=== PATIENT | male | born 1965 | race Caucasian/White ===

== ENCOUNTER 2016-08-04 23:25 | Inpatient (IN) | payer OTHER ==
[~2016-08-04] VITALS: Ht 182.9 cm; Wt 99.8 kg
[~2016-08-04 23:25] MED LIST: ACTONEL35 M1 PO; ADVAIR DISKU 11 UNIT INH; ALBUTEROL2.5 MG/3 M INH/SOL; AMITRIPTYLINE150 M2 PO; ASPIRIN CHILDRE81 MG PO; ATORVASTATIN CA20 MG PO; AUGMENTIN 875-1 EACH PO; BACLOFEN10 M1 PO; CANNABIS; COZAAR50 M1 PO; FUROSEMIDE40 M1 PO; FUROSEMIDE80 M1 PO; HYDRODIURIL 2525 MG PO; LASIX40 M1 PO; LASIX40 MG PO; LIORESAL 10MG T10 MG PO; LOSARTAN POTASS25 MG PO; METOLAZONE10 M1 PO; METOLAZONE2.5 M1 PO; METOLAZONE5 M1 PO; NAPROXEN500 MG PO; NEURONTIN800 M2 PO; OFEV150 MG; OXYCODONE HCL30 M1 PO; OXYCODONE HCL30 MG PO; OXYCONTIN60 M1 PO; OXYCONTIN80 MG PO; PREDNISONE10 M2 PO; PREDNISONE5 MG PO; PROAIR HFA8.5 GM INH
--- NOTE | 2016-08-04 23:38 | ED AMS/SEIZURE/WEAK/DIZZY ---
History of Present Illness General Chief Complaint: Dyspnea (COPD, CHF, Other) Stated Complaint: DIFF BREATHING CHEST DISCOMFORT Source: patient, family, old records, EMS Exam Limitations: clinical condition Vital Signs & Intake/Output Vital Signs & Intake/Output Vital Signs Date Time Temp Pulse Resp B/P Pulse O2 O2 Flow FiO2 Ox Delivery Rate 08/05 0358 98 Nasal 2.5L Cannula 08/05 0213 100 Nasal 2.5L Cannula 08/05 0030 100 Nasal 2.5L Cannula 08/04 2336 98.0 100 18 130/76 100 Room Air ED Intake and Output 08/05 0000 08/04 1200 Intake Total Output Total Balance Patient 220 lb Weight Allergies Coded Allergies: Iodinated Contrast Media - Oral and (IODINATED CONTRAST MEDIA - IV DYE) (RED RASH TOLERATES WITH BENADRYL 01/12/16) Reconcile Medications Albuterol Sulfate 2.5 MG/3 ML VIAL.NEB 1 Vial INH/[place] PRN COPD (Reported) Albuterol Sulfate (Albuterol Sulfate Hfa) 90 MCG HFA.AER.AD 2 PUFF INH Q4-6 PRN PRN SHORTNESS OF BREATH (Reported) 90 MCG PER PUFF Amitriptyline Hydrochloride (Amitriptyline HCl) 150 MG TAB 1 TAB PO DAILY NEUROPATHY (Reported) Aspirin (Children's Aspirin) 81 MG TAB.CHEW 1 TAB PO DAILY HEART HEALTH Baclofen 10 MG TABLET 1 TAB PO TID MUSCLE SPASMS (Reported) [CANNABIS] UNKNOWN (Reported) Fluticasone-Salmeterol (Advair 100-50 Diskus) 100 MCG-50 MCG/DOSE BLST.W.DEV 1 PUF INH BID BREATHING PROBLEMS (Reported) Furosemide 40 MG TABLET 2 TAB PO DAILY WATER PILL (Reported) Gabapentin 800 MG TABLET 1 TAB PO 4 TIMES/DAY NEUROPATHY (Reported) Losartan Potassium (Cozaar) 50 MG TABLET 1 TAB PO DAILY BP (Reported) Metolazone 2.5 MG TABLET 1 TAB PO DAILY PRN UNKNOWN (Reported) Oxycodone HCl (Oxycontin) 60 MG TAB.ER.12H 1 TAB PO BID PAIN (Reported) Oxycodone HCl 30 MG TABLET 1 TAB PO BID PAIN (Reported) Prednisone 10 MG TABLET 1 TAB PO DAILY COPD /INTERSTITIAL LUNG DISEAS Risedronate Sodium (Actonel) 35 MG TABLET 1 TAB PO QMON BONE (Reported) Triage Nurses Notes Reviewed? yes Onset: Abrupt Duration: hour(s): Timing: single episode today Injury Environment: home Severity: moderate Modifying Factors: Improves With: rest. Associated Symptoms: cough HPI: 51 yo gentleman h/o copd, presents with dyspnea and increased lethargy. Past History Travel History Traveled to [place] past 21 day No Medical History Any Pertinent Medical History? see below for history Neurological: peripheral neuropathy EENT: NONE Cardiovascular: CHF, hypertension, PULMONARY HTN RIGHT BUNDLE BRANCH BLOCK Respiratory: COPD, ? 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 No Review of Systems Review of Systems Constitutional: Reports: no symptoms. EENTM: Reports: no symptoms. Respiratory: Reports: no symptoms. Cardiovascular: Reports: no symptoms. GI: Reports: no symptoms. Genitourinary: Reports: no symptoms. Musculoskeletal: Reports: no symptoms. Skin: Reports: no symptoms. Neurological/Psychological: Reports: no symptoms. Hematologic/Endocrine: Reports: no symptoms. Immunologic/Allergic: Reports: no symptoms. All Other Systems: Reviewed and Negative Physical Exam Physical Exam General Appearance: well developed/nourished, lethargic, but easily arousable Head: atraumatic, normal appearance Eyes: Bilateral: normal appearance. Ears, Nose, Throat: normal pharynx, normal ENT inspection Neck: normal inspection, supple, full range of motion Respiratory: bilateral wheeze with prolonged expiratory phase Cardiovascular: regular rate/rhythm Gastrointestinal: normal bowel sounds, soft, non-tender, no organomegaly Back: normal inspection Extremities: normal range of motion Neurologic/Psych: no motor/sensory deficits, awake, alert, oriented x 3 Skin: intact, normal color, warm/dry Core Measures ACS in differential dx? No CVA/TIA Diagnosis: No Severe Sepsis Present: No Septic Shock Present: No All Positive = PERC Ruled Out: Positive: age < 50 years, heart rate < 100 bpm, O2 sat > 94%, no hemoptysis, no hormone use, no prior DVT or PE, no unilateral leg swellin, no surgery/trauma w/ in 4w. Progress Differential Diagnosis: copd vs med related issues vs pneumonia vs other. Plan of Care: Orders Procedure Date/time Status Nothing by Mouth 08/05 B Active Smith, Insertion/Removal/Asses 08/05 402 Active CULTURE,URINE 08/05 402 Active Skin Integrity Protocol 08/05 401 Active Skin/Pressure Ulcer Assess (Sk 08/05 401 Active Teach/Educate 08/05 330 Active Nutritional Intake, Monitor 08/05 330 Active Isolation 08/05 330 Active Patient Care Conference 08/05 330 Active Activity/Ambulation 08/05 330 Active Patient Data 08/05 023 Active EKG 08/05 022 Active Saline Lock 08/05 158 Active Misc Message 08/05 158 Active ED Holding Orders 08/05 158 Active Admit to inpatient 08/05 015 Active Vital Signs 08/05 015 Active Code Status 08/05 015 Active BLOOD CULTURE 08/05 0140 Active BLOOD CULTURE 08/05 0138 Active Add-on Test (ER Only) 08/05 0014 Active URINE DRUG SCREEN FOR ER ONLY 08/05 0014 Active URINALYSIS 08/05 0014 Active ETHANOL 08/04 2356 Complete ARTERIAL BLOOD GAS (GEN) 08/04 2337 Complete TROPONIN LEVEL 08/04 2337 Complete COMPREHENSIVE METABOLIC PANEL 08/04 2337 Complete CBC WITHOUT DIFFERENTIAL 08/04 2337 Complete Intake & Output 08/04 2333 Active Laboratory Tests 08/05/16 0010: pH 7.40, pCO2 40, pO2 52 L, HCO3 24, ABG O2 Sat (Measured) 86.0 L, P-50 (Temp Corrected) Y, Carboxyhemoglobin 1.6, O2 Concentration % RA, Temperature 98.0, Phlebotomy Draw Site LEFT RADIAL 08/04/166: Anion Gap 4 L, Estimated GFR 40 L, BUN/Creatinine Ratio 20.0, Glucose 80, Calcium 8.4, Total Bilirubin 0.2, AST 31, ALT 24, Alkaline Phosphatase 214 H, Troponin I 0.02, Total Protein 5.8 L, Albumin 2.1 L, Globulin 3.7, Albumin/ Globulin Ratio 0.6 L, CBC w Diff MAN DIFF ORDERED, RBC 3.67 L, MCV 77.5 L, MCH 25.4 L, RDW 20.5 H, MPV 5.8 L, Gran % 59.9, Lymphocytes % 25.5, Monocytes % 6.9, Eosinophils % 6.7 H, Basophils % 1.0, Absolute Granulocytes 10.2 H, Absolute Lymphocytes 4.3 H, Absolute Monocytes 1.2 H, Absolute Eosinophils 1.1 , Absolute Basophils 0.2, Platelet Estimate ADEQUATE, Hypochromic-Microcytic 1+, Poikilocytosis 1+, Stomatocytes 1+, PUBS MCHC 32.8 L, Serum Alcohol < 10.0 Microbiology 08/05 402 URINE ROUT: Urine Culture - ORD 08/05 0208 BLOOD: Blood Culture - RECD 08/05 015 BLOOD: Blood Culture - RECD Diagnostic Imaging: Viewed by Me: Radiology Read. Discussed w/RAD: Radiology Read. CXR Impression: no acute abnormality, no infiltrates, normal size heart, normal mediastinum, no definitive consolidation... full report below. Initial ED EKG: normal axis, normal intervals, normal p-waves, normal QRS complex, normal sinus rhythm Comments: PATIENT: TORSTEN CHAUDHARI PRESENT AGE: 51 PATIENT ACCOUNT NO: [id number] : 67 LOCATION: [facility] ORDERING PHYSICIAN: MEÑO LEI MD SERVICE DATE: 08/04/16 EXAM TYPE: RAD - XRY-PORTABLE CHEST XRAY EXAMINATION: XR PORTABLE CHEST CLINICAL INFORMATION: Wheezing COMPARISON: 06/30/2016 TECHNIQUE: Portable view of the chest was obtained. FINDINGS: Lung volumes are symmetric. There is redemonstrated diffuse interstitial prominence bilaterally, favoring underlying chronic lung disease. No definite acute consolidation. No evidence of pneumothorax or significant pleural effusion. The cardiomediastinal silhouette is grossly stable. There is contour irregularity of the left humeral head. IMPRESSION: Redemonstrated diffuse initial prominence favoring underlying chronic lung disease. No definite consolidation. DICTATED BY: KYMBERLY WHEAT MD DATE/TIME DICTATED:08/05/1612 COSTUME DRAPER:LAURA DATE/TIME TRANSCRIBED:08/05/1612 CONFIDENTIAL, DO NOT COPY WITHOUT APPROPRIATE AUTHORIZATION. <Electronically signed in Other Vendor System> SIGNED BY: KYMBERLY WHEAT MD 08/05/1617 Departure Departure Disposition: STILL A PATIENT Condition: Stable Clinical Impression Primary Impression: COPD exacerbation Secondary Impressions: Acute renal failure, Mental status change Referrals: YULI FRAZIER MD (PCP/Family) Departure Forms: Customer Survey General Discharge Information Admission Note Spoke With: YANIRA BARKER MD Documentation of Exam: Documentation of any treatments & extenuating circumstances including Concerns Regarding Discharge (functional status, medication knowledge or non-compliance, living conditions, etc.) that warrant an admission rather than observation: pt with dyspnea, hypoxia on abg, wheezing, also with acute renal failure, and mental status change (lethargy... most likely due to medications)... pt merits medical management, remove narcotics and monitor, give steroids/abx/iv fluids. Critical Care Note Critical Care Note Critical Care Time: 30-74 min
--- NOTE | 2016-08-04 23:41 | NUR ---
TRIAGE: PATIENT TO ER FROM HOME VERY DROWSY BUT AROUSABLE TO SHOUTING. 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 REPORTS NON-COMPLIANT TO HOME MEDS X 1 DAY. VSS. PATIENT ANSWERING QUESTIONS INTERMITTENTLY, THOUGH FALLS ASLEEP DURING TRIAGE. REPORTS COMPLIANT W/ MEDS. PATIENT NOTED ON MANY NARCOTICS FOR HX CHRONIC PAIN AND NEURIOPATHY, FOUND SITTING ON PORCH IN HIS HOME WHEELCHAIR. REPORTED TO EMS +AGITATION REGARDING BEING TRANSPORTED TO HOSPITAL.
--- NOTE | 2016-08-05 | NUR ---
LABS DRAWN AND SENT (1SST,1LAV,1 BLUE, 1SST)
--- NOTE | 2016-08-05 00:18 | RADIOLOGY REPORT ---
EXAMINATION: XR PORTABLE CHEST CLINICAL INFORMATION: Wheezing COMPARISON: 06/30/2016 TECHNIQUE: Portable view of the chest was obtained. FINDINGS: Lung volumes are symmetric. There is redemonstrated diffuse interstitial prominence bilaterally, favoring underlying chronic lung disease. No definite acute consolidation. No evidence of pneumothorax or significant pleural effusion. The cardiomediastinal silhouette is grossly stable. There is contour irregularity of the left humeral head. IMPRESSION: Redemonstrated diffuse initial prominence favoring underlying chronic lung disease. No definite consolidation.
[2016-08-05 00:23] LABS: ABSOLUTE BASOPHIL COUNT 0.2 /CUMM (0.0-0.2); ABSOLUTE EOSINOPHIL COUNT 1.1 /CUMM (0.0-0.7); ABSOLUTE GRANULOCYTE CT 10.2 /CUMM (1.4-6.5); ABSOLUTE LYMPH COUNT 4.3 /CUMM (1.2-3.4); ABSOLUTE MONOCYTE COUNT 1.2 /CUMM (0.10-0.60); EOSINOPHIL % 6.7 % (0-5); GRANULOCYTE % 59.9 % (42.2-75.2); HEMATOCRIT 28.4 % (42-52); MEAN CORPUSCULAR HGB 25.4 PG (27.0-31.0); MEAN CORPUSCULAR HGB CONC 32.8 G/DL (33.0-37.0); MEAN CORPUSCULAR VOLUME 77.5 FL (80.0-94.0); MEAN PLATELET VOLUME 5.8 FL (7.4-10.4); PLATELET COUNT 547 /CUMM (130-400); RBC DISTRIBUTION WIDTH 20.5 % (11.5-14.5); RED BLOOD CELL CT 3.67 /CUMM (4.70-6.10)
--- NOTE | 2016-08-05 00:25 | NUR ---
RESP AT BEDSIDE FOR TX. PT PUT ON 2.5 L O2 NC WHICH HE IS ON AT HOME/BASELINE. SATTING 96%.
--- NOTE | 2016-08-05 02:12 | NUR ---
ROCEPHIN INFUSING S/P BLOOD CULTURE COLLECTION. PATIENT REMAINS DROWSY THOUGH AROUSABLE FOR APPROX 5-8 SECONDS TO VERBAL STIMULI. FAMILY AT BEDSIDE. UPDATED ON POC FOR ADMISSION.
--- NOTE | 2016-08-05 02:26 | NUR ---
PATIENT TO CT BY STRETCHER.
--- NOTE | 2016-08-05 02:29 | History & Physical ---
THALIA HULL,[facility] [place]/05/16 0228: General Information and HPI MD Statement: I have seen and personally examined COSMO MONGE and documented this H&P. The patient is a 51 year old M who presented with a chief complaint of altered mental status. Source of Information: family, old records Exam Limitations: unable to give history, not alert/orientated, clinical condition History of Present Illness: Mr. 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 Patient is lethargic and unable to provide any history, thus history is obtained from patient's and EMR. Per patient's , patient was in his usual state of health until the morning of current presentation, when he became lethargic. He also complained of leg and back pain. Patient's held his morning dose of pain medications, Oxycontin and Oxycodone, in the setting of lethargy. Patient usually sleeps from 10 AM to 3 PM every day unless he has doctor appointments, but this morning he could not wake up for his scheduled appointment with senior painter Dr. Dailey for anemia. His continuously monitored his vitals and oxygen saturation by pulse oximetry throughout the day which were normal, however patient remained lethargic. Around 10:30 PM, patient became agitated and combative and tried to leave the house. EMS was called and patient was brought to the ED. Of note, patient has barely had anything to eat or drink the whole day and has not voided in the past 12 hours. His believes that it is unlikely that patient may have taken too many pain meds, as she is the one who usually administers his medications. Per patient's , his respiratory status has been worsening for the past 2 months and currently he gets dyspneic with minimal exertion, such as when using the bathroom, and requires 5 L of oxygen. Of note, patient is a current smoker of 1 PPD. Patient follows with CHF clinic as outpatient and is on an aggressive diuretic regimen. He takes metolazone 2.5 mg PO QD and furosemide 80 mg PO BID as well as IV furosemide once or twice per week at the CHF clinic. Patient has also been having weight gain as well as increasing leg swelling for the past few months. Allergies/Medications Allergies: Coded Allergies: Iodinated Contrast Media - Oral and (IODINATED CONTRAST MEDIA - IV DYE) (RED RASH TOLERATES WITH BENADRYL 01/12/16) Home Med list Albuterol Sulfate (Albuterol Sulfate Hfa) 90 MCG HFA.AER.AD 2 PUFF INH Q4-6 PRN PRN SHORTNESS OF BREATH (Reported) 90 MCG PER PUFF Amitriptyline Hydrochloride (Amitriptyline HCl) 150 MG TAB 1 TAB PO DAILY NEUROPATHY (Reported) Aspirin (Children's Aspirin) 81 MG TAB.CHEW 1 TAB PO DAILY HEART HEALTH Baclofen 10 MG TABLET 1 TAB PO TID MUSCLE SPASMS (Reported) [CANNABIS] UNKNOWN (Reported) Fluticasone-Salmeterol (Advair 100-50 Diskus) 100 MCG-50 MCG/DOSE BLST.W.DEV 1 PUF INH BID COPD (Reported) Furosemide 40 MG TABLET 2 TAB PO DAILY WATER PILL (Reported) Gabapentin 800 MG TABLET 1 TAB PO 4 TIMES/DAY NEUROPATHY (Reported) Losartan Potassium (Cozaar) 50 MG TABLET 1 TAB PO DAILY BP (Reported) Metolazone 2.5 MG TABLET 1 TAB PO DAILY PRN UNKNOWN (Reported) Oxycodone HCl (Oxycontin) 60 MG TAB.ER.12H 1 TAB PO BID PAIN (Reported) Oxycodone HCl 30 MG TABLET 1 TAB PO BID PAIN (Reported) Prednisone 10 MG TABLET 1 TAB PO DAILY COPD /INTERSTITIAL LUNG DISEAS Risedronate Sodium (Actonel) 35 MG TABLET 1 TAB PO QMON BONE (Reported) Compliance With Home Meds: GOOD Past History Travel History Traveled to [place] past 21 day No Medical History Blood Transfusion Hx: Yes Neurological: peripheral neuropathy (critical illness neuropathy) EENT: NONE Cardiovascular: CHF, hypertension, hyperlipidemia, right-sided heart failure Respiratory: COPD, 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), ARDS and prolonged mechanical ventilation Gastrointestinal: NONE Hepatic: NONE Renal: NONE Musculoskeletal: OSTEOPENIA, 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 Home Who Do You Live With? spouse, child Services at Home: Oxygen Smoking Status: Current Everyday Smoker (1 PPD) ETOH Use: occasional use Illicit Drug Use: denies illicit drug use Living Will? yes Functional Ability ADLs Independent: dressing, eating, toileting, bathing. Ambulation: independent IADLs Needs Assist: food prep, medication admin. Review of Systems Review of Systems Constitutional: Denies: chills, fever. EENTM: Reports: no symptoms. Cardiovascular: Reports: peripheral edema. Respiratory: Reports: no symptoms. GI: Reports: no symptoms. Genitourinary: Reports: no symptoms. Musculoskeletal: Reports: no symptoms. Skin: Reports: no symptoms. Neurological/Psychological: Reports: see HPI. Hematologic/Endocrine: Reports: no symptoms. Immunologic/Allergic: Reports: no symptoms. Exam & Diagnostic Data Last 24 Hrs of Vital Signs/I&O Vital Signs Date Time Temp Pulse Resp B/P Pulse O2 O2 Flow FiO2 Ox Delivery Rate 08/05 0213 100 Nasal 2.5L Cannula 08/05 0030 100 Nasal 2.5L Cannula 08/04 2336 98.0 100 18 130/76 100 Room Air Intake & Output 08/05 0800 08/05 0000 08/04 1600 Intake Total Output Total Balance Patient 99.79 kg Weight Physical Exam General Appearance Lethargic but Arousable to Verbal Stimuli HEENT PERRLA, Dry Mucous Membranes, Oropharynx Clear Without Erythema or Exudates Neck No JVD Cardiovascular Regular Rate, Normal S1, Normal S2, No Murmurs, Gallops, Rubs Lungs Coarse Breath Sounds on Bilateral Anterior Lung Hamilton Abdomen Soft, No Tenderness, Positive Bowel Sounds Extremities No Cyanosis, Clubbing on Bilateral Fingers, 2+ Pitting Edema and Chronic Venous Stasis Changes on Bilateral Lower Extremities Last 24 Hrs of Labs/Alonso: Laboratory Tests 08/05/16 0010: pH 7.40, pCO2 40, pO2 52 L, HCO3 24, ABG O2 Sat (Measured) 86.0 L, P-50 (Temp Corrected) Y, Carboxyhemoglobin 1.6, O2 Concentration % RA, Temperature 98.0, Phlebotomy Draw Site LEFT RADIAL 08/04/16 3676: Anion Gap 4 L, Estimated GFR 40 L, BUN/Creatinine Ratio 20.0, Glucose 80, Calcium 8.4, Total Bilirubin 0.2, AST 31, ALT 24, Alkaline Phosphatase 214 H, Troponin I 0.02, Total Protein 5.8 L, Albumin 2.1 L, Globulin 3.7, Albumin/ Globulin Ratio 0.6 L, CBC w Diff MAN DIFF ORDERED, RBC 3.67 L, MCV 77.5 L, MCH 25.4 L, RDW 20.5 H, MPV 5.8 L, Gran % 59.9, Lymphocytes % 25.5, Monocytes % 6.9, Eosinophils % 6.7 H, Basophils % 1.0, Absolute Granulocytes 10.2 H, Absolute Lymphocytes 4.3 H, Absolute Monocytes 1.2 H, Absolute Eosinophils 1.1 , Absolute Basophils 0.2, Platelet Estimate ADEQUATE, Hypochromic-Microcytic 1+, Poikilocytosis 1+, Stomatocytes 1+, PUBS MCHC 32.8 L, Serum Alcohol < 10.0 Microbiology 08/05 0208 BLOOD: Blood Culture - RECD 08/05 154 BLOOD: Blood Culture - RECD Diagnostic Data EKG Results Sinus tachycardia HR 102 RBBB or LPFB QTc 485 CXR Results Redemonstrated diffuse initial prominence favoring underlying chronic lung disease. No definite consolidation. Other Results CT HEAD: Limited evaluation due to patient motion artifact. No acute findings identified. Assessment/Plan Assessment: Mr. 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 #AMS: Most likely metabolic encephalopathy secondary to volume contraction and DEE. Differential includes polypharmacy, acute hypoxemic respiratory failure and infection including aspiration pneumonia or UTI. CT Head unremarkable. * UTox ordered. * Check ammonia. * Patient is on amitriptyline 150 mg PO QD, Baclofen 10 mg PO TID and gabapentin 800 mg PO QID. Continue these medications, but at lower doses to avoid seizures. * BCx, UCx and UA ordered to rule out infection. #Acute hypoxemic respiratory failure: Most likely secondary to COPD exacerbation given coarse breath sounds on lung exam. However CHF is a possibility in the setting of BLE edema, although CXR is clear. ABG 7.40/40/52/24 on 2.5 L NC, remarkable for low pO2. S/p Solumedrol 125 mg IV in the ED. * Pulmonology consulted. Appreciate their recs. * TRC nebs and pulmonary toilet. * Solumedrol IV Q8H. * Provide supplemental oxygen as needed to keep SpO2 > 92%. * Repeat CXR in the AM to rule out consolidation. #DEE: Cr 1.8 on admission, increased from baseline of 1.0. Most likely pre-renal secondary to volume contraction in the setting of reduced PO intake and aggressive diuretic regimen including Lasix and metolazone. Patient has had very low UOP, which could represent urinary retention secondary to amitriptyline, but he is resistant to straight cath or Lorenzana placement. * Consider nephrology consult. * Strict I/Os. * Gentle hydration with NS @ 50 cc/hr. Monitor for respiratory distress due to concern for volume overload in the setting of CHF. * Continue to monitor lytes and kidney function. * Avoid nephrotoxic medications. * Hold all diuretics, furosemide and metolazone. * Hold prior to admission losartan. * Straight cath or bladder scan patient to rule out urinary retention. HFpEF: Most recent ECHO in December 2015 with LVEF estimated at 60-65%. History of pulmonary HTN and right-sided heart failure. Follows with CHF clinic and is on an aggressive diuretic regimen. Takes metolazone 2.5 mg PO QD and furosemide 80 mg PO BID as well as IV furosemide once or twice per week at the CHF clinic. Currently patient appears dry on exam, although has been having leg swelling and weight gain concerning for CHF. * Obtain cardiology consult. Appreciate their recs. * Hold all diuretics, furosemide and metolazone. #Anemia: Hgb 9.3 on admission. MCV 77.5 consistent with microcytic anemia. Chronic anemia requiring blood transfusions for which he follows with Dr. Dailey. Has had positive FOBT recently, GI work-up with endoscopy and colonoscopy pending. * NTD. #Leukocytosis: WBC 17 on admission. Likely secondary to chronic steroid use as patient is on maintenance steroids, prednisone 10 mg PO QD, for COPD although infection needs to be ruled out in the setting of encephalopathy. Patient is afebrile. CXR with no evidence of pneumonia. * BCx, UCx and UA ordered to rule out infection. Diet: NPO DVT PPx: HSQ and ALPs Pain: Tylenol 650 mg PO Q6H PRN for mild pain (scale 1-3) CODE: FULL As Ranked By This Provider Problem List: 1. COPD exacerbation 2. Altered mental status 3. Acute renal failure 4. ILD (interstitial lung disease) 5. (HFpEF) heart failure with preserved ejection fraction Core Measures/Miscellaneous Acute Coronary Syndrome ACS Diagnosis: No Cerebrovascular Accident CVA/TIA Diagnosis: No Congestive Heart Failure CHF Diagnosis: No Venous Thromboembolism VTE Risk Factors: Acute medical illness, Age > 40, CHF or Resp failure, Smoking VTE Prophylaxis Ordered Inpt: Mech & Pharm No Mech VTE prophylaxis d/t: No contraindications No VTE Pharm Prophylaxis d/t: No contraindications VTE Diagnosis: No VTE Type: NONE VTE Confirmed by (Test): NONE Severe Sepsis Severe Sepsis Present: No Septic Shock Septic Shock Present: No Miscellaneous Documentation Attending Case Discussed With: YANIRA BARKER MD Primary Care Physician: YULI FRAZIER MD Patient sees these Specialists [place] Cosmo Willingham MD Manufacturing Planner Shawanda Mckoy MD Neurologist Zaki Liu MD Interactive Developer Cosmo Aguilar MD Fire Alarm Installer Garrett Dailey MD Ice Cream Mixer Garrett Mcgraw MD Level of Patient Care: Telemetry BRYANT HULLCLAU 08/05/16 0534: Resident Review Statement Resident Statement: examined this patient, discussed with public health internship, agreed with public health internship Other Findings: 51 YO male with pmh copd on home O2, ild, chf, htn, hld and anemia who presents with ams since waking up this morning. During the interview patient is lethargic and unable to provide history. Most of the history was obtained from patients . he also is complained of leg and back pain. is unsure as to why he is lethargic, denies fevers, chills, urinary tract symptoms, cough or sputum production. He does have chronic pain though she has been holding his pain medications since last night. She reports that he has been aggitated today and more lethargic and that prompted his arrival. She feels that his respiratory status has been declining as of late, and complains that he has been gaining weight despite going to chf clinic for iv diuretics. T 98, P 100, RR 18, BP 130/76, O2 100 2.5NC Alert Oriented X1 NCAT, BREEZY, EOMI, cracked lips, with dry mucous membranes CVS S1,S2 difficult to assess due to coarse adventious sounds Resp coarse breath sounds scattered bilaterally Abdomen soft, non tender, BS+ Ext healing wounds on feet, no source of infection, trace edema b/l ABG 7.40, pCO2 40, pO2 52, ABG O2 Sat 86 WBC 17K HH 9.3/28.4 Creatinine 1.8 Anion gap 4, Total Protein 5.8, Albumin 2.1 Sinus Tachycardia HR 102 RBB QTc [address] limited evaluation due to patient motion artifact, no acute findings identified CXR diffuse inital prominence favoring underlying chronic lung disease, no definite consolidation 50 YO male with pmh of copd, chf, htn, ild presents to the hospital with acute onset ams that started today, abg demonstrates hypoxia. urine samples have been asked from patient unable to void, denies placement of lorenzana or straight catheterization. will need to check urine, urine culture, toxicology as sources that may be causing his ams. His creatinine has increased on this admission, likely prerenal however post renal cant be ruled out at this time as will not allow placement of catheter. if he doesnt void he may require renal usg. this has been discussed with him at length. for now we will hydrate him with gentle fluids. we will check ammonia levels and cardiac enzymes/ekg. patient was re- examined at 5am and was more alert and understood our plan. YANIRA BARKER 08/05/16 0640: Attending MD Review Statement Attending Statement Attending MD Statement: examined this patient, discuss w/resident/PA/POSITION CLASSIFIER, agreed w/resident/PA/POSITION CLASSIFIER, discussed with family, reviewed EMR data (avail), reviewed images, amended to note Attending Assessment/Plan: Cc: Lethargy, SOB. PMH: HFpEF, ILD, COPD on 2.5 L O2, HTN, HTN Patient presented with lethargy, SOB, increased oxygen demand, confusion, decreased by mouth intake, decreased urine output. History is mostly obtained from patient's . Patient's helps him in medications. They refuse any extra doses of pain medications taken today. Vitals: Afebrile, HR 100, RR 20, BP 130/76, saturating 100% on 2.5 L. On exam: Patient is alert, O 2, irritable, no acute distress, mucosa dry, no JVD, neck supple, no lymphadenopathy, CVS: S1-S2, RRR. RS: Diffuse coarse crackles. Abdomen: Soft, NT, ND, bowel sounds present. Bilateral lower extremity edema, chronic stasis changes. There are some open wounds and scabs on the medial and lateral aspect of ankle, does not appear infected. No evidence of cellulitis. No focal neuro deficit, overall decreased strength in lower extremities. Labs: WBC 17.0, as be 9.3, platelets 547, BUN 36, creatinine 1.8, glucose 80, alkaline phosphatase 214, troponin 0.02, albumin 2.1. ABG 7.40/40/52/24 on [address] head: Limited evaluation due to patient's motion artifact CXR: Redemonstration of diffuse interstitial prominence favoring underlying chronic lung disease. No consolidation. A and P #1 encephalopathy: Probably metabolic secondary to volume contraction and DEE. Rule out infection with blood culture, urine analysis and urine cultures. CT head is motion artifact, but no focal neuro deficit. Check ammonia. Polypharmacy can be one of the reasons. Patient on amitriptyline, gabapentin and baclofen, continue these medications at lower doses to avoid any seizure precipitation. #2 acute kidney injury: Patient's previous creatinine was 1.0, 5 days back. Patient on aggressive diuretic's, Lasix and metolazone. Follows up with heart failure clinic. Probably prerenal secondary to volume contraction. Continue gentle hydration normal saline at 50 mL per hour for 500 mL to 1 L. Keep a close eye on respiratory status for volume overload. Rule out retention as patient is on amitriptyline, either straight cath or bladder scan. Strict I's and O's monitoring, nephrology consult. Hold losartan for now. #3 acute worsening of hypoxia: Patient has underlying COPD, ILD: Continue nebulization with albuterol and ipratropium, continue O2 by nasal cannula, Mucinex. Repeat chest x-ray in a.m. to rule out any developing consolidation or vascular congestion. #4 history of heart failure: Currently patient appears volume contracted, continue gentle hydration, hold Lasix, and inform cardiology. #5 anemia: Appears chronic, iron deficiency, has been following up with hematology outpatient. #6 leukocytosis: Patient on chronic prednisone, which may cause leukocytosis. It has been chronic. But given patient's encephalopathy rule out infection with urine culture urine analysis blood cultures. #7 DVT prophylaxis with heparin, adequate pain control.
--- NOTE | 2016-08-05 03:13 | NUR ---
HOUSE STAFF AT BEDSIDE FOR EVAL
--- NOTE | 2016-08-05 03:22 | CT SCAN REPORT ---
EXAMINATION: CT HEAD WITHOUT CONTRAST CLINICAL INFORMATION: Mental status change COMPARISON: 12/22/2015 TECHNIQUE: Contiguous axial imaging was performed from the skull base to vertex without intravenous administration of contrast. DLP: 1220.30 mGy-cm. FINDINGS: Assessment is limited due to patient motion artifact. No acute intracranial hemorrhage or territorial infarction is identified. No abnormal mass effect or midline shift is seen. Ham to white matter differentiation is well preserved. No extra-axial fluid collections are identified. The ventricles are normal in size. There is appreciable no abnormal attenuation within the brain parenchyma. The osseous structures and soft tissues are normal. The mastoid air cells and visualized portions of the paranasal sinuses are well aerated. IMPRESSION: Limited evaluation due to patient motion artifact. No acute findings identified.
[2016-08-05] MEDS ORDERED: ADVAIR 100-501 EACH INH (04:08)
--- NOTE | 2016-08-05 04:17 | NUR ---
PATIENT MORE ALERT AT THIS TIME, SPEECH REMNAINS SLOW AND CLEAR. PATIENT EDUCATED ON YEE INDICTION AND INSERTION. PATIENT REFUSING, REPORTING "NO WAY, NO WAY." PATIENT WILL ATTEMPT TO USE URINAL AT THIS TIME. HOUSE STAFF PAGED.
--- NOTE | 2016-08-05 04:23 | NUR ---
PATIENT CONTINUES TO REFUSE YEE. URINAL PROPPED IN PLACE AT THIS TIME, PATIENT THEN STATES "WELL I DON'T HAVE TO GO RIGHT NOW." AWAITING CALL FROM HOUSE STAFF. PATIENT NOTED W/ SLIMY, WHITE LIQUID ON PENIS, +ODOR.
--- NOTE | 2016-08-05 04:29 | NUR ---
SPOKE W/ MD OLGUIN (BEEPER 300) REGARDING REFUSAL OF YEE CATH AND WHITE SUBSTANCE ON PENIS. PER MD, BLADDER SCAN PATIENT IF PATIENT ALLOWS. CORETTA ALICIA OBTAINING BLADDER SCANNER FROM ICU AT THIS TIME. PATIENT NOTED W/ DRY MUCOUS MEMBRANES. NS INITIATED AT 50ML/HR PER EMAR. TOLERATED WELL.
--- NOTE | 2016-08-05 04:58 | NUR ---
PATIENT PLACED ON HOSPITAL BED IN ROOM, INFORMED THAT HE WILL BE A HOLD IN DEPT. BLADDER SCANNER UNOBTAINABLE AT THIS TIME, MD AWARE. WILL CONTINUE TO ATTEMPT TO OBTAIN FROM ICU. PATIENT DECLINES ANY SUPPORTIVE PILLOWS, REFUSING BILATERAL LOWER EXT TO BE ELEVATED OR SUPPORTIVE PILLOWS. REFUSING TO LET NURSING STAFF TURN AND REPOSITION AT THIS TIME. EDUCATED ON RISKS, CONTINUES TO REFUSE. HOUSE STAFF AT BEDSIDE.
--- NOTE | 2016-08-05 05:10 | NUR ---
PATIENT REQUESTING WATER, AWARE ORDER FOR NPO IS PLACED, MD PAGED TO CONFIRM.
--- NOTE | 2016-08-05 06:21 | NUR ---
IPOC CONTINUED AND UTD.
--- NOTE | 2016-08-05 06:42 | Admission Certification ---
Admission Certification Certification Statement - As attending physician, I certify that at the time of - admission, based on clinical presentation, severity of - symptoms, need for further diagnostic testing and - therapeutic interventions, and risk of adverse outcomes - without in-hospital treatment, in my clinical assessment, - this patient requires an acute hospital stay for a minimum - of two nights or longer. I have also considered psychsocial - factors such as support system, advanced age, financial - issues, cognitive issues, and failed out-patient treatments, - past re-admission history, safety of patient, and lack of - compliance as applicable. Specific rationale supporting this admission is: Encephalopathy, acute kidney injury
--- NOTE | 2016-08-05 06:48 | NUR ---
PATIENT NOTED TO BE INCONTINENT OF URINE INTO BED PRIOR TO TELLING RN KNOW OF PATIENT URGE TO VOID. URINE SPECIMEN NOT OBTAINED. CONTINUES TO REFUSE YEE CATH. MD OLGUIN (BEEPER 300) AWARE. PATIENT ALSO REFUSING HEPARIN SC SHOT PER ORDER, AWARE. PATIENT LINENS CHANGED, JOCY CARE PROVIDED, TURNED AND REPOSITIONED S/P CHANGING PATIENT.
[2016-08-05 06:50] VITALS: BP 161/85
--- NOTE | 2016-08-05 06:52 | NUR ---
IPOC CONTINUED AND UTD.
--- NOTE | 2016-08-05 07:17 | NUR ---
CARE ASSUMED BY THIS RN, PT SLEEPING, NORMAL RR NOTED. WILL CONTINUE TO MONITOR.
--- NOTE | 2016-08-05 07:41 | PN- Housestaff ---
MANISH HULL,LISETTE 08/05/16 0740: Subjective Follow-up For: AMS Tele-Events Since Last Visit: No overnight events noted SInus tachy Subjective: Patient is more alert, awake today, lying comfortable on bed. able to answer questions appropriately Denies shortness of breath, breathing at baseline Review of Systems Constitutional: Reports: see HPI. Objective Last 24 Hrs of Vital Signs/I&O Vital Signs Date Time Temp Pulse Resp B/P Pulse O2 O2 Flow FiO2 Ox Delivery Rate 08/05 0834 95 Nasal 2.0L Cannula 08/05 0834 98.3 118 20 152/66 95 Nasal 2.0L Cannula 08/05 0829 98.3 118 20 152/66 95 Nasal 2.0L Cannula 08/05 0650 97.7 108 20 161/85 98 Nasal 2.5L Cannula 08/05 0631 97.7 108 20 161/85 98 Nasal 2.5L Cannula 08/05 0418 96.6 100 20 137/66 96 Nasal 2.5L Cannula 08/05 0358 98 Nasal 2.5L Cannula 08/05 0213 100 Nasal 2.5L Cannula 08/05 0030 100 Nasal 2.5L Cannula 08/04 2336 98.0 100 18 130/76 100 Room Air Intake & Output 08/05 1600 08/05 0800 08/05 0000 Intake Total Output Total Balance Patient 220 lb 220 lb Weight Physical Exam General Appearance: Alert, Oriented X3, Cooperative, No Acute Distress Skin: multiple bruising present in the UE HEENT: dry mucous membrane Cardiovascular: Regular Rate, Normal S1, Normal S2, No Murmurs Lungs: b/l crackles present. b/l ronchi present Abdomen: Normal Bowel Sounds, Soft, No Tenderness Neurological: No focal neurological defecit Extremities: b/l swelling present Current Medications: Current Medications Sig/Silvana Start time Last Medication Dose Route Stop Time Status Admin Acetaminophen 650 MG Q6P PRN 08/05 0645 AC PO Albuterol Sulfate 3 ML Q6P PRN 08/05 0645 AC INH Albuterol Sulfate 3 ML ONCE ONE 08/04 2345 DC 08/05 INH 08/04 2346 0030 Amitriptyline HCl 150 MG DAILY 08/05 1000 AC PO Aspirin 81 MG DAILY 08/05 1000 AC PO Azithromycin 500 MG ONCE ONE 08/05 0145 DC 08/05 Dextrose/Water 250 ML IV 08/05 0244 0240 Baclofen 10 MG TID 08/05 1000 AC PO Budesonide/ 2 PUF BID 08/05 1000 AC Formoterol Fumarate INH Ceftriaxone Sodium 0 .STK-MED ONE 08/05 0203 DC .ROUTE Ceftriaxone Sodium 1,000 MG ONCE ONE 08/05 0145 DC 08/05 IV 08/05 0146 0210 Gabapentin 600 MG Q8 08/05 1400 UNVr PO Heparin Sodium 5,000 UNIT Q8 08/05 0636 AC (Porcine) SC Ipratropium Nolan 2.5 ML ONCE ONE 08/05 0645 DC INH 08/05 0646 Ipratropium Nolan 2.5 ML ONCE ONE 08/04 2345 DC 08/05 INH 08/04 2346 0029 Methylprednisolone 40 MG Q8 08/05 1400 AC IV Methylprednisolone 0 .STK-MED ONE 08/05 0203 DC .ROUTE Methylprednisolone 125 MG ONCE ONE 08/05 0145 DC 08/05 IV 08/05 0146 0240 Oxycodone HCl 30 MG Q12 08/05 1000 UNVr PO Sodium Chloride 1,000 ML ONCE ONE 08/05 0415 AC 08/05 IV 08/06 0014 0429 Last 24 Hrs of Lab/Alonso Results Last 24 Hrs of Labs/Mics: Laboratory Tests 08/05/16 0837: Sodium Pending, Potassium Pending, Chloride Pending, Carbon Dioxide Pending, Anion Gap Pending, BUN Pending, Creatinine Pending, BUN/Creatinine Ratio Pending , Troponin I Pending 08/05/16 0010: pH 7.40, pCO2 40, pO2 52 L, HCO3 24, ABG O2 Sat (Measured) 86.0 L, P-50 (Temp Corrected) Y, Carboxyhemoglobin 1.6, O2 Concentration % RA, Temperature 98.0, Phlebotomy Draw Site LEFT RADIAL 08/04/16 6317: Anion Gap 4 L, Estimated GFR 40 L, BUN/Creatinine Ratio 20.0, Glucose 80, Calcium 8.4, Total Bilirubin 0.2, AST 31, ALT 24, Alkaline Phosphatase 214 H, Troponin I 0.02, Total Protein 5.8 L, Albumin 2.1 L, Globulin 3.7, Albumin/ Globulin Ratio 0.6 L, CBC w Diff MAN DIFF ORDERED, RBC 3.67 L, MCV 77.5 L, MCH 25.4 L, RDW 20.5 H, MPV 5.8 L, Gran % 59.9, Lymphocytes % 25.5, Monocytes % 6.9, Eosinophils % 6.7 H, Basophils % 1.0, Absolute Granulocytes 10.2 H, Absolute Lymphocytes 4.3 H, Absolute Monocytes 1.2 H, Absolute Eosinophils 1.1 , Absolute Basophils 0.2, Platelet Estimate ADEQUATE, Hypochromic-Microcytic 1+, Poikilocytosis 1+, Stomatocytes 1+, PUBS MCHC 32.8 L, Serum Alcohol < 10.0 Microbiology 08/05 0800 URINE ROUT: Urine Culture - ORD 08/05 0403 URINE ROUT: Urine Culture - COLB 08/05 0208 BLOOD: Blood Culture - RECD 08/05 0155 BLOOD: Blood Culture - RECD Assessment/Plan Assessment: Mr. Monge is a 50 y/o M with PMHx of COPD on 2.5 L of oxygen, HFpEF, HTN, critical illness neuropathy, HLD and anemia who presents with altered mental status x 1 day Today patient is awake alert and oriented 3. Able to answer questions appropriately. Is currently on IV fluids at a very low rate. 1. Altered mental status secondary to polypharmacy along with a component of dehydration in the setting off diuretics versus infection (cultures pending) vs metabolic . Patient mentation improved today. No focal neurological deficit seen. CT scan done the ED showed limited evaluation secondary to motion artifact. Currently patient doesn't have focal neurological deficit on exam. We'll continue to watch him off of antibiotics for now pending cultures. Received 1 dose of ceftriaxone and azithromycin in the ED. We will restart his medication including Amytriptyline and baclofen at his home dose. We will reduce his gabapentin/oxycontin and resume his home dose in 24 hrs depending on his clinical status. 2. Acute hypoxemic respiratory failure secondary to COPD exacerbation along with history of progressive worsening pulmonary fibrosis ( patient has reactive adenopathy without malignancy confirmed on bronchoscopy and mediastinoscopy done in July 2015 ) . Once by mouth steroids and regular basis. We'll continue him on IV steroids. Will obtain pulmonary consult 3. Leucocytosis: Chronic on prednisone. Will hold off antibiotics pending cultures. 4. Heart failure presented ejection fraction: Previous echo done in 2016 showed a normal ejection fraction with right ventricular systolic present and 40s. Follows Dr. Willingham. Follows up at CHF clinic once a week and is a 60 mg of IV Lasix. Lasix on hold due to worsening renal functions. Will collect continue to monitor I's and O's and daily weights. Will obtain Cardiology consult 5. DEE mostly prerenal in the setting off over diuresis: We'll continue on gentle hydration. Labs in a.m. pending. Renal biopsy done on 01/27/17 showed mild to moderate arterial and arteriolononephrosclerosis. Changes suggestive of early diabetic nephropathy. Patient doesn't have history of diabetes but has significant proteinuria. Follows Dr. Aguilar 6 chronic pain: Currently on oxycodone Contin which is on hold ssecondary to AMS. We will restart at 1/2 of his home dose today. 7.Distal symmetric sensory neuropathy: On amitriptyline and a high dose of Combivent in which we will continue. 8. progressive worsening of pulmonary fibrosis : steroid dependent. Was followed by the [facility] lung transplant program FUll code status DVT ppx on SC heparin Problem List: 1. (HFpEF) heart failure with preserved ejection fraction 2. Altered mental status 3. Acute renal failure 4. Mental status change 5. Lethargy Pain Ratin Pain Location: generalised body pain Pain Goal: Pain 4 or less Pain Plan: on long acting pain medication Tomorrow's Labs & Rationales: will need it KHLOE GILL MD 08/05/16 1131: Attending MD Review Statement Attending Statement Attending MD Statement: examined this patient, discuss w/resident/PA/INCIDENT RESPONSE COORDINATOR, agreed w/resident/PA/INCIDENT RESPONSE COORDINATOR, reviewed EMR data (avail), discussed with nursing, reviewed images Attending Assessment/Plan: 51 year-old male with history of inhalational injury, restrictive lung disease and interstitial lung disease who was admitted with a change in medication, hypoxia( questionable different from baseline). Initially all of his sedatives and anxiolytics were held and now will slowly restart them at half dose watching his mentation and respiratory status closely. Appreciate Dr. Braga's consult, will get a VQ scan and a repeat chest x-ray PA and lateral. He is on IV steroids and will continue that for now. All of his diuretics are held given the DEE and will follow that closely.
--- NOTE | 2016-08-05 07:50 | NUR ---
LISETTE AT BEDSIDE FOR EVAL.
[2016-08-05 08:34] VITALS: BP 152/66
--- NOTE | 2016-08-05 09:12 | NUR ---
PT PROVIDED BREAKFAST TRAY.
--- NOTE | 2016-08-05 10:26 | NUR ---
PHARM CALLED FOR MEDS.
--- NOTE | 2016-08-05 10:47 | Cons- Pulmonary ---
General Information and HPI Consulting Request Date of Consult: 08/05/16 Requested By: vishal Reason for Consult: Interstitial lung disease History of Present Illness: Patient is 51-year-old gentleman is had progressive interstitial lung disease complicated by nephrotic syndrome pulmonary hypertension admitted because of abnormal mental status. He is now awake alert denies chest pain or alteration in his degree of shortness of breath is chronically oxygen dependent. Oxygen saturations have been preserved. Arterial blood gases show no evidence of hypercarbia. Chest x-ray is somewhat underpenetrated and rotated may show some increased interstitial prominence and possible increased density at left base. Allergies/Medications Allergies: Coded Allergies: Iodinated Contrast Media - Oral and (IODINATED CONTRAST MEDIA - IV DYE) (RED RASH TOLERATES WITH BENADRYL 01/12/16) Home Med List: Albuterol Sulfate (Albuterol Sulfate Hfa) 90 MCG HFA.AER.AD 2 PUFF INH Q4-6 PRN PRN SHORTNESS OF BREATH (Reported) 90 MCG PER PUFF Amitriptyline Hydrochloride (Amitriptyline HCl) 150 MG TAB 1 TAB PO DAILY NEUROPATHY (Reported) Aspirin (Children's Aspirin) 81 MG TAB.CHEW 1 TAB PO DAILY HEART HEALTH Baclofen 10 MG TABLET 1 TAB PO TID MUSCLE SPASMS (Reported) [CANNABIS] UNKNOWN (Reported) Fluticasone-Salmeterol (Advair 100-50 Diskus) 100 MCG-50 MCG/DOSE BLST.W.DEV 1 PUF INH BID COPD (Reported) Furosemide 40 MG TABLET 2 TAB PO DAILY WATER PILL (Reported) Gabapentin 800 MG TABLET 1 TAB PO 4 TIMES/DAY NEUROPATHY (Reported) Losartan Potassium (Cozaar) 50 MG TABLET 1 TAB PO DAILY BP (Reported) Metolazone 2.5 MG TABLET 1 TAB PO DAILY PRN UNKNOWN (Reported) Oxycodone HCl (Oxycontin) 60 MG TAB.ER.12H 1 TAB PO BID PAIN (Reported) Oxycodone HCl 30 MG TABLET 1 TAB PO BID PAIN (Reported) Prednisone 10 MG TABLET 1 TAB PO DAILY COPD /INTERSTITIAL LUNG DISEAS Risedronate Sodium (Actonel) 35 MG TABLET 1 TAB PO QMON BONE (Reported) Review of Systems Review of Systems Constitutional: Denies: chills, fever. Cardiovascular: Reports: edema, peripheral edema. Denies: chest pain. Respiratory: Reports: short of breath. Denies: hemoptysis, sputum production, stridor, wheezing. GI: Denies: abdominal pain, diarrhea, melena. Past History Travel History Traveled to [place] past 21 day No Medical History Blood Transfusion Hx: Yes Neurological: peripheral neuropathy (critical illness neuropathy) EENT: NONE Cardiovascular: CHF, hypertension, hyperlipidemia, PULMONARY HTN RIGHT BUNDLE BRANCH BLOCK Respiratory: COPD, interstitial lung disease, ? LUNG INJURY INTERSTITIAL LUNG DISEASE Gastrointestinal: NONE Hepatic: NONE Renal: NONE Musculoskeletal: OSTEOPENIA Psychiatric: NONE Endocrine: NONE Blood Disorders: anemia Cancer(s): NONE PERINATAL TECH/Reproductive: NONE Surgical History Surgical History: VENOUS CLOSURE X 5 TO BLE BRONCHOSCOPY Family History Relations & Conditions If Any: SISTER FH: hypertension FATHER Cerebral hemorrhage Psychosocial History Where Do You Live? Home Who Do You Live With? spouse, child Services at Home: Oxygen Smoking Status: Current Everyday Smoker (1 PPD) ETOH Use: occasional use Illicit Drug Use: denies illicit drug use Living Will? yes Functional Ability ADLs Independent: dressing, eating, toileting, bathing. Ambulation: independent IADLs Needs Assist: food prep, medication admin. Exam & Diagnostic Data Last 24 Hrs of Vital Signs/I&O Vital Signs Date Time Temp Pulse Resp B/P Pulse O2 O2 Flow FiO2 Ox Delivery Rate 08/05 0834 95 Nasal 2.0L Cannula 08/05 0834 98.3 118 20 152/66 95 Nasal 2.0L Cannula 08/05 0829 98.3 118 20 152/66 95 Nasal 2.0L Cannula 08/05 0650 97.7 108 20 161/85 98 Nasal 2.5L Cannula 08/05 0631 97.7 108 20 161/85 98 Nasal 2.5L Cannula 08/05 0418 96.6 100 20 137/66 96 Nasal 2.5L Cannula 08/05 0358 98 Nasal 2.5L Cannula 08/05 0213 100 Nasal 2.5L Cannula 08/05 0030 100 Nasal 2.5L Cannula 08/04 2336 98.0 100 18 130/76 100 Room Air Intake & Output 08/05 1600 08/05 0800 08/05 0000 Intake Total Output Total Balance Patient 220 lb 220 lb Weight Oxygen saturation on 2 L 95% HNT exam shows no adenopathy exam of his chest shows scattered crackles there are no wheezes heard cardiac exam shows a rapid regular rhythm S1 and S2 is normal without murmurs abdominal exam is soft nontender extremities have 2+ symmetrical edema Last 48 Hrs of Labs/Alonso: Laboratory Tests 08/05/16 0837: Anion Gap 5, Estimated GFR 59 L, BUN/Creatinine Ratio 26.9 H, Troponin I 0.02 08/05/16 0010: pH 7.40, pCO2 40, pO2 52 L, HCO3 24, ABG O2 Sat (Measured) 86.0 L, P-50 (Temp Corrected) Y, Carboxyhemoglobin 1.6, O2 Concentration % RA, Temperature 98.0, Phlebotomy Draw Site LEFT RADIAL 08/04/16 2356: Anion Gap 4 L, Estimated GFR 40 L, BUN/Creatinine Ratio 20.0, Glucose 80, Calcium 8.4, Total Bilirubin 0.2, AST 31, ALT 24, Alkaline Phosphatase 214 H, Troponin I 0.02, Total Protein 5.8 L, Albumin 2.1 L, Globulin 3.7, Albumin/ Globulin Ratio 0.6 L, CBC w Diff MAN DIFF ORDERED, RBC 3.67 L, MCV 77.5 L, MCH 25.4 L, RDW 20.5 H, MPV 5.8 L, Gran % 59.9, Lymphocytes % 25.5, Monocytes % 6.9, Eosinophils % 6.7 H, Basophils % 1.0, Absolute Granulocytes 10.2 H, Absolute Lymphocytes 4.3 H, Absolute Monocytes 1.2 H, Absolute Eosinophils 1.1 , Absolute Basophils 0.2, Platelet Estimate ADEQUATE, Hypochromic-Microcytic 1+, Poikilocytosis 1+, Stomatocytes 1+, PUBS MCHC 32.8 L, Serum Alcohol < 10.0 Assessment/Plan Impression/Plan: 51-year-old gentleman with progressive restrictive ventilatory defect due to interstitial lung disease after inhalational injury admitted with abnormal mental status in the setting of poly-opiate administration. Arterial blood gases showed evidence of significant hypoxia which appears to have improved. He remains tachycardic. Transient acute kidney injury is improving. Concern over persistent tachycardia and initial hypoxia is raised in the setting of interstitial lung disease and nephrotic syndrome which are predisposing factors for thrombo-embolism. Recommendations: Obtain tox screen from admission blood. Repeat PA chest x-ray and obtain d- dimer and VQ scan. Would hold IV contrast in view of recent acute kidney injury Consult Acknowledgment - Thank you for your consult request.
--- NOTE | 2016-08-05 13:19 | NUR ---
PT TO AND FROM XRAY VIA WHEELCHAIR.
--- NOTE | 2016-08-05 13:38 | RADIOLOGY REPORT ---
EXAMINATION: XR CHEST CLINICAL INFORMATION: Altered mental status. Possible hypoxic encephalopathy. COMPARISON: 08/04/2016 TECHNIQUE: PA and lateral views of the chest were obtained. FINDINGS: The lungs are well expanded. Persistent diffuse interstitial prominence. Interstitial prominence is seen over multiple prior studies, although it may be mildly increased on the current study. Small left pleural effusion. Aeration at the left base is somewhat improved from prior. No pneumothorax. The cardiomediastinal silhouette is unchanged. IMPRESSION: Diffuse interstitial prominence. While there is documented chronic interstitial disease, this appears somewhat increased and could represent superimposed edema versus small airways process. Small left pleural effusion.
--- NOTE | 2016-08-05 14:01 | NUR ---
HOUSE STAFF PAGED AT #[phone] FOR CLARIFICATION OF DIET ORDER.
--- NOTE | 2016-08-05 14:02 | NUR ---
PT ADMITTED TO ROOM 173
--- NOTE | 2016-08-05 14:33 | NUR ---
PT TO NUC MED VIA WHEELCHAIR NOW.
--- NOTE | 2016-08-05 15:52 | NUR ---
PT NOTED TO BE INCREASINGLY DROWSY. CLAU PAGED AT #[phone]. AWAITING CALL BACK. DR. JOHANSEN AT BEDSIDE. O2 SAT 99% ON NC 2L. WILL CONTINUE TO MONITOR.
--- NOTE | 2016-08-05 16:06 | NUR ---
PT NOTED TO BE DROWSY TO STERNAL RUB. HOUSE STAFF PAGED WITHOUT CALL BACK. DR. DEL CASTILLO AT BEDSIDE TO ASSESS PT. PT MEDICATED WITH NARCAN PER ORDER. PT NOW MUCH MORE ALERT AND AWAKE. MOD PAGED TO INFORM.
--- NOTE | 2016-08-05 16:11 | NUR ---
SPOKE WITH MOD IN REGARDS TO PT. AWARE OF PT'S STATUS.
--- NOTE | 2016-08-05 16:27 | NUCLEAR MEDICINE REPORT ---
EXAMINATION: NM LUNG SCAN V/Q CLINICAL INFORMATION: Hypoxemia. Shortness of breath. COMPARISON: Chest x-ray dated 08/05/2016. TECHNIQUE: Perfusion scan performed following intravenous demonstration of 4.2 mCi technetium 99m MAA. Images obtained in multiple projections. Ventilation scan following administration of 16.6 mCi xenon-133. First breath, equilibrium and washout images obtained in posterior projection. FINDINGS: Perfusion scan demonstrates multiple nonsegmental and a small subsegmental perfusion defect in the left lung. No evidence of a segmental or moderate to large subsegmental defect. Nonsegmental decreased perfusion mid right lung. Ventilation images demonstrate fairly homogeneous ventilation bilateral lungs. Mild retention of the radiotracer noted in the right lower lung on the washout images compatible with mild air trapping. Chest x-ray demonstrates vascular congestion and suggestion of mild interstitial edema likely corresponding to the nonsegmental defects. IMPRESSION: Low probability for pulmonary embolism.
[2016-08-05 17:07] VITALS: BP 140/86
--- NOTE | 2016-08-05 18:46 | Cons- Cardiology ---
General Information and HPI Consulting Request Date of Consult: 08/05/16 Requested By: JAIRO HULL,KHLOE [place] Reason for Consult: Mental status changes with increasing LE edema Source of Information: patient, family, old records History of Present Illness: 51 year old male well known to me. Known ILD, PHTN, right heart failure with LE edema aggravated by recent nephrotic syndrome. He has missed his last few office visits and intermittently has been going to the CHF clinic. Apparently he has been taking his lasix and has also been using metalozone at home. Here now with several weeks of worsening dyspnea and increasing mental status changes / lethargy. When seen by me in the ER the patient was minimally responsive with a respiratory rate of 6/min about 3 hours after receiving his oxycontin. Improved post Narcan. Allergies/Medications Allergies: Coded Allergies: Iodinated Contrast Media - Oral and (IODINATED CONTRAST MEDIA - IV DYE) (RED RASH TOLERATES WITH BENADRYL 01/12/16) Home Med List: Albuterol Sulfate (Albuterol Sulfate Hfa) 90 MCG HFA.AER.AD 2 PUFF INH Q4-6 PRN PRN SHORTNESS OF BREATH (Reported) 90 MCG PER PUFF Amitriptyline Hydrochloride (Amitriptyline HCl) 150 MG TAB 1 TAB PO DAILY NEUROPATHY (Reported) Aspirin (Children's Aspirin) 81 MG TAB.CHEW 1 TAB PO DAILY HEART HEALTH Baclofen 10 MG TABLET 1 TAB PO TID MUSCLE SPASMS (Reported) [CANNABIS] UNKNOWN (Reported) Fluticasone-Salmeterol (Advair 100-50 Diskus) 100 MCG-50 MCG/DOSE BLST.W.DEV 1 PUF INH BID COPD (Reported) Furosemide 40 MG TABLET 2 TAB PO DAILY WATER PILL (Reported) Gabapentin 800 MG TABLET 1 TAB PO 4 TIMES/DAY NEUROPATHY (Reported) Losartan Potassium (Cozaar) 50 MG TABLET 1 TAB PO DAILY BP (Reported) Metolazone 2.5 MG TABLET 1 TAB PO DAILY PRN UNKNOWN (Reported) Oxycodone HCl (Oxycontin) 60 MG TAB.ER.12H 1 TAB PO BID PAIN (Reported) Oxycodone HCl 30 MG TABLET 1 TAB PO BID PAIN (Reported) Oxycodone HCl (Oxycontin) 30 MG TAB.ER.12H 1 TAB PO BID LEG PAIN Prednisone 10 MG TABLET 0 PO DAILY COPD On Take 08/06-08/07 40MG 08/08-08/09 30 MG 08/10-08/11 20MG 08/12 10 MG AND CONTINUE DAILY AT THE SAME DOSE Prednisone 10 MG TABLET 1 TAB PO DAILY COPD /INTERSTITIAL LUNG DISEAS Risedronate Sodium (Actonel) 35 MG TABLET 1 TAB PO QMON BONE (Reported) Current Medications: Current Medications Sig/Silvana Start time Last Medication Dose Route Stop Time Status Admin Acetaminophen 650 MG Q6P PRN 08/05 0645 AC PO Albuterol Sulfate 3 ML Q6P PRN 08/05 0645 AC INH Albuterol Sulfate 3 ML ONCE ONE 08/04 2345 DC 08/05 INH 08/04 2346 0030 Amitriptyline HCl 150 MG DAILY 08/05 1000 AC 08/05 PO 1134 Aspirin 81 MG DAILY 08/05 1000 AC 08/05 PO 1134 Azithromycin 500 MG ONCE ONE 08/05 0145 DC 08/05 Dextrose/Water 250 ML IV 08/05 0244 0240 Baclofen 10 MG TID 08/05 1000 AC 08/05 PO 1134 Budesonide/ 2 PUF BID 08/05 1000 AC 08/05 Formoterol Fumarate INH 1134 Ceftriaxone Sodium 0 .STK-MED ONE 08/05 0203 DC .ROUTE Ceftriaxone Sodium 1,000 MG ONCE ONE 08/05 0145 DC 08/05 IV 08/05 0146 0210 Gabapentin 600 MG Q8 08/05 1400 AC 08/05 PO 1533 Heparin Sodium 5,000 UNIT Q8 08/05 0636 AC (Porcine) SC Ipratropium [place] 2.5 ML ONCE ONE 08/05 0645 DC INH 08/05 0646 Ipratropium [place] 2.5 ML ONCE ONE 08/04 2345 DC 08/05 INH 08/04 2346 0029 Methylprednisolone 40 MG Q8 08/05 1400 AC 08/05 IV 1533 Methylprednisolone 0 .STK-MED ONE 08/05 0203 DC .ROUTE Methylprednisolone 125 MG ONCE ONE 08/05 0145 DC 08/05 IV 08/05 0146 0240 Naloxone HCl 0.4 MG ONCE ONE 08/05 1615 DC 08/05 IV 08/05 1616 1615 Naloxone HCl 0 .STK-MED ONE 08/05 1600 DC .ROUTE Oxycodone HCl 5 MG Q6 PRN 08/05 1630 AC PO Oxycodone HCl 0 .STK-MED ONE 08/05 1130 DC PO Oxycodone HCl 30 MG Q12 08/05 1000 DC 08/05 PO 1134 Sodium Chloride 1,000 ML ONCE ONE 08/05 0415 AC 08/05 IV 08/06 0014 0429 Past History Travel History Traveled to [place] past 21 day No Medical History Blood Transfusion Hx: Yes Neurological: peripheral neuropathy (critical illness neuropathy) EENT: NONE Cardiovascular: CHF, hypertension, hyperlipidemia, right-sided heart failure Respiratory: COPD, 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), ARDS and prolonged mechanical ventilation Gastrointestinal: NONE Hepatic: NONE Renal: NONE Musculoskeletal: OSTEOPENIA 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 Home Who Do You Live With? spouse, child Services at Home: Oxygen Smoking Status: Current Everyday Smoker (1 PPD) ETOH Use: occasional use Illicit Drug Use: denies illicit drug use Living Will? yes Functional Ability ADLs Independent: dressing, eating, toileting, bathing. Ambulation: independent IADLs Needs Assist: food prep, medication admin. ECHO Results (as available) Report: CONCLUSIONS 1. This was a technically difficult and somewhat limited examination due to the patient's body habitus. 2. Minimal to mild aortic sclerosis is present with no evidence of valvular stenosis or insufficiency. 3. Mitral leaflet thickening is present with mild mitral insufficiency and mild left atrial dilatation. 4. There is no significant pericardial fluid present. 5. The left ventricular chamber size and systolic function are normal. Borderline concentric hypertrophy is present. There are no obvious resting wall motion abnormalities. 6. The RV chamber is upper normal in size with mild to moderate tricuspid insufficiency, mild right atrial dilatation and an estimated RV systolic pressure of 42 mmHg. Exam & Diagnostic Data Vital Signs and I&O Vital Signs Date Time Temp Pulse Resp B/P Pulse O2 O2 Flow FiO2 Ox Delivery Rate 08/05 1723 97 Nasal 2.5L Cannula 08/05 1707 97.5 92 18 140/86 94 Nasal 2.0L Cannula 08/05 1636 97.0 98 15 134/79 99 Nasal 2.0L Cannula 08/05 1433 97 20 117/67 99 Nasal 2.0L Cannula 08/05 1301 96.3 102 18 126/75 98 Nasal 2.0L Cannula 08/05 1102 96.8 111 18 122/66 96 Nasal 2.0L Cannula 08/05 0834 95 Nasal 2.0L Cannula 08/05 0834 98.3 118 20 152/66 95 Nasal 2.0L Cannula 08/05 0829 98.3 118 20 152/66 95 Nasal 2.0L Cannula 08/05 0650 97.7 108 20 161/85 98 Nasal 2.5L Cannula 08/05 0631 97.7 108 20 161/85 98 Nasal 2.5L Cannula 08/05 0418 96.6 100 20 137/66 96 Nasal 2.5L Cannula 08/05 0358 98 Nasal 2.5L Cannula 08/05 0213 100 Nasal 2.5L Cannula 08/05 0030 100 Nasal 2.5L Cannula 08/04 2336 98.0 100 18 130/76 100 Room Air Intake & Output 08/05 1600 08/05 0800 08/05 0000 08/04 1600 08/04 0800 08/04 0000 Intake Total 0 Output Total 450 Balance -450 Intake, Oral 0 Number 1 Bowel Movements Output, Urine 450 Patient 220 lb 220 lb Weight Physical Exam: General Appearance Awake and alert post narcan HEENT PERRLA, Dry Mucous Membranes, Oropharynx Clear Without Erythema or Exudates Neck No JVD, carotid normal bilaterally Cardiovascular Regular Rate, Normal S1, Normal S2, No Murmurs, Gallops, Rubs Lungs Coarse Breath Sounds on Bilateral Anterior Lung [place] Abdomen Soft, No Tenderness, Positive Bowel Sounds Extremities No Cyanosis, Clubbing on Bilateral Fingers,1-2+ Pitting Edema and Chronic Venous Stasis Changes on Bilateral Lower Extremities Labs/Alonso Results: Laboratory Tests 08/05 08/05 08/05 1750 1135 0837 Chemistry Sodium (137 - 145 mmol/L) 135 L Potassium (3.5 - 5.1 mmol/L) 4.4 Chloride (98 - 107 mmol/L) 105 Carbon Dioxide (22 - 30 mmol/L) 25 Anion Gap (5 - 16) 5 BUN (9 - 20 mg/dL) 35 H Creatinine (0.7 - 1.2 mg/dL) 1.3 H Estimated GFR (>60 ml/min) 59 L BUN/Creatinine Ratio (7 - 25 %) 26.9 H Troponin I (<0.11 ng/ml) Pending 0.02 Toxicology Urine Opiates Screen (>2000 NG/ML) 287.00 Methadone Screen (>300 NG/ML) 69 Barbiturate Screen (>200 NG/ML) < 60 Ur Phencyclidine Scrn (>25 NG/ML) < 6.00 Amphetamines Screen (>1000 NG/ML) < 100 U Benzodiazepines Scrn (>200 NG/ML) < 85 Urine Cocaine Screen (>300 NG/ML) < 50 Urine Cannabis Screen (>50 NG/ML) 71.70 H Urines Urinalysis LIGHT H Urine Color (YEL,AMB,STR) YEL Urine Clarity (CLEAR) CLEAR Urine pH (5.0 - 8.0) 6.5 Ur Specific [place] (1.001 - 1.035) 1.020 Urine Protein (NEG,<30 MG/DL) 100 H Urine Ketones (NEG) NEG Urine Nitrite (NEG) NEG Urine Bilirubin (NEG) NEG Urine Urobilinogen (0.1 - 1.0 EU/dl) 0.2 Ur Leukocyte Esterase (NEG) NEG Ur Microscopic SEDIMENT EXAMINED Urine RBC (0 - 5 /HPF) 25-50 H Urine WBC (0 - 2 /HPF) 10-15 H Ur Epithelial Cells (NONE,FEW) RARE Hyaline Casts (0/LPF) 15-25 H Granular Casts (NONE /LPF) RARE H Urine Mucus (FEW,NONE) FEW Urine Hemoglobin (NEG) MOD H Urine Glucose (N MG/DL) NEG 08/05 08/04 0010 2356 Blood Gas pH (7.35 - 7.45 PH) 7.40 pCO2 (35 - 45 TORR) 40 pO2 (80 - 100 TORR) 52 L HCO3 (21 - 28 MEQ/L) 24 ABG O2 Sat (Measured) (>96.0 %) 86.0 L P-50 (Temp Corrected) Y Carboxyhemoglobin (1.5 - 5.0 %) 1.6 O2 Concentration % RA Temperature (97.0 - 100.0 FARH) 98.0 Chemistry Sodium (137 - 145 mmol/L) 135 L Potassium (3.5 - 5.1 mmol/L) 4.1 Chloride (98 - 107 mmol/L) 103 Carbon Dioxide (22 - 30 mmol/L) 27 Anion Gap (5 - 16) 4 L BUN (9 - 20 mg/dL) 36 H Creatinine (0.7 - 1.2 mg/dL) 1.8 H Estimated GFR (>60 ml/min) 40 L BUN/Creatinine Ratio (7 - 25 %) 20.0 Glucose (65 - 99 mg/dL) 80 Calcium (8.4 - 10.2 mg/dL) 8.4 Total Bilirubin (0.2 - 1.3 mg/dL) 0.2 AST (17 - 59 U/L) 31 ALT (21 - 72 U/L) 24 Alkaline Phosphatase (< 127 U/L) 214 H Troponin I (<0.11 ng/ml) 0.02 Total Protein (6.3 - 8.2 g/dL) 5.8 L Albumin (3.5 - 5.0 g/dL) 2.1 L Globulin (1.9 - 4.2 gm/dL) 3.7 Albumin/Globulin Ratio (1.1 - 2.2 %) 0.6 L Hematology CBC w Diff MAN DIFF ORDERED WBC (4.8 - 10.8 /CUMM) 17.0 H RBC (4.70 - 6.10 /CUMM) 3.67 L Hgb (14.0 - 18.0 G/DL) 9.3 L Hct (42 - 52 %) 28.4 L MCV (80.0 - 94.0 FL) 77.5 L MCH (27.0 - 31.0 PG) 25.4 L RDW (11.5 - 14.5 %) 20.5 H Plt Count (130 - 400 /CUMM) 547 H MPV (7.4 - 10.4 FL) 5.8 L Gran % (42.2 - 75.2 %) 59.9 Lymphocytes % (20.5 - 51.1 %) 25.5 Monocytes % (1.7 - 9.3 %) 6.9 Eosinophils % (0 - 5 %) 6.7 H Basophils % (0.0 - 2.0 %) 1.0 Absolute Granulocytes (1.4 - 6.5 /CUMM) 10.2 H Absolute Lymphocytes (1.2 - 3.4 /CUMM) 4.3 H Absolute Monocytes (0.10 - 0.60 /CUMM) 1.2 H Absolute Eosinophils (0.0 - 0.7 /CUMM) 1.1 Absolute Basophils (0.0 - 0.2 /CUMM) 0.2 Platelet Estimate (ADEQUATE) ADEQUATE Hypochromic-Microcytic 1+ Poikilocytosis 1+ Stomatocytes 1+ PUBS MCHC (33.0 - 37.0 G/DL) 32.8 L Miscellaneous Phlebotomy Draw Site LEFT RADIAL Toxicology Serum Alcohol (<10 MG/DL) < 10.0 Diagnostic Data CXR Results FINDINGS: The lungs are well expanded. Persistent diffuse interstitial prominence. Interstitial prominence is seen over multiple prior studies, although it may be mildly increased on the current study. Small left pleural effusion. Aeration at the left base is somewhat improved from prior. No pneumothorax. The cardiomediastinal silhouette is unchanged. IMPRESSION: Diffuse interstitial prominence. While there is documented chronic interstitial disease, this appears somewhat increased and could represent superimposed edema versus small airways process. Small left pleural effusion. Other Results V/Q: IMPRESSION: Low probability for pulmonary embolism. Assessment/Plan Assessment/Plan Assessment: 1. Worsening dyspnea likley related to exacerbation of underlying ILD / COPD 2. Mental status changes with increased lethargy, likely multifactorial 3. Acute renal insufficiency - likely related to diuretics, poor po intake, etc 4. Pulmonary HTN with chronic cor pulmonale. 5. Venous insufficiency with edema and stasis changes. 6. Microcytic anemia 7. Hypoalbuminemia likely related to Nephrotic syndrome, poor nutritional status etc Recommendations: - Continue as per Pulmonary - Nephrology input pending - Hold diuretics for now - Followup echocardiogram to reassess LVEF and RV systolic pressure - Avoid pain medication if possible - Agree wtih gentle hydration - Followup labs in AM Consult Acknowledgment - Thank you for your consult request.
--- NOTE | 2016-08-05 19:37 | NUR ---
LATE ENTRY: PT ARRIVED TO THE FLOOR AT 1655, EKG AND TROP ORDERED, DENIES CP. PT SETTLED IN ROOM
[2016-08-05 22:00] VITALS: BP 130/60
--- NOTE | 2016-08-06 07:30 | PN- Housestaff ---
MANISH HULL,LISETTE 08/06/16 0730: Subjective Follow-up For: AMS improved Tele-Events Since Last Visit: Normal sinus rhythm with heart rates consistently in 100 Subjective: Patient examined today at bedside. Appears comfortable. He is upset because he is not able to take showers are more around. Patient did have one episode lethargy in the emergency department and was placed on Narcan drip which she responded well. His long-acting OxyContin was stopped and patient was placed on low-dose short-acting oxycodone. Complaint of leg pain overnight and received 1 dose of oxycodone 30 mg. Denies chest pain, palpitations, breathing back to baseline. Review of Systems Constitutional: Reports: see HPI. Objective Last 24 Hrs of Vital Signs/I&O Vital Signs Date Time Temp Pulse Resp B/P Pulse O2 O2 Flow FiO2 Ox Delivery Rate 08/06 0800 97.8 90 22 130/60 97 Nasal 2.0L Cannula 08/06 0744 96 Nasal 2.0L Cannula 08/06 0022 101 92 08/06 0000 CPAP 08/05 2200 97.7 100 20 130/60 95 CPAP 08/05 2058 Nasal 2.5L Cannula 08/05 1723 97 Nasal 2.5L Cannula 08/05 1707 97.5 92 18 140/86 94 Nasal 2.0L Cannula 08/05 1636 97.0 98 15 134/79 99 Nasal 2.0L Cannula 08/05 1433 97 20 117/67 99 Nasal 2.0L Cannula 08/05 1301 96.3 102 18 126/75 98 Nasal 2.0L Cannula 08/05 1102 96.8 111 18 122/66 96 Nasal 2.0L Cannula Intake & Output 08/06 1600 08/06 0800 08/06 0000 Intake Total 200 200 Output Total Balance 200 200 Intake, Oral 200 200 Physical Exam General Appearance: Alert, Oriented X3, Cooperative, No Acute Distress Skin: No Rashes Cardiovascular: Regular Rate, Normal S1, Normal S2, No Murmurs Lungs: bilateral rhonchi present Abdomen: Normal Bowel Sounds, Soft Neurological: decreased sensation in the lower extremity Extremities: bilateral pitting pedal edema. Fungal infection of both the nails Current Medications: Current Medications Sig/Silvana Start time Last Medication Dose Route Stop Time Status Admin Acetaminophen 650 MG Q6P PRN 08/05 0645 AC PO Albuterol Sulfate 3 ML TID 08/05 2200 AC 08/06 INH 0741 Albuterol Sulfate 3 ML Q6P PRN 08/05 0645 AC INH Amitriptyline HCl 150 MG DAILY 08/05 1000 AC 08/05 PO 1134 Aspirin 81 MG DAILY 08/05 1000 AC 08/05 PO 1134 Baclofen 10 MG TID 08/05 1000 AC 08/05 PO 2235 Budesonide/ 2 PUF BID 08/05 1000 AC 08/05 Formoterol Fumarate INH 2237 Gabapentin 600 MG Q8 08/05 1400 AC 08/06 PO 0600 Heparin Sodium 5,000 UNIT Q8 08/05 0636 AC 08/06 (Porcine) SC 0600 Ipratropium [place] 2.5 ML TID 08/05 2200 AC 08/06 INH 0741 Methylprednisolone 40 MG Q8 08/05 1400 AC 08/06 IV 0629 Naloxone HCl 0.4 MG ONCE ONE 08/05 1615 DC 08/05 IV 08/05 1616 1615 Naloxone HCl 0 .STK-MED ONE 08/05 1600 DC .ROUTE Oxycodone HCl 30 MG ONCE ONE 08/05 2315 DC 08/05 PO 08/05 2316 2320 Oxycodone HCl 5 MG Q6 PRN 08/05 1630 AC 08/05 PO 2236 Oxycodone HCl 0 .STK-MED ONE 08/05 1130 DC PO Oxycodone HCl 30 MG Q12 08/05 1000 DC 08/05 PO 1134 Sodium Chloride 1,000 ML ONCE ONE 08/05 0415 DC 08/05 IV 08/06 0014 0429 Last 24 Hrs of Lab/Alonso Results Last 24 Hrs of Labs/Mics: Laboratory Tests 08/06/16 0610: Anion Gap 4 L, Estimated GFR 59 L, BUN/Creatinine Ratio 37.7 H, CBC w Diff Pending, WBC Pending, RBC Pending, Hgb Pending, Hct Pending, MCV Pending, MCH Pending, RDW Pending, Plt Count Pending, MPV Pending, Gran % Pending, Lymphocytes % Pending, Monocytes % Pending, Eosinophils % Pending, Basophils % Pending, Absolute Granulocytes Pending, Absolute Lymphocytes Pending, Absolute Monocytes Pending, Absolute Eosinophils Pending, Absolute Basophils Pending, PUBS MCHC Pending 08/05/16 1750: Troponin I 0.02 01/19/17 1135: Urine Opiates Screen 287.00, Methadone Screen 69, Barbiturate Screen < 60, Ur Phencyclidine Scrn < 6.00, Amphetamines Screen < 100, U Benzodiazepines Scrn < 85, Urine Cocaine Screen < 50, Urine Cannabis Screen 71.70 H, Urinalysis LIGHT H, Urine Color YEL, Urine Clarity CLEAR, Urine pH 6.5, Ur Specific [place] 1.020 , Urine Protein 100 H, Urine Ketones NEG, Urine Nitrite NEG, Urine Bilirubin NEG, Urine Urobilinogen 0.2, Ur Leukocyte Esterase NEG, Ur Microscopic SEDIMENT EXAMINED, Urine RBC 25-50 H, Urine WBC 10-15 H, Ur Epithelial Cells RARE, Hyaline Casts 15-25 H, Granular Casts RARE H, Urine Mucus FEW, Urine Hemoglobin MOD H, Urine Glucose NEG Assessment/Plan Assessment: Mr. Monge is a 50 y/o M with PMHx of COPD on 2.5 L of oxygen, HFpEF, HTN, critical illness neuropathy, HLD and anemia who presents with altered mental status x 1 day Today patient is awake alert and oriented 3. Able to answer questions appropriately. 1. Altered mental status secondary to polypharmacy along with a component of dehydration in the setting off diuretics versus infection - We will watch off of antibiotics -Urine cultures not sent yet. - We will adjust his long-acting pain medications and reduce it to 30 twice a day and changes short acting from twice a day to every 6. Discussed with patient he is in agreement. 2. Acute hypoxemic respiratory failure secondary to COPD exacerbation along with history of progressive worsening pulmonary fibrosis ( patient has reactive adenopathy without malignancy confirmed on bronchoscopy and mediastinoscopy done in July 2015 ) . - VQ scan low probability for PE - Will change to IV solumederol to Q12 pending pulm rec 3. Persistent tachycardia with heart rate in 100s overnight. Etiology unclear - No evidence of dehydration - PE ruled out - Not on rate controlling medications - Question to start him on CCB's control both his heart rate and blood pressure - Per patient he is plan for a cardiac cath next month by his corn cutter. Will need a Holter monitor as an outpatient 3. Leucocytosis: Chronic on prednisone. - Labs/cultures pending -Continue to watch off antibiotics 4. Heart failure presented ejection fraction: - echo done in 2015 showed a normal ejection fraction with RVSP in 40s. - Lasix on hold. - Will reduce Lasix after monitor creatinine today 5. DEE mostly prerenal in the setting off over diuresis: - A.m. labs pending - Renal biopsy done on 01/27/17 showed mild to moderate arterial and arteriolononephrosclerosis. Changes suggestive of early diabetic nephropathy. - Patient doesn't have history of diabetes but has significant proteinuria. Follows Dr. Aguilar 6 chronic pain: - We will adjust pain medications as mentioned above 7.Distal symmetric sensory neuropathy: - Continue amitriptyline at his home dose and gabapentin 8. progressive worsening of pulmonary fibrosis : - steroid dependent. [facility] FUll code status DVT ppx on SC heparin Problem List: 1. (HFpEF) heart failure with preserved ejection fraction 2. Altered mental status 3. Acute renal failure Pain Ratin Pain Location: legs Pain Goal: Pain 4 or less Pain Plan: meds as in EMR Tomorrow's Labs & Rationales: Yes JAIRO HULL,KHLOE 08/06/16 1044: Attending MD Review Statement Attending Statement Attending MD Statement: examined this patient, discuss w/resident/PA/FUEL OPERATOR, agreed w/resident/PA/FUEL OPERATOR, reviewed EMR data (avail), discussed with nursing, reviewed images Attending Assessment/Plan: Patient was initially very keen on leaving today. We convinced him to stay here , specially given cardiology's recommendations, watching the BUN and creatinine and given that his heart rate still fairly rapid. He is a 51-year-old male with advanced lung disease awaiting a lung transplant, he has interstitial lung disease and inhalational exposure with COPD. He also has chronic diastolic heart failure and he came in with altered mentation that we think is secondary to opiates with DEE. We have his Lasix, metolazone and losartan on hold. His creatinine is 1.3, his BUN is 49. I think the elevated BUN reflects the steroids. He is using the CPAP at night. We'll hold the diuretics and watch his mentation closely. He has agreed to restart the opiates at half dose because of the worry of opiate-induced sedation. If he does okay and his BUN and creatinine are stable and his mentation is stable he could probably be discharged tomorrow. We clarified the diuretics were Dr. Willingham on discharge and will send him out on Lasix 80 mg a day with losartan 50 mg a day without any metolazone with close follow-up in the CHF clinic.
--- NOTE | 2016-08-06 07:31 | PN- Pulmonary ---
Subjective HPI/Critical Care Issues: Patient is awake alert and respiratory status has returned to baseline Objective Current Medications: Current Medications Sig/Silvana Start time Last Medication Dose Route Stop Time Status Admin Acetaminophen 650 MG Q6P PRN 08/05 0645 AC PO Albuterol Sulfate 3 ML TID 08/05 2200 AC 08/05 INH 2147 Albuterol Sulfate 3 ML Q6P PRN 08/05 0645 AC INH Amitriptyline HCl 150 MG DAILY 08/05 1000 AC 08/05 PO 1134 Aspirin 81 MG DAILY 08/05 1000 AC 08/05 PO 1134 Baclofen 10 MG TID 08/05 1000 AC 08/05 PO 2235 Budesonide/ 2 PUF BID 08/05 1000 AC 08/05 Formoterol Fumarate INH 2237 Gabapentin 600 MG Q8 08/05 1400 AC 08/06 PO 0600 Heparin Sodium 5,000 UNIT Q8 08/05 0636 AC 08/06 (Porcine) SC 0600 Ipratropium [place] 2.5 ML TID 08/05 2200 AC 08/05 INH 2148 Methylprednisolone 40 MG Q8 08/05 1400 AC 08/06 IV 0629 Naloxone HCl 0.4 MG ONCE ONE 08/05 1615 DC 08/05 IV 08/05 1616 1615 Naloxone HCl 0 .STK-MED ONE 08/05 1600 DC .ROUTE Oxycodone HCl 30 MG ONCE ONE 08/05 2315 DC 08/05 PO 08/05 2316 2320 Oxycodone HCl 5 MG Q6 PRN 08/05 1630 AC 08/05 PO 2236 Oxycodone HCl 0 .STK-MED ONE 08/05 1130 DC PO Oxycodone HCl 30 MG Q12 08/05 1000 DC 08/05 PO 1134 Sodium Chloride 1,000 ML ONCE ONE 08/05 0415 DC 08/05 IV 08/06 0014 0429 Vital Signs & I&O Last 24 Hrs of Vitals and I&O: Vital Signs Date Time Temp Pulse Resp B/P Pulse O2 O2 Flow FiO2 Ox Delivery Rate 08/06 0022 101 92 08/06 0000 CPAP 08/05 2199 97.7 100 20 130/60 95 CPAP 08/05 2058 Nasal 2.5L Cannula 08/05 1723 97 Nasal 2.5L Cannula 08/05 1707 97.5 92 18 140/86 94 Nasal 2.0L Cannula 08/05 1636 97.0 98 15 134/79 99 Nasal 2.0L Cannula 08/05 1433 97 20 117/67 99 Nasal 2.0L Cannula 08/05 1301 96.3 102 18 126/75 98 Nasal 2.0L Cannula 08/05 1102 96.8 111 18 122/66 96 Nasal 2.0L Cannula 08/05 0834 95 Nasal 2.0L Cannula 08/05 0834 98.3 118 20 152/66 95 Nasal 2.0L Cannula 08/05 0829 98.3 118 20 152/66 95 Nasal 2.0L Cannula Intake & Output 08/06 0800 08/06 0000 08/05 1600 Intake Total 200 0 Output Total 450 Balance 200 -450 Intake, Oral 200 0 Number 1 Bowel Movements Output, Urine 450 Oxygen saturation on 2.5 L 92% exam of his chest shows scattered crackles cardiac exam shows regular S1 and S2 without murmurs is chronic edema Impression/Plan Impression/Plan Impression/Plan: 51-year-old gentleman with progressive restrictive ventilatory defect due to interstitial lung disease after inhalational injury admitted with abnormal mental status in the setting of poly-opiate administration. VQ scan was low probability. Respiratory status and mental status are improved. Recommendations: DC Solu-Medrol begin oral prednisone taper FiO2 his saturations allow
[2016-08-06 08:00] VITALS: BP 130/60
[2016-08-06 08:28] LABS: ABSOLUTE EOSINOPHIL COUNT 0 /CUMM (0.0-0.7); ABSOLUTE GRANULOCYTE CT 13.3 /CUMM (1.4-6.5); ABSOLUTE MONOCYTE COUNT 0.6 /CUMM (0.10-0.60)
[2016-08-06 08:35] LABS: ABSOLUTE BASOPHIL COUNT 0 /CUMM (0.0-0.2); BASOPHIL % 0.1 % (0.0-2.0); EOSINOPHIL % 0.1 % (0-5); HEMATOCRIT 25.3 % (42-52); MEAN CORPUSCULAR HGB 25.3 PG (27.0-31.0); MEAN CORPUSCULAR HGB CONC 32.5 G/DL (33.0-37.0); MEAN CORPUSCULAR VOLUME 77.8 FL (80.0-94.0); MEAN PLATELET VOLUME 6.3 FL (7.4-10.4); PLATELET COUNT 480 /CUMM (130-400); RBC DISTRIBUTION WIDTH 20.7 % (11.5-14.5); RED BLOOD CELL CT 3.25 /CUMM (4.70-6.10); WHITE BLOOD CELL COUNT 15.9 /CUMM (4.8-10.8)
--- NOTE | 2016-08-06 09:11 | Discharge Summary ---
Visit Information Visit Dates Admission Date: 08/05/16 Discharge Date: 08/07/16 Hospital Course Course Attending Physician: KHLOE GILL MD Primary Care Physician: YULI FRAZIER MD Hospital Course: Mr. 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 Labs and admission WBC 17.0, hemoglobin 9.3, abdomen 20.4, platelets 547, sodium 135, potassium 4.1, BUN 36, creatinine 1.8. Chest x-ray on admission showed diffuse interstitial prominence favoring underlying chronic lung disease. No definite consolidation Head CT showed limited evaluation due to patient motion artifact. No acute findings. Hospital course 1. Altered mental status: Polypharmacy along with a component of dehydration in the setting of diuretics. Patient was admitted to telemetry floor. His mentation improved on the next day to admission. Since no focal neurological deficit and patient was awake on day 2 of admission, there was no plan for neurology consult. His PO medications were initially held and restarted once patient was awake and alert. He did have one episode of unresponsiveness and responded to Narcan. His pain medications were adjusted after discussion with the patient. Patient was discharged on 30 mg of OxyContin twice a day and 10 mg every 6 oxycodone as needed for breakthrough pain. ( Patient was taking 60 mg OxyContin and 20 mg of oxycodone twice a day prior to admission). Recommended to follow up with PCP. 2. Persistent tachycardia: Concern for PE with interstitial lung disease/ nephrotic range proteinuria. VQ scan was obtained which was low probability for PE. 3. Leukocytosis: Which is attributed to chronic prednisone use. He received 1 dose of antibiotics in the emergency department. Blood cutures and urine cultures showed no growth. 4. Acute hypoxemic respiratory failure secondary to COPD exacerbation along with history of progressive worsening pulmonary fibrosis ( patient has reactive adenopathy without malignancy confirmed on bronchoscopy and mediastinoscopy done in July 2015 ) he was continued on by mouth steroids as home dose. Pulm consult was obtainied who suggested V/Q scan which was low probability for PE 5. Heart failure preserved ejection fraction: Lasix was initially held due to a DEE. Daily weights and strict I's and O's were monitored. Troponins 3 were negative with no EKG changes. Was seen by food service assistant who recommended to follow up with heart failure clinic. Follows Dr. Willingham. TTE was done which was unchanged form previous Echo 6. Acute kidney injury mostly prerenal in the setting of over diuresis: Patient was started on gentle hydration with close monitoring for fluid overload. Creatinine remained unchanged. He should follow-up with heart failure clinic for closer monitoring of creatinine and diuretic therapy 7. Chronic pain: Plan as mentioned above 8. Distal symmetric sensory neuropathy: Was continued on amitriptyline and gabapentin 9. Progressive worsening pulmonary fibrosis: Steroid dependent Full CODE STATUS DVT prophylaxis with subcutaneous heparin Allergies: Coded Allergies: Iodinated Contrast Media - Oral and (IODINATED CONTRAST MEDIA - IV DYE) (RED RASH TOLERATES WITH BENADRYL 01/12/16) Significant Procedures: Laboratory Tests 08/07 0610 Chemistry Sodium (137 - 145 mmol/L) 134 L Potassium (3.5 - 5.1 mmol/L) 4.1 Chloride (98 - 107 mmol/L) 101 Carbon Dioxide (22 - 30 mmol/L) 28 Anion Gap (5 - 16) 5 BUN (9 - 20 mg/dL) 58 H Creatinine (0.7 - 1.2 mg/dL) 1.4 H Estimated GFR (>60 ml/min) 54 L BUN/Creatinine Ratio (7 - 25 %) 41.4 H Disposition Summary Disposition Principal Diagnosis: 1. Altered mental status 2. Leukocytosis with no evidence of infection 3. Acute hypoxemic respiratory failure secondary to COPD exacerbation along with history of progressive worsening pulmonary fibrosis 4. Heart failure preserved ejection fraction 5. DEE Additional Diagnosis: 1. Chronic pain: 2. Distal symmetric sensory neuropathy 3. Progressive worsening pulmonary fibrosis Discharge Disposition: home health services Discharge Instructions General Discharge Information Code Status: Full Code Patient's Diet: Heart healthy diet Patient's Activity: As tolerated Follow-Up Instructions/Appts: 1. Follow up with PCP in a week upondischarge 2. Pain medication dosage and frequency was changed. Please try to see if this helps pain. 3. Follow up with CHF clinic once a week 4. Follow up with Dr. Willingham in a week upon discharge for outpatient holter. 5. Stop Metalozone and continue on lasix Medications at Discharge Discharge Medications: Stop taking the following medications: Oxycodone HCl (Oxycodone HCl) 30 MG TABLET ORAL TWICE DAILY Oxycodone HCl (Oxycontin) 60 MG TAB.ER.12H ORAL TWICE DAILY [CANNABIS] as needed for UNKNOWN Metolazone (Metolazone) 2.5 MG TABLET ORAL DAILY as needed for UNKNOWN Qty = 8 Continue taking these medications: Risedronate Sodium (Actonel) 35 MG TABLET 1 Tablet ORAL EVERY TUESDAY Qty = 4 Albuterol Sulfate (Albuterol Sulfate Hfa) 90 MCG HFA.AER.AD 2 PUFF Inhale through mouth EVERY 4-6 HOURS NEEDED as needed for SHORTNESS OF BREATH Qty = 1 Instructions: 90 MCG PER PUFF Gabapentin (Gabapentin) 800 MG TABLET 1 Tablet ORAL 4 TIMES A DAY Qty = 120 Comments: Last Taken:07/09/14 Time: 8:47 AM Amitriptyline Hydrochloride (Amitriptyline HCl) 150 MG TAB 1 Tablet ORAL DAILY Qty = 30 Comments: Last Taken:07/08/14 Time:9:45 PM Aspirin (Children's Aspirin) 81 MG TAB.CHEW 1 Tablet ORAL DAILY Days = 60 Comments: Last Taken: 07/09/14 Time:8:47 AM Baclofen (Baclofen) 10 MG TABLET 1 Tablet ORAL THREE TIMES DAILY Comments: Last Taken: 08/07/16 Time:08:41A.M Losartan Potassium (Cozaar) 50 MG TABLET 1 Tablet ORAL DAILY Comments: Last Taken:NOT GIVEN THIS ADMISSION Time: Furosemide (Furosemide) 40 MG TABLET 2 Tablet ORAL DAILY Qty = 90 Comments: Last Taken:NOT GIVEN IN HOSPITAL Time: Fluticasone-Salmeterol (Advair 100-50 Diskus) 100 MCG-50 MCG/DOSE BLST.W.DEV 1 Puff Inhale through mouth TWICE DAILY Qty = 180 Comments: Last Taken:NOT GIVEN THIS ADMISSION Time: Prednisone (Prednisone) 10 MG TABLET 1 Tablet ORAL DAILY Days = 30 Instructions: AFTER FINISHING PREDNISONE TAPER. Comments: Last Taken: 08/07/16 Time:8:41A.M This prescription has been renewed Start taking the following new medications: Prednisone (Prednisone) 10 MG TABLET 0 ORAL DAILY Days = 30 No Refills Instructions: On Take 08/06-08/07 40MG 08/08-08/09 30 MG 08/10-08/11 20MG 08/12 10 MG AND CONTINUE DAILY AT THE SAME DOSE Comments: Last Taken:08/07/16 Time:8:41A.M Oxycodone HCl (Oxycontin) 30 MG TAB.ER.12H 1 Tablet ORAL TWICE DAILY Qty = 15 No Refills Oxycodone HCl (Oxycodone HCl) 10 MG TABLET 1 Tablet ORAL EVERY SIX HOURS Days = 30 No Refills Comments: Last Taken:08/07/16 Time:3:52A.M Copies To: FREDDIE HULL,YULI Canela
[2016-08-06 09:32] LABS: GRANULOCYTE % 83.8 % (42.2-75.2)
[2016-08-06] MEDS ORDERED: PREDNISONE10 M2 PO ×2 (09:38→09:43)
[2016-08-06] MEDS ORDERED: OXYCODONE HCL10 M2 PO (09:39)
--- NOTE | 2016-08-06 09:44 | Patient Discharge Instructions ---
Discharge Instructions General Discharge Information You were seen/treated for: Altered mental staus. Special Instructions: 1. Follow up with PCP in a week upondischarge 2. Pain medication dosage and frequency was changed. Please try to see if this helps pain. 3. Follow up with CHF clinic once a week 4. Follow up with Dr. Willingham in a week upon discharge for outpatient holter. 5. Stop Metalozone and continue on lasix Diet Recommended Diet: Heart Healthy Activity Full Activity/No Limits: Yes Acute Coronary Syndrome Inclusion Criteria At DC or during hospital stay patient has or had the following: ACS DIAGNOSIS No Discharge Core Measures Meds if any: Prescribed or Continued at Discharge Meds if any: NOT Prescribed or Continued at Discharge Congestive Heart Failure Inclusion Criteria At DC or during hospital stay patient has or had the following: CHF DIAGNOSIS No Discharge Core Measures Meds if any: Prescribed or Continued at Discharge Meds if any: NOT Prescribed or Continued at Discharge Cerebrovascular accident Inclusion Criteria At DC or during hospital stay patient has or had the following: CVA/TIA Diagnosis No Discharge Core Measures Meds if any: Prescribed or Continued at Discharge Meds if any: NOT Prescribed or Continued at Discharge Venous thromboembolism Inclusion Criteria VTE Diagnosis No VTE Type NONE VTE Confirmed by (Test) NONE Discharge Core Measures - Per Current guidelines, there needs to be overlap - treatment for the first 5 days of Warfarin therapy. - If discharged on Warfarin prior to 5 days of - overlap therapy, the patient will need to be - assessed for post discharge needs including - *Post discharge parental anticoagulation - *Warfarin and/or parental anticoagulation education - *Follow up date to check INR post discharge At least 5 days overlap therapy as Inpatient No Meds if any: Prescribed or Continued at Discharge Note: Overlap Therapy is Warfarin and Anticoagulant Meds if any: NOT Prescribed or Continued at Discharge
[2016-08-06] MEDS ORDERED: OXYCONTIN30 M1 PO (10:20)
--- NOTE | 2016-08-06 12:39 | PN- Cardiology ---
Subjective Subjective: Clinically, much more alert and doing well today. He denies any symptoms. Anxious to go home. Objective Vital Signs and I&Os Vital Signs Date Time Temp Pulse Resp B/P Pulse O2 O2 Flow FiO2 Ox Delivery Rate 08/06 0800 94 Nasal 2.0L Cannula 08/06 0800 97.8 90 22 130/60 97 Nasal 2.0L Cannula 08/06 0744 96 Nasal 2.0L Cannula 08/06 0022 101 92 08/06 0000 CPAP 08/05 2200 97.7 100 20 130/60 95 CPAP 08/05 2058 Nasal 2.5L Cannula 08/05 1723 97 Nasal 2.5L Cannula 08/05 1707 97.5 92 18 140/86 94 Nasal 2.0L Cannula 08/05 1636 97.0 98 15 134/79 99 Nasal 2.0L Cannula 08/05 1433 97 20 117/67 99 Nasal 2.0L Cannula 08/05 1301 96.3 102 18 126/75 98 Nasal 2.0L Cannula Intake & Output 08/06 1600 08/06 0800 08/06 0000 08/05 1600 08/05 0800 08/05 0000 Intake Total 200 200 0 Output Total 450 Balance 200 200 -450 Intake, Oral 200 200 0 Number 1 Bowel Movements Output, Urine 450 Patient 220 lb 220 lb Weight Current Medications: Current Medications Sig/Silvana Start time Last Medication Dose Route Stop Time Status Admin Acetaminophen 650 MG Q6P PRN 08/05 0645 AC PO Albuterol Sulfate 3 ML TID 08/05 2200 AC 08/06 INH 0741 Albuterol Sulfate 3 ML Q6P PRN 08/05 0645 AC INH Amitriptyline HCl 150 MG DAILY 08/05 1000 AC 08/06 PO 0929 Aspirin 81 MG DAILY 08/05 1000 AC 08/06 PO 0929 Baclofen 10 MG TID 08/05 1000 AC 08/06 PO 0929 Budesonide/ 2 PUF BID 08/05 1000 AC 08/05 Formoterol Fumarate INH 2237 Gabapentin 600 MG Q8 08/05 1400 AC 08/06 PO 0600 Heparin Sodium 5,000 UNIT Q8 08/05 0636 AC 08/06 (Porcine) SC 0600 Ipratropium [place] 2.5 ML TID 08/05 2200 AC 08/06 INH 0741 Methylprednisolone 40 MG Q12 08/06 1000 DC 08/06 IV 0931 Methylprednisolone 40 MG Q8 08/05 1400 DC 08/06 IV 0629 Naloxone HCl 0.4 MG ONCE ONE 08/05 1615 DC 08/05 IV 08/05 1616 1615 Naloxone HCl 0 .STK-MED ONE 08/05 1600 DC .ROUTE Oxycodone HCl 30 MG ONCE ONE 08/05 2315 DC 08/05 PO 08/05 2316 2320 Oxycodone HCl 5 MG Q6 PRN 08/05 1630 AC 08/06 PO 0929 Oxycodone HCl 30 MG Q12 08/05 1000 DC 08/05 PO 1134 Sodium Chloride 1,000 ML ONCE ONE 08/05 0415 DC 08/05 IV 08/06 0014 0429 Results Last 48 Hrs of Labs/Mics: Laboratory Tests 08/06/16 0610: Anion Gap 4 L, Estimated GFR 59 L, BUN/Creatinine Ratio 37.7 H, CBC w Diff NO MAN DIFF REQ, RBC 3.25 L, MCV 77.8 L, MCH 25.3 L, RDW 20.7 H, MPV 6.3 L, Gran % 83.8 H, Lymphocytes % 12.3 L, Monocytes % 3.7, Eosinophils % 0.1, Basophils % 0.1, Absolute Granulocytes 13.3 H, Absolute Lymphocytes 2.0, Absolute Monocytes 0.6, Absolute Eosinophils 0, Absolute Basophils 0, PUBS MCHC 32.5 L 08/05/16 1750: Troponin I 0.02 08/05/16 1135: Urine Opiates Screen 287.00, Methadone Screen 69, Barbiturate Screen < 60, Ur Phencyclidine Scrn < 6.00, Amphetamines Screen < 100, U Benzodiazepines Scrn < 85, Urine Cocaine Screen < 50, Urine Cannabis Screen 71.70 H, Urinalysis LIGHT H, Urine Color YEL, Urine Clarity CLEAR, Urine pH 6.5, Ur Specific [place] 1.020 , Urine Protein 100 H, Urine Ketones NEG, Urine Nitrite NEG, Urine Bilirubin NEG, Urine Urobilinogen 0.2, Ur Leukocyte Esterase NEG, Ur Microscopic SEDIMENT EXAMINED, Urine RBC 25-50 H, Urine WBC 10-15 H, Ur Epithelial Cells RARE, Hyaline Casts 15-25 H, Granular Casts RARE H, Urine Mucus FEW, Urine Hemoglobin MOD H, Urine Glucose NEG 08/05/16 0837: Anion Gap 5, Estimated GFR 59 L, BUN/Creatinine Ratio 26.9 H, Troponin I 0.02 08/05/16 0010: pH 7.40, pCO2 40, pO2 52 L, HCO3 24, ABG O2 Sat (Measured) 86.0 L, P-50 (Temp Corrected) Y, Carboxyhemoglobin 1.6, O2 Concentration % RA, Temperature 98.0, Phlebotomy Draw Site LEFT RADIAL 08/04/16 2356: Anion Gap 4 L, Estimated GFR 40 L, BUN/Creatinine Ratio 20.0, Glucose 80, Calcium 8.4, Total Bilirubin 0.2, AST 31, ALT 24, Alkaline Phosphatase 214 H, Troponin I 0.02, Total Protein 5.8 L, Albumin 2.1 L, Globulin 3.7, Albumin/ Globulin Ratio 0.6 L, CBC w Diff MAN DIFF ORDERED, RBC 3.67 L, MCV 77.5 L, MCH 25.4 L, RDW 20.5 H, MPV 5.8 L, Gran % 59.9, Lymphocytes % 25.5, Monocytes % 6.9, Eosinophils % 6.7 H, Basophils % 1.0, Absolute Granulocytes 10.2 H, Absolute Lymphocytes 4.3 H, Absolute Monocytes 1.2 H, Absolute Eosinophils 1.1 , Absolute Basophils 0.2, Platelet Estimate ADEQUATE, Hypochromic-Microcytic 1+, Poikilocytosis 1+, Stomatocytes 1+, PUBS MCHC 32.8 L, Serum Alcohol < 10.0 Assessment/Plan Assessment/Plan Assessment: 1. Worsening dyspnea likley related to exacerbation of underlying ILD / COPD 2. Mental status changes with increased lethargy, likely multifactorial 3. Acute renal insufficiency - likely related to diuretics, poor po intake, etc 4. Pulmonary HTN with chronic cor pulmonale. 5. Venous insufficiency with edema and stasis changes. 6. Microcytic anemia 7. Hypoalbuminemia likely related to Nephrotic syndrome, poor nutritional status etc Recommendations: -The patient is doing much better today. -Situation discussed with attending and house staff. The patient is to be discharged today, I would make sure that the patient continues his Lasix and her other regular medicines. However, he should not take metolazone. -Follow-up with CHF clinic Tuesday or Tuesday for repeat blood work and further evaluation -Nephrology follow-up as outpatient -The patient to see me in the office within one to 2 weeks. Continue telemetry? No
[2016-08-06 18:20] VITALS: BP 150/86
--- NOTE | 2016-08-06 19:38 | ECHOCARDIOGRAM REPORT ---
TORSTEN CHAUDHARI Age: 51 : 1965 Gender: M Exam Date: 08/06/2016 13:51 Exam Location: [facility] Ht (in): 70 Wt (lb): 180 BSA: 2.02 BP: 130 / 60 Ordering Physician: RITA MINER MD Referring Physician: RITA MINER MD Technologist: Edin Gonzales [facility] Room Number: 173-01 Indications: EVALUATION OF LV FUNCTION Rhythm: Technical Quality: FINDINGS Left Ventricle Normal global left ventricular size, wall thickness, systolic function with no obvious regional wall motion abnormalities. Normal left ventricular ejection fraction estimated at 60-65%. Right Ventricle Mild right ventricular dilatation. Right Atrium Mild right atrial dilatation. Left Atrium Mild to moderate left atrial dilatation. Mitral Valve Mitral valve thickened. Trace mitral regurgitation. Aortic Valve Trileaflet aortic valve. Focal thickening of the aortic valve cusps. No aortic stenosis. No aortic regurgitation. Tricuspid Valve Tricuspid valve not well visualized, grossly normal. Mild tricuspid regurgitation. Pulmonic Valve Pulmonic valve not well visualized, grossly normal. Pericardium No pericardial effusion. Great Vessels Aortic root and proximal ascending aorta not well visualized, grossly normal. CONCLUSIONS 1. Minimal aortic sclerosis is present with no valvular stenosis or insufficiency. 2. Mitral leaflet thickening is present with mild anular calcification and mild to moderate left atrial enlargement. 3. There is no significznt pericardial fluid present. 4. The left ventricular chamber size and systolic function are normal. 5. Mild enlargement of the right heart chambers is present with enlargement of the IVC, mild tricuspid insufficiency and an estimated RV systolic pressure of 32 mmHg Carson Willingham M.D. (Electronically Signed) Final Date: 06 August 2016 19:37 MEASUREMENTS (Male / Female) Normal Values 2D ECHO LV Diastolic Diameter PLAX 4.7 cm 4.2 - 5.9 / 3.9 - 5.3 cm LV Systolic Diameter PLAX 2.9 cm 2.1 - 4.0 cm LV Fractional Shortening PLAX 38.3 % 25 - 46 % LV Ejection Fraction 2D Teich 68.5 % IVS Diastolic Thickness 0.9 cm LVPW Diastolic Thickness 1.0 cm LV Relative Wall Thickness 0.4 LVOT Diameter 2.0 cm Aortic Root Diameter 3.0 cm LA Systolic Diameter LX 3.8 cm 3.0 - 4.0 / 2.7 - 3.8 cm LV Ejection Fraction MOD BP 71.4 % >= 55 % LV Diastolic Length 4C 8.9 cm 6.9 - 10.3 cm LV Diastolic Area 4C 37.6 cm LV Diastolic Volume MOD 4C 131.0 cm LV Ejection Fraction MOD 4C 72.5 % LV Stroke Volume MOD 4C 95.0 cm LV Systolic Length 4C 6.9 cm LV Systolic Area 4C 17.1 cm LV Systolic Volume MOD 4C 36.0 cm LV Ejection Fraction MOD 2C 71.1 % LV Diastolic Volume 4C AL 135.0 cm 85 - 139 / 69 - 109 cm LV Systolic Volume 4C AL 36.2 cm LV Ejection Fraction 4C AL 73.2 % LV Stroke Volume 4C AL 98.8 cm LV Ejection Fraction 2C AL 72.3 % LA Volume 72.0 cm 18 - 58 / 22 - 52 cm Ascending Aorta Diameter 2.8 cm DOPPLER AV Peak Velocity 169.0 cm/s AV Peak Gradient 11.4 mmHg AV Mean Velocity 120.0 cm/s AV Mean Gradient 6.0 mmHg AV Velocity Time Integral 32.9 cm LVOT Peak Velocity 135.0 cm/s LVOT Peak Gradient 7.3 mmHg LVOT Mean Velocity 74.6 cm/s LVOT Mean Gradient 3.0 mmHg LVOT Velocity Time Integral 24.4 cm LVOT Stroke Volume 76.7 cm AV Area Cont Eq vti 2.3 cm AV Area Cont Eq pk 2.5 cm TR Peak Velocity 259.0 cm/s TR Peak Gradient 26.8 mmHg
[2016-08-06 23:01] VITALS: BP 160/84
[2016-08-07 07:30] VITALS: BP 150/80
--- NOTE | 2016-08-07 08:49 | PN- Pulmonary ---
Subjective HPI/Critical Care Issues: Patient's feels well shortness of breath improved Objective Current Medications: Current Medications Sig/Silvana Start time Last Medication Dose Route Stop Time Status Admin Acetaminophen 650 MG .STK-MED ONE 08/06 1238 DC PO 08/06 1239 Acetaminophen 650 MG Q6P PRN 08/05 0645 AC 08/06 PO 1242 Albuterol Sulfate 3 ML TID 08/05 2200 AC 08/07 INH 0756 Albuterol Sulfate 3 ML Q6P PRN 08/05 0645 AC INH Amitriptyline HCl 150 MG DAILY 08/05 1000 AC 08/07 PO 0840 Aspirin 81 MG DAILY 08/05 1000 AC 08/07 PO 0841 Baclofen 10 MG TID 08/05 1000 AC 08/07 PO 0841 Budesonide/ 2 PUF BID 08/05 1000 AC 08/07 Formoterol Fumarate INH 0842 Gabapentin 600 MG Q8 08/05 1400 AC 08/07 PO 0546 Heparin Sodium 5,000 UNIT Q8 08/05 0636 AC 08/07 (Porcine) SC 0546 Ipratropium [place] 2.5 ML TID 08/05 2200 AC 08/07 INH 0756 Methylprednisolone 40 MG Q12 08/06 1000 DC 08/06 IV 0931 Methylprednisolone 40 MG Q8 08/05 1400 DC 08/06 IV 0629 Oxycodone HCl 30 MG Q12 08/06 2200 AC 08/07 PO 0842 Oxycodone HCl 10 MG Q6P PRN 08/06 1423 AC 08/07 PO 0352 Oxycodone HCl 5 MG Q6 PRN 08/05 1630 DC 08/06 PO 0929 Prednisone 40 MG DAILY 08/07 1000 AC 08/07 PO 0841 Vital Signs & I&O Last 24 Hrs of Vitals and I&O: Vital Signs Date Time Temp Pulse Resp B/P Pulse O2 O2 Flow FiO2 Ox Delivery Rate 08/07 0759 96 Nasal 2.0L Cannula 08/07 0730 97.8 83 20 150/80 98 Nasal 2.0L Cannula 08/07 0010 98 94 08/07 0000 CPAP 08/06 2301 97.9 84 18 160/84 100 Nasal Cannula 08/06 2239 94 08/06 1835 97 Nasal 2.0L Cannula 08/06 1820 97.7 88 18 150/86 99 08/06 1600 96 Nasal 2.5L Cannula Intake & Output 08/07 1600 08/07 0800 08/07 0000 Intake Total 240 310 Output Total 850 Balance -610 310 Intake, IV 10 Intake, Oral 240 300 Output, Urine 850 Impression/Plan Impression/Plan Impression/Plan: 51-year-old gentleman with progressive restrictive ventilatory defect due to interstitial lung disease after inhalational injury admitted with abnormal mental status in the setting of poly-opiate administration. VQ scan was low probability. Respiratory status and mental status are improved. Recommendations: DC Solu-Medrol begin oral prednisone taper FiO2 his saturations allow. Follow- up with Dr. Mckoy as outpatient
--- NOTE | 2016-08-07 09:24 | PN- Housestaff ---
See Addendum Subjective Follow-up For: -AMS improved -COPD exacerbation -DEE Complaints: no complaints Tele-Events Since Last Visit: Sinus rhythm, first-degree heart block, heart rate 82-89, IA interval 0.24 Subjective: Patient seen and examined, lying in the bed comfortable with no acute distress He reports improvement in his breathing with some dry cough. He denies fever, chills, chest pain, palpitation, and there is no change in urinary or bowel habits. Patient reports that he has good urine output, and he had 2 bowel movements brown in color with no blood. He reports that he was referred by his oncologist Dr. Lopes to GI specialist to have endoscopy and colonoscopy next month. He feels that he is back to his baseline, and he would like to be discharged today before 11:30 am Review of Systems Constitutional: Reports: no symptoms. EENTM: Reports: no symptoms. Cardiovascular: Reports: no symptoms. Respiratory: Reports: no symptoms. Gastrointestinal: Reports: no symptoms. Genitourinary: Reports: no symptoms. Skin: Reports: no symptoms. Neurological/Psychological: Reports: no symptoms. Objective Last 24 Hrs of Vital Signs/I&O Vital Signs Date Time Temp Pulse Resp B/P Pulse O2 O2 Flow FiO2 Ox Delivery Rate 08/07 0800 95 Nasal 3.0L Cannula 08/07 0759 96 Nasal 2.0L Cannula 08/07 0730 97.8 83 20 150/80 98 Nasal 2.0L Cannula 08/07 0010 98 94 08/07 0000 CPAP 08/06 2301 97.9 84 18 160/84 100 Nasal Cannula 08/06 2239 94 08/06 1835 97 Nasal 2.0L Cannula 08/06 1820 97.7 88 18 150/86 99 08/06 1600 96 Nasal 2.5L Cannula Intake & Output 08/07 1600 08/07 0800 08/07 0000 Intake Total 240 310 Output Total 850 Balance -610 310 Intake, IV 10 Intake, Oral 240 300 Output, Urine 850 Physical Exam General Appearance: Alert, Oriented X3, Cooperative, No Acute Distress Skin: No Rashes, No Breakdown, No Significant Lesion HEENT: Atraumatic, PERRLA, EOMI, Mucous Membr. moist/pink Neck: Supple, No JVD Cardiovascular: Regular Rate, Normal S1, Normal S2, No Murmurs Lungs: Clear to Auscultation, Normal Air Movement Abdomen: Normal Bowel Sounds, Soft, No Tenderness Extremities: No Edema, Normal Pulses Vascular: Normal Pulses, Pulses Symmetrical Current Medications: Current Medications Sig/Silvana Start time Last Medication Dose Route Stop Time Status Admin Acetaminophen 650 MG .STK-MED ONE 08/06 1238 DC PO 08/06 1239 Acetaminophen 650 MG Q6P PRN 08/05 0645 AC 08/06 PO 1242 Albuterol Sulfate 3 ML TID 08/05 2200 AC 08/07 INH 0756 Albuterol Sulfate 3 ML Q6P PRN 08/05 0645 AC INH Amitriptyline HCl 150 MG DAILY 08/05 1000 AC 08/07 PO 0840 Aspirin 81 MG DAILY 08/05 1000 AC 08/07 PO 0841 Baclofen 10 MG TID 08/05 1000 AC 08/07 PO 0841 Budesonide/ 2 PUF BID 08/05 1000 AC 08/07 Formoterol Fumarate INH 0842 Gabapentin 600 MG Q8 08/05 1400 AC 08/07 PO 0546 Heparin Sodium 5,000 UNIT Q8 08/05 0636 AC 08/07 (Porcine) SC 0546 Ipratropium [place] 2.5 ML TID 08/05 2200 AC 08/07 INH 0756 Methylprednisolone 40 MG Q12 08/06 1000 DC 08/06 IV 0931 Methylprednisolone 40 MG Q8 08/05 1400 DC 08/06 IV 0629 Oxycodone HCl 30 MG Q12 08/06 2200 AC 08/07 PO 0842 Oxycodone HCl 10 MG Q6P PRN 08/06 1423 AC 08/07 PO 0352 Oxycodone HCl 5 MG Q6 PRN 08/05 1630 DC 08/06 PO 0929 Prednisone 40 MG DAILY 08/07 1000 AC 08/07 PO 0841 Last 24 Hrs of Lab/Alonso Results Last 24 Hrs of Labs/Mics: Laboratory Tests 08/07/16 0610: Anion Gap 5, Estimated GFR 54 L, BUN/Creatinine Ratio 41.4 H Assessment/Plan Assessment: Mr. Monge is a 50 y/o M with PMHx of COPD on 2.5 L of oxygen, HFpEF, HTN, critical illness neuropathy, HLD and anemia who presents with altered mental status x 1 day He is awake alert and oriented 3. Able to answer questions appropriately. No acute distress 1. Altered mental status secondary to polypharmacy/ dehaydration: Resolved - Long acting pain medications was adjusted yesterday, it was reduced to 30 twice a day and short acting changed from twice a day to every 6. patient in agreement. 2. Acute hypoxemic respiratory failure secondary to COPD exacerbation along with history of progressive worsening pulmonary fibrosis ( patient has reactive adenopathy without malignancy confirmed on bronchoscopy and mediastinoscopy done in July 2015 ) . - VQ scan low probability for PE - currently on prednisone taper -He is on chronic O2 at home. 3. Persistent tachycardia with heart rate in 100s overnight. Resolved -Over night his heart rate is 82-89 with no events - No evidence of dehydration - PE ruled out - Not on rate controlling medications - Per patient he is plan for a cardiac cath next month by his dressed poultry grader. Will need a Holter monitor as an outpatient 3. Leucocytosis: Chronic on prednisone. - Labs/urine culture is pending -Blood culture shows no growth waiting for the final results -Continue to watch off antibiotics 4. Heart failure presented ejection fraction: - echo done in 2015 showed a normal ejection fraction with RVSP in 40s. -We'll discharge the patient on 80 mg Lasix by mouth daily per Dr. Willingham recommendation -We'll continue to hold metolazone on discharge 5. DEE mostly prerenal in the setting off over diuresis: -Today creatinine is 1.4 - Renal biopsy done on 01/27/17 showed mild to moderate arterial and arteriolononephrosclerosis. Changes suggestive of early diabetic nephropathy. - Patient doesn't have history of diabetes but has significant proteinuria. Follows Dr. Aguilar 6. Microcytic anemia: * Patient denies hematuria, black stool, hematemesis, no bleeding issue * There is dropping in his H & H today it's 82/25.3 yesterday it was 9.3/28.4. He had an appointment with rock wool applicator next month for endoscopy and colonoscopy, also followed by Dr. Lopes heme/onc 6 chronic pain: -Pain medication adjusted as mentioned above 7.Distal symmetric sensory neuropathy: - Continue amitriptyline at his home dose and gabapentin 8. progressive worsening of pulmonary fibrosis : - steroid dependent. Was followed by the [facility] lung transplant program FUll code status DVT ppx on SC heparin Problem List: 1. CHF (congestive heart failure) 2. Neuropathy 3. COPD (chronic obstructive pulmonary disease) Pain Ratin Pain Location: - Pain Goal: Pain 4 or less Pain Plan: please see cmr Tomorrow's Labs & Rationales: - DVT/Prophylaxis: pharmacological
--- NOTE | 2016-08-07 11:54 | PN- Cardiology ---
Subjective Subjective: The patient appears to be doing about the same today. He is anxious to be discharged. No new cardiac issues or symptoms. Echocardiogram yesterday showedan acute change from previously with a normal ejection fraction. Objective Vital Signs and I&Os Vital Signs Date Time Temp Pulse Resp B/P Pulse O2 O2 Flow FiO2 Ox Delivery Rate 08/07 0800 95 Nasal 3.0L Cannula 08/07 0759 96 Nasal 2.0L Cannula 08/07 0730 97.8 83 20 150/80 98 Nasal 2.0L Cannula 08/07 0010 98 94 08/07 0000 CPAP 08/06 2301 97.9 84 18 160/84 100 Nasal Cannula 08/06 2239 94 08/06 1835 97 Nasal 2.0L Cannula 08/06 1820 97.7 88 18 150/86 99 08/06 1600 96 Nasal 2.5L Cannula Intake & Output 08/07 1600 08/07 0800 08/07 0000 08/06 1600 08/06 0800 08/06 0000 Intake Total 360 240 310 700 200 200 Output Total 525 850 Balance -165 -610 310 700 200 200 Intake, IV 10 200 Intake, Oral 360 240 300 500 200 200 Output, Urine 525 850 Physical Exam: General Appearance Awake and alert post narcan HEENT PERRLA, Dry Mucous Membranes, Oropharynx Clear Without Erythema or Exudates Neck No JVD, carotid normal bilaterally Cardiovascular Regular Rate, Normal S1, Normal S2, No Murmurs, Gallops, Rubs Lungs Coarse Breath Sounds on Bilateral Anterior Lung [place] Abdomen Soft, No Tenderness, Positive Bowel Sounds Extremities No Cyanosis, Clubbing on Bilateral Fingers,1-2+ Pitting Edema and Chronic Venous Stasis Changes on Bilateral Lower Extremities Current Medications: Current Medications Sig/Silvana Start time Last Medication Dose Route Stop Time Status Admin Acetaminophen 650 MG .STK-MED ONE 08/06 1238 DC PO 08/06 1239 Acetaminophen 650 MG Q6P PRN 08/05 0645 AC 08/06 PO 1242 Albuterol Sulfate 3 ML TID 08/05 2200 AC 08/07 INH 0756 Albuterol Sulfate 3 ML Q6P PRN 08/05 0645 AC INH Amitriptyline HCl 150 MG DAILY 08/05 1000 AC 08/07 PO 0840 Aspirin 81 MG DAILY 08/05 1000 AC 08/07 PO 0841 Baclofen 10 MG TID 08/05 1000 AC 08/07 PO 0841 Budesonide/ 2 PUF BID 08/05 1000 AC 08/07 Formoterol Fumarate INH 0842 Gabapentin 600 MG Q8 08/05 1400 AC 08/07 PO 0546 Heparin Sodium 5,000 UNIT Q8 08/05 0636 AC 08/07 (Porcine) SC 0546 Ipratropium [place] 2.5 ML TID 08/05 2200 AC 08/07 INH 0756 Oxycodone HCl 30 MG Q12 08/06 2200 AC 08/07 PO 0842 Oxycodone HCl 10 MG Q6P PRN 08/06 1423 AC 08/07 PO 0352 Oxycodone HCl 5 MG Q6 PRN 08/05 1630 DC 08/06 PO 0929 Prednisone 40 MG DAILY 08/07 1000 AC 08/07 PO 0841 Results Last 48 Hrs of Labs/Mics: Laboratory Tests 08/07/16 0610: Anion Gap 5, Estimated GFR 54 L, BUN/Creatinine Ratio 41.4 H 08/06/16 0610: Anion Gap 4 L, Estimated GFR 59 L, BUN/Creatinine Ratio 37.7 H, CBC w Diff NO MAN DIFF REQ, RBC 3.25 L, MCV 77.8 L, MCH 25.3 L, RDW 20.7 H, MPV 6.3 L, Gran % 83.8 H, Lymphocytes % 12.3 L, Monocytes % 3.7, Eosinophils % 0.1, Basophils % 0.1, Absolute Granulocytes 13.3 H, Absolute Lymphocytes 2.0, Absolute Monocytes 0.6, Absolute Eosinophils 0, Absolute Basophils 0, PUBS MCHC 32.5 L 08/05/16 1750: Troponin I 0.02 Assessment/Plan Assessment/Plan Assessment: 1. Worsening dyspnea likley related to exacerbation of underlying ILD / COPD 2. Mental status changes with increased lethargy, likely multifactorial 3. Acute renal insufficiency - likely related to diuretics, poor po intake, etc 4. Pulmonary HTN with chronic cor pulmonale. 5. Venous insufficiency with edema and stasis changes. 6. Microcytic anemia 7. Hypoalbuminemia likely related to Nephrotic syndrome, poor nutritional status etc Recommendations: -The patient is doing much better today. -Situation discussed with attending and house staff. The patient is to be discharged today, I would make sure that the patient continues his Lasix and her other regular medicines. However, he should not take metolazone. -Follow-up with CHF clinic Tuesday or Tuesday for repeat blood work and further evaluation -Nephrology follow-up as outpatient -The patient to see me in the office within one to 2 weeks. Continue telemetry? No
[2016-12-07] MEDS ORDERED: FOSAMAX70 M1 PO (15:53)
[2016-12-07] MEDS ORDERED: PREDNISONE10 M2 PO (15:53)
[2016-12-07] MEDS ORDERED: AMITRIPTYLINE150 M2 PO (15:54)
[2016-12-07] MEDS ORDERED: METOLAZONE (15:55)
[2016-12-07] MEDS ORDERED: OXYCONTIN40 M1 PO (15:56)
[2016-12-07] MEDS ORDERED: NEURONTIN800 M2 PO (15:56)
[2016-12-07] MEDS ORDERED: OXYCODONE HCL30 M1 PO (15:56)
[2016-12-07] MEDS ORDERED: FUROSEMIDE40 M1 PO (15:56)
== END 2016-08-07 11:34 | disposition home health service (06) | DRG 70 ==
LOC: CANRESERV → ENRESERVTM → ENRESERVDT → ERH 23:25 → 1NO 08-05 01:59 → ERHI 08-05 01:59 → 1NO 08-05 16:41
PROVIDERS: Internal Medicine; Pediatrics; ADMIT Internal Medicine
DX: G93.41 Metabolic encephalopathy (principal); J96.01 Acute respiratory failure with hypoxia; J44.1 Chronic obstructive pulmonary disease with (acute) exacerbation; I50.32 Chronic diastolic (congestive) heart failure; R41.82 Altered mental status, unspecified; T50.905A Adverse effect of unspecified drugs, medicaments and biological substances, initial encounter; Y92.009 Unspecified place in unspecified non-institutional (private) residence as the place of occurrence of the external cause; J68.9 Unspecified respiratory condition due to chemicals, gases, fumes and vapors; Z99.81 Dependence on supplemental oxygen; Z72.0 Tobacco use; I10 Essential (primary) hypertension; E78.5 Hyperlipidemia, unspecified; D64.9 Anemia, unspecified; G62.9 Polyneuropathy, unspecified
CPT/HCPCS: 1NP; 36415; 78582; 80307; 81001; 82436; 87040; 87086; 93005; 93010; 93306; 96374; 97110-GO; 97161-GP; A9540; A9558; G0480; J0456; J0696; J1644; J2310; J2920; J2930; J3490; J7060

== ENCOUNTER 2016-08-19 14:12 | Inpatient (IN) | payer OTHER ==
[~2016-08-19] VITALS: Ht 182.9 cm; Wt 84.4 kg
[~2016-08-19 14:12] MED LIST changes: +ADVAIR 100-501 EACH INH; +OXYCODONE HCL10 M2 PO; +OXYCONTIN30 M1 PO
--- NOTE | 2016-08-19 14:28 | NUR ---
RECEIVED 51 YO MALE BIBA FROM HOME. PT WAS FOUND UNRESPONSIVE BY FRIEND WHO CALLED [phone]. PT WAS GIVEN 2 MG NARCAN INTRANASALLY WITH NO EFFECT, THEN WAS GIVEN 2 MG NARCAN IV AND PT RESPONDED AND STARTED COMING ALERT. PT COMES IN TO ED GRUNTING, SHAKING PURPOSEFULLY, AND RESPONDING ONLY TO VERY SIMPLE COMMANDS. PT WAS FOUND WITH A PRESCRIPTION BOTTLE OF 30 MG OXYCODONES, 60 PRESCRIBED, 60 PILLS PRESENT IN BOTTLE
--- NOTE | 2016-08-19 14:32 | NUR ---
250ML OF NS INFUSED IN ROUTE.
--- NOTE | 2016-08-19 14:35 | ED AMS/SEIZURE/WEAK/DIZZY ---
History of Present Illness General Chief Complaint: ETOH/Drug Related Complaint Stated Complaint: FOUND UNRESPONSIVE, RESPONDED WITH NARCAN Source: EMS Exam Limitations: clinical condition Allergies Coded Allergies: Iodinated Contrast Media - Oral and (IODINATED CONTRAST MEDIA - IV DYE) (RED RASH TOLERATES WITH BENADRYL 01/12/16) Reconcile Medications Albuterol Sulfate (Albuterol Sulfate Hfa) 90 MCG HFA.AER.AD 2 PUFF INH Q4-6 PRN PRN SHORTNESS OF BREATH (Reported) 90 MCG PER PUFF Albuterol Sulfate 2.5 MG/3 ML (0.083 %) VIAL.NEB 1 Vial INH/[place] Q4-6H PRN COPD (Reported) Amitriptyline Hydrochloride (Amitriptyline HCl) 150 MG TAB 1 TAB PO DAILY NEUROPATHY (Reported) Aspirin (Ecotrin*) 81 MG TABLET.DR 1 TAB PO DAILY HEART/BLOOD (Reported) Baclofen 10 MG TABLET 1 TAB PO TID MUSCLE SPASMS (Reported) Fluticasone-Salmeterol (Advair 100-50 Diskus) 100 MCG-50 MCG/DOSE BLST.W.DEV 1 PUF INH BID COPD (Reported) Furosemide (Lasix) 40 MG TABLET 1 TAB PO BID DIURETIC (Reported) Gabapentin 800 MG TABLET 1 TAB PO 4 TIMES/DAY NEUROPATHY (Reported) Losartan Potassium (Cozaar) 50 MG TABLET 1 TAB PO DAILY BP (Reported) Metolazone 5 MG TABLET 1 TAB PO DAILY DIURETIC (Reported) Oxycodone HCl 30 MG TABLET 1 TAB PO BID PRN Sever pain (Reported) Oxycodone HCl (Oxycontin) 60 MG TAB.ER.12H 1 TAB PO BID PAIN (Reported) Prednisone 10 MG TABLET 1 TAB PO DAILY COPD /INTERSTITIAL LUNG DISEAS AFTER FINISHING PREDNISONE TAPER. Risedronate Sodium (Actonel) 35 MG TABLET 1 TAB PO QMON BONE (Reported) Triage Note: RECEIVED 51 YO MALE BIBA FROM HOME. PT WAS FOUND UNRESPONSIVE BY FRIEND WHO CALLED [phone]. PT WAS GIVEN 2 MG NARCAN INTRANASALLY WITH NO EFFECT, THEN WAS GIVEN 2 MG NARCAN IV AND PT RESPONDED AND STARTED COMING ALERT. PT COMES IN TO ED GRUNTING, SHAKING PURPOSEFULLY, AND RESPONDING ONLY TO VERY SIMPLE COMMANDS. PT WAS FOUND WITH A PRESCRIPTION BOTTLE OF 30 MG OXYCODONES, 60 PRESCRIBED, 60 PILLS PRESENT IN BOTTLE Triage Nurses Notes Reviewed? yes HPI: This patient is a 51-year-old male who presented to the emergency department today brought in by ambulance for evaluation of unresponsiveness. The patient was found by a friend unresponsive at his home. When EMS arrived the patient was still unresponsive. They reported they gave him intravenous and intranasal Narcan with affect after the intravenous Narcan. The patient is only able to follow simple commands and is unable to answer any questions. He is grunting currently the patient is noted to have a dressing over his abdomen. (JASON ATKINSON PA-C) Vital Signs & Intake/Output Vital Signs & Intake/Output Vital Signs Date Time Temp Pulse Resp B/P Pulse O2 O2 Flow FiO2 Ox Delivery Rate 08/20 1629 97.4 84 18 163/90 98 Nasal 2.0L Cannula 08/20 0814 98.4 83 18 146/70 98 Nasal 2.5L Cannula 08/20 0800 Nasal 2.0L Cannula 08/20 0552 112 94 08/20 0319 107 96 08/20 0039 100 97 08/20 0030 98 Nasal 2.5L Cannula 08/20 0000 BIPAP 08/19 2200 Nasal 2.0L Cannula 08/19 2200 97.5 96 20 130/72 97 Nasal 2.0L Cannula ED Intake and Output 08/20 0000 08/19 1200 Intake Total 250 Output Total Balance 250 Intake, IV 250 Patient 186 lb Weight Past History Travel History Traveled to [place] past 21 day No Medical History Any Pertinent Medical History? 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 Psychiatric: NONE Endocrine: NONE Blood Disorders: anemia Cancer(s): NONE MEDICAL SALES REPRESENTATIVE/Reproductive: NONE Other Medical Hx: reactive adenopathy History of MRSA: Yes History of VRE: No History of CDIFF: No Surgical History Surgical History: VENOUS CLOSURE X 5 TO BLE BRONCHOSCOPY Psychosocial History Who do you live with Significant Other Services at Home Oxygen What is your primary language Malay Tobacco Use: Current Daily Use Daily Tobacco Use Amount/Type: => 5 Cigarettes daily Family History Family History, If Any: SISTER FH: hypertension FATHER Cerebral hemorrhage Hx Contributory? Yes (JASON ATKINSON PA-C) Review of Systems Review of Systems Constitutional: Reports: no symptoms. Comments Unable to obtain full review of systems due to this patient's age. (DEMETRIO MAO,JASON) Physical Exam Physical Exam General Appearance: well developed/nourished, awake, moderate distress, intoxicated Comments: Well-developed well-nourished person in moderate distress HEENT: Normal EENT exam, head normocephalic/atraumatic Pupils dilated bilaterally and minimally reactive. Nose is atraumatic. Neck: Supple, no lymphadenopathy Back: Normal inspection Cardiovascular: Regular rate and rhythm with no murmurs, rubs, or gallops Respiratory: Breath sounds clear to auscultation bilaterally Abdomen: Soft, nondistended. Large abdominal dressing noted over the chest and abdomen. Large wound with purulent drainage and surrounding erythema Extremity: 1+ pitting edema to the left lower extremity. Dressing intact over the right lower extremity. no calf tenderness to palpation, normal and equal pulses. Neuro: Alert. Grunting Skin: No appreciable rash on exposed skin, skin is warm and dry. Core Measures ACS in differential dx? Yes CVA/TIA Diagnosis: No Severe Sepsis Present: No Septic Shock Present: No (DEMETRIO MAO,JASON) Progress Differential Diagnosis: arrythmia, alcohol intoxication, CVA/stroke, drug intoxication, encephalitis, electrolyte imbalance, GI bleed, hypoglycemia, hypoxia, intracranial Hem., pneumonia, sepsis, seizure disorder, subarachnoid Hem., UTI/pyelo, vertebrobasilar insuff Diagnostic Imaging: Viewed by Me: Radiology Read, CT Scan. Discussed w/RAD: Radiology Read, CT Scan. Radiology Impression: PATIENT: TORSTEN CHAUDHARI PRESENT AGE: 51 PATIENT ACCOUNT NO: [id number] : 67 LOCATION: [facility] ORDERING PHYSICIAN: JASON ATKINSON PA-C SERVICE DATE: 08/19/16 EXAM TYPE: CAT - CT HEAD WO IV CONTRAST EXAMINATION: CT HEAD WITHOUT CONTRAST CLINICAL INFORMATION: 51-year-old male presented with altered mental status. COMPARISON: CT of the head done on 08/05/2016. TECHNIQUE: Contiguous axial imaging was performed from the skull base to vertex without intravenous administration of contrast. DLP: 1878.84 mGy-cm. FINDINGS: Suboptimal evaluation due to extreme motion related artifacts. Specifically, both middle as well as the posterior cranial fossa are not evaluated due to artifacts. The supratentorial part of the brain parenchyma grossly appears unremarkable. Repeat evaluation when the patient is able is recommended. IMPRESSION: Suboptimal study due to motion related artifacts. Repeat study when the patient is able or, alternatively, with premedication may be considered as appropriate for a full detailed evaluation. DICTATED BY: DEAN YEH MD DATE/TIME DICTATED:08/19/161708 VISUAL ARTS TEACHER:LAURA DATE/TIME TRANSCRIBED:08/19/161708 CONFIDENTIAL, DO NOT COPY WITHOUT APPROPRIATE AUTHORIZATION. <Electronically signed in Other Vendor System> SIGNED BY: DEAN YEH MD 08/19/161723 CXR Impression: PATIENT: TORSTEN CHAUDHARI PRESENT AGE: 51 PATIENT ACCOUNT NO: [id number] : 67 LOCATION: [facility] ORDERING PHYSICIAN: JASON ATKINSON PA-C SERVICE DATE: 08/19/16 EXAM TYPE: RAD - XRY- PORTABLE CHEST XRAY EXAMINATION: XR PORTABLE CHEST CLINICAL INFORMATION: Altered mental status. Pneumonia. COMPARISON: Chest x-ray 08/05/2016 TECHNIQUE: Portable AP view of the chest was obtained. 4:36 PM FINDINGS: There is pulmonary vascular prominence with interstitial edema. This is worse than prior chest x-ray of . No dense consolidation. IMPRESSION: Pulmonary vascular congestion with interstitial edema which has worsened since prior chest x-ray of 08/05/2016. DICTATED BY: MARK SANDERS MD DATE/TIME DICTATED:08/19/161652 VISUAL ARTS TEACHER :LAURA DATE/TIME TRANSCRIBED:08/19/161652 CONFIDENTIAL, DO NOT COPY WITHOUT APPROPRIATE AUTHORIZATION. <Electronically signed in Other Vendor System> SIGNED BY: MARK SANDERS MD 08/19/161658 Initial ED EKG: normal axis, normal intervals, RBBB, no ST T wave changes, sinus tachycardia, 98 bpm Comments: 08/19/2016 2:45:12 PM: Dr. Ware evaluated this patient [id number]. 08/19/2016 5:13:48 PM: The patient's is currently at the bedside. She reported that this patient has a lot of medical problems. She reported, "I can' t take him home when he is continually getting into the state." She reported that she typically started with ministers his medications, but reported that she does not know if he ever takes anything extra. She reported that he had the oxycodone on him today because it is used for his breakthrough medication; she reported that she just filled this prescription for him. He uses OxyContin at home which she gave him his usual dose this morning. She reported that he has been admitted here in the past and they do not know whether it is his kidneys that have been causing him to become altered or medication. She reported that he sees Dr. Aguilar for his kidneys. She reported that he sees Dr. Ruelas for his GI symptoms. She reported that he recently had a transfusion and his, "blood count went back up to 40, but now today it looks like it is back down within a matter of days." She reported that he would like him to go for an endoscopy, but Fabio Mckoy MD does not want him to go for an endoscopy due to the anesthesia. He also sees Dr. Lopes for persistently high white blood cell count. (DEMETRIO MAO,JASON) Plan of Care: Orders Procedure Date/time Status Anticipated Discharge 08/21 UNK Active Heart Healthy Diet 08/20 B Active Change service to 08/20 0754 Active CIWA 08/20 0750 Active CBC WITHOUT DIFFERENTIAL 08/20 0631 Active BASIC ELECTROLYTES PLUS BUN&CR 08/20 0631 Active HEPATIC FUNCTION PANEL 08/20 0600 Complete CBC WITHOUT DIFFERENTIAL 08/20 0600 Complete BASIC ELECTROLYTES PLUS BUN&CR 08/20 0600 Complete BIPAP 08/20 0022 Complete PT Evaluate & Treat 08/20 UNK Active Therapeutic Activities 08/20 UNK Complete PT EVAL MOD COMPLEX 30 MIN 08/20 UNK Complete Gait Training 08/20 UNK Complete Wound Care/Dressing 08/20 UNK Active SOCIAL WORK CONSULT 08/20 UNK Active PSYCHIATRIC CONSULT 08/20 UNK Active Turn and Reposition 08/19 2238 Complete Skin Integrity Protocol 08/19 2238 Active NUTRITIONAL CONSULT 08/19 2238 Active Teach/Educate 08/19 2201 Active Nutritional Intake, Monitor 08/19 2201 Active Isolation 08/19 2201 Active Patient Care Conference 08/19 2201 Active Activity/Ambulation 08/19 2201 Active Pathway - chart 08/19 2140 Active House Staff 08/19 2140 Active Patient Data 08/19 2140 Active Code Status 08/19 2140 Active CULTURE,URINE 08/19 2138 Active Lab Add-on Test 08/19 UNK Active VTE Mechanical Prophylaxis 08/19 UNK Complete Vital Signs 08/19 UNK Active Telemetry/Assembly Inspector Helper 08/19 UNK Active Precautions 08/19 UNK Active Emeli Coma Scale 08/19 UNK Active Current Medications Sig/Silvana Start time Last Medication Dose Stop Time Status Admin Oxycodone HCl 30 MG Q12 PRN 08/20 2200 AC (Roxicodone) Oxycodone HCl 60 MG BID 08/20 1901 AC (OxyCONTIN) Laboratory Tests 08/20/16 0600: Anion Gap 8, Estimated GFR > 60, BUN/Creatinine Ratio 21.7, Total Bilirubin 0.2, Direct Bilirubin 0.2, AST 23, ALT 27, Alkaline Phosphatase 212 H, Total Protein 5.0 L, Albumin 1.9 L, CBC w Diff NO MAN DIFF REQ, RBC 3.40 L, MCV 78.1 L, MCH 25.9 L, RDW 21.7 H, MPV 6.2 L, Gran % 65.2, Lymphocytes % 22.8, Monocytes % 7.5, Eosinophils % 3.1, Basophils % 1.4, Absolute Granulocytes 10.6 H, Absolute Lymphocytes 3.7 H, Absolute Monocytes 1.2 H, Absolute Eosinophils 0.5 , Absolute Basophils 0.2, PUBS MCHC 33.1 Departure Departure Disposition: STILL A PATIENT Condition: Stable Clinical Impression Primary Impression: Altered mental status Qualifiers: Altered mental status type: unspecified Qualified Code: R41.82 - Altered mental status, unspecified Secondary Impressions: Acute kidney injury Anemia Qualifiers: Anemia type: unspecified type Qualified Code: D64.9 - Anemia, unspecified Interstitial edema Leukocytosis Qualifiers: Leukocytosis type: unspecified Qualified Code: D72.829 - Elevated white blood cell count, unspecified UTI (urinary tract infection) Qualifiers: Urinary tract infection type: site unspecified Hematuria presence: with hematuria Qualified Codes: N39.0 - Urinary tract infection, site not specified; R31.9 - Hematuria, unspecified Referrals: YULI FRAZIER MD (PCP/Family) Departure Forms: Customer Survey General Discharge Information Admission Note Spoke With: YANIRA BARKER MD Documentation of Exam: Documentation of any treatments & extenuating circumstances including Concerns Regarding Discharge (functional status, medication knowledge or non-compliance, living conditions, etc.) that warrant an admission rather than observation: [ This patient is a 51-year-old male with a past medical history including CHF, ARDS, diabetes who presented to the emergency department today brought in by ambulance for evaluation of unresponsiveness. This patient has pulmonary vascular congestion and interstitial edema noted on chest x-ray. Leukocytosis. This patient is anemic with a developing mild UTI. He has acute kidney injury. This patient should be admitted to the emergency department for IV fluids, close monitoring, IV antibiotics, repeat head CT scan, follow-up blood cultures, follow-up urine culture, possible blood transfusion/trend labs, pulmonology consultation, nephrology consultation, hematology and oncology consultation, PT consultation, and case management consultation. This patient is a poor candidate for outpatient treatment given his current clinical state and past medical history. Premature discharge could prove medically harmful.] (DEMETRIO MAO,JASON) PA/BUTTONHOLE MAKER HAND Co-Sign Statement Statement: ED Attending supervision documentation- [X] I saw and evaluated the patient. I have also reviewed all the pertinent lab results and diagnostic results. I agree with the findings and the plan of care as documented in the PA's/BUTTONHOLE MAKER HAND's documentation. [] I have reviewed the ED Record and agree with the PA's/BUTTONHOLE MAKER HAND's documentation. [] Additions or exceptions (if any) to the PAs/BUTTONHOLE MAKER HAND's note and plan are summarized below: [] (BRIAN HULL,LI Lazcano)
--- NOTE | 2016-08-19 14:38 | NUR ---
MD BRIAN AT BEDSIDE FOR PT EVAL. EKG IN PROGRESS.
--- NOTE | 2016-08-19 15:26 | NUR ---
FAMILY AND BIRD GOMEZ TO BEDSIDE TO DISCUSS POC.
[2016-08-19 15:43] LABS: ABSOLUTE BASOPHIL COUNT 0 /CUMM (0.0-0.2); ABSOLUTE EOSINOPHIL COUNT 0 /CUMM (0.0-0.7); ABSOLUTE GRANULOCYTE CT 14.7 /CUMM (1.4-6.5); ABSOLUTE LYMPH COUNT 1.4 /CUMM (1.2-3.4); ABSOLUTE MONOCYTE COUNT 0.3 /CUMM (0.10-0.60); BASOPHIL % 0.1 % (0.0-2.0); EOSINOPHIL % 0.2 % (0-5); GRANULOCYTE % 89.7 % (42.2-75.2); HEMATOCRIT 26.4 % (42-52); MEAN CORPUSCULAR HGB 25.8 PG (27.0-31.0); MEAN CORPUSCULAR VOLUME 77.9 FL (80.0-94.0); MEAN PLATELET VOLUME 6.1 FL (7.4-10.4); PLATELET COUNT 392 /CUMM (130-400); RBC DISTRIBUTION WIDTH 21.6 % (11.5-14.5); RED BLOOD CELL CT 3.39 /CUMM (4.70-6.10); WHITE BLOOD CELL COUNT 16.4 /CUMM (4.8-10.8)
--- NOTE | 2016-08-19 15:47 | NUR ---
BLOOD DRAWN AND SENT TO LAB-[facility], 1ST BC. PT STRAIGHT CATH, STERILE TECHNIQUE MAINTAINED, 900ML OF DARK JACEY URINE OBTAINED AND SENT TO LAB. IV EST RF G22.
[2016-08-19] MEDS ORDERED: ALBUTEROL2.5 MG/3 M INH/SOL (16:04)
[2016-08-19] MEDS ORDERED: BACLOFEN10 M1 PO (16:06)
[2016-08-19] MEDS ORDERED: OXYCONTIN60 M1 PO (16:06)
[2016-08-19] MEDS ORDERED: MARI (16:07)
[2016-08-19] MEDS ORDERED: ASPIRIN EC81 M1 PO (16:08)
[2016-08-19] MEDS ORDERED: LASIX40 M1 PO (16:09)
[2016-08-19] MEDS ORDERED: METOLAZONE5 M1 PO (16:09)
--- NOTE | 2016-08-19 16:37 | NUR ---
RAD AT BEDSIDE FOR CHEST XRAY.
--- NOTE | 2016-08-19 16:58 | NUR ---
PT TO CAT SCAN BY STRETCHER.
--- NOTE | 2016-08-19 16:59 | RADIOLOGY REPORT ---
EXAMINATION: XR PORTABLE CHEST CLINICAL INFORMATION: Altered mental status. Pneumonia. COMPARISON: Chest x-ray 08/05/2016 TECHNIQUE: Portable AP view of the chest was obtained. 4:36 PM FINDINGS: There is pulmonary vascular prominence with interstitial edema. This is worse than prior chest x-ray of 08/05/2016. No dense consolidation. IMPRESSION: Pulmonary vascular congestion with interstitial edema which has worsened since prior chest x-ray of 08/05/2016.
--- NOTE | 2016-08-19 17:06 | NUR ---
PT RETURNED FROM CAT SCAN. RESP AT BEDSIDE FOR ABG.
--- NOTE | 2016-08-19 17:24 | CT SCAN REPORT ---
EXAMINATION: CT HEAD WITHOUT CONTRAST CLINICAL INFORMATION: 51-year-old male presented with altered mental status. COMPARISON: CT of the head done on 08/05/2016. TECHNIQUE: Contiguous axial imaging was performed from the skull base to vertex without intravenous administration of contrast. DLP: 1878.84 mGy-cm. FINDINGS: Suboptimal evaluation due to extreme motion related artifacts. Specifically, both middle as well as the posterior cranial fossa are not evaluated due to artifacts. The supratentorial part of the brain parenchyma grossly appears unremarkable. Repeat evaluation when the patient is able is recommended. IMPRESSION: Suboptimal study due to motion related artifacts. Repeat study when the patient is able or, alternatively, with premedication may be considered as appropriate for a full detailed evaluation.
--- NOTE | 2016-08-19 17:48 | NUR ---
PT RESTING, RR 12, 98%, PT HAS RHONCHI WITH COUGH INTERMITENT, DENIES PAIN. PT SEEMS SOMNOLENT AND FALLS ASLEEP OFTEN EVEN DURING CONVERSATIONS. PT IS NOT SNORING AND HIS AIRWAY IS NOT OCCLUDING. PUPILS ARE 3MM AND DO DILATE.
--- NOTE | 2016-08-19 19:18 | NUR ---
HOUSE STAFF AT BEDSIDE.
--- NOTE | 2016-08-19 19:36 | NUR ---
PT TO ROOM BED 2, ROOM IS NOT CLEAN AT THIS TIME
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
--- NOTE | 2016-08-19 20:31 | NUR ---
HOUSE STAFF AT BEDSIDE.
--- NOTE | 2016-08-19 20:47 | NUR ---
REPORT GIVEN TO TELE TO CHIDI JACKSON
--- NOTE | 2016-08-19 21:13 | NUR ---
[facility] CALLED FOR TRANSPORT TO ROOM 181.
[2016-08-19 22:00] VITALS: BP 130/72
--- NOTE | 2016-08-20 01:14 | Admission Certification ---
Admission Certification Certification Statement - As attending physician, I certify that at the time of - admission, based on clinical presentation, severity of - symptoms, need for further diagnostic testing and - therapeutic interventions, and risk of adverse outcomes - without in-hospital treatment, in my clinical assessment, - this patient requires an acute hospital stay for a minimum - of two nights or longer. I have also considered psychsocial - factors such as support system, advanced age, financial - issues, cognitive issues, and failed out-patient treatments, - past re-admission history, safety of patient, and lack of - compliance as applicable. Specific rationale supporting this admission is: Encephalopathy
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
[2016-08-20 08:06] LABS: ABSOLUTE BASOPHIL COUNT 0.2 /CUMM (0.0-0.2); ABSOLUTE EOSINOPHIL COUNT 0.5 /CUMM (0.0-0.7); ABSOLUTE GRANULOCYTE CT 10.6 /CUMM (1.4-6.5); ABSOLUTE LYMPH COUNT 3.7 /CUMM (1.2-3.4); ABSOLUTE MONOCYTE COUNT 1.2 /CUMM (0.10-0.60); BASOPHIL % 1.4 % (0.0-2.0); EOSINOPHIL % 3.1 % (0-5); HEMATOCRIT 26.5 % (42-52); MEAN CORPUSCULAR HGB 25.9 PG (27.0-31.0); MEAN CORPUSCULAR HGB CONC 33.1 G/DL (33.0-37.0); MEAN CORPUSCULAR VOLUME 78.1 FL (80.0-94.0); MEAN PLATELET VOLUME 6.2 FL (7.4-10.4); PLATELET COUNT 430 /CUMM (130-400); RBC DISTRIBUTION WIDTH 21.7 % (11.5-14.5); WHITE BLOOD CELL COUNT 16.3 /CUMM (4.8-10.8)
[2016-08-20 08:14] VITALS: BP 146/70
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
[2016-08-20 08:59] LABS: GRANULOCYTE % 65.2 % (42.2-75.2)
--- NOTE | 2016-08-20 09:12 | CT SCAN REPORT ---
EXAMINATION: CT HEAD WITHOUT CONTRAST CLINICAL INFORMATION: 51-year-old man with seizure and confusion. COMPARISON: 08/19/[address] TECHNIQUE: Contiguous axial imaging was performed from the skull base to vertex without intravenous administration of contrast. DLP: 1201 mGy-cm. FINDINGS: There is no evidence of acute intracranial hemorrhage or territorial infarction. No abnormal mass effect or midline shift is seen. Ham to white matter differentiation is well preserved. No extra-axial fluid collections are identified. The ventricles are normal in size. There is no abnormal attenuation within the brain parenchyma. The osseous structures and soft tissues are normal. The mastoid air cells and visualized portions of the paranasal sinuses are well aerated. IMPRESSION: No acute intracranial pathology.
[2016-08-20] MEDS ORDERED: OXYCODONE HCL E10 MG PO (12:12)
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
[2016-08-20] MEDS ORDERED: OXYCODONE HCL30 M1 PO (15:22)
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
[2016-08-20 16:29] VITALS: BP 163/90
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
--- NOTE | 2016-08-20 23:27 | ELECTROENCEPHALOGRAM REPORT ---
Electroencephalogram Report Electroencephalogram Results Date of service: 08/20/16 Attending MD: TORSTEN GIBBS MD Student Admissions Clerk: Cassidy EEG Number: [id number] Test Utilizes: Test Utilizes a 10-20 system, 21 lead, 18 channel digital recording Pertinent Hx/Physical/Neuro Findings/Clin Diagnosis: AMS Inpatient Medications: Current Medications Sig/Silvana Start time Last Medication Dose Route Stop Time Status Admin Heparin Sodium 5,000 UNIT Q8 08/19 2200 AC 08/20 (Porcine) SC 1553 Heparin Sodium 5,000 UNIT Q8 08/19 2200 DC (Porcine) SC Lorazepam 1 MG Q2P PRN 08/20 0700 AC 08/20 PO 0753 Oxycodone HCl 30 MG Q12 PRN 08/20 2200 AC PO Oxycodone HCl 60 MG BID 08/20 1901 AC PO Oxycodone HCl 30 MG BID 08/20 1900 DC PO Oxycodone HCl 15 MG ONCE ONE 08/20 0800 DC PO 08/20 0801 Patient Medication 1 UNIT ONE NR 08/20 1915 DC Teaching ED 08/20 1930 Silver Sulfadiazine 1 JENNIFER SEE ADMIN CRITERIA 08/20 1430 AC 08/20 TOP 1905 Interpretation: The recording demonstrates the normal frequency gradient, faster frequencies frontally and slower posteriorly. The posterior dominant rhythm is slower than expected for age at 7 hertz bilaterally. There are no paroxysmal sharps or spike. There is no focal slowing. Impression: Mildly abnormal EEG due to slowing of the background rhythms suggestive of a mild encephalopathy.
[2016-08-20 23:55] VITALS: BP 130/60
[2016-08-21 07:51] VITALS: BP 140/72
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
[2016-08-21 16:28] VITALS: BP 140/76
[2016-08-22 00:23] VITALS: BP 138/70
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
[2016-08-22 08:17] VITALS: BP 136/74
[2016-08-22 11:36] LABS: ABSOLUTE BASOPHIL COUNT 0.2 /CUMM (0.0-0.2); ABSOLUTE EOSINOPHIL COUNT 0.6 /CUMM (0.0-0.7); ABSOLUTE GRANULOCYTE CT 7.8 /CUMM (1.4-6.5); ABSOLUTE MONOCYTE COUNT 0.9 /CUMM (0.10-0.60); BASOPHIL % 1.3 % (0.0-2.0); EOSINOPHIL % 5.1 % (0-5); GRANULOCYTE % 62.4 % (42.2-75.2); HEMATOCRIT 25.7 % (42-52); MEAN CORPUSCULAR HGB 25.6 PG (27.0-31.0); MEAN CORPUSCULAR HGB CONC 32.6 G/DL (33.0-37.0); MEAN CORPUSCULAR VOLUME 78.6 FL (80.0-94.0); PLATELET COUNT 393 /CUMM (130-400); RBC DISTRIBUTION WIDTH 21.2 % (11.5-14.5); RED BLOOD CELL CT 3.27 /CUMM (4.70-6.10); WHITE BLOOD CELL COUNT 12.5 /CUMM (4.8-10.8)
--- NOTE | 2016-08-22 13:15 | NUR ---
A CONCERN WAS BROUGHT UP BY THIS RN REGARDING PT'S HOME DOSE OF OXYCONTIN. HOME DOSE IS 60 MG BID, THIS DOSE WAS NOT FULLY CONTINUED WHILE IN HOSPITAL DUE TO DROWSINESS. I DISCUSSED THIS CONCERN WITH DR. CIARA WOODY WHO STATED THAT THIS TOPIC WAS DISCUSSED WITH DR. GIBBS, AND THE PATIENT WOULD BE REFERRED TO THE PAIN MGT TEAM ALREADY IN PLACE TO ADJUST ALL MEDICATIONS. NO ADJUSTMENTS WOULD BE MADE FOR DISCHARGE. PER DR. CIARA WOODY- 30 MG OXYCONTIN GIVEN TO PATIENT BEFORE DISCHARGE, AM DOSE.
[2016-12-07] MEDS ORDERED: FOSAMAX70 M1 PO (15:53)
[2016-12-07] MEDS ORDERED: PREDNISONE10 M2 PO (15:53)
[2016-12-07] MEDS ORDERED: AMITRIPTYLINE150 M2 PO (15:54)
[2016-12-07] MEDS ORDERED: METOLAZONE (15:55)
[2016-12-07] MEDS ORDERED: OXYCONTIN40 M1 PO (15:56)
[2016-12-07] MEDS ORDERED: FUROSEMIDE40 M1 PO (15:56)
[2016-12-07] MEDS ORDERED: OXYCODONE HCL30 M1 PO (15:56)
[2016-12-07] MEDS ORDERED: NEURONTIN800 M2 PO (15:56)
== END 2016-08-22 13:20 | disposition home health service (06) | DRG 917 ==
LOC: CANRESERV → ENRESERVDT → ENRESERVTM → ERH 14:12 → ERHI 19:35 → 1NO 19:35
PROVIDERS: Physician Assistant; Student in an Organized Health Care Education/Training Program; ADMIT Internal Medicine
DX: T40.2X1A Poisoning by other opioids, accidental (unintentional), initial encounter (principal); G92 Toxic encephalopathy; N17.9 Acute kidney failure, unspecified; J96.11 Chronic respiratory failure with hypoxia; E46 Unspecified protein-calorie malnutrition; I50.32 Chronic diastolic (congestive) heart failure; N39.0 Urinary tract infection, site not specified; L97.811 Non-pressure chronic ulcer of other part of right lower leg limited to breakdown of skin; I13.0 Hypertensive heart and chronic kidney disease with heart failure and stage 1 through stage 4 chronic kidney disease, or unspecified chronic kidney disease; D64.9 Anemia, unspecified; J44.9 Chronic obstructive pulmonary disease, unspecified; X15.0XXA Contact with hot stove (kitchen), initial encounter; Z68.25 Body mass index [BMI] 25.0-25.9, adult; T21.21XA Burn of second degree of chest wall, initial encounter; Z99.81 Dependence on supplemental oxygen; E11.22 Type 2 diabetes mellitus with diabetic chronic kidney disease; N18.9 Chronic kidney disease, unspecified
CPT/HCPCS: 1NP; 36415; 80307; 81001; 82436; 87040; 87086; 93005; 93010; 95816; 97116-GO; 97162-GP; 97530-GO; 99233; G0480; J1644; J7060

== ENCOUNTER 2016-08-26 10:17 | Inpatient (IN) | payer OTHER ==
[~2016-08-26] VITALS: Ht 167.6 cm; Wt 78.9 kg
[~2016-08-26 10:17] MED LIST changes: +ASPIRIN EC81 M1 PO; +MARI; +OXYCODONE HCL E10 MG PO
--- NOTE | 2016-08-26 10:24 | ED GENERAL ADULT ---
History of Present Illness General Chief Complaint: Altered Mental Status Stated Complaint: AMD/?SUBSTANCE ABUSE Source: EMS Exam Limitations: not alert/orientated, clinical condition, confusion, intoxication, physical impairment Vital Signs & Intake/Output Vital Signs & Intake/Output Vital Signs Date Time Temp Pulse Resp B/P Pulse O2 O2 Flow FiO2 Ox Delivery Rate 08/26 1401 97.4 97 20 115/55 96 Nasal 4.0L Cannula 08/26 1325 96 Nasal 4.0L Cannula 08/26 1302 98.1 102 12 106/55 96 Nasal 4.0L Cannula 08/26 1237 98.9 106 18 125/85 96 Nasal 4.0L Cannula 08/26 1221 84 Room Air 08/26 1221 98.7 104 18 135/74 100 Room Air 08/26 1130 99.9 124 21 149/79 84 Nasal Cannula Allergies Coded Allergies: Iodinated Contrast Media - Oral and (IODINATED CONTRAST MEDIA - IV DYE) (RED RASH TOLERATES WITH BENADRYL 01/12/16) Reconcile Medications Albuterol Sulfate 2.5 MG/3 ML (0.083 %) VIAL.NEB 1 Vial INH/[place] Q4-6H PRN COPD (Reported) Albuterol Sulfate (Albuterol Sulfate Hfa) 90 MCG HFA.AER.AD 2 PUFF INH Q4-6 PRN PRN SHORTNESS OF BREATH (Reported) 90 MCG PER PUFF Amitriptyline Hydrochloride (Amitriptyline HCl) 150 MG TAB 1 TAB PO DAILY NEUROPATHY (Reported) Aspirin (Ecotrin*) 81 MG TABLET.DR 1 TAB PO DAILY HEART/BLOOD (Reported) Baclofen 10 MG TABLET 1 TAB PO TID MUSCLE SPASMS (Reported) Fluticasone-Salmeterol (Advair 100-50 Diskus) 100 MCG-50 MCG/DOSE BLST.W.DEV 1 PUF INH BID COPD (Reported) Furosemide (Lasix) 40 MG TABLET 1 TAB PO BID DIURETIC (Reported) Gabapentin 800 MG TABLET 1 TAB PO 4 TIMES/DAY NEUROPATHY (Reported) Losartan Potassium (Cozaar) 50 MG TABLET 1 TAB PO DAILY BP (Reported) Oxycodone HCl 30 MG TABLET 1 TAB PO BID PRN Sever pain (Reported) Oxycodone HCl (Oxycontin) 60 MG TAB.ER.12H 1 TAB PO BID PAIN (Reported) Prednisone 10 MG TABLET 1 TAB PO DAILY COPD /INTERSTITIAL LUNG DISEAS AFTER FINISHING PREDNISONE TAPER. Risedronate Sodium (Actonel) 35 MG TABLET 1 TAB PO QMON BONE (Reported) Triage Nurses Notes Reviewed? yes Onset: Abrupt Duration: hour(s): Timing: recent history HPI: 08/26/16 10:15 AM 51-year-old male presents to the emergency department by EMS for altered mental status. According to EMS he's been confused over the past 12 hours. A friend called 911. The patient has a history of alcohol and substance abuse he did get Narcan in the field. On arrival into the emergency department he is confused. O2 sat is 95% on oxygen. His pupils are mydriatic. The onset of the symptoms were abrupt, the duration is unknown, the severity is significant as his symptoms required to come to the emergency department for care he presents with confusion and agitation. I spoke with his Ashlee who can be reached at [phone]. She said that over the last 12 hours he's become progressively confused and more agitated. This morning he was unresponsive and so 911 was called. Past History Medical History Any Pertinent Medical History? 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 No Review of Systems Review of Systems Constitutional: Reports: no symptoms. EENTM: Reports: no symptoms. Respiratory: Reports: cough, short of breath. Cardiovascular: Reports: no symptoms. GI: Reports: no symptoms. Genitourinary: Reports: no symptoms. Musculoskeletal: Reports: no symptoms. Skin: Reports: no symptoms. Neurological/Psychological: Reports: confusion. Hematologic/Endocrine: Reports: no symptoms. Physical Exam Physical Exam General Appearance: anxious, severe distress Head: atraumatic Eyes: Bilateral: EOMI (mydriatic). Ears, Nose, Throat: pharyngeal erythema Neck: supple Respiratory: decreased breath sounds, respiratory distress Cardiovascular: tachycardic Peripheral Pulses: 4+ radial (R), 4+ radial (L) Gastrointestinal: non-tender Back: decreased range of motion Extremities: pedal edema, tenderness Neurologic/Psych: agitated, nonfocal Skin: rash (dubon to chest LLE) Core Measures ACS in differential dx? No CVA/TIA Diagnosis: No Severe Sepsis Present: No Septic Shock Present: No Progress Differential Diagnoses I considered the following diagnoses in my evaluation of the patient: [Anoxic encephalopathy, intracranial bleed, CVA, sepsis, opiate overdose, Tylenol overdose, aspirin overdose, alcohol withdrawal, alcohol intoxication, polysubstance abuse hypotency cannabis intoxication] Plan of Care: Orders Procedure Date/time Status CBC WITHOUT DIFFERENTIAL 08/27 0500 Active BASIC ELECTROLYTES PLUS BUN&CR 08/27 0500 Active Nothing by Mouth 08/26 D Active EKG 08/26 1800 Active TRC EVALUATION (GEN) 08/26 1433 Active Pathway - chart 08/26 1433 Active House Staff 08/26 1433 Active Patient Data 08/26 1433 Active TROPONIN LEVEL 08/26 1433 Active Code Status 08/26 1433 Active LACTIC ACID 08/26 1336 Complete Admit to inpatient 08/26 1329 Active AMMONIA 08/26 1324 Complete Patient Data 08/26 1316 Active Add-on Test (ER Only) 08/26 1234 Active ACETOMINOPHEN 08/26 1129 Complete SALICYLATE 08/26 1129 Complete ARTERIAL BLOOD GAS (GEN) 08/26 1111 Complete BLOOD CULTURE 08/26 1036 Active LACTIC ACID 08/26 1036 Complete Smith, Insertion/Removal/Asses 08/26 1032 Active CULTURE,URINE 08/26 1032 Active URINE DRUG SCREEN FOR ER ONLY 08/26 1032 Complete TROPONIN LEVEL 08/26 1032 Complete ETHANOL 08/26 1032 Complete COMPREHENSIVE METABOLIC PANEL 08/26 1032 Complete CBC WITHOUT DIFFERENTIAL 08/26 1032 Complete EKG 08/26 1032 Active Current Medications Sig/Silvana Start time Last Medication Dose Stop Time Status Admin Heparin Sodium 5,000 UNIT Q8 08/26 1432 UNVr (Porcine) Laboratory Tests 08/26/16 1342: Lactic Acid 0.6 L 08/26/16 1312: Ammonia 11 08/26/16 1300: pH 7.38, pCO2 39, pO2 97, HCO3 22, ABG O2 Sat (Measured) 97.0, Carboxyhemoglobin 0.5 L, O2 Concentration % 4L, O2 Delivery Method NASAL CANNULA, Phlebotomy Draw Site RIGHT RADIAL 08/26/16 1202: Urine Opiates Screen 821.00, Methadone Screen 82, Barbiturate Screen < 60, Ur Phencyclidine Scrn < 6.00, Amphetamines Screen < 100, U Benzodiazepines Scrn 98, Urine Cocaine Screen < 50, Urine Cannabis Screen > 80.00 H 08/26/16 1129: Anion Gap 4 L, Estimated GFR 46 L, BUN/Creatinine Ratio 16.9, Glucose 91, Calcium 6.8 L, Total Bilirubin 0.5, AST 65 H, ALT 30, Alkaline Phosphatase 183 H, Troponin I 0.05, Total Protein 4.7 L, Albumin 1.7 L, Globulin 3.0, Albumin /Globulin Ratio 0.6 L, CBC w Diff MAN DIFF ORDERED, RBC 3.10 L, MCV 75.8 L, MCH 25.2 L, RDW 21.2 H, MPV 6.1 L, Gran % 77.1 H, Lymphocytes % 16.2 L, Monocytes % 3.8, Eosinophils % 0.2, Basophils % 2.7 H, Absolute Granulocytes 13.1 H, Absolute Lymphocytes 2.8, Absolute Monocytes 0.6, Absolute Eosinophils 0, Absolute Basophils 0.5, Platelet Estimate ADEQUATE, Hypochromic-Microcytic 2+ , Poikilocytosis 1+, Anisocytosis 1+, Microcytic Cells 1+, PUBS MCHC 33.2, Salicylates < 1.0, Acetaminophen < 10.0 L, Serum Alcohol < 10.0 08/26/16 1036: Lactic Acid 1.0 Microbiology 08/26 1202 URINE ROUT: Urine Culture - RECD 08/26 1147 BLOOD: Blood Culture - RECD 08/26 1129 BLOOD: Blood Culture - RECD Initial ED EKG: NSR, RBBB, LAFB Prior EKG: unchanged Departure Departure Disposition: STILL A PATIENT Condition: Guarded Clinical Impression Primary Impression: Altered mental status Secondary Impressions: Respiratory failure, Substance abuse Referrals: YULI FRAZIER MD (PCP/Family) Departure Forms: Customer Survey General Discharge Information Admission Note Spoke With: Fabio MEZA MD Documentation of Exam: Documentation of any treatments & extenuating circumstances including Concerns Regarding Discharge (functional status, medication knowledge or non-compliance, living conditions, etc.) that warrant an admission rather than observation: [The patient needs admission for oxygen, neuro checks every 4 hours, follow the blood cultures, follow the ammonia level, calcium replacement, control of agitation] Critical Care Note Critical Care Note Critical Care Time: 30-74 min
[2016-08-26 11:52] LABS: ABSOLUTE BASOPHIL COUNT 0.5 /CUMM (0.0-0.2); ABSOLUTE EOSINOPHIL COUNT 0 /CUMM (0.0-0.7); ABSOLUTE GRANULOCYTE CT 13.1 /CUMM (1.4-6.5); ABSOLUTE LYMPH COUNT 2.8 /CUMM (1.2-3.4); ABSOLUTE MONOCYTE COUNT 0.6 /CUMM (0.10-0.60); BASOPHIL % 2.7 % (0.0-2.0); EOSINOPHIL % 0.2 % (0-5); GRANULOCYTE % 77.1 % (42.2-75.2); HEMATOCRIT 23.5 % (42-52); MEAN CORPUSCULAR HGB 25.2 PG (27.0-31.0); MEAN CORPUSCULAR HGB CONC 33.2 G/DL (33.0-37.0); MEAN CORPUSCULAR VOLUME 75.8 FL (80.0-94.0); MEAN PLATELET VOLUME 6.1 FL (7.4-10.4); PLATELET COUNT 415 /CUMM (130-400); RBC DISTRIBUTION WIDTH 21.2 % (11.5-14.5)
--- NOTE | 2016-08-26 11:54 | NUR ---
BLOOD DRAWN AND SENT TO LAB (BLUE, SST, NATHAN, PINK ,LAV) BOTH CULTURE SETS DRAWN
--- NOTE | 2016-08-26 12:18 | NUR ---
PT PARTHA FROM HOME AFTER "FRIEND STATED HE HAD BEEN UNRESPONSIVE FOR THE PAST 12 HOURS SO HE CALLED" PT RECENTLY DISCHARGED FROM [facility] FOR SAME. ON ARRIVAL TO ED, PT UNRESPONSIVE, FLAILING, UNABLE TO FOLLOW COMMANDS. HOT TO TOUCH, BURN ON CHEST WHICH APPEARS TO BE IN VARIOUS STAGES OF HEALING, LARGE BLISTERS APPROX SIZE OF BASEBALL NOTED TO LATERAL ASPECT OF LEFT LOWER LEG, UPON PT HITTING LEG AGAINST SIDE RAIL LARGE BLISTER POPPED AND DRESSED WITH TEFLA DRESSING PER DR FOX. LUNGS ARE RHONCOROUS THROUGHOUT, 02 SAT 86% ON RA, PLACED ON 4LNC AND 02 SAT 98%. PT BROUGHT OVER TO CT SCAN ON MONITOR WITH THIS RN, CXR COMPLETED IMMEDIATELY AFTER CT SCAN. EMS 20 G IN LAC, 20 G PLACED IN R AC. MEDICATED WITH A TOTAL OF 6MG ATIVAN FOR AGITATION AND HITTING ARMS AND LEGS AGAINST BED RAILINGS. TWO SKIN TEARS NOTED TO R LOWER ARM AND R HAND, DRESSED WITH BACITRACIN AND COBAN. SEIZURE PADS PLACED ON BED RAILS FOR PREVENTION OF FURTHER ACCIDENTAL SELF HARM.
--- NOTE | 2016-08-26 12:19 | CT SCAN REPORT ---
EXAMINATION: CT HEAD WITHOUT CONTRAST CLINICAL INFORMATION: Altered mental status. Rule out intracranial bleed. COMPARISON: CT head 08/20/16, 08/19/16, 08/05/16. TECHNIQUE: Contiguous axial imaging was performed from the skull base to vertex without intravenous administration of contrast. DLP: 1617.49 mGy-cm FINDINGS: Several of the images are degraded by motion artifacts, despite repeat attempts. Considering this limitation there is no evidence of acute intracranial hemorrhage, midline shift or mass effect. No abnormal extra-axial fluid collection is noted. Ham to white matter differentiation is preserved. The ventricles and sulci are normal. No definite evidence of acute territorial infarction. The osseous calvarium is intact. The calvarial soft tissues are unremarkable. Mild mucosal thickening is noted in the bilateral maxillary sinuses. Mastoid air cells are well aerated. IMPRESSION: Somewhat limited evaluation due to presence of motion artifacts. No evidence of acute intracranial hemorrhage.
--- NOTE | 2016-08-26 12:33 | NUR ---
SPOKE TO PT'S , IRISH, UPDATED ON POC AND PT STATUS, IRISH ALSO SPOKE WITH DR FOX FOR UPDATE
--- NOTE | 2016-08-26 12:33 | NUR ---
RT CALLED FOR ABG
--- NOTE | 2016-08-26 12:55 | RADIOLOGY REPORT ---
EXAMINATION: XR PORTABLE CHEST CLINICAL INFORMATION: Altered mental status. Rule out aspiration. COMPARISON: Chest x-ray of from 08/19/2016 and multiple previous chest x-rays dated back to 11/24/2012. CT chest of 12/22/2015. TECHNIQUE: Portable AP view of the chest was obtained. FINDINGS: The lungs are hypoexpanded. Diffuse reticular lung markings and hazy appearance of the lung parenchyma are chronic findings when compared to multiple prior studies and are related to underlying changes of bronchiectasis as well as mosaic attenuation seen on the previous CT. The appearance of the lung parenchyma is likely not significantly changed compared to previous study of 08/05/2016. Convincing evidence of superimposed new air space opacities. The cardiomediastinal silhouette is unchanged. No evidence of overt changes of pulmonary edema, significant pleural effusions or pneumothorax. Deformed appearance of the bilateral humeral heads is again noted. IMPRESSION: Chronic changes of bronchiectasis and mosaic attenuation, better seen on the CT scan. No convincing radiographic evidence of superimposed acute pulmonary process. If patient's clinical status permits, consider repeat chest x-ray in [place] and lateral views for better evaluation.
--- NOTE | 2016-08-26 13:30 | NUR ---
HOUSE STAFF AT BEDSIDE TO EVAL, PT ONLY RESPONSIVE TO VERBAL STIMULI
--- NOTE | 2016-08-26 14:53 | Admission Certification ---
Admission Certification Certification Statement - As attending physician, I certify that at the time of - admission, based on clinical presentation, severity of - symptoms, need for further diagnostic testing and - therapeutic interventions, and risk of adverse outcomes - without in-hospital treatment, in my clinical assessment, - this patient requires an acute hospital stay for a minimum - of two nights or longer. I have also considered psychsocial - factors such as support system, advanced age, financial - issues, cognitive issues, and failed out-patient treatments, - past re-admission history, safety of patient, and lack of - compliance as applicable. Specific rationale supporting this admission is: The patient is being admitted for possible substance abuse and overdose, followed by severe agitation requiring sedation. He has elevated WBCs and a possible underlying infection/aspiration. He requires CRCU monitoring.
--- NOTE | 2016-08-26 15:11 | NUR ---
CONDITION UNCHANGED, HEPARIN GIVEN PER ORDER, PT DID NOT RESPOND TO INJECTION. AWAITING BED ASSIGNMENT. VSS.
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
--- NOTE | 2016-08-26 16:02 | NUR ---
URINE TRIO SENT FROM [facility]. PT REMAINS STABLE, UNRESPONSIVE, OCC NONPURPOSEFUL MVMT ALL EXTREMETIES. AWAITING BED ASSIGNMENT, VSS.
--- NOTE | 2016-08-26 16:09 | NUR ---
PT HAS BED ASSINGMENT 108
--- NOTE | 2016-08-26 16:10 | NUR ---
CONDITION UNCHANGED. UNABLE TO GIVE PO MEDS AT THIS TIME DUE TO MENTAL STATUS.
--- NOTE | 2016-08-26 16:15 | NUR ---
HOUSE STAFF NOTIFIED OF PT'S INABILTIY TO TAKE PO MEDS.
--- NOTE | 2016-08-26 16:15 | NUR ---
CRITICAL TEST RESULTS [id number] TORSTEN CHAUDHARI 51 M TESTS AND RESULTS: RED CELL CASTS IN UA MICRO Results received and read back by: LAVONNE HAN Results received date and time: 08/26/16 1615 The following provider was notified of the results, and read the results back: ICU OPERATIONS AGENT Notified date and time: 08/26/16 at 1615
[2016-08-26 16:22] VITALS: BP 118/68
--- NOTE | 2016-08-26 17:11 | NUR ---
REPORT CALLED TO ED IN ICU, ROOM IS READY.
[2016-08-26 18:00] VITALS: BP 112/66
[2016-08-26 20:00] VITALS: BP 122/88
--- NOTE | 2016-08-26 20:00 | NUR ---
PATIENT UNRESPONSIVE TO VERBAL STIMULI. MONITOR SINUS RHYTHM AT RATE OF 85.MANUAL YS=259/88. BIPAP ON AT 30%,10/29 RATE OF 20. SAT=99%. [facility] CATH DRAINING CLEAR YELLOW URINE.
[2016-08-26 22:00] VITALS: BP 140/85
[2016-08-27] VITALS (10 sets, daily range): BP systolic 127–162; BP diastolic 60–90
--- NOTE | 2016-08-27 05:04 | NUR ---
PATIENT MORE ALERT THAN EARLIER. WILL FOLLOW COMMANDS.MOVING ALL EXTREMITIES. ATTEMPTING TO ANSWER QUESTIONS BUT DIFFICULT TO UNDERSTAND. BIPAP REMAINS AT 30%.TOLERATING WELL. O2 SAT=96%
[2016-08-27 05:18] LABS: ABSOLUTE BASOPHIL COUNT 0.1 /CUMM (0.0-0.2); ABSOLUTE EOSINOPHIL COUNT 0.4 /CUMM (0.0-0.7); ABSOLUTE GRANULOCYTE CT 9.4 /CUMM (1.4-6.5); ABSOLUTE LYMPH COUNT 2.6 /CUMM (1.2-3.4); ABSOLUTE MONOCYTE COUNT 1.1 /CUMM (0.10-0.60); BASOPHIL % 1.1 % (0.0-2.0); EOSINOPHIL % 2.8 % (0-5); GRANULOCYTE % 68.8 % (42.2-75.2); HEMATOCRIT 23.2 % (42-52); MEAN CORPUSCULAR HGB 25.1 PG (27.0-31.0); MEAN CORPUSCULAR HGB CONC 32.7 G/DL (33.0-37.0); MEAN CORPUSCULAR VOLUME 76.7 FL (80.0-94.0); PLATELET COUNT 389 /CUMM (130-400); RBC DISTRIBUTION WIDTH 21.5 % (11.5-14.5); RED BLOOD CELL CT 3.02 /CUMM (4.70-6.10); WHITE BLOOD CELL COUNT 13.6 /CUMM (4.8-10.8)
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
--- NOTE | 2016-08-27 13:14 | Cons- Nephrology ---
General Information and HPI Consulting Request Date of Consult: 08/27/16 Requested By: Fabio MEZA MD Reason for Consult: Nephrotic syndrome Source of Information: family, old records History of Present Illness: The patient is a 51-year-old man with known nephrotic syndrome (>9 g proteinuria per 24 hours). Prior renal biopsy showed only some hypertensive and diabetic changes (patient is not a known diabetic) although there was global foot process effacement. He is known to have chronic edema thought to be in large part due to his nephrosis but also possibly related to pulmonary hypertension. His history also includes interstitial lung disease/COPD following inhalation injury (he is also a 1 pack per day smoker), nonischemic cardiomyopathy (CHF clinic) hypertension, pulmonary hypertension and hospital admission for respiratory failure/ARDS. He now comes in with altered mental status which responded to Narcan. However, he then required further sedation with benzodiazepines because of severe agitation. His baseline serum creatinine ranges from 0.8-1.0 and he is currently at baseline. I am being asked to see him because of his history of proteinuria. Past medical history is as noted above. 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 Outpatient medications included Lasix 40 mg twice a day, losartan 50 mg daily, Actonel, medical marijuana, oxycodone, OxyContin, amitriptyline, baclofen, gabapentin, prednisone 10 mg twice a day, albuterol inhaler, Advair Diskus. 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 Allergies/Medications Allergies: Coded Allergies: Iodinated Contrast Media - Oral and (IODINATED CONTRAST MEDIA - IV DYE) (RED RASH TOLERATES WITH BENADRYL 01/12/16) Home Med List: Albuterol Sulfate 2.5 MG/3 ML (0.083 %) VIAL.NEB 1 Vial INH/[place] Q4-6H PRN COPD (Reported) Albuterol Sulfate (Albuterol Sulfate Hfa) 90 MCG HFA.AER.AD 2 PUFF INH Q4-6 PRN PRN SHORTNESS OF BREATH (Reported) 90 MCG PER PUFF Amitriptyline Hydrochloride (Amitriptyline HCl) 150 MG TAB 1 TAB PO DAILY NEUROPATHY (Reported) Aspirin (Ecotrin*) 81 MG TABLET.DR 1 TAB PO DAILY HEART/BLOOD (Reported) Baclofen 10 MG TABLET 1 TAB PO TID MUSCLE SPASMS (Reported) Fluticasone-Salmeterol (Advair 100-50 Diskus) 100 MCG-50 MCG/DOSE BLST.W.DEV 1 PUF INH BID COPD (Reported) Furosemide (Lasix) 40 MG TABLET 1 TAB PO BID DIURETIC (Reported) Gabapentin 800 MG TABLET 1 TAB PO 4 TIMES/DAY NEUROPATHY (Reported) Losartan Potassium (Cozaar) 50 MG TABLET 1 TAB PO DAILY BP (Reported) Oxycodone HCl 30 MG TABLET 1 TAB PO BID PRN Sever pain (Reported) Oxycodone HCl (Oxycontin) 60 MG TAB.ER.12H 1 TAB PO BID PAIN (Reported) Prednisone 10 MG TABLET 1 TAB PO DAILY COPD /INTERSTITIAL LUNG DISEAS AFTER FINISHING PREDNISONE TAPER. Risedronate Sodium (Actonel) 35 MG TABLET 1 TAB PO QMON BONE (Reported) Review of Systems Review of Systems Constitutional: Reports: no symptoms. EENTM: Reports: no symptoms. Cardiovascular: Reports: edema, peripheral edema. Respiratory: Reports: cough, orthopnea, short of breath. GI: Reports: no symptoms. Genitourinary: Reports: no symptoms. Musculoskeletal: Reports: joint pain, muscle pain. Skin: Reports: no symptoms. Neurological/Psychological: Reports: anxiety, confusion, emotional problems. Past History Travel History Traveled to [place] past 21 day No Medical History Neurological: peripheral neuropathy (critical illness neuropathy) EENT: NONE Cardiovascular: CHF, hypertension, hyperlipidemia, right-sided heart failure Respiratory: COPD, 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), ARDS and prolonged mechanical ventilation Gastrointestinal: NONE Hepatic: NONE Renal: chronic kidney disease Musculoskeletal: OSTEOPENIA 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 Psychiatric: NONE Endocrine: diabetes Blood Disorders: anemia Cancer(s): NONE CT TECHNICIAN/Reproductive: NONE Other Medical Hx: reactive adenopathy Surgical History Surgical History: VENOUS CLOSURE X 5 TO BLE BRONCHOSCOPY Family History Relations & Conditions If Any: SISTER FH: hypertension FATHER Cerebral hemorrhage Psychosocial History Where Do You Live? Home Who Do You Live With? spouse, child Services at Home: Oxygen Primary Language: Lebanese Smoking Status: Former Smoker ETOH Use: alcoholic Illicit Drug Use: UTD Living Will? yes Functional Ability ADLs Independent: dressing, eating, toileting, bathing. Ambulation: cane IADLs Needs Assist: food prep, medication admin. Exam & Diagnostic Data Vital Signs and I&O Vital Signs Date Time Temp Pulse Resp B/P Pulse O2 O2 Flow FiO2 Ox Delivery Rate 08/27 1026 96 Nasal 2.5L Cannula 08/27 0845 117 92 08/27 0618 110 98 08/27 0400 98.7 108 24 158/80 08/27 0400 97 BIPAP 30% 08/27 0315 104 97 08/27 0028 103 98 08/27 0000 98.7 98 20 162/90 08/27 0000 98.7 98 20 16290 97 BIPAP 30% 08/27 0000 97 BIPAP 30% 08/26 2208 91 96 08/26 2200 94 16 140/85 08/26 1999 98.0 85 19 122/88 08/26 1999 100 BIPAP 30% 08/26 1999 99 BIPAP 30% 08/26 1936 BIPAP 30% 08/26 1830 87 97 08/26 1800 96.6 86 16 112/66 08/26 1800 96.6 86 16 112/66 95 Nasal 2.5L Cannula 08/26 1622 96.4 89 20 118/68 08/26 1610 96.4 90 20 118/68 97 Nasal 2.5L Cannula 08/26 1510 96.9 93 20 124/62 97 Nasal 2.5L Cannula 08/26 1401 97.4 97 20 115/55 96 Nasal 4.0L Cannula 08/26 1325 96 Nasal 4.0L Cannula 08/26 1302 98.1 102 12 106/55 96 Nasal 4.0L Cannula Intake & Output 08/27 1600 08/27 0400 08/26 1600 08/26 0400 08/25 1600 08/25 0400 Intake Total 131 290 4649 Output Total 760 1395 Balance -520 -1275 1000 Intake, IV 970 954 3328 Output, Urine 760 1395 Patient 189 lb 190 lb 160 lb Weight Physical Exam: General: Well-developed, heavily sedated white male in NAD Skin: No rash or jaundice HEENT: Conjunctivae pink, sclerae anicteric, mucous membranes dry Neck: Without masses or thyromegaly, no supraclavicular or cervical adenopathy Chest: Scattered rhonchi and wheezes bilaterally Heart: Regular rate and rhythm without S3 or rub Abdomen: Soft and nontender without palpable masses or organomegaly Extremities: Without cyanosis; there is 1-2+ peripheral edema; dressing left lower extremity intact Neuro: Sedated, no focal findings, no asterixis or myoclonus Assessment/Plan Assessment/Recommendations Assessment: 51-year-old man with a background of known nephrotic syndrome which is likely on the basis of either minimal change disease or some other podocytopathy. Previous renal biopsy apparently showed only hypertensive and "diabetic" changes (he is not a diabetic). What would be unusual for minimal change disease, although not unheard of, is that he has not significantly responded to steroids nor has his nephrosis waxed and waned spontaneously. As outlined above, he has a number of significant comorbidities including a nonischemic cardiomyopathy and primary lung disease with pulmonary hypertension. He also has chronic pain and is now admitted with altered mental status that is likely on the basis of opioid overdose. Fortunately, renal function remains at baseline and relatively normal levels. Serum albumin is markedly depressed at 1.7. Recommendations: 1. 24-hour urine for protein and creatinine 2. Lipid profile 3. Continue outpatient diuretic and steroid regimen Thank you. Will follow along with you.
--- NOTE | 2016-08-27 16:08 | NUR ---
Robbie received this afternoon via electronic job order clerk. This patient is known to me from previous admission (with discharge last 08/22/16). Presentation this time is similar to last week, although some concern that the patient has expressed duicidal ideation. Case discussed with Dr. Alvarado who reports that psychiatry expects the patient to require an inpatient psychiatric hospitalization. Folow and collaborate with psychiatry and medicine.
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
[2016-08-28] VITALS (12 sets, daily range): BP systolic 123–149; BP diastolic 73–94
--- NOTE | 2016-08-28 | NUR ---
PATIENT WILL MOVE ALL EXTREMITIES TO COMMAND. CATHERINE. BIPAP AT 30%. SAT=95-97%. DRESSINGS BOTH LEGS DRY AND INTACT.PT POSITIONED SIDE TO SIDE,DTI PRESENT ON BUTTOCKS.
[2016-08-28 05:23] LABS: ABSOLUTE BASOPHIL COUNT 0.1 /CUMM (0.0-0.2); ABSOLUTE EOSINOPHIL COUNT 0.3 /CUMM (0.0-0.7); ABSOLUTE GRANULOCYTE CT 7.8 /CUMM (1.4-6.5); ABSOLUTE LYMPH COUNT 3.4 /CUMM (1.2-3.4); ABSOLUTE MONOCYTE COUNT 1.1 /CUMM (0.10-0.60); BASOPHIL % 0.7 % (0.0-2.0); GRANULOCYTE % 61.5 % (42.2-75.2); HEMATOCRIT 23.6 % (42-52); MEAN CORPUSCULAR HGB 24.8 PG (27.0-31.0); MEAN CORPUSCULAR HGB CONC 32.1 G/DL (33.0-37.0); MEAN CORPUSCULAR VOLUME 77.3 FL (80.0-94.0); MEAN PLATELET VOLUME 5.9 FL (7.4-10.4); PLATELET COUNT 425 /CUMM (130-400); RBC DISTRIBUTION WIDTH 21.2 % (11.5-14.5); RED BLOOD CELL CT 3.05 /CUMM (4.70-6.10); WHITE BLOOD CELL COUNT 12.6 /CUMM (4.8-10.8)
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
--- NOTE | 2016-08-28 19:41 | NUR ---
PATIENT DROWSY/AROUSABLE THROUGHOUT THE DAY. ORIENTED X2-3 WHEN AROUSED WORSE AFTER GETTING 10 AM MEDS INCLUDING ELAVIL [address] MG. [address] MATTSON. DOSE CHANGED TO 100 MG AND TO BE GIVEN AT 10 PM STARTING TOMORROW. NO PAIN MEDS GIVEN. PATIENT DENIED PAIN WHEN ASKED.
--- NOTE | 2016-08-28 20:37 | NUR ---
PT DROWSY, EASILY AROUSABLE TO VERBAL STIMULI. ORIENTED TO SELF, PLACE, KNOWS MONTH AND YEAR-UNSURE OF DAY OF WEEK AND DATE. PUPILS 5MM REACT BRISKLY TO LIGHT. FOLLOWS COMMANDS. C/O LEG AND FEET PAIN-SEE EMAR FOR PAIN MED ADMINISTRATION. EXP WHEEZES THOUGHOUT BILATERALLY. NO COUGH, SOB OR RESP DISTRESS NOTED AT PRESENT. SEE FLOW SHEET FOR VS, 02 SATS, I/O'S. MONITOR SHOWS NSR, NO ECTOPY NOTED AT PRESENT. BP STABLE AT PRESENT. ABD SOFT, NONTENDER, NONDISTENDED, POSITIVE BOWEL SOUNDS. YEE IN PLACE-DRAINING ADEQUATE AMT OF CLEAR YELLOW URINE. 1:1 SITTER AT BEDSIDE. UPPER CHEST WITH IRREGULAR PURPLE AREA, BELOW RT BREAST AREA WITH YELLOW SLOUGHING NOTED. DRESSINGS TO RT FOREARM, LT LEG AND RT MAYBERRY C/D/I AT PRESENT. DEEP TISSUE INJURY TO COCCYX NOTED. ON SIZEWISE BED
[2016-08-29] VITALS (10 sets, daily range): BP systolic 116–140; BP diastolic 64–86
[2016-08-29 05:13] LABS: ABSOLUTE BASOPHIL COUNT 0.1 /CUMM (0.0-0.2); ABSOLUTE EOSINOPHIL COUNT 0.4 /CUMM (0.0-0.7); ABSOLUTE GRANULOCYTE CT 5.9 /CUMM (1.4-6.5); ABSOLUTE LYMPH COUNT 3.5 /CUMM (1.2-3.4); ABSOLUTE MONOCYTE COUNT 0.7 /CUMM (0.10-0.60); BASOPHIL % 0.9 % (0.0-2.0); GRANULOCYTE % 55.4 % (42.2-75.2); HEMATOCRIT 20.4 % (42-52); MEAN CORPUSCULAR HGB 24.9 PG (27.0-31.0); MEAN CORPUSCULAR VOLUME 77.7 FL (80.0-94.0); MEAN PLATELET VOLUME 6.3 FL (7.4-10.4); PLATELET COUNT 371 /CUMM (130-400); RBC DISTRIBUTION WIDTH 21.3 % (11.5-14.5); RED BLOOD CELL CT 2.63 /CUMM (4.70-6.10); WHITE BLOOD CELL COUNT 10.6 /CUMM (4.8-10.8)
--- NOTE | 2016-08-29 07:34 | NUR ---
PT SLEPT MOST OF NIGHT. NO EVIDENCE OF WITHDRAWL THOUGHOUT SHIFT. CIWA-2 FOR SHIFT. FLAT AFFECT-BUT ORIENTED TO SELF, PLACE, MONTH AND YEAR. PT APPRORATE AND COOPERATIVE WITH CARE. 1:1 SITTER REMAINS AT BEDSIDE. 1 UNIT OF PRBC ORDERED FOR H+H-6.5 AND 20.4-WILL GIVE WHEN RECEIVE FROM BLOOD BANK. NO SOB OR RESP DISTRESS NOTED THOUGHOUT SHIFT. NO OTHER CHANGE IN PT ASSESSMENTS THOUGHOUT SHIFT
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
[2016-08-29 15:06] LABS: ABSOLUTE BASOPHIL COUNT 0.2 /CUMM (0.0-0.2); ABSOLUTE EOSINOPHIL COUNT 0.1 /CUMM (0.0-0.7); ABSOLUTE GRANULOCYTE CT 8.6 /CUMM (1.4-6.5); ABSOLUTE LYMPH COUNT 1.1 /CUMM (1.2-3.4); ABSOLUTE MONOCYTE COUNT 0.2 /CUMM (0.10-0.60); BASOPHIL % 1.7 % (0.0-2.0); EOSINOPHIL % 1.1 % (0-5); HEMATOCRIT 24.8 % (42-52); MEAN CORPUSCULAR HGB 24.7 PG (27.0-31.0); MEAN CORPUSCULAR HGB CONC 31.8 G/DL (33.0-37.0); MEAN CORPUSCULAR VOLUME 77.6 FL (80.0-94.0); MEAN PLATELET VOLUME 6.2 FL (7.4-10.4); PLATELET COUNT 394 /CUMM (130-400); RBC DISTRIBUTION WIDTH 20.3 % (11.5-14.5); WHITE BLOOD CELL COUNT 10.1 /CUMM (4.8-10.8)
[2016-08-29 15:22] LABS: GRANULOCYTE % 85.2 % (42.2-75.2)
--- NOTE | 2016-08-29 17:55 | NUR ---
RECEIVED PATIENT AT 0800, A&0X3, CIWA-0-2 MORE ALERT AND APPROPRIATE TODAY THAN YESTERDAY. VITALS STABLE. ON 2.5L NASAL CANNULA WHICH HE IS O2 DEPENDENT ON. 1 UNIT OF PRBC'S GIVEN FOR H/H OF 01/04 WITH REPEAT 7.9/24.9. PT CONSULT PLACED AND PATIENT TO GET OOB TO CHAIR TOMORROW. TOLERATED REGULAR DIET WELL TODAY. PATIENT'S PAIN MEDS RESTARTED AT THE HALF DOSE HE TAKES AT HOME AND TO BE INCREASED. 1:1 SITTER STILL PER PSYCH WHO CAME TO VISIT AGAIN TODAY. SILVADENE ORDERED AND APPLIED TO TOBIN TO CHEST. OTHER DRESSINGS ALSO DONE DAILY PER WOUND RN'S ORDER. PATIENT DOWNGRADED TO TELE AROUND 11 AM TO BE BE TRANSFERRED TO 172
[2016-08-30 00:04] VITALS: BP 122/84
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
[2016-08-30 08:00] VITALS: BP 124/80
[2016-08-30 08:13] VITALS: BP 124/80
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
[2016-08-30] MEDS ORDERED: FERROUS SULFAT325 M2 PO (09:20)
[2016-08-30 10:00] LABS: ABSOLUTE BASOPHIL COUNT 0.1 /CUMM (0.0-0.2); ABSOLUTE EOSINOPHIL COUNT 0.4 /CUMM (0.0-0.7); ABSOLUTE GRANULOCYTE CT 7.9 /CUMM (1.4-6.5); ABSOLUTE LYMPH COUNT 3.3 /CUMM (1.2-3.4); BASOPHIL % 0.9 % (0.0-2.0); EOSINOPHIL % 3.3 % (0-5); GRANULOCYTE % 62.5 % (42.2-75.2); HEMATOCRIT 25.7 % (42-52); MEAN CORPUSCULAR HGB 25.1 PG (27.0-31.0); MEAN CORPUSCULAR HGB CONC 32.3 G/DL (33.0-37.0); MEAN CORPUSCULAR VOLUME 77.8 FL (80.0-94.0); MEAN PLATELET VOLUME 6.1 FL (7.4-10.4); PLATELET COUNT 391 /CUMM (130-400); RBC DISTRIBUTION WIDTH 20.7 % (11.5-14.5); WHITE BLOOD CELL COUNT 12.7 /CUMM (4.8-10.8)
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
[2016-08-30] MEDS ORDERED: ROXICODONE30 M1 PO (12:08)
[2016-08-30] MEDS ORDERED: OXYCONTIN15 M1 PO (12:08)
[2016-08-30 15:33] VITALS: BP 148/78
--- NOTE | 2016-08-30 15:37 | Event Note ---
Event Note Event Note: In-patient [facility] transfer was declined by [facility] for following reasons: 1) The fact that he recently recieved a blood transfusion. 2) His current respiratory status and dependence on oxygen and BIPAP. Keeping in mind patient past admissions for unresponsiveness multiple times, discharging patient home at this time is for sure unsafe, we will thus continue to monitor him in the hospital, will continue one to one sitter.
[2016-08-30 23:29] VITALS: BP 134/82
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
[2016-08-31 08:11] VITALS: BP 140/80
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
[2016-08-31 16:10] VITALS: BP 148/72
--- NOTE | 2016-08-31 17:04 | NUR ---
Following patients progress. Aware of psychiatry's efforts to find an inpatient psychiatric bed. Spoke briefly with psychiatric BREAKDOWN PERSON today; he is aware that while an active inpatient psychiatric bed search is underway, it will be difficult to effect another plan. Unless the patient can be declared to not have capacity, I do not believe that he will allow either case management or myself to assist with aftercare planning. Will collaborate with case management and psychiatry and assist as able.
[2016-08-31 22:26] VITALS: BP 140/70
[2016-09-01] VITALS (7 sets, daily range): BP systolic 130–142; BP diastolic 54–80
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
[2016-09-01 07:45] LABS: ABSOLUTE BASOPHIL COUNT 0.1 /CUMM (0.0-0.2); ABSOLUTE EOSINOPHIL COUNT 0.6 /CUMM (0.0-0.7); BASOPHIL % 0.9 % (0.0-2.0); HEMATOCRIT 21.9 % (42-52)
[2016-09-01 08:14] LABS: ABSOLUTE GRANULOCYTE CT 7.9 /CUMM (1.4-6.5); ABSOLUTE LYMPH COUNT 4.9 /CUMM (1.2-3.4); ABSOLUTE MONOCYTE COUNT 1.2 /CUMM (0.10-0.60); EOSINOPHIL % 3.8 % (0-5); GRANULOCYTE % 53.9 % (42.2-75.2); MEAN CORPUSCULAR HGB 24.9 PG (27.0-31.0); MEAN CORPUSCULAR VOLUME 77.8 FL (80.0-94.0); MEAN PLATELET VOLUME 6.3 FL (7.4-10.4); PLATELET COUNT 439 /CUMM (130-400); RBC DISTRIBUTION WIDTH 19.4 % (11.5-14.5); RED BLOOD CELL CT 2.81 /CUMM (4.70-6.10); WHITE BLOOD CELL COUNT 14.7 /CUMM (4.8-10.8)
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
--- NOTE | 2016-09-01 10:01 | PN- Psychiatry ---
Assessment/Plan Impression: We visited the patient on 08/30/2016, and our note for that visit was placed in the "pre-in" account for the proposed transfer to [facility] inpatient psychiatry. This transfer did not happen, and that account was deleted, including our note for that day. At that time, the patient was denying suicidal or homocidal ideation, and had no psychotic symptoms or signs. Suggestion: Francisco Arambula APRN, pager [phone]. Subjective Subjective: .
--- NOTE | 2016-09-01 10:31 | PN- Psychiatry ---
See Addendum Assessment/Plan Impression: We visited the patient today, 09/01/2016, at 0945 in room 172. The patient reports that last summer he had an event at home when he became unresponsive at home, came to the hospital, and when the event did not recur, he was sent home. Our suspicion is that this was related to opioid medication, either overuse or a change in metabolism, possibly recurring for these last two admissions. At the last discharge, our plan included pouring of his medications by VNA, but the patient would not allow them into the home. We had also suggested that the opiates/opioids be kept in a locked box. The spouse reports that insurance would not pay for the lockbox. I made her aware that these can be purchased at a hardware store, such as [employer], for approximately $20, which should be affordable. As noted before, the spouse found a vial of "medication" that she did not know about, so the patient may have medications hidden away that he uses when she is not at home. In fact, she notes that these "events," where he is found unresponsive, seem to occur when she is our of the house at work. We suggest that a family meeting be convened to arrive at a safe discharge plan. The patient is not suicidal, not delirious, not psychotic, and has capacity to make decisions about his health care. The patient does not currently need a 1:1 safety monitor. I have asked to have this discontinued. I have removed the PEC from the chart, as it no longer applies. The patient is here in the hospital voluntarily. Medical team is concerned about the patient's hematocrit/hemoglobin, which have both dropped again, the hemoglobin to a critical level. They intend to ask GI to look in on the patient. The patient has been followed by Dr. Dailey for hematology since last summer. We will be happy to assist with a planning meeting, hopefully in concert with the family. Suggestion: 1. The patient has made an oral safety contract and promises to remain safe in the hospital and at home, and promises to not leave the hospital until his treatment is finished. 2. The patient does not need a 1:1 safety monitor for psychiatric reasons. Nursing may have other reasons for keeping this in place. 3. Please ask case management and social work to assist with organizing a family meeting with the spouse so that we can all arrive at a safe plan for discharge. This may include: a. A home care music therapist when the spouse is not at home. b. Application for Medicaid so that home nursing med administration may be possible. c. VNA, at least weekly, and hopefully, daily, for medication monitoring and administration. d. Securing of any medications inthe home that patient may have. e. Inclusion of the patient's pain dairy frozen manager in this plan. We will continue to follow along with you. Francisco Arambula APRN, pager 100. Subjective Subjective: Patient seen today at 0945. Alert and oriented. Denies SI/HI. Denies AVH, and presents no jodie delusions. Thought processes are logical and linear. Folstein/MMSE result today is 27/30, suggestive of no cognitive impairment: one error in orientation (Off by one day) and 2 errors in Serial 7s (Also 2 errors in spelling WORLD backward). This is in the chart.
[2016-09-01 16:47] LABS: ABSOLUTE BASOPHIL COUNT 0.1 /CUMM (0.0-0.2); ABSOLUTE EOSINOPHIL COUNT 0.3 /CUMM (0.0-0.7); ABSOLUTE GRANULOCYTE CT 9.7 /CUMM (1.4-6.5); ABSOLUTE LYMPH COUNT 1.4 /CUMM (1.2-3.4); ABSOLUTE MONOCYTE COUNT 0.3 /CUMM (0.10-0.60); EOSINOPHIL % 2.9 % (0-5); MEAN CORPUSCULAR HGB 25.4 PG (27.0-31.0); MEAN CORPUSCULAR HGB CONC 32.5 G/DL (33.0-37.0); MEAN CORPUSCULAR VOLUME 78.2 FL (80.0-94.0); MEAN PLATELET VOLUME 6.4 FL (7.4-10.4); PLATELET COUNT 383 /CUMM (130-400); RBC DISTRIBUTION WIDTH 19.9 % (11.5-14.5); WHITE BLOOD CELL COUNT 11.9 /CUMM (4.8-10.8)
[2016-09-01 17:06] LABS: GRANULOCYTE % 81.7 % (42.2-75.2); HEMATOCRIT 27.5 % (42-52); RED BLOOD CELL CT 3.52 /CUMM (4.70-6.10)
--- NOTE | 2016-09-01 22:22 | NUR ---
RECEIVED PT FROM AT 2100. A/O X3. VSS. ON 2.5L O2 NC. PLACED ON CONTACT PRECAUTIONS FOR H/O MRSA. DRSG TO CHEST, BLE CDI. RFA HEALING SKIN TEAR TEJAL. SKIN CARE PROVIDED. A&D APPLIED TO BOTTOM. HEALING ULCERS TO BOTTOM COOLER SERVICER. BED ALARM INITIATED. SIZEWISE IN PLACE. PT S/P BLOOD TRANSFUSION TODAY. LATEST H/H 8.9/27.5. BEDTIME MEDICATIONS ADMINISTERED. WILL CONTINUE TO MONITOR.
[2016-09-02 00:24] VITALS: BP 150/80
[2016-09-02 06:52] VITALS: BP 160/98
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
[2016-09-02 08:07] LABS: ABSOLUTE BASOPHIL COUNT 0.1 /CUMM (0.0-0.2); ABSOLUTE EOSINOPHIL COUNT 0.5 /CUMM (0.0-0.7); ABSOLUTE GRANULOCYTE CT 7.2 /CUMM (1.4-6.5); ABSOLUTE LYMPH COUNT 3.8 /CUMM (1.2-3.4); BASOPHIL % 1.2 % (0.0-2.0); EOSINOPHIL % 4.3 % (0-5); HEMATOCRIT 28.8 % (42-52); MEAN CORPUSCULAR HGB 25.6 PG (27.0-31.0); MEAN CORPUSCULAR HGB CONC 32.2 G/DL (33.0-37.0); MEAN CORPUSCULAR VOLUME 79.4 FL (80.0-94.0); MEAN PLATELET VOLUME 6.4 FL (7.4-10.4); PLATELET COUNT 444 /CUMM (130-400); RBC DISTRIBUTION WIDTH 19.6 % (11.5-14.5); RED BLOOD CELL CT 3.63 /CUMM (4.70-6.10); WHITE BLOOD CELL COUNT 12.7 /CUMM (4.8-10.8)
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
--- NOTE | 2016-09-02 11:35 | PN- Psychiatry ---
See Addendum Assessment/Plan Impression: The patient is agreeable to having his medications managed by [facility] and his spouse , and promises to allow [facility] access to him at home. The patient denies taking extra medication before this admission, after being found lethargic and unresponsive. Today, he initially confused this admission with the prior admission where he reported taking a Valium he found. He denies having any other medications at home, not currently prescribed, that his does not know about. However, we suggest that a thorough search be conducted of the home, and other family members be enlisted in helping to prevent overdose on medications. With the patient's permission (HIPAA release form in the chart), I have contacted Dr. Aydin Henriquez, the patient's pain manager content, . I spoke with the secretary of state, Krissy, and informed her that the patient had had a lethargic and then unresponsive event at home, and that we were hoping for Dr. Henriquez's input for a safe discharge plan. I suggested that the MD consider dispensing the pain medications in small quantities. The patient denies a suicide attempt, and denies taking the prescibed medication other than how it is ordered. The spouse had been in control of his medications. We are expecting a return call from Dr. Henriquez. With the patient's permission (HIPAA release form in the chart), I have contacted Dr. Wisam Andino, the patient's PCP, . I spoke with the secretary of state, and informed her that the patient had had a lethargic and then unresponsive event at home, and that we had contacted Dr. Henriquez, the pain manager content, and wanted to make Dr. Andino aware of a suggested safe discharge plan. We expect a return call from Dr. Andino to discuss this more. Family meeting today with the spouse, Crystal. Suggestion: 1. The patient has made an oral safety contract and promises to remain safe in the hospital and at home, and promises to not leave the hospital until his treatment is finished. 2. Family meeting today at 2PM, so that we can all arrive at a safe plan for discharge. This may include: a. A trailers and motor homes salesperson when the spouse is not at home. b. Application for Medicaid so that home nursing med administration may be possible. c. [facility], at least weekly (Now), and hopefully, daily (After approved for Medicaid), for medication monitoring and administration. d. Securing of any medications in the home that patient may have forgotten or secreted. e. Inclusion of the patient's pain manager content and PCP in this plan. We will continue to follow along with you. Francisco Arambula APRN, pager [phone]. Subjective Subjective: We visited the patient today, 09/02/2016, at 1040 in room 215. He is calm, pleasant and conversational, in no apparent distress. A+OX4. Denies SI/HI. Denies depression or anxiety. Denies AVH; presents no jodie delusions. Thought processes are logical and linear. Insight into management of his chronic pain is now moderate. Objective Last 24 Hrs of Vital Signs/I&O Vital Signs Date Time Temp Pulse Resp B/P Pulse O2 O2 Flow FiO2 Ox Delivery Rate 09/02 0930 95 Nasal 2.5L Cannula 09/02 0652 97.5 91 20 160/98 98 CPAP 09/02 0212 93 98 09/02 0024 97.6 98 20 150/80 98 CPAP 09/02 0000 Nasal 2.5L Cannula 09/01 2247 99 09/01 2000 99.2 94 20 138/70 96 Nasal 2.5L Cannula 09/01 1935 97 Nasal 2.5L Cannula 09/01 1614 98.3 95 18 130/80 96 09/01 1600 Nasal 2.5L Cannula 09/01 1200 98.4 103 20 132/68 Intake & Output 09/02 1600 09/02 0800 09/02 0000 Intake Total 100 100 Output Total 1400 1700 Balance -1300 -1600 Intake, Oral 100 100 Output, Urine 1400 1700 Results Last 24 Hrs of Labs/Mics: Laboratory Tests 09/02 09/01 0705 1624 Hematology CBC w Diff NO MAN DIFF REQ NO MAN DIFF REQ WBC (4.8 - 10.8 /CUMM) 12.7 H 11.9 H RBC (4.70 - 6.10 /CUMM) 3.63 L 3.52 L Hgb (14.0 - 18.0 G/DL) 9.3 L 8.9 L Hct (42 - 52 %) 28.8 L 27.5 L MCV (80.0 - 94.0 FL) 79.4 L 78.2 L MCH (27.0 - 31.0 PG) 25.6 L 25.4 L RDW (11.5 - 14.5 %) 19.6 H 19.9 H Plt Count (130 - 400 /CUMM) 444 H 383 MPV (7.4 - 10.4 FL) 6.4 L 6.4 L Gran % (42.2 - 75.2 %) 57.0 81.7 H Lymphocytes % (20.5 - 51.1 %) 30.0 11.6 L Monocytes % (1.7 - 9.3 %) 7.5 2.8 Eosinophils % (0 - 5 %) 4.3 2.9 Basophils % (0.0 - 2.0 %) 1.2 1.0 Absolute Granulocytes (1.4 - 6.5 /CUMM) 7.2 H 9.7 H Absolute Lymphocytes (1.2 - 3.4 /CUMM) 3.8 H 1.4 Absolute Monocytes (0.10 - 0.60 /CUMM) 1.0 H 0.3 Absolute Eosinophils (0.0 - 0.7 /CUMM) 0.5 0.3 Absolute Basophils (0.0 - 0.2 /CUMM) 0.1 0.1 PUBS MCHC (33.0 - 37.0 G/DL) 32.2 L 32.5 L
[2016-09-02 14:29] VITALS: BP 120/70
--- NOTE | 2016-09-02 20:54 | NUR ---
DISCHARGE ORDER WAS PLACED EARLIER THAT STATED DISCHARGE AFTER ECHO. PT WAS DENIED SERVICES FOR HOME. DR DELANEY SAID PT SHOULD BE DISCHARGED. FAMILY WAS HESITANT STATING THEY NEEEDED SOMEONE CHECKING ON PT. PT HAS CHANGED DSG ON LEG BEFORE AND CHEST. GOLDIE MURILLO CHECKING WITH MD TO FIND OUT IF PT IS SAFE TO GO HOME.CONTINUE TO MONITOR.
--- NOTE | 2016-09-02 21:39 | Event Note ---
Event Note Event Note: I talked to the Miss Saleem Rojas, according to her, she is ready to take her to home without any health services and will talk to Jenni, community case manager and Dr. Andino in morning for guidance and help in regards to home health care nurse.
--- NOTE | 2016-09-02 23:00 | NUR ---
PT'S HAS CONCERNS R/T HOME HEALTH SERVICES. PER PT'S IRISH, PT'S INSURANCE [employer] NEVER DENIED COVERAGE FOR HOME SERVICES. SHE FURTHER ADDED THAT [facility] HAD NO VISITING NURSE TO SEND TOWARDS THEIR [place] AND HAD SUGGESTED ANOTHER HOME HEALTH CARE AGENCY TO BE CONTACTED. PT'S SAID THAT SHE WILL CONTACT SQU[facility] TOMORROW AND GET THIS WHOLE SITUATION SORTED OUT. SHE WANTED PT TO BE D/C'D TODAY AND TAKE HIM HOME. DR PENALOZA IN THE ROOM TO ADDRESS PT AND HIS 'S CONCERNS. PT'S DRESSINGS CHANGED. IV D/C'D. BEDTIME MEDS ADMINISTERED. VSS. PT AFEBRILE. PAIN MED GIVEN. PT SWITCHED TO HOME O2 TANK AT 2.5L O2 NC. PT'S HOME MEDICATION RISEDRONATE GIVEN TO PT'S REQUESTED AFTER CONSULTING WITH PHARMACIST YOKASTA. DIRECTOR SKILLS REQUESTED TO GET A WHEELCHAIR. ALL PAPERWORK GIVEN TO THE PT.
--- NOTE | 2016-09-03 07:53 | NUR ---
Late Entry: Aware of patients discharge home yesterday. Participated in team meeting yesterday with MD, psychiatry staff, mattress spring encaser and patients and sister. Discussed measures needing to be put into place to effect a safe plan for this patient to succeed at home. Psychiatry representatives had been able to make contact with both the patients pain livestock farm manager and PCP. Pain livestock farm manager is willing to decrease amount of medications dispensed with each prescription to reduce the chance of misuse. risk compliance manager was initially able to secure a home care agency to start services, but later in day yesterday, agency called to report that they would be unable to accept case. CM still looking for agency to accept case. Psychiatry also would like patient to come to outpatient services, but patient had not agreed to this recommendation. Should he choose to initiate therapy, psychiatry will be able to accomodate him. Of potential concern is the safety of the patients 3 children, 2 under the age of 16. I have strongly recommended to the patients Crystal that she make accomodations so the kids are not left alone with the patient. She verbalizes understanding.
[2016-12-07] MEDS ORDERED: PREDNISONE10 M2 PO (15:53)
[2016-12-07] MEDS ORDERED: FOSAMAX70 M1 PO (15:53)
[2016-12-07] MEDS ORDERED: AMITRIPTYLINE150 M2 PO (15:54)
[2016-12-07] MEDS ORDERED: METOLAZONE (15:55)
[2016-12-07] MEDS ORDERED: FUROSEMIDE40 M1 PO (15:56)
[2016-12-07] MEDS ORDERED: OXYCONTIN40 M1 PO (15:56)
[2016-12-07] MEDS ORDERED: NEURONTIN800 M2 PO (15:56)
[2016-12-07] MEDS ORDERED: OXYCODONE HCL30 M1 PO (15:56)
== END 2016-09-02 22:40 | DRG 917 ==
LOC: ENRESERVDT → ENRESERVTM → ERH 10:17 → CRI 13:29 → 1NO 13:29 → ENPENDDIS 13:29 → 2NA 13:29 → ERHI 13:29 → CRI 17:18 → 1NO 08-29 18:52 → 2NA 09-01 20:45
PROVIDERS: Emergency Medicine; Internal Medicine Cardiovascular Disease; Radiology Diagnostic Radiology; Student in an Organized Health Care Education/Training Program; ADMIT Internal Medicine Pulmonary Disease
PROC: 5A09357 Assistance with Respiratory Ventilation, Less than 24 Consecutive Hours, Continuous Positive Airway Pressure (ICD-10-PCS; principal; 2016-08-26)
DX: T40.2X4A Poisoning by other opioids, undetermined, initial encounter (principal); G92 Toxic encephalopathy; J96.21 Acute and chronic respiratory failure with hypoxia; J69.0 Pneumonitis due to inhalation of food and vomit; T21.01XA Burn of unspecified degree of chest wall, initial encounter; J70.8 Respiratory conditions due to other specified external agents; I50.32 Chronic diastolic (congestive) heart failure; N03.9 Chronic nephritic syndrome with unspecified morphologic changes; F11.20 Opioid dependence, uncomplicated; I13.0 Hypertensive heart and chronic kidney disease with heart failure and stage 1 through stage 4 chronic kidney disease, or unspecified chronic kidney disease; I50.30 Unspecified diastolic (congestive) heart failure; N17.9 Acute kidney failure, unspecified; T40.7X4A Poisoning by cannabis (derivatives), undetermined, initial encounter; R41.82 Altered mental status, unspecified; J44.9 Chronic obstructive pulmonary disease, unspecified; Z99.81 Dependence on supplemental oxygen; M85.80 Other specified disorders of bone density and structure, unspecified site; E78.5 Hyperlipidemia, unspecified; E11.22 Type 2 diabetes mellitus with diabetic chronic kidney disease; N18.9 Chronic kidney disease, unspecified; G62.9 Polyneuropathy, unspecified; Z87.891 Personal history of nicotine dependence; X30.XXXA Exposure to excessive natural heat, initial encounter; Y93.9 Activity, unspecified; Y92.9 Unspecified place or not applicable
CPT/HCPCS: 1NP; 2NAP; 82570; 84156; CCU; 36415; 80307; 81001; 82436; 83010; 86920; 87040; 87070; 87071; 87086; 93005; 93010; 96374; 96375; 96376; 99232; 99291; G0480; J0131; J1644; J1940; J7042; J7060; J7512; P9016

== ENCOUNTER 2016-09-04 13:02 | Inpatient (IN) | payer OTHER ==
[~2016-09-04] VITALS: Ht 177.8 cm; Wt 80.0 kg
[~2016-09-04 13:02] MED LIST changes: +FERROUS SULFAT325 M2 PO; +OXYCONTIN15 M1 PO; +ROXICODONE30 M1 PO
--- NOTE | 2016-09-04 13:26 | ED AMS/SEIZURE/WEAK/DIZZY ---
History of Present Illness General Chief Complaint: Altered Mental Status Stated Complaint: BIBA ALTERED MENTAL STATUS Source: patient, family, old records, EMS Exam Limitations: no limitations Vital Signs & Intake/Output Vital Signs & Intake/Output Vital Signs Date Time Temp Pulse Resp B/P Pulse O2 O2 Flow FiO2 Ox Delivery Rate 09/04 1444 96.8 102 16 131/61 98 Nasal 2.5L Cannula 09/04 1353 Nasal 2.5L Cannula 09/04 1310 97 Nasal 2.5L Cannula 09/04 1308 96.9 98 12 116/68 97 Nasal 2.5L Cannula Allergies Coded Allergies: Iodinated Contrast Media - Oral and (IODINATED CONTRAST MEDIA - IV DYE) (RED RASH TOLERATES WITH BENADRYL 01/12/16) Reconcile Medications Albuterol Sulfate 2.5 MG/3 ML (0.083 %) VIAL.NEB 1 Vial INH/[place]ISON Q4-6H PRN COPD (Reported) Albuterol Sulfate (Proair Hfa) 90 MCG HFA.AER.AD 2 PUF INH Q4-6 PRN PRN BREATHING PROBLEMS (Reported) Amitriptyline HCl 150 MG TABLET 1 TAB PO QPM NEUROPATHY (Reported) Aspirin (Ecotrin*) 81 MG TABLET.DR 1 TAB PO DAILY HEART/BLOOD (Reported) Baclofen 10 MG TABLET 1 TAB PO TID MUSCLE SPASMS (Reported) Ferrous Sulfate 325 MG (65 MG IRON) TABLET 1 TAB PO DAILY ANEMIA (Reported) Fluticasone-Salmeterol (Advair 100-50 Diskus) 100 MCG-50 MCG/DOSE BLST.W.DEV 1 PUF INH BID COPD (Reported) Furosemide (Lasix) 40 MG TABLET 1 TAB PO BID DIURETIC (Reported) Gabapentin (Neurontin) 800 MG TABLET 1 TAB PO 4 TIMES/DAY NEUROPATHY ( Reported) Losartan Potassium (Cozaar) 50 MG TABLET 1 TAB PO DAILY BP (Reported) Oxycodone HCl (Oxycontin) 15 MG TAB.ER.12H 1 TAB PO Q12 PRN neuropathies Oxycodone HCl (Roxicodone) 30 MG TABLET 1 TAB PO Q12 PRN neuropathies Prednisone 10 MG TABLET 1 TAB PO DAILY COPD /INTERSTITIAL LUNG DISEAS AFTER FINISHING PREDNISONE TAPER. Risedronate Sodium (Actonel) 35 MG TABLET 1 TAB PO QMON BONE (Reported) Triage Note: BIBA FROM HOME FOR AMS. PER EMS, PT'S AND VISITING NURSE SAW HE WAS "NODDING OFF" DURING MEDICATION ADMINISTRATION. EMS REPORTS HX OF THE SAME WITH POSITIVE RESPONSE TO NARCAN ADMINISTRATION. UPON ARRIVAL PT LETHARGIC AND ORIENTED X3, EYES CLOSE EASILY BUT EASILY AROUSABLE. PT UNABLE TO RECALL WHY HE RECEIVES VISITING NURSING SERVICES AT HOME Triage Nurses Notes Reviewed? yes Onset: Abrupt Duration: hour(s):, constant Timing: recent history Severity: moderate, severe No Modifying Factors: none HPI: 51-year-old male brought into the emergency room for altered mental status. Patient has lots of chronic medical problems and is on narcotics at home. Patient was just seen here recently the other day and had been admitted and was discharged. It was determined that the patient was overmedicated and his narcotics are decreased. reports that this morning patient appeared to be confused and sedated and was altered. She had given him his normal Roxicodone last night. She called the nurse who came in to evaluate him and he seemed to perk up and was more alert and was requesting his other pain medication. Patient got his pain medication and then became confused and altered again. has high concern that the patient may be taking pain medication that is not prescribed to him. (TASHA HOPKINS) Past History Travel History Traveled to [place] past 21 day No Medical History Any Pertinent Medical History? 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 Psychiatric: NONE Endocrine: diabetes Blood Disorders: anemia Cancer(s): NONE LAND TITLE EXAMINER/Reproductive: NONE Other Medical Hx: reactive adenopathy History of MRSA: Yes History of VRE: No History of CDIFF: No Surgical History Surgical History: VENOUS CLOSURE X 5 TO BLE BRONCHOSCOPY Psychosocial History Who do you live with Significant Other Services at Home Oxygen What is your primary language [place] Tobacco Use: Quit >30 days ago ETOH Use: occasional use Illicit Drug Use: denies illicit drug use Family History Family History, If Any: SISTER FH: hypertension FATHER Cerebral hemorrhage Hx Contributory? No (TASHA HOPKINS) Review of Systems Review of Systems Constitutional: Reports: no symptoms. EENTM: Reports: no symptoms. Respiratory: Reports: see HPI. Cardiovascular: Reports: no symptoms. GI: Reports: no symptoms. Genitourinary: Reports: no symptoms. Musculoskeletal: Reports: no symptoms. Skin: Reports: no symptoms. Neurological/Psychological: Reports: see HPI. Hematologic/Endocrine: Reports: no symptoms. Immunologic/Allergic: Reports: no symptoms. All Other Systems: Reviewed and Negative (TASHA HOPKINS) Physical Exam Physical Exam General Appearance: sedated, lethargic, intoxicated Head: atraumatic, normal appearance Eyes: Bilateral: normal appearance, EOMI. Ears, Nose, Throat: normal pharynx, normal ENT inspection, hearing grossly normal Neck: normal inspection Respiratory: normal breath sounds, no respiratory distress Cardiovascular: regular rate/rhythm Back: normal inspection Extremities: normal range of motion Neurologic/Psych: awake, alert, normal gait, oriented x2 Skin: intact, normal color Core Measures ACS in differential dx? No CVA/TIA Diagnosis: No Severe Sepsis Present: No Septic Shock Present: No (TASHA HOPKINS) Progress Differential Diagnosis: arrythmia, alcohol intoxication, CVA/stroke, dehydration , drug intoxication, encephalitis, GI bleed, hypoglycemia, hypoxia, intracranial Hem., intracranial mass/tumor, meningitis, migraine PETERSON, multiple sclerosis, pneumonia, postural hypotension, presyncope, post-traumatic vertigo, sepsis, seizure disorder, subarachnoid Hem., vertebrobasilar insuff Plan of Care: Orders Procedure Date/time Status Nothing by Mouth 09/05 B Active Admit to inpatient 09/04 1634 Active Pathway - chart 09/04 1629 Active House Staff 09/04 1629 Active Patient Data 09/04 1629 Active Code Status 09/04 1629 Active Patient Data 09/04 1605 Active URINE DRUGS OF ABUSE 09/04 1325 Complete URINALYSIS 09/04 1325 Complete TROPONIN LEVEL 09/04 1325 Complete COMPREHENSIVE METABOLIC PANEL 09/04 1325 Complete CBC WITHOUT DIFFERENTIAL 09/04 1325 Complete EKG 09/04 1325 Active Current Medications Sig/Silvana Start time Last Medication Dose Stop Time Status Admin Heparin Sodium 5,000 UNIT Q8 09/04 2200 AC (Porcine) Laboratory Tests 09/04/16 1402: Anion Gap 6, Estimated GFR 59 L, BUN/Creatinine Ratio 17.7, Glucose 96, Calcium 7.7 L, Total Bilirubin 0.2, AST 25, ALT 29, Alkaline Phosphatase 193 H, Troponin I < 0.01, Total Protein 5.5 L, Albumin 2.0 L, Globulin 3.5, Albumin/ Globulin Ratio 0.6 L, CBC w Diff MAN DIFF ORDERED, RBC 3.68 L, MCV 79.4 L, MCH 26.0 L, RDW 20.4 H, MPV 6.2 L, Gran % 78.3 H, Lymphocytes % 11.5 L, Monocytes % 4.4, Eosinophils % 5.1 H, Basophils % 0.7, Absolute Granulocytes 14.4 H, Segmented Neutrophils 76 H, Band Neutrophils 2, Absolute Lymphocytes 2.1, Lymphocytes 11 L, Monocytes 5, Absolute Monocytes 0.8 H, Eosinophils 5, Absolute Eosinophils 0.9, Absolute Basophils 0.1, Metamyelocytes 1, Platelet Estimate INCREASED, Anisocytosis 1+, PUBS MCHC 32.7 L 09/04/16 1346: Urine Opiates Screen 919.00, Methadone Screen 97, Barbiturate Screen < 60, Ur Phencyclidine Scrn < 6.00, Amphetamines Screen < 100, U Benzodiazepines Scrn 93, Urine Cocaine Screen < 50, Urine Cannabis Screen 40.40, Urinalysis MANY H, Urine Color YEL, Urine Clarity HAZY H, Urine pH 6.0, Ur Specific [place] 1.025, Urine Protein >=300 H, Urine Ketones NEG, Urine Nitrite NEG, Urine Bilirubin NEG@ICTO, Urine Urobilinogen 0.2, Ur Leukocyte Esterase NEG, Ur Microscopic SEDIMENT EXAMINED, Urine RBC 1-3, Urine WBC 3-5 H, Ur Epithelial Cells FEW, Hyaline Casts 25-50 H, Urine Hemoglobin TRACE-INTACT H, Urine Glucose 100 H Diagnostic Imaging: Viewed by Me: Radiology Read. Discussed w/RAD: Radiology Read. Radiology Impression: SERVICE DATE: 09/04/16 EXAM TYPE: RAD - XRY- PORTABLE CHEST XRAY EXAMINATION: XR PORTABLE CHEST CLINICAL INFORMATION: Shortness of breath. Altered mental status. COMPARISON: Chest radiography 2016. TECHNIQUE: Portable AP view of the chest was obtained. FINDINGS: The lungs are well expanded. There is diffuse interstitial prominence and bronchovascular prominence. Left lower lung opacification and thickening of the left lateral pleural stripe is increased in conspicuity compared to prior exam, which may at least in part reflect pleural fluid. No pneumothorax. Mediastinal contours are unchanged. No acute osseous abnormalities. IMPRESSION: Left basilar opacification with thickening of the lateral pleural stripe may represent pleural fluid and adjacent consolidation. Please correlate for any clinical symptoms of left lower lobe pneumonia. Persistent, unchanged interstitial prominence and bronchovascular prominence. DICTATED BY: ABBIE GÓMEZ MD DATE/ TIME DICTATED:09/04/161408 HOT MAN:LAURA DATE/TIME TRANSCRIBED: 09/04/161408 Initial ED EKG: normal intervals, normal sinus rhythm, rate (94), RBBB Prior EKG: unchanged (TASHA HOPKINS) Departure Departure Disposition: STILL A PATIENT Condition: Stable Clinical Impression Primary Impression: Acute kidney injury Secondary Impressions: Aspiration pneumonia, Leukocytosis, Overdose Referrals: YULI FRAZIER MD (PCP/Family) Departure Forms: Customer Survey General Discharge Information Admission Note Spoke With: NIC MIRELES MD Documentation of Exam: Documentation of any treatments & extenuating circumstances including Concerns Regarding Discharge (functional status, medication knowledge or non-compliance, living conditions, etc.) that warrant an admission rather than observation: Patient will require gentle IV hydration for acute kidney injury and history of congestive heart failure. Possibly more Narcan. Repeat labs. IV antibiotics for possible aspiration pneumonia. Pain management consult. Pulmonary consult. Case management consult. High risk. Patient would do poorly as an outpatient. Increasing white count. (TASHA HOPKINS) PA/ENVIRONMENTAL ENGINEER SCIENTIST Co-Sign Statement Statement: ED Attending supervision documentation- [x] I saw and evaluated the patient. I have also reviewed all the pertinent lab results and diagnostic results. I agree with the findings and the plan of care as documented in the PA's/ENVIRONMENTAL ENGINEER SCIENTIST's documentation. [] I have reviewed the ED Record and agree with the PA's/ENVIRONMENTAL ENGINEER SCIENTIST's documentation. [] Additions or exceptions (if any) to the PAs/ENVIRONMENTAL ENGINEER SCIENTIST's note and plan are summarized below: [] (BRIAN HULL,LI Lazcano) Critical Care Note Critical Care Note Critical Care Time: 30-74 min (TASHA HOPKINS)
[2016-09-04 14:09] LABS: ABSOLUTE BASOPHIL COUNT 0.1 /CUMM (0.0-0.2); ABSOLUTE EOSINOPHIL COUNT 0.9 /CUMM (0.0-0.7); ABSOLUTE GRANULOCYTE CT 14.4 /CUMM (1.4-6.5); ABSOLUTE LYMPH COUNT 2.1 /CUMM (1.2-3.4); ABSOLUTE MONOCYTE COUNT 0.8 /CUMM (0.10-0.60); BASOPHIL % 0.7 % (0.0-2.0); EOSINOPHIL % 5.1 % (0-5); GRANULOCYTE % 78.3 % (42.2-75.2); HEMATOCRIT 29.2 % (42-52); MEAN CORPUSCULAR HGB CONC 32.7 G/DL (33.0-37.0); MEAN CORPUSCULAR VOLUME 79.4 FL (80.0-94.0); MEAN PLATELET VOLUME 6.2 FL (7.4-10.4); PLATELET COUNT 553 /CUMM (130-400); RBC DISTRIBUTION WIDTH 20.4 % (11.5-14.5); RED BLOOD CELL CT 3.68 /CUMM (4.70-6.10); WHITE BLOOD CELL COUNT 18.4 /CUMM (4.8-10.8)
--- NOTE | 2016-09-04 14:21 | RADIOLOGY REPORT ---
EXAMINATION: XR PORTABLE CHEST CLINICAL INFORMATION: Shortness of breath. Altered mental status. COMPARISON: Chest radiography 08/26/2016. TECHNIQUE: Portable AP view of the chest was obtained. FINDINGS: The lungs are well expanded. There is diffuse interstitial prominence and bronchovascular prominence. Left lower lung opacification and thickening of the left lateral pleural stripe is increased in conspicuity compared to prior exam, which may at least in part reflect pleural fluid. No pneumothorax. Mediastinal contours are unchanged. No acute osseous abnormalities. IMPRESSION: Left basilar opacification with thickening of the lateral pleural stripe may represent pleural fluid and adjacent consolidation. Please correlate for any clinical symptoms of left lower lobe pneumonia. Persistent, unchanged interstitial prominence and bronchovascular prominence.
[2016-09-04] MEDS ORDERED: FERROUS SULFAT325 M3 PO (14:48)
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
--- NOTE | 2016-09-04 17:20 | Admission Certification ---
Admission Certification Certification Statement - As attending physician, I certify that at the time of - admission, based on clinical presentation, severity of - symptoms, need for further diagnostic testing and - therapeutic interventions, and risk of adverse outcomes - without in-hospital treatment, in my clinical assessment, - this patient requires an acute hospital stay for a minimum - of two nights or longer. I have also considered psychsocial - factors such as support system, advanced age, financial - issues, cognitive issues, and failed out-patient treatments, - past re-admission history, safety of patient, and lack of - compliance as applicable. Specific rationale supporting this admission is: opioid overdose, Acute kidney injury, will need iv fluids, multiple wounds, will need placement post discharge .
[2016-09-04 18:15] VITALS: BP 112/60
[2016-09-04 22:28] VITALS: BP 120/60
[2016-09-05 06:30] VITALS: BP 132/60
--- NOTE | 2016-09-05 07:32 | PN- Housestaff ---
BILL GARCIA 09/05/16 0731: Subjective Follow-up For: Leukocytosis altered mental status Subjective: The patient was comfortable this morning. He was more alert compared to yesterday. Tolerating diet well. Vitamin afebrile overnight oxygen saturation in the range of 94-96% on 2 L oxygen (which is his baseline). Blood pressure was stable. Currently on minimal dose of opiates Review of Systems Constitutional: Reports: see HPI. Objective Last 24 Hrs of Vital Signs/I&O Vital Signs Date Time Temp Pulse Resp B/P Pulse O2 O2 Flow FiO2 Ox Delivery Rate 09/05 0630 97.8 95 20 132/60 97 Nasal 2.0L Cannula 09/05 0000 96 Nasal 2.0L Cannula 09/04 2343 Nasal 3.0L Cannula 09/04 2228 97.0 95 20 120/60 96 09/04 2000 98 Nasal 2.0L Cannula 09/04 1815 97.6 87 20 112/60 100 Nasal 2.0L Cannula 09/04 1721 96.4 101 14 126/60 96 Nasal 2.0L Cannula 09/04 1444 96.8 102 16 131/61 98 Nasal 2.5L Cannula 09/04 1353 Nasal 2.5L Cannula 09/04 1310 97 Nasal 2.5L Cannula 09/04 1308 96.9 98 12 116/68 97 Nasal 2.5L Cannula Intake & Output 09/05 0800 09/05 0000 09/04 1600 Intake Total 1040 880 0 Output Total 850 Balance 1040 30 0 Intake, IV 800 400 Intake, Oral 240 480 0 Output, Urine 850 Patient 170 lb 190 lb Weight Physical Exam General Appearance: No Acute Distress Other Physical Findings: General Exam: AAOx3, No acute distress, Skin: No rashes, no breakdown HEENT: PERRLA, EOMI Neck: Supple, No JVD No cervical lymphadenopathy CVS: Reg Rate, Normal S1,S2, No MGR Resp: Normal air entry, no ronchi/rales Abdomen: Soft, No tenderness, Normal Bowel Sounds Neuro: Normal Speech, Strength 5/5 b/l x 4 extremities, Sensation intact, CN III -XII NL, Reflexes 2+ Extremities: No cyanosis, multiple ulcers on left lower extremity extending from ankle up to below knee, dark eschar-like tissue (likely from improper wound care ), multiple wounds/ulcers on bilateral feet-toes. Pulses present. Pedal edema 2+. Current Medications: Current Medications Sig/Silvana Start time Last Medication Dose Route Stop Time Status Admin Acetaminophen 650 MG Q6P PRN 09/04 1845 AC PO Albuterol Sulfate 3 ML TID 09/05 1000 AC INH Albuterol Sulfate 2 PUF Q4-6 PRN PRN 09/04 1730 AC INH Albuterol Sulfate 3 ML Q4-6 PRN PRN 09/04 1730 AC INH Amitriptyline HCl 150 MG AT BEDTIME 09/04 2200 AC 09/04 PO 2136 Ampicillin Sodium/ 0 .STK-MED ONE 09/04 1732 DC Sulbactam Sodium .ROUTE Ampicillin Sodium/ 3,000 MG ONCE ONE 09/04 1600 DC 09/04 Sulbactam Sodium IV 09/04 1629 1733 Sodium Chloride 100 ML Aspirin Buffered 81 MG DAILY 09/05 1000 AC PO Baclofen 10 MG TID 09/04 2200 AC 09/04 PO 2136 Budesonide/ 2 PUF BID 09/04 2200 AC 09/04 Formoterol Fumarate INH 2138 Ferrous Sulfate 325 MG DAILY 09/05 1000 AC PO Gabapentin 800 MG 4 TIMES/DAY 09/04 1800 AC 09/04 PO 2136 Heparin Sodium 5,000 UNIT Q8 09/04 2200 AC 09/05 (Porcine) SC 0458 Naloxone HCl 0.4 MG ONCE ONE 09/04 1545 DC 09/04 IV 09/04 1546 1537 Naloxone HCl 0 .STK-MED ONE 09/04 1534 DC .ROUTE Naloxone HCl 0.8 MG ONCE ONE 09/04 1330 DC 09/04 IM 09/04 1331 1333 Naloxone HCl 0 .STK-MED ONE 09/04 1327 DC .ROUTE Oxycodone HCl 15 MG Q12 09/04 2200 AC PO Prednisone 10 MG DAILY 09/05 1000 AC PO Sodium Chloride 1,000 ML Q10H 09/04 1730 AC 09/05 IV 0458 Vitamin A/Vitamin D 1 JENNIFER DAILY NEEDED 09/04 1800 AC TOP Last 24 Hrs of Lab/Alonso Results Last 24 Hrs of Labs/Mics: Laboratory Tests 09/04/16 1402: Anion Gap 6, Estimated GFR 59 L, BUN/Creatinine Ratio 17.7, Glucose 96, Calcium 7.7 L, Total Bilirubin 0.2, AST 25, ALT 29, Alkaline Phosphatase 193 H, Troponin I < 0.01, Total Protein 5.5 L, Albumin 2.0 L, Globulin 3.5, Albumin/ Globulin Ratio 0.6 L, CBC w Diff MAN DIFF ORDERED, RBC 3.68 L, MCV 79.4 L, MCH 26.0 L, RDW 20.4 H, MPV 6.2 L, Gran % 78.3 H, Lymphocytes % 11.5 L, Monocytes % 4.4, Eosinophils % 5.1 H, Basophils % 0.7, Absolute Granulocytes 14.4 H, Segmented Neutrophils 76 H, Band Neutrophils 2, Absolute Lymphocytes 2.1, Lymphocytes 11 L, Monocytes 5, Absolute Monocytes 0.8 H, Eosinophils 5, Absolute Eosinophils 0.9, Absolute Basophils 0.1, Metamyelocytes 1, Platelet Estimate INCREASED, Anisocytosis 1+, PUBS MCHC 32.7 L 09/04/16 1346: Urine Opiates Screen 919.00, Methadone Screen 97, Barbiturate Screen < 60, Ur Phencyclidine Scrn < 6.00, Amphetamines Screen < 100, U Benzodiazepines Scrn 93, Urine Cocaine Screen < 50, Urine Cannabis Screen 40.40, Urinalysis MANY H, Urine Color YEL, Urine Clarity HAZY H, Urine pH 6.0, Ur Specific [place] 1.025, Urine Protein >=300 H, Urine Ketones NEG, Urine Nitrite NEG, Urine Bilirubin NEG@ICTO, Urine Urobilinogen 0.2, Ur Leukocyte Esterase NEG, Ur Microscopic SEDIMENT EXAMINED, Urine RBC 1-3, Urine WBC 3-5 H, Ur Epithelial Cells FEW, Hyaline Casts 25-50 H, Urine Hemoglobin TRACE-INTACT H, Urine Glucose 100 H Microbiology 09/04 1725 LOWER RESP: Respiratory Culture - COLB 09/04 172 LOWER RESP: Gram Stain - COLB Assessment/Plan Assessment: His a middle-age man with a past history of COPD/interstitial lung disease, congestive heart failure, chronic kidney disease, peripheral neuropathy (on chronic opiate use), is being evaluated for confusion and increased sedation. Admission diagnosis: #1 opiate overdose (prescribed medication) #2 MRSA pneumonia #3 pleural effusion secondary to CHF. Below is the problem list and plan: #1 increased confusion, sleepiness-likely due to opiate overdose, which improved on the use of Narcan. Decrease the dose of OxyContin. Taper as needed. Narcan at bedside. Continue to monitor closely. Started the dose of oxycodone-15 mg twice a day as needed (hold for sedation and lower respiratory rate). Nurse informed. #2 leukocytosis, abnormal x-ray finding-since the patient had recent inhalational lung injury, staph aureus pneumonia needs to be higher in the differential. Since the patient did not have any clinical signs and symptoms suggestive of pneumonia, plan is to monitor the patient. MRSA pneumonia, aspiration pneumonia were on the differential. No antibiotics unless clinically indicated. #3 anemia-low H&H. Likely dilutional. Check iron studies. Continue to monitor closely. #4 acute kidney discontinue fluids today. Creatinine 1.1. Avoid nephrotoxic drugs at this time, including ARB/before meals inhibitors. #5 multiple leg wounds-on examination, wounds appear purulent. No signs of cellulitis such as extensive erythema, tenderness not seen. Currently antibiotics are not required. Continue to monitor closely. Wound care as per previous recommendations by Dr. Vaughan. #6 DVT prophylaxis-heparin. #7 interstitial lung disease-continue prednisone at 10 mg per day. Problem List: 1. Aspiration pneumonia 2. Overdose 3. Superficial burn Pain Ratin Pain Location: Bilateral lower extremities Pain Goal: Pain 4 or less Pain Plan: OxyContin Oxycodone Tomorrow's Labs & Rationales: Vesiculate leg panel-the patient had hypokalemia which has been repleted. Continue to monitor. CBC-patient has anemia-to monitor closely. DVT/Prophylaxis: pharmacological ALINE HULL,[facility] 09/05/16 1107: Attending MD Review Statement Attending Statement Attending MD Statement: examined this patient, discuss w/resident/PA/MICROPHONE OPERATOR, agreed w/resident/PA/MICROPHONE OPERATOR, discussed with family, reviewed EMR data (avail), discussed with nursing, discussed with case mgmt, reviewed images, amended to note Attending Assessment/Plan: Patient sitting comfortably in bed awake, alert, oriented 3. Denies any fever, cough, urinary complaints, shortness of breath, chest pain. His white count has trended down. Afebrile overnight. Plan: 1. Continue his current pain regimen. Please make sure psychiatrist sees the patient. 2. Monitor white count. Watch off antibiotics. 3. His H&H has dropped, but most likely it is dilutional. Guaiac stool to rule out GI bleed. 4. Replete potassium. 5. Kidney function has improved, discontinue fluid if his by mouth intake is adequate. 6. Social work consult, as patient will need placement/inpatient psych on discharge.
[2016-09-05 08:46] LABS: ABSOLUTE BASOPHIL COUNT 0.1 /CUMM (0.0-0.2); ABSOLUTE EOSINOPHIL COUNT 0.6 /CUMM (0.0-0.7); ABSOLUTE GRANULOCYTE CT 8.5 /CUMM (1.4-6.5); ABSOLUTE MONOCYTE COUNT 1.2 /CUMM (0.10-0.60); EOSINOPHIL % 4.4 % (0-5); GRANULOCYTE % 63.2 % (42.2-75.2); HEMATOCRIT 24.6 % (42-52); MEAN CORPUSCULAR HGB CONC 32.7 G/DL (33.0-37.0); MEAN CORPUSCULAR VOLUME 79.4 FL (80.0-94.0); MEAN PLATELET VOLUME 6.4 FL (7.4-10.4); PLATELET COUNT 500 /CUMM (130-400); RBC DISTRIBUTION WIDTH 20.2 % (11.5-14.5); WHITE BLOOD CELL COUNT 13.5 /CUMM (4.8-10.8)
[2016-09-05 13:49] VITALS: BP 130/64
[2016-09-05 22:19] VITALS: BP 140/70
--- NOTE | 2016-09-06 05:50 | PN- Housestaff ---
BILL GARCIA 09/06/16 0549: Subjective Follow-up For: -altered mentatl status Subjective: He was comfortable this morning. He did not have any complaints. He was more awake compared to yesterday. Vitals remained stable. Currently on 2 L ( baseline), oxygen saturations above 90%. Mr. Monge requested me to talk to his and updated her about U tox status. Informed the patient's about the recent U tox results. As per the laboratory, and methadone levels that are less than lower cutoff are usually not significant and do not indicate any methadone use recently. Informed both Mr. Monge and his . Review of Systems Constitutional: Reports: see HPI. Objective Last 24 Hrs of Vital Signs/I&O Vital Signs Date Time Temp Pulse Resp B/P Pulse O2 O2 Flow FiO2 Ox Delivery Rate 09/06 0108 82 98 09/06 0000 Nasal 3.0L Cannula 09/05 2219 98.6 86 20 140/70 92 09/05 2136 Nasal 3.0L Cannula 09/05 1600 94 Nasal 2.0L Cannula 09/05 1349 98.6 99 20 130/64 96 Nasal 2.0L Cannula 09/05 0800 94 Nasal 2.0L Cannula 09/05 0742 98 Nasal 2.5L Cannula 09/05 0630 97.8 95 20 132/60 97 Nasal 2.0L Cannula Intake & Output 09/06 0800 09/06 0000 09/05 1600 Intake Total 240 900 Output Total 800 Balance 240 100 Intake, IV 100 Intake, Oral 240 800 Number 0 Bowel Movements Output, Urine 800 Physical Exam General Appearance: No Acute Distress Other Physical Findings: General Exam: AAOx3, No acute distress, Skin: No rashes, no breakdown HEENT: PERRLA, EOMI Neck: Supple, No JVD No cervical lymphadenopathy CVS: Reg Rate, Normal S1,S2, No MGR Resp: Normal air entry, no ronchi/rales Abdomen: Soft, No tenderness, Normal Bowel Sounds Neuro: Normal Speech, Strength 5/5 b/l x 4 extremities, Sensation intact, CN III -XII NL, Reflexes 2+ Extremities: No cyanosis, multiple ulcers on left lower extremity extending from ankle up to below knee, dark eschar-like tissue (likely from improper wound care ), multiple wounds/ulcers on bilateral feet-toes. Pulses present. Pedal edema 2+ Current Medications: Current Medications Sig/Silvana Start time Last Medication Dose Route Stop Time Status Admin Acetaminophen 650 MG Q6P PRN 09/04 1845 AC PO Albuterol Sulfate 3 ML TID 09/05 1000 AC 09/05 INH 2039 Albuterol Sulfate 2 PUF Q4-6 PRN PRN 09/04 1730 AC INH Albuterol Sulfate 3 ML Q4-6 PRN PRN 09/04 1730 AC INH Amitriptyline HCl 150 MG AT BEDTIME 09/04 2200 AC 09/05 PO 2136 Aspirin Buffered 81 MG DAILY 09/05 1000 AC 09/05 PO 0957 Baclofen 10 MG TID 09/04 2200 AC 09/05 PO 2136 Budesonide/ 2 PUF BID 09/04 2200 AC 09/05 Formoterol Fumarate INH 2137 Ferrous Sulfate 325 MG DAILY 09/05 1000 AC 09/05 PO 0957 Gabapentin 800 MG 4 TIMES/DAY 09/04 1800 AC 09/05 PO 2136 Heparin Sodium 5,000 UNIT .STK-MED ONE 09/05 1406 DC (Porcine) IV 09/05 1407 Heparin Sodium 5,000 UNIT Q8 09/04 2200 AC 09/06 (Porcine) SC 0507 Oxycodone HCl 15 MG Q12P PRN 09/05 1300 AC 09/05 PO 1307 Oxycodone HCl 15 MG Q12 09/04 2200 AC 09/05 PO 2137 Potassium Chloride 20 MEQ ONCE ONE 09/05 1500 DC 09/05 PO 09/05 1501 1415 Potassium Chloride 40 MEQ ONCE ONE 09/05 1315 DC 09/05 PO 09/05 1316 1415 Prednisone 10 MG DAILY 09/05 1000 AC 09/05 PO 0957 Sodium Chloride 1,000 ML Q10H 09/04 1730 DC 09/05 IV 0458 Vitamin A/Vitamin D 1 JENNIFER DAILY NEEDED 09/04 1800 TOP Last 24 Hrs of Lab/Alonso Results Last 24 Hrs of Labs/Mics: Laboratory Tests 09/05/16 0750: Anion Gap 6, Estimated GFR > 60, BUN/Creatinine Ratio 20.9, CBC w Diff NO MAN DIFF REQ, RBC 3.10 L, MCV 79.4 L, MCH 26.0 L, RDW 20.2 H, MPV 6.4 L, Gran % 63.2, Lymphocytes % 22.4, Monocytes % 9.0, Eosinophils % 4.4, Basophils % 1.0, Absolute Granulocytes 8.5 H, Absolute Lymphocytes 3.0, Absolute Monocytes 1.2 H, Absolute Eosinophils 0.6, Absolute Basophils 0.1, PUBS MCHC 32.7 L Assessment/Plan Assessment: His a middle-age man with a past history of COPD/interstitial lung disease, congestive heart failure, chronic kidney disease, peripheral neuropathy (on chronic opiate use), is being evaluated for confusion and increased sedation. Admission diagnosis: #1 opiate overdose (prescribed medication) #2 pleural effusion secondary to CHF. Below is the problem list and plan: #1 increased confusion, sleepiness-likely due to opiate overdose, which improved on the use of Narcan. Decreased the dose of OxyContin. Taper as needed. Narcan at bedside. Continue to monitor closely. Started the dose of oxycodone- 15 mg twice a day as needed (hold for sedation and lower respiratory rate). Nurse informed. [facility]-checked this a.m. and confirmed that he received oxycodone and OxyContin from his usual prescriber. #2 leukocytosis, abnormal x-ray finding-since the patient had recent inhalational lung injury, staph aureus pneumonia needs to be higher in the differential. No antibiotics unless clinically indicated. #3 anemia-low H&H. Anemia of chronic disease. He has a history of glomerulosclerosis (nondiabetic) nephrotic range proteinuria. Continue to monitor closely. Check iron studies. #4 acute kidney injury-serum creatinine improving. Restart losartan and furosemide. #5 multiple leg wounds-on examination, wounds appear purulent. No signs of cellulitis such as extensive erythema, tenderness not seen. Currently antibiotics are not required. Continue to monitor closely. Wound care as per previous recommendations by Dr. Vaughan. #6 DVT prophylaxis-heparin. #7 interstitial lung disease-continue prednisone at 10 mg per day. Problem List: 1. Overdose 2. Superficial burn 3. COPD (chronic obstructive pulmonary disease) Pain Ratin Pain Location: Bilateral lower extremities Pain Goal: Pain 4 or less Pain Plan: OxyContin Oxycodone (when necessary). Tomorrow's Labs & Rationales: CBC-monitor elevated WBC count. And low H&H. KHLOE GILL MD 09/06/16 1338: Attending MD Review Statement Attending Statement Attending MD Statement: examined this patient, discuss w/resident/PA/ALARM INSTALLER, agreed w/resident/PA/ALARM INSTALLER, reviewed EMR data (avail), discussed with nursing, discussed with case mgmt, reviewed images Attending Assessment/Plan: 51-year-old male known to me from previous admissions. He has a history of chronic respiratory failure with COPD on 2.5 L of oxygen at home, prednisone dependent lung disease, heart failure with a preserved EF, CK D and opiate dependence. He is here after having recently been discharged with acute on chronic hypoxemic respiratory failure that's opiate induced. The patient denies taking extra medications and is not even sure how all this happened. His biggest concern are his wounds on his leg and his ability to ambulate and his safe discharge plan. At this point will call wound care consult, follow his respiratory status closely. We have him on a lower dose of opiates and he is a very fine balance between pain versus sedation given his fragile lung status.
[2016-09-06 06:38] VITALS: BP 138/76
[2016-09-06 08:06] LABS: ABSOLUTE BASOPHIL COUNT 0.1 /CUMM (0.0-0.2); ABSOLUTE EOSINOPHIL COUNT 0.4 /CUMM (0.0-0.7); ABSOLUTE GRANULOCYTE CT 8.9 /CUMM (1.4-6.5); ABSOLUTE LYMPH COUNT 4.1 /CUMM (1.2-3.4); ABSOLUTE MONOCYTE COUNT 1.2 /CUMM (0.10-0.60); EOSINOPHIL % 2.6 % (0-5); GRANULOCYTE % 60.5 % (42.2-75.2); HEMATOCRIT 25.8 % (42-52); MEAN CORPUSCULAR HGB CONC 32.6 G/DL (33.0-37.0); MEAN CORPUSCULAR VOLUME 79.8 FL (80.0-94.0); MEAN PLATELET VOLUME 6.2 FL (7.4-10.4); PLATELET COUNT 531 /CUMM (130-400); RBC DISTRIBUTION WIDTH 19.9 % (11.5-14.5); RED BLOOD CELL CT 3.23 /CUMM (4.70-6.10); WHITE BLOOD CELL COUNT 14.7 /CUMM (4.8-10.8)
--- NOTE | 2016-09-06 08:42 | Discharge Summary ---
Visit Information Visit Dates Admission Date: 09/04/16 Discharge Date: 09.08.16 Hospital Course Course Attending Physician: JAIRO HULL,KHLOE Marin Primary Care Physician: YULI Smith MD Hospital Course: Mr Monge is a 51 yr old man w/ a PMH of chronic pain syndrome for neuropathy ( recent decrease in opiate use after being discharged from [facility] 2 d prior to this admission ), COPD, ILD, CKD, CHF. He was evaluated w/ a chief concern of increasing sleepiness, confusion 1 day. At the time of admission, vitals-temperature 96.9, pulse rate 98, blood pressure 116/68, 97% on 2.5 L (baseline), Findings indicate leukocytosis-WBC 18.9 ( granulocytosis), hemoglobin 9.6 (anemia-baseline 9.3), MCV 79.4 (microcytic), platelets 553 (thrombocytosis-likely reactive), normal electrolytes-sodium 133, potassium 3.5, bicarbonate 28, normal renal function-BUN 23, serum creatinine 1.3 (baseline 0.8), AST 25, ALT 29 (within normal limits), slightly elevated alkaline phosphatase (193), decreased albumin 2.0 and calcium 7.7 (corrected calcium within normal limits), U tox was positive for opiates only. Urinalysis revealed protein above 300 (previous history of nephrotic range proteinuria likely from glomerulosclerosis of hypertension), multiple hyaline casts 25-50 (likely due to dehydration), WBC 3-5, no leukocyte esterase or nitrites. Radiological findings-chest x-ray indicated left basilar consolidation (likely pleural effusion versus consolidation). EKG revealed T- wave changes from V3-V6 (no change compared to previous findings), right bundle branch block, normal sinus rhythm. Differential diagnosis: 1. Unintentional opiate use. He was admitted to the general medicine service for further management. Below is the problem list and plan: 1) Increased confusion, sleepiness-likely due to unintentional opiate overdose: He was given Narcan enroute, which helped with his mentation. In the hospital, he was continued on oxycontin and oxycodone 15mg TID. Since, he did not have any oxycontin 15mg tabs, he was issued a prescription of 8 tabs, until he sees the pain management doctor. He was also advised to return the unsused medication to the physician. Pain was adquately controlled. 2) Leukocytosis: Since the patient did not have any clinical signs and symptoms suggestive of pneumonia, plan was to monitor the patient. He was initially given Unasyn, which was later discontinued as he did not have any other signs of symptoms of infection. 3) DEE on CKD: Patient was given IV fluids, until serum creatinine is improved. Avoided were, nephrotoxic drugs, including ARB/before meals inhibitors. 4) Multiple leg wounds: Wounds appeared purulent. No signs of cellulitis such as extensive erythema, tenderness not seen. Wound care consult was placed for further management. 5) Interstitial lung disease: Continued prednisone at 10 mg per day. 6) DVT prophylaxis: SubQ Heparin 7) Code Status: Full Code Complications: None Allergies: Coded Allergies: Iodinated Contrast Media - Oral and (IODINATED CONTRAST MEDIA - IV DYE) (RED RASH TOLERATES WITH BENADRYL 01/12/16) Significant Procedures: None Pertinent Lab Results: RAD - XRY-PORTABLE CHEST XRAY Left basilar opacification with thickening of the lateral pleural stripe may represent pleural fluid and adjacent consolidation. Please correlate for any clinical symptoms of left lower lobe pneumonia. Persistent, unchanged interstitial prominence and bronchovascular prominence. Disposition Summary Disposition Principal Diagnosis: Increased confusion 2/2 unintentional opiate overdose Additional Diagnosis: DEE on CKD Multiple wounds on bilateral lower extremities Interstitial Lung Disease HFpEF Discharge Disposition: home or self care Discharge Instructions General Discharge Information Code Status: Full Code Patient's Diet: Diabetic Diet Patient's Activity: As tolerated Follow-Up Instructions/Appts: Please make an appointment to see your 1) PCP within one week from discharge. 2) Your [facility] within one week from discharge. Medications at Discharge Discharge Medications: Stop taking the following medications: Oxycodone HCl (Oxycontin) 15 MG TAB.ER.12H ORAL EVERY 12 HOURS as needed for neuropathies Qty = 30 Oxycodone HCl (Roxicodone) 30 MG TABLET ORAL EVERY 12 HOURS as needed for neuropathies Qty = 30 Continue taking these medications: Risedronate Sodium (Actonel) 35 MG TABLET 1 Tablet ORAL EVERY TUESDAY Comments: Last Taken: 09/07/16 Time: 6AM Albuterol Sulfate (Proair Hfa) 90 MCG HFA.AER.AD 2 Puff Inhale through mouth EVERY 4-6 HOURS NEEDED as needed for BREATHING PROBLEMS Comments: NOT GIVEN WHILE IN HOSPITAL Gabapentin (Neurontin) 800 MG TABLET 1 Tablet ORAL 4 TIMES A DAY Comments: Last Taken: 09/08/16 Time: 2PM Amitriptyline HCl (Amitriptyline HCl) 150 MG TABLET 1 Tablet ORAL Every night Comments: Last Taken: 09/07/16 Time: 10PM Baclofen (Baclofen) 10 MG TABLET 1 Tablet ORAL THREE TIMES DAILY Comments: Last Taken: 09/08/16 Time: 10AM Losartan Potassium (Cozaar) 50 MG TABLET 1 Tablet ORAL DAILY Comments: Last Taken: 09/08/16 Time: 10AM Fluticasone-Salmeterol (Advair 100-50 Diskus) 100 MCG-50 MCG/DOSE BLST.W.DEV 1 Puff Inhale through mouth TWICE DAILY Qty = 180 Comments: Last Taken: 09/08/16 Time: 10AM SYMBICORT GIVEN SUBSTITUTION Prednisone (Prednisone) 10 MG TABLET 1 Tablet ORAL DAILY Days = 30 Instructions: AFTER FINISHING PREDNISONE TAPER. Comments: Last Taken: 09/08/16 Time: 10AM Albuterol Sulfate (Albuterol Sulfate) 2.5 MG/3 ML (0.083 %) VIAL.NEB 1 Vial Inhale Solution Q4-6H as needed for COPD Comments: Last Taken: 09/07/16 Time: 7:30PM Aspirin (Ecotrin*) 81 MG TABLET.DR 1 Tablet ORAL DAILY Comments: Last Taken: 09/08/16 Time: 10AM Furosemide (Lasix) 40 MG TABLET 1 Tablet ORAL TWICE DAILY Comments: Last Taken: 09/08/16 Time: 5:30AM Ferrous Sulfate (Ferrous Sulfate) 325 MG (65 MG IRON) TABLET 1 Tablet ORAL DAILY Comments: Last Taken: 09/08/16 Time: 10AM Start taking the following new medications: Oxycodone HCl (Oxycontin) 15 MG TAB.ER.12H 15 Milligram ORAL Q12H Qty = 30 No Refills Comments: Last Taken: 09/08/16 Time: 5:30AM Oxycodone HCl (Oxycodone HCl) 5 MG TABLET 15 Milligram ORAL EVERY 8 HOURS NEEDED as needed for pain 7-10 Qty = 30 No Refills Comments: Last Taken: 09/08/16 Time: 12:30PM Copies To: FREDDIE HULL,YULI Canela Attending MD Review Statement Documenting Attending: CHANDRIKA GOINS MD
[2016-09-06 13:50] VITALS: BP 132/68
[2016-09-06 22:25] VITALS: BP 140/70
--- NOTE | 2016-09-07 05:58 | PN- Housestaff ---
BILL GARCIA 09/07/16 0557: Subjective Follow-up For: - altered mental status Subjective: Pt comfortable. No complaints. Vitals remained stable overnight. State slightly hypertensive systolic blood pressure 140-150s. Currently on losartan. Discussed with him in detail about the pain management with the current pain regimen. Seemed to have understood. Review of Systems Constitutional: Reports: see HPI. Objective Last 24 Hrs of Vital Signs/I&O Vital Signs Date Time Temp Pulse Resp B/P Pulse O2 O2 Flow FiO2 Ox Delivery Rate 09/07 0000 98 CPAP 2.5L 09/06 2241 98 09/06 2225 98.1 102 19 140/70 96 Nasal Cannula 09/06 1905 96 Nasal 2.5L Cannula 09/06 1600 Nasal 2.5L Cannula 09/06 1350 97.5 100 18 132/68 97 Nasal 2.5L Cannula 09/06 1342 Nasal 2.5L Cannula 09/06 1336 Nasal 2.5L Cannula 09/06 1334 Nasal 2.5L Cannula 09/06 1325 Nasal 2.5L Cannula 09/06 1126 140/70 09/06 0812 96 Nasal 2.5L Cannula 09/06 0800 Nasal 2.0L Cannula 09/06 0638 98.7 85 20 138/76 95 Nasal 2.0L Cannula Intake & Output 09/07 0800 09/07 0000 09/06 1600 Intake Total 980 800 Output Total 1900 1300 Balance -920 -500 Intake, IV 500 0 Intake, Oral 480 800 Number 2 0 Bowel Movements Output, Urine 1900 1300 Patient 169 lb Weight Physical Exam General Appearance: No Acute Distress Other Physical Findings: General Exam: AAOx3, No acute distress, Skin: No rashes, no breakdown HEENT: PERRLA, EOMI Neck: Supple, No JVD No cervical lymphadenopathy CVS: Reg Rate, Normal S1,S2, No MGR Resp: Normal air entry, rales R>L Abdomen: Soft, No tenderness, Normal Bowel Sounds Neuro: Normal Speech, Strength 5/5 b/l x 4 extremities, Sensation intact, CN III -XII NL, Reflexes 2+ Extremities: No cyanosis, multiple ulcers on left lower extremity extending from ankle up to below knee, dark eschar-like tissue (likely from improper wound care ), multiple wounds/ulcers on bilateral feet-toes. Pulses present. Pedal edema 2+ Current Medications: Current Medications Sig/Silvana Start time Last Medication Dose Route Stop Time Status Admin Acetaminophen 650 MG Q6P PRN 09/04 1845 AC PO Albuterol Sulfate 3 ML TID 09/05 1000 AC 09/06 INH 1905 Albuterol Sulfate 2 PUF Q4-6 PRN PRN 09/04 1730 AC INH Albuterol Sulfate 3 ML Q4-6 PRN PRN 09/04 1730 AC INH Amitriptyline HCl 150 MG AT BEDTIME 09/04 2200 AC 09/06 PO 2157 Aspirin Buffered 81 MG DAILY 09/05 1000 AC 09/06 PO 0939 Baclofen 10 MG TID 09/04 2200 AC 09/06 PO 2157 Budesonide/ 2 PUF BID 09/04 2200 AC 09/06 Formoterol Fumarate INH 2156 Ferrous Sulfate 325 MG DAILY 09/05 1000 AC 09/06 PO 0939 Furosemide 40 MG BID 09/06 1001 AC 09/06 PO 2157 Gabapentin 800 MG 4 TIMES/DAY 09/04 1800 AC 09/06 PO 2157 Heparin Sodium 5,000 UNIT Q8 09/06 2200 AC 09/06 (Porcine) SC 2157 Heparin Sodium 5,000 UNIT Q8 09/04 2200 DC 09/06 (Porcine) SC 1310 Losartan Potassium 50 MG DAILY 09/06 1001 AC 09/06 PO 1126 Oxycodone HCl 15 MG Q12H 09/06 1900 AC 09/06 PO 1805 Oxycodone HCl 15 MG Q12P PRN 09/05 1300 AC 09/06 PO 2245 Oxycodone HCl 15 MG Q12 09/04 2200 DC 09/06 PO 0939 Prednisone 10 MG DAILY 09/05 1000 AC 09/06 PO 0939 Risedronate 35 MG ONCE A WEEK@0600 09/07 0600 AC PO Vitamin A/Vitamin D 1 JENNIFER DAILY NEEDED 09/04 1800 TOP Last 24 Hrs of Lab/Alonso Results Last 24 Hrs of Labs/Mics: Laboratory Tests 09/06/16627: Anion Gap 4 L, Estimated GFR > 60, BUN/Creatinine Ratio 20.0, CBC w Diff NO MAN DIFF REQ, RBC 3.23 L, MCV 79.8 L, MCH 26.0 L, RDW 19.9 H, MPV 6.2 L, Gran % 60.5, Lymphocytes % 27.7, Monocytes % 8.2, Eosinophils % 2.6, Basophils % 1.0, Absolute Granulocytes 8.9 H, Absolute Lymphocytes 4.1 H, Absolute Monocytes 1.2 H, Absolute Eosinophils 0.4, Absolute Basophils 0.1, PUBS MCHC 32.6 L Assessment/Plan Assessment: His a middle-age man with a past history of COPD/interstitial lung disease, congestive heart failure, chronic kidney disease, peripheral neuropathy (on chronic opiate use), is being evaluated for confusion and increased sedation. Admission diagnosis: #1 opiate overdose (prescribed medication) #2 pleural effusion secondary to CHF. Below is the problem list and plan: #1 increased confusion, sleepiness-likely due to opiate overdose, which improved on the use of Narcan. Decreased the dose of OxyContin. Taper as needed. Continue to monitor closely. Started the dose of oxycodone-15 mg twice a day as needed (hold for sedation and lower respiratory rate). Nurse informed. #2 leukocytosis, abnormal x-ray finding-since the patient had recent inhalational lung injury, staph aureus pneumonia needs to be higher in the differential. No antibiotics unless clinically indicated. #3 anemia-low H&H. Anemia of chronic disease. He has a history of glomerulosclerosis (nondiabetic) nephrotic range proteinuria. Continue to monitor closely. #4 acute kidney injury-serum creatinine improving. Restarted losartan and furosemide. May increase the dose of losartan 100 mg by mouth daily. Monitor closely. #5 multiple leg wounds-on examination, wounds appear purulent. No signs of cellulitis such as extensive erythema, tenderness not seen. Currently antibiotics are not required. Continue to monitor closely. Wound care as per previous recommendations by Dr. Vaughan. Discussed with Cristina- Wound care nurse involved in the care. #6 DVT prophylaxis-heparin. #7 interstitial lung disease-continue prednisone at 10 mg per day. Elevated white count could likely be due to prednisone use. Problem List: 1. Aspiration pneumonia 2. Overdose 3. Substance abuse 4. Respiratory failure Pain Ratin Pain Location: b/l lower extremities Pain Goal: Pain 4 or less Pain Plan: OxyContin Oxycodone Tomorrow's Labs & Rationales: CBC- BEP- KHLOE GILL MD 09/07/16 1630: Attending MD Review Statement Attending Statement Attending MD Statement: examined this patient, discuss w/resident/PA/RIB KNITTER, agreed w/resident/PA/RIB KNITTER, reviewed EMR data (avail), discussed with case mgmt, reviewed images Attending Assessment/Plan: Patient is doing better and much more awake and lucid. He is a 51-year-old with underlying CKD, COPD with chronic respiratory failure, interstitial lung disease with prednisone dependence and opiate use. Appreciate wound care consult and we are actively working on STR as recommended by PT.
[2016-09-07 07:03] VITALS: BP 152/70
--- NOTE | 2016-09-07 08:33 | PN- Wound Care ---
Subjective Subjective: This 51-year-old whose been followed in the wound care center for lower extremity venous stasis ulcers. He reports trauma to his left leg during transport to the hospital with extensive abrasion. Objective Vital Signs and I&Os Vital Signs Result Date Time Pulse Ox 96 09/07 702 B/P 152/70 09/07 702 O2 Delivery Nasal Cannula 09/07 702 Temp 97.7 09/07 07 Pulse 96 09/07 07 Resp 20 09/07 702 O2 Flow Rate 2.5L 09/07 0000 Intake & Output 09/07 0000 09/06 1600 09/06 0800 Intake Total 980 800 120 Output Total 1900 1300 850 Balance -920 -500 -730 Intake, IV 500 0 Intake, Oral 480 800 120 Number 2 0 0 Bowel Movements Output, Urine 1900 1300 850 Patient 169 lb Weight Exam of the right leg shows the prior ulcer to be healed. There is extensive abrasion ulceration of the left leg measuring approximately 15 x 4 cm and 7 x 2 cm there is dry adherent slough is no periwound erythema undermining sinus tracking there is no edema Impression/Plan Impression/Plan Impression/Plan: 51-year-old gentleman with venous insufficiency who sustained trauma to the left leg reportedly during transport. Wounds require aggressive cleansing for removal of slough and then moist wound care using Xeroform gauze over dressing as he's going to rehabilitation continue leg elevation for management of edema if he becomes more ambulatory [place] wrap can be applied to the left leg to assist with edema control he can be followed up in the wound care center following discharge from the hospital
[2016-09-07] MEDS ORDERED: OXYCONTIN15 M1 PO (13:41)
[2016-09-07] MEDS ORDERED: OXYCODONE HCL5 M1 PO (13:41)
--- NOTE | 2016-09-07 13:46 | Patient Discharge Instructions ---
Discharge Instructions General Discharge Information You were seen/treated for: Altered Mental Status Special Instructions: Please make an appointment to see your: 1) PCP within one week from discharge 2) Dr. Braga within one week from discharge with regards to further wound care in the outpatient setting. Diet Recommended Diet: Diabetic Activity Activity Self Limited: Yes Acute Coronary Syndrome Inclusion Criteria At DC or during hospital stay patient has or had the following: ACS DIAGNOSIS No Discharge Core Measures Meds if any: Prescribed or Continued at Discharge Meds if any: NOT Prescribed or Continued at Discharge Congestive Heart Failure Inclusion Criteria At DC or during hospital stay patient has or had the following: CHF DIAGNOSIS No Discharge Core Measures Meds if any: Prescribed or Continued at Discharge Meds if any: NOT Prescribed or Continued at Discharge Cerebrovascular accident Inclusion Criteria At DC or during hospital stay patient has or had the following: CVA/TIA Diagnosis No Discharge Core Measures Meds if any: Prescribed or Continued at Discharge Meds if any: NOT Prescribed or Continued at Discharge Venous thromboembolism Inclusion Criteria VTE Diagnosis No VTE Type NONE VTE Confirmed by (Test) NONE Discharge Core Measures - Per Current guidelines, there needs to be overlap - treatment for the first 5 days of Warfarin therapy. - If discharged on Warfarin prior to 5 days of - overlap therapy, the patient will need to be - assessed for post discharge needs including - *Post discharge parental anticoagulation - *Warfarin and/or parental anticoagulation education - *Follow up date to check INR post discharge At least 5 days overlap therapy as Inpatient No Meds if any: Prescribed or Continued at Discharge Note: Overlap Therapy is Warfarin and Anticoagulant Meds if any: NOT Prescribed or Continued at Discharge
[2016-09-07 13:52] VITALS: BP 150/60
[2016-09-07 23:59] VITALS: BP 150/76
[2016-09-08 06:32] VITALS: BP 126/74
--- NOTE | 2016-09-08 07:18 | PN- Housestaff ---
BILL GARCIA 09/08/16 0717: Subjective Follow-up For: - AMS - Unintentional opiate use Subjective: He was comfortable this morning. Vital signs stable. As per the patient and the social service director-the patient to be discharged home and would stay in a hotel until he finds suitable living arrangement. After the patient was more active, physical therapy recommended the patient be discharged home. The patient had OxyContin 60 mg, at home (checked on [facility] DISEASE CASE MANAGER). After discussing with pharmacy, that long-acting medication could not be cut, a new prescription was made for OxyContin 15 mg by mouth twice a day for a total of 8 tablets. Countersigned by Clara Noyola MD. Discussed in detail with the patient that he would return the remaining OxyContin 60 mg tablets 2 his pain management clinic. And to take the medications as prescribed only. Review of Systems Constitutional: Reports: see HPI. Objective Last 24 Hrs of Vital Signs/I&O Vital Signs Date Time Temp Pulse Resp B/P Pulse O2 O2 Flow FiO2 Ox Delivery Rate 09/08 0632 98.0 88 20 126/74 97 Nasal 2.5L Cannula 09/08 0000 Nasal 2.5L Cannula 09/07 2359 99.0 102 20 150/76 96 Nasal 2.5L Cannula 09/07 2237 98 99 09/07 1935 95 Nasal 2.5L Cannula 09/07 1600 Nasal 2.5L Cannula 09/07 1352 97.6 106 20 150/60 96 Room Air 09/07 1015 Nasal 2.5L Cannula 09/07 0901 96 152/70 09/07 0837 95 Nasal 2.5L Cannula 09/07 0800 94 Nasal 2.5L Cannula Intake & Output 09/08 0800 09/08 0000 09/07 1600 Intake Total 1999 425 Output Total 1150 2425 1700 Balance -1150 -425 -1275 Intake, Oral 1999 425 Output, Urine 1150 2425 1700 Physical Exam General Appearance: No Acute Distress Other Physical Findings: General Exam: AAOx3, No acute distress, Skin: No rashes, no breakdown HEENT: PERRLA, EOMI Neck: Supple, No JVD No cervical lymphadenopathy CVS: Reg Rate, Normal S1,S2, No MGR Resp: Normal air entry, no ronchi/rales Abdomen: Soft, No tenderness, Normal Bowel Sounds Neuro: Normal Speech, Strength 5/5 b/l x 4 extremities, Sensation intact, CN III -XII NL, Reflexes 2+ Extremities: No cyanosis, multiple ulcers on left lower extremity extending from ankle up to below knee, dark eschar-like tissue (likely from improper wound care ), multiple wounds/ulcers on bilateral feet-toes. Pulses present. Pedal edema 2+ Current Medications: Current Medications Sig/Silvana Start time Last Medication Dose Route Stop Time Status Admin Acetaminophen 650 MG .STK-MED ONE 09/07 0855 DC PO 09/07 0856 Acetaminophen 650 MG Q6P PRN 09/04 1845 AC 09/07 PO 0902 Albuterol Sulfate 3 ML Q4P PRN 09/07 2245 AC INH Albuterol Sulfate 3 ML TID 09/05 1000 DC 09/07 INH 1935 Albuterol Sulfate 2 PUF Q4-6 PRN PRN 09/04 1730 AC INH Albuterol Sulfate 3 ML Q4-6 PRN PRN 09/04 1730 AC INH Amitriptyline HCl 150 MG AT BEDTIME 09/04 2200 AC 09/07 PO 2204 Aspirin Buffered 81 MG DAILY 09/05 1000 AC 09/07 PO 0901 Baclofen 10 MG TID 09/04 2200 AC 09/07 PO 2205 Budesonide/ 2 PUF BID 09/04 2200 AC 09/07 Formoterol Fumarate INH 2206 Ferrous Sulfate 325 MG DAILY 09/05 1000 AC 09/07 PO 0901 Furosemide 40 MG 0600,1800 09/07 0600 AC 09/08 PO 0530 Furosemide 40 MG BID 09/06 1001 DC 09/07 PO 0616 Gabapentin 800 MG 4 TIMES/DAY 09/04 1800 AC 09/07 PO 2204 Heparin Sodium 5,000 UNIT Q8 09/06 2200 AC 09/08 (Porcine) SC 0530 Losartan Potassium 50 MG DAILY 09/06 1001 AC 09/07 PO 0901 Oxycodone HCl 15 MG Q12H 09/06 1900 AC 09/08 PO 0531 Oxycodone HCl 15 MG Q12P PRN 09/05 1300 AC 09/07 PO 1301 Patient Medication 1 ED .STK-MED ONE 09/07 1426 DC Teaching ED 09/07 1427 Prednisone 10 MG DAILY 09/05 1000 AC 09/07 PO 0902 Risedronate 35 MG ONCE A WEEK@0600 09/07 0600 AC 09/07 PO 0616 Vitamin A/Vitamin D 1 JENNIFER DAILY NEEDED 09/04 1800 AC TOP Assessment/Plan Assessment: His a middle-age man with a past history of COPD/interstitial lung disease, congestive heart failure, chronic kidney disease, peripheral neuropathy (on chronic opiate use), is being evaluated for confusion and increased sedation. Admission diagnosis: #1 opiate overdose (prescribed medication) #2 pleural effusion secondary to CHF. Below is the problem list and plan: #1 increased confusion, sleepiness-likely due to opiate overdose, which improved on the use of Narcan. Decreased the dose of OxyContin. Taper as needed. Continue to monitor closely. Change the dose of OxyContin to 15 mg by mouth twice a day and oxycodone to 15 mg 3 times a day. #2 leukocytosis, abnormal x-ray finding-since the patient had recent inhalational lung injury, staph aureus pneumonia needs to be higher in the differential. No antibiotics unless clinically indicated. #3 anemia-low H&H. Anemia of chronic disease. He has a history of glomerulosclerosis (nondiabetic) nephrotic range proteinuria. Continue to monitor closely. #4 acute kidney injury-serum creatinine improving. Restarted losartan and furosemide. May increase the dose of losartan 100 mg by mouth daily. Monitor closely. #5 multiple leg wounds-on examination, wounds appear purulent. No signs of cellulitis such as extensive erythema, tenderness not seen. Currently antibiotics are not required. Continue to monitor closely. Wound care as per previous recommendations by Dr. Vaughan. Discussed with Cristina- Wound care nurse involved in the care. #6 DVT prophylaxis-heparin. #7 interstitial lung disease-continue prednisone at 10 mg per day. Elevated white count could likely be due to prednisone use. Problem List: 1. Overdose 2. Substance abuse 3. Respiratory failure Pain Ratin Pain Location: Bilateral lower extremities Pain Goal: Pain 4 or less Pain Plan: Tylenol when necessary OxyContin Oxycodone Tomorrow's Labs & Rationales: No labs necessary. The patient to be discharged. CHANDRIKA GOINS MD 09/08/16 1209: Attending Review Statement Attending Statement Attending Statement: examined this patient, discuss w/resident/PA/CROWN BLOCKER, agreed w/resident/PA/CROWN BLOCKER, reviewed EMR data (avail), discussed with nursing, discussed with case mgmt, reviewed images, amended to note Attending Assessment/Plan: Patient seen and examined, overall doing better but said that he is still in pain. Patient was admitted with altered mental status likely secondary to high- dose off pain medications. His narcotics dose has been adjusted. O2 requirement back to baseline. Vital Signs Date Time Temp Pulse Resp B/P Pulse O2 O2 Flow FiO2 Ox Delivery Rate 09/08 1034 97.7 113 22 110/80 96 09/08 1013 110 128/76 09/08 0632 98.0 88 20 126/74 97 Nasal 2.5L Cannula 09/08 0000 Nasal 2.5L Cannula 09/07 2359 99.0 102 20 150/76 96 Nasal 2.5L Cannula 09/07 2237 98 99 09/07 1935 95 Nasal 2.5L Cannula 09/07 1600 Nasal 2.5L Cannula 09/07 1352 97.6 106 20 150/60 96 Room Air on exam; aox3, nad. cv; s1, s2, rrr resp; clear abd; soft, nt, bs+ ext; no edema. no labs. A/P; 51 y/o M withb pmh sig for chronic respiratory failure with COPD on 2.5 L of oxygen at home as well as prednisone dependent, heart failure with a preserved EF, CKD and opiate dependence, recently discharged from [facility] now admitted with the confusion and altered mental status likely secondary to opioid overdose. Currently his pain medications have been adjusted. Patient is awake and alert. He still complaining of pain but we explained to the patient that due to his chronic respiratory failure and COPD we have to find a balance between his pain control as well as his mental state and respirations. Patient is now back to his home oxygen at 2.5 L. Medically stable for discharge but he has some social issues at home. Initially physical therapy recommended rehabilitation but now he is doing much better that they are recommending home with home services. Patient is otherwise medically stable for discharge home today with home services. We have consulted social service director for his home situation.
[2016-09-08 10:34] VITALS: BP 110/80
[2016-09-08] MEDS ORDERED: OXYCODONE HCL5 M1 PO (11:54)
[2016-09-08] MEDS ORDERED: OXYCONTIN15 M1 PO (11:54)
[2016-09-08 14:23] VITALS: BP 110/70
[2016-09-08 16:58] VITALS: BP 140/90
[2016-12-07] MEDS ORDERED: PREDNISONE10 M2 PO (15:53)
[2016-12-07] MEDS ORDERED: FOSAMAX70 M1 PO (15:53)
[2016-12-07] MEDS ORDERED: AMITRIPTYLINE150 M2 PO (15:54)
[2016-12-07] MEDS ORDERED: METOLAZONE (15:55)
[2016-12-07] MEDS ORDERED: OXYCODONE HCL30 M1 PO (15:56)
[2016-12-07] MEDS ORDERED: FUROSEMIDE40 M1 PO (15:56)
[2016-12-07] MEDS ORDERED: OXYCONTIN40 M1 PO (15:56)
[2016-12-07] MEDS ORDERED: NEURONTIN800 M2 PO (15:56)
== END 2016-09-08 18:30 | disposition home health service (06) | DRG 918 ==
LOC: ERH 13:02 → ERHI 16:34 → 2NA 16:34
PROVIDERS: Internal Medicine Endocrinology, Diabetes & Metabolism; Physician Assistant Medical; Student in an Organized Health Care Education/Training Program; ADMIT Internal Medicine
DX: T40.2X1A Poisoning by other opioids, accidental (unintentional), initial encounter (principal); G62.81 Critical illness polyneuropathy; N17.9 Acute kidney failure, unspecified; I13.0 Hypertensive heart and chronic kidney disease with heart failure and stage 1 through stage 4 chronic kidney disease, or unspecified chronic kidney disease; I50.32 Chronic diastolic (congestive) heart failure; J44.9 Chronic obstructive pulmonary disease, unspecified; N18.9 Chronic kidney disease, unspecified; N26.9 Renal sclerosis, unspecified; E78.5 Hyperlipidemia, unspecified; D64.9 Anemia, unspecified; Z99.81 Dependence on supplemental oxygen; Y92.009 Unspecified place in unspecified non-institutional (private) residence as the place of occurrence of the external cause
CPT/HCPCS: 2NAP; 36415; 80307; 81001; 82436; 87070; 93005; 93010; 96372; 96374; 97110-GO; 97116-GO; 97161-GP; 97530-GO; 99291; J1644; J2310; J3490; J7512

== ENCOUNTER 2016-10-06 03:29 | Inpatient (IN) | payer OTHER ==
[~2016-10-06] VITALS: Ht 177.8 cm; Wt 84.8 kg
[~2016-10-06 03:29] MED LIST changes: +FERROUS SULFAT325 M3 PO; +OXYCODONE HCL5 M1 PO
--- NOTE | 2016-10-06 03:38 | NUR ---
DR LEI AT BEDSIDE FOR EVAL.
--- NOTE | 2016-10-06 03:38 | ED AMS/SEIZURE/WEAK/DIZZY ---
History of Present Illness General Chief Complaint: General Adult Stated Complaint: BIBA AMS, ?SEIZURE Source: old records, EMS Exam Limitations: unable to give history Vital Signs & Intake/Output Vital Signs & Intake/Output Vital Signs Date Time Temp Pulse Resp B/P Pulse O2 O2 Flow FiO2 Ox Delivery Rate 10/06 0516 98.0 114 22 144/73 93 Nasal 2.0L Cannula 10/06 0444 100 20 103/56 99 Nasal 2.0L Cannula 10/06 0338 98.0 109 19 90/53 98 Room Air Allergies Coded Allergies: Iodinated Contrast Media - Oral and (IODINATED CONTRAST MEDIA - IV DYE) (RED RASH TOLERATES WITH BENADRYL 01/12/16) Reconcile Medications Albuterol Sulfate (Proair Hfa) 90 MCG HFA.AER.AD 2 PUF INH Q4-6 PRN PRN BREATHING PROBLEMS (Reported) Albuterol Sulfate 2.5 MG/3 ML (0.083 %) VIAL.NEB 1 Vial INH/[place] Q4-6H PRN COPD (Reported) Amitriptyline HCl 150 MG TABLET 1 TAB PO QPM NEUROPATHY (Reported) Aspirin (Ecotrin*) 81 MG TABLET.DR 1 TAB PO DAILY HEART/BLOOD (Reported) Baclofen 10 MG TABLET 1 TAB PO TID MUSCLE SPASMS (Reported) Ferrous Sulfate 325 MG (65 MG IRON) TABLET 1 TAB PO DAILY ANEMIA (Reported) Fluticasone-Salmeterol (Advair 100-50 Diskus) 100 MCG-50 MCG/DOSE BLST.W.DEV 1 PUF INH BID COPD (Reported) Furosemide (Lasix) 40 MG TABLET 1 TAB PO BID DIURETIC (Reported) Gabapentin (Neurontin) 800 MG TABLET 1 TAB PO 4 TIMES/DAY NEUROPATHY ( Reported) Losartan Potassium (Cozaar) 50 MG TABLET 1 TAB PO DAILY BP (Reported) Oxycodone HCl (Oxycontin) 15 MG TAB.ER.12H 15 MG PO Q12H pain Oxycodone HCl 5 MG TABLET 15 MG PO Q8P PRN pain 7-10 Prednisone 10 MG TABLET 1 TAB PO DAILY COPD /INTERSTITIAL LUNG DISEAS AFTER FINISHING PREDNISONE TAPER. Risedronate Sodium (Actonel) 35 MG TABLET 1 TAB PO QMON BONE (Reported) Triage Note: PT BIBA FROM HOME. PER EMS PT WAS FOUND UNRESPONSICE BY FRIENDS. PT IS NEWLY DIAGNOSED WITH SEIZURES PER EMS. FRIENDS LAST SAW PT NORMAL AROUND 2:10AM. PT ARRIVES TO ED RESPONSIVE ONLY TO PAIN. Triage Nurses Notes Reviewed? yes Onset: Gradual Duration: minute(s): Timing: single episode today Injury Environment: home Severity: moderate Modifying Factors: Improves With: rest. Associated Symptoms: decreased responsiveness HPI: 51-year-old gentleman recently diagnosed with partial seizures presents with decreased responsiveness. She was last seen at 2 10 in the morning. Approximately at 3 AM he was found to be obtunded and minimally responsive staring off to the right, consistent with his prior episodes of seizure. O2 sat was 89% on room air in the field per the medics. Past History Travel History Traveled to [place] past 21 day No Medical History Any Pertinent Medical History? 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 No Review of Systems Review of Systems Constitutional: Reports: no symptoms. EENTM: Reports: no symptoms. Respiratory: Reports: no symptoms. Cardiovascular: Reports: no symptoms. GI: Reports: no symptoms. Genitourinary: Reports: no symptoms. Musculoskeletal: Reports: no symptoms. Skin: Reports: no symptoms. Neurological/Psychological: Reports: no symptoms. Hematologic/Endocrine: Reports: no symptoms. Immunologic/Allergic: Reports: no symptoms. All Other Systems: Reviewed and Negative Physical Exam Physical Exam General Appearance: well developed/nourished, lethargic Head: atraumatic Eyes: Bilateral: normal appearance, PERRL, EOMI, other (pupils 2 mm equal responsive). Ears, Nose, Throat: normal pharynx, normal ENT inspection Neck: normal inspection, supple, full range of motion Respiratory: normal breath sounds, chest non-tender, no respiratory distress, quiet respiration, lungs clear Cardiovascular: regular rate/rhythm Gastrointestinal: normal bowel sounds, soft, non-tender, no organomegaly Rectal: normal exam, heme negative stool Back: normal inspection, normal range of motion Extremities: normal range of motion, lower left leg with ulcerations, chronic in appearance. Neurologic/Psych: very lethargic, minimally responsive to vigorous stimuli Reflexes: 0: bicep (R), bicep (L), knee (R), knee (L). Skin: intact, ulcerations and chronic erythematous skin changes on left lower extremity Core Measures ACS in differential dx? No CVA/TIA Diagnosis: No Severe Sepsis Present: No Septic Shock Present: No Progress Differential Diagnosis: alcohol intoxication, CVA/stroke, dehydration, drug intoxication, electrolyte imbalance Plan of Care: Orders Procedure Date/time Status Nothing by Mouth 10/06 B Active TRC EVALUATION (GEN) 10/06 541 Active Pathway - chart 10/06 541 Active House Staff 10/06 541 Active Patient Data 10/06 541 Active Code Status 10/06 541 Active Patient Data 10/06 0515 Active Skin/Pressure Ulcer Assess (Sk 10/06 0454 Active TYPE & SCREEN (NOT X-MATCH) 10/06 0449 Active Add-on Test (ER Only) 10/06 0435 Active Admit to inpatient 10/06 043 Active LEUKOCYTE POOR (PACKED CELLS) 10/06 0433 Active Add-on Test (ER Only) 10/06 0426 Active BLOOD CULTURE 10/06 0420 Active CULTURE,URINE 10/06 0418 Active BLOOD CULTURE 10/06 0418 Active LACTIC ACID 10/06 0355 Complete ARTERIAL BLOOD GAS (GEN) 10/06 0351 Active Straight Cath 10/06 0338 Active Intake & Output 10/06 0338 Active URINE DRUG SCREEN FOR ER ONLY 10/06 0338 Active URINALYSIS 10/06 0338 Active PROLACTIN 10/06 033 Complete LIPASE 10/06 033 Complete ETHANOL 10/06 0338 Complete COMPREHENSIVE METABOLIC PANEL 10/06 337 Complete CBC WITHOUT DIFFERENTIAL 10/06 337 Complete AMYLASE 10/06 337 Complete EKG 10/06 337 Active VTE Mechanical Prophylaxis 10/06 UNK Active Current Medications Sig/Silvana Start time Last Medication Dose Stop Time Status Admin Heparin Sodium 5,000 UNIT Q8 10/06 0600 UNVr (Porcine) Acetaminophen 1,000 MG Q6P PRN 10/06 0545 UNVr (Ofirmev) Sodium Chloride 1,000 ML .Q10H 10/06 0545 UNVr (Normal Saline 0.9%) Naloxone HCl 0.8 MG ONCE ONE 10/06 0500 UNVr (Narcan) 10/06 0501 Laboratory Tests 10/06/16 0523: Methadone Screen Pending, Barbiturate Screen Pending, Ur Phencyclidine Scrn Pending, Amphetamines Screen Pending, U Benzodiazepines Scrn Pending, Urine Cocaine Screen Pending, Urine Cannabis Screen Pending, Urine Color YEL, Urine Clarity CLEAR, Urine pH 6.0, Ur Specific Fortine 1.020, Urine Protein >=300 H, Urine Ketones NEG, Urine Nitrite NEG, Urine Bilirubin NEG, Urine Urobilinogen 0.2, Ur Leukocyte Esterase NEG, Ur Microscopic SEDIMENT EXAMINED, Urine RBC Pending, Urine Hemoglobin SMALL H, Urine Glucose NEG 10/06/16 0410: pH 7.35, pCO2 41, pO2 71 L, HCO3 22, ABG O2 Sat (Measured) 90.0 L, P-50 (Temp Corrected) Y, Carboxyhemoglobin 3.6, O2 Concentration % 2 LPM, Temperature 98.0, O2 Delivery Method N/C, Phlebotomy Draw Site LEFT RADIAL 10/06/16 0355: Anion Gap 4 L, Estimated GFR 59 L, BUN/Creatinine Ratio 12.3, Glucose 72, Lactic Acid 1.0, Calcium 7.5 L, Total Bilirubin 0.2, AST 13 L, ALT 24, Alkaline Phosphatase 140 H, Total Protein 4.8 L, Albumin 1.7 L, Globulin 3.1, Albumin/Globulin Ratio 0.5 L, Amylase 84, Lipase 60, Prolactin 27.5 H, CBC w Diff MAN DIFF ORDERED, RBC 2.66 L, MCV 78.7 L, MCH 25.4 L, RDW 19.9 H, MPV 5.8 L, Gran % 89.3 H, Lymphocytes % 5.9 L, Monocytes % 3.8, Eosinophils % 0.7 , Basophils % 0.3, Absolute Granulocytes 31.3 H, Segmented Neutrophils 91 H, Band Neutrophils 2, Absolute Lymphocytes 2.1, Lymphocytes 6 L, Monocytes 1 L, Absolute Monocytes 1.3 H, Absolute Eosinophils 0.3, Absolute Basophils 0.1, Platelet Estimate INCREASED, Polychromasia 1+, Hypochromic-Microcytic 1+, Poikilocytosis 1+, Basophilic Stippling SLIGHT, Anisocytosis 1+, Microcytic Cells 1+, Ovalocytes 1+, PUBS MCHC 32.3 L, Fld Total RBCs Counted 100, Serum Alcohol < 10.0 Microbiology 10/06 522 URINE ROUT: Urine Culture - RECD 10/06 449 BLOOD: Blood Culture - RECD 10/06 444 BLOOD: Blood Culture - RECD Diagnostic Imaging: Viewed by Me: Radiology Read, CT Scan. Discussed w/RAD: Radiology Read, CT Scan. Radiology Impression: head ct... motion artifact... no acute pathology CXR Impression: chronic lung disease w/ interstitial edema Initial ED EKG: RBBB, no acute changes Comments: PATIENT: TORSTEN CHAUDHARI PRESENT AGE: 51 PATIENT ACCOUNT NO: [id number] : [birth year] LOCATION: [facility] ORDERING PHYSICIAN: MEÑO LEI MD SERVICE DATE: 10/06/16 EXAM TYPE: CAT - CT HEAD WO IV CONTRAST EXAMINATION: CT HEAD WITHOUT CONTRAST CLINICAL INFORMATION: Mental status change COMPARISON: CT of head 08/26/2016 TECHNIQUE: Contiguous axial imaging was performed from the skull base to vertex without intravenous administration of contrast. DLP: 1058.32 mGy-cm FINDINGS: There is motion degrading the study. There is no evidence of acute intracranial hemorrhage or territorial infarction. No abnormal mass effect or midline shift is seen. Ham to white matter differentiation is well preserved. No extra-axial fluid collections are identified. The ventricles are normal in size. There is no abnormal attenuation within the brain parenchyma. The osseous structures and soft tissues are normal. The mastoid air cells and visualized portions of the paranasal sinuses are well aerated. IMPRESSION: No acute intracranial pathology. DICTATED BY: MARK SANDERS MD DATE/TIME DICTATED:10/06/16526 BOTTLING LINE OPERATOR:LAURA DATE/TIME TRANSCRIBED:10/06/16526 CONFIDENTIAL, DO NOT COPY WITHOUT APPROPRIATE AUTHORIZATION. <Electronically signed in Other Vendor System> SIGNED BY: MARK SANDERS MD 10/06/16 0532 PATIENT: TORSTEN CHAUDHARI PRESENT AGE: 51 PATIENT ACCOUNT NO: [id number] : 69 LOCATION: [facility] ORDERING PHYSICIAN: MEÑO LEI MD SERVICE DATE: 10/06/168 EXAM TYPE: RAD - XRY-PORTABLE CHEST XRAY EXAMINATION: XR PORTABLE CHEST CLINICAL INFORMATION: Hypoxia. COMPARISON: Multiple prior studies. Most recent exam Chest x-ray 09/04/2016 TECHNIQUE: Portable AP portable view of the chest was obtained. 3:35 AM FINDINGS: Patient has known interstitial lung disease as seen on CT chest 12/22/2015. There is chronic increased interstitial lung markings. The severity of the interstitial lung disease is worse than the exam of 08/26/2016 suggesting an underlying element of interstitial edema. No dense consolidation. No large pleural effusion. Changes of avascular necrosis of both the right and left humeral head IMPRESSION: Patient has known interstitial lung disease. There is increased lung markings that are worse than the exam of 08/26/2016 suggesting superimposed interstitial edema.. DICTATED BY: MARK SANDERS MD DATE/TIME DICTATED:10/06/16433 BOTTLING LINE OPERATOR:LAURA DATE/TIME TRANSCRIBED:10/06/16433 CONFIDENTIAL, DO NOT COPY WITHOUT APPROPRIATE AUTHORIZATION. <Electronically signed in Other Vendor System> SIGNED BY: MARK SANDERS MD 10/06/16442 Departure Departure Disposition: STILL A PATIENT Condition: Stable Clinical Impression Primary Impression: Altered mental status Secondary Impressions: Anemia, Pneumonia, Sepsis, Shock Referrals: YULI FRAZIER MD (PCP/Family) Departure Forms: Customer Survey General Discharge Information Comments pt given narcan 0.8mg sc with good response. Admission Note Spoke With: CALIN SEPULVEDA MD Documentation of Exam: Documentation of any treatments & extenuating circumstances including Concerns Regarding Discharge (functional status, medication knowledge or non-compliance, living conditions, etc.) that warrant an admission rather than observation: pt with several issues: shock, anemia, pneumonia vs pulmonary edema, mental status change (seizure vs overdose).... pt merits blood transfusion, supplemental oxygen, monitoring of mental status. Critical Care Note Critical Care Note Critical Care Time: 30-74 min
--- NOTE | 2016-10-06 03:59 | NUR ---
(PATIENT ARRIVES TO ER FROM FRIENDS HOUSE WEARING A SWEATER, BOXER SHORTS AND A WRIST WATCH, NO POCKETS; ALL MEDS IN ER GIVEN TO RN BY EMS IN LARGE ZIPLOCK BAG, NO NARCOTICS NOTED.)
--- NOTE | 2016-10-06 04:00 | NUR ---
1 BELONGINGS BAG REMAINS IN ROOM W/ PATIENT. 1 BAG OF PATIENT'S MED BOTTLES BROUGHT TO ER PLACED IN VALUABLES BAG AND SENT TO PHARMACY.
--- NOTE | 2016-10-06 04:01 | NUR ---
RESP PAGED FOR ABG. PORTABLE XRAY AT BEDSIDE.
[2016-10-06 04:10] LABS: ABSOLUTE BASOPHIL COUNT 0.1 /CUMM (0.0-0.2); ABSOLUTE EOSINOPHIL COUNT 0.3 /CUMM (0.0-0.7); ABSOLUTE GRANULOCYTE CT 31.3 /CUMM (1.4-6.5); ABSOLUTE LYMPH COUNT 2.1 /CUMM (1.2-3.4); ABSOLUTE MONOCYTE COUNT 1.3 /CUMM (0.10-0.60); BASOPHIL % 0.3 % (0.0-2.0); EOSINOPHIL % 0.7 % (0-5); GRANULOCYTE % 89.3 % (42.2-75.2); MEAN CORPUSCULAR HGB 25.4 PG (27.0-31.0); MEAN CORPUSCULAR HGB CONC 32.3 G/DL (33.0-37.0); MEAN CORPUSCULAR VOLUME 78.7 FL (80.0-94.0); MEAN PLATELET VOLUME 5.8 FL (7.4-10.4); PLATELET COUNT 410 /CUMM (130-400); RBC DISTRIBUTION WIDTH 19.9 % (11.5-14.5); RED BLOOD CELL CT 2.66 /CUMM (4.70-6.10)
--- NOTE | 2016-10-06 04:10 | NUR ---
PATIENT NOTED W/ RA SAT 87-88%, PLACED ON 2LNC, PATIENT CURRENTLY 99% ON 2LNC.
[2016-10-06 04:14] LABS: WHITE BLOOD CELL COUNT 35.1 /CUMM (4.8-10.8)
--- NOTE | 2016-10-06 04:16 | NUR ---
CRITICAL TEST RESULTS [id number] TORSTEN CHAUDHARI 51 Uriel TESTS AND RESULTS: WBC 35.1, HG 6.8, HCT 21.0 Results received and read back by: YNES CHILDS Results received date and time: 10/06/16 0417 The following provider was notified of the results, and read the results back: DR LEI Notified date and time: 10/06/16 at 0417
--- NOTE | 2016-10-06 04:43 | RADIOLOGY REPORT ---
EXAMINATION: XR PORTABLE CHEST CLINICAL INFORMATION: Hypoxia. COMPARISON: Multiple prior studies. Most recent exam Chest x-ray 09/04/2016 TECHNIQUE: Portable AP portable view of the chest was obtained. 3:35 AM FINDINGS: Patient has known interstitial lung disease as seen on CT chest 12/22/2015. There is chronic increased interstitial lung markings. The severity of the interstitial lung disease is worse than the exam of 08/26/2016 suggesting an underlying element of interstitial edema. No dense consolidation. No large pleural effusion. Changes of avascular necrosis of both the right and left humeral head IMPRESSION: Patient has known interstitial lung disease. There is increased lung markings that are worse than the exam of 08/26/2016 suggesting superimposed interstitial edema..
--- NOTE | 2016-10-06 04:50 | NUR ---
PATIENT MEDICATED W/ NARCAN SQ PER EMAR. TOLERATED WELL. REMAINS UNRESPONSIVE TO VERBAL/ PAINFUL STIMULI.
--- NOTE | 2016-10-06 04:54 | NUR ---
HOSP IV EST #20 RIGHT FOREARM. HOSP DRESSING APPLIED TO PREHOSP IV TO LAC. OLD XEROFORM DRESSING REMOVED FROM ULCERS TO L CALF, NEW XEROFORM GAUZE DRESSING APPLIED TO L CALF. SKIN MAN COMPLETED. WOUND CONSULT ORDERED. PATIENT LLEXT NOTED TO BE WEEPING CLEAR FLUID. PATIENT TURNED/ REPOSITIONED, REDNESS NOTED TO ENTIRE BUTTOCKS, BLANCHABLE, APPROX HALF DOLLAR SIZED WOUND NOTED TO INNER R BUTT NEAR ANUS. SUPPORTIVE PILLOWS PLACED. GUIAC NEGATIVE BY PA STUDENT. PATIENT STRAIGHT CATHED FOR URINE SPECIMEN, APPROX 400ML DARK YELLOW URINE OBTAINED, SPECIMEN SENT TO LAB. PATIENT'S URETHRA NOT VISUALIZED D/T SEVERE RETRACTION OF PENIS. BOTH SETS OF BLOOD CULTURES OBTAINED AND SENT TO LAB.
--- NOTE | 2016-10-06 05:06 | NUR ---
PATIENT NOW AWAKE, ALERT TO PLACE AND RESPONSIVE TO HIS NAME. PATIENT UNABLE TO STATE CORRECT YEAR/ PRESIDENT. PATIENT TWITCHING FREQUENTLY. MD LEI AWARE AND TO BEDSIDE TO REEVALUATE. PATIENT TO GO TO CT SCAN AT THIS TIME W/ CHIDI QUICK W/ MONITOR.
--- NOTE | 2016-10-06 05:15 | NUR ---
PATIENT RETURNED FROM CT BY STRETCHER. REMAINS AWAKE, MOANING AND TWITCHING. NOT ANSWERING RN QUESTIONS FOR ASSESSMENT, GRIPPING RN HANDS W/ GOOD STRENGTH. REPLACED ON CHILDREN'S SERVICE WORKER IN ROOM, HR:114.
--- NOTE | 2016-10-06 05:24 | NUR ---
[facility] INFUSING PER EMAR, EST BY YNES MURILLO. TOLERATING WELL.
--- NOTE | 2016-10-06 05:32 | CT SCAN REPORT ---
EXAMINATION: CT HEAD WITHOUT CONTRAST CLINICAL INFORMATION: Mental status change COMPARISON: CT of head 08/26/2016 TECHNIQUE: Contiguous axial imaging was performed from the skull base to vertex without intravenous administration of contrast. DLP: 1058.32 mGy-cm FINDINGS: There is motion degrading the study. There is no evidence of acute intracranial hemorrhage or territorial infarction. No abnormal mass effect or midline shift is seen. Ham to white matter differentiation is well preserved. No extra-axial fluid collections are identified. The ventricles are normal in size. There is no abnormal attenuation within the brain parenchyma. The osseous structures and soft tissues are normal. The mastoid air cells and visualized portions of the paranasal sinuses are well aerated. IMPRESSION: No acute intracranial pathology.
--- NOTE | 2016-10-06 05:53 | History & Physical ---
MICHAEL HULL,[facility] 10/06/16 0548: General Information and HPI MD Statement: I have seen and personally examined TORSTEN CHAUDHARI and documented this H&P. The patient is a 51 year old M who presented with a patient stated chief complaint of [unresponsiveness]. 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 He was last see normal at 2 AM, after which he was found to be unresponsive at 3 AM. In the field, his O2 saturation was 88-89% . On arrival in the ED, he was responsive only to pain. He was placed on a NC at 2.0 L and saturations were found to increase to 99%. He was then medicated with Narcan, but remained unresponsive. He then became responsive to his name and was awake, alert to place. At the time, he was also able to follow commands. Of note, he was recently discharged from on 09/08 after an admission for increased somnolence and confusion. He has been on opioids and was continued on Oxycontin and Oxycodone 15 mg TID. He was discharged on a prescription of 8 tabs and was asked to see a pain management doctor. Allergies/Medications Allergies: Coded Allergies: Iodinated Contrast Media - Oral and (IODINATED CONTRAST MEDIA - IV DYE) (RED RASH TOLERATES WITH BENADRYL 01/12/16) Home Med list Albuterol Sulfate (Proair Hfa) 90 MCG HFA.AER.AD 2 PUF INH Q4-6 PRN PRN BREATHING PROBLEMS (Reported) Albuterol Sulfate 2.5 MG/3 ML (0.083 %) VIAL.NEB 1 Vial INH/[place] Q4-6H PRN COPD (Reported) Amitriptyline HCl 150 MG TABLET 1 TAB PO QPM NEUROPATHY (Reported) Aspirin (Ecotrin*) 81 MG TABLET.DR 1 TAB PO DAILY HEART/BLOOD (Reported) Baclofen 10 MG TABLET 1 TAB PO TID MUSCLE SPASMS (Reported) Ferrous Sulfate 325 MG (65 MG IRON) TABLET 1 TAB PO DAILY ANEMIA (Reported) Fluticasone-Salmeterol (Advair 100-50 Diskus) 100 MCG-50 MCG/DOSE BLST.W.DEV 1 PUF INH BID COPD (Reported) Furosemide (Lasix) 40 MG TABLET 1 TAB PO BID DIURETIC (Reported) Gabapentin (Neurontin) 800 MG TABLET 1 TAB PO 4 TIMES/DAY NEUROPATHY ( Reported) Losartan Potassium (Cozaar) 50 MG TABLET 1 TAB PO DAILY BP (Reported) Oxycodone HCl (Oxycontin) 15 MG TAB.ER.12H 15 MG PO Q12H pain Oxycodone HCl 5 MG TABLET 15 MG PO Q8P PRN pain 7-10 Prednisone 10 MG TABLET 1 TAB PO DAILY COPD /INTERSTITIAL LUNG DISEAS AFTER FINISHING PREDNISONE TAPER. Risedronate Sodium (Actonel) 35 MG TABLET 1 TAB PO QMON BONE (Reported) Compliance With Home Meds: UNKNOWN Past History Travel History Traveled to [place] past 21 day No Medical History Neurological: peripheral neuropathy (critical illness neuropathy) EENT: NONE Cardiovascular: CHF, hypertension, hyperlipidemia, right-sided heart failure Respiratory: COPD, 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), ARDS and prolonged mechanical ventilation Gastrointestinal: NONE Hepatic: NONE Renal: chronic kidney disease Musculoskeletal: OSTEOPENIA 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 Psychiatric: NONE Endocrine: diabetes Blood Disorders: anemia Cancer(s): NONE 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 spouse, child Services at Home: Oxygen Primary Language: Czech Living Will? yes Functional Ability ADLs Independent: dressing, eating, toileting, bathing. Ambulation: cane IADLs Needs Assist: food prep, medication admin. Exam & Diagnostic Data Last 24 Hrs of Vital Signs/I&O Vital Signs Date Time Temp Pulse Resp B/P Pulse O2 O2 Flow FiO2 Ox Delivery Rate 10/06 0516 98.0 114 22 144/73 93 Nasal 2.0L Cannula 10/06 0444 100 20 103/56 99 Nasal 2.0L Cannula 10/06 0338 98.0 109 19 90/53 98 Room Air Intake & Output 10/06 0800 10/06 0000 10/05 1600 Intake Total 1000 Output Total 400 Balance 600 Intake, IV 1000 Intake, Oral 0 Output, Urine 400 Patient 189 lb Weight Physical Exam General Appearance somnolent, not oriented to time, place or person Skin lesions present on the left lower extremity 2/2 venous stasis and the coccyx HEENT Atraumatic, rt pupil is dilated, fixed and unresponsive to light lt pupil is dilated but responsive to light Neck Supple Cardiovascular Regular Rate, Normal S1, Normal S2, No Murmurs Lungs velcro rales heard bilaterally, no wheezing or crackles noted Abdomen Normal Bowel Sounds, Soft, No Tenderness Neurological Strength at 5/5 X4 Ext, Normal Tone, Sensation Intact Extremities 1+ edema present in both lower extremities Last 24 Hrs of Labs/Alonso: Laboratory Tests 10/06/16 0523: Urine Opiates Screen Pending, Methadone Screen Pending, Barbiturate Screen Pending, Ur Phencyclidine Scrn Pending, Amphetamines Screen Pending, U Benzodiazepines Scrn Pending, Urine Cocaine Screen Pending, Urine Cannabis Screen Pending, Urine Color YEL, Urine Clarity CLEAR, Urine pH 6.0, Ur Specific [place] 1.020, Urine Protein >=300 H, Urine Ketones NEG, Urine Nitrite NEG, Urine Bilirubin NEG, Urine Urobilinogen 0.2, Ur Leukocyte Esterase NEG, Ur Microscopic SEDIMENT EXAMINED, Urine RBC Pending, Urine Hemoglobin SMALL H, Urine Glucose NEG 10/06/16 0410: pH 7.35, pCO2 41, pO2 71 L, HCO3 22, ABG O2 Sat (Measured) 90.0 L, P-50 (Temp Corrected) Y, Carboxyhemoglobin 3.6, O2 Concentration % 2 LPM, Temperature 98.0, O2 Delivery Method N/C, Phlebotomy Draw Site LEFT RADIAL 10/06/16 6417: Anion Gap 4 L, Estimated GFR 59 L, BUN/Creatinine Ratio 12.3, Glucose 72, Lactic Acid 1.0, Calcium 7.5 L, Total Bilirubin 0.2, AST 13 L, ALT 24, Alkaline Phosphatase 140 H, Total Protein 4.8 L, Albumin 1.7 L, Globulin 3.1, Albumin/Globulin Ratio 0.5 L, Amylase 84, Lipase 60, Prolactin 27.5 H, CBC w Diff MAN DIFF ORDERED, RBC 2.66 L, MCV 78.7 L, MCH 25.4 L, RDW 19.9 H, MPV 5.8 L, Gran % 89.3 H, Lymphocytes % 5.9 L, Monocytes % 3.8, Eosinophils % 0.7 , Basophils % 0.3, Absolute Granulocytes 31.3 H, Segmented Neutrophils 91 H, Band Neutrophils 2, Absolute Lymphocytes 2.1, Lymphocytes 6 L, Monocytes 1 L, Absolute Monocytes 1.3 H, Absolute Eosinophils 0.3, Absolute Basophils 0.1, Platelet Estimate INCREASED, Polychromasia 1+, Hypochromic-Microcytic 1+, Poikilocytosis 1+, Basophilic Stippling SLIGHT, Anisocytosis 1+, Microcytic Cells 1+, Ovalocytes 1+, PUBS MCHC 32.3 L, Fld Total RBCs Counted 100, Serum Alcohol < 10.0 Microbiology 10/06 546 LOWER RESP: Respiratory Culture - ORD 10/06 546 LOWER RESP: Gram Stain - ORD 10/06 522 URINE ROUT: Urine Culture - RECD 10/06 449 BLOOD: Blood Culture - RECD 10/06 0445 BLOOD: Blood Culture - RECD Diagnostic Data EKG Results ST with RBBB and LAFB CXR Results IMPRESSION: Patient has known interstitial lung disease. There is increased lung markings that are worse than the exam of 08/26/2016 suggesting superimposed interstitial edema.. Other Results CT HEAD WO IV CONTRAST: IMPRESSION: No acute intracranial pathology. Assessment/Plan Assessment: 51 y/o M with h/o CHF, HTN, COPD, ILD on chronic steroids who presents to the ED with complaints of unresponsiveness. He was given Narcan in the ED and responded to it. His respiratory status and blood pressure improved. His Utox was found to have elevated opiate levels. Patient is being admitted to the ICU for unresponsiveness possibly secondary to opiate overdose. Labs: Leukocytosis, Creatinine 1.3, Prolactin 27.5, ABG shows: 7.35/41/71// Problem List: 1) Altered Mental Status 2/2 opiate overdose, CT head negative for hemorrhage. 2) Reactive Leukocytosis 3) Acute Kidney Injury 4) Acute Anemia, no evidence of bleeding noted. Plan: * Patient is being admitted to the ICU * Start NS at 100 ml/hr * Has already received broad spectrum antibiotics in the ED. As there are no other signs of infection, will hold off for now. Wait for cultures. * 2 Units PRBC for now. * Please address opiate issue, as he was only discharged with 8 pills, the last time around. * DVT PPx: ALPS 2/2 Anemia * Pain Pathway: Tylenol PRN * Code Status: Full Code for now. As Ranked By This Provider Problem List: 1. Altered mental status Core Measures/Miscellaneous Acute Coronary Syndrome ACS Diagnosis: No Cerebrovascular Accident CVA/TIA Diagnosis: No Congestive Heart Failure CHF Diagnosis: No Venous Thromboembolism VTE Risk Factors: Age > 40 No [facility] VTE prophylaxis d/t: No contraindications No VTE Pharm Prophylaxis d/t: Medical contraindication VTE Diagnosis: No VTE Type: NONE VTE Confirmed by (Test): NONE Severe Sepsis Severe Sepsis Present: No Septic Shock Septic Shock Present: No Miscellaneous Documentation Attending Case Discussed With: Dr. Esteban Kwan Primary Care Physician: YULI FRAZIER MD A Patient sees these Specialists None Level of Patient Care: Critical Care (CRI) Resident Review Statement Resident Statement: admitted by resident Fabio MEZA MD 10/06/16 0918: Review of Systems Review of Systems Constitutional: Reports: malaise, weakness, unexplained weight loss. Denies: chills, diaphoresis, fever. Cardiovascular: Reports: edema, peripheral edema. Denies: chest pain, orthopena, palpitations, syncope. Respiratory: Reports: cough, short of breath, sputum production. Denies: hemoptysis, orthopnea, stridor, wheezing. GI: Denies: abdominal pain, bloating, constipation, diarrhea, distention, bowel incontinence. Genitourinary: Denies: no symptoms. Musculoskeletal: Reports: joint pain. Skin: Reports: erythema. Attending MD Review Statement Attending Statement Attending MD Statement: examined this patient, discuss w/resident/PA/ADMINISTRATIVE ASSISTANT DATA ENTRY, agreed w/resident/PA/ADMINISTRATIVE ASSISTANT DATA ENTRY, reviewed EMR data (avail), reviewed images, amended to note Attending Assessment/Plan: I have personally seen and examined the patient and agree with the resident's assessment and plan as above. The patient is well known to me over the past several years. 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 The patient has had several admissions to the hospital for altered mental status thought to be related to narcotic ingestion. The patient was found unresponsive at 3 AM. His oxygen saturation was 80-89% in the ED. He was responsive to pain only. The patient was even Narcan and eventually responded. In the ED, the patient was further evaluated noting his white blood cell count was 35,000. He was evaluated for a source of sepsis with no clear etiology. He was treated with empiric vancomycin and ceftazidime. Urine tox screen showed a positive opiate level of 827. The patient's hemoglobin was significantly reduced at 6.8. There is no report of bleeding. ABG showed a pH 7.35, PCO2 41, PO2 71, and bicarbonate of 22. Chest x-ray demonstrated possible superimposed interstitial edema. The patient's creatinine is slightly above baseline at 1.3. He is more awake and alert. He cannot recall the events leading up to his admission. Impression: 1. Unresponsiveness thought to be related to opiate intoxication however the patient's opiate level is not significantly elevated. His medications are controlled by his at home. It is unclear if the patient had access to any other opiates or substances. 2. Elevated prolactin level and suggested possible seizure. 3. Severe anemia, without evidence of bleeding. No evidence of hemorrhagic shock. 4. Elevated leukocytosis, on chronic steroids and possibly reactive. We will need to continue to evaluate for source of infection. 5. Acute on chronic CKD, nephrotic syndrome. 6. History of diastolic CHF with increased vascular congestion on CXR. Plan: * Agree with transfusing 2 units of packed red blood cells. * Guaiac all stools. Monitor for bleeding. Call GI if any evidence of bleeding. * Monitor labs every 8 hours today. * Discontinue IV fluids. * Smith catheter for strict I's and O's. * Follow up cultures. * Continue Vanco/Ceftaz empirically. * Check a non-contrast CT chest/abdomen/pelvis. * Consult cardiology - the patient is known to Dr. Willingham. * Monitor for signs of withdrawal from opiates. * Will need to review CMR and restart non-sedating pain medications/home maintenance meds. * Consult respiratory for nebulizer treatments QID. * Psychiatry consult - RE: possible overdose, depression (patient is now homeless and getting . * Neurology consult Re: Possible seizure activity. * DVT prophylaxis at all times. * Will monitor in [facility] and make further recommendations when testing results are available.
--- NOTE | 2016-10-06 05:57 | NUR ---
VANCOMYCIN INFUSING PER EMAR. PT CONTINUES TO REST ON STRETCHER WITH TWITCHING NOTED. PT REMAINS ON HEART MONITOR.
--- NOTE | 2016-10-06 07:15 | NUR ---
PT HAS BED ASSIGNMENT 104. RN NOTIFIED.
--- NOTE | 2016-10-06 07:27 | NUR ---
REPORT FROM KERVIN MURILLO, ASSUMED CARE. PT SLEEPING WITH SNORING RESPIRATIONS. AROUSABLE TO TOUCH.
--- NOTE | 2016-10-06 07:38 | NUR ---
PT TRANSPORTED TO CT SCAN WITH CHIDI TERRY.
--- NOTE | 2016-10-06 07:45 | NUR ---
TO CT SCAN ON MONITOR WITH RAISE DRILLER.
--- NOTE | 2016-10-06 08:00 | NUR ---
UNABLE TO VERIFY HOME MEDS DUE TO CURRENT CIRCUMSTANCES
--- NOTE | 2016-10-06 08:00 | NUR ---
RETURNED FROM CT SCAN.
--- NOTE | 2016-10-06 08:05 | NUR ---
RETUNED FROM LAB WITH PT'S BLOOD, GIVEN TO CHIDI TERRY.
--- NOTE | 2016-10-06 08:15 | NUR ---
OPENS EYES TO VOICE, PUPILS DILATED, LUNGS: BILATERAL COARSE RHONCHI. ABDOMEN FIRME DEISTENDED, FAINT BOWEL SOUNDS. SINUS RHYTHM ON MONITOR.
--- NOTE | 2016-10-06 08:15 | NUR ---
FIRST UNIT PACKED RED BLOOD CELLS STARTED. (0 POS) PRODUCT NO. [id number].
--- NOTE | 2016-10-06 08:30 | NUR ---
SENT BY CHIDI TERRY TO WOOL BUYER BLOOD.
--- NOTE | 2016-10-06 09:00 | NUR ---
REPORT TO ICU, YEE CATHETER INSERTED (DRAINING YELLOW URINE 200 ML).
--- NOTE | 2016-10-06 09:16 | NUR ---
RESPIRATORY TX GIVEN.
--- NOTE | 2016-10-06 09:17 | Admission Certification ---
Admission Certification Certification Statement - As attending physician, I certify that at the time of - admission, based on clinical presentation, severity of - symptoms, need for further diagnostic testing and - therapeutic interventions, and risk of adverse outcomes - without in-hospital treatment, in my clinical assessment, - this patient requires an acute hospital stay for a minimum - of two nights or longer. I have also considered psychsocial - factors such as support system, advanced age, financial - issues, cognitive issues, and failed out-patient treatments, - past re-admission history, safety of patient, and lack of - compliance as applicable. Specific rationale supporting this admission is: Acute anemia, unresponsiveness secondary to opiate intoxication and sepsis. The patient needs to be evaluated and treated in the critical care unit.
--- NOTE | 2016-10-06 09:30 | NUR ---
TO ICU ON MONITOR WITH DIRECT CARE STAFFER.
[2016-10-06 09:45] VITALS: BP 128/70
--- NOTE | 2016-10-06 11:33 | Cons- Cardiology ---
General Information and HPI Consulting Request Date of Consult: 10/06/16 Requested By: DERICK HULL,CALIN Reason for Consult: Hypotension; edema; possible CHF Source of Information: old records Exam Limitations: clinical condition History of Present Illness: 51 year old male well known to me with history of ILD, edema, PAF, etc. Seen by me in the office yesterday. At that time, he had worsening LE edema but was otherwise doing OK other than for home related issues (pending divorce, etc). Subsequently developed mental status changes and unresponsiveness and presented to the ER for further evaluation. Given Narcan with minimal change. NO other obvious CV symptoms. WBC elevated as well. Admitted to the ICU for further evaluation and treatment. Allergies/Medications Allergies: Coded Allergies: Iodinated Contrast Media - Oral and (IODINATED CONTRAST MEDIA - IV DYE) (RED RASH TOLERATES WITH BENADRYL 01/12/16) Home Med List: Albuterol Sulfate (Proair Hfa) 90 MCG HFA.AER.AD 2 PUF INH Q4-6 PRN PRN BREATHING PROBLEMS (Reported) Albuterol Sulfate 2.5 MG/3 ML (0.083 %) VIAL.NEB 1 Vial INH/[place] Q4-6H PRN COPD (Reported) Amitriptyline HCl 150 MG TABLET 1 TAB PO QPM NEUROPATHY (Reported) Aspirin (Ecotrin*) 81 MG TABLET.DR 1 TAB PO DAILY HEART/BLOOD (Reported) Baclofen 10 MG TABLET 1 TAB PO TID MUSCLE SPASMS (Reported) Ferrous Sulfate 325 MG (65 MG IRON) TABLET 1 TAB PO DAILY ANEMIA (Reported) Fluticasone-Salmeterol (Advair 100-50 Diskus) 100 MCG-50 MCG/DOSE BLST.W.DEV 1 PUF INH BID COPD (Reported) Furosemide (Lasix) 40 MG TABLET 1 TAB PO BID DIURETIC (Reported) Gabapentin (Neurontin) 800 MG TABLET 1 TAB PO 4 TIMES/DAY NEUROPATHY ( Reported) Losartan Potassium (Cozaar) 50 MG TABLET 1 TAB PO DAILY BP (Reported) Oxycodone HCl (Oxycontin) 40 MG TAB.ER.12H 1 TAB PO BID pain meds (Reported) Oxycodone HCl (Oxycontin) 15 MG TAB.ER.12H 15 MG PO Q12H pain Oxycodone HCl 5 MG TABLET 15 MG PO Q8P PRN pain 7-10 Prednisone 10 MG TABLET 1 TAB PO DAILY COPD /INTERSTITIAL LUNG DISEAS AFTER FINISHING PREDNISONE TAPER. Risedronate Sodium (Actonel) 35 MG TABLET 1 TAB PO QMON BONE (Reported) Current Medications: Current Medications Sig/Silvana Start time Last Medication Dose Route Stop Time Status Admin Acetaminophen 1,000 MG Q6P PRN 10/06 0545 AC IV Albuterol Sulfate 3 ML ONCE ONE 10/06 0915 DC 10/06 INH 10/06 0916 0909 Ceftazidime 0 .STK-MED ONE 10/06 0455 DC .ROUTE Ceftazidime 1,000 MG ONCE ONE 10/06 0430 DC 10/06 IV 10/06 0431 0524 Heparin Sodium 5,000 UNIT Q8 10/06 0600 CAN (Porcine) SC Naloxone HCl 0.8 MG ONCE ONE 10/06 0500 DC IV 10/06 0501 Naloxone HCl 0 .STK-MED ONE 10/06 0453 DC .ROUTE Naloxone HCl 0 .STK-MED ONE 10/06 0442 DC .ROUTE Naloxone HCl 0 .STK-MED ONE 10/06 0440 DC .ROUTE Naloxone HCl 0.8 MG ONCE ONE 10/06 0400 DC 10/06 SC 10/06 0401 0450 Sodium Chloride 1,000 ML .Q10H 10/06 0545 DC 10/06 IV 0827 Sodium Chloride 1,000 ML BOLUS ONE 10/06 0345 DC 10/06 IV 10/06 0444 0345 Sodium Chloride 1,000 ML BOLUS ONE 10/06 0345 DC 10/06 IV 10/06 0444 0450 Vancomycin HCl 0 .STK-MED ONE 10/06 0454 DC .ROUTE Vancomycin HCl 1,000 MG ONCE ONE 10/06 0430 DC 10/06 Dextrose/Water 250 ML IV 10/06 0529 0554 Past History Travel History Traveled to [place] past 21 day No Medical History Blood Transfusion Hx: Yes Neurological: peripheral neuropathy (critical illness neuropathy) EENT: NONE Cardiovascular: CHF, hypertension, hyperlipidemia, right-sided heart failure Respiratory: COPD, 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), ARDS and prolonged mechanical ventilation Gastrointestinal: NONE Hepatic: NONE Renal: chronic kidney disease Musculoskeletal: OSTEOPENIA 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 spouse, child Services at Home: Oxygen Primary Language: Maltese Smoking Status: Current Everyday Smoker Living Will? yes Functional Ability ADLs Independent: dressing, eating, toileting, bathing. Ambulation: cane IADLs Needs Assist: food prep, medication admin. ECHO Results (as available) Report: CONCLUSIONS 1. This was a technically difficult and somewhat limited examination due to the patient's body habitus. 2. Minimal to mild aortic sclerosis is present with no evidence of valvular stenosis or insufficiency. 3. Mitral leaflet thickening is present with mild mitral insufficiency and mild left atrial dilatation. 4. There is no significant pericardial fluid present. 5. The left ventricular chamber size and systolic function are normal. Borderline concentric hypertrophy is present. There are no obvious resting wall motion abnormalities. 6. The RV chamber is upper normal in size with mild to moderate tricuspid insufficiency, mild right atrial dilatation and an estimated RV systolic pressure of 42 mmHg. Exam & Diagnostic Data Vital Signs and I&O Vital Signs Date Time Temp Pulse Resp B/P Pulse O2 O2 Flow FiO2 Ox Delivery Rate 10/06 1049 98 Nasal 2.0L Cannula 10/06 0945 97.5 94 14 128/70 96 Nasal 2.0L Cannula 10/06 0910 99 Nasal 2.5L Cannula 10/06 0834 95.8 100 16 102/69 100 Nasal 2.0L Cannula 10/06 0720 96.3 103 18 128/70 95 Nasal 2.0L Cannula 10/06 0558 95 Nasal 2.0L Cannula 10/06 0516 98.0 114 22 144/73 93 Nasal 2.0L Cannula 10/06 0444 100 20 103/56 99 Nasal 2.0L Cannula 10/06 0338 98.0 109 19 90/53 98 Room Air Intake & Output 10/06 1600 10/06 0800 10/06 0000 10/05 1600 10/05 0800 10/05 0000 Intake Total 1000 Output Total 200 400 Balance -200 600 Intake, IV 1000 Intake, Oral 0 Output, Urine 200 400 Patient 189 lb 189 lb Weight Physical Exam: General Appearance Lethargic but arousable and appropriate. Skin lesions present on the left lower extremity 2/2 venous stasis with areas of weeping HEENT Atraumatic, rt pupil is dilated, fixed and unresponsive to light lt pupil is dilated but responsive to light Neck Supple; JVP elevated 3 cm at 45 degrees; carotids normal bilaterally Cardiovascular Regular Rate, Normal S1, Normal S2, No audible Murmurs Lungs bilateral rhonchi Abdomen Normal Bowel Sounds, Soft, No Tenderness Neurological Strength at 5/5 X4 Ext, Normal Tone, Sensation Intact Extremities 1-2+ edema present in both lower extremities; stasis changes and erythema greater on the left side. Labs/Alonso Results: Laboratory Tests 10/06 10/06 0523 0410 Blood Gas pH (7.35 - 7.45 PH) 7.35 pCO2 (35 - 45 TORR) 41 pO2 (80 - 100 TORR) 71 L HCO3 (21 - 28 MEQ/L) 22 ABG O2 Sat (Measured) (>96.0 %) 90.0 L P-50 (Temp Corrected) Y Carboxyhemoglobin (1.5 - 5.0 %) 3.6 O2 Concentration % 2 LPM Temperature (97.0 - 100.0 FARH) 98.0 O2 Delivery Method N/C Miscellaneous Phlebotomy Draw Site LEFT RADIAL Toxicology Urine Opiates Screen (>2000 NG/ML) 827.00 Methadone Screen (>300 NG/ML) 84 Barbiturate Screen (>200 NG/ML) < 60 Ur Phencyclidine Scrn (>25 NG/ML) < 6.00 Amphetamines Screen (>1000 NG/ML) < 100 U Benzodiazepines Scrn (>200 NG/ML) < 85 Urine Cocaine Screen (>300 NG/ML) < 50 Urine Cannabis Screen (>50 NG/ML) < 5.00 Urines Urinalysis MOD H Urine Color (YEL,AMB,STR) YEL Urine Clarity (CLEAR) CLEAR Urine pH (5.0 - 8.0) 6.0 Ur Specific [place] (1.001 - 1.035) 1.020 Urine Protein (NEG,<30 MG/DL) >=300 H Urine Ketones (NEG) NEG Urine Nitrite (NEG) NEG Urine Bilirubin (NEG) NEG Urine Urobilinogen (0.1 - 1.0 EU/dl) 0.2 Ur Leukocyte Esterase (NEG) NEG Ur Microscopic SEDIMENT EXAMINED Urine RBC (0 - 5 /HPF) 3-5 Urine WBC (0 - 2 /HPF) 1-3 H Ur Epithelial Cells (NONE,FEW) RARE Urine Bacteria (NEG/NONE) MOD H Urine Hemoglobin (NEG) SMALL H Urine Glucose (N MG/DL) NEG 10/06 0355 Chemistry Sodium (137 - 145 mmol/L) 134 L Potassium (3.5 - 5.1 mmol/L) 4.1 Chloride (98 - 107 mmol/L) 105 Carbon Dioxide (22 - 30 mmol/L) 25 Anion Gap (5 - 16) 4 L BUN (9 - 20 mg/dL) 16 Creatinine (0.7 - 1.2 mg/dL) 1.3 H Estimated GFR (>60 ml/min) 59 L BUN/Creatinine Ratio (7 - 25 %) 12.3 Glucose (65 - 99 mg/dL) 72 Lactic Acid (0.7 - 2.1 mmol/L) 1.0 Calcium (8.4 - 10.2 mg/dL) 7.5 L Total Bilirubin (0.2 - 1.3 mg/dL) 0.2 AST (17 - 59 U/L) 13 L ALT (21 - 72 U/L) 24 Alkaline Phosphatase (< 127 U/L) 140 H Total Protein (6.3 - 8.2 g/dL) 4.8 L Albumin (3.5 - 5.0 g/dL) 1.7 L Globulin (1.9 - 4.2 gm/dL) 3.1 Albumin/Globulin Ratio (1.1 - 2.2 %) 0.5 L Amylase (30 - 110 U/L) 84 Lipase (23 - 300 U/L) 60 Prolactin (3.7 - 17.9 ng/mL) 27.5 H Hematology CBC w Diff MAN DIFF ORDERED WBC (4.8 - 10.8 /CUMM) 35.1 *H RBC (4.70 - 6.10 /CUMM) 2.66 L Hgb (14.0 - 18.0 G/DL) 6.8 *L Hct (42 - 52 %) 21.0 L MCV (80.0 - 94.0 FL) 78.7 L MCH (27.0 - 31.0 PG) 25.4 L RDW (11.5 - 14.5 %) 19.9 H Plt Count (130 - 400 /CUMM) 410 H MPV (7.4 - 10.4 FL) 5.8 L Gran % (42.2 - 75.2 %) 89.3 H Lymphocytes % (20.5 - 51.1 %) 5.9 L Monocytes % (1.7 - 9.3 %) 3.8 Eosinophils % (0 - 5 %) 0.7 Basophils % (0.0 - 2.0 %) 0.3 Absolute Granulocytes (1.4 - 6.5 /CUMM) 31.3 H Segmented Neutrophils (42.2 - 75.2 %) 91 H Band Neutrophils (0.0 - 5.0 %) 2 Absolute Lymphocytes (1.2 - 3.4 /CUMM) 2.1 Lymphocytes (20.5 - 51.1 %) 6 L Monocytes (1.7 - 9.3 %) 1 L Absolute Monocytes (0.10 - 0.60 /CUMM) 1.3 H Absolute Eosinophils (0.0 - 0.7 /CUMM) 0.3 Absolute Basophils (0.0 - 0.2 /CUMM) 0.1 Platelet Estimate (ADEQUATE) INCREASED Polychromasia 1+ Hypochromic-Microcytic 1+ Poikilocytosis 1+ Basophilic Stippling SLIGHT Anisocytosis 1+ Microcytic Cells 1+ Ovalocytes 1+ PUBS MCHC (33.0 - 37.0 G/DL) 32.3 L Other Body Source Fld Total RBCs Counted (%) 100 Toxicology Serum Alcohol (<10 MG/DL) < 10.0 Diagnostic Data CXR Results FINDINGS: Patient has known interstitial lung disease as seen on CT chest 12/22/2015. There is chronic increased interstitial lung markings. The severity of the interstitial lung disease is worse than the exam of 08/26/2016 suggesting an underlying element of interstitial edema. No dense consolidation. No large pleural effusion. Changes of avascular necrosis of both the right and left humeral head IMPRESSION: Patient has known interstitial lung disease. There is increased lung markings that are worse than the exam of 08/26/2016 suggesting superimposed interstitial edema.. Assessment/Plan Assessment/Plan Assessment: 1. Mental status changes; possibly opiate related 2. Leukocytosis 3. DEE 4. ILD 5. PAF 6. Worsening anemia Recommendations: - COntinue as per the ICU team - Elevate legs; wound care; consider SHELLIE wraps if tolerated. WHen BP and labs stable, restart gentle diuresis with negative fluid balance. - Cultures pending - Followup labs in AM - NO need to repeat echocardiogram at the present time - GI input pending Consult Acknowledgment - Thank you for your consult request.
--- NOTE | 2016-10-06 11:55 | CT SCAN REPORT ---
EXAMINATION: CT ABDOMEN AND PELVIS WITHOUT CONTRAST CLINICAL INFORMATION: Fall in hematocrit. Assess for source of bleeding. COMPARISON: CT scan of the abdomen and pelvis 05/09/2009. TECHNIQUE: Multidetector volumetric imaging was performed from the superior aspect of the liver through the pubic symphysis. Sagittal and coronal reformatted images were obtained on the technologist's workstation. DLP: 589.28 mGy-cm FINDINGS: LUNG BASES: There is prominence of the interstitial markings in the lower zones bilaterally. There are areas of mosaic attenuation in both lungs. There appear to be bronchiectatic changes at the left base. There is mild bilateral pleural thickening. The heart is normal in size. There is trace pericardial effusion. LIVER, GALLBLADDER, AND BILIARY TREE: The liver is normal in size, shape, and attenuation. No focal hepatic lesion or biliary ductal dilatation is present. The gallbladder is unremarkable with no evidence of radiopaque gallstones, gallbladder wall thickening, or obvious pericholecystic inflammatory changes. PANCREAS: Unremarkable. SPLEEN: The spleen is normal in size and density. ADRENAL GLANDS: The adrenal glands are not enlarged. KIDNEYS AND URETERS: The kidneys are normal in size, shape, and attenuation. No hydronephrosis, hydroureter, or calculi seen. No perinephric stranding. No retroperitoneal hemorrhage is noted. BLADDER: The bladder is partially distended and appears unremarkable. GASTROINTESTINAL TRACT: There is a small hiatal hernia. There is soft tissue fullness in the left lateral and posterior aspect of the esophagus distally, and there are paraesophageal prominent lymph nodes measuring up to 1.5 cm (image 9/91). The small bowel is unremarkable. The appendix appears normal in caliber; it has relatively dense contents, but there is no evidence of periappendiceal inflammatory change. There is moderate stool within the large bowel. No evidence of hemorrhage within the bowel is seen. ABDOMINAL WALL: There are no large abdominal wall hernias. There is diffuse increased density within the subcutaneous soft tissues, consistent with mild anasarca. LYMPH NODES: There is no retroperitoneal or pelvic lymphadenopathy. VASCULAR: There are relatively extensive atheromatous calcifications of the aorta and its branches. PELVIC VISCERA: The prostate gland is not enlarged. There is no free fluid in the pelvis. OSSEOUS STRUCTURES: There are severe degenerative changes of the bilateral hips, worse on the left. There are no acute osseous findings. IMPRESSION: 1. There is soft tissue fullness in the left lateral and posterior aspect of the esophagus distally, and there are prominent parapharyngeal lymph nodes. This may be consistent with neoplastic or severe inflammatory change in the esophagus. This could be further evaluated with fluoroscopic barium swallow or direct visualization. 2. There are interstitial lung changes at the bases. 3. There is evidence of anasarca in the subcutaneous soft tissues. 4. There are severe degenerative changes in the left greater than right hips.
--- NOTE | 2016-10-06 13:08 | Event Note ---
Event Note Event Note: A CT abdomen/pelvis was done today, revealed evidence of soft tissue fullness in the left lateral and posterior aspect of the esophagus distally, and paraesophageal prominent lymph nodes measuring up to 1.5 cm (image ). 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 GI has been consulted for further evaluation, in mean while he is receiving 2 units of blood transfusion, will monitor post transfusion H&H and guaic all stools.
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
--- NOTE | 2016-10-06 13:41 | NUR ---
@1200-EEG BEING DONE AT BEDSIDE AT THIS TIME. 2ND UNIT PRBC INFUSING. PT NSAOPHARNGEAL SUCTIONED BY RN AND RT-OBTAINED LARGE AMT OF MOODY CREAMY SECRETIONS, LRC SENT. CONT TO MONITOR CLOSELY.
--- NOTE | 2016-10-06 13:43 | Cons- Neurology ---
General Information and HPI Consulting Request Date of Consult: 10/06/16 Requested By: DERICK HULL,CALIN History of Present Illness: 51-year-old male with multiple medical problems including CHF, hypertension, COPD and interstitial lung disease secondary to prior inhalation injury -on chronic steroid therapy, who was admitted after being found unresponsive. He has a history of substance abuse in the past and has been maintained on oxycodone. He has had multiple admissions with altered mental status. He reportedly is, at times, poorly compliant with his therapeutic regimen. Per the housestaff, there are multiple social issues which have exacerbated his overall status. White blood cell count on admission was elevated at 35,000. He has severe stasis changes in his lower extremities with multiple areas of broken skin and question of superimposed cellulitis. Allergies/Medications Allergies: Coded Allergies: Iodinated Contrast Media - Oral and (IODINATED CONTRAST MEDIA - IV DYE) (RED RASH TOLERATES WITH BENADRYL 01/12/16) Home Med List: Albuterol Sulfate (Proair Hfa) 90 MCG HFA.AER.AD 2 PUF INH Q4-6 PRN PRN BREATHING PROBLEMS (Reported) Albuterol Sulfate 2.5 MG/3 ML (0.083 %) VIAL.NEB 1 Vial INH/[place] Q4-6H PRN COPD (Reported) Amitriptyline HCl 150 MG TABLET 1 TAB PO QPM NEUROPATHY (Reported) Aspirin (Ecotrin*) 81 MG TABLET.DR 1 TAB PO DAILY HEART/BLOOD (Reported) Baclofen 10 MG TABLET 1 TAB PO TID MUSCLE SPASMS (Reported) Ferrous Sulfate 325 MG (65 MG IRON) TABLET 1 TAB PO DAILY ANEMIA (Reported) Fluticasone-Salmeterol (Advair 100-50 Diskus) 100 MCG-50 MCG/DOSE BLST.W.DEV 1 PUF INH BID COPD (Reported) Furosemide (Lasix) 40 MG TABLET 1 TAB PO BID DIURETIC (Reported) Gabapentin (Neurontin) 800 MG TABLET 1 TAB PO 4 TIMES/DAY NEUROPATHY ( Reported) Losartan Potassium (Cozaar) 50 MG TABLET 1 TAB PO DAILY BP (Reported) Oxycodone HCl (Oxycontin) 15 MG TAB.ER.12H 15 MG PO Q12H pain Oxycodone HCl 5 MG TABLET 15 MG PO Q8P PRN pain 7-10 Prednisone 10 MG TABLET 1 TAB PO DAILY COPD /INTERSTITIAL LUNG DISEAS AFTER FINISHING PREDNISONE TAPER. Risedronate Sodium (Actonel) 35 MG TABLET 1 TAB PO QMON BONE (Reported) Review of Systems Review of Systems: Unobtainable due to his mental status Past History Travel History Traveled to [place] past 21 day No Medical History Blood Transfusion Hx: Yes Neurological: peripheral neuropathy (critical illness neuropathy) EENT: NONE Cardiovascular: CHF, hypertension, hyperlipidemia, right-sided heart failure Respiratory: COPD, 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), ARDS and prolonged mechanical ventilation Gastrointestinal: NONE Hepatic: NONE Renal: chronic kidney disease Musculoskeletal: OSTEOPENIA 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 spouse, child Services at Home: Oxygen Primary Language: Macedonian Smoking Status: Current Everyday Smoker Living Will? yes Functional Ability ADLs Independent: dressing, eating, toileting, bathing. Ambulation: cane IADLs Needs Assist: food prep, medication admin. Exam & Diagnostic Data Vital Signs and I&O Vital Signs Date Time Temp Pulse Resp B/P Pulse O2 O2 Flow FiO2 Ox Delivery Rate 10/06 1200 96 Nasal 2.0L Cannula 10/06 1145 97 Nasal 4.0L Cannula 10/06 1049 98 Nasal 2.0L Cannula 10/06 0945 97.5 94 14 128/70 96 Nasal 2.0L Cannula 10/06 0910 99 Nasal 2.5L Cannula 10/06 0834 95.8 100 16 102/69 100 Nasal 2.0L Cannula 10/06 0720 96.3 103 18 128/70 95 Nasal 2.0L Cannula 10/06 0558 95 Nasal 2.0L Cannula 10/06 0516 98.0 114 22 144/73 93 Nasal 2.0L Cannula 10/06 0444 100 20 103/56 99 Nasal 2.0L Cannula 10/06 0338 98.0 109 19 90/53 98 Room Air Intake & Output 10/06 1600 10/06 0800 10/06 0000 Intake Total 1000 Output Total 200 400 Balance -200 600 Intake, IV 1000 Intake, Oral 0 Output, Urine 200 400 Patient 189 lb 189 lb Weight Middle-aged male, lethargic though arousable and easily agitated. The head was normocephalic. He knew we was in the hospital. He could name the current Pres. Speech was fluent. He was poorly cooperated with further attempts at the mental status examination. Pupils were equal. Extraocular movements were full. Face was symmetric. There was no drift of the upper extremities. There was no gross lateralizing weakness. Deep tendon reflexes were diffusely hypoactive. Plantar responses were flexor. Examination was unreliable. Gait was untested. An EEG was completed in my presence. This showed no clear epileptiform activity. There was mild generalized slowing of the background rhythm, occasional triphasic waves and random sharps without paroxysmal features. Assessment/Plan Assessment: Mr. Monge presents with an episode of unresponsiveness and neurological features of a toxic/metabolic encephalopathy or delirium. His examination is nonfocal. His EEG shows no true seizure-like activity. One would wish to rule out infection, drug ingestion or other mild metabolic derangements though there is no clear, significant abnormality on his initial metabolic profile. Recommendations: From our neurological standpoint he should be managed medically and infection to be ruled out. No further neurodiagnostic studies are currently being contemplated. The EEG will be read officially later today. CT on admission was negative. Please feel free to call with any further questions. Indication for Cosmo Monge Consult Acknowledgment - Thank you for your consult request.
--- NOTE | 2016-10-06 13:50 | ELECTROENCEPHALOGRAM REPORT ---
Electroencephalogram Report Electroencephalogram Results Date of service: 10/06/16 Attending MD: CALIN SEPULVEDA MD Supplier Quality Engineering Manager: Nhi Whittaker EEG Number: [id number] Test Utilizes: 10-20 system, 21 lead 18 channel digital recording Pertinent Hx/Physical/Neuro Findings/Clin Diagnosis: Found unresponsive. Rule out seizure. Inpatient Medications: Current Medications Sig/Silvana Start time Last Medication Dose Route Stop Time Status Admin Acetaminophen 1,000 MG Q6P PRN 10/06 0545 AC IV Albuterol Sulfate 3 ML ONCE ONE 10/06 0915 DC 10/06 INH 10/06 0916 0909 Ceftazidime 0 .STK-MED ONE 10/06 0455 DC .ROUTE Ceftazidime 1,000 MG ONCE ONE 10/06 0430 DC 10/06 IV 10/06 043 0524 Heparin Sodium 5,000 UNIT Q8 10/06 0600 CAN (Porcine) SC Naloxone HCl 0.8 MG ONCE ONE 10/06 0500 DC IV 10/06 0501 Naloxone HCl 0 .STK-MED ONE 10/06 0453 DC .ROUTE Naloxone HCl 0 .STK-MED ONE 10/06 0442 DC .ROUTE Naloxone HCl 0 .STK-MED ONE 10/06 0440 DC .ROUTE Naloxone HCl 0.8 MG ONCE ONE 10/06 0400 DC 10/06 SC 10/06 0401 0450 Sodium Chloride 1,000 ML .Q10H 10/06 0545 DC 10/06 IV 0827 Sodium Chloride 1,000 ML BOLUS ONE 10/06 0345 DC 10/06 IV 10/06 0444 0345 Sodium Chloride 1,000 ML BOLUS ONE 10/06 0345 DC 10/06 IV 10/06 0444 0450 Vancomycin HCl 0 .STK-MED ONE 10/06 0454 DC .ROUTE Vancomycin HCl 1,000 MG ONCE ONE 10/06 0430 DC 10/06 Dextrose/Water 250 ML IV 10/06 0529 0554 Interpretation: The predominant posterior background rhythm consists of poorly modulated 5-6 cps activity. Lower voltage faster frequencies were seen over the anterior head regions bilaterally. Occasional triphasic waves and random sharps are noted however there are no sustained paroxysmal or epileptiform features. Movement artifact obscures portions of the tracing. Hyperventilation and photic stimulation were deferred. Impression: Abnormal EEG due to generalized slowing of the background rhythm consistent with diffuse cerebral dysfunction. No focal or epileptiform features were noted. The above abnormalities are nonspecific and may be seen with a host of global brain insults, medications and metabolic derangements.
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
[2016-10-06 16:00] VITALS: BP 110/60
[2016-10-06 16:12] LABS: ABSOLUTE BASOPHIL COUNT 0.1 /CUMM (0.0-0.2); ABSOLUTE EOSINOPHIL COUNT 0.5 /CUMM (0.0-0.7); ABSOLUTE GRANULOCYTE CT 15.4 /CUMM (1.4-6.5); ABSOLUTE LYMPH COUNT 2.5 /CUMM (1.2-3.4); BASOPHIL % 0.6 % (0.0-2.0); EOSINOPHIL % 2.4 % (0-5); GRANULOCYTE % 79.3 % (42.2-75.2); HEMATOCRIT 24.1 % (42-52); MEAN CORPUSCULAR HGB CONC 32.5 G/DL (33.0-37.0); MEAN CORPUSCULAR VOLUME 80.2 FL (80.0-94.0); MEAN PLATELET VOLUME 6.2 FL (7.4-10.4); PLATELET COUNT 318 /CUMM (130-400); RBC DISTRIBUTION WIDTH 18.6 % (11.5-14.5); RED BLOOD CELL CT 3.01 /CUMM (4.70-6.10); WHITE BLOOD CELL COUNT 19.4 /CUMM (4.8-10.8)
--- NOTE | 2016-10-06 16:21 | NUR ---
@1600-SISTER CONCERNED ON MISSING PANTS OF PATIENT. STATES SHE WAS TOLD HIS OXYCONTIN TABS WERE IN HIS PANTS POCKET. PANTS NOT SEEN IN BELONGINGS BAG. THIS RN ATTEMPTED TO FOLLOWUP WITH ER. ER NURSE THAT WAS ON WHEN PT ARRIVED TO ER WILL BE BACK ON DUTY TONIGHT AT 11PM. NO PANTS NOTED IN ER AT THIS TIME. THIS INFORMATION PASSED ON TO SISTER WHO IS NOW NEXT OF KIN-UPDATED ADMITTING. REPEAT LABS DRAWN AT 1500 AND PENDING RESULTS. CONT TO MONITOR CLOSELY. VSS. CALL BRIAN JON. PT MORE AWAKE AT THIS TIME AND ANSWERING QUESTIONS APPROPRIATELY. REMAINS SLOW WITH FOLLOWING COMMANDS.
[2016-10-06] MEDS ORDERED: OXYCONTIN40 M1 PO (17:26)
[2016-10-07] VITALS: BP 130/66
[2016-10-07 00:16] LABS: ABSOLUTE BASOPHIL COUNT 0 /CUMM (0.0-0.2); ABSOLUTE EOSINOPHIL COUNT 0 /CUMM (0.0-0.7); ABSOLUTE GRANULOCYTE CT 15.5 /CUMM (1.4-6.5); ABSOLUTE LYMPH COUNT 0.4 /CUMM (1.2-3.4); ABSOLUTE MONOCYTE COUNT 0 /CUMM (0.10-0.60); BASOPHIL % 0 % (0.0-2.0); EOSINOPHIL % 0.1 % (0-5); HEMATOCRIT 26.6 % (42-52); MEAN CORPUSCULAR HGB 26.4 PG (27.0-31.0); MEAN CORPUSCULAR VOLUME 79.9 FL (80.0-94.0); MEAN PLATELET VOLUME 6.4 FL (7.4-10.4); PLATELET COUNT 331 /CUMM (130-400); RBC DISTRIBUTION WIDTH 18.6 % (11.5-14.5); RED BLOOD CELL CT 3.33 /CUMM (4.70-6.10)
[2016-10-07 05:14] LABS: ABSOLUTE BASOPHIL COUNT 0 /CUMM (0.0-0.2); ABSOLUTE EOSINOPHIL COUNT 0 /CUMM (0.0-0.7); ABSOLUTE GRANULOCYTE CT 13.1 /CUMM (1.4-6.5); ABSOLUTE LYMPH COUNT 0.7 /CUMM (1.2-3.4); ABSOLUTE MONOCYTE COUNT 0.1 /CUMM (0.10-0.60); BASOPHIL % 0 % (0.0-2.0); EOSINOPHIL % 0 % (0-5); GRANULOCYTE % 94.7 % (42.2-75.2); HEMATOCRIT 27.1 % (42-52); MEAN CORPUSCULAR HGB CONC 32.3 G/DL (33.0-37.0); MEAN CORPUSCULAR VOLUME 80.5 FL (80.0-94.0); MEAN PLATELET VOLUME 6.4 FL (7.4-10.4); PLATELET COUNT 368 /CUMM (130-400); RBC DISTRIBUTION WIDTH 19.4 % (11.5-14.5); RED BLOOD CELL CT 3.37 /CUMM (4.70-6.10); WHITE BLOOD CELL COUNT 13.8 /CUMM (4.8-10.8)
[2016-10-07 05:18] LABS: PT 11.6 SEC (9.4-12.5); PTT 32 SEC (25-37)
[2016-10-07 08:00] VITALS: BP 126/70
--- NOTE | 2016-10-07 08:21 | PN- CRCU ---
Subjective HPI/Critical Care Issues: The patient is much more awake and alert today. He reports feeling improved. His MAXIMUM TEMPERATURE overnight was 99.6. His respiratory status remained stable on 2 L nasal cannula. There is no report of bleeding however the patient is guaiac positive. After 2 units of packed red blood cells, the patient's hemoglobin has increased from 6.8 to 8.8. His white blood cell count is now down to 13.8. The patient's CAT scan of the abdomen and pelvis demonstrated soft tissue fullness in the left lateral and posterior aspect of the esophagus distally, with prominent parapharyngeal lymphadenopathy. Interstitial lung changes were seen at the bases. There was generalized anasarca as well as severe generative changes in the left greater than right hips. Objective Current Medications: Current Medications Sig/Silvana Start time Last Medication Dose Route Stop Time Status Admin Acetaminophen 1,000 MG Q6P PRN 10/06 0545 AC IV Albuterol Sulfate 3 ML BID 10/06 2200 AC 10/06 INH 1847 Albuterol Sulfate 3 ML ONCE ONE 10/06 0915 DC 10/06 INH 10/06 0916 0909 Ketorolac 30 MG ONCE ONE 10/06 1815 DC 10/06 Tromethamine IV 10/06 1816 1821 Lidocaine 1 PAT DAILY 10/06 1815 AC 10/06 EXT 2306 Magnesium Sulfate 1 GM ONCE ONE 10/06 1715 DC 10/06 Dextrose/Water 100 ML IV 10/06 2114 1730 Melatonin 5 MG AT BEDTIME 10/06 2300 AC 10/06 PO 2306 Methylprednisolone 20 MG DAILY 10/06 1721 AC 10/06 IV 1822 Oxycodone HCl 15 MG Q12 10/06 2230 AC 10/06 PO 2306 Pantoprazole Sodium 40 MG DAILY 10/06 1755 AC 10/06 IV 1822 Prednisone 10 MG DAILY 10/06 1655 DC PO Sodium Chloride 1,000 ML .Q10H 10/06 0545 DC 10/06 IV 0827 Vital Signs & I&O Last 24 Hrs of Vitals and I&O: Vital Signs Date Time Temp Pulse Resp B/P Pulse O2 O2 Flow FiO2 Ox Delivery Rate 10/07 0400 96 Nasal 2.0L Cannula 10/07 0000 96 Nasal 2.0L Cannula 10/07 0000 99.1 90 22 130/66 96 Nasal 2.0L Cannula 10/07 1999 97 Nasal 2.0L Cannula 10/06 1918 99 Nasal 4.0L Cannula 10/06 1600 97 Nasal 2.0L Cannula 10/06 1600 98.1 96 14 110/60 98 Nasal 2.0L Cannula 10/06 1440 Nasal 4.0L Cannula 10/06 1435 95 Nasal 4.0L Cannula 10/06 1200 96 Nasal 2.0L Cannula 10/06 1145 97 Nasal 4.0L Cannula 10/06 1049 98 Nasal 2.0L Cannula 10/06 0945 97.5 94 14 128/70 96 Nasal 2.0L Cannula 10/06 0910 99 Nasal 2.5L Cannula 10/06 0834 95.8 100 16 102/69 100 Nasal 2.0L Cannula Intake & Output 10/07 1600 10/07 0800 10/07 0000 Intake Total 250 Output Total 750 Balance -500 Intake, IV 150 Intake, Oral 100 Number 0 Bowel Movements Output, Urine 750 Exam General Appearance: no apparent distress, alert, awake Head: atraumatic, normal appearance Neck: supple Respiratory: no respiratory distress, faint bibasilar crackles Cardiovascular: regular rate/rhythm, S1 and S2 heard Abdomen: normal bowel sounds, soft, non-tender Extremities: no edema Skin: warm/dry, left lower extremity bandaged Results Last 24 Hrs of Lab Results: Laboratory Tests 10/07/16 0354: Anion Gap 8, Estimated GFR > 60, Glucose 80, Calcium 7.8 L, Phosphorus 5.6 H, Magnesium 2.1, Total Bilirubin 0.3, AST 21, ALT 26, Albumin 1.7 L, PT 11.6, INR 1.11, APTT 32, CBC w Diff NO MAN DIFF REQ, RBC 3.37 L, MCV 80.5, MCH 26.0 L, RDW 19.4 H, MPV 6.4 L, Gran % 94.7 H, Lymphocytes % 4.8 L, Monocytes % 0.5 L, Eosinophils % 0, Basophils % 0 L, Absolute Granulocytes 13.1 H, Absolute Lymphocytes 0.7 L, Absolute Monocytes 0.1 L, Absolute Eosinophils 0, Absolute Basophils 0, PUBS MCHC 32.3 L 10/06/16 2344: Anion Gap 4 L, Estimated GFR > 60, Glucose 77, Calcium 7.7 L, Phosphorus 4.9 H, Magnesium 2.1, Total Bilirubin 0.3, AST 22, ALT 22, Albumin 1.7 L, CBC w Diff NO MAN DIFF REQ, RBC 3.33 L, MCV 79.9 L, MCH 26.4 L, RDW 18.6 H, MPV 6.4 L, Gran % 97.0 H, Lymphocytes % 2.6 L, Monocytes % 0.3 L, Eosinophils % 0.1, Basophils % 0 L, Absolute Granulocytes 15.5 H, Absolute Lymphocytes 0.4 L, Absolute Monocytes 0 L, Absolute Eosinophils 0, Absolute Basophils 0, PUBS MCHC 33.0 10/06/16 1515: Anion Gap 4 L, Estimated GFR > 60, Glucose 73, Calcium 7.1 L, Phosphorus 5.1 H, Magnesium 1.7, Total Bilirubin 0.5, AST 19, ALT 24, Albumin 1.5 L, CBC w Diff NO MAN DIFF REQ, RBC 3.01 L, MCV 80.2, MCH 26.0 L, RDW 18.6 H, MPV 6.2 L, Gran % 79.3 H, Lymphocytes % 12.7 L, Monocytes % 5.0, Eosinophils % 2.4, Basophils % 0.6, Absolute Granulocytes 15.4 H, Absolute Lymphocytes 2.5, Absolute Monocytes 1.0 H, Absolute Eosinophils 0.5, Absolute Basophils 0.1, PUBS MCHC 32.5 L 10/06/16 1500: Sodium Cancelled, Potassium Cancelled, Chloride Cancelled, Carbon Dioxide Cancelled, Anion Gap Cancelled, BUN Cancelled, Creatinine Cancelled, BUN/ Creatinine Ratio Cancelled 10/06/16 0900: Sodium Cancelled, Potassium Cancelled, Chloride Cancelled, Carbon Dioxide Cancelled, Anion Gap Cancelled, BUN Cancelled, Creatinine Cancelled, BUN/ Creatinine Ratio Cancelled, CBC w Diff Cancelled, WBC Cancelled, RBC Cancelled, Hgb Cancelled, Hct Cancelled, MCV Cancelled, MCH Cancelled, RDW Cancelled, Plt Count Cancelled, MPV Cancelled, PUBS MCHC Cancelled Impression/Plan Impression/Plan Impression/Plan: 1. Altered mental status, opiate intoxication, improved. 2. Elevated prolactin level and suggested possible seizure. 3. Severe anemia, without evidence of bleeding. Guaic + stool. 4. Elevated leukocytosis, on chronic steroids. Probable leukemoid reaction. 5. Chronic CKD, nephrotic syndrome. 6. History of diastolic CHF with increased vascular congestion on CXR. 7. Esophageal mass and parapharyngeal lymphadenopathy, rule out malignancy. 8. Malnutrition. 9. Unstageable wound on left gluteal fold. Recommendations: * NPO. * Upper endoscopy to be done today as per GI. * Monitor for bleeding. * Check a CBC at 4 PM for ongoing follow-up. * Monitor cultures. * Watch off antibiotics. * Monitor the patient on pain pathway. Monitor for withdrawal symptoms. * Continue IV Solu-Medrol (patient on chronic steroids) * Continue IV Protonix. * Skin care protocol in place. * We will request wound care nurse to evaluate the patient's left lower extremity wound. * Will request wound care consult. * DVT prophylaxis held yesterday due to decreased hemoglobin and possibility of bleeding. Will start subcutaneous heparin versus alps today. * Psychiatry and social media campaign manager input to be requested. * Continue all supportive care.
--- NOTE | 2016-10-07 09:11 | PN- Resident CRCU ---
Subjective HPI/CRCU Issues: Patient seen and examined this morning. He was lying comfortably in bed in no acute distress. He was fully awake, alert to time, space and person. He is nothing by mouth for endoscopy today. MAXIMUM TEMPERATURE 99.1, remains on 2 L of nasal cannula oxygen satting in the mid 90s. He also has to get a swallow eval today as his sister reported some choking episodes on food recently. Once he swallows the swallow eval of fluid density diet. 24 Hour Events: No acute overnight events Objective Vital Signs & I&O Last 8 Hrs of Vitals and I&O: Laboratory Tests 10/07/16 0354: Anion Gap 8, Estimated GFR > 60, Glucose 80, Calcium 7.8 L, Phosphorus 5.6 H, Magnesium 2.1, Total Bilirubin 0.3, AST 21, ALT 26, Albumin 1.7 L, PT 11.6, INR 1.11, APTT 32, CBC w Diff NO MAN DIFF REQ, RBC 3.37 L, MCV 80.5, MCH 26.0 L, RDW 19.4 H, MPV 6.4 L, Gran % 94.7 H, Lymphocytes % 4.8 L, Monocytes % 0.5 L, Eosinophils % 0, Basophils % 0 L, Absolute Granulocytes 13.1 H, Absolute Lymphocytes 0.7 L, Absolute Monocytes 0.1 L, Absolute Eosinophils 0, Absolute Basophils 0, PUBS MCHC 32.3 L 10/06/16 2344: Anion Gap 4 L, Estimated GFR > 60, Glucose 77, Calcium 7.7 L, Phosphorus 4.9 H, Magnesium 2.1, Total Bilirubin 0.3, AST 22, ALT 22, Albumin 1.7 L, CBC w Diff NO MAN DIFF REQ, RBC 3.33 L, MCV 79.9 L, MCH 26.4 L, RDW 18.6 H, MPV 6.4 L, Gran % 97.0 H, Lymphocytes % 2.6 L, Monocytes % 0.3 L, Eosinophils % 0.1, Basophils % 0 L, Absolute Granulocytes 15.5 H, Absolute Lymphocytes 0.4 L, Absolute Monocytes 0 L, Absolute Eosinophils 0, Absolute Basophils 0, PUBS MCHC 33.0 10/06/16 1515: Anion Gap 4 L, Estimated GFR > 60, Glucose 73, Calcium 7.1 L, Phosphorus 5.1 H, Magnesium 1.7, Total Bilirubin 0.5, AST 19, ALT 24, Albumin 1.5 L, CBC w Diff NO MAN DIFF REQ, RBC 3.01 L, MCV 80.2, MCH 26.0 L, RDW 18.6 H, MPV 6.2 L, Gran % 79.3 H, Lymphocytes % 12.7 L, Monocytes % 5.0, Eosinophils % 2.4, Basophils % 0.6, Absolute Granulocytes 15.4 H, Absolute Lymphocytes 2.5, Absolute Monocytes 1.0 H, Absolute Eosinophils 0.5, Absolute Basophils 0.1, PUBS MCHC 32.5 L 10/06/16 1500: Sodium Cancelled, Potassium Cancelled, Chloride Cancelled, Carbon Dioxide Cancelled, Anion Gap Cancelled, BUN Cancelled, Creatinine Cancelled, BUN/ Creatinine Ratio Cancelled Vital Signs Date Time Temp Pulse Resp B/P Pulse O2 O2 Flow FiO2 Ox Delivery Rate 10/07 1200 Nasal 2.0L Cannula 10/07 1200 99.2 100 18 124/70 99 Nasal 2.0L Cannula 10/07 0800 Nasal 2.0L Cannula 10/07 0800 99.0 98 18 126/70 96 Nasal 2.0L Cannula 10/07 0400 96 Nasal 2.0L Cannula 10/07 0000 96 Nasal 2.0L Cannula 10/07 0000 99.1 90 22 130/66 96 Nasal 2.0L Cannula 10/06 2000 97 Nasal 2.0L Cannula 10/06 1918 99 Nasal 4.0L Cannula 10/06 1600 97 Nasal 2.0L Cannula 10/06 1600 98.1 96 14 110/60 98 Nasal 2.0L Cannula 10/06 1440 Nasal 4.0L Cannula 10/06 1435 95 Nasal 4.0L Cannula Intake & Output 10/07 1600 10/07 0800 10/07 0000 Intake Total 250 Output Total 750 Balance -500 Intake, IV 150 Intake, Oral 100 Number 0 Bowel Movements Output, Urine 750 Exam General Appearance: well developed/nourished, no apparent distress, alert, awake , comfortable Respiratory: normal breath sounds Cardiovascular: regular rate/rhythm Gastrointestinal: normal bowel sounds, soft Extremities: b/l lle edema, left lower ext wrapped Current Medications: Current Medications Sig/Silvana Start time Last Medication Dose Route Stop Time Status Admin Acetaminophen 1,000 MG Q6P PRN 10/06 0545 AC IV Albuterol Sulfate 3 ML BID 10/06 2200 AC 10/07 INH 1045 Ketorolac 30 MG ONCE ONE 10/06 1815 DC 10/06 Tromethamine IV 10/06 181 1821 Lidocaine 1 PAT 2300 10/07 2300 AC EXT Lidocaine 1 PAT DAILY 10/06 1815 DC 10/06 EXT 2306 Magnesium Sulfate 1 GM ONCE ONE 10/06 1715 DC 10/06 Dextrose/Water 100 ML IV 10/064 1730 Melatonin 5 MG AT BEDTIME 10/06 2300 AC 10/06 PO 2306 Methylprednisolone 20 MG DAILY 10/06 1721 DC 10/06 IV 1822 Oxycodone HCl 15 MG Q12 10/06 2230 AC 10/07 PO 1013 Pantoprazole Sodium 40 MG DAILY 10/06 1755 AC 10/07 IV 1013 Prednisone 10 MG DAILY 10/07 1800 AC PO Prednisone 10 MG DAILY 10/06 1655 DC PO Antibiotics Antibiotics? none Impression/Plan Impression/Problem List Impression: 51 y/o M with h/o CHF, HTN, COPD, ILD on chronic steroids who presents to the ED with complaints of unresponsiveness. He was given Narcan in the ED and responded to it. His respiratory status and blood pressure improved. His Utox was found to have elevated opiate levels. Patient admitted to the ICU for unresponsiveness possibly secondary to opiate overdose. Labs upon presentation: Leukocytosis, Creatinine 1.3, Prolactin 27.5, ABG shows: 7.35/41/71/ Problem List: 1) Altered Mental Status 2/2 opiate overdose, CT head negative for hemorrhage. 2) Reactive Leukocytosis 3) Acute Kidney Injury 4) Acute Anemia, no evidence of bleeding noted. Patient currently managed in ICU for following conditions: Respiratory: SHEENT has history of interstitial lung disease, is on 2 L of nasal cannula oxygen at home, currently satting well on 2 L of nasal cannula oxygen in mid 90. Cardiovascular: Patient was hypotensive upon admission, since blood pressure systolic has been ranging between 110s to 130s. Infectious disease; Likely reactive, Patient presented with leukocytosis, CBC 35,000, received one dose of ceftriaxone in the ED, Ever since admission white count is improved 19.4>>16>>13.8, no fever, continue to monitor. Hematological /Gastrointestinal: Patient presented with H&H of 6.8, status post 2 units packed red blood cells transfusion, he was found to be guaiac-positive, GI was consulted, he is scheduled for endoscopy today, will keep monitoring H&H closely. CT scan has showed evidence of distal esophageal questionable mass with paraesophageal lymphadenopathy, GI on board, patient scheduled for endoscopy today. AIlmentary: Patient to get followed up today after endoscopy, nothing by mouth until then, presented outside once clears swallow eval. DVT prophylaxis; Alps Patient is full code Problem List: 1. DVT prophylaxis 2. Full code status 3. Abnormal CT of the abdomen 4. Occult blood positive stool 5. Leukocytosis Pain Ratin Pain Location: Lower extremity Tomorrow's Labs & Rationales: ICU bundle CBC for H&H monitoring Plan DVT/Prophylaxis: mechanical
--- NOTE | 2016-10-07 10:56 | NUR ---
SPEECH THERAPY: ORDER RECEIVED FOR SWALLOW EVALUATION. PT CURRENTLY NPO FOR ENDOSCOPY, UNABLE TO BE SEEN. ST TO CONTINUE TO FOLLOW TOMORROW 10/08. D/W RN AND MD; ALL IN AGREEMENT.
[2016-10-07 12:00] VITALS: BP 124/70
--- NOTE | 2016-10-07 14:47 | NUR ---
Referral received via casefind yesterday. This patient is a 51 year old man,admitted to the hospital early yesterday with shock. Patient known to this policy writer typist from previous recent admissions, which have included accidental opiate overdose. Multiple contacts with family members; of concern was patient is the parent to 3 minor children. Ultimately, after last admission, he was discharged to a local motel; stayed one night and then his cousin invited him to stay with him, as his Crystal asked him not to return home. I observed the patient yesterday; he was receiving a transfusion. Today I met with him. He was alert and oriented; pleasant and engaged in interview. He confirms that he was served with [employer] papers on Tuesday, and admits that it is probably "best" to name his sister Armida as his Healthcare Refrigeration Specialist. Patient having endoscopy in [facility] this afternoon. Will meet with patient tomorrow to assist with [employer] execution. Follow
--- NOTE | 2016-10-07 15:39 | Cons- Psychiatry ---
Psychiatric Consult Date of Consult: 10/07/16 Reason for Consult: "possible overdose, depression" History of Present Illness: Identifying Info: 51-year-old but male well-known to this service brought in by ambulance to [facility] ED on 10/06/2016 post being found unresponsive by friends for suspected seizure. Admitted to medicine with suspected opiate overdose. CC: "I'm thinking about buying a foreclosure." HPI: Pt has 4 recent hospitalizations for similar presentations. On the admission before last family meeting was held with his his sister and hospital staff and plan was made to keep patient's opiates in a lock box. At that time the patient's pain management doctor and primary care were also involved in plan to reduce the patient's opiates. There is also suspicion that a friend or family member may been providing him with benzodiazepines and opiates over what he had been prescribed. The patient was readmitted to the hospital after that plan was made and his subsequently kicked him out of the home and he moved into a trailer with his cousin. This was approximately one month ago by the patient's report. Per house staff report 3 days ago the patient received a letter stating his was filing for divorce. Per his sister's report he had been doing well until that time then appeared to be increasingly altered. PMH : Please see the H&P for a complete listing CHF, HTN, COPD, ILD on chronic steroids Past Psych History: No known Amitriptyline prescribed by patient's PCP Family Psych History: Unobtained Substance History Opiate use disorder, prescribed Benzodiazepine use disorder -Treatment He is in pain management with Dr. Aydin Henriquez who has been decreasing his opiates Family Substance History: Unobtained Social: Unemployed. In the process of divorce. Has 3 children ages 8, 14 and 16. Abuse/Trauma: Denied Current Home Psychotropic Medications: Amitriptyline 150 mg prescribed for pain Current Hospital Psychotropic Medications: Med Melatonin 5 MG PO AT BEDTIME 10/06/16 2300 Allergies: Coded Allergies: Iodinated Contrast Media - Oral and (IODINATED CONTRAST MEDIA - IV DYE) (RED RASH TOLERATES WITH BENADRYL 01/12/16) Current Medications: Current Medications Sig/Silvana Start time Last Medication Dose Route Stop Time Status Admin Acetaminophen 1,000 MG Q6P PRN 10/06 0545 AC IV Albuterol Sulfate 3 ML BID 10/06 2200 AC 10/07 INH 1045 Ketorolac 30 MG ONCE ONE 10/06 1815 DC 10/06 Tromethamine IV 10/06 1816 1821 Lidocaine 1 PAT 2300 10/07 2300 AC EXT Lidocaine 1 PAT DAILY 10/06 1815 DC 10/06 EXT 2306 Magnesium Sulfate 1 GM ONCE ONE 10/06 1715 DC 10/06 Dextrose/Water 100 ML IV 10/06 2114 1730 Melatonin 5 MG AT BEDTIME 10/06 2300 AC 10/06 PO 2306 Methylprednisolone 20 MG DAILY 10/06 1721 DC 10/06 IV 1822 Oxycodone HCl 15 MG Q12 10/06 2230 AC 10/07 PO 1013 Pantoprazole Sodium 40 MG DAILY 10/06 1755 AC 10/07 IV 1013 Prednisone 10 MG DAILY 10/07 1800 AC PO Prednisone 10 MG DAILY 10/06 1655 DC PO Past History Past Medical History Neurological: peripheral neuropathy (critical illness neuropathy) EENT: NONE Cardiovascular: CHF, hypertension, hyperlipidemia, right-sided heart failure Respiratory: COPD, 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), ARDS and prolonged mechanical ventilation Gastrointestinal: hx OB+ stool Hepatic: NONE Renal: chronic kidney disease Musculoskeletal: OSTEOPENIA 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 Psychiatric: depression Endocrine: diabetes Blood Disorders: NONE (multifactorial), anemia Cancer(s): NONE 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 Past Surgical History Surgical History: VENOUS CLOSURE X 5 TO BLE BRONCHOSCOPY Psychosocial History Strengths/Capabilities: "I like to fix things" Physical Limitations (Interventions): The patient has difficulty walking, and is on home oxygen and Bipap/Cpap Psychiatric Treatment History Diagnosis: None prior Risk Factors: chronic/serious med cond., substance abuse, male Substance Use/Abuse History Drug Use/Abuse Substances Used/Abused Yes Substance Abuse Treatment Substance Abuse Treatment Past Substance Abuse [place] No Assessment/Plan Mental Status Mental Status Exam: Mental Status Exam Presentation/Appearance: Cooperative with evaluation. Hospital garb. He is calm. His hair is combed Orientation: x3 Sensorium: Awake and alert Eye contact: Appropriate Affect: Full range congruent with stated mood Mood: Denies any mood disturbance Depression: Denies Anxiety: Denies, then endorses worry his 8-year-old son will not not be well taken care of unless she gets joint custody Thought Content: - Denies SI/HI, AH/VH, PI. States and also believes they will not kill themselves. - Denies Hopeless/Helpless Thoughts Thought Process: Somewhat perseverative on finding housing Speech: Normal tone and rate Judgment: Poor Insight: Poor Cognition: Memory: Short-term deficits noted Attention/Concentration: Grossly intact Pt denies any overuse of perscribed medications or use of illicit substances he declines any treatment for opiate use or psychiatric care. Patient denies any emotional reaction to current living situation or divorce. Lab Results: Laboratory Tests 10/07/16 0354: Anion Gap 8, Estimated GFR > 60, Glucose 80, Calcium 7.8 L, Phosphorus 5.6 H, Magnesium 2.1, Total Bilirubin 0.3, AST 21, ALT 26, Albumin 1.7 L, PT 11.6, INR 1.11, APTT 32, CBC w Diff NO MAN DIFF REQ, RBC 3.37 L, MCV 80.5, MCH 26.0 L, RDW 19.4 H, MPV 6.4 L, Gran % 94.7 H, Lymphocytes % 4.8 L, Monocytes % 0.5 L, Eosinophils % 0, Basophils % 0 L, Absolute Granulocytes 13.1 H, Absolute Lymphocytes 0.7 L, Absolute Monocytes 0.1 L, Absolute Eosinophils 0, Absolute Basophils 0, PUBS MCHC 32.3 L 10/06/16 2344: Anion Gap 4 L, Estimated GFR > 60, Glucose 77, Calcium 7.7 L, Phosphorus 4.9 H, Magnesium 2.1, Total Bilirubin 0.3, AST 22, ALT 22, Albumin 1.7 L, CBC w Diff NO MAN DIFF REQ, RBC 3.33 L, MCV 79.9 L, MCH 26.4 L, RDW 18.6 H, MPV 6.4 L, Gran % 97.0 H, Lymphocytes % 2.6 L, Monocytes % 0.3 L, Eosinophils % 0.1, Basophils % 0 L, Absolute Granulocytes 15.5 H, Absolute Lymphocytes 0.4 L, Absolute Monocytes 0 L, Absolute Eosinophils 0, Absolute Basophils 0, PUBS MCHC 33.0 10/06/16 1515: Anion Gap 4 L, Estimated GFR > 60, Glucose 73, Calcium 7.1 L, Phosphorus 5.1 H, Magnesium 1.7, Total Bilirubin 0.5, AST 19, ALT 24, Albumin 1.5 L, CBC w Diff NO MAN DIFF REQ, RBC 3.01 L, MCV 80.2, MCH 26.0 L, RDW 18.6 H, MPV 6.2 L, Gran % 79.3 H, Lymphocytes % 12.7 L, Monocytes % 5.0, Eosinophils % 2.4, Basophils % 0.6, Absolute Granulocytes 15.4 H, Absolute Lymphocytes 2.5, Absolute Monocytes 1.0 H, Absolute Eosinophils 0.5, Absolute Basophils 0.1, PUBS MCHC 32.5 L 10/06/16 1500: Sodium Cancelled, Potassium Cancelled, Chloride Cancelled, Carbon Dioxide Cancelled, Anion Gap Cancelled, BUN Cancelled, Creatinine Cancelled, BUN/ Creatinine Ratio Cancelled 10/06/16 0900: Sodium Cancelled, Potassium Cancelled, Chloride Cancelled, Carbon Dioxide Cancelled, Anion Gap Cancelled, BUN Cancelled, Creatinine Cancelled, BUN/ Creatinine Ratio Cancelled, CBC w Diff Cancelled, WBC Cancelled, RBC Cancelled, Hgb Cancelled, Hct Cancelled, MCV Cancelled, MCH Cancelled, RDW Cancelled, Plt Count Cancelled, MPV Cancelled, PUBS MCHC Cancelled 10/06/16 0523: Urine Opiates Screen 827.00, Methadone Screen 84, Barbiturate Screen < 60, Ur Phencyclidine Scrn < 6.00, Amphetamines Screen < 100, U Benzodiazepines Scrn < 85, Urine Cocaine Screen < 50, Urine Cannabis Screen < 5.00, Urinalysis MOD H, Urine Color YEL, Urine Clarity CLEAR, Urine pH 6.0, Ur Specific [place] 1.020, Urine Protein >=300 H, Urine Ketones NEG, Urine Nitrite NEG, Urine Bilirubin NEG, Urine Urobilinogen 0.2, Ur Leukocyte Esterase NEG, Ur Microscopic SEDIMENT EXAMINED, Urine RBC 3-5, Urine WBC 1-3 H, Ur Epithelial Cells RARE, Urine Bacteria MOD H, Urine Hemoglobin SMALL H, Urine Glucose NEG 10/06/16 0410: pH 7.35, pCO2 41, pO2 71 L, HCO3 22, ABG O2 Sat (Measured) 90.0 L, P-50 (Temp Corrected) Y, Carboxyhemoglobin 3.6, O2 Concentration % 2 LPM, Temperature 98.0, O2 Delivery Method N/C, Phlebotomy Draw Site LEFT RADIAL 10/06/16 0355: Anion Gap 4 L, Estimated GFR 59 L, BUN/Creatinine Ratio 12.3, Glucose 72, Lactic Acid 1.0, Calcium 7.5 L, Iron 11 L, TIBC 177 L, Ferritin 83.9, Total Bilirubin 0.2, AST 13 L, ALT 24, Alkaline Phosphatase 140 H, Total Protein 4.8 L, Albumin 1.7 L, Globulin 3.1, Albumin/Globulin Ratio 0.5 L, Amylase 84, Lipase 60, Prolactin 27.5 H, CBC w Diff MAN DIFF ORDERED, RBC 2.66 L, MCV 78.7 L, MCH 25.4 L, RDW 19.9 H, MPV 5.8 L, Gran % 89.3 H, Lymphocytes % 5.9 L, Monocytes % 3.8, Eosinophils % 0.7, Basophils % 0.3, Absolute Granulocytes 31.3 H, Segmented Neutrophils 91 H, Band Neutrophils 2, Absolute Lymphocytes 2.1, Lymphocytes 6 L, Monocytes 1 L, Absolute Monocytes 1.3 H, Absolute Eosinophils 0.3, Absolute Basophils 0.1, Platelet Estimate INCREASED, Polychromasia 1+, Hypochromic-Microcytic 1+, Poikilocytosis 1+, Basophilic Stippling SLIGHT, Anisocytosis 1+, Microcytic Cells 1+, Ovalocytes 1+, PUBS MCHC 32.3 L, Fld Total RBCs Counted 100, Serum Alcohol < 10.0 Microbiology 10/06 1150 LOWER RESP: Respiratory Culture - RES GRAM POSITIVE COCCI STAPH AUREUS 10/06 1150 LOWER RESP: Gram Stain - RES 10/06 0945 UPPER RESP: Surveillance Culture - COMP METH RESIST STAPH AUREUS 10/06 0845 GI: Surveillance Culture - COMP 10/06 05 URINE ROUT: Urine Culture - COMP 10/06 449 BLOOD: Blood Culture - RES 10/065 BLOOD: Blood Culture - RES Diffential Diagnosis: Opiate use disorder, severe prescribed Benzodiazepine use disorder Rule out unspecified mood disorder Impression: but in the process of male well-known to this service presents in the context of suspected opiate overdose. This is his fourth recent admission with a similar presentation. Of note the patient was recently filed with divorce papers and thrown out of his home. He is minimizing or denying any potential emotional issues surrounding his current situation. Additionally the patient declines any follow-up treatment for his opiate use or any mental health issues. He is not a threat to himself or others at this time but does exhibit poor insight and judgment. Provisional Treatment Plan: 1. Continue to offer patient support and encourage follow-up care for opiate use disorder. 2. Please include the following and patient's discharge instructions "If you would like to seek mental health or substance abuse treatment please call to inquire about an intake appointment with [facility] outpatient psychiatric services or intensive outpatient program." Thank you for including psychiatry in this case we will continue to follow only as needed. Michael Lambert APRN, pager [phone]
--- NOTE | 2016-10-07 16:10 | PN- Cardiology ---
Subjective Subjective: Clinically improving. Respiratory status better. No new CV symptoms or issues. Awaiting EGD Objective Vital Signs and I&Os Vital Signs Date Time Temp Pulse Resp B/P Pulse O2 O2 Flow FiO2 Ox Delivery Rate 10/07 1200 Nasal 2.0L Cannula 10/07 1200 99.2 100 18 124/70 99 Nasal 2.0L Cannula 10/07 0800 Nasal 2.0L Cannula 10/07 0800 99.0 98 18 126/70 96 Nasal 2.0L Cannula 10/07 0400 96 Nasal 2.0L Cannula 10/07 0000 96 Nasal 2.0L Cannula 10/07 0000 99.1 90 22 130/66 96 Nasal 2.0L Cannula 10/07 1999 97 Nasal 2.0L Cannula 10/06 1918 99 Nasal 4.0L Cannula Intake & Output 10/07 1600 10/07 0800 10/07 0000 10/06 1600 10/06 0800 10/06 0000 Intake Total 591 085 2085 Output Total 300 750 750 400 Balance -300 -500 50 600 Intake, Blood 800 Product Intake, IV 150 1000 Intake, Oral 100 0 0 Number 0 0 Bowel Movements Output, Urine 300 750 750 400 Patient 189 lb 189 lb Weight Physical Exam: General Appearance More alert and appropriate today Skin lesions present on the left lower extremity 2/2 venous stasis with areas of weeping HEENT Unchanged Neck Supple; JVP elevated 2 cm at 45 degrees; carotids normal bilaterally Cardiovascular Regular Rate, Normal S1, Normal S2, No audible Murmurs Lungs bilateral rhonchi Abdomen Normal Bowel Sounds, Soft, No Tenderness Neurological Strength at 5/5 X4 Ext, Normal Tone, Sensation Intact Extremities 1+ edema present in both lower extremities; stasis changes and erythema greater on the left side. Current Medications: Current Medications Sig/Silvana Start time Last Medication Dose Route Stop Time Status Admin Acetaminophen 1,000 MG Q6P PRN 10/06 0545 AC IV Albuterol Sulfate 3 ML BID 10/06 2200 AC 10/07 INH 1045 Ketorolac 30 MG ONCE ONE 10/06 1814 DC 10/06 Tromethamine IV 10/06 181 1821 Lidocaine 1 PAT 2300 10/07 2300 AC EXT Lidocaine 1 PAT DAILY 10/06 1815 DC 10/06 EXT 2306 Magnesium Sulfate 1 GM ONCE ONE 10/06 1715 DC 10/06 Dextrose/Water 100 ML IV 10/06 2113 1730 Melatonin 5 MG AT BEDTIME 10/06 2300 AC 10/06 PO 2306 Methylprednisolone 20 MG DAILY 10/06 1721 DC 10/06 IV 1822 Oxycodone HCl 15 MG Q12 10/06 2230 AC 10/07 PO 1013 Pantoprazole Sodium 40 MG DAILY 10/06 1755 AC 10/07 IV 1013 Prednisone 10 MG DAILY 10/07 1800 AC PO Prednisone 10 MG DAILY 10/06 1655 DC PO Results Last 48 Hrs of Labs/Mics: Laboratory Tests 10/07/16 0354: Anion Gap 8, Estimated GFR > 60, Glucose 80, Calcium 7.8 L, Phosphorus 5.6 H, Magnesium 2.1, Total Bilirubin 0.3, AST 21, ALT 26, Albumin 1.7 L, PT 11.6, INR 1.11, APTT 32, CBC w Diff NO MAN DIFF REQ, RBC 3.37 L, MCV 80.5, MCH 26.0 L, RDW 19.4 H, MPV 6.4 L, Gran % 94.7 H, Lymphocytes % 4.8 L, Monocytes % 0.5 L, Eosinophils % 0, Basophils % 0 L, Absolute Granulocytes 13.1 H, Absolute Lymphocytes 0.7 L, Absolute Monocytes 0.1 L, Absolute Eosinophils 0, Absolute Basophils 0, PUBS MCHC 32.3 L 10/06/16 2344: Anion Gap 4 L, Estimated GFR > 60, Glucose 77, Calcium 7.7 L, Phosphorus 4.9 H, Magnesium 2.1, Total Bilirubin 0.3, AST 22, ALT 22, Albumin 1.7 L, CBC w Diff NO MAN DIFF REQ, RBC 3.33 L, MCV 79.9 L, MCH 26.4 L, RDW 18.6 H, MPV 6.4 L, Gran % 97.0 H, Lymphocytes % 2.6 L, Monocytes % 0.3 L, Eosinophils % 0.1, Basophils % 0 L, Absolute Granulocytes 15.5 H, Absolute Lymphocytes 0.4 L, Absolute Monocytes 0 L, Absolute Eosinophils 0, Absolute Basophils 0, PUBS MCHC 33.0 10/06/16 1515: Anion Gap 4 L, Estimated GFR > 60, Glucose 73, Calcium 7.1 L, Phosphorus 5.1 H, Magnesium 1.7, Total Bilirubin 0.5, AST 19, ALT 24, Albumin 1.5 L, CBC w Diff NO MAN DIFF REQ, RBC 3.01 L, MCV 80.2, MCH 26.0 L, RDW 18.6 H, MPV 6.2 L, Gran % 79.3 H, Lymphocytes % 12.7 L, Monocytes % 5.0, Eosinophils % 2.4, Basophils % 0.6, Absolute Granulocytes 15.4 H, Absolute Lymphocytes 2.5, Absolute Monocytes 1.0 H, Absolute Eosinophils 0.5, Absolute Basophils 0.1, PUBS MCHC 32.5 L 10/06/16 1500: Sodium Cancelled, Potassium Cancelled, Chloride Cancelled, Carbon Dioxide Cancelled, Anion Gap Cancelled, BUN Cancelled, Creatinine Cancelled, BUN/ Creatinine Ratio Cancelled 10/06/16 0900: Sodium Cancelled, Potassium Cancelled, Chloride Cancelled, Carbon Dioxide Cancelled, Anion Gap Cancelled, BUN Cancelled, Creatinine Cancelled, BUN/ Creatinine Ratio Cancelled, CBC w Diff Cancelled, WBC Cancelled, RBC Cancelled, Hgb Cancelled, Hct Cancelled, MCV Cancelled, MCH Cancelled, RDW Cancelled, Plt Count Cancelled, MPV Cancelled, PUBS MCHC Cancelled 10/06/16 0523: Urine Opiates Screen 827.00, Methadone Screen 84, Barbiturate Screen < 60, Ur Phencyclidine Scrn < 6.00, Amphetamines Screen < 100, U Benzodiazepines Scrn < 85, Urine Cocaine Screen < 50, Urine Cannabis Screen < 5.00, Urinalysis MOD H, Urine Color YEL, Urine Clarity CLEAR, Urine pH 6.0, Ur Specific [place] 1.020, Urine Protein >=300 H, Urine Ketones NEG, Urine Nitrite NEG, Urine Bilirubin NEG, Urine Urobilinogen 0.2, Ur Leukocyte Esterase NEG, Ur Microscopic SEDIMENT EXAMINED, Urine RBC 3-5, Urine WBC 1-3 H, Ur Epithelial Cells RARE, Urine Bacteria MOD H, Urine Hemoglobin SMALL H, Urine Glucose NEG 10/06/16 0410: pH 7.35, pCO2 41, pO2 71 L, HCO3 22, ABG O2 Sat (Measured) 90.0 L, P-50 (Temp Corrected) Y, Carboxyhemoglobin 3.6, O2 Concentration % 2 LPM, Temperature 98.0, O2 Delivery Method N/C, Phlebotomy Draw Site LEFT RADIAL 10/06/16 0355: Anion Gap 4 L, Estimated GFR 59 L, BUN/Creatinine Ratio 12.3, Glucose 72, Lactic Acid 1.0, Calcium 7.5 L, Iron 11 L, TIBC 177 L, Ferritin 83.9, Total Bilirubin 0.2, AST 13 L, ALT 24, Alkaline Phosphatase 140 H, Total Protein 4.8 L, Albumin 1.7 L, Globulin 3.1, Albumin/Globulin Ratio 0.5 L, Amylase 84, Lipase 60, Prolactin 27.5 H, CBC w Diff MAN DIFF ORDERED, RBC 2.66 L, MCV 78.7 L, MCH 25.4 L, RDW 19.9 H, MPV 5.8 L, Gran % 89.3 H, Lymphocytes % 5.9 L, Monocytes % 3.8, Eosinophils % 0.7, Basophils % 0.3, Absolute Granulocytes 31.3 H, Segmented Neutrophils 91 H, Band Neutrophils 2, Absolute Lymphocytes 2.1, Lymphocytes 6 L, Monocytes 1 L, Absolute Monocytes 1.3 H, Absolute Eosinophils 0.3, Absolute Basophils 0.1, Platelet Estimate INCREASED, Polychromasia 1+, Hypochromic-Microcytic 1+, Poikilocytosis 1+, Basophilic Stippling SLIGHT, Anisocytosis 1+, Microcytic Cells 1+, Ovalocytes 1+, PUBS MCHC 32.3 L, Fld Total RBCs Counted 100, Serum Alcohol < 10.0 Microbiology 10/06 944 UPPER RESP: Surveillance Culture - COMP METH RESIST STAPH AUREUS 10/06 944 GI: Surveillance Culture - COMP 10/06 522 URINE ROUT: Urine Culture - COMP Assessment/Plan Assessment/Plan Assessment: 1. Mental status changes; possibly opiate related - improved 2. Leukocytosis 3. DEE; history of nephrotic syndrome 4. ILD 5. PAF 6. Worsening anemia 7. Possible paraesophageal mass with adenopathy Recommendations: - Continue current regimen - EGD pending today - Otherwise continue as per the ICU team - Followup labs pending - Monitor for any further evidence of bleeding - Consider wound care consult - Social Service / COntinuing Care input pending Continue telemetry? Yes
--- NOTE | 2016-10-07 16:47 | NUR ---
Wound Care Aseessment: Patient presents with an unstageable pressure injury to his right gluteal fold measuring 2.5 X 2.5cm that was present on admission, 100% moist yellow fill- with scant serosangenous drainage. Periwound is red and blanchable. Full thickness wounds are also noted to his LLE- ? if this is venous or if its related to edema and fluid. LLE is red with +3 edema. A moderate amount of serous drainage is noted. Wound bed noted to be moist with 100% yellow fill. Recommendations: Apply medihoney to LLE wounds FB xeroform and a DPD- Please loosely wrap with kerlex and remove if swelling to this extremity worsens. Cleanse buttocks wound with normal saline and pat dry- Apply xeroform FB a DPD- If no improvement with the xeroform dressing consider use of medihoney or santyl for this wound. Continue use of catergory 2 mattress- Obtain a nutrition consult. Encourage frequent turning and repositioning. Please follow all additional pressure injury guidelines.
[2016-10-07 16:55] LABS: ABSOLUTE EOSINOPHIL COUNT 0.2 /CUMM (0.0-0.7); ABSOLUTE GRANULOCYTE CT 11.5 /CUMM (1.4-6.5)
[2016-10-07 16:57] LABS: ABSOLUTE BASOPHIL COUNT 0 /CUMM (0.0-0.2); ABSOLUTE LYMPH COUNT 2.7 /CUMM (1.2-3.4); ABSOLUTE MONOCYTE COUNT 1.1 /CUMM (0.10-0.60); BASOPHIL % 0.3 % (0.0-2.0); EOSINOPHIL % 1.4 % (0-5); GRANULOCYTE % 73.5 % (42.2-75.2); HEMATOCRIT 26.2 % (42-52); MEAN CORPUSCULAR HGB 25.8 PG (27.0-31.0); MEAN CORPUSCULAR HGB CONC 32.2 G/DL (33.0-37.0); MEAN CORPUSCULAR VOLUME 80.3 FL (80.0-94.0); MEAN PLATELET VOLUME 6.2 FL (7.4-10.4); PLATELET COUNT 382 /CUMM (130-400); RBC DISTRIBUTION WIDTH 19.2 % (11.5-14.5); RED BLOOD CELL CT 3.26 /CUMM (4.70-6.10); WHITE BLOOD CELL COUNT 15.6 /CUMM (4.8-10.8)
[2016-10-07 17:00] VITALS: BP 117/62
--- NOTE | 2016-10-07 17:11 | Proc Note Endoscopy ---
Endoscopy Procedure Medical History: unchanged Mental Status: alert/oriented Heart/Lung Eval Prior to Sedation: within normal limits (COPD/ILD) Candidate for Sedation? Yes Procedure Date: 10/07/16 Procedure Type: EGD with biopsy & partial polypectomy (*done at different sites) Clinical Biostatistics Director: REYNALDO MCGRAW MD ASA Classification: III Indications: INDX: (*Please refer to 10/06/16: inpatient GI consult). 51-year-old male with numerous comorbidities (i.e.- COPD, ILD, hypertension, hyperlipidemia, CHF, pulmonary hypertension, DJD, AVN, neuropathy, edema, osteoporosis, RBBB, chronic pain syndrome, vitamin D deficiency, migraine headaches, nephropathy, with numerous admissions for unresponsiveness, CO2 retention, & narcotic use, without previous EGD or colonoscopy, *with multifactorial subacute on chronic anemia, OB positive stool, abnormal esophagus on 10/06/2016: admission CT, *weak family history of gastric CA (MGF- , 80). There is no family history of colon cancer. GI ROS from above & below- negative, except for minimal constipation, attributed to narcotic analgesics. 07/21/16: IgA 464, tTG Ab- neg, DGP Ab- neg, elevated haptoglobin 301 (*not low- not hemolyzing), nl 5'NTD 4. Instrument: diagnostic gastroscope Meds Received: MAC Patient's Tolerance: good Complications: none Extent Reached: D3 Procedure: Baseline upper endoscopy to the third portion of the duodenum, with biopsies and partial hot snare polypectomy (*done at different sites), was performed with the Olympus high definition videoendoscope, after obtaining informed consent from the patient, with the mold shop supervisor and pulse oximeter, with the assistance of Dr. Becker, of [facility]. The patient's dentition was poor preoperatively. A mouthpiece was placed in the usual fashion to protect the patient's teeth. The patient was placed in the left lateral decubitus position and sedated by [facility]. At this point, the endoscope was advanced from the mouth into the esophagus, using direct visualization technique. The vocal cords appeared normal. The proximal esophageal mucosa appeared normal. There were no esophageal rings, webs, strictures, or ulcers. There was no monilia or vesicles. There was no esophageal ribbing. The Z line was irregular and somewhat faint at 38 cm, with a few scattered ectopic salmon colored islands above this, suggestive of Rizo's esophagus. There was no hiatal hernia pouch. No significant esophageal inflammation was seen. Findings of note included a huge, friable 6 cm polypoid esophageal lesion, with a pedunculated thick stalk, extending from 34 cm down to 40 cm, slightly spilling over the Z line, although not evident on retroflexion. After completing the remainder of the exam, several attempts were made to remove the polypoid esophageal lesion with snare polypectomy. Initially, the hexagonal snare was used, followed by the large snare, & then again, the hexagonal snare, using 25W/ pure coag. The appearance of the polypoid esophageal lesion was somewhat atypical. The stalk was too thick to resect the polypoid esophageal lesion, despite cautery, and a small chunk of this was resected and sent to pathology: ( Specimen B). *The vast majority of the polypoid esophageal lesion was left intact & if this is benign, will require EUS/EMR at [facility]. There were no esophageal or gastric varices, nor any Tali Irizarry tear. The santana of the stomach distended normally with air insufflation. Direct and retroflexed views of the stomach were performed. There was nothing endoscopically to suggest gastroparesis or portal gastropathy. The mucosa of the gastric cardia, fundus, lesser curvature, incisura, body, and antrum appeared normal, without any gastric ulcers or gastric lesions. The pylorus was patent, without any gastric outlet obstruction or channel ulcer. The duodenal bulb, duodenal sweep, and third portion of the duodenum appeared normal, including the ampulla, without any duodenal ulcers, distal ulcerations, or angiodysplasias. The folds of the second and third portions of the duodenum were normal in caliber, without any flattening, nodularity, scalloping, or mosaic pattern. Nevertheless, in view of the history of anemia and possible iron deficiency (most recent labs seem to be consistent with anemia of chronic disease), random small bowel biopsy x 4 of normal-appearing second and third portions of the duodenum were obtained: ( Specimen A- rule out malabsorption and/or celiac sprue; serologies-negative as above). No active upper GI bleeding was seen, although the polypoid esophageal lesion was friable, and oozed some small amounts of heme after attempts at incomplete snare polypectomy. Documenting photographs were obtained and placed inside the patient's chart. The patient tolerated the procedure well. He was asymptomatic postoperatively, without any chest pain, shortness of breath, pleuritic pain, abdominal pain, hematemesis, head and neck crepitus, or chest wall crepitus. Impression: 1. Huge, friable 6 cm polypoid esophageal lesion, with a pedunculated thick stalk, extending from 34 cm down to 40 cm, slightly spilling over the Z line at 38 cm, although not evident on retroflexion. Unable to completely remove, despite several attempts at snare polypectomy. A small chunk of this was resected and sent to pathology: (Specimen B). *The vast majority of the polypoid esophageal lesion was left intact & if this is benign, will require EUS/EMR at [facility]. 2. Irregular Z line at 38 cm, with suggestion of Rizo's esophagus, with salmon-colored ectopic islands above this. 3. Random small bowel biopsy x 4 of normal-appearing second and third portions of the duodenum: (Specimen A- rule out malabsorption and/or celiac sprue; serologies- negative as above). Recommendations: Await esophageal & duodenal biopsies. The patient was advised to call my office within 2 weeks for the pathology results. Increase PPI to BID. Clears po & advance diet as tolerated. Follow-up CBC. Further treatment and/or work-up will be dependent on the pathology results. Assuming the patient does not actively bleed and the esophageal biopsies are benign, will advise outpatient EUS/EMR at [facility]. Obviously, if the esophageal biopsies are malignant, the patient will need a staging workup, which will also include EUS, as well as oncology and thoracic surgery input. The patient is also aware that he will need an outpatient baseline colonoscopy, timing to be determined by clinical course and by the pathology results of the above esophageal lesion. The above findings and recommendations were discussed with the patient, the medical house staff, and with Dr. Mckoy, postoperatively. Further inpatient GI follow up as needed. ADDENDUM: 10/12/16- A. 2ND AND 3RD PORTION OF DUODENUM, RANDOM BIOPSY X 4: UNREMARKABLE SMALL INTESTINE MUCOSA. B. POLYPOID ESOPHAGEAL LESION, BIOPSY: *MODERATELY DIFFERENTIATED ADENOCARCINOMA. NOTE: Dr. Fara Carlton has reviewed Specimen B and agrees with the above intepretation. Tissue block B has been sent for HER2 FISH analysis. This case was discussed with Dr. Mcgraw on 10/11/16 at 11:50 AM. Dictated by: LEANNE HULL,KRZYSZTOF James The above pathology was reviewed with Dr. Ly of [facility] on , but was entered today. HER2 FISH- pending. Random SB bxs D2/D3- neg. *The large esophageal lesion is moderately differentiated adenoCa. The pt was D/C from [facility] on 10/11/16. I called the pt 10/12/16 at 7:50 p.m. at [phone] & spoke with his , Crystal, regarding the esophageal Ca. I then left the pt a message at [phone], telling him to call me about the esophageal Ca. The pt and/or his family were informed to call the office tomorrow & have [facility] coordinate the staging workup. [The pt had inpt 10/06/16: CT AP & CT head, none with IV cont. He had nl GFR, but apparently has underlying renal disease & is allergic to contrast.] *The pt needs an EUS, as well as oncology and thoracic surgery input (i.e.- Dr. Garnett), at [facility]. *Continue PPI BID. The patient is also aware that he will need an outpatient baseline colonoscopy, timing to be determined by workup of the esophageal Ca. CC: MERCEDEZ HULL,TAYE Vasquez; JACEY HULL,ANA; DESHAWN HULL,KRZYSZTOF Waller; DERRICK HULL,Fabio ARANA; FREDDIE HULL,YULI Canela; SHO HULL,TORSTEN Marin; TASHA HULL,CLAUDE; ALOK HULL,REYNALDO Marin; CLARENCE HULL,SEKOU STAUFFER; ELENO HULL,Angeline FAGAN; MAX HULL,KWESI Gallagher JR; PEGGY FUENTES MD
[2016-10-08] VITALS: BP 110/60
--- NOTE | 2016-10-08 04:09 | NUR ---
PT IS ALERT AND ORIENTED. STATED THAT HE HAS SOME PAIN ON HIS LEG 08/27. DRESSING TO LEFT LEG DRY AND INTACT. MANUAL BP 130/80, NSR 80'S. SATURATION 93% ON 2L O2, LUNGS SOUND CLEAR. YEE IN PLACE ADEQUATE UO NOTED.
[2016-10-08 04:58] LABS: ABSOLUTE BASOPHIL COUNT 0.1 /CUMM (0.0-0.2); ABSOLUTE EOSINOPHIL COUNT 0.1 /CUMM (0.0-0.7); ABSOLUTE GRANULOCYTE CT 9.8 /CUMM (1.4-6.5); ABSOLUTE LYMPH COUNT 1.5 /CUMM (1.2-3.4); ABSOLUTE MONOCYTE COUNT 0.5 /CUMM (0.10-0.60); EOSINOPHIL % 1.2 % (0-5); GRANULOCYTE % 81.6 % (42.2-75.2); HEMATOCRIT 26.3 % (42-52); MEAN CORPUSCULAR HGB CONC 32.1 G/DL (33.0-37.0); MEAN PLATELET VOLUME 6.2 FL (7.4-10.4); PLATELET COUNT 382 /CUMM (130-400); RBC DISTRIBUTION WIDTH 19.5 % (11.5-14.5); RED BLOOD CELL CT 3.24 /CUMM (4.70-6.10); WHITE BLOOD CELL COUNT 12.1 /CUMM (4.8-10.8)
--- NOTE | 2016-10-08 07:40 | PN- Resident CRCU ---
Subjective HPI/CRCU Issues: Patient seen and examined this morning. He was lying in bed in no acute distress. Fully alert and oriented. Remains on 2 L of nasal cannula oxygen satting in the 90s. He underwent endoscopy today which revealed esophageal polyp. No episodes of GI bleed, H&H has been stable. He is to get a swallow eval today, after which his diet will be advanced to regular. Otherwise offers no complaints, denies any nausea, vomiting, abdominal pain, any changes in bowel movements, any urinary symptoms. 24 Hour Events: No acute overnight events. Objective Vital Signs & I&O Last 8 Hrs of Vitals and I&O: Laboratory Tests 10/08/16 0353: Anion Gap 1 L, Estimated GFR > 60, Glucose 93, Calcium 7.9 L, Phosphorus 4.9 H, Magnesium 2.4 H, Total Bilirubin 0.2, AST 16 L, ALT 27, Albumin 1.7 L, CBC w Diff NO MAN DIFF REQ, RBC 3.24 L, MCV 81.0, MCH 26.0 L, RDW 19.5 H, MPV 6.2 L, Gran % 81.6 H, Lymphocytes % 12.5 L, Monocytes % 3.7, Eosinophils % 1.2, Basophils % 1.0, Absolute Granulocytes 9.8 H, Absolute Lymphocytes 1.5, Absolute Monocytes 0.5, Absolute Eosinophils 0.1, Absolute Basophils 0.1, PUBS MCHC 32.1 L Vital Signs Date Time Temp Pulse Resp B/P Pulse O2 O2 Flow FiO2 Ox Delivery Rate 10/08 1200 99.0 98 18 140/80 96 Nasal 2.0L Cannula 10/08 0938 97 Nasal 2.0L Cannula 10/08 0800 Nasal 2.0L Cannula 10/08 0800 97.7 92 20 148/80 93 Nasal 2.0L Cannula 10/08 0400 93 Nasal 2.0L Cannula 10/08 0000 93 Nasal 2.0L Cannula 10/08 0000 98.6 92 18 110/60 93 Nasal 2.0L Cannula 10/07 2019 97 Nasal 2.0L Cannula 10/07 2000 Nasal 2.0L Cannula 10/07 1700 100 18 117/62 97 Nasal 4.0L Cannula Intake & Output 10/08 1600 10/08 0800 10/08 0000 Intake Total 800 100 680 Output Total 600 420 300 Balance 200 -320 380 Intake, Oral 800 100 680 Output, Urine 600 420 300 Patient 84.822 kg Weight Intake & Output 10/08 1600 Intake Total 800 Output Total 600 Balance 200 Intake, Oral 800 Output, Urine 600 Patient 84.822 kg Weight Exam General Appearance: well developed/nourished Respiratory: normal breath sounds Cardiovascular: regular rate/rhythm Gastrointestinal: normal bowel sounds, soft Extremities: b/l lle chronic venous stasis ulcer in multiple stages of healing Nutrition Nutrition: P.O. diet Current Medications: Current Medications Sig/Silvana Start time Last Medication Dose Route Stop Time Status Admin Acetaminophen 1,000 MG Q6P PRN 10/06 0545 AC IV Albuterol Sulfate 3 ML BID 10/06 2200 AC 10/08 INH 0936 Heparin Sodium 5,000 UNIT Q8 10/08 1400 AC 10/08 (Porcine) SC 1436 Lidocaine 1 PAT 2300 10/07 2300 AC 10/07 EXT 2207 Melatonin 5 MG AT BEDTIME 10/06 2300 AC 10/07 PO 2121 Omeprazole 40 MG BID 10/07 2200 CAN PO Oxycodone HCl 15 MG Q8P PRN 10/08 0845 AC 10/08 PO 0844 Oxycodone HCl 15 MG Q12 10/06 2230 AC 10/08 PO 1004 Pantoprazole Sodium 40 MG BID 10/07 2200 AC 10/08 IV 1006 Pantoprazole Sodium 40 MG DAILY 10/06 1755 DC 10/07 IV 1013 Prednisone 10 MG DAILY 10/07 1800 AC 10/08 PO 10/10 2300 1005 Antibiotics Antibiotics? none Impression/Plan Impression/Problem List Impression: 51 y/o M with h/o CHF, HTN, COPD, ILD on chronic steroids who presents to the ED with complaints of unresponsiveness. He was given Narcan in the ED and responded to it. His respiratory status and blood pressure improved. His Utox was found to have elevated opiate levels. Patient admitted to the ICU for unresponsiveness possibly secondary to opiate overdose. Labs upon presentation: Leukocytosis, Creatinine 1.3, Prolactin 27.5, ABG shows: 7.35/41/71// Problem List: 1) Altered Mental Status 2/2 opiate overdose, CT head negative for hemorrhage. 2) Reactive Leukocytosis 3) Acute Kidney Injury 4) Acute Anemia, no evidence of bleeding noted. Patient currently managed in ICU for following conditions: Respiratory: He has history of interstitial lung disease, is on 2 L of nasal cannula oxygen at home, currently satting well on 2 L of nasal cannula oxygen in mid 90s. He is on prednisone 10mg daily. * Prednisone 10mg for three days, followed by 5mg daily indefinetly Cardiovascular: Patient was hypotensive upon admission, since blood pressure systolic has been ranging between 110s to 130s. Infectious disease; Likely reactive, Patient presented with leukocytosis, CBC 35,000, received one dose of ceftriaxone in the ED, Ever since admission white count is improved 19.4>>16>>13.8, no fever, continue to monitor. Hematological /Gastrointestinal: Patient presented with H&H of 6.8, status post 2 units packed red blood cells transfusion, he was found to be guaiac-positive, CT scan has showed evidence of distal esophageal questionable mass with paraesophageal lymphadenopathy, patient underwent endoscopy yesterday revealing a 6cm polyp in distal esophagus. 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 AIlmentary: Patient tolerating full liquid diet, will advance as tolerated Chronic B/L leg pain: Likely secondary to multiple b/l LLE ulcers 2/2 to chronic venous stasis. * Will cont oxycontin and oxycodone at home dose. DVT prophylaxis; Alps Patient is full code Problem List: 1. Abnormal CT of the abdomen 2. Esophageal polyp Pain Ratin Tomorrow's Labs & Rationales: ICU bundle for lytes monitoring CBC for wbc and h&H monitoring Plan DVT/Prophylaxis: mechanical
[2016-10-08 08:00] VITALS: BP 148/80
--- NOTE | 2016-10-08 08:08 | Cons- Wound Care ---
General Information and HPI Consulting Request Date of Consult: 10/08/16 Requested By: DERICK HULL,CALIN Reason for Consult: Right buttock ulcer present on admission and multiple left lower extremity venous stasis ulcers present on admission History of Present Illness: Patient is 51-year-old gentleman with multiple medical problems seen in the emergency room for altered mental status. He had previously been followed for venous stasis ulcers with preserved distal circulation. He denies history of diabetes. Upon admission he was found to have multiple left lower extremity ulcers with dominantly yellow fill and a unstageable right buttock ulcer present on admission. Allergies/Medications Allergies: Coded Allergies: Iodinated Contrast Media - Oral and (IODINATED CONTRAST MEDIA - IV DYE) (RED RASH TOLERATES WITH BENADRYL 01/12/16) Home Med List: Albuterol Sulfate (Proair Hfa) 90 MCG HFA.AER.AD 2 PUF INH Q4-6 PRN PRN BREATHING PROBLEMS (Reported) Albuterol Sulfate 2.5 MG/3 ML (0.083 %) VIAL.NEB 1 Vial INH/M[place]ISON Q4-6H PRN COPD (Reported) Amitriptyline HCl 150 MG TABLET 1 TAB PO QPM NEUROPATHY (Reported) Aspirin (Ecotrin*) 81 MG TABLET.DR 1 TAB PO DAILY HEART/BLOOD (Reported) Baclofen 10 MG TABLET 1 TAB PO TID MUSCLE SPASMS (Reported) Ferrous Sulfate 325 MG (65 MG IRON) TABLET 1 TAB PO DAILY ANEMIA (Reported) Fluticasone-Salmeterol (Advair 100-50 Diskus) 100 MCG-50 MCG/DOSE BLST.W.DEV 1 PUF INH BID COPD (Reported) Furosemide (Lasix) 40 MG TABLET 1 TAB PO BID DIURETIC (Reported) Gabapentin (Neurontin) 800 MG TABLET 1 TAB PO 4 TIMES/DAY NEUROPATHY ( Reported) Losartan Potassium (Cozaar) 50 MG TABLET 1 TAB PO DAILY BP (Reported) Oxycodone HCl (Oxycontin) 15 MG TAB.ER.12H 15 MG PO Q12H pain Oxycodone HCl 5 MG TABLET 15 MG PO Q8P PRN pain 7-10 Prednisone 10 MG TABLET 1 TAB PO DAILY COPD /INTERSTITIAL LUNG DISEAS AFTER FINISHING PREDNISONE TAPER. Risedronate Sodium (Actonel) 35 MG TABLET 1 TAB PO QMON BONE (Reported) Review of Systems Review of Systems: Patient denies claudication Past History Travel History Traveled to [place] past 21 day No Medical History Blood Transfusion Hx: Yes Neurological: peripheral neuropathy (critical illness neuropathy) EENT: NONE Cardiovascular: CHF, hypertension, hyperlipidemia, right-sided heart failure Respiratory: COPD, 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), ARDS and prolonged mechanical ventilation Gastrointestinal: hx OB+ stool Hepatic: NONE Renal: chronic kidney disease Musculoskeletal: OSTEOPENIA 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 Cerebral hemorrhage MOTHER ([employer]). Age 74. BROTHER, Age 49. BROTHER ([employer]). MGF, , Age 80; Cause: Gastric carcinoma. Relation not specified for: gastric cancer Psychosocial History Where Do You Live? Home Who Do You Live With? spouse, child Services at Home: Oxygen Primary Language: Occitan Smoking Status: Current Everyday Smoker ETOH Use: occasional use Illicit Drug Use: denies illicit drug use (on rx narcotics) Living Will? yes Power of Independent Agent Music Education/HCP? no Other Social History: The patient is in the midst of a divorce. 2 sons and 1 daughter all [employer]. On disability since 2007. 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 2 pack per day cigarette smoking 40 years. [address] drugs. On prescription narcotics. Functional Ability ADLs Independent: dressing, eating, toileting, bathing. Ambulation: cane IADLs Independent: shopping, housework, finances, food prep, telephone, transportation , medication admin. Employment History Employment: Disability ECHO Results (as available) Date of last Echo 08/06/16 EF% 65 Exam & Diagnostic Data Vital Signs and I&O Vital Signs Result Date Time Pulse Ox 93 10/08 0400 O2 Delivery Nasal Cannula 10/08 0400 O2 Flow Rate 2.0L 10/08 0400 B/P 110/60 10/08 0000 Temp 98.6 10/08 0000 Pulse 92 10/08 0000 Resp 18 10/08 0000 Intake & Output 10/08 0000 10/07 1600 10/07 0800 Intake Total 680 Output Total 300 300 Balance 380 -300 Intake, Oral 680 Output, Urine 300 300 Exam of the right buttock shows there to be approximately 2.5 x 2 cm unstageable ulcer with over 90% yellow slough there is no undermining sinus tracking exposed bone or periwound erythema. Over the left leg are multiple ulcers at surface with predominantly yellow fill dorsalis pedis and posterior tibial pulses are palpable there is evidence of prior edema. Assessment/Plan Impression/Plan: 51-year-old gentleman with multiple medical problems as a unstageable right buttock ulcer. Recommend autolytic debridement with meta-honey or Santyl low air loss mattress and offloading. Lower extremity ulcers similarly can be autolytic was debrided with either meta-honey or Santyl. His edema appears improved with bedrest his leg should be elevated and wounds cleansed and dressed daily. Following discharge she can be seen in the wound care center. Prior to discharge multilayer compression dressing will be placed on the left leg for management of his edema. Consult Acknowledgment - Thank you for your consult request.
--- NOTE | 2016-10-08 10:00 | PN- CRCU ---
Subjective HPI/Critical Care Issues: The patient is awake and alert. He has not had any episodes of unresponsiveness or seizing. He tolerated his EGD well, and I have reviewed the patient's findings with GI. He complains of lower extremity pain following debridement. He denies any shortness of breath, chest congestion, sputum production, fever or chills. He has remained hemodynamically stable and afebrile. There were no overnight events. Objective Current Medications: Current Medications Sig/Silvana Start time Last Medication Dose Route Stop Time Status Admin Acetaminophen 1,000 MG Q6P PRN 10/06 0545 AC IV Albuterol Sulfate 3 ML BID 10/06 2200 AC 10/08 INH 0936 Ketamine HCl 50 MG .STK-MED ONE 10/07 1526 DC IM 10/07 1527 Lidocaine 1 PAT 2300 10/07 2300 AC 10/07 EXT 2207 Melatonin 5 MG AT BEDTIME 10/06 2300 AC 10/07 PO 2121 Omeprazole 40 MG BID 10/07 2200 CAN PO Oxycodone HCl 15 MG Q8P PRN 10/08 0845 AC 10/08 PO 0844 Oxycodone HCl 15 MG Q12 10/06 2230 AC 10/07 PO 2121 Pantoprazole Sodium 40 MG BID 10/07 2200 AC 10/07 IV 2121 Pantoprazole Sodium 40 MG DAILY 10/06 1755 DC 10/07 IV 1013 Prednisone 10 MG DAILY 10/07 1800 AC 10/07 PO 1745 Vital Signs & I&O Last 24 Hrs of Vitals and I&O: Vital Signs Date Time Temp Pulse Resp B/P Pulse O2 O2 Flow FiO2 Ox Delivery Rate 10/08 0938 97 Nasal 2.0L Cannula 10/08 0800 Nasal 2.0L Cannula 10/08 0800 97.7 92 20 148/80 93 Nasal 2.0L Cannula 10/08 0400 93 Nasal 2.0L Cannula 10/08 0000 93 Nasal 2.0L Cannula 10/08 0000 98.6 92 18 110/60 93 Nasal 2.0L Cannula 10/07 2019 97 Nasal 2.0L Cannula 10/07 2000 Nasal 2.0L Cannula 10/07 1700 100 18 117/62 97 Nasal 4.0L Cannula 10/07 1600 Nasal 4.0L Cannula 10/07 1200 Nasal 2.0L Cannula 10/07 1200 99.2 100 18 124/70 99 Nasal 2.0L Cannula Intake & Output 10/08 1600 10/08 0800 10/08 0000 Intake Total 100 680 Output Total 420 300 Balance -320 380 Intake, Oral 100 680 Output, Urine 420 300 Patient 187 lb Weight Exam General Appearance: no apparent distress, alert, awake Head: atraumatic, normal appearance Neck: supple Respiratory: no respiratory distress, faint bibasilar crackles Cardiovascular: regular rate/rhythm, S1 and S2 heard Abdomen: normal bowel sounds, soft, non-tender Extremities: no edema Skin: warm/dry, left lower extremity bandaged Results Last 24 Hrs of Lab Results: Laboratory Tests 10/08/16 0353: Anion Gap 1 L, Estimated GFR > 60, Glucose 93, Calcium 7.9 L, Phosphorus 4.9 H, Magnesium 2.4 H, Total Bilirubin 0.2, AST 16 L, ALT 27, Albumin 1.7 L, CBC w Diff NO MAN DIFF REQ, RBC 3.24 L, MCV 81.0, MCH 26.0 L, RDW 19.5 H, MPV 6.2 L, Gran % 81.6 H, Lymphocytes % 12.5 L, Monocytes % 3.7, Eosinophils % 1.2, Basophils % 1.0, Absolute Granulocytes 9.8 H, Absolute Lymphocytes 1.5, Absolute Monocytes 0.5, Absolute Eosinophils 0.1, Absolute Basophils 0.1, PUBS MCHC 32.1 L 10/07/16 1615: CBC w Diff NO MAN DIFF REQ, RBC 3.26 L, MCV 80.3, MCH 25.8 L, RDW 19.2 H, MPV 6.2 L, Gran % 73.5, Lymphocytes % 17.6 L, Monocytes % 7.2, Eosinophils % 1.4, Basophils % 0.3, Absolute Granulocytes 11.5 H, Absolute Lymphocytes 2.7, Absolute Monocytes 1.1 H, Absolute Eosinophils 0.2, Absolute Basophils 0, PUBS MCHC 32.2 L Impression/Plan Impression/Plan Impression/Plan: 1. Altered mental status, opiate intoxication, improved. 2. No evidence of seizure activity. 3. Severe anemia, without evidence of bleeding. Guaic + stool. 4. Elevated leukocytosis, on chronic steroids. Probable leukemoid reaction. 5. Chronic CKD, nephrotic syndrome. 6. History of diastolic CHF with increased vascular congestion on CXR. 7. Esophageal mass and parapharyngeal lymphadenopathy, rule out malignancy. 8. Malnutrition. 9. Unstageable wound on left gluteal fold. 10. Friable 6 cm polypoid esophageal lesion, with a pedunculated thick stalk - will need further intervention - referral to [facility]. Recommendations: * Advance diet when cleared with GI. * Monitor for bleeding. * Monitor cultures. * Watch off antibiotics. * Monitor the patient on pain pathway. Monitor for withdrawal symptoms. * Change to prednisone 10 mg daily for 3 days, and then 5 mg daily indefinitely. * Continue IV Protonix. * Skin care protocol in place, follow wound care recommendations. * Keep patient's legs elevated. * Continue TRC. * Add SQ heparin for DVT prophylaxis. * Psychiatry and criminal justice social worker input appreciated. * Continue all supportive care. * Downgrade to telemetry.
--- NOTE | 2016-10-08 11:02 | PN- Cardiology ---
Subjective Subjective: Clinically improving; cardiac status stable Objective Vital Signs and I&Os Vital Signs Date Time Temp Pulse Resp B/P Pulse O2 O2 Flow FiO2 Ox Delivery Rate 10/08 0938 97 Nasal 2.0L Cannula 10/08 0800 Nasal 2.0L Cannula 10/08 0800 97.7 92 20 148/80 93 Nasal 2.0L Cannula 10/08 0400 93 Nasal 2.0L Cannula 10/08 0000 93 Nasal 2.0L Cannula 10/08 0000 98.6 92 18 110/60 93 Nasal 2.0L Cannula 10/07 2019 97 Nasal 2.0L Cannula 10/07 2000 Nasal 2.0L Cannula 10/07 1700 100 18 117/62 97 Nasal 4.0L Cannula 10/07 1600 Nasal 4.0L Cannula 10/07 1200 Nasal 2.0L Cannula 10/07 1200 99.2 100 18 124/70 99 Nasal 2.0L Cannula Intake & Output 10/08 1600 10/08 0800 10/08 0000 10/07 1600 10/07 0800 10/07 0000 Intake Total 100 680 250 Output Total 420 300 300 750 Balance -320 380 -300 -500 Intake, IV 150 Intake, Oral 100 680 100 Number 0 Bowel Movements Output, Urine 420 300 300 750 Patient 187 lb Weight Physical Exam: General Appearance More alert and appropriate today Skin lesions present on the left lower extremity 2/2 venous stasis with areas of weeping HEENT Unchanged Neck Supple; JVP elevated 2 cm at 45 degrees; carotids normal bilaterally Cardiovascular Regular Rate, Normal S1, Normal S2, No audible Murmurs Lungs bilateral rhonchi Abdomen Normal Bowel Sounds, Soft, No Tenderness Neurological Strength at 5/5 X4 Ext, Normal Tone, Sensation Intact Extremities 1+ edema present in both lower extremities; stasis changes and erythema greater on the left side. Current Medications: Current Medications Sig/Silvana Start time Last Medication Dose Route Stop Time Status Admin Acetaminophen 1,000 MG Q6P PRN 10/06 0545 AC IV Albuterol Sulfate 3 ML BID 10/06 2199 AC 10/08 INH 0936 Ketamine HCl 50 MG .STK-MED ONE 10/07 1526 DC IM 10/07 1527 Lidocaine 1 PAT 2300 10/07 2299 AC 10/07 EXT 2206 Melatonin 5 MG AT BEDTIME 10/06 2299 AC 10/07 PO 2120 Omeprazole 40 MG BID 03/23 2200 CAN PO Oxycodone HCl 15 MG Q8P PRN 10/08 0845 AC 10/08 PO 0844 Oxycodone HCl 15 MG Q12 10/06 2230 AC 10/08 PO 1004 Pantoprazole Sodium 40 MG BID 10/07 2199 AC 10/08 IV 1006 Pantoprazole Sodium 40 MG DAILY 10/06 1755 DC 10/07 IV 1013 Prednisone 10 MG DAILY 10/07 1800 AC 10/08 PO 1005 Results Last 48 Hrs of Labs/Mics: Laboratory Tests 10/08/16 0353: Anion Gap 1 L, Estimated GFR > 60, Glucose 93, Calcium 7.9 L, Phosphorus 4.9 H, Magnesium 2.4 H, Total Bilirubin 0.2, AST 16 L, ALT 27, Albumin 1.7 L, CBC w Diff NO MAN DIFF REQ, RBC 3.24 L, MCV 81.0, MCH 26.0 L, RDW 19.5 H, MPV 6.2 L, Gran % 81.6 H, Lymphocytes % 12.5 L, Monocytes % 3.7, Eosinophils % 1.2, Basophils % 1.0, Absolute Granulocytes 9.8 H, Absolute Lymphocytes 1.5, Absolute Monocytes 0.5, Absolute Eosinophils 0.1, Absolute Basophils 0.1, PUBS MCHC 32.1 L 10/07/16 1615: CBC w Diff NO MAN DIFF REQ, RBC 3.26 L, MCV 80.3, MCH 25.8 L, RDW 19.2 H, MPV 6.2 L, Gran % 73.5, Lymphocytes % 17.6 L, Monocytes % 7.2, Eosinophils % 1.4, Basophils % 0.3, Absolute Granulocytes 11.5 H, Absolute Lymphocytes 2.7, Absolute Monocytes 1.1 H, Absolute Eosinophils 0.2, Absolute Basophils 0, PUBS MCHC 32.2 L 10/07/16 0354: Anion Gap 8, Estimated GFR > 60, Glucose 80, Calcium 7.8 L, Phosphorus 5.6 H, Magnesium 2.1, Total Bilirubin 0.3, AST 21, ALT 26, Albumin 1.7 L, PT 11.6, INR 1.11, APTT 32, CBC w Diff NO MAN DIFF REQ, RBC 3.37 L, MCV 80.5, MCH 26.0 L, RDW 19.4 H, MPV 6.4 L, Gran % 94.7 H, Lymphocytes % 4.8 L, Monocytes % 0.5 L, Eosinophils % 0, Basophils % 0 L, Absolute Granulocytes 13.1 H, Absolute Lymphocytes 0.7 L, Absolute Monocytes 0.1 L, Absolute Eosinophils 0, Absolute Basophils 0, PUBS MCHC 32.3 L 10/06/16 2344: Anion Gap 4 L, Estimated GFR > 60, Glucose 77, Calcium 7.7 L, Phosphorus 4.9 H, Magnesium 2.1, Total Bilirubin 0.3, AST 22, ALT 22, Albumin 1.7 L, CBC w Diff NO MAN DIFF REQ, RBC 3.33 L, MCV 79.9 L, MCH 26.4 L, RDW 18.6 H, MPV 6.4 L, Gran % 97.0 H, Lymphocytes % 2.6 L, Monocytes % 0.3 L, Eosinophils % 0.1, Basophils % 0 L, Absolute Granulocytes 15.5 H, Absolute Lymphocytes 0.4 L, Absolute Monocytes 0 L, Absolute Eosinophils 0, Absolute Basophils 0, PUBS MCHC 33.0 10/06/16 1515: Anion Gap 4 L, Estimated GFR > 60, Glucose 73, Calcium 7.1 L, Phosphorus 5.1 H, Magnesium 1.7, Total Bilirubin 0.5, AST 19, ALT 24, Albumin 1.5 L, CBC w Diff NO MAN DIFF REQ, RBC 3.01 L, MCV 80.2, MCH 26.0 L, RDW 18.6 H, MPV 6.2 L, Gran % 79.3 H, Lymphocytes % 12.7 L, Monocytes % 5.0, Eosinophils % 2.4, Basophils % 0.6, Absolute Granulocytes 15.4 H, Absolute Lymphocytes 2.5, Absolute Monocytes 1.0 H, Absolute Eosinophils 0.5, Absolute Basophils 0.1, PUBS MCHC 32.5 L 10/06/16 1500: Sodium Cancelled, Potassium Cancelled, Chloride Cancelled, Carbon Dioxide Cancelled, Anion Gap Cancelled, BUN Cancelled, Creatinine Cancelled, BUN/ Creatinine Ratio Cancelled Assessment/Plan Assessment/Plan Assessment: 1. Mental status changes; possibly opiate related - improved 2. Leukocytosis 3. DEE; history of nephrotic syndrome 4. ILD 5. PAF 6. Worsening anemia 7. Polypoid esophageal lesion; work up in progress. Recommendations: - Continue current regimen - EGD results noted - Otherwise continue as per the ICU team - Followup labs pending - Monitor for any further evidence of bleeding - Stable for transfer to telemetry Continue telemetry? Yes
[2016-10-08 12:00] VITALS: BP 140/80
--- NOTE | 2016-10-08 14:45 | NUR ---
REPORT GIVEN TO VARSHA MURILLO FOR TRANSFER TO ROOM 187. PATIENT AWARE OF TRANSFER. AWAITING TRANSPORT FOR 1530. ED V. SKI INSTRUCTOR AWARE.
--- NOTE | 2016-10-08 16:54 | Transfer of Care Summary ---
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 He was last see normal at 2 AM, after which he was found to be unresponsive at 3 AM. In the field, his O2 saturation was 88-89% . On arrival in the ED, he was responsive only to pain. He was placed on a NC at 2.0 L and saturations were found to increase to 99%. He was then medicated with Narcan, but remained unresponsive. He then became responsive to his name and was awake, alert to place. Patient was admitted to the ICU for unresponsiveness possibly secondary to opiate overdose. Labs upon presentation: Leukocytosis, Creatinine 1.3, Prolactin 27.5, ABG shows: 7.35/41/71// He was managed in ICU for following conditions: Respiratory: He has history of interstitial lung disease, is on 2 L of nasal cannula oxygen at home, currently satting well on 2 L of nasal cannula oxygen in mid s. He is on prednisone 10mg daily. * Prednisone 10mg for three days, followed by 5mg daily indefinetly, please add to CMR upon discharge Cardiovascular: Patient was hypotensive upon admission, since blood pressure systolic has been ranging between 110s to 130s. Infectious disease; Likely reactive, Patient presented with leukocytosis, CBC 35,000, received one dose of ceftriaxone in the ED, Ever since admission white count is improved 19.4>>16>>13.8, no fever, continue to monitor. Hematological /Gastrointestinal: Patient presented with H&H of 6.8, status post 2 units packed red blood cells transfusion, he was found to be guaiac-positive, CT scan has showed evidence of distal esophageal questionable mass with paraesophageal lymphadenopathy, patient underwent endoscopy yesterday revealing a 6cm polyp in distal esophagus. * Will keep monitoring H&H closely along with monitoring for any bleeding * Patient needs to follow-up with GI upon discharge within 2 weeks for esophageal biopsy results, further management will be dependent on the biopsy results with a benign or malignant, patient is aware. 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 AIlmentary: Patient had a swallow eval done, currently on chopped diet. tolerating well. Chronic B/L leg pain: Likely secondary to multiple b/l LLE ulcers 2/2 to chronic venous stasis. * Will cont oxycontin and oxycodone at home dose. DVT prophylaxis; Alps Patient is full code Assessment/Plan: Prednisone 10mg for three days, followed by 5mg daily indefinetly, please add to CMR upon discharge Patient needs to follow-up with GI upon discharge within 2 weeks for esophageal biopsy results, further management will be dependent on the biopsy results with a benign or malignant, patient is aware.
--- NOTE | 2016-10-08 18:45 | NUR ---
Met with patient this afternoon and assisted him in naming his sister Armida as his Healthcare Recreation Supervisor. Copy of document placed in chart; will ask for assistance to have it scanned into the EHR. Patient relieved to have this exercise done. Please call if other social work needs arise.
[2016-10-09 00:40] VITALS: BP 140/82
[2016-10-09 08:08] VITALS: BP 140/82
[2016-10-09 08:29] LABS: ABSOLUTE BASOPHIL COUNT 0.1 /CUMM (0.0-0.2); ABSOLUTE EOSINOPHIL COUNT 0.5 /CUMM (0.0-0.7); ABSOLUTE GRANULOCYTE CT 6.2 /CUMM (1.4-6.5); ABSOLUTE LYMPH COUNT 2.9 /CUMM (1.2-3.4); ABSOLUTE MONOCYTE COUNT 0.7 /CUMM (0.10-0.60); EOSINOPHIL % 5.1 % (0-5); GRANULOCYTE % 59.2 % (42.2-75.2); HEMATOCRIT 27.7 % (42-52); MEAN CORPUSCULAR HGB CONC 32.2 G/DL (33.0-37.0); MEAN CORPUSCULAR VOLUME 80.7 FL (80.0-94.0); MEAN PLATELET VOLUME 6.3 FL (7.4-10.4); PLATELET COUNT 392 /CUMM (130-400); RBC DISTRIBUTION WIDTH 20.1 % (11.5-14.5); RED BLOOD CELL CT 3.43 /CUMM (4.70-6.10); WHITE BLOOD CELL COUNT 10.5 /CUMM (4.8-10.8)
--- NOTE | 2016-10-09 09:06 | PN- Housestaff ---
Subjective Follow-up For: Altered mental status secondary to opiate intoxication-recovered Anemia secondary to GI bleed Leucocytosis secondary to steroid use Chronic kidney disease probably secondary to nephrotic syndrome Diastolic CHF Polypoid 6 centimeter Esophageal mass with parapharyngeal lymphadenopathy under evaluation Malnutrition Peripheral vascular disease-multiple ulcers on left lower leg Complaints: no complaints Tele-Events Since Last Visit: Normal sinus rhythm, heart rate between 74-81, no any overnight events Subjective: Shinny seen and examined at the bedside. He was comfortable on 2 liters of oxygen. He denies of any chest pain, shortness of breath, headache, dizziness, pain in the legs. He was oriented to time, place and person. He denies for SI/ HI. According to the nurse she dressed the wound of left leg and there were 4 small ulcers which were healing. Review of Systems Constitutional: Denies: no symptoms. Comments: Patient denies any active complaints Objective Last 24 Hrs of Vital Signs/I&O Vital Signs Date Time Temp Pulse Resp B/P Pulse O2 O2 Flow FiO2 Ox Delivery Rate 10/09 1025 94 Nasal 2.0L Cannula 10/09 0808 98.2 76 16 140/82 98 Nasal 2.0L Cannula 10/09 0800 Nasal 2.0L Cannula 10/09 0040 98.9 81 18 140/82 98 Nasal Cannula 10/09 0000 Nasal 2.0L Cannula 10/08 1957 97 Nasal 2.0L Cannula Intake & Output 10/09 1600 10/09 0800 10/09 0000 Intake Total 100 610 Output Total 300 700 700 Balance -300 -600 -90 Intake, IV 10 Intake, Oral 100 600 Number 2 Bowel Movements Output, Urine 300 700 700 Physical Exam General Appearance: Alert, Oriented X3, Cooperative, No Acute Distress Skin: bilateral redness and thickening of the skin of lower extremities. On left leg the wounds were dressed Cardiovascular: Normal S1, Normal S2 Lungs: bilateral wheezing and velcro loke sounds on auscultation Abdomen: Soft, No Tenderness Neurological: Normal Speech Extremities: bilateral lower leg edema, nonpitting Vascular: post tibial can be palpated Current Medications: Current Medications Sig/Silvana Start time Last Medication Dose Route Stop Time Status Admin Acetaminophen 1,000 MG Q6P PRN 10/06 0545 AC IV Albuterol Sulfate 3 ML BID 10/06 2200 AC 10/09 INH 1018 Heparin Sodium 5,000 UNIT Q8 10/08 1400 AC 10/09 (Porcine) SC 1344 Lidocaine 1 PAT 2300 10/07 2300 AC 10/08 EXT 220 Melatonin 5 MG AT BEDTIME 10/06 2300 AC 10/08 PO 220 Omeprazole 40 MG BID 10/09 2200 AC PO Oxycodone HCl 15 MG Q8P PRN 10/08 0845 AC 10/08 PO 0844 Oxycodone HCl 15 MG Q12 10/06 2230 AC 10/09 PO 0845 Pantoprazole Sodium 40 MG BID 10/07 2200 DC 10/09 IV 0846 Patient Medication 1 UNIT ONE NR 10/09 1645 AC Teaching ED 10/09 1700 Prednisone 5 MG DAILY 10/11 1000 AC PO Prednisone 10 MG DAILY 10/07 1800 AC 10/09 PO 10/10 2300 0845 Last 24 Hrs of Lab/Al[place] Results Last 24 Hrs of Labs/Mics: Laboratory Tests 10/09/16 0621: Anion Gap 1 L, Estimated GFR > 60, Glucose 78, Calcium 7.7 L, Phosphorus 3.9, Magnesium 2.4 H, Total Bilirubin 0.2, AST 14 L, ALT 24, Albumin 1.8 L, CBC w Diff NO MAN DIFF REQ, RBC 3.43 L, MCV 80.7, MCH 26.0 L, RDW 20.1 H, MPV 6.3 L, Gran % 59.2, Lymphocytes % 27.8, Monocytes % 6.9, Eosinophils % 5.1 H, Basophils % 1.0, Absolute Granulocytes 6.2, Absolute Lymphocytes 2.9, Absolute Monocytes 0.7 H, Absolute Eosinophils 0.5, Absolute Basophils 0.1, PUBS MCHC 32.2 L Assessment/Plan Assessment: 51 y/o male with a PMH of HFprEF, hypertension, COPD on 2 L home O2, 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 Problem list- Altered mental status secondary to opiate intoxication-recovered Anemia secondary to GI bleed Leucocytosis secondary to steroid use Chronic kidney disease probably secondary to nephrotic syndrome Diastolic CHF Polypoid 6 centimeter Esophageal mass with parapharyngeal lymphadenopathy under evaluation Malnutrition Peripheral vascular disease-multiple ulcers on left lower leg Plan - Altered mental status secondary to opiate abuse * Currently, patient is oriented to time, place and person * We advised to avoid opiates * Advised to follow-up psychiatrist as an outpatient Acute hypoxic respiratory failure probably secondary to COPD exacerbation * Patient is off antibiotic * We will continue tablet prednisone 10 mgs for 3 days followed by 5 mgs lifelong * TRC/nebulization Polypoid 6 centimeter Esophageal mass with parapharyngeal lymphadenopathy under evaluation * Advised to follow-up with Dr. Mcgraw within a 2 week of discharge to know the results of the biopsy * We will stop IV Protonix and start him on tablet omeprazole 40mg twice a day Chronic kidney disease, nephrotic syndrome, hypoproteinemia * We will regularly monitor him * Advised to follow-up with chief resource officer as an outpatient Peripheral vascular disease - We will follow wound care recommendation Advise to keep both legs elevated DVT prophylaxis-heparin Diet - regular diet CODE STATUS-full code Problem List: 1. Esophageal polyp 2. Substance abuse 3. (HFpEF) heart failure with preserved ejection fraction 4. Mental status change 5. Hyperlipidemia 6. COPD exacerbation Pain Ratin Pain Location: Left lower leg Pain Goal: Remain pain free Pain Plan: Mild Tomorrow's Labs & Rationales: not required as patient is stable DVT/Prophylaxis: mechanical, pharmacological
--- NOTE | 2016-10-09 14:28 | PN- Pulmonary ---
Subjective HPI/Critical Care Issues: Relatively stable OOB to chair Objective Current Medications: Current Medications Sig/Silvana Start time Last Medication Dose Route Stop Time Status Admin Acetaminophen 1,000 MG Q6P PRN 10/06 0545 AC IV Albuterol Sulfate 3 ML BID 10/06 2199 AC 10/09 INH 1018 Heparin Sodium 5,000 UNIT Q8 10/08 1400 AC 10/09 (Porcine) SC 1344 Lidocaine 1 PAT 2300 10/07 2299 AC 10/08 EXT 2204 Melatonin 5 MG AT BEDTIME 10/06 230 AC 10/08 PO 2204 Oxycodone HCl 15 MG Q8P PRN 10/08 0845 AC 10/08 PO 0844 Oxycodone HCl 15 MG Q12 10/06 223 AC 10/09 PO 0845 Pantoprazole Sodium 40 MG BID 10/07 2199 AC 10/09 IV 0846 Prednisone 10 MG DAILY 10/07 1800 AC 10/09 PO 10/10 2300 0845 Vital Signs & I&O Last 24 Hrs of Vitals and I&O: Vital Signs Date Time Temp Pulse Resp B/P Pulse O2 O2 Flow FiO2 Ox Delivery Rate 10/09 1025 94 Nasal 2.0L Cannula 10/09 0808 98.2 76 16 140/82 98 Nasal 2.0L Cannula 10/09 0800 Nasal 2.0L Cannula 10/09 0040 98.9 81 18 140/82 98 Nasal Cannula 10/09 0000 Nasal 2.0L Cannula 10/08 1957 97 Nasal 2.0L Cannula 10/08 1615 Nasal 2.0L Cannula Intake & Output 10/09 1600 10/09 0800 10/09 0000 Intake Total 100 610 Output Total 300 700 700 Balance -300 -600 -90 Intake, IV 10 Intake, Oral 100 600 Number 2 Bowel Movements Output, Urine 300 700 700 Laboratory Tests 10/09 10/08 0621 0353 Chemistry Sodium (137 - 145 mmol/L) 134 L 133 L Potassium (3.5 - 5.1 mmol/L) 4.3 4.6 Chloride (98 - 107 mmol/L) 105 108 H Carbon Dioxide (22 - 30 mmol/L) 27 24 Anion Gap (5 - 16) 1 L 1 L BUN (9 - 20 mg/dL) 14 20 Creatinine (0.7 - 1.2 mg/dL) 0.7 0.9 Estimated GFR (>60 ml/min) > 60 > 60 Glucose (65 - 99 mg/dL) 78 93 Calcium (8.4 - 10.2 mg/dL) 7.7 L 7.9 L Phosphorus (2.5 - 4.5 mg/dL) 3.9 4.9 H Magnesium (1.6 - 2.3 mg/dL) 2.4 H 2.4 H Total Bilirubin (0.2 - 1.3 mg/dL) 0.2 0.2 AST (17 - 59 U/L) 14 L 16 L ALT (21 - 72 U/L) 24 27 Albumin (3.5 - 5.0 g/dL) 1.8 L 1.7 L Hematology CBC w Diff NO MAN DIFF REQ NO MAN DIFF REQ WBC (4.8 - 10.8 /CUMM) 10.5 12.1 H RBC (4.70 - 6.10 /CUMM) 3.43 L 3.24 L Hgb (14.0 - 18.0 G/DL) 8.9 L 8.4 L Hct (42 - 52 %) 27.7 L 26.3 L MCV (80.0 - 94.0 FL) 80.7 81.0 MCH (27.0 - 31.0 PG) 26.0 L 26.0 L RDW (11.5 - 14.5 %) 20.1 H 19.5 H Plt Count (130 - 400 /CUMM) 392 382 MPV (7.4 - 10.4 FL) 6.3 L 6.2 L Gran % (42.2 - 75.2 %) 59.2 81.6 H Lymphocytes % (20.5 - 51.1 %) 27.8 12.5 L Monocytes % (1.7 - 9.3 %) 6.9 3.7 Eosinophils % (0 - 5 %) 5.1 H 1.2 Basophils % (0.0 - 2.0 %) 1.0 1.0 Absolute Granulocytes (1.4 - 6.5 /CUMM) 6.2 9.8 H Absolute Lymphocytes (1.2 - 3.4 /CUMM) 2.9 1.5 Absolute Monocytes (0.10 - 0.60 /CUMM) 0.7 H 0.5 Absolute Eosinophils (0.0 - 0.7 /CUMM) 0.5 0.1 Absolute Basophils (0.0 - 0.2 /CUMM) 0.1 0.1 PUBS MCHC (33.0 - 37.0 G/DL) 32.2 L 32.1 L 10/07 1615 Hematology CBC w Diff NO MAN DIFF REQ WBC (4.8 - 10.8 /CUMM) 15.6 H RBC (4.70 - 6.10 /CUMM) 3.26 L Hgb (14.0 - 18.0 G/DL) 8.4 L Hct (42 - 52 %) 26.2 L MCV (80.0 - 94.0 FL) 80.3 MCH (27.0 - 31.0 PG) 25.8 L RDW (11.5 - 14.5 %) 19.2 H Plt Count (130 - 400 /CUMM) 382 MPV (7.4 - 10.4 FL) 6.2 L Gran % (42.2 - 75.2 %) 73.5 Lymphocytes % (20.5 - 51.1 %) 17.6 L Monocytes % (1.7 - 9.3 %) 7.2 Eosinophils % (0 - 5 %) 1.4 Basophils % (0.0 - 2.0 %) 0.3 Absolute Granulocytes (1.4 - 6.5 /CUMM) 11.5 H Absolute Lymphocytes (1.2 - 3.4 /CUMM) 2.7 Absolute Monocytes (0.10 - 0.60 /CUMM) 1.1 H Absolute Eosinophils (0.0 - 0.7 /CUMM) 0.2 Absolute Basophils (0.0 - 0.2 /CUMM) 0 PUBS MCHC (33.0 - 37.0 G/DL) 32.2 L Impression/Plan Impression/Plan Impression/Plan: Exam General Appearance: no apparent distress, alert, awake Head: atraumatic, normal appearance Neck: supple Respiratory: no respiratory distress, faint bibasilar crackles Cardiovascular: regular rate/rhythm, S1 and S2 heard Abdomen: normal bowel sounds, soft, non-tender Extremities: no edema Skin: warm/dry, left lower extremity bandaged Impression/Plan: 1. Altered mental status, opiate intoxication, improved. 2. No evidence of seizure activity. 3. Severe anemia, without evidence of bleeding. Guaic + stool. 4. Elevated leukocytosis, on chronic steroids. Probable leukemoid reaction. 5. Chronic CKD, nephrotic syndrome. 6. History of diastolic CHF with increased vascular congestion on CXR. 7. Esophageal mass and parapharyngeal lymphadenopathy, rule out malignancy. s/p egd 8. Malnutrition. 9. Unstageable wound on left gluteal fold. 10. Friable 6 cm polypoid esophageal lesion, with a pedunculated thick stalk - will need further intervention - referral to [facility] upon dc REC * Diet per gi * Monitor for bleeding. * Watch off antibiotics. * Monitor the patient on pain pathway. Monitor for withdrawal symptoms. * Change to prednisone 10 mg daily for 2 days, and then 5 mg daily indefinitely. * Continue IV Protonix. * Skin care protocol in place, follow wound care recommendations. * Keep patient's legs elevated. * Continue TRC. * Add SQ heparin for DVT prophylaxis. * Psychiatry and social service worker input appreciated. * Continue all supportive care.
[2016-10-09 16:43] VITALS: BP 132/72
--- NOTE | 2016-10-09 18:54 | PN- Cardiology ---
Subjective Subjective: Feeling better. Mental status injuries have resolved. No chest pain. No shortness of breath. No diaphoresis. No palpitations. No lightheadedness or dizziness. No nausea or vomiting. Sinus rhythm on telemetry. Objective Vital Signs and I&Os Vital Signs Date Time Temp Pulse Resp B/P Pulse O2 O2 Flow FiO2 Ox Delivery Rate 10/09 1643 98.6 72 18 132/72 99 Nasal 2.0L Cannula 10/09 1600 99 Nasal 2.0L Cannula 10/09 1025 94 Nasal 2.0L Cannula 10/09 0808 98.2 76 16 140/82 98 Nasal 2.0L Cannula 10/09 0800 Nasal 2.0L Cannula 10/09 0040 98.9 81 18 140/82 98 Nasal Cannula 10/09 0000 Nasal 2.0L Cannula 10/08 1957 97 Nasal 2.0L Cannula Intake & Output 10/09 1600 10/09 0800 10/09 0000 10/08 1600 10/08 0800 10/08 0000 Intake Total 100 610 800 100 680 Output Total 300 700 700 600 420 300 Balance -300 -600 -90 200 -320 380 Intake, IV 10 Intake, Oral 100 600 800 100 680 Number 2 Bowel Movements Output, Urine 300 700 700 600 420 300 Patient 187 lb Weight Physical Exam: Gen: NAD HEENT: normal Lungs: clear to auscultation, normal resp. effort Heart: RRR, S1, S2, no murmurs Abdomen: Soft, nontender, no masses Extremities: Plus edema with venous stasis ulcers and weeping Neuro: Alert and oriented x 3, cranial nerves intact Current Medications: Current Medications Sig/Silvana Start time Last Medication Dose Route Stop Time Status Admin Acetaminophen 1,000 MG Q6P PRN 10/06 0545 AC IV Albuterol Sulfate 3 ML BID 10/06 2199 AC 10/09 INH 1018 Heparin Sodium 5,000 UNIT Q8 10/08 1400 AC 10/09 (Porcine) SC 1344 Lidocaine 1 PAT 10/07 AC 10/08 EXT 220 Melatonin 5 MG AT BEDTIME 10/06 2299 AC 10/08 PO 220 Omeprazole 40 MG BID 10/09 2199 AC PO Oxycodone HCl 15 MG Q8P PRN 10/08 0845 AC 10/09 PO 1652 Oxycodone HCl 15 MG Q12 10/06 2229 AC 10/09 PO 0845 Pantoprazole Sodium 40 MG BID 10/07 2200 DC 10/09 IV 0846 Patient Medication 1 UNIT ONE NR 10/09 1645 DC Teaching ED 10/09 1700 Prednisone 5 MG DAILY 10/11 1000 AC PO Prednisone 10 MG DAILY 10/07 1800 AC 10/09 PO 10/10 2300 0845 Results Last 48 Hrs of Labs/Mics: Laboratory Tests 10/09/16 0621: Anion Gap 1 L, Estimated GFR > 60, Glucose 78, Calcium 7.7 L, Phosphorus 3.9, Magnesium 2.4 H, Total Bilirubin 0.2, AST 14 L, ALT 24, Albumin 1.8 L, CBC w Diff NO MAN DIFF REQ, RBC 3.43 L, MCV 80.7, MCH 26.0 L, RDW 20.1 H, MPV 6.3 L, Gran % 59.2, Lymphocytes % 27.8, Monocytes % 6.9, Eosinophils % 5.1 H, Basophils % 1.0, Absolute Granulocytes 6.2, Absolute Lymphocytes 2.9, Absolute Monocytes 0.7 H, Absolute Eosinophils 0.5, Absolute Basophils 0.1, PUBS MCHC 32.2 L 10/08/16 0353: Anion Gap 1 L, Estimated GFR > 60, Glucose 93, Calcium 7.9 L, Phosphorus 4.9 H, Magnesium 2.4 H, Total Bilirubin 0.2, AST 16 L, ALT 27, Albumin 1.7 L, CBC w Diff NO MAN DIFF REQ, RBC 3.24 L, MCV 81.0, MCH 26.0 L, RDW 19.5 H, MPV 6.2 L, Gran % 81.6 H, Lymphocytes % 12.5 L, Monocytes % 3.7, Eosinophils % 1.2, Basophils % 1.0, Absolute Granulocytes 9.8 H, Absolute Lymphocytes 1.5, Absolute Monocytes 0.5, Absolute Eosinophils 0.1, Absolute Basophils 0.1, PUBS MCHC 32.1 L Assessment/Plan Assessment/Plan Assessment: 1. Mental status changes; possibly opiate related - improved 2. Leukocytosis 3. DEE; history of nephrotic syndrome 4. ILD 5. PAF, currently in sinus rhythm 6. Worsening anemia 7. Polypoid esophageal lesion; work up in progress. Plan: * Agree with current regimen. * Okay to discontinue telemetry. * No further cardiac workup is needed at this time. Continue telemetry? No
[2016-10-10 00:45] VITALS: BP 156/76
[2016-10-10 07:45] VITALS: BP 150/82
--- NOTE | 2016-10-10 08:50 | PN- Housestaff ---
BILL GARCIA 10/10/16 0850: Subjective Follow-up For: Altered mental status Opioid use Complaints: no complaints Tele-Events Since Last Visit: Normal sinus rhythm, bundle branch block, heart rate 60-81. No overnight events were noted. Subjective: The patient was comfortable this morning. Did not have any complaints. He remained afebrile overnight. Vitals were stable. Currently on 2 L oxygen with oxygen saturation above 92%. Review of Systems Constitutional: Reports: see HPI. Objective Last 24 Hrs of Vital Signs/I&O Vital Signs Date Time Temp Pulse Resp B/P Pulse O2 O2 Flow FiO2 Ox Delivery Rate 10/10 0745 97.5 56 16 150/82 92 Nasal 2.0L Cannula 10/10 0045 99.3 77 18 156/76 95 Nasal Cannula 10/10 0000 Nasal 2.0L Cannula 10/09 2045 96 Nasal 2.0L Cannula 10/09 1643 98.6 72 18 132/72 99 Nasal 2.0L Cannula 10/09 1600 99 Nasal 2.0L Cannula 10/09 1025 94 Nasal 2.0L Cannula Intake & Output 10/10 1600 10/10 0800 10/10 0000 Intake Total 320 300 Output Total 400 1300 Balance -80 -1000 Intake, Oral 320 300 Number 0 Bowel Movements Output, Urine 400 1300 Physical Exam General Appearance: No Acute Distress Other Physical Findings: General Exam: AAOx3, No acute distress, Skin: No rashes, multiple ulcers on the torso. HEENT: PERRLA, EOMI Neck: Supple, No JVD No cervical lymphadenopathy CVS: Reg Rate, Normal S1,S2, No MGR Resp: Decreased air entry bilaterally, rhonchi bilateral. Abdomen: Soft, No tenderness, Normal Bowel Sounds Neuro: Normal Speech, Strength 5/5 b/l x 4 extremities, Sensation intact, CN III -XII NL, Reflexes 2+ Extremities: No cyanosis, pedal edema Current Medications: Current Medications Sig/Silvana Start time Last Medication Dose Route Stop Time Status Admin Acetaminophen 1,000 MG Q6P PRN 10/06 0545 AC IV Albuterol Sulfate 3 ML BID 10/06 220 AC 10/09 INH 2045 Heparin Sodium 5,000 UNIT Q8 10/08 1400 AC 10/10 (Porcine) SC 0648 Lidocaine 1 PAT 2300 10/07 230 AC 10/09 EXT 2318 Melatonin 5 MG AT BEDTIME 10/06 2300 AC 10/09 PO 2151 Omeprazole 40 MG BID 10/09 2200 AC 10/10 PO 0843 Oxycodone HCl 15 MG Q8P PRN 10/08 0845 AC 10/10 PO 0117 Oxycodone HCl 15 MG Q12 10/06 2230 AC 10/10 PO 0843 Pantoprazole Sodium 40 MG BID 10/07 2200 DC 10/09 IV 0846 Patient Medication 1 UNIT ONE NR 10/09 1645 DC 10/09 Teaching ED 10/09 1700 2153 Prednisone 5 MG DAILY 10/11 1000 AC PO Prednisone 10 MG DAILY 10/07 1800 AC 10/10 PO 10/10 2300 0843 Assessment/Plan Assessment: 51 y/o male with a PMH of HFprEF, hypertension, COPD on 2 L home O2, 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 Problem list- Altered mental status secondary to opiate intoxication-recovered Anemia secondary to GI bleed Leucocytosis secondary to steroid use Chronic kidney disease probably secondary to nephrotic syndrome Diastolic CHF Polypoid 6 centimeter Esophageal mass with parapharyngeal lymphadenopathy under evaluation Malnutrition Peripheral vascular disease-multiple ulcers on left lower leg Plan - Altered mental status secondary to opiate abuse * Currently, patient is oriented to time, place and person. * Dose of opiates resumed, to avoid withdrawl. * Advised to follow-up psychiatrist as an outpatient Acute hypoxic respiratory failure probably secondary to COPD exacerbation * Patient is off antibiotic * Prednisone 5 mg for ILD * TRC/nebulization Polypoid 6 centimeter Esophageal mass with parapharyngeal lymphadenopathy under evaluation * Advised to follow-up with Dr. Mcgraw within a 2 week of discharge to know the results of the biopsy * We will stop IV Protonix and start him on tablet omeprazole 40mg twice a day * H&H stable. Hemoglobin 8.9. Chronic kidney disease, nephrotic syndrome, hypoproteinemia * We will regularly monitor him * Advised to follow-up with hair spinner as an outpatient Peripheral vascular disease - We will follow wound care recommendation Advise to keep both legs elevated DVT prophylaxis-heparin Diet - regular diet CODE STATUS-full code Problem List: 1. Esophageal polyp Pain Ratin Pain Location: Lower extremities Pain Goal: Pain 4 or less Pain Plan: Oxycodone 50 mg every 8 when necessary OxyContin 15 mg now twice a day. Tomorrow's Labs & Rationales: cbc EMILIE HALL 10/10/16 1159: Attending MD Review Statement Attending Statement Attending MD Statement: examined this patient, discuss w/resident/PA/[employer], agreed w/resident/PA/[employer], discussed with family, reviewed EMR data (avail), discussed with nursing, discussed with case mgmt, reviewed images Attending Assessment/Plan: Impression/Plan: 1. toxic metabolic encephaloapthy resolved 2. ILD 2/2 inhlational injury on chronic steroid therapy with chronic hypoxemic respiratroy failure. 3. Severe anemia, without evidence of bleeding. Guaic + stool. mutlifactorial 4. Elevated leukocytosis, on chronic steroids. 5. Chronic CKD, nephrotic syndrome. 6. History of diastolic CHF with increased vascular congestion on CXR. 7. Esophageal mass and parapharyngeal lymphadenopathy, rule out malignancy. s/p egd 8. Malnutrition. 9. Unstageable wound on left gluteal fold. 10. Friable 6 cm polypoid esophageal lesion, with a pedunculated thick stalk - will need further intervention - referral to [facility] upon dc REC f/u EGD results pathology. Continue IV Protonix. change to PO as per GI recommendations. follow GI plan for EUS at d/c. prednisone 10 mg daily for today and then 5 mg daily indefinitely Skin care protocol in place, follow wound care recommendations. Keep patient's legs elevated. consult dietitian for malnutrition. Continue TRC. SQ heparin for DVT prophylaxis. Psychiatry and outreach and education social worker input appreciated. Continue all supportive care.
--- NOTE | 2016-10-10 12:44 | PN- Pulmonary ---
Subjective HPI/Critical Care Issues: Stable fatigued sitting in a chair Objective Current Medications: Current Medications Sig/Silvana Start time Last Medication Dose Route Stop Time Status Admin Acetaminophen 1,000 MG Q6P PRN 10/06 0545 AC IV Albuterol Sulfate 3 ML BID 10/06 2200 AC 10/10 INH 1048 Heparin Sodium 5,000 UNIT Q8 10/08 1400 AC 10/10 (Porcine) SC 0648 Lidocaine 1 PAT 2300 10/07 2300 AC 10/09 EXT 2318 Melatonin 5 MG AT BEDTIME 10/06 230 AC 10/09 PO 2151 Omeprazole 40 MG BID 10/09 2200 AC 10/10 PO 0843 Oxycodone HCl 15 MG Q8P PRN 10/08 0845 AC 10/10 PO 0117 Oxycodone HCl 15 MG Q12 10/06 2230 AC 10/10 PO 0843 Pantoprazole Sodium 40 MG BID 10/07 2200 DC 10/09 IV 0846 Patient Medication 1 UNIT ONE NR 10/09 1645 DC 10/09 Teaching ED 10/09 1700 2153 Prednisone 5 MG DAILY 10/11 1000 AC PO Prednisone 10 MG DAILY 10/07 1800 AC 10/10 PO 10/10 2300 0843 Vital Signs & I&O Last 24 Hrs of Vitals and I&O: Vital Signs Date Time Temp Pulse Resp B/P Pulse O2 O2 Flow FiO2 Ox Delivery Rate 10/10 1052 96 Nasal 2.0L Cannula 10/10 0745 97.5 56 16 150/82 92 Nasal 2.0L Cannula 10/10 0045 99.3 77 18 156/76 95 Nasal Cannula 10/10 0000 Nasal 2.0L Cannula 10/09 2045 96 Nasal 2.0L Cannula 10/09 1643 98.6 72 18 132/72 99 Nasal 2.0L Cannula 10/09 1600 99 Nasal 2.0L Cannula Intake & Output 10/10 1600 10/10 0800 10/10 0000 Intake Total 320 300 Output Total 400 1300 Balance -80 -1000 Intake, Oral 320 300 Number 0 Bowel Movements Output, Urine 400 1300 Impression/Plan Impression/Plan Impression/Plan: Exam General Appearance: no apparent distress, alert, awake Head: atraumatic, normal appearance Neck: supple Respiratory: no respiratory distress, faint bibasilar crackles Cardiovascular: regular rate/rhythm, S1 and S2 heard Abdomen: normal bowel sounds, soft, non-tender Extremities: no edema Skin: warm/dry, left lower extremity bandaged Impression/Plan: 1. Altered mental status, opiate intoxication, improved. 2. No evidence of seizure activity. 3. Severe anemia, without evidence of bleeding. Guaic + stool. 4. Elevated leukocytosis, on chronic steroids. Probable leukemoid reaction. 5. Chronic CKD, nephrotic syndrome. 6. History of diastolic CHF with increased vascular congestion on CXR. 7. Esophageal mass and parapharyngeal lymphadenopathy, rule out malignancy. s/p egd 8. Malnutrition. 9. Unstageable wound on left gluteal fold. 10. Friable 6 cm polypoid esophageal lesion, with a pedunculated thick stalk - will need further intervention - referral to [facility] upon dc REC * Diet per gi * Monitor for bleeding. * Watch off antibiotics. * Monitor the patient on pain pathway. Monitor for withdrawal symptoms. * Wean steroids * PPI * Skin care protocol in place, follow wound care recommendations. * Keep patient's legs elevated. * Continue TRC. * Add SQ heparin for DVT prophylaxis. * Psychiatry and social media senior associate input appreciated. * Continue all supportive care.
[2016-10-10 16:32] VITALS: BP 154/78
[2016-10-10 23:56] VITALS: BP 142/80
[2016-10-11 07:50] LABS: ABSOLUTE BASOPHIL COUNT 0.2 /CUMM (0.0-0.2); ABSOLUTE EOSINOPHIL COUNT 0.4 /CUMM (0.0-0.7); ABSOLUTE GRANULOCYTE CT 3.4 /CUMM (1.4-6.5); ABSOLUTE LYMPH COUNT 3.1 /CUMM (1.2-3.4); ABSOLUTE MONOCYTE COUNT 0.6 /CUMM (0.10-0.60); BASOPHIL % 2.1 % (0.0-2.0); EOSINOPHIL % 5.4 % (0-5); GRANULOCYTE % 44.5 % (42.2-75.2); HEMATOCRIT 28.5 % (42-52); MEAN CORPUSCULAR HGB 25.7 PG (27.0-31.0); MEAN CORPUSCULAR HGB CONC 32.1 G/DL (33.0-37.0); MEAN CORPUSCULAR VOLUME 80.2 FL (80.0-94.0); MEAN PLATELET VOLUME 6.3 FL (7.4-10.4); PLATELET COUNT 348 /CUMM (130-400); RBC DISTRIBUTION WIDTH 19.5 % (11.5-14.5); RED BLOOD CELL CT 3.56 /CUMM (4.70-6.10); WHITE BLOOD CELL COUNT 7.7 /CUMM (4.8-10.8)
[2016-10-11 08:10] VITALS: BP 140/80
--- NOTE | 2016-10-11 11:07 | PN- Housestaff ---
CA HULL,RAMESH 10/11/16 1107: Subjective Follow-up For: Altered mental status secondary to opiate intoxication-recovered Anemia secondary to GI bleed Leucocytosis secondary to steroid use Chronic kidney disease probably secondary to nephrotic syndrome Diastolic CHF Polypoid 6 centimeter Esophageal mass with parapharyngeal lymphadenopathy under evaluation Malnutrition Peripheral vascular disease-multiple ulcers on left lower leg Complaints: no complaints Tele-Events Since Last Visit: GM hold Subjective: Patient is seen and examined at the bedside. He was not having any active complaints. He is on 2 L oxygen and maintaining SPO2 97%. Review of Systems Constitutional: Denies: no symptoms. Comments: And denies of any active complaints Objective Last 24 Hrs of Vital Signs/I&O Vital Signs Date Time Temp Pulse Resp B/P Pulse O2 O2 Flow FiO2 Ox Delivery Rate 10/11 1249 98.2 94 20 150/81 97 Nasal 2.0L Cannula 10/11 0943 99 Nasal 3.0L Cannula 10/11 0810 98.1 79 20 140/80 97 Nasal 2.0L Cannula 10/11 0800 96 Nasal 2.0L Cannula 10/11 0000 96 Nasal 2.0L Cannula 10/10 2356 99.4 78 20 142/80 99 Nasal Cannula 10/10 2200 97 Nasal 2.0L Cannula Intake & Output 10/11 1600 10/11 0800 10/11 0000 Intake Total 800 750 Output Total 1050 Balance -250 750 Intake, Oral 800 750 Output, Urine 1050 Physical Exam General Appearance: Alert, Oriented X3, Cooperative, No Acute Distress Skin: bilateral lower leg pitting edema along with the redness Cardiovascular: Normal S1, Normal S2 Lungs: bilateral valcro like crackles Abdomen: Soft, No Tenderness Neurological: Normal Speech Extremities: bilateral pitting edema along with redness and thickness of the skin, there are multiple ulcers on left foot under dressing - not seen today Vascular: Normal Pulses Assessment/Plan Assessment: 51 y/o male with a PMH of HFprEF, hypertension, COPD on 2 L home O2, 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 Problem list- Altered mental status secondary to opiate intoxication-recovered Anemia secondary to GI bleed Leucocytosis secondary to steroid use Chronic kidney disease probably secondary to nephrotic syndrome Diastolic CHF Polypoid 6 centimeter Esophageal mass with parapharyngeal lymphadenopathy under evaluation Malnutrition Peripheral vascular disease-multiple ulcers on left lower leg Plan - Discharge today Altered mental status secondary to opiate abuse * Currently, patient is oriented to time, place and person. * Dose of opiates resumed, to avoid withdrawl. * Advised to follow-up psychiatrist as an outpatient Acute hypoxic respiratory failure probably secondary to COPD exacerbation * Patient is off antibiotic * Prednisone 5 mg for ILD * TRC/nebulization Polypoid 6 centimeter Esophageal mass with parapharyngeal lymphadenopathy under evaluation * Advised to follow-up with Dr. Mcgraw within a 2 week of discharge to know the results of the biopsy * We will stop IV Protonix and start him on tablet omeprazole 40mg twice a day * H&H stable. Hemoglobin 8.9. Chronic kidney disease, nephrotic syndrome, hypoproteinemia * We will regularly monitor him * Advised to follow-up with side stapler as an outpatient Peripheral vascular disease - We will follow wound care recommendation Advise to keep both legs elevated DVT prophylaxis-heparin Diet - regular diet CODE STATUS-full code Problem List: 1. Esophageal polyp 2. Pneumonia 3. Interstitial edema 4. UTI (urinary tract infection) 5. Acute kidney injury Pain Ratin Pain Location: lower leg Pain Goal: Remain pain free Pain Plan: mild, avoid NSAIDs Tomorrow's Labs & Rationales: none as pt is discharged DVT/Prophylaxis: mechanical, pharmacological JAMAICA BOOTH MD 10/11/16 1418: Attending MD Review Statement Attending Statement Attending MD Statement: examined this patient, discuss w/resident/PA/[employer], agreed w/resident/PA/[employer], reviewed EMR data (avail) Attending Assessment/Plan: Patient is back to baseline. Treated for acute respiratory failure and GI bleed , pathology pending. Patient is stable for discharge, will continue home medications, stop gabapentin and amitryptiline due to oversedation, and patient may follow up with his PCP for restarting those. Will continue PPI and low dose Prednisone, and patient may follow up as outpatient.
--- NOTE | 2016-10-11 11:25 | PN- Pulmonary ---
Subjective HPI/Critical Care Issues: pt seen and examined transferred out of icu doing well on tele no new events on 3LNC on oxygen at home afebrile hemodynamically stable Objective Current Medications: Current Medications Sig/Silvana Start time Last Medication Dose Route Stop Time Status Admin Acetaminophen 1,000 MG Q6P PRN 10/06 0545 AC IV Albuterol Sulfate 3 ML BID 10/06 2200 AC 10/11 INH 0938 Heparin Sodium 5,000 UNIT Q8 10/08 1400 AC 10/11 (Porcine) SC 0616 Lidocaine 1 PAT 2300 10/07 2300 AC 10/10 EXT 2232 Melatonin 5 MG AT BEDTIME 10/06 2300 AC 10/10 PO 2231 Omeprazole 40 MG BID 10/09 2200 AC 10/11 PO 1000 Oxycodone HCl 15 MG Q8P PRN 10/08 0845 AC 10/10 PO 1918 Oxycodone HCl 15 MG Q12 10/06 2230 AC 10/11 PO 1005 Prednisone 5 MG DAILY 10/11 1000 AC 10/11 PO 1000 Prednisone 10 MG DAILY 10/07 1800 DC 10/10 PO 10/10 2300 0843 Vital Signs & I&O Last 24 Hrs of Vitals and I&O: Vital Signs Date Time Temp Pulse Resp B/P Pulse O2 O2 Flow FiO2 Ox Delivery Rate 10/11 0943 99 Nasal 3.0L Cannula 10/11 0810 98.1 79 20 140/80 97 Nasal 2.0L Cannula 10/11 0000 96 Nasal 2.0L Cannula 10/10 2356 99.4 78 20 142/80 99 Nasal Cannula 10/10 2200 97 Nasal 2.0L Cannula 10/10 1632 98.3 69 20 154/78 98 Nasal 2.0L Cannula 10/10 1600 96 Nasal 2.0L Cannula Intake & Output 10/11 1600 10/11 0800 10/11 0000 Intake Total 800 750 Output Total 1050 Balance -250 750 Intake, Oral 800 750 Output, Urine 1050 Exam Other Physical Findings: gen awake and alert heent on o2 cvs s1, s2 lungs rare rhonchi abd soft bs+ ext without edema Results Last 24 Hrs of Lab Results: Laboratory Tests 10/11/16 0617: Anion Gap 0 L, Estimated GFR > 60, BUN/Creatinine Ratio 10.0, CBC w Diff NO MAN DIFF REQ, RBC 3.56 L, MCV 80.2, MCH 25.7 L, RDW 19.5 H, MPV 6.3 L, Gran % 44.5, Lymphocytes % 40.5, Monocytes % 7.5, Eosinophils % 5.4 H, Basophils % 2.1 H, Absolute Granulocytes 3.4, Absolute Lymphocytes 3.1, Absolute Monocytes 0.6, Absolute Eosinophils 0.4, Absolute Basophils 0.2, PUBS MCHC 32.1 L Impression/Plan Impression/Plan Impression/Plan: Impression 51 year old man * anemia likely secondary to GI bleed, now stable * ckd * opiate intoxication * diastolic chf * esophageal mass/lymphadenopathy Plan -gi follow up -trc/nebs -o2 sat goal >92% -off abx -steroid taper -esophageal workup per GI DVT prophylaxis at all times
[2016-10-11 12:49] VITALS: BP 150/81
[2016-10-11] MEDS ORDERED: LASIX40 M1 PO ×2 (12:59→13:23)
[2016-10-11] MEDS ORDERED: PREDNISONE5 M1 PO ×2 (12:59→13:55)
--- NOTE | 2016-10-11 13:10 | Patient Discharge Instructions ---
Discharge Instructions General Discharge Information You were seen/treated for: altered mental status Special Instructions: please follow up with your PCP with in a week of discharge.Please discuss about the home medication you were on. please follow up with pulmonology with in a week of discharge please avoid sedative and hypnotics. PLEASE FOLLOW UP WITH GASTEROENTEROLOGY TO KNOW THE RESULTS OF BIOPSY AND FURTHER WORK UP. Diet Recommended Diet: Heart Healthy Activity Full Activity/No Limits: No (as tolerated ) Acute Coronary Syndrome Inclusion Criteria At DC or during hospital stay patient has or had the following: ACS DIAGNOSIS No Discharge Core Measures Meds if any: Prescribed or Continued at Discharge Meds if any: NOT Prescribed or Continued at Discharge Congestive Heart Failure Inclusion Criteria At DC or during hospital stay patient has or had the following: CHF DIAGNOSIS No Discharge Core Measures Meds if any: Prescribed or Continued at Discharge Meds if any: NOT Prescribed or Continued at Discharge Cerebrovascular accident Inclusion Criteria At DC or during hospital stay patient has or had the following: CVA/TIA Diagnosis No Discharge Core Measures Meds if any: Prescribed or Continued at Discharge Meds if any: NOT Prescribed or Continued at Discharge Venous thromboembolism Inclusion Criteria VTE Diagnosis No VTE Type NONE VTE Confirmed by (Test) NONE Discharge Core Measures - Per Current guidelines, there needs to be overlap - treatment for the first 5 days of Warfarin therapy. - If discharged on Warfarin prior to 5 days of - overlap therapy, the patient will need to be - assessed for post discharge needs including - *Post discharge parental anticoagulation - *Warfarin and/or parental anticoagulation education - *Follow up date to check INR post discharge At least 5 days overlap therapy as Inpatient No Meds if any: Prescribed or Continued at Discharge Note: Overlap Therapy is Warfarin and Anticoagulant Meds if any: NOT Prescribed or Continued at Discharge
[2016-10-11] MEDS ORDERED: OMEPRAZOLE20 M2 PO (13:15)
[2016-10-11] MEDS ORDERED: OMEPRAZOLE40 M1 PO (13:55)
--- NOTE | 2016-10-11 14:53 | Discharge Summary ---
See Addendum Visit Information Visit Dates Admission Date: 10/06/16 Discharge Date: 10/11/16 Hospital Course Course Attending Physician: Dr Breana Ramos Primary Care Physician: YULI FRAZIER MD Hospital Course: Patient is a 51-year-old wheelchair bound, male, with significant past medical history of COPD(Ex-Smoker) on 2 L of Oxygen, interstitial lung disease(secondary to propane exposure) on steroid, recurrent lung infections, pulmonary hypertension, systemic hypertension, hyperlipidemia, CHF, RBBB, DJD, osteoporosis, peripheral neuropathy, chronic pain syndrome, Avascular necrosis, type 2 diabetes, early diabetic nephropathy, arteriolonephrosclerosis, chronic anemia required blood transfusion presented with chief complains of unresponsiveness. On examiantion his SpO2 -89% on RA and he was resposive only to deep painful stimulus. On 2 liter oxygen, his saturation went up to 99%. He was given an injection of Narcaine but he did not respond to it. Vital signs at the time of admission -temperature 98.0, pulse 109, respiratory rate 19, blood pressure 90/52, SPO2 98% on 2 liters Pertinent labs -WBC -[id number] Acute hypoxic respiratory failure and Altered mental status secondary to opiate overdose(?) with baseline ILD on 2L home oxygen * On evaluation, his WBC count 35,000, U tox was positive for the opiate level of 827,blood pressure was 90/53 and ABG showed a pH of 7.35, PCO2 41, PCO2 71, bicarbonate,CT scan of head did not show any acute intracranial pathology. Chest x-ray showed interstitial lung disease with superimposed interstitial edema. We admitted him in the ICU for further monitoring.We regularly monitored his respiratory status and did suppotive treatment. * We did consult neurologist(Dr Adamson), they advised for EEG, which did not show any true seizure-like activity.They advised to treat the patient on the line of metabolic encephalopathy. * He did responded to supportive care. * We stopped gabapentin, amitriptyline due to oversedation. We discharged him with advise to follow-up with PCP for further consideration on this medication. We continued low-dose prednisone(5mg) on discharge. GI bleed found to have polypoid 6 centimeter Esophageal mass with parapharyngeal lymphadenopathy and biopsy showed moderately differentiated adenocarcinoma * We did upper GI endoscopy and gave him on IV Protonix initialy. * Upper GI endoscopy showed a 6 centimeter polypoidal esophageal mass, which we sent for biopsy. * We stopped IV Protonix and started him on tablet omeprazole 40mg twice a day at the time of discharge. We Advised to follow-up with Dr. Mcgraw within a 2 week of discharge to know further management. * We received pathologic report after discharge which showed moderately differentiated adenocarcinoma.Dr. Mcgraw and PCP is aware. Chronic kidney disease, nephrotic syndrome, hypoproteinemia * We did regularly monitored his creatinine.Advised to follow-up with qm consultant as an outpatient. Peripheral vascular disease and multiple wound - * We did and advised to keep the limb elevated and follow-up with Wound Care for further management. Allergies: Coded Allergies: Iodinated Contrast Media - Oral and (IODINATED CONTRAST MEDIA - IV DYE) (RED RASH TOLERATES WITH BENADRYL 01/12/16) Disposition Summary Disposition Principal Diagnosis: Altered mental status secondary to opiate intoxication-recovered Polypoid 6 centimeter Esophageal mass with parapharyngeal lymphadenopathy under evaluation Anemia secondary to GI bleed Leucocytosis secondary to steroid use Additional Diagnosis: Chronic kidney disease secondary to nephrotic syndrome Diastolic CHF Malnutrition Peripheral vascular disease-multiple ulcers on left lower leg Discharge Disposition: home health services Discharge Instructions General Discharge Information Code Status: Full Code Patient's Diet: Heart healthy diet Patient's Activity: As tolerated Follow-Up Instructions/Appts: please follow up with your PCP with in a week of discharge.Please discuss about the home medication you were on. please follow up with pulmonology with in a week of discharge please avoid sedative and hypnotics. PLEASE FOLLOW UP WITH GASTEROENTEROLOGY TO KNOW THE RESULTS OF BIOPSY AND FURTHER WORK UP. Medications at Discharge Discharge Medications: Stop taking the following medications: Risedronate Sodium (Actonel) 35 MG TABLET ORAL EVERY TUESDAY Gabapentin (Neurontin) 800 MG TABLET ORAL 4 TIMES A DAY Amitriptyline HCl (Amitriptyline HCl) 150 MG TABLET ORAL Every night Prednisone (Prednisone) 10 MG TABLET ORAL DAILY Days = 30 Aspirin (Ecotrin*) 81 MG TABLET.DR ORAL DAILY Continue taking these medications: Albuterol Sulfate (Proair Hfa) 90 MCG HFA.AER.AD 2 Puff Inhale through mouth EVERY 4-6 HOURS NEEDED as needed for BREATHING PROBLEMS Comments: NOT GIVEN WHILE IN HOSPITAL Baclofen (Baclofen) 10 MG TABLET 1 Tablet ORAL THREE TIMES DAILY Instructions: NO GIVEN IN THE HOSPITAL Comments: Last Taken: 09/08/16 Time: 10AM Losartan Potassium (Cozaar) 50 MG TABLET 1 Tablet ORAL DAILY Comments: Last Taken: 09/08/16 Time: 10AM Fluticasone-Salmeterol (Advair 100-50 Diskus) 100 MCG-50 MCG/DOSE BLST.W.DEV 1 Puff Inhale through mouth TWICE DAILY Qty = 180 Instructions: NOT GIVEN IN THE HOSPITAL Comments: Last Taken: 09/08/16 Time: 10AM SYMBICORT GIVEN SUBSTITUTION Albuterol Sulfate (Albuterol Sulfate) 2.5 MG/3 ML (0.083 %) VIAL.NEB 1 Vial Inhale Solution as needed for COPD Comments: Last Taken: 10/11/16 Time: 9:38AM Ferrous Sulfate (Ferrous Sulfate) 325 MG (65 MG IRON) TABLET 1 Tablet ORAL DAILY Instructions: NOT GIVEN IN THE HOSPITAL Comments: Last Taken: 09/08/16 Time: 10AM Oxycodone HCl (Oxycontin) 15 MG TAB.ER.12H 15 Milligram ORAL Q12H Qty = 30 Comments: Last Taken: 09/08/16 Time: 5:30AM Oxycodone HCl (Oxycodone HCl) 5 MG TABLET 15 Milligram ORAL EVERY 8 HOURS NEEDED as needed for pain 7-10 Qty = 30 Comments: Last Taken: 09/08/16 Time: 12:30PM Start taking the following new medications: Prednisone (Prednisone) 5 MG TABLET 1 Tablet ORAL DAILY Qty = 30 No Refills Omeprazole (Omeprazole) 40 MG CAPSULE.DR 1 Capsule ORAL DAILY Qty = 30 No Refills The following medications have been changed: Old: Furosemide (Lasix) 40 MG TABLET 1 Tablet ORAL EVERY 48 HRS Qty = 30 New: Furosemide (Lasix) 40 MG TABLET 1 Tablet ORAL DAILY Qty = 30 Comments: Last Taken: 09/08/16 Time: 5:30AM Copies To: FREDDIE HULL,YULI Canela Attending MD Review Statement Documenting Attending: JAMAICA BOOTH MD
[2016-12-07] MEDS ORDERED: FOSAMAX70 M1 PO (15:53)
[2016-12-07] MEDS ORDERED: PREDNISONE10 M2 PO (15:53)
[2016-12-07] MEDS ORDERED: AMITRIPTYLINE150 M2 PO (15:54)
[2016-12-07] MEDS ORDERED: METOLAZONE (15:55)
[2016-12-07] MEDS ORDERED: NEURONTIN800 M2 PO (15:56)
[2016-12-07] MEDS ORDERED: OXYCONTIN40 M1 PO (15:56)
[2016-12-07] MEDS ORDERED: OXYCODONE HCL30 M1 PO (15:56)
[2016-12-07] MEDS ORDERED: FUROSEMIDE40 M1 PO (15:56)
== END 2016-10-11 17:35 | disposition home health service (06) | DRG 917 ==
LOC: ENRESERVTM → ENRESERVDT → ERH 03:29 → 2NB 04:33 → CRI 04:33 → ERHI 04:33 → ENPENDDIS 04:33 → CRI 09:47 → 1NO 10-08 16:11 → 2NB 10-11 12:20
PROVIDERS: Internal Medicine Endocrinology, Diabetes & Metabolism; Pediatrics; Student in an Organized Health Care Education/Training Program; ADMIT Student in an Organized Health Care Education/Training Program
PROC: 30233N1 Transfusion of Nonautologous Red Blood Cells into Peripheral Vein, Percutaneous Approach (ICD-10-PCS; principal; 2016-10-06)
PROC: 0DB98ZX Excision of Duodenum, Via Natural or Artificial Opening Endoscopic, Diagnostic (ICD-10-PCS; 2016-10-07)
PROC: 0DB58ZX Excision of Esophagus, Via Natural or Artificial Opening Endoscopic, Diagnostic (ICD-10-PCS; 2016-10-07)
DX: T40.601A Poisoning by unspecified narcotics, accidental (unintentional), initial encounter (principal); J96.21 Acute and chronic respiratory failure with hypoxia; G92 Toxic encephalopathy; N17.9 Acute kidney failure, unspecified; L89.310 Pressure ulcer of right buttock, unstageable; I13.0 Hypertensive heart and chronic kidney disease with heart failure and stage 1 through stage 4 chronic kidney disease, or unspecified chronic kidney disease; E46 Unspecified protein-calorie malnutrition; C15.9 Malignant neoplasm of esophagus, unspecified; I50.32 Chronic diastolic (congestive) heart failure; K92.2 Gastrointestinal hemorrhage, unspecified; J44.1 Chronic obstructive pulmonary disease with (acute) exacerbation; M87.9 Osteonecrosis, unspecified; R56.9 Unspecified convulsions; Z99.81 Dependence on supplemental oxygen; N18.9 Chronic kidney disease, unspecified; J44.9 Chronic obstructive pulmonary disease, unspecified; J68.9 Unspecified respiratory condition due to chemicals, gases, fumes and vapors; M85.89 Other specified disorders of bone density and structure, multiple sites; E78.5 Hyperlipidemia, unspecified; G62.9 Polyneuropathy, unspecified; D64.9 Anemia, unspecified; R59.0 Localized enlarged lymph nodes; N05.9 Unspecified nephritic syndrome with unspecified morphologic changes; I87.8 Other specified disorders of veins; G89.4 Chronic pain syndrome; I73.9 Peripheral vascular disease, unspecified
CPT/HCPCS: 1NP; 87184; CCU; 36415; 74176; 80307; 81001; 82436; 86920; 87040; 87070; 87086; 87147; 88305; 93005; 93010; 95816; 96361; 96372; 96374; 96375; 99233; 99291; G0480; J0131; J0713; J1644; J1885; J2250; J2310; J2920; J3370; J7060; J7512; P9016

== ENCOUNTER 2016-12-08 14:44 | Inpatient (IN) | payer OTHER ==
[~2016-12-08] VITALS: Ht 182.9 cm; Wt 84.6 kg
[~2016-12-08 14:44] MED LIST changes: +FOSAMAX70 M1 PO; +METOLAZONE; +OMEPRAZOLE20 M2 PO; +OMEPRAZOLE40 M1 PO; +OXYCONTIN40 M1 PO; +PREDNISONE5 M1 PO
--- NOTE | 2016-12-08 14:50 | ED GENERAL ADULT ---
See Addendum History of Present Illness General Chief Complaint: Altered Mental Status Stated Complaint: BIBA UNRESPONSIVE Source: EMS Exam Limitations: clinical condition, confusion Allergies Coded Allergies: Iodinated Contrast Media - Oral and (IODINATED CONTRAST MEDIA - IV DYE) (RED RASH TOLERATES WITH BENADRYL 01/12/16) Reconcile Medications Albuterol Sulfate (Proair Hfa) 90 MCG HFA.AER.AD 2 PUF INH Q4-6 PRN PRN BREATHING PROBLEMS (Reported) Albuterol Sulfate 2.5 MG/3 ML (0.083 %) VIAL.NEB 1 Vial INH/[place] PRN COPD ( Reported) Alendronate Sodium (Fosamax) 70 MG TABLET 1 TAB PO QW OSTEOPOROSIS (Reported) in the morning, at least 30 minutes before the first food, beverage, or medication of the day Amitriptyline HCl 150 MG TABLET 1 TAB PO QPM SLEEP (Reported) Baclofen 10 MG TABLET 1 TAB PO TID MUSCLE SPASMS (Reported) NO GIVEN IN THE HOSPITAL Fluticasone-Salmeterol (Advair 100-50 Diskus) 100 MCG-50 MCG/DOSE BLST.W.DEV 1 PUF INH BID COPD (Reported) NOT GIVEN IN THE HOSPITAL Furosemide 40 MG TABLET 1 TAB PO BID EDEMA (Reported) Gabapentin (Neurontin) 800 MG TABLET 1 TAB PO 4X PER DAY NEUROPATHY (Reported ) Losartan Potassium (Cozaar) 50 MG TABLET 1 TAB PO DAILY BP (Reported) [METOLAZONE] EDEMA (Reported) Oxycodone HCl 30 MG TABLET 1 TAB PO TIDPRN PAIN (Reported) Oxycodone HCl (Oxycontin) 40 MG TAB.ER.12H 1 TAB PO BID PAIN (Reported) Prednisone 10 MG TABLET 1 TAB PO DAILY LUNGS (Reported) Triage Nurses Notes Reviewed? yes Onset: Abrupt Duration: hour(s): Timing: recent history HPI: 12/08/16 The patient was seen on arrival 51-year-old male with a past medical history of recently diagnosed esophageal carcinoma chronic underlying lung disease and opiate dependence. He presented to the emergency department after becoming unresponsive this morning. EMS was called and they found him to be apneic. He was breathing at 3 times per minute with myotic pupils. He was given IV Narcan. He became more responsive but had gargling respirations. Shortly upon arrival in the emergency department his respiratory status further deteriorated. He was treated with IV Narcan 1 mg. He continued to be hypoxic and have difficulty breathing despite suctioning. He briefly went into cardiac arrest. CPR was started and the patient was intubated with a 7.5 endotracheal tube using the cane vision. Good equal breath sounds were auscultated. No breath sounds were heard over the stomach. There was good color change on the end-tidal CO2 monitor. Thick yellow secretions were suctioned from the endotracheal tube. His saturation was soon 100%. The onset of the symptoms were abrupt, the duration was really unknown, this very significant; as his symptoms are identical to the emergency department for care. (LI FOX DO) Vital Signs & Intake/Output Vital Signs & Intake/Output Vital Signs Date Time Temp Pulse Resp B/P B/P Pulse O2 O2 Flow FiO2 Mean Ox Delivery Rate 12/08 1612 97.0 103 24 69/39 12/08 1545 98 Ventilator 55% 12/08 1530 109 32 103/54 99 Ventilator 55% 12/08 1515 96.8 114 24 128/54 100 Ventilator 55% Past History Travel History Traveled to [place] past 21 day No Medical History Any Pertinent Medical History? 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), ARDS and prolonged mechanical ventilation Gastrointestinal: hx OB+ stool Hepatic: NONE Renal: chronic kidney disease Musculoskeletal: OSTEOPENIA 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 Psychiatric: depression Endocrine: diabetes Blood Disorders: NONE (multifactorial), anemia Cancer(s): NONE AP PROCESSOR/Reproductive: NONE Other Medical Hx: reactive adenopathy History of MRSA: Yes History of VRE: No History of CDIFF: No Influenza Vaccine: 07/31/16 Surgical History Surgical History: VENOUS CLOSURE X 5 TO BLE BRONCHOSCOPY Psychosocial History Who do you live with Significant Other Services at Home Oxygen What is your primary language Icelandic Family History Family History, If Any: SISTER FH: hypertension FATHER, , Age 42. Cerebral hemorrhage MOTHER ([employer]). Age 74. BROTHER, Age 49. BROTHER ([employer]). MGF, , Age 80; Cause: Gastric carcinoma. Relation not specified for: gastric cancer Hx Contributory? No (LI FOX DO) Review of Systems Review of Systems Constitutional: Denies: fever. EENTM: Reports: no symptoms. Respiratory: Reports: short of breath, sputum production, wheezing. Cardiovascular: Reports: no symptoms. GI: Reports: no symptoms. Genitourinary: Reports: no symptoms. Musculoskeletal: Reports: no symptoms. Skin: Reports: no symptoms. Neurological/Psychological: Reports: confusion. Hematologic/Endocrine: Reports: no symptoms. Immunologic/Allergic: Reports: no symptoms. (LI FOX DO) Physical Exam Physical Exam General Appearance: intubated, severe distress Head: pale Eyes: Bilateral: other (pupils mydriatic). Ears, Nose, Throat: THICK SECRETIONS Neck: trachea mid line Respiratory: rhonchi Cardiovascular: TACHYCARDIA Peripheral Pulses: 4+ radial (R), 4+ radial (L) Gastrointestinal: DISTENDED Back: decreased range of motion Extremities: pedal edema Neurologic/Psych: CONFUSED, NON-FOCAL Skin: pallor Core Measures ACS in differential dx? No CVA/TIA Diagnosis: No Severe Sepsis Present: No Septic Shock Present: No (LI FOX DO) Progress Differential Diagnoses I considered the following diagnoses in my evaluation of the patient: [ Aspiration pneumonia, drug overdose, GI bleed, sepsis] CXR Impression: no acute abnormality (GOOD ET POSITION, NGT IN PLAC) Initial ED EKG: sinus tach, RBBB, NO CHANGE Prior EKG: unchanged (LI FOX DO) Plan of Care: Orders Procedure Date/time Status LACTIC ACID 12/08 1753 Active LOWER RESPIRATORY CULTURE 12/08 1603 Active Add-on Test (ER Only) 12/08 1553 Active EKG 12/[address] HEAD WO IV CONTRAST 12/08 1553 Active ETHANOL 12/08 1524 Active VENTILATOR PARAMETERS 12/08 1515 Complete ARTERIAL BLOOD GAS (GEN) 12/08 1453 Complete Telemetry/Filler Shredder 12/08 1453 Active Smith, Insertion/Removal/Asses 12/08 1453 Active CULTURE,URINE 12/08 1453 Active BLOOD CULTURE 12/08 1453 Active URINE DRUG SCREEN FOR ER ONLY 12/08 1453 Complete TROPONIN LEVEL 12/08 1453 Active LACTIC ACID 12/08 1453 Active D-DIMER 12/08 1453 Complete COMPREHENSIVE METABOLIC PANEL 12/08 1453 Active CBC WITHOUT DIFFERENTIAL 12/08 1453 Complete B-TYPE NATRIURETIC PEP (BNP) 12/08 1453 Active Current Medications Sig/Silvana Start time Last Medication Dose Stop Time Status Admin Naloxone HCl 2 MG ONCE ONE 12/08 1630 UNVr (Narcan) 12/08 1631 Naloxone HCl 2 MG ONCE ONE 12/08 1630 UNVr (Narcan) 12/08 1631 Ampicillin Sodium/ 3,000 MG ONCE ONE 12/08 1615 UNVr Sulbactam Sodium 12/08 1644 (Unasyn) Sodium Chloride 100 ML (Normal Saline 0.9%) Sodium Chloride 1,000 ML BOLUS ONE 12/08 161 UNVr (Normal Saline 0.9%) 12/08 1714 Sodium Chloride 1,000 ML BOLUS ONE 12/08 161 UNVr (Normal Saline 0.9%) 12/08 171 Sodium Chloride 1,000 ML BOLUS ONE 12/08 161 UNVr (Normal Saline 0.9%) 12/08 1714 Norepinephrine 4 MG ONCE ONE 12/08 1600 UNir 12/08 (Levophed Drip) 12/08 1601 1612 Sodium Chloride 250 ML (Normal Saline 0.9%) Laboratory Tests 12/08/16 1550: pH 7.15 *L, pCO2 47 H, pO2 90, HCO3 16 L, ABG O2 Sat (Measured) 91.0 L, P-50 (Temp Corrected) N, Carboxyhemoglobin 4.0, O2 Concentration % 55%, Temperature 97.0, Respiration Rate 24, O2 Delivery Method ESPRIT VENT, Vent Mode AC, Expiratory Pressure 5, Tidal Volume 500, Phlebotomy Draw Site RIGHT RADIAL 12/08/16 1524: Anion Gap 7, Estimated GFR 40 L, BUN/Creatinine Ratio 8.9, Glucose 148 H, Lactic Acid 4.8 H, Calcium 6.4 L, Total Bilirubin < 0.1 L, AST 41, ALT 29, Alkaline Phosphatase 163 H, Troponin I 0.04, Ybo-Z-Yaceharmapl Pept 6150 H, Total Protein 4.2 L, Albumin 1.5 L, Globulin 2.7, Albumin/Globulin Ratio 0.6 L, D-Dimer 3199 H, CBC w Diff MAN DIFF ORDERED, RBC 3.15 L, MCV 81.4, MCH 25.9 L, RDW 17.8 H, MPV 6.0 L, Gran % 88.2 H, Lymphocytes % 7.0 L, Monocytes % 2.4, Eosinophils % 2.3, Basophils % 0.1, Absolute Granulocytes 17.4 H, Segmented Neutrophils 60, Band Neutrophils 25 H, Absolute Lymphocytes 1.4, Lymphocytes 7 L, Monocytes 5, Absolute Monocytes 0.5, Eosinophils 2, Absolute Eosinophils 0.5, Absolute Basophils 0, Metamyelocytes 1, Platelet Estimate VERIFIED BY SMEAR, Normocytic RBCs VERIFIED, Normochromic RBCs VERIFIED, PUBS MCHC 31.8 L, Serum Alcohol Pending 12/08/16 1510: Urine Opiates Screen 919.00, Methadone Screen 82, Barbiturate Screen < 60, Ur Phencyclidine Scrn < 6.00, Amphetamines Screen 107, U Benzodiazepines Scrn < 85, Urine Cocaine Screen < 50, Urine Cannabis Screen < 5.00 Microbiology 12/08 1616 BLOOD: Blood Culture - RECD 12/08 1600 LOWER RESP: Respiratory Culture - RECD 12/08 1600 LOWER RESP: Gram Stain - RECD 12/08 1524 BLOOD: Blood Culture - RECD 12/08 1510 URINE ROUT: Urine Culture - RECD Departure Departure Disposition: STILL A PATIENT Condition: Stable Clinical Impression Primary Impression: Respiratory failure Referrals: YULI FRAZIER MD (PCP/Family) Departure Forms: Customer Survey General Discharge Information Admission Note Spoke With: DERRICK HULL,Fabio ARANA Documentation of Exam: Documentation of any treatments & extenuating circumstances including Concerns Regarding Discharge (functional status, medication knowledge or non-compliance, living conditions, etc.) that warrant an admission rather than observation: [The patient needs admission for IV antibiotics, pulmonary suctioning, ventilatory support, IV vasopressors.] A central line was placed in the right femoral vein under my direct supervision by Manuel Santizo. There were no complications. (LI FOX DO) Procedures Central Line Central Line Lumen: triple Central Line Procedure: Yes: bentadine prep?, sterile drapes applied, sterile dressing applied. Central Line Position: femoral (R) Anesthesia: PT SEDATED, INTUBATED, NO LOCAL Complications: none Central Line Post Position: sutured, good blood return Progress: TOLERATED PROCEDURE WELL. (SUKHI PANG,MANUEL) Critical Care Note Critical Care Note Critical Care Time: 30-74 min (LI FOX DO)
--- NOTE | 2016-12-08 15:36 | RADIOLOGY REPORT ---
EXAMINATION: XR PORTABLE CHEST CLINICAL INFORMATION: Altered mental status COMPARISON: Multiple prior studies. Most recent chest x-ray 10/06/2016 TECHNIQUE: Portable frontal view of the chest was obtained. 3:15 PM FINDINGS: Patient rotated to left. There is no endotracheal tube catheter present. Catheter tip is approximately 5 cm above luis enrique in good position. Nasogastric tube passes down into the stomach. There is chronic increased interstitial lung markings. Patient has known interstitial lung disease. Increased lung markings have diminished since the exam of 10/06/2016 and appears similar to baseline chest x-ray of 08/19/2016. No pleural effusion. No pneumothorax. Subchondral sclerotic changes of the right humeral head similar prior study. Healed right lateral eighth rib fracture. IMPRESSION: 1. Endotracheal tube catheter in good position 5 cm above luis enrique. 2. Nasogastric tube in stomach. 3. Chronic increased interstitial lung markings consistent with interstitial lung disease. No acute abnormality the chest.
[2016-12-08 15:45] LABS: ABSOLUTE BASOPHIL COUNT 0 /CUMM (0.0-0.2); ABSOLUTE EOSINOPHIL COUNT 0.5 /CUMM (0.0-0.7); ABSOLUTE GRANULOCYTE CT 17.4 /CUMM (1.4-6.5); ABSOLUTE LYMPH COUNT 1.4 /CUMM (1.2-3.4); ABSOLUTE MONOCYTE COUNT 0.5 /CUMM (0.10-0.60); BASOPHIL % 0.1 % (0.0-2.0); EOSINOPHIL % 2.3 % (0-5); HEMATOCRIT 25.6 % (42-52); MEAN CORPUSCULAR HGB 25.9 PG (27.0-31.0); MEAN CORPUSCULAR HGB CONC 31.8 G/DL (33.0-37.0); MEAN CORPUSCULAR VOLUME 81.4 FL (80.0-94.0); PLATELET COUNT 378 /CUMM (130-400); RBC DISTRIBUTION WIDTH 17.8 % (11.5-14.5); RED BLOOD CELL CT 3.15 /CUMM (4.70-6.10); WHITE BLOOD CELL COUNT 19.7 /CUMM (4.8-10.8)
[2016-12-08 15:46] LABS: GRANULOCYTE % 88.2 % (42.2-75.2)
--- NOTE | 2016-12-08 16:59 | History & Physical ---
[facility] 12/08/16 3686: General Information and HPI MD Statement: I have seen and personally examined TORSTEN CHAUDHARI and documented this H&P. The patient is a 51 year old M who presented with a patient stated chief complaint of [altered mental status and unresponsiveness]. Source of Information: family, old records Exam Limitations: pt intubated History of Present Illness: This is a 51-year-old gentleman whose medical issues include diastolic CHF, hypertension, COPD with 2 L home oxygen dependence, ILD, history of large with prolonged mechanical ventilation, CKD, neuropathy that presented to the emergency room via ambulance after family found him unresponsive on the couch. They stated that this morning he was okay and was sitting on the couch while they were outside working on his car, after leaving him on attended for about 45 minutes to return inside the house and found him to be unresponsive with oral secretions. He was subsequently brought to the emergency room via ambulance where he received Narcan with mild alleviation in his respiratory status. Patient went into cardiac arrest and bradycardia CPR was administered with 2 rounds of epinephrine, subsequently he had return of rhythm and pulses he was intubated and a right femoral central line was placed. He is currently on levophed. Allergies/Medications Allergies: Coded Allergies: Iodinated Contrast Media - Oral and (IODINATED CONTRAST MEDIA - IV DYE) (RED RASH TOLERATES WITH BENADRYL 01/12/16) Home Med list Albuterol Sulfate (Proair Hfa) 90 MCG HFA.AER.AD 2 PUF INH Q4-6 PRN PRN BREATHING PROBLEMS (Reported) Albuterol Sulfate 2.5 MG/3 ML (0.083 %) VIAL.NEB 1 Vial INH/[place] PRN COPD ( Reported) Alendronate Sodium (Fosamax) 70 MG TABLET 1 TAB PO QW OSTEOPOROSIS (Reported) in the morning, at least 30 minutes before the first food, beverage, or medication of the day Amitriptyline HCl 150 MG TABLET 1 TAB PO QPM SLEEP (Reported) Baclofen 10 MG TABLET 1 TAB PO TID MUSCLE SPASMS (Reported) NO GIVEN IN THE HOSPITAL Fluticasone-Salmeterol (Advair 100-50 Diskus) 100 MCG-50 MCG/DOSE BLST.W.DEV 1 PUF INH BID COPD (Reported) NOT GIVEN IN THE HOSPITAL Furosemide 40 MG TABLET 1 TAB PO BID EDEMA (Reported) Gabapentin (Neurontin) 800 MG TABLET 1 TAB PO 4X PER DAY NEUROPATHY (Reported ) Losartan Potassium (Cozaar) 50 MG TABLET 1 TAB PO DAILY BP (Reported) [METOLAZONE] EDEMA (Reported) Oxycodone HCl 30 MG TABLET 1 TAB PO TIDPRN PAIN (Reported) Oxycodone HCl (Oxycontin) 40 MG TAB.ER.12H 1 TAB PO BID PAIN (Reported) Prednisone 10 MG TABLET 1 TAB PO DAILY LUNGS (Reported) Past History Travel History Traveled to [place] past 21 day No Medical History Neurological: peripheral neuropathy (critical illness neuropathy) EENT: NONE Cardiovascular: CHF, hypertension, hyperlipidemia, right-sided heart failure Respiratory: COPD, 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), ARDS and prolonged mechanical ventilation Gastrointestinal: hx OB+ stool Hepatic: NONE Renal: chronic kidney disease Musculoskeletal: OSTEOPENIA 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 Cerebral hemorrhage MOTHER ([employer]). Age 74. BROTHER, Age 49. BROTHER ([employer]). MGF, , Age 80; Cause: Gastric carcinoma. Relation not specified for: gastric cancer Psychosocial History Who Do You Live With? spouse, child Services at Home: Oxygen Primary Language: Kittitian Living Will? yes Power of Artist Consultant/HCP? no Functional Ability ADLs Independent: dressing, eating, toileting, bathing. Ambulation: cane IADLs Independent: shopping, housework, finances, food prep, telephone, transportation , medication admin. Review of Systems Review of Systems Constitutional: Reports: see HPI. Exam & Diagnostic Data Last 24 Hrs of Vital Signs/I&O Vital Signs Date Time Temp Pulse Resp B/P B/P Pulse O2 O2 Flow FiO2 Mean Ox Delivery Rate 12/08 1659 97.2 98 30 100/59 95 Ventilator 55% 12/08 1648 98 30 88/54 95 Ventilator 55% 12/08 1622 102 30 79/44 98 Ventilator 55% 12/08 1612 97.0 103 24 69/39 12/08 1612 69/39 12/08 1545 98 Ventilator 55% 12/08 1530 109 32 103/54 99 Ventilator 55% 12/08 1515 96.8 114 24 128/54 100 Ventilator 55% Intake & Output 12/08 1600 12/08 0800 12/08 0000 Intake Total Output Total Balance Patient 180 lb Weight Weight Estimated Measurement Method Physical Exam General Appearance intubated Skin dry skin on bilateral lower extremities Skin Temp/Moisture Exam: Cool/Dry Sepsis Skin Exam (color): Mottled, Pale HEENT Atraumatic Cardiovascular Regular Rate, Normal S1, Normal S2 Lungs b/l ronchii and rales Abdomen Normal Bowel Sounds, Soft, No Tenderness Extremities No Clubbing Sepsis Peripheral Pulse Location: Dorsalis Pedis Sepsis Peripheral Pulse Exam: Weak Sepsis Cap Refill Exam: >2 sec Last 24 Hrs of Labs/Alonso: Laboratory Tests 12/08/16 1550: pH 7.15 *L, pCO2 47 H, pO2 90, HCO3 16 L, ABG O2 Sat (Measured) 91.0 L, P-50 (Temp Corrected) N, Carboxyhemoglobin 4.0, O2 Concentration % 55%, Temperature 97.0, Respiration Rate 24, O2 Delivery Method ESPRIT VENT, Vent Mode AC, Expiratory Pressure 5, Tidal Volume 500, Phlebotomy Draw Site RIGHT RADIAL 12/08/16 1524: Anion Gap 7, Estimated GFR 40 L, BUN/Creatinine Ratio 8.9, Glucose 148 H, Lactic Acid 4.8 H, Calcium 6.4 L, Total Bilirubin < 0.1 L, AST 41, ALT 29, Alkaline Phosphatase 163 H, Troponin I 0.04, Vrz-T-Evujupellkv Pept 6150 H, Total Protein 4.2 L, Albumin 1.5 L, Globulin 2.7, Albumin/Globulin Ratio 0.6 L, D-Dimer 3199 H, CBC w Diff MAN DIFF ORDERED, RBC 3.15 L, MCV 81.4, MCH 25.9 L, RDW 17.8 H, MPV 6.0 L, Gran % 88.2 H, Lymphocytes % 7.0 L, Monocytes % 2.4, Eosinophils % 2.3, Basophils % 0.1, Absolute Granulocytes 17.4 H, Segmented Neutrophils 60, Band Neutrophils 25 H, Absolute Lymphocytes 1.4, Lymphocytes 7 L, Monocytes 5, Absolute Monocytes 0.5, Eosinophils 2, Absolute Eosinophils 0.5, Absolute Basophils 0, Metamyelocytes 1, Platelet Estimate VERIFIED BY SMEAR, Normocytic RBCs VERIFIED, Normochromic RBCs VERIFIED, PUBS MCHC 31.8 L, Serum Alcohol < 10.0 12/08/16 1510: Urine Opiates Screen 919.00, Methadone Screen 82, Barbiturate Screen < 60, Ur Phencyclidine Scrn < 6.00, Amphetamines Screen 107, U Benzodiazepines Scrn < 85, Urine Cocaine Screen < 50, Urine Cannabis Screen < 5.00 Microbiology 12/08 1616 BLOOD: Blood Culture - RECD 12/08 1600 LOWER RESP: Respiratory Culture - RES 12/08 1600 LOWER RESP: Gram Stain - RES 12/08 1524 BLOOD: Blood Culture - RECD 12/08 1510 URINE ROUT: Urine Culture - RECD Diagnostic Data CXR Results PATIENT: TORSTEN CHAUDHARI PRESENT AGE: 51 PATIENT ACCOUNT NO: [id number] : 67 LOCATION: [facility] ORDERING PHYSICIAN: LI FOX DO SERVICE DATE: 12/08/16 EXAM TYPE: RAD - XRY-PORTABLE CHEST XRAY EXAMINATION: XR PORTABLE CHEST CLINICAL INFORMATION: Altered mental status COMPARISON: Multiple prior studies. Most recent chest x-ray 10/06/2016 TECHNIQUE: Portable frontal view of the chest was obtained. 3:15 PM FINDINGS: Patient rotated to left. There is no endotracheal tube catheter present. Catheter tip is approximately 5 cm above luis enrique in good position. Nasogastric tube passes down into the stomach. There is chronic increased interstitial lung markings. Patient has known interstitial lung disease. Increased lung markings have diminished since the exam of 10/06/2016 and appears similar to baseline chest x-ray of 08/19/2016. No pleural effusion. No pneumothorax. Subchondral sclerotic changes of the right humeral head similar prior study. Healed right lateral eighth rib fracture. IMPRESSION: 1. Endotracheal tube catheter in good position 5 cm above luis enrique. 2. Nasogastric tube in stomach. 3. Chronic increased interstitial lung markings consistent with interstitial lung disease. No acute abnormality the chest. DICTATED BY: MARK SANDERS MD DATE/TIME DICTATED:12/08/161527 LEARNING TECHNOLOGIST:LAURA DATE/TIME TRANSCRIBED:12/08/161527 CONFIDENTIAL, DO NOT COPY WITHOUT APPROPRIATE AUTHORIZATION. <Electronically signed in Other Vendor System> SIGNED BY: MARK SANDERS MD 12/08/16 153 Other Results PATIENT: TORSTEN CHAUDHARI PRESENT AGE: 51 PATIENT ACCOUNT NO: [id number] : 67 LOCATION: [facility] ORDERING PHYSICIAN: LI FOX DO SERVICE DATE: 12/08/16 EXAM TYPE: CAT - CT HEAD WO IV CONTRAST EXAMINATION: CT HEAD WITHOUT CONTRAST CLINICAL INFORMATION: Altered mental status. Rule out CVA. COMPARISON: 10/06/2016. TECHNIQUE: Contiguous axial imaging was performed from the skull base to vertex without intravenous contrast. DLP: 689 mGy-cm. FINDINGS: There is no evidence of acute intracranial hemorrhage or territorial infarction. No abnormal mass effect or midline shift is seen. Ham to white matter differentiation is well preserved. No extra-axial fluid collections are identified. No hydrocephalus. No significant volume loss. There is no abnormal attenuation within the brain parenchyma. The osseous structures and soft tissues are normal. Mild opacification of the ethmoid air cells and maxillary sinuses. The mastoid air cells are well aerated. A nasogastric tube is partially visualized. IMPRESSION: No acute intracranial pathology. DICTATED BY: RIDGE LYONS MD DATE/TIME DICTATED:12/08/161652 LEARNING TECHNOLOGIST:LAURA DATE/TIME TRANSCRIBED:12/08/161652 CONFIDENTIAL, DO NOT COPY WITHOUT APPROPRIATE AUTHORIZATION. <Electronically signed in Other Vendor System> SIGNED BY: RIDGE LYONS MD 12/08 074 Assessment/Plan Assessment: Assessment- 1. Septic shock likely secondary to aspiration pneumonia 2. Leukocytosis with bandemia shift likely secondary to aspiration pneumonia 3. Status post cardiac arrest and CPR in the emergency room 4. Anemia 5. Non anion gap lactic acidosis, secondary to septic shock 6. Hyponatremia 7. Hypokalemia 8. DEE 9. Protein calorie malnutrition 10. Positive urine toxicology screen 11. Hypotension 2/2 septic shock, requiring vasopressors 12. Recently diagnosed esophageal cancer 13. History of interstitial lung disease and ARDS secondary to chemical pneumonitis 14. History of COPD, with 2 L home oxygen dependence 15. Known diastolic heart failure 16. Known history of hypertension Plan- * Admit to the ICU * Vitals per protocol * Panculture * IV vancomycin and ceftazadime after cultures * Blood pressure support through vasopressors to maintain a map of greater than 65 * Maintain CVP greater than 12 * IV fluid resuscitation * Initial ABG noted, then settings adjusted, repeat ABG in 1 hour * Recheck lactic acid * Add on thyroid studies, prolactin, magnesium, phosphorous * Trend troponin and EKG * Check echocardiogram * Cardiology consultation with Dr. Willingham * Will notify Dr. Lopes of patient's admission * Check urinalysis * Intake and output * TRC evaluation, nebulizers, IV Solu-Medrol every 12 * Accu-Cheks * GI prophylaxis * Guaiac all stools * Transfuse 1 unit PRBC, post transfusion CBC check * IV propofol for sedation if needed, maintain SAS around 3 * Soft bilateral upper wrist restraints * OG tube placement * Smith catheter placement * Replete potassium, maintain above 4 * Check labs every 6 hours * Therapeutic hypothermia was not pursued secondary to the fact that he had no ventricular ectopy and was actively vomiting * Nothing by mouth for now * Recheck chest x-ray, ABG with morning labs * DVT prophylaxis with subcutaneous heparin * Full code As Ranked By This Provider Problem List: 1. Proteinuria 2. ILD (interstitial lung disease) 3. Esophageal polyp 4. Abnormal CT of the abdomen 5. Occult blood positive stool 6. Shock 7. Pneumonia 8. Aspiration pneumonia Core Measures/Miscellaneous Acute Coronary Syndrome ACS Diagnosis: No Cerebrovascular Accident CVA/TIA Diagnosis: No Congestive Heart Failure CHF Diagnosis: No Venous Thromboembolism VTE Risk Factors: Age > 40 No [facility] VTE prophylaxis d/t: No contraindications No VTE Pharm Prophylaxis d/t: No contraindications VTE Diagnosis: No VTE Type: NONE VTE Confirmed by (Test): NONE Severe Sepsis Severe Sepsis Present: No Septic Shock Septic Shock Present: Yes BC x2: Yes Lactic Acid: Yes IV ABX Broad Spectrum: Yes Focused Exam Completed: Yes NS/LR 30ml/kg w/in 3hrs: Yes IV Vasopressors started: Yes Miscellaneous Documentation Attending Case Discussed With: Fabio MEZA MD Primary Care Physician: YULI FRAZIER MD A Patient sees these Specialists dr. jorge a solano Level of Patient Care: Critical Care (CRI) Resident Review Statement Resident Statement: examined this patient, discussed with planner intern Fabio MEZA MD 12/08/16 1731: Attending MD Review Statement Attending Statement Attending MD Statement: examined this patient, discuss w/resident/PA/[employer], agreed w/resident/PA/[employer], discussed with family, reviewed EMR data (avail), discussed with nursing, reviewed images, amended to note Attending Assessment/Plan: I have personally seen and examined the patient, and agree with the above assessment and plan. Briefly, the patient is a 51-year-old male with a complicated past medical history as detailed above. The patient was in his usual state of health yesterday and earlier today. He was found unresponsive on his couch and was drooling. As per his sister, the patient had no change in mental status. It is unclear how long the patient was unresponsive for. Narcan was given in the field with a mild improvement in his respiratory status. The patient underwent Ambu bag ventilation by EMS for respiratory arrest. The patient also received Narcan in the emergency department without significant improvement. The patient became bradycardic and CPR / ACLS was initiated. He received 2 rounds of epinephrine and was intubated. The patient was noted to have significant thick yellow secretions coming from his endotracheal tube. Postintubation, the patient has been hypotensive and is requiring Levophed along with IV fluid boluses. The patient had a CT scan of the head which showed no evidence of cerebral edema. CT scan of the chest demonstrated possible pneumonia. The patient has also been vomiting around his endotracheal tube. His ABG shows life-threatening acidosis. The ventilator was adjusted and a repeat ABG will be done in 1 hour. The patient will be pancultured and started on empiric antibiotics. We will continue to monitor his labs throughout the night. We will replete any electrolytes as necessary. Therapeutic hypothermia was considered, however the patient did not have any evidence of ventricular ectopy. He also has had some nonpurposeful but spontaneous movements post arrest. The above tests will be ordered and followed up closely. I discussed the potential for poor prognosis with the patient's sister who will alert the rest of her family. For now, the patient remains a full code.
--- NOTE | 2016-12-08 17:10 | CT SCAN REPORT ---
EXAMINATION: CT CHEST WITHOUT CONTRAST CLINICAL INFORMATION: Shortness of breath. Intubated. COMPARISON: Radiograph from earlier today. Chest CT 12/22/2015. TECHNIQUE: Multidetector volumetric CT imaging of the chest was done. Axial MIP volume rendering provided. Sagittal and coronal reformatted images were obtained. DLP: 369 mGy-cm FINDINGS: LUNGS: Endotracheal tube is in place, terminating approximately 4 cm above the luis enrique. There are diffuse bilateral airspace opacities. Dense focal consolidation in the left lower lobe with air bronchograms. Additional patchy consolidative opacity is seen throughout the remainder of the lungs. Groundglass opacities are also present surrounding the areas of consolidation. Mild centrilobular emphysema in the upper lobes is not as well-seen as on prior, likely obscured by the other lung process. No definite pleural effusion. No pneumothorax. MEDIASTINUM: The heart is normal in size. There is mediastinal and hilar lymphadenopathy. This is increased from the prior chest CT. For instance, there is a subcarinal lymph node measuring 4.2 x 3.1 cm on series 2 image 29. This previously measured 3.1 x 2.4 cm. There is a pretracheal node which measures 2.6 x 2.4 cm on series 2 image 20. This compares to 2.5 x 1.9 cm on the prior. Multiple additional increased lymph nodes are seen throughout. There may also be hilar/peribronchial lymphadenopathy which is not as well-defined given the lack of contrast. Redemonstration of lymph nodes along the course of the esophagus as seen on recent prior abdominal CT. AXILLA: No lymphadenopathy. UPPER ABDOMEN: Enteric tube terminates in the stomach. The visualized portion of the upper abdomen is otherwise unremarkable. OSSEOUS STRUCTURES: No acute or suspicious osseous abnormality. Mild degenerative changes in the spine. IMPRESSION: 1. Multifocal airspace opacities are increased from prior CT, with the most dense consolidation in the left lower lobe with prominent air bronchograms. This is most suspicious for multifocal pneumonia, although alveolar edema/ARDS is also possible. 2. Increased mediastinal lymphadenopathy favors the diagnosis of pneumonia. Likely also hilar/peribronchial lymphadenopathy which is not as well evaluated due to lack of IV contrast. Continued follow-up is recommended.
--- NOTE | 2016-12-08 17:44 | Admission Certification ---
Admission Certification Certification Statement - As attending physician, I certify that at the time of - admission, based on clinical presentation, severity of - symptoms, need for further diagnostic testing and - therapeutic interventions, and risk of adverse outcomes - without in-hospital treatment, in my clinical assessment, - this patient requires an acute hospital stay for a minimum - of two nights or longer. I have also considered psychsocial - factors such as support system, advanced age, financial - issues, cognitive issues, and failed out-patient treatments, - past re-admission history, safety of patient, and lack of - compliance as applicable. Specific rationale supporting this admission is: The patient is s/p cardiac arrest and needs ICU care. He is on mechanical ventilation and on pressor support.
[2016-12-08 20:36] LABS: ABSOLUTE BASOPHIL COUNT 0 /CUMM (0.0-0.2); ABSOLUTE EOSINOPHIL COUNT 0.1 /CUMM (0.0-0.7); ABSOLUTE GRANULOCYTE CT 11.1 /CUMM (1.4-6.5); ABSOLUTE LYMPH COUNT 0.7 /CUMM (1.2-3.4); ABSOLUTE MONOCYTE COUNT 0.7 /CUMM (0.10-0.60); BASOPHIL % 0.2 % (0.0-2.0); HEMATOCRIT 25.4 % (42-52); MEAN CORPUSCULAR HGB 25.8 PG (27.0-31.0); MEAN CORPUSCULAR VOLUME 80.6 FL (80.0-94.0); MEAN PLATELET VOLUME 5.8 FL (7.4-10.4); PLATELET COUNT 298 /CUMM (130-400); RBC DISTRIBUTION WIDTH 18.2 % (11.5-14.5); RED BLOOD CELL CT 3.15 /CUMM (4.70-6.10); WHITE BLOOD CELL COUNT 12.6 /CUMM (4.8-10.8)
[2016-12-08 20:37] LABS: GRANULOCYTE % 88.2 % (42.2-75.2)
[2016-12-08 20:53] LABS: PT 12.2 SEC (9.4-12.5)
[2016-12-08 23:00] VITALS: BP 100/68
[2016-12-09 05:29] LABS: ABSOLUTE BASOPHIL COUNT 0 /CUMM (0.0-0.2); ABSOLUTE EOSINOPHIL COUNT 0 /CUMM (0.0-0.7); ABSOLUTE GRANULOCYTE CT 24.6 /CUMM (1.4-6.5); ABSOLUTE LYMPH COUNT 0.4 /CUMM (1.2-3.4); ABSOLUTE MONOCYTE COUNT 0.7 /CUMM (0.10-0.60); BASOPHIL % 0 % (0.0-2.0); EOSINOPHIL % 0 % (0-5); GRANULOCYTE % 95.4 % (42.2-75.2); HEMATOCRIT 29.3 % (42-52); MEAN CORPUSCULAR HGB 26.3 PG (27.0-31.0); MEAN CORPUSCULAR HGB CONC 32.3 G/DL (33.0-37.0); MEAN CORPUSCULAR VOLUME 81.6 FL (80.0-94.0); MEAN PLATELET VOLUME 6.3 FL (7.4-10.4); PLATELET COUNT 333 /CUMM (130-400); RBC DISTRIBUTION WIDTH 17.6 % (11.5-14.5); RED BLOOD CELL CT 3.59 /CUMM (4.70-6.10)
[2016-12-09 05:35] LABS: WHITE BLOOD CELL COUNT 25.8 /CUMM (4.8-10.8)
--- NOTE | 2016-12-09 06:57 | Cons- Oncology ---
General Information and HPI Consulting Request Date of Consult: 12/09/16 Requested By: Fabio MEZA MD History of Present Illness: 51-year-old man with recently diagnosed T1 N2 esophageal cancer anticipating combined modality therapy now admitted after being found unresponsive at home and subsequently suffered cardiopulmonary arrest. Patient is intubated and unresponsive. Patient initially presented to my office with iron deficiency anemia. Subsequent workup revealed esophageal cancer. Allergies/Medications Allergies: Coded Allergies: Iodinated Contrast Media - Oral and (IODINATED CONTRAST MEDIA - IV DYE) (RED RASH TOLERATES WITH BENADRYL 01/12/16) Home Med List: Albuterol Sulfate (Proair Hfa) 90 MCG HFA.AER.AD 2 PUF INH Q4-6 PRN PRN BREATHING PROBLEMS (Reported) Albuterol Sulfate 2.5 MG/3 ML (0.083 %) VIAL.NEB 1 Vial INH/[place] PRN COPD ( Reported) Alendronate Sodium (Fosamax) 70 MG TABLET 1 TAB PO QW OSTEOPOROSIS (Reported) in the morning, at least 30 minutes before the first food, beverage, or medication of the day Amitriptyline HCl 150 MG TABLET 1 TAB PO QPM SLEEP (Reported) Baclofen 10 MG TABLET 1 TAB PO TID MUSCLE SPASMS (Reported) NO GIVEN IN THE HOSPITAL Fluticasone-Salmeterol (Advair 100-50 Diskus) 100 MCG-50 MCG/DOSE BLST.W.DEV 1 PUF INH BID COPD (Reported) NOT GIVEN IN THE HOSPITAL Furosemide 40 MG TABLET 1 TAB PO BID EDEMA (Reported) Gabapentin (Neurontin) 800 MG TABLET 1 TAB PO 4X PER DAY NEUROPATHY (Reported ) Losartan Potassium (Cozaar) 50 MG TABLET 1 TAB PO DAILY BP (Reported) [METOLAZONE] EDEMA (Reported) Oxycodone HCl 30 MG TABLET 1 TAB PO TIDPRN PAIN (Reported) Oxycodone HCl (Oxycontin) 40 MG TAB.ER.12H 1 TAB PO BID PAIN (Reported) Prednisone 10 MG TABLET 1 TAB PO DAILY LUNGS (Reported) Current Medications: Current Medications Sig/Silvana Start time Last Medication Dose Route Stop Time Status Admin Ampicillin Sodium/ 0 .STK-MED ONE 12/08 1623 DC Sulbactam Sodium .ROUTE Ampicillin Sodium/ 3,000 MG ONCE ONE 12/08 1615 DC 12/08 Sulbactam Sodium IV 12/08 1644 1623 Sodium Chloride 100 ML Calcium Gluconate 1 GM ONCE ONE 12/08 2115 DC 12/08 Sodium Chloride 100 ML IV 12/08 2214 2330 Ceftazidime 2,000 MG Q12 12/08 2200 AC 12/08 Dextrose/Water 50 ML IV 2249 Epinephrine 1 MG ONCE ONE 12/08 1630 DC 12/08 IV 12/08 1631 1503 Epinephrine 1 MG ONCE ONE 12/08 1630 DC 12/08 IV 12/08 1631 1505 Heparin Sodium 0 .STK-MED ONE 12/08 1818 DC (Porcine) .ROUTE Heparin Sodium 5,000 UNIT Q8 12/08 1726 AC 12/09 (Porcine) SC 0508 Magnesium Sulfate 1 GM Q1H 12/08 211 DC 12/09 Dextrose/Water 100 ML IV 12/08 2314 0106 Methylprednisolone 40 MG Q12 12/08 2200 AC 12/08 IV 2145 Naloxone HCl 2 MG ONCE ONE 12/08 1630 DC 12/08 IV 12/08 1631 1503 Naloxone HCl 2 MG ONCE ONE 12/08 1630 ID 12/08 IV 12/08 1631 1505 Naloxone HCl 0 .STK-MED ONE 12/08 1500 DC .ROUTE Naloxone HCl 0 .STK-MED ONE 12/08 1458 DC .ROUTE Non-Formulary 0 SEE ADMIN CRITERIA 12/08 174 CAN Medication ANY Norepinephrine 4 MG Q9H 12/09 0200 12/09 Sodium Chloride 250 ML IV 0215 Norepinephrine 4 MG Q24H 12/08 2215 DC Sodium Chloride 250 ML IV Norepinephrine 0 .STK-MED ONE 12/08 1601 DC IV Norepinephrine 4 MG ONCE ONE 12/08 1600 DC 12/08 Sodium Chloride 250 ML IV 12/08 1601 1612 Pantoprazole Sodium 40 MG DAILY 12/09 1000 DC IV Pantoprazole Sodium 40 MG DAILY 12/08 1845 AC 12/08 IV 2143 Potassium Chloride 20 MEQ Q1H 12/08 211 DC 12/08 IV 12/08 221 2251 Potassium Chloride 20 MEQ Q1H 12/08 1730 DC 12/08 IV 12/08 183 2009 Propofol 1,000 MG Q24H 12/09 0115 AC N/A 100 ML IV Propofol 1,000 MG CONTINOUS INFUSION 12/08 1745 DC 12/08 N/A 100 ML IV 1759 Sodium Chloride 1,000 ML BOLUS ONE 12/08 1745 DC 12/08 IV 12/08 1844 1810 Sodium Chloride 1,000 ML BOLUS ONE 12/08 1700 DC 12/08 IV 12/08 1759 1650 Sodium Chloride 1,000 ML BOLUS ONE 12/08 1615 DC 05 IV 12/08 1714 1650 Sodium Chloride 1,000 ML BOLUS ONE 12/08 1615 DC 05/ IV 12/08 1714 1626 Sodium Chloride 1,000 ML BOLUS ONE 12/08 1615 DC 05 IV 12/08 1714 1626 Sodium Chloride 1,000 ML BOLUS ONE 12/08 1500 DC 05 IV 12/08 1559 1450 Vancomycin HCl 1,000 MG 0500,1700 12/09 0500 AC 12/09 Sodium Chloride 250 ML IV 0504 Vancomycin HCl 0 .STK-MED ONE 12/08 1657 DC .ROUTE Vancomycin HCl 1,000 MG ONCE ONE 12/08 1630 DC 12/08 Sodium Chloride 250 ML IV 12/08 1729 1701 Review of Systems Review of Systems: Unobtainable Past History Travel History Traveled to [place] past 21 day No Medical History Blood Transfusion Hx: Yes Neurological: peripheral neuropathy (critical illness neuropathy) EENT: NONE Cardiovascular: CHF, hypertension, hyperlipidemia, right-sided heart failure Respiratory: COPD, 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), ARDS and prolonged mechanical ventilation Gastrointestinal: hx OB+ stool Hepatic: NONE Renal: chronic kidney disease Musculoskeletal: OSTEOPENIA 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 Psychiatric: depression Endocrine: diabetes Blood Disorders: NONE (multifactorial), anemia Cancer(s): NONE 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 Cerebral hemorrhage MOTHER (A&W). Age 74. BROTHER, Age 49. BROTHER (A&W). MGF, , Age 80; Cause: Gastric carcinoma. Relation not specified for: gastric cancer Psychosocial History Where Do You Live? Home Who Do You Live With? spouse, child Services at Home: Oxygen Primary Language: Barbadian Smoking Status: Unknown If Ever Smoked Living Will? yes Power of System Manager/HCP? no Functional Ability ADLs Independent: dressing, eating, toileting, bathing. Ambulation: cane IADLs Independent: shopping, housework, finances, food prep, telephone, transportation , medication admin. ECHO Results (as available) Date of last Echo 12/08/16 EF% 60 Exam & Diagnostic Data Vital Signs and I&O Vital Signs Date Time Temp Pulse Resp B/P B/P Pulse O2 O2 Flow FiO2 Mean Ox Delivery Rate 12/09 0545 40 12/09 0400 97 Ventilator 40% 12/09 0348 40 12/09 0215 86 30 129/76 12/09 0107 40 12/09 0000 99 Ventilator 40% 12/08 2300 97.9 86 30 100/68 99 Ventilator 30% 12/08 2245 40 12/08 2000 98 Ventilator 50% 12/08 1930 50 12/08 1900 98 Ventilator 50% 12/08 1852 90 30 110/67 100 Ventilator 55% 12/08 1824 91 30 105/63 100 Ventilator 55% 12/08 1802 100 Ventilator 55% 12/08 1801 97.2 92 30 101/57 100 Ventilator 55% 12/08 1743 94 30 96/53 99 Ventilator 55% 12/08 1725 97.2 98 30 104/59 97 Ventilator 55% 12/08 1659 97.2 98 30 100/59 95 Ventilator 55% 12/08 1648 98 30 88/54 95 Ventilator 55% 12/08 1622 102 30 79/44 98 Ventilator 55% 12/08 1612 97.0 103 24 69/39 0524 1612 69/39 12/08 1545 98 Ventilator 55% 12/08 1530 109 32 103/54 99 Ventilator 55% 12/08 1515 96.8 114 24 128/54 100 Ventilator 55% Intake & Output 12/09 0800 12/09 0000 12/08 1600 Intake Total 680 Output Total 930 Balance -250 Intake, Blood 126 Product Intake, IV 554 Number 0 Bowel Movements Output, Urine 930 Patient 184 lb 180 lb Weight Weight Bed scale Estimated Measurement Method Gen.: in NAD, intubated ENT: Sclera anicteric Chest: Decreased breath sounds Cor: RRR, no extra sounds Abdomen: Soft, bowel sounds present, no tenderness, no rebound Extremities: Without clubbing, cyanosis, or asymmetric edema Neurology: Unresponsive Last 48 Hours of Lab Results: Laboratory Tests 12/09 12/09 0455 0446 Blood Gas pH (7.35 - 7.45 PH) 7.29 *L pCO2 (35 - 45 TORR) 34 L pO2 (80 - 100 TORR) 101 H HCO3 (21 - 28 MEQ/L) 16 L ABG O2 Sat (Measured) (>96.0 %) 97.0 P-50 (Temp Corrected) Y Carboxyhemoglobin (1.5 - 5.0 %) 0.9 L O2 Concentration % 40% Temperature (97.0 - 100.0 FARH) 97.2 Respiration Rate (BPM) 30 O2 Delivery Method ESPRIT Vent Mode AC Expiratory Pressure (CMH2O/P) 5 Tidal Volume (CC) 500 Chemistry Sodium (137 - 145 mmol/L) 135 L Potassium (3.5 - 5.1 mmol/L) 4.4 Chloride (98 - 107 mmol/L) 112 H Carbon Dioxide (22 - 30 mmol/L) 16 L Anion Gap (5 - 16) 7 BUN (9 - 20 mg/dL) 16 Creatinine (0.7 - 1.2 mg/dL) 1.5 H Estimated GFR (>60 ml/min) 50 L Glucose (65 - 99 mg/dL) 81 Calcium (8.4 - 10.2 mg/dL) 6.4 L Phosphorus (2.5 - 4.5 mg/dL) 5.9 H Magnesium (1.6 - 2.3 mg/dL) 2.0 Total Bilirubin (0.2 - 1.3 mg/dL) 0.3 AST (17 - 59 U/L) 61 H ALT (21 - 72 U/L) 42 Albumin (3.5 - 5.0 g/dL) 1.6 L Hematology CBC w Diff MAN DIFF ORDERED WBC (4.8 - 10.8 /CUMM) 25.8 H RBC (4.70 - 6.10 /CUMM) 3.59 L Hgb (14.0 - 18.0 G/DL) 9.4 L Hct (42 - 52 %) 29.3 L MCV (80.0 - 94.0 FL) 81.6 MCH (27.0 - 31.0 PG) 26.3 L RDW (11.5 - 14.5 %) 17.6 H Plt Count (130 - 400 /CUMM) 333 MPV (7.4 - 10.4 FL) 6.3 L Gran % (42.2 - 75.2 %) 95.4 H Lymphocytes % (20.5 - 51.1 %) 1.7 L Monocytes % (1.7 - 9.3 %) 2.9 Eosinophils % (0 - 5 %) 0 Basophils % (0.0 - 2.0 %) 0 L Absolute Granulocytes (1.4 - 6.5 /CUMM) 24.6 H Segmented Neutrophils (42.2 - 75.2 %) 82 H Band Neutrophils (0.0 - 5.0 %) 16 H Absolute Lymphocytes (1.2 - 3.4 /CUMM) 0.4 L Lymphocytes (20.5 - 51.1 %) 1 L Monocytes (1.7 - 9.3 %) 1 L Absolute Monocytes (0.10 - 0.60 /CUMM) 0.7 H Absolute Eosinophils (0.0 - 0.7 /CUMM) 0 Absolute Basophils (0.0 - 0.2 /CUMM) 0 Platelet Estimate (ADEQUATE) ADEQUATE Polychromasia 1+ Hypochromic-Microcytic 1+ Poikilocytosis 1+ Ovalocytes 1+ PUBS MCHC (33.0 - 37.0 G/DL) 32.3 L Miscellaneous Phlebotomy Draw Site RIGHT RADIAL Other Body Source Fld Total RBCs Counted (%) 100 12/090 2007 Blood Gas pH (7.35 - 7.45 PH) 7.31 L pCO2 (35 - 45 TORR) 31 L pO2 (80 - 100 TORR) 70 L HCO3 (21 - 28 MEQ/L) 15 L ABG O2 Sat (Measured) (>96.0 %) 94.0 L P-50 (Temp Corrected) Y Carboxyhemoglobin (1.5 - 5.0 %) 1.5 O2 Concentration % 40% Temperature (97.0 - 100.0 FARH) 96.0 L Respiration Rate (BPM) 30 O2 Delivery Method ESPRIT Vent Mode AC Expiratory Pressure (CMH2O/P) 5 Tidal Volume (CC) 500 Chemistry Sodium (137 - 145 mmol/L) 133 L 131 L Potassium (3.5 - 5.1 mmol/L) 4.6 3.7 Chloride (98 - 107 mmol/L) 112 H 110 H Carbon Dioxide (22 - 30 mmol/L) 16 L 17 L Anion Gap (5 - 16) 6 5 BUN (9 - 20 mg/dL) 17 15 Creatinine (0.7 - 1.2 mg/dL) 1.6 H 1.7 H Estimated GFR (>60 ml/min) 46 L 43 L Glucose (65 - 99 mg/dL) 88 81 Calcium (8.4 - 10.2 mg/dL) 6.3 L 5.7 *L Phosphorus (2.5 - 4.5 mg/dL) 5.7 H 5.4 H Magnesium (1.6 - 2.3 mg/dL) 1.7 1.6 Total Bilirubin (0.2 - 1.3 mg/dL) 0.5 < 0.1 L AST (17 - 59 U/L) 60 H 56 ALT (21 - 72 U/L) 33 43 Troponin I (<0.11 ng/ml) 0.06 0.06 Albumin (3.5 - 5.0 g/dL) 1.5 L 1.5 L Coagulation PT (9.4 - 12.5 SEC) 12.2 INR (0.90 - 1.17) 1.16 Hematology CBC w Diff NO MAN DIFF REQ WBC (4.8 - 10.8 /CUMM) 12.6 H RBC (4.70 - 6.10 /CUMM) 3.15 L Hgb (14.0 - 18.0 G/DL) 8.1 L Hct (42 - 52 %) 25.4 L MCV (80.0 - 94.0 FL) 80.6 MCH (27.0 - 31.0 PG) 25.8 L RDW (11.5 - 14.5 %) 18.2 H Plt Count (130 - 400 /CUMM) 298 MPV (7.4 - 10.4 FL) 5.8 L Gran % (42.2 - 75.2 %) 88.2 H Lymphocytes % (20.5 - 51.1 %) 5.2 L Monocytes % (1.7 - 9.3 %) 5.4 Eosinophils % (0 - 5 %) 1.0 Basophils % (0.0 - 2.0 %) 0.2 Absolute Granulocytes (1.4 - 6.5 /CUMM) 11.1 H Absolute Lymphocytes (1.2 - 3.4 /CUMM) 0.7 L Absolute Monocytes (0.10 - 0.60 /CUMM) 0.7 H Absolute Eosinophils (0.0 - 0.7 /CUMM) 0.1 Absolute Basophils (0.0 - 0.2 /CUMM) 0 PUBS MCHC (33.0 - 37.0 G/DL) 32.0 L Miscellaneous Phlebotomy Draw Site RIGHT RADIAL 12/08 12/08 12/08 1856 1840 1550 Blood Gas pH (7.35 - 7.45 PH) 7.24 *L 7.15 *L pCO2 (35 - 45 TORR) 37 47 H pO2 (80 - 100 TORR) 92 90 HCO3 (21 - 28 MEQ/L) 16 L 16 L ABG O2 Sat (Measured) (>96.0 %) 94.0 L 91.0 L P-50 (Temp Corrected) N N Carboxyhemoglobin (1.5 - 5.0 %) 2.4 4.0 O2 Concentration % 55% 55% Temperature (97.0 - 100.0 FARH) 97.0 97.0 Respiration Rate (BPM) 30 24 O2 Delivery Method ESPRIT VENT ESPRIT VENT Vent Mode AC AC Expiratory Pressure (CMH2O/P) 5 5 Tidal Volume (CC) 500 500 Chemistry Lactic Acid (0.7 - 2.1 mmol/L) 1.6 Miscellaneous Phlebotomy Draw Site RIGHT RADIAL RIGHT RADIAL 12/08 12/08 1524 1510 Chemistry Sodium (137 - 145 mmol/L) 130 L Potassium (3.5 - 5.1 mmol/L) 3.3 L Chloride (98 - 107 mmol/L) 106 Carbon Dioxide (22 - 30 mmol/L) 17 L Anion Gap (5 - 16) 7 BUN (9 - 20 mg/dL) 16 Creatinine (0.7 - 1.2 mg/dL) 1.8 H Estimated GFR (>60 ml/min) 40 L BUN/Creatinine Ratio (7 - 25 %) 8.9 Glucose (65 - 99 mg/dL) 148 H Lactic Acid (0.7 - 2.1 mmol/L) 4.8 H Calcium (8.4 - 10.2 mg/dL) 6.4 L Phosphorus (2.5 - 4.5 mg/dL) 7.3 H Magnesium (1.6 - 2.3 mg/dL) 2.0 Total Bilirubin (0.2 - 1.3 mg/dL) < 0.1 L AST (17 - 59 U/L) 41 ALT (21 - 72 U/L) 29 Alkaline Phosphatase (< 127 U/L) 163 H Troponin I (<0.11 ng/ml) 0.04 Fwd-[id number] Pept (<125 pg/mL) 6150 H Total Protein (6.3 - 8.2 g/dL) 4.2 L Albumin (3.5 - 5.0 g/dL) 1.5 L Globulin (1.9 - 4.2 gm/dL) 2.7 Albumin/Globulin Ratio (1.1 - 2.2 %) 0.6 L TSH (0.270 - 4.200 uIU/mL) 2.290 Free T4 (0.64 - 1.79 ng/dL) 0.84 Prolactin (3.7 - 17.9 ng/mL) 19.0 H Coagulation D-Dimer (70 - 232 ng/ml) 3199 H Hematology CBC w Diff MAN DIFF ORDERED WBC (4.8 - 10.8 /CUMM) 19.7 H RBC (4.70 - 6.10 /CUMM) 3.15 L Hgb (14.0 - 18.0 G/DL) 8.1 L Hct (42 - 52 %) 25.6 L MCV (80.0 - 94.0 FL) 81.4 MCH (27.0 - 31.0 PG) 25.9 L RDW (11.5 - 14.5 %) 17.8 H Plt Count (130 - 400 /CUMM) 378 MPV (7.4 - 10.4 FL) 6.0 L Gran % (42.2 - 75.2 %) 88.2 H Lymphocytes % (20.5 - 51.1 %) 7.0 L Monocytes % (1.7 - 9.3 %) 2.4 Eosinophils % (0 - 5 %) 2.3 Basophils % (0.0 - 2.0 %) 0.1 Absolute Granulocytes (1.4 - 6.5 /CUMM) 17.4 H Segmented Neutrophils (42.2 - 75.2 %) 60 Band Neutrophils (0.0 - 5.0 %) 25 H Absolute Lymphocytes (1.2 - 3.4 /CUMM) 1.4 Lymphocytes (20.5 - 51.1 %) 7 L Monocytes (1.7 - 9.3 %) 5 Absolute Monocytes (0.10 - 0.60 /CUMM) 0.5 Eosinophils (0 - 5.0 %) 2 Absolute Eosinophils (0.0 - 0.7 /CUMM) 0.5 Absolute Basophils (0.0 - 0.2 /CUMM) 0 Metamyelocytes (0.0 - 1.0 %) 1 Platelet Estimate (ADEQUATE) VERIFIED BY SMEAR Normocytic RBCs VERIFIED Normochromic RBCs VERIFIED PUBS MCHC (33.0 - 37.0 G/DL) 31.8 L Toxicology Urine Opiates Screen (>2000 NG/ML) 919.00 Methadone Screen (>300 NG/ML) 82 Barbiturate Screen (>200 NG/ML) < 60 Ur Phencyclidine Scrn (>25 NG/ML) < 6.00 Amphetamines Screen (>1000 NG/ML) 107 U Benzodiazepines Scrn (>200 NG/ML) < 85 Urine Cocaine Screen (>300 NG/ML) < 50 Urine Cannabis Screen (>50 NG/ML) < 5.00 Serum Alcohol (<10 MG/DL) < 10.0 Imaging/Other Studies: CT [id number] obvious pathology CT chest-diffuse airway disease, mediastinal lymphadenopathy Assessment/Plan Assessment: 1. Unresponsiveness/status post cardiopulmonary arrest-patient is aggressively being treated including antibiotics for presumed aspiration pneumonia. This event would seem likely directly related to esophageal cancer. 2. Esophageal cancer-patient has locally advanced disease but therapy have been intended for cure. Overall, the patient has significant pre-existing comorbidities and his overall outlook now remains grim. Please call if any further issues develop Recommendations: .. Consult Acknowledgment - Thank you for your consult request.
--- NOTE | 2016-12-09 07:18 | Cons- CRCU ---
General Information and HPI Allergies/Medications Allergies: Coded Allergies: Iodinated Contrast Media - Oral and (IODINATED CONTRAST MEDIA - IV DYE) (RED RASH TOLERATES WITH BENADRYL 01/12/16) Home Med List: Albuterol Sulfate (Proair Hfa) 90 MCG HFA.AER.AD 2 PUF INH Q4-6 PRN PRN BREATHING PROBLEMS (Reported) Albuterol Sulfate 2.5 MG/3 ML (0.083 %) VIAL.NEB 1 Vial INH/[place] PRN COPD ( Reported) Alendronate Sodium (Fosamax) 70 MG TABLET 1 TAB PO QW OSTEOPOROSIS (Reported) in the morning, at least 30 minutes before the first food, beverage, or medication of the day Amitriptyline HCl 150 MG TABLET 1 TAB PO QPM SLEEP (Reported) Baclofen 10 MG TABLET 1 TAB PO TID MUSCLE SPASMS (Reported) NO GIVEN IN THE HOSPITAL Fluticasone-Salmeterol (Advair 100-50 Diskus) 100 MCG-50 MCG/DOSE BLST.W.DEV 1 PUF INH BID COPD (Reported) NOT GIVEN IN THE HOSPITAL Furosemide 40 MG TABLET 1 TAB PO BID EDEMA (Reported) Gabapentin (Neurontin) 800 MG TABLET 1 TAB PO 4X PER DAY NEUROPATHY (Reported ) Losartan Potassium (Cozaar) 50 MG TABLET 1 TAB PO DAILY BP (Reported) [METOLAZONE] EDEMA (Reported) Oxycodone HCl 30 MG TABLET 1 TAB PO TIDPRN PAIN (Reported) Oxycodone HCl (Oxycontin) 40 MG TAB.ER.12H 1 TAB PO BID PAIN (Reported) Prednisone 10 MG TABLET 1 TAB PO DAILY LUNGS (Reported) Past History Travel History Traveled to [place] past 21 day No Medical History Blood Transfusion Hx: Yes Neurological: peripheral neuropathy (critical illness neuropathy) EENT: NONE Cardiovascular: CHF, hypertension, hyperlipidemia, right-sided heart failure Respiratory: COPD, 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), ARDS and prolonged mechanical ventilation Gastrointestinal: hx OB+ stool Hepatic: NONE Renal: chronic kidney disease Musculoskeletal: OSTEOPENIA 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 Cerebral hemorrhage MOTHER (A&W). Age 74. BROTHER, Age 49. BROTHER (A&W). MGF, , Age 80; Cause: Gastric carcinoma. Relation not specified for: gastric cancer Psychosocial History Where Do You Live? Home Who Do You Live With? spouse, child Services at Home: Oxygen Primary Language: Citizen Of [place] Smoking Status: Unknown If Ever Smoked Living Will? yes Power of Supervisor Cap [employer] Hat Production/HCP? no Functional Ability ADLs Independent: dressing, eating, toileting, bathing. Ambulation: cane IADLs Independent: shopping, housework, finances, food prep, telephone, transportation , medication admin. ECHO Results (as available) Date of last Echo 12/08/16 EF% 60 Assessment/Plan Consult Acknowledgment - Thank you for your consult request.
[2016-12-09 08:00] VITALS: BP 110/60
--- NOTE | 2016-12-09 08:17 | PN- Resident CRCU ---
Subjective HPI/CRCU Issues: For follow up: #Acute hypoxic respiratory failure secondary to aspiration pneumonia #Septic shock #Status post cardiac arrest and CPR #Anemia of chronic disease #Recently diagnosed esophageal cancer #Acute kidney injury Patient was seen and examined this morning, intubated, sedated, Levophed was switched off overnight, no overnight events reported by the nurse. 24 Hour Events: Temperature 97.8, MAXIMUM TEMPERATURE 97.9 Pulse lowest 83, highest 90, blood pressure lowest 102/59, highest 122/76 AC 500/30/5/40% saturating 95% Intake 1757, output 1580 in the last 12 hours Objective Vital Signs & I&O Last 8 Hrs of Vitals and I&O: Intake & Output 12/09 1600 Intake Total 542 Output Total 450 Balance 92 Intake, IV 442 Intake, Oral 0 Intake, Other 100 Number 0 Bowel Movements Output, Urine 450 Patient 83.518 kg Weight Exam General Appearance: sedated, intubated Head: atraumatic, normal appearance Ears, Nose, Throat: normal pharynx, normal ENT inspection Neck: normal inspection, supple, full range of motion Respiratory: chest non-tender Cardiovascular: regular rate/rhythm Gastrointestinal: normal bowel sounds, soft, non-tender Extremities: normal inspection, normal capillary refill, normal range of motion, Bilateral LE pedal edema +1 Cranial Nerves: Medium size fixed bilateral pupils Current Medications: Current Medications Sig/Silvana Start time Last Medication Dose Route Stop Time Status Admin Albuterol Sulfate 3 ML BID 12/09 1000 AC 12/09 INH 0857 Ampicillin Sodium/ 0 .STK-MED ONE 12/08 1623 DC Sulbactam Sodium .ROUTE Ampicillin Sodium/ 3,000 MG ONCE ONE 12/08 1615 DC 12/08 Sulbactam Sodium IV 12/08 1644 1623 Sodium Chloride 100 ML Calcium Gluconate 1 GM ONCE ONE 12/08 2115 DC 12/08 Sodium Chloride 100 ML IV 12/08 2214 2330 Ceftazidime 2,000 MG Q12 12/08 2200 AC 12/09 Dextrose/Water 50 ML IV 1126 Epinephrine 1 MG ONCE ONE 12/08 1630 DC 12/08 IV 12/08 1631 1503 Epinephrine 1 MG ONCE ONE 12/08 1630 DC 12/08 IV 12/08 1631 1505 Heparin Sodium 0 .STK-MED ONE 12/08 1818 DC (Porcine) .ROUTE Heparin Sodium 5,000 UNIT Q8 12/08 1726 AC 12/09 (Porcine) SC 0508 Magnesium Sulfate 1 GM Q1H 12/08 2115 DC 12/09 Dextrose/Water 100 ML IV 12/08 2314 0106 Methylprednisolone 40 MG Q12 12/08 2200 AC 12/09 IV 1051 Naloxone HCl 2 MG ONCE ONE 12/08 1630 DC 12/08 IV 12/08 1631 1503 Naloxone HCl 2 MG ONCE ONE 12/08 1630 DC 12/08 IV 12/08 1631 1505 Non-Formulary 0 SEE ADMIN CRITERIA 12/08 1745 CAN Medication ANY Norepinephrine 4 MG Q9H 12/09 0200 DC 12/09 Sodium Chloride 250 ML IV 0215 Norepinephrine 4 MG Q24H 12/08 2215 DC Sodium Chloride 250 ML IV Norepinephrine 0 .STK-MED ONE 12/08 1601 DC IV Norepinephrine 4 MG ONCE ONE 12/08 1600 DC 12/08 Sodium Chloride 250 ML IV 12/08 1601 1612 Pantoprazole Sodium 40 MG DAILY 12/09 1000 DC IV Pantoprazole Sodium 40 MG DAILY 12/08 1845 AC 12/09 IV 1051 Potassium Chloride 20 MEQ Q1H 12/08 2115 DC 12/08 IV 12/08 2216 2251 Potassium Chloride 20 MEQ Q1H 12/08 1730 DC 12/08 IV 12/08 1831 2009 Propofol 1,000 MG Q24H 12/09 0115 DC N/A 100 ML IV Propofol 1,000 MG CONTINOUS INFUSION 12/08 1745 DC 12/08 N/A 100 ML IV 1759 Sodium Chloride 1,000 ML Q20H 12/09 1000 AC 12/09 IV 1050 Sodium Chloride 1,000 ML BOLUS ONE 12/08 1745 DC 12/08 IV 12/08 1844 1810 Sodium Chloride 1,000 ML BOLUS ONE 12/08 1700 DC 12/08 IV 12/08 1759 1650 Sodium Chloride 1,000 ML BOLUS ONE 12/08 1615 DC 12/08 IV 12/08 1714 1650 Sodium Chloride 1,000 ML BOLUS ONE 12/08 1615 DC 12/08 IV 12/08 1714 1626 Sodium Chloride 1,000 ML BOLUS ONE 12/08 1615 DC 12/08 IV 12/08 1714 1626 Sodium Chloride 1,000 ML BOLUS ONE 12/08 1500 DC 12/08 IV 12/08 1559 1450 Vancomycin HCl 1,000 MG 0500,1700 12/09 0500 AC 12/09 Sodium Chloride 250 ML IV 0504 Vancomycin HCl 0 .STK-MED ONE 12/08 1657 DC .ROUTE Vancomycin HCl 1,000 MG ONCE ONE 12/08 1630 DC 12/08 Sodium Chloride 250 ML IV 12/08 1729 1701 Impression/Plan Impression/Problem List Impression: Mr. Monge is 51-year-old gentleman with past medical history significant for diastolic CHF, hypertension, COPD with 2 L home oxygen dependence, ILD, history of large with prolonged mechanical ventilation, CKD, neuropathy that presented to the emergency room via ambulance after family found him unresponsive. Patient went into cardiac arrest and bradycardia CPR was administered with 2 rounds of epinephrine, subsequently he had return of rhythm and pulses he was intubated and a right femoral central line was placed, Levothroid drip was started. Patient was admitted to ICU for close monitoring. Problem list: #Acute hypoxic respiratory failure secondary to aspiration pneumonia #Septic shock #Status post cardiac arrest and CPR #Anemia of chronic disease #Recently diagnosed esophageal cancer #Acute kidney injury Cardiology -Levofed was swittched off -Monitor BP -Maintain IVF NS 50 cc/h -Monitor strict I&Os -Cardio consultation was placed, waiting for evaluation -Echo pending ID -Continue ceftriaxone and vancomycin for aspiration pneumonia, recent history of hospitlization in september -Afubrile -Follow up cultures Respiratory -Continue Solu-Medrol IV every 12 -Mechanical ventilation, chest x-ray daily -Ventilation bundle Neurology -Neuro consultation was placed -Follow EEG -CT head did not show acute changes -Will repeat CT head today Metabolic -Repeat labs every 12 and replete electrolytes as needed Alimentary -Nothing by mouth DVT prophylaxis heparin subcutaneous Code full Consultation cardiology, neuro Problem List: 1. Aspiration pneumonia 2. Altered mental status 3. Septic shock Pain Ratin Tomorrow's Labs & Rationales: CBc, ICU bundle, Chest x ray Plan DVT/Prophylaxis: mechanical, pharmacological
--- NOTE | 2016-12-09 08:42 | PN- CRCU ---
Subjective HPI/Critical Care Issues: The patient's blood pressure has significantly improved, noting he is off Levophed. His oxygenation has improved as well, and he is on 40%. He is currently on low-dose propofol. He tries to open his eyes with painful stimuli however he has no purposeful movements. There has been no seizure activity reported. Objective Current Medications: Current Medications Sig/Silvana Start time Last Medication Dose Route Stop Time Status Admin Ampicillin Sodium/ 0 .STK-MED ONE 12/08 1623 DC Sulbactam Sodium .ROUTE Ampicillin Sodium/ 3,000 MG ONCE ONE 12/08 1615 DC 12/08 Sulbactam Sodium IV 12/08 1644 1623 Sodium Chloride 100 ML Calcium Gluconate 1 GM ONCE ONE 12/08 211 DC 12/08 Sodium Chloride 100 ML IV 12/08 2214 2330 Ceftazidime 2,000 MG Q12 12/08 2200 AC 12/08 Dextrose/Water 50 ML IV 2249 Epinephrine 1 MG ONCE ONE 12/08 1630 DC 12/08 IV 12/08 1631 1503 Epinephrine 1 MG ONCE ONE 12/08 1630 DC 12/08 IV 12/08 1631 1505 Heparin Sodium 0 .STK-MED ONE 12/08 1818 DC (Porcine) .ROUTE Heparin Sodium 5,000 UNIT Q8 12/08 1726 AC 12/09 (Porcine) SC 0508 Magnesium Sulfate 1 GM Q1H 12/08 211 DC 12/09 Dextrose/Water 100 ML IV 12/08 2314 0106 Methylprednisolone 40 MG Q12 12/08 2200 AC 12/08 IV 2145 Naloxone HCl 2 MG ONCE ONE 12/08 1630 DC 12/08 IV 12/08 1631 1503 Naloxone HCl 2 MG ONCE ONE 12/08 1630 DC 12/08 IV 12/08 1631 1505 Naloxone HCl 0 .STK-MED ONE 12/08 1500 DC .ROUTE Naloxone HCl 0 .STK-MED ONE 12/08 1458 DC .ROUTE Non-Formulary 0 SEE ADMIN CRITERIA 12/08 1745 CAN Medication ANY Norepinephrine 4 MG Q9H 12/09 0200 AC 12/09 Sodium Chloride 250 ML IV 0215 Norepinephrine 4 MG Q24H 12/08 2215 DC Sodium Chloride 250 ML IV Norepinephrine 0 .STK-MED ONE 12/08 1601 DC IV Norepinephrine 4 MG ONCE ONE 12/08 1600 DC 12/08 Sodium Chloride 250 ML IV 12/08 1601 1612 Pantoprazole Sodium 40 MG DAILY 12/09 1000 DC IV Pantoprazole Sodium 40 MG DAILY 12/08 1845 AC 12/08 IV 2143 Potassium Chloride 20 MEQ Q1H 12/08 2115 DC 12/08 IV 12/08 2216 2251 Potassium Chloride 20 MEQ Q1H 12/08 1730 DC 12/08 IV 12/08 1831 2009 Propofol 1,000 MG Q24H 12/09 0115 AC N/A 100 ML IV Propofol 1,000 MG CONTINOUS INFUSION 12/08 1745 DC 12/08 N/A 100 ML IV 1759 Sodium Chloride 1,000 ML BOLUS ONE 12/08 1745 DC 12/08 IV 12/08 1844 1810 Sodium Chloride 1,000 ML BOLUS ONE 12/08 1700 DC 12/08 IV 12/08 1759 1650 Sodium Chloride 1,000 ML BOLUS ONE 12/08 1615 DC 12/08 IV 12/08 1714 1650 Sodium Chloride 1,000 ML BOLUS ONE 12/08 1615 DC 12/08 IV 12/08 1714 1626 Sodium Chloride 1,000 ML BOLUS ONE 12/08 1615 DC 12/08 IV 12/08 1714 1626 Sodium Chloride 1,000 ML BOLUS ONE 12/08 1500 DC 12/08 IV 12/08 1559 1450 Vancomycin HCl 1,000 MG 0500,1700 12/09 0500 AC 12/09 Sodium Chloride 250 ML IV 0504 Vancomycin HCl 0 .STK-MED ONE 12/08 1657 DC .ROUTE Vancomycin HCl 1,000 MG ONCE ONE 12/08 1630 DC 12/08 Sodium Chloride 250 ML IV 12/08 1729 1701 Vital Signs & I&O Last 24 Hrs of Vitals and I&O: Vital Signs Date Time Temp Pulse Resp B/P B/P Pulse O2 O2 Flow FiO2 Mean Ox Delivery Rate 12/09 0808 40 12/09 0545 40 12/09 0400 97 Ventilator 40% 12/09 0348 40 12/09 0215 86 30 129/76 12/09 0107 40 12/09 0000 99 Ventilator 40% 12/08 2300 97.9 86 30 100/68 99 Ventilator 30% 12/08 2245 40 12/08 2000 98 Ventilator 50% 12/08 1930 50 12/08 1900 98 Ventilator 50% 12/08 1852 90 30 110/67 100 Ventilator 55% 12/08 1824 91 30 105/63 100 Ventilator 55% 12/08 1802 100 Ventilator 55% 12/08 1801 97.2 92 30 101/57 100 Ventilator 55% 12/08 1743 94 30 96/53 99 Ventilator 55% 12/08 1725 97.2 98 30 104/59 97 Ventilator 55% 12/08 1659 97.2 98 30 100/59 95 Ventilator 55% 12/08 1648 98 30 88/54 95 Ventilator 55% 12/08 1622 102 30 79/44 98 Ventilator 55% 12/08 1612 97.0 103 24 69/39 05 1612 69/39 12/08 1545 98 Ventilator 55% 12/08 1530 109 32 103/54 99 Ventilator 55% 12/08 1515 96.8 114 24 128/54 100 Ventilator 55% Intake & Output 12/09 1600 12/09 0800 12/09 0000 Intake Total 1077 680 Output Total 950 930 Balance 127 -250 Intake, Blood 224 126 Product Intake, IV 853 554 Number 0 0 Bowel Movements Output, 100 Gastric Drainage Output, Urine 850 930 Patient 184 lb Weight Weight Bed scale Measurement Method Physical Exam General Appearance intubated, not purposeful Skin dry skin on bilateral lower extremities Skin Temp/Moisture Exam: Cool/Dry Sepsis Skin Exam (color): Mottled, Pale HEENT Atraumatic Cardiovascular Regular Rate, Normal S1, Normal S2 Lungs b/l ronchii and rales Abdomen Normal Bowel Sounds, Soft, No Tenderness Extremities No Clubbing Sepsis Peripheral Pulse Location: Dorsalis Pedis Results Last 24 Hrs of Lab Results: Laboratory Tests 12/09/16 0285: pH 7.29 *L, pCO2 34 L, pO2 101 H, HCO3 16 L, ABG O2 Sat (Measured) 97.0, P-50 (Temp Corrected) Y, Carboxyhemoglobin 0.9 L, O2 Concentration % 40%, Temperature 97.2, Respiration Rate 30, O2 Delivery Method ESPRIT, Vent Mode AC, Expiratory Pressure 5, Tidal Volume 500, Phlebotomy Draw Site RIGHT RADIAL 12/09/16 0356: Anion Gap 7, Estimated GFR 50 L, Glucose 81, Calcium 6.4 L, Phosphorus 5.9 H, Magnesium 2.0, Total Bilirubin 0.3, AST 61 H, ALT 42, Albumin 1.6 L, CBC w Diff MAN DIFF ORDERED, RBC 3.59 L, MCV 81.6, MCH 26.3 L, RDW 17.6 H, MPV 6.3 L, Gran % 95.4 H, Lymphocytes % 1.7 L, Monocytes % 2.9, Eosinophils % 0, Basophils % 0 L, Absolute Granulocytes 24.6 H, Segmented Neutrophils 82 H, Band Neutrophils 16 H, Absolute Lymphocytes 0.4 L, Lymphocytes 1 L, Monocytes 1 L, Absolute Monocytes 0.7 H, Absolute Eosinophils 0, Absolute Basophils 0, Platelet Estimate ADEQUATE, Polychromasia 1+, Hypochromic-Microcytic 1+, Poikilocytosis 1+, Ovalocytes 1+, PUBS MCHC 32.3 L, Fld Total RBCs Counted 100 12/09/16 0048: Anion Gap 6, Estimated GFR 46 L, Glucose 88, Calcium 6.3 L, Phosphorus 5.7 H, Magnesium 1.7, Total Bilirubin 0.5, AST 60 H, ALT 33, Troponin I 0.06, Albumin 1.5 L 12/08/160: pH 7.31 L, pCO2 31 L, pO2 70 L, HCO3 15 L, ABG O2 Sat (Measured) 94.0 L, P- 50 (Temp Corrected) Y, Carboxyhemoglobin 1.5, O2 Concentration % 40%, Temperature 96.0 L, Respiration Rate 30, O2 Delivery Method ESPRIT, Vent Mode AC, Expiratory Pressure 5, Tidal Volume 500, Phlebotomy Draw Site RIGHT RADIAL 12/08/162007: Anion Gap 5, Estimated GFR 43 L, Glucose 81, Calcium 5.7 *L, Phosphorus 5.4 H, Magnesium 1.6, Total Bilirubin < 0.1 L, AST 56, ALT 43, Troponin I 0.06, Albumin 1.5 L, PT 12.2, INR 1.16, CBC w Diff NO MAN DIFF REQ, RBC 3.15 L, MCV 80.6, MCH 25.8 L, RDW 18.2 H, MPV 5.8 L, Gran % 88.2 H, Lymphocytes % 5.2 L , Monocytes % 5.4, Eosinophils % 1.0, Basophils % 0.2, Absolute Granulocytes 11.1 H, Absolute Lymphocytes 0.7 L, Absolute Monocytes 0.7 H, Absolute Eosinophils 0.1, Absolute Basophils 0, PUBS MCHC 32.0 L 12/08/16 1856: Lactic Acid 1.6 12/08/16 1840: pH 7.24 *L, pCO2 37, pO2 92, HCO3 16 L, ABG O2 Sat (Measured) 94.0 L, P-50 ( Temp Corrected) N, Carboxyhemoglobin 2.4, O2 Concentration % 55%, Temperature 97.0, Respiration Rate 30, O2 Delivery Method ESPRIT VENT, Vent Mode AC, Expiratory Pressure 5, Tidal Volume 500, Phlebotomy Draw Site RIGHT RADIAL 12/08/16 1550: pH 7.15 *L, pCO2 47 H, pO2 90, HCO3 16 L, ABG O2 Sat (Measured) 91.0 L, P-50 (Temp Corrected) N, Carboxyhemoglobin 4.0, O2 Concentration % 55%, Temperature 97.0, Respiration Rate 24, O2 Delivery Method ESPRIT VENT, Vent Mode AC, Expiratory Pressure 5, Tidal Volume 500, Phlebotomy Draw Site RIGHT RADIAL 12/08/16 1524: Anion Gap 7, Estimated GFR 40 L, BUN/Creatinine Ratio 8.9, Glucose 148 H, Lactic Acid 4.8 H, Calcium 6.4 L, Phosphorus 7.3 H, Magnesium 2.0, Total Bilirubin < 0.1 L, AST 41, ALT 29, Alkaline Phosphatase 163 H, Troponin I 0.04 , Yyr-W-Nteoqyfuozq Pept 6150 H, Total Protein 4.2 L, Albumin 1.5 L, Globulin 2.7, Albumin/Globulin Ratio 0.6 L, TSH 2.290, Free T4 0.84, Prolactin 19.0 H, D-Dimer 3199 H, CBC w Diff MAN DIFF ORDERED, RBC 3.15 L, MCV 81.4, MCH 25.9 L , RDW 17.8 H, MPV 6.0 L, Gran % 88.2 H, Lymphocytes % 7.0 L, Monocytes % 2.4 , Eosinophils % 2.3, Basophils % 0.1, Absolute Granulocytes 17.4 H, Segmented Neutrophils 60, Band Neutrophils 25 H, Absolute Lymphocytes 1.4, Lymphocytes 7 L, Monocytes 5, Absolute Monocytes 0.5, Eosinophils 2, Absolute Eosinophils 0.5, Absolute Basophils 0, Metamyelocytes 1, Platelet Estimate VERIFIED BY SMEAR, Normocytic RBCs VERIFIED, Normochromic RBCs VERIFIED, PUBS MCHC 31.8 L, Serum Alcohol < 10.0 12/08/16 1510: Urine Opiates Screen 919.00, Methadone Screen 82, Barbiturate Screen < 60, Ur Phencyclidine Scrn < 6.00, Amphetamines Screen 107, U Benzodiazepines Scrn < 85, Urine Cocaine Screen < 50, Urine Cannabis Screen < 5.00 Impression/Plan Impression/Plan Impression/Plan: 1. Respiratory failure and Septic shock due to aspiration pneumonia, blood cultures are positive for GPC's and 1 of 2 sets. The patient continues to have metabolic acidosis on ABG. 2. Leukocytosis with bandemia shift secondary to aspiration pneumonia. 3. Status post cardiac arrest and CPR. 4. Decreased level of responsiveness, rule out anoxic brain injury. 5. Anemia of chronic disease, without active bleeding. 6. Recently diagnosed esophageal cancer - awaiting chemoradiation. 7. DEE - Cr improving. 8. History of nephrotic syndrome. 9. Protein calorie malnutrition. 10. Positive urine toxicology screen 11. History of interstitial lung disease and ARDS secondary to chemical pneumonitis 12. History of COPD, with 2 L home oxygen dependence 13. Known diastolic heart failure 14. Known history of hypertension Recommendations: * Discontinue propofol. Attempt to avoid all sedation. * Please place a neurology consult for possible brain anoxia. We will consider an EEG and repeat head CT. * Increase tidal volume to 550 ML. Continue to monitor his airway pressures. * Check an ABG 2 hours after changes are made. * Continue total respiratory care, and nebulizer treatments. * Continue IV Solu-Medrol every every 2 hours. * Monitor off pressors, keep mean arterial pressure greater than 65. * Start IVFs - NS at 50 ml per hour. * Monitor strict I&Os. * Repeat ECHO, follow up cardiology results. * Accu-Cheks to be monitored. * Continue vancomycin and ceftazidime pending final culture results. * Continue DVT/GI prophylaxis - ventilator bundle. * Check labs every 12 hours today. * Continue all supportive care.
--- NOTE | 2016-12-09 10:58 | RADIOLOGY REPORT ---
EXAMINATION: XR PORTABLE CHEST CLINICAL INFORMATION: ET tube and OG tube placement. COMPARISON: X-ray portable chest priors dated 12/08/2016, 10/06/2016, 09/04/2016, 08/26/2016. TECHNIQUE: Portable frontal view of the chest was obtained. FINDINGS: Endotracheal tube tip is 5.7 cm above the luis enrique. Enteric tube courses into the abdomen with tip coiled back upon itself and located in the gastric fundus. The cardiac mediastinal silhouette is enlarged, unchanged. There continue to be diffuse lung parenchymal opacities in the mid and lower lungs, slightly progressive when compared to the prior exam and enlargement of the pulmonary noel, left greater than right is again seen, consistent with adenopathy, demonstrated on recent CT scan. Small bilateral pleural effusions are seen, left greater than right. Significant deformities of both humeral heads are seen, likely due to osteonecrosis and secondary degenerative changes. Known old posterior lateral right eighth rib fracture is not as well appreciated on this exam. IMPRESSION: 1. Endotracheal tube tip 5.7 cm above luis enrique. 2. Enteric tube tip coiled in gastric fundus. 3. Bilateral hilar adenopathy and diffuse bilateral airspace consolidation, most pronounced in the lung bases again seen, slightly progressive compared to the prior chest x-ray. 4. Small bilateral pleural effusions.
--- NOTE | 2016-12-09 14:28 | CT SCAN REPORT ---
EXAMINATION: CT HEAD WITHOUT CONTRAST CLINICAL INFORMATION: Altered mental status. COMPARISON: Head CT from 12/08/2016, 08/05/2016, 08/19/2016. TECHNIQUE: Contiguous axial imaging was performed from the skull base to vertex without intravenous administration of contrast. DLP: 1260 mGy-cm FINDINGS: There is substantial motion on the acquisitions. There is no evidence of acute intracranial hemorrhage or territorial infarction. No abnormal mass effect or midline shift is seen. Ham to white matter differentiation is well preserved. No extra-axial fluid collections are identified. The ventricles are normal in size. There is no gross abnormal attenuation within the brain parenchyma. The cerebellar tonsils appear minimally low-lying and there may be some crowding at the craniocervical junction, not ideally assessed, but unchanged. No acute osseous abnormalities are visualized. There is mucosal thickening in the frontal, ethmoid, sphenoid, and maxillary sinuses in the setting of intubation. Nasogastric tube extends via the left naris. The mastoid air cells and middle ear cavities are clear. No acute soft tissue abnormalities are evident. IMPRESSION: Motion degraded study. No acute intracranial pathology. Inflammatory disease within the paranasal sinuses in the setting of intubation.
--- NOTE | 2016-12-09 15:20 | Cons- Neurology ---
General Information and HPI Consulting Request Date of Consult: 12/09/16 Requested By: DERRICK HULL,Fabio ARANA Reason for Consult: coma Source of Information: family, old records History of Present Illness: 51-year-old male found at home to be unresponsive He is oxygen dependent and has severe neuropathy He was sitting on the couch when this was observed He was brought to ED where he had a cardiac arrest He was intubated. There was no observed seizure He was hypotensive and placed on Levophed. Over the past 24 hours he has remained unresponsive Allergies/Medications Allergies: Coded Allergies: Iodinated Contrast Media - Oral and (IODINATED CONTRAST MEDIA - IV DYE) (RED RASH TOLERATES WITH BENADRYL 01/12/16) Home Med List: Albuterol Sulfate (Proair Hfa) 90 MCG HFA.AER.AD 2 PUF INH Q4-6 PRN PRN BREATHING PROBLEMS (Reported) Albuterol Sulfate 2.5 MG/3 ML (0.083 %) VIAL.NEB 1 Vial INH/[place] PRN COPD ( Reported) Alendronate Sodium (Fosamax) 70 MG TABLET 1 TAB PO QW OSTEOPOROSIS (Reported) in the morning, at least 30 minutes before the first food, beverage, or medication of the day Amitriptyline HCl 150 MG TABLET 1 TAB PO QPM SLEEP (Reported) Baclofen 10 MG TABLET 1 TAB PO TID MUSCLE SPASMS (Reported) NO GIVEN IN THE HOSPITAL Fluticasone-Salmeterol (Advair 100-50 Diskus) 100 MCG-50 MCG/DOSE BLST.W.DEV 1 PUF INH BID COPD (Reported) NOT GIVEN IN THE HOSPITAL Furosemide 40 MG TABLET 1 TAB PO BID EDEMA (Reported) Gabapentin (Neurontin) 800 MG TABLET 1 TAB PO 4X PER DAY NEUROPATHY (Reported ) Losartan Potassium (Cozaar) 50 MG TABLET 1 TAB PO DAILY BP (Reported) [METOLAZONE] EDEMA (Reported) Oxycodone HCl 30 MG TABLET 1 TAB PO TIDPRN PAIN (Reported) Oxycodone HCl (Oxycontin) 40 MG TAB.ER.12H 1 TAB PO BID PAIN (Reported) Prednisone 10 MG TABLET 1 TAB PO DAILY LUNGS (Reported) Current Medications: Current Medications Sig/Silvana Start time Last Medication Dose Route Stop Time Status Admin Albuterol Sulfate 3 ML BID 12/09 1000 AC 05/25 INH 0857 Ampicillin Sodium/ 0 .STK-MED ONE 12/08 1623 DC Sulbactam Sodium .ROUTE Ampicillin Sodium/ 3,000 MG ONCE ONE 12/08 1615 DC 12/08 Sulbactam Sodium IV 12/08 1644 1623 Sodium Chloride 100 ML Calcium Gluconate 1 GM ONCE ONE 12/08 2115 DC 12/08 Sodium Chloride 100 ML IV 12/08 2214 2330 Ceftazidime 2,000 MG Q12 12/08 2200 AC 12/09 Dextrose/Water 50 ML IV 1126 Epinephrine 1 MG ONCE ONE 12/08 1630 DC 12/08 IV 12/08 1631 1503 Epinephrine 1 MG ONCE ONE 12/08 1630 DC 12/08 IV 12/08 1631 1505 Heparin Sodium 0 .STK-MED ONE 12/08 1818 DC (Porcine) .ROUTE Heparin Sodium 5,000 UNIT Q8 12/08 1726 AC 12/09 (Porcine) SC 0508 Magnesium Sulfate 1 GM Q1H 12/08 2114 DC 12/09 Dextrose/Water 100 ML IV 12/08 2314 0106 Methylprednisolone 40 MG Q12 12/08 2200 AC 12/09 IV 1051 Naloxone HCl 2 MG ONCE ONE 12/08 1630 DC 12/08 IV 12/08 1631 1503 Naloxone HCl 2 MG ONCE ONE 12/08 1630 DC 12/08 IV 12/08 1631 1505 Non-Formulary 0 SEE ADMIN CRITERIA 12/08 174 CAN Medication ANY Norepinephrine 4 MG Q9H 12/09 0200 DC 12/09 Sodium Chloride 250 ML IV 0215 Norepinephrine 4 MG Q24H 12/08 2215 DC Sodium Chloride 250 ML IV Norepinephrine 0 .STK-MED ONE 12/08 1601 DC IV Norepinephrine 4 MG ONCE ONE 12/08 1600 DC 12/08 Sodium Chloride 250 ML IV 12/08 1601 1612 Pantoprazole Sodium 40 MG DAILY 12/09 1000 DC IV Pantoprazole Sodium 40 MG DAILY 12/08 1845 AC 12/09 IV 1051 Potassium Chloride 20 MEQ Q1H 12/08 211 DC 12/08 IV 12/08 2216 2251 Potassium Chloride 20 MEQ Q1H 12/08 1730 DC 12/08 IV 12/08 1831 2009 Propofol 1,000 MG Q24H 12/09 0115 DC N/A 100 ML IV Propofol 1,000 MG CONTINOUS INFUSION 12/08 1745 DC 12/08 N/A 100 ML IV 1759 Sodium Chloride 1,000 ML Q20H 12/09 1000 AC 12/09 IV 1050 Sodium Chloride 1,000 ML BOLUS ONE 12/08 1745 DC 12/08 IV 12/08 1844 1810 Sodium Chloride 1,000 ML BOLUS ONE 12/08 1700 DC / IV 12/08 1759 1650 Sodium Chloride 1,000 ML BOLUS ONE 12/08 1615 DC 12/08 IV 12/08 1714 1650 Sodium Chloride 1,000 ML BOLUS ONE 12/08 1615 DC 05 IV 12/08 1714 1626 Sodium Chloride 1,000 ML BOLUS ONE 12/08 1615 DC 12/08 IV 12/08 1714 1626 Sodium Chloride 1,000 ML BOLUS ONE 12/08 1500 DC 12/08 IV 12/08 1559 1450 Vancomycin HCl 1,000 MG 0500,1700 12/09 0500 AC 12/09 Sodium Chloride 250 ML IV 0504 Vancomycin HCl 0 .STK-MED ONE 12/08 1657 DC .ROUTE Vancomycin HCl 1,000 MG ONCE ONE 12/08 1630 DC 12/08 Sodium Chloride 250 ML IV 12/08 1729 1701 Review of Systems Review of Systems: He walks minimally, according to patient's sister there have been no significant complaints prior to this event Other systems reviewed cannot be obtained Past History Travel History Traveled to [place] past 21 day No Medical History Blood Transfusion Hx: Yes Neurological: peripheral neuropathy (critical illness neuropathy) EENT: NONE Cardiovascular: CHF, hypertension, hyperlipidemia, right-sided heart failure Respiratory: COPD, 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 Cerebral hemorrhage MOTHER ([employer]). Age 74. BROTHER, Age 49. BROTHER ([employer]). MGF, , Age 80; Cause: Gastric carcinoma. Relation not specified for: gastric cancer Psychosocial History Where Do You Live? Home Who Do You Live With? spouse, child Services at Home: Oxygen Primary Language: Slovak Smoking Status: Unknown If Ever Smoked Living Will? yes Power of Heat Treater Head/HCP? no Functional Ability ADLs Independent: dressing, eating, toileting, bathing. Ambulation: cane IADLs Independent: shopping, housework, finances, food prep, telephone, transportation , medication admin. ECHO Results (as available) Date of last Echo 12/08/16 EF% 60 Exam & Diagnostic Data Vital Signs and I&O Vital Signs Date Time Temp Pulse Resp B/P B/P Pulse O2 O2 Flow FiO2 Mean Ox Delivery Rate 12/09 1434 Ventilator 40% 12/09 1420 40 12/09 1231 40 12/09 1200 99 Ventilator 30% 12/09 0808 40 12/09 0800 94 Ventilator 40% 12/09 0800 97.6 96 29 110/60 94 Ventilator 40% 12/09 0545 40 12/09 0400 97 Ventilator 40% 12/09 0348 40 12/09 0215 86 30 129/76 12/09 0107 40 12/09 0000 99 Ventilator 40% 12/08 2300 97.9 86 30 100/68 99 Ventilator 30% 12/08 2245 40 12/08 2000 98 Ventilator 50% 12/08 1930 50 0524 1900 98 Ventilator 50% 0524 1852 90 30 110/67 100 Ventilator 55% 05/ 1824 91 30 105/63 100 Ventilator 55% 05/ 1802 100 Ventilator 55% 05/ 1801 97.2 92 30 101/57 100 Ventilator 55% 12/08 1743 94 30 96/53 99 Ventilator 55% 0524 1725 97.2 98 30 104/59 97 Ventilator 55% 0524 1659 97.2 98 30 100/59 95 Ventilator 55% 0524 1648 98 30 88/54 95 Ventilator 55% 05/24 1622 102 30 79/44 98 Ventilator 55% 0524 1612 97.0 103 24 69/39 05/24 1612 69/39 0524 1545 98 Ventilator 55% /24 1530 109 32 103/54 99 Ventilator 55% Intake & Output 12/09 1600 12/09 0800 05 0000 Intake Total 542 1077 680 Output Total 450 950 930 Balance 92 127 -250 Intake, Blood 224 126 Product Intake, IV 442 853 554 Intake, Oral 0 Intake, Other 100 Number 0 0 0 Bowel Movements Output, 100 Gastric Drainage Output, Urine 450 850 930 Patient 184 lb 184 lb Weight Weight Bed scale Measurement Method Physical Exam: Intubated, not on sedatives Respirator set to 30 breaths per minute; not overriding respirator Heart sounds normal, no carotid bruits, distal pulses intact No response to verbal stimuli Pupils large not reactive, gaze preference to left, not crossing midline, Corneal response intact bilaterally, fundi not adequately visualized, no obvious facial weakness, intubated and palate tongue cannot be evaluated No meaningful response in limbs Decorticates to noxious stimuli bilaterally, Hyperreflexic lower extremities Plantar response upgoing on left Last 48 Hours of Lab Results: Laboratory Tests 12/09 12/09 1200 0455 Blood Gas pH (7.35 - 7.45 PH) 7.35 7.29 *L pCO2 (35 - 45 TORR) 28 L 34 L pO2 (80 - 100 TORR) 110 H 101 H HCO3 (21 - 28 MEQ/L) 15 L 16 L ABG O2 Sat (Measured) (>96.0 %) 97.0 97.0 P-50 (Temp Corrected) N Y Carboxyhemoglobin (1.5 - 5.0 %) 0.9 L 0.9 L O2 Concentration % 40% 40% Temperature (97.0 - 100.0 FARH) 97.6 97.2 Respiration Rate (BPM) 30 30 O2 Delivery Method VENT ESPRIT Vent Mode VC-AC AC Expiratory Pressure (CMH2O/P) 5 5 Tidal Volume (CC) 550 500 Miscellaneous Phlebotomy Draw Site RIGHT RADIAL RIGHT RADIAL 12/09 12/09 0446 0048 Chemistry Sodium (137 - 145 mmol/L) 135 L 133 L Potassium (3.5 - 5.1 mmol/L) 4.4 4.6 Chloride (98 - 107 mmol/L) 112 H 112 H Carbon Dioxide (22 - 30 mmol/L) 16 L 16 L Anion Gap (5 - 16) 7 6 BUN (9 - 20 mg/dL) 16 17 Creatinine (0.7 - 1.2 mg/dL) 1.5 H 1.6 H Estimated GFR (>60 ml/min) 50 L 46 L Glucose (65 - 99 mg/dL) 81 88 Calcium (8.4 - 10.2 mg/dL) 6.4 L 6.3 L Phosphorus (2.5 - 4.5 mg/dL) 5.9 H 5.7 H Magnesium (1.6 - 2.3 mg/dL) 2.0 1.7 Total Bilirubin (0.2 - 1.3 mg/dL) 0.3 0.5 AST (17 - 59 U/L) 61 H 60 H ALT (21 - 72 U/L) 42 33 Troponin I (<0.11 ng/ml) 0.06 Albumin (3.5 - 5.0 g/dL) 1.6 L 1.5 L Hematology CBC w Diff MAN DIFF ORDERED WBC (4.8 - 10.8 /CUMM) 25.8 H RBC (4.70 - 6.10 /CUMM) 3.59 L Hgb (14.0 - 18.0 G/DL) 9.4 L Hct (42 - 52 %) 29.3 L MCV (80.0 - 94.0 FL) 81.6 MCH (27.0 - 31.0 PG) 26.3 L RDW (11.5 - 14.5 %) 17.6 H Plt Count (130 - 400 /CUMM) 333 MPV (7.4 - 10.4 FL) 6.3 L Gran % (42.2 - 75.2 %) 95.4 H Lymphocytes % (20.5 - 51.1 %) 1.7 L Monocytes % (1.7 - 9.3 %) 2.9 Eosinophils % (0 - 5 %) 0 Basophils % (0.0 - 2.0 %) 0 L Absolute Granulocytes (1.4 - 6.5 /CUMM) 24.6 H Segmented Neutrophils (42.2 - 75.2 %) 82 H Band Neutrophils (0.0 - 5.0 %) 16 H Absolute Lymphocytes (1.2 - 3.4 /CUMM) 0.4 L Lymphocytes (20.5 - 51.1 %) 1 L Monocytes (1.7 - 9.3 %) 1 L Absolute Monocytes (0.10 - 0.60 /CUMM) 0.7 H Absolute Eosinophils (0.0 - 0.7 /CUMM) 0 Absolute Basophils (0.0 - 0.2 /CUMM) 0 Platelet Estimate (ADEQUATE) ADEQUATE Polychromasia 1+ Hypochromic-Microcytic 1+ Poikilocytosis 1+ Ovalocytes 1+ PUBS MCHC (33.0 - 37.0 G/DL) 32.3 L Other Body Source Fld Total RBCs Counted (%) 100 12/08 Blood Gas pH (7.35 - 7.45 PH) 7.31 L pCO2 (35 - 45 TORR) 31 L pO2 (80 - 100 TORR) 70 L HCO3 (21 - 28 MEQ/L) 15 L ABG O2 Sat (Measured) (>96.0 %) 94.0 L P-50 (Temp Corrected) Y Carboxyhemoglobin (1.5 - 5.0 %) 1.5 O2 Concentration % 40% Temperature (97.0 - 100.0 FARH) 96.0 L Respiration Rate (BPM) 30 O2 Delivery Method ESPRIT Vent Mode AC Expiratory Pressure (CMH2O/P) 5 Tidal Volume (CC) 500 Chemistry Sodium (137 - 145 mmol/L) 131 L Potassium (3.5 - 5.1 mmol/L) 3.7 Chloride (98 - 107 mmol/L) 110 H Carbon Dioxide (22 - 30 mmol/L) 17 L Anion Gap (5 - 16) 5 BUN (9 - 20 mg/dL) 15 Creatinine (0.7 - 1.2 mg/dL) 1.7 H Estimated GFR (>60 ml/min) 43 L Glucose (65 - 99 mg/dL) 81 Lactic Acid (0.7 - 2.1 mmol/L) 1.6 Calcium (8.4 - 10.2 mg/dL) 5.7 *L Phosphorus (2.5 - 4.5 mg/dL) 5.4 H Magnesium (1.6 - 2.3 mg/dL) 1.6 Total Bilirubin (0.2 - 1.3 mg/dL) < 0.1 L AST (17 - 59 U/L) 56 ALT (21 - 72 U/L) 43 Troponin I (<0.11 ng/ml) 0.06 Albumin (3.5 - 5.0 g/dL) 1.5 L Coagulation PT (9.4 - 12.5 SEC) 12.2 INR (0.90 - 1.17) 1.16 Hematology CBC w Diff NO MAN DIFF REQ WBC (4.8 - 10.8 /CUMM) 12.6 H RBC (4.70 - 6.10 /CUMM) 3.15 L Hgb (14.0 - 18.0 G/DL) 8.1 L Hct (42 - 52 %) 25.4 L MCV (80.0 - 94.0 FL) 80.6 MCH (27.0 - 31.0 PG) 25.8 L RDW (11.5 - 14.5 %) 18.2 H Plt Count (130 - 400 /CUMM) 298 MPV (7.4 - 10.4 FL) 5.8 L Gran % (42.2 - 75.2 %) 88.2 H Lymphocytes % (20.5 - 51.1 %) 5.2 L Monocytes % (1.7 - 9.3 %) 5.4 Eosinophils % (0 - 5 %) 1.0 Basophils % (0.0 - 2.0 %) 0.2 Absolute Granulocytes (1.4 - 6.5 /CUMM) 11.1 H Absolute Lymphocytes (1.2 - 3.4 /CUMM) 0.7 L Absolute Monocytes (0.10 - 0.60 /CUMM) 0.7 H Absolute Eosinophils (0.0 - 0.7 /CUMM) 0.1 Absolute Basophils (0.0 - 0.2 /CUMM) 0 PUBS MCHC (33.0 - 37.0 G/DL) 32.0 L Miscellaneous Phlebotomy Draw Site RIGHT RADIAL 12/08 12/08 1840 1709 Blood Gas pH (7.35 - 7.45 PH) 7.24 *L pCO2 (35 - 45 TORR) 37 pO2 (80 - 100 TORR) 92 HCO3 (21 - 28 MEQ/L) 16 L ABG O2 Sat (Measured) (>96.0 %) 94.0 L P-50 (Temp Corrected) N Carboxyhemoglobin (1.5 - 5.0 %) 2.4 O2 Concentration % 55% Temperature (97.0 - 100.0 FARH) 97.0 Respiration Rate (BPM) 30 O2 Delivery Method ESPRIT VENT Vent Mode AC Expiratory Pressure (CMH2O/P) 5 Tidal Volume (CC) 500 Miscellaneous Phlebotomy Draw Site RIGHT RADIAL Urines Urine Color (YEL,AMB,STR) Pending Urine Clarity (CLEAR) Pending Urine pH (5.0 - 8.0) Pending Ur Specific [place] (1.001 - 1.035) Pending Urine Protein (NEG,<30 MG/DL) Pending Urine Ketones (NEG) Pending Urine Nitrite (NEG) Pending Urine Bilirubin (NEG) Pending Urine Urobilinogen (0.1 - 1.0 EU/dl) Pending Ur Leukocyte Esterase (NEG) Pending Ur Microscopic SEDIMENT EXAMINED Urine RBC (0 - 5 /HPF) Pending Urine Hemoglobin (NEG) Pending Urine Glucose (N MG/DL) Pending 12/08 12/08 1550 1524 Blood Gas pH (7.35 - 7.45 PH) 7.15 *L pCO2 (35 - 45 TORR) 47 H pO2 (80 - 100 TORR) 90 HCO3 (21 - 28 MEQ/L) 16 L ABG O2 Sat (Measured) (>96.0 %) 91.0 L P-50 (Temp Corrected) N Carboxyhemoglobin (1.5 - 5.0 %) 4.0 O2 Concentration % 55% Temperature (97.0 - 100.0 FARH) 97.0 Respiration Rate (BPM) 24 O2 Delivery Method ESPRIT VENT Vent Mode AC Expiratory Pressure (CMH2O/P) 5 Tidal Volume (CC) 500 Chemistry Sodium (137 - 145 mmol/L) 130 L Potassium (3.5 - 5.1 mmol/L) 3.3 L Chloride (98 - 107 mmol/L) 106 Carbon Dioxide (22 - 30 mmol/L) 17 L Anion Gap (5 - 16) 7 BUN (9 - 20 mg/dL) 16 Creatinine (0.7 - 1.2 mg/dL) 1.8 H Estimated GFR (>60 ml/min) 40 L BUN/Creatinine Ratio (7 - 25 %) 8.9 Glucose (65 - 99 mg/dL) 148 H Lactic Acid (0.7 - 2.1 mmol/L) 4.8 H Calcium (8.4 - 10.2 mg/dL) 6.4 L Phosphorus (2.5 - 4.5 mg/dL) 7.3 H Magnesium (1.6 - 2.3 mg/dL) 2.0 Total Bilirubin (0.2 - 1.3 mg/dL) < 0.1 L AST (17 - 59 U/L) 41 ALT (21 - 72 U/L) 29 Alkaline Phosphatase (< 127 U/L) 163 H Troponin I (<0.11 ng/ml) 0.04 Van-[id number]-[id number] Pept (<125 pg/mL) 6150 H Total Protein (6.3 - 8.2 g/dL) 4.2 L Albumin (3.5 - 5.0 g/dL) 1.5 L Globulin (1.9 - 4.2 gm/dL) 2.7 Albumin/Globulin Ratio (1.1 - 2.2 %) 0.6 L TSH (0.270 - 4.200 uIU/mL) 2.290 Free T4 (0.64 - 1.79 ng/dL) 0.84 Prolactin (3.7 - 17.9 ng/mL) 19.0 H Coagulation D-Dimer (70 - 232 ng/ml) 3199 H Hematology CBC w Diff MAN DIFF ORDERED WBC (4.8 - 10.8 /CUMM) 19.7 H RBC (4.70 - 6.10 /CUMM) 3.15 L Hgb (14.0 - 18.0 G/DL) 8.1 L Hct (42 - 52 %) 25.6 L MCV (80.0 - 94.0 FL) 81.4 MCH (27.0 - 31.0 PG) 25.9 L RDW (11.5 - 14.5 %) 17.8 H Plt Count (130 - 400 /CUMM) 378 MPV (7.4 - 10.4 FL) 6.0 L Gran % (42.2 - 75.2 %) 88.2 H Lymphocytes % (20.5 - 51.1 %) 7.0 L Monocytes % (1.7 - 9.3 %) 2.4 Eosinophils % (0 - 5 %) 2.3 Basophils % (0.0 - 2.0 %) 0.1 Absolute Granulocytes (1.4 - 6.5 /CUMM) 17.4 H Segmented Neutrophils (42.2 - 75.2 %) 60 Band Neutrophils (0.0 - 5.0 %) 25 H Absolute Lymphocytes (1.2 - 3.4 /CUMM) 1.4 Lymphocytes (20.5 - 51.1 %) 7 L Monocytes (1.7 - 9.3 %) 5 Absolute Monocytes (0.10 - 0.60 /CUMM) 0.5 Eosinophils (0 - 5.0 %) 2 Absolute Eosinophils (0.0 - 0.7 /CUMM) 0.5 Absolute Basophils (0.0 - 0.2 /CUMM) 0 Metamyelocytes (0.0 - 1.0 %) 1 Platelet Estimate (ADEQUATE) VERIFIED BY SMEAR Normocytic RBCs VERIFIED Normochromic RBCs VERIFIED PUBS MCHC (33.0 - 37.0 G/DL) 31.8 L Miscellaneous Phlebotomy Draw Site RIGHT RADIAL Toxicology Serum Alcohol (<10 MG/DL) < 10.0 12/08 1510 Toxicology Urine Opiates Screen (>2000 NG/ML) 919.00 Methadone Screen (>300 NG/ML) 82 Barbiturate Screen (>200 NG/ML) < 60 Ur Phencyclidine Scrn (>25 NG/ML) < 6.00 Amphetamines Screen (>1000 NG/ML) 107 U Benzodiazepines Scrn (>200 NG/ML) < 85 Urine Cocaine Screen (>300 NG/ML) < 50 Urine Cannabis Screen (>50 NG/ML) < 5.00 Imaging/Other Studies: CT NDINGS: There is no evidence of acute intracranial hemorrhage or territorial infarction. No abnormal mass effect or midline shift is seen. Ham to white matter differentiation is well preserved. No extra-axial fluid collections are identified. No hydrocephalus. No significant volume loss. There is no abnormal attenuation within the brain parenchyma. The osseous structures and soft tissues are normal. Mild opacification of the ethmoid air cells and maxillary sinuses. The mastoid air cells are well aerated. A nasogastric tube is partially visualized. IMPRESSION: No acute intracranial pathology. Assessment/Plan Assessment: Anoxic encephalopathy, prognosis at 24 hours difficult to assess, but no promising signs on evaluation Recommendations: Discussed with patient's sister prognosis is no firm, early signs do not point to a favorable outcome Continue to support for next 48 hours A decision afterwards would have to be made by family whether to continue support beyond that should there be no promising signs Consult Acknowledgment - Thank you for your consult request.
[2016-12-09 16:00] VITALS: BP 110/60
--- NOTE | 2016-12-09 17:45 | ELECTROENCEPHALOGRAM REPORT ---
Electroencephalogram Report Electroencephalogram Results Date of service: 12/09/16 Attending MD: Fabio MEZA MD Mail Rider: Noel Whittaker EEG Number: [id number] Test Utilizes: 10-20 system, 21 lead 18 channel digital recording Pertinent Hx/Physical/Neuro Findings/Clin Diagnosis: cardiac arrest Inpatient Medications: Current Medications Sig/Silvana Start time Last Medication Dose Route Stop Time Status Admin Albuterol Sulfate 3 ML BID 12/09 1000 AC 12/09 INH 0857 Calcium Gluconate 1 GM ONCE ONE 12/08 2114 DC 12/08 Sodium Chloride 100 ML IV 12/08 221 2330 Ceftazidime 2,000 MG Q12 12/08 2200 AC 12/09 Dextrose/Water 50 ML IV 1126 Heparin Sodium 0 .STK-MED ONE 12/08 181 DC (Porcine) .ROUTE Heparin Sodium 5,000 UNIT Q8 12/08 1726 AC 12/09 (Porcine) SC 1500 Magnesium Sulfate 1 GM Q1H 12/08 2114 DC 12/09 Dextrose/Water 100 ML IV 12/08 2314 0106 Methylprednisolone 40 MG Q12 12/08 2200 AC 12/09 IV 1051 Non-Formulary 0 SEE ADMIN CRITERIA 12/08 174 CAN Medication ANY Norepinephrine 4 MG Q9H 12/09 0200 DC 12/09 Sodium Chloride 250 ML IV 0215 Norepinephrine 4 MG Q24H 12/08 221 DC Sodium Chloride 250 ML IV Pantoprazole Sodium 40 MG DAILY 12/09 1000 DC IV Pantoprazole Sodium 40 MG DAILY 12/08 1845 AC 12/09 IV 1051 Potassium Chloride 20 MEQ Q1H 12/08 211 DC 12/08 IV 12/08 221 2251 Potassium Chloride 20 MEQ Q1H 12/08 1730 DC 12/08 IV 12/08 183 2009 Propofol 1,000 MG Q24H 12/09 0115 DC N/A 100 ML IV Propofol 1,000 MG CONTINOUS INFUSION 12/08 1745 DC 12/08 N/A 100 ML IV 1759 Sodium Chloride 1,000 ML Q20H 12/09 1000 AC 12/09 IV 1050 Sodium Chloride 1,000 ML BOLUS ONE 12/08 1745 DC 12/08 IV 12/08 1844 1810 Sodium Chloride 1,000 ML BOLUS ONE 12/08 1700 DC 12/08 IV 12/08 1759 1650 Vancomycin HCl 1,000 MG 0500,1700 12/09 0500 AC 12/09 Sodium Chloride 250 ML IV 0504 Interpretation: EEG in comatose state Throughout the recording, paroxysmal bursts of sharp and slow complexes, lasting 1 to 1 1/2 seconds are followed by relative loss of cerebral activity for 3-4 seconds in duration Impression: Burst/suppression pattern, often seen in severe anoxic encephalopathy, and usually associiated with a poor prognosis
--- NOTE | 2016-12-09 18:01 | ECHOCARDIOGRAM REPORT ---
TORSTEN CHAUDHARI Age: 51 : 1965 Gender: M Exam Date: 12/08/2016 20:08 Exam Location: [facility] Ht (in): 71 Wt (lb): 180 BSA: 2.03 BP: 108 / 69 Ordering Physician: JOSE DEL VALLE M Referring Physician: Carson Willingham MD Technologist: Rema Kaba [facility] Room Number: 102 Indications: HYPOTENSION Rhythm: Sinus Technical Quality: Fair FINDINGS Left Ventricle Normal size left ventricle. No obvious regional wall motion abnormalities. Abnormal septal motion. Normal left ventricular ejection fraction estimated at 55-60%. Right Ventricle Right ventricle not well visualized, grossly normal. Right Atrium Right atrium not well visualized, grossly normal. Left Atrium Left atrial size at the upper limits of normal. Mitral Valve Mitral valve thickened. Mild mitral annular calcification. Mild mitral regurgitation. Aortic Valve Trileaflet aortic valve. Diffuse thickening (sclerosis) of the aortic valve cusps without reduced excursion. No aortic stenosis. No aortic regurgitation. Tricuspid Valve Tricuspid valve not well visualized, grossly normal. Mild tricuspid regurgitation. Pulmonic Valve Pulmonic valve not well visualized, grossly normal. Pericardium Small pericardial effusion. Great Vessels Aortic root and proximal ascending aorta not well visualized, grossly normal. CONCLUSIONS 1. This was a technically difficult study due to the [id number]'s body habitus and clinical status. 2. Minimal to mild aortic sclerosis is present with no valvular stenosis or insufficiency. 3. Mitral leaflet thickeining is present with mild anular calcification and mild mitral insufficiency. 4. A very small pericardial effusion is present. 5. The left ventricular chamber size is normal with an ejection fraction of 55-60%. Abnormal septal motion is present suggestive of the presence of pulmonary hypertension. 6. The right heart structures were not optimally visualized. Mild tricuspid insufficiency is present but the RV systolic pressure was not accurately assessed. Carson Willingham M.D. (Electronically Signed) Final Date: 09 Dec 2016 18:00 MEASUREMENTS (Male / Female) Normal Values 2D ECHO LV Diastolic Diameter PLAX 4.1 cm 4.2 - 5.9 / 3.9 - 5.3 cm LV Systolic Diameter PLAX 3.2 cm 2.1 - 4.0 cm LV Fractional Shortening PLAX 22.0 % 25 - 46 % LV Ejection Fraction 2D Teich 44.8 % IVS Diastolic Thickness 1.3 cm LVPW Diastolic Thickness 1.2 cm LV Relative Wall Thickness 0.6 RV Internal Dim ED PLAX 3.1 cm 1.9 - 3.8 cm LVOT Diameter 2.0 cm Aortic Root Diameter 2.9 cm LA Systolic Diameter LX 3.6 cm 3.0 - 4.0 / 2.7 - 3.8 cm LA Volume 31.0 cm 18 - 58 / 22 - 52 cm Ascending Aorta Diameter 2.8 cm DOPPLER AV Peak Velocity 146.0 cm/s AV Peak Gradient 8.5 mmHg AV Mean Velocity 107.0 cm/s AV Mean Gradient 5.0 mmHg AV Velocity Time Integral 27.5 cm LVOT Peak Velocity 117.0 cm/s LVOT Peak Gradient 5.5 mmHg LVOT Mean Velocity 81.1 cm/s LVOT Mean Gradient 3.0 mmHg LVOT Velocity Time Integral 20.8 cm LVOT Stroke Volume 65.3 cm AV Area Cont Eq vti 2.4 cm AV Area Cont Eq pk 2.5 cm MV Peak Velocity 108.0 cm/s MV Peak Gradient 4.7 mmHg MV Mean Velocity 64.4 cm/s MV Mean Gradient 2.0 mmHg Mitral E Point Velocity 98.2 cm/s Mitral A Point Velocity 74.5 cm/s Mitral E to A Ratio 1.3 MV PHT Velocity 111.0 cm/s MV Deceleration Story 637.5 cm/s MV Pressure Half Time 52.2 ms MV Area PHT 4.2 cm MV Deceleration Time 219.0 ms TR Peak Velocity 258.0 cm/s TR Peak Gradient 26.6 mmHg Right Atrial Pressure 10.0 mmHg Pulmonary Artery Systolic Pressu 36.6 mmHg Right Ventricular Systolic Press 36.6 mmHg PV Peak Velocity 126.0 cm/s PV Peak Gradient 6.4 mmHg PV Mean Velocity 91.3 cm/s PV Mean Gradient 4.0 mmHg PV Velocity Time Integral 22.8 cm LV E' Lateral Velocity 9.8 cm/s Mitral E to LV E' Lateral Ratio 10.1 LV E' Septal Velocity 7.9 cm/s Mitral E to LV E' Septal Ratio 12.4
--- NOTE | 2016-12-09 18:36 | Cons- Cardiology ---
General Information and HPI Consulting Request Date of Consult: 12/09/16 Requested By: Fabio MEZA MD Reason for Consult: S/P cardiac arrest Source of Information: old records History of Present Illness: This is a 51-year-old gentleman whose medical issues include diastolic CHF, hypertension, COPD with 2 L home oxygen dependence, ILD, history of large with prolonged mechanical ventilation, CKD, neuropathy that presented to the emergency room via ambulance after family found him unresponsive on the couch. They stated that this morning he was okay and was sitting on the couch while they were outside working on his car, after leaving him on attended for about 45 minutes to return inside the house and found him to be unresponsive with oral secretions. He was subsequently brought to the emergency room via ambulance where he received Narcan with mild alleviation in his respiratory status. In the ER the patient went into bradycardic cardiac arrest and CPR was administered with 2 rounds of epinephrine, subsequently he had return of rhythm and pulses he was intubated and a right femoral central line was placed. He is currently on pressors, intubated and unresponsive. Allergies/Medications Allergies: Coded Allergies: Iodinated Contrast Media - Oral and (IODINATED CONTRAST MEDIA - IV DYE) (RED RASH TOLERATES WITH BENADRYL 01/12/16) Home Med List: Albuterol Sulfate (Proair Hfa) 90 MCG HFA.AER.AD 2 PUF INH Q4-6 PRN PRN BREATHING PROBLEMS (Reported) Albuterol Sulfate 2.5 MG/3 ML (0.083 %) VIAL.NEB 1 Vial INH/[place] PRN COPD ( Reported) Alendronate Sodium (Fosamax) 70 MG TABLET 1 TAB PO QW OSTEOPOROSIS (Reported) in the morning, at least 30 minutes before the first food, beverage, or medication of the day Amitriptyline HCl 150 MG TABLET 1 TAB PO QPM SLEEP (Reported) Baclofen 10 MG TABLET 1 TAB PO TID MUSCLE SPASMS (Reported) NO GIVEN IN THE HOSPITAL Fluticasone-Salmeterol (Advair 100-50 Diskus) 100 MCG-50 MCG/DOSE BLST.W.DEV 1 PUF INH BID COPD (Reported) NOT GIVEN IN THE HOSPITAL Furosemide 40 MG TABLET 1 TAB PO BID EDEMA (Reported) Gabapentin (Neurontin) 800 MG TABLET 1 TAB PO 4X PER DAY NEUROPATHY (Reported ) Losartan Potassium (Cozaar) 50 MG TABLET 1 TAB PO DAILY BP (Reported) [METOLAZONE] EDEMA (Reported) Oxycodone HCl 30 MG TABLET 1 TAB PO TIDPRN PAIN (Reported) Oxycodone HCl (Oxycontin) 40 MG TAB.ER.12H 1 TAB PO BID PAIN (Reported) Prednisone 10 MG TABLET 1 TAB PO DAILY LUNGS (Reported) Current Medications: Current Medications Sig/Silvana Start time Last Medication Dose Route Stop Time Status Admin Albuterol Sulfate 3 ML BID 12/09 1000 AC 12/09 INH 0857 Calcium Gluconate 1 GM ONCE ONE 12/08 2114 DC 12/08 Sodium Chloride 100 ML IV 12/08 221 2330 Ceftazidime 2,000 MG Q12 12/08 220 AC 12/09 Dextrose/Water 50 ML IV 1126 Heparin Sodium 5,000 UNIT Q8 12/08 1726 AC 12/09 (Porcine) SC 1500 Magnesium Sulfate 1 GM Q1H 12/08 2114 DC 12/09 Dextrose/Water 100 ML IV 12/08 2314 0106 Methylprednisolone 40 MG Q12 12/08 2200 AC 12/09 IV 1051 Norepinephrine 4 MG Q9H 12/09 0200 DC 12/09 Sodium Chloride 250 ML IV 0215 Norepinephrine 4 MG Q24H 12/08 2215 DC Sodium Chloride 250 ML IV Pantoprazole Sodium 40 MG DAILY 12/08 1845 AC 12/09 IV 1051 Potassium Chloride 20 MEQ Q1H 12/08 211 DC 12/08 IV 12/08 2216 2251 Propofol 1,000 MG Q24H 12/09 0115 DC N/A 100 ML IV Propofol 1,000 MG CONTINOUS INFUSION 12/08 1745 DC 12/08 N/A 100 ML IV 1759 Sodium Chloride 1,000 ML Q20H 12/09 1000 AC 12/09 IV 1050 Sodium Chloride 1,000 ML BOLUS ONE 12/08 1745 DC 12/08 IV 12/08 1844 1810 Vancomycin HCl 1,000 MG 0500,1700 12/09 0500 AC 12/09 Sodium Chloride 250 ML IV 1700 Past History Travel History Traveled to [place] past 21 day No Medical History Blood Transfusion Hx: Yes Neurological: peripheral neuropathy (critical illness neuropathy) EENT: NONE Cardiovascular: CHF, hypertension, hyperlipidemia, right-sided heart failure Respiratory: COPD, 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 Cerebral hemorrhage MOTHER ([employer]). Age 74. BROTHER, Age 49. BROTHER ([employer]). MGF, , Age 80; Cause: Gastric carcinoma. Relation not specified for: gastric cancer Psychosocial History Where Do You Live? Home Who Do You Live With? spouse, child Services at Home: Oxygen Primary Language: Syriac Smoking Status: Unknown If Ever Smoked Living Will? yes Power of Transport Medic/HCP? no Functional Ability ADLs Independent: dressing, eating, toileting, bathing. Ambulation: cane IADLs Independent: shopping, housework, finances, food prep, telephone, transportation , medication admin. ECHO Results (as available) Date of last Echo 12/08/16 EF% 60 Report: CONCLUSIONS 1. This was a technically difficult and somewhat limited examination due to the patient's body habitus. 2. Minimal to mild aortic sclerosis is present with no evidence of valvular stenosis or insufficiency. 3. Mitral leaflet thickening is present with mild mitral insufficiency and mild left atrial dilatation. 4. There is no significant pericardial fluid present. 5. The left ventricular chamber size and systolic function are normal. Borderline concentric hypertrophy is present. There are no obvious resting wall motion abnormalities. 6. The RV chamber is upper normal in size with mild to moderate tricuspid insufficiency, mild right atrial dilatation and an estimated RV systolic pressure of 42 mmHg. Exam & Diagnostic Data Vital Signs and I&O Vital Signs Date Time Temp Pulse Resp B/P B/P Pulse O2 O2 Flow FiO2 Mean Ox Delivery Rate 12/09 1600 35 12/09 1600 99 Ventilator 35% 12/09 1600 100.4 96 30 110/60 99 Ventilator 40% 05/ 1434 Ventilator 40% 05 1420 40 05/ 1231 40 05/ 1200 99 Ventilator 30% 12/09 0808 40 12/09 0800 94 Ventilator 40% 05 0800 97.6 96 29 110/60 94 Ventilator 40% 05/ 0545 40 12/09 0400 97 Ventilator 40% 12/09 0348 40 12/09 0215 86 30 129/76 12/09 0107 40 12/09 0000 99 Ventilator 40% 12/08 2300 97.9 86 30 100/68 99 Ventilator 30% 12/08 2245 40 12/09 1999 98 Ventilator 50% 12/08 1930 50 12/08 1900 98 Ventilator 50% 12/08 1852 90 30 110/67 100 Ventilator 55% Intake & Output 12/09 0800 12/09 0000 12/08 1600 12/08 0812/08 0000 Intake Total 542 1077 680 Output Total 450 950 930 Balance 92 127 -250 Intake, Blood 224 126 Product Intake, IV 442 853 554 Intake, Oral 0 Intake, Other 100 Number 0 0 0 Bowel Movements Output, 100 Gastric Drainage Output, Urine 450 850 930 Patient 184 lb 184 lb 180 lb Weight Weight Bed scale Estimated Measurement Method Physical Exam: General Appearance intubated, unresponsive Skin dry skin on bilateral lower extremities HEENT Normal Cardiovascular Regular Rate, Normal S1, Normal S2, 2/6 systolic murmur Lungs b/l ronchii and rales Abdomen Normal Bowel Sounds, Soft, No Tenderness Extremities No Clubbing, 2+bilateral edema Labs/Alonso Results: Laboratory Tests 12/09 12/09 12/09 1813 1200 0455 Blood Gas pH (7.35 - 7.45 PH) 7.35 7.29 *L pCO2 (35 - 45 TORR) 28 L 34 L pO2 (80 - 100 TORR) 110 H 101 H HCO3 (21 - 28 MEQ/L) 15 L 16 L ABG O2 Sat (Measured) (>96.0 %) 97.0 97.0 P-50 (Temp Corrected) N Y Carboxyhemoglobin (1.5 - 5.0 %) 0.9 L 0.9 L O2 Concentration % 40% 40% Temperature (97.0 - 100.0 FARH) 97.6 97.2 Respiration Rate (BPM) 30 30 O2 Delivery Method VENT ESPRIT Vent Mode VC-AC AC Expiratory Pressure (CMH2O/P) 5 5 Tidal Volume (CC) 550 500 Chemistry Sodium Pending Potassium Pending Chloride Pending Carbon Dioxide Pending Anion Gap Pending BUN Pending Creatinine Pending Glucose Pending Calcium Pending Phosphorus Pending Magnesium Pending Total Bilirubin Pending AST Pending ALT Pending Albumin Pending Hematology CBC w Diff Pending WBC Pending RBC Pending Hgb Pending Hct Pending MCV Pending MCH Pending RDW Pending Plt Count Pending MPV Pending PUBS MCHC Pending Miscellaneous Phlebotomy Draw Site RIGHT RADIAL RIGHT RADIAL 12/09 12/09 0446 0048 Chemistry Sodium (137 - 145 mmol/L) 135 L 133 L Potassium (3.5 - 5.1 mmol/L) 4.4 4.6 Chloride (98 - 107 mmol/L) 112 H 112 H Carbon Dioxide (22 - 30 mmol/L) 16 L 16 L Anion Gap (5 - 16) 7 6 BUN (9 - 20 mg/dL) 16 17 Creatinine (0.7 - 1.2 mg/dL) 1.5 H 1.6 H Estimated GFR (>60 ml/min) 50 L 46 L Glucose (65 - 99 mg/dL) 81 88 Calcium (8.4 - 10.2 mg/dL) 6.4 L 6.3 L Phosphorus (2.5 - 4.5 mg/dL) 5.9 H 5.7 H Magnesium (1.6 - 2.3 mg/dL) 2.0 1.7 Total Bilirubin (0.2 - 1.3 mg/dL) 0.3 0.5 AST (17 - 59 U/L) 61 H 60 H ALT (21 - 72 U/L) 42 33 Troponin I (<0.11 ng/ml) 0.06 Albumin (3.5 - 5.0 g/dL) 1.6 L 1.5 L Hematology CBC w Diff MAN DIFF ORDERED WBC (4.8 - 10.8 /CUMM) 25.8 H RBC (4.70 - 6.10 /CUMM) 3.59 L Hgb (14.0 - 18.0 G/DL) 9.4 L Hct (42 - 52 %) 29.3 L MCV (80.0 - 94.0 FL) 81.6 MCH (27.0 - 31.0 PG) 26.3 L RDW (11.5 - 14.5 %) 17.6 H Plt Count (130 - 400 /CUMM) 333 MPV (7.4 - 10.4 FL) 6.3 L Gran % (42.2 - 75.2 %) 95.4 H Lymphocytes % (20.5 - 51.1 %) 1.7 L Monocytes % (1.7 - 9.3 %) 2.9 Eosinophils % (0 - 5 %) 0 Basophils % (0.0 - 2.0 %) 0 L Absolute Granulocytes (1.4 - 6.5 /CUMM) 24.6 H Segmented Neutrophils (42.2 - 75.2 %) 82 H Band Neutrophils (0.0 - 5.0 %) 16 H Absolute Lymphocytes (1.2 - 3.4 /CUMM) 0.4 L Lymphocytes (20.5 - 51.1 %) 1 L Monocytes (1.7 - 9.3 %) 1 L Absolute Monocytes (0.10 - 0.60 /CUMM) 0.7 H Absolute Eosinophils (0.0 - 0.7 /CUMM) 0 Absolute Basophils (0.0 - 0.2 /CUMM) 0 Platelet Estimate (ADEQUATE) ADEQUATE Polychromasia 1+ Hypochromic-Microcytic 1+ Poikilocytosis 1+ Ovalocytes 1+ PUBS MCHC (33.0 - 37.0 G/DL) 32.3 L Other Body Source Fld Total RBCs Counted (%) 100 12/08 Blood Gas pH (7.35 - 7.45 PH) 7.31 L pCO2 (35 - 45 TORR) 31 L pO2 (80 - 100 TORR) 70 L HCO3 (21 - 28 MEQ/L) 15 L ABG O2 Sat (Measured) (>96.0 %) 94.0 L P-50 (Temp Corrected) Y Carboxyhemoglobin (1.5 - 5.0 %) 1.5 O2 Concentration % 40% Temperature (97.0 - 100.0 FARH) 96.0 L Respiration Rate (BPM) 30 O2 Delivery Method ESPRIT Vent Mode AC Expiratory Pressure (CMH2O/P) 5 Tidal Volume (CC) 500 Chemistry Sodium (137 - 145 mmol/L) 131 L Potassium (3.5 - 5.1 mmol/L) 3.7 Chloride (98 - 107 mmol/L) 110 H Carbon Dioxide (22 - 30 mmol/L) 17 L Anion Gap (5 - 16) 5 BUN (9 - 20 mg/dL) 15 Creatinine (0.7 - 1.2 mg/dL) 1.7 H Estimated GFR (>60 ml/min) 43 L Glucose (65 - 99 mg/dL) 81 Lactic Acid (0.7 - 2.1 mmol/L) 1.6 Calcium (8.4 - 10.2 mg/dL) 5.7 *L Phosphorus (2.5 - 4.5 mg/dL) 5.4 H Magnesium (1.6 - 2.3 mg/dL) 1.6 Total Bilirubin (0.2 - 1.3 mg/dL) < 0.1 L AST (17 - 59 U/L) 56 ALT (21 - 72 U/L) 43 Troponin I (<0.11 ng/ml) 0.06 Albumin (3.5 - 5.0 g/dL) 1.5 L Coagulation PT (9.4 - 12.5 SEC) 12.2 INR (0.90 - 1.17) 1.16 Hematology CBC w Diff NO MAN DIFF REQ WBC (4.8 - 10.8 /CUMM) 12.6 H RBC (4.70 - 6.10 /CUMM) 3.15 L Hgb (14.0 - 18.0 G/DL) 8.1 L Hct (42 - 52 %) 25.4 L MCV (80.0 - 94.0 FL) 80.6 MCH (27.0 - 31.0 PG) 25.8 L RDW (11.5 - 14.5 %) 18.2 H Plt Count (130 - 400 /CUMM) 298 MPV (7.4 - 10.4 FL) 5.8 L Gran % (42.2 - 75.2 %) 88.2 H Lymphocytes % (20.5 - 51.1 %) 5.2 L Monocytes % (1.7 - 9.3 %) 5.4 Eosinophils % (0 - 5 %) 1.0 Basophils % (0.0 - 2.0 %) 0.2 Absolute Granulocytes (1.4 - 6.5 /CUMM) 11.1 H Absolute Lymphocytes (1.2 - 3.4 /CUMM) 0.7 L Absolute Monocytes (0.10 - 0.60 /CUMM) 0.7 H Absolute Eosinophils (0.0 - 0.7 /CUMM) 0.1 Absolute Basophils (0.0 - 0.2 /CUMM) 0 PUBS MCHC (33.0 - 37.0 G/DL) 32.0 L Miscellaneous Phlebotomy Draw Site RIGHT RADIAL 12/08 12/08 1840 1709 Blood Gas pH (7.35 - 7.45 PH) 7.24 *L pCO2 (35 - 45 TORR) 37 pO2 (80 - 100 TORR) 92 HCO3 (21 - 28 MEQ/L) 16 L ABG O2 Sat (Measured) (>96.0 %) 94.0 L P-50 (Temp Corrected) N Carboxyhemoglobin (1.5 - 5.0 %) 2.4 O2 Concentration % 55% Temperature (97.0 - 100.0 FARH) 97.0 Respiration Rate (BPM) 30 O2 Delivery Method ESPRIT VENT Vent Mode AC Expiratory Pressure (CMH2O/P) 5 Tidal Volume (CC) 500 Miscellaneous Phlebotomy Draw Site RIGHT RADIAL Urines Urinalysis LIGHT H Urine Color (YEL,AMB,STR) YEL Urine Clarity (CLEAR) CLEAR Urine pH (5.0 - 8.0) 6.0 Ur Specific [place] (1.001 - 1.035) 1.020 Urine Protein (NEG,<30 MG/DL) >=300 H Urine Ketones (NEG) NEG Urine Nitrite (NEG) NEG Urine Bilirubin (NEG) NEG Urine Urobilinogen (0.1 - 1.0 EU/dl) 0.2 Ur Leukocyte Esterase (NEG) NEG Ur Microscopic SEDIMENT EXAMINED Urine RBC (0 - 5 /HPF) 3-5 Urine WBC (0 - 2 /HPF) 1-3 H Ur Epithelial Cells (NONE,FEW) FEW Urine Bacteria (NEG/NONE) MOD H Hyaline Casts (0/LPF) FEW H Urine Mucus (FEW,NONE) RARE Urine Hemoglobin (NEG) MOD H Urine Glucose (N MG/DL) 100 H 12/08 12/08 1550 1524 Blood Gas pH (7.35 - 7.45 PH) 7.15 *L pCO2 (35 - 45 TORR) 47 H pO2 (80 - 100 TORR) 90 HCO3 (21 - 28 MEQ/L) 16 L ABG O2 Sat (Measured) (>96.0 %) 91.0 L P-50 (Temp Corrected) N Carboxyhemoglobin (1.5 - 5.0 %) 4.0 O2 Concentration % 55% Temperature (97.0 - 100.0 FARH) 97.0 Respiration Rate (BPM) 24 O2 Delivery Method ESPRIT VENT Vent Mode AC Expiratory Pressure (CMH2O/P) 5 Tidal Volume (CC) 500 Chemistry Sodium (137 - 145 mmol/L) 130 L Potassium (3.5 - 5.1 mmol/L) 3.3 L Chloride (98 - 107 mmol/L) 106 Carbon Dioxide (22 - 30 mmol/L) 17 L Anion Gap (5 - 16) 7 BUN (9 - 20 mg/dL) 16 Creatinine (0.7 - 1.2 mg/dL) 1.8 H Estimated GFR (>60 ml/min) 40 L BUN/Creatinine Ratio (7 - 25 %) 8.9 Glucose (65 - 99 mg/dL) 148 H Lactic Acid (0.7 - 2.1 mmol/L) 4.8 H Calcium (8.4 - 10.2 mg/dL) 6.4 L Phosphorus (2.5 - 4.5 mg/dL) 7.3 H Magnesium (1.6 - 2.3 mg/dL) 2.0 Total Bilirubin (0.2 - 1.3 mg/dL) < 0.1 L AST (17 - 59 U/L) 41 ALT (21 - 72 U/L) 29 Alkaline Phosphatase (< 127 U/L) 163 H Troponin I (<0.11 ng/ml) 0.04 Cix-X-Omgnktvyowh Pept (<125 pg/mL) 6150 H Total Protein (6.3 - 8.2 g/dL) 4.2 L Albumin (3.5 - 5.0 g/dL) 1.5 L Globulin (1.9 - 4.2 gm/dL) 2.7 Albumin/Globulin Ratio (1.1 - 2.2 %) 0.6 L TSH (0.270 - 4.200 uIU/mL) 2.290 Free T4 (0.64 - 1.79 ng/dL) 0.84 Prolactin (3.7 - 17.9 ng/mL) 19.0 H Coagulation D-Dimer (70 - 232 ng/ml) 3199 H Hematology CBC w Diff MAN DIFF ORDERED WBC (4.8 - 10.8 /CUMM) 19.7 H RBC (4.70 - 6.10 /CUMM) 3.15 L Hgb (14.0 - 18.0 G/DL) 8.1 L Hct (42 - 52 %) 25.6 L MCV (80.0 - 94.0 FL) 81.4 MCH (27.0 - 31.0 PG) 25.9 L RDW (11.5 - 14.5 %) 17.8 H Plt Count (130 - 400 /CUMM) 378 MPV (7.4 - 10.4 FL) 6.0 L Gran % (42.2 - 75.2 %) 88.2 H Lymphocytes % (20.5 - 51.1 %) 7.0 L Monocytes % (1.7 - 9.3 %) 2.4 Eosinophils % (0 - 5 %) 2.3 Basophils % (0.0 - 2.0 %) 0.1 Absolute Granulocytes (1.4 - 6.5 /CUMM) 17.4 H Segmented Neutrophils (42.2 - 75.2 %) 60 Band Neutrophils (0.0 - 5.0 %) 25 H Absolute Lymphocytes (1.2 - 3.4 /CUMM) 1.4 Lymphocytes (20.5 - 51.1 %) 7 L Monocytes (1.7 - 9.3 %) 5 Absolute Monocytes (0.10 - 0.60 /CUMM) 0.5 Eosinophils (0 - 5.0 %) 2 Absolute Eosinophils (0.0 - 0.7 /CUMM) 0.5 Absolute Basophils (0.0 - 0.2 /CUMM) 0 Metamyelocytes (0.0 - 1.0 %) 1 Platelet Estimate (ADEQUATE) VERIFIED BY SMEAR Normocytic RBCs VERIFIED Normochromic RBCs VERIFIED PUBS MCHC (33.0 - 37.0 G/DL) 31.8 L Miscellaneous Phlebotomy Draw Site RIGHT RADIAL Toxicology Serum Alcohol (<10 MG/DL) < 10.0 12/08 1510 Toxicology Urine Opiates Screen (>2000 NG/ML) 919.00 Methadone Screen (>300 NG/ML) 82 Barbiturate Screen (>200 NG/ML) < 60 Ur Phencyclidine Scrn (>25 NG/ML) < 6.00 Amphetamines Screen (>1000 NG/ML) 107 U Benzodiazepines Scrn (>200 NG/ML) < 85 Urine Cocaine Screen (>300 NG/ML) < 50 Urine Cannabis Screen (>50 NG/ML) < 5.00 Diagnostic Data CXR Results IMPRESSION: 1. Endotracheal tube tip 5.7 cm above luis enrique. 2. Enteric tube tip coiled in gastric fundus. 3. Bilateral hilar adenopathy and diffuse bilateral airspace consolidation, most pronounced in the lung bases again seen, slightly progressive compared to the prior chest x-ray. 4. Small bilateral pleural effusions. Assessment/Plan Assessment/Plan Assessment: 1. S/P bradycardic cardiac arrest likley related to primary pulmonary event. 2. Acute respiratory failure with possible aspiration pneumonia 3. Shock 4. ILD 5. History of nephrotic syndrome Recommendations: 1. Continue as per the critical care team 2. Pressor support as necessary 3. THe patient historically has normal LV funtion, administration of IVF as necessary 4. Echocardiogram to recheck LV funtion 5. Check serial troponins 6. ECG in AM Consult Acknowledgment - Thank you for your consult request.
[2016-12-09 19:03] LABS: ABSOLUTE BASOPHIL COUNT 0 /CUMM (0.0-0.2); ABSOLUTE EOSINOPHIL COUNT 0 /CUMM (0.0-0.7); ABSOLUTE GRANULOCYTE CT 24.4 /CUMM (1.4-6.5); ABSOLUTE LYMPH COUNT 0.9 /CUMM (1.2-3.4); ABSOLUTE MONOCYTE COUNT 0.5 /CUMM (0.10-0.60); BASOPHIL % 0 % (0.0-2.0); EOSINOPHIL % 0 % (0-5); HEMATOCRIT 25.8 % (42-52); MEAN CORPUSCULAR HGB 26.6 PG (27.0-31.0); MEAN CORPUSCULAR VOLUME 80.6 FL (80.0-94.0); MEAN PLATELET VOLUME 6.7 FL (7.4-10.4); PLATELET COUNT 341 /CUMM (130-400); RBC DISTRIBUTION WIDTH 17.8 % (11.5-14.5)
[2016-12-09 19:05] LABS: GRANULOCYTE % 94.8 % (42.2-75.2); WHITE BLOOD CELL COUNT 25.8 /CUMM (4.8-10.8)
[2016-12-09 23:00] VITALS: BP 132/80
--- NOTE | 2016-12-10 04:41 | RADIOLOGY REPORT ---
EXAMINATION: XR PORTABLE CHEST CLINICAL INFORMATION: Endotracheal tube placement. COMPARISON: Chest x-ray December 09, 2016. TECHNIQUE: Portable frontal view of the chest was obtained. FINDINGS: Endotracheal tube tip is approximately 5.5 cm above the luis enrique in unchanged position. Orogastric tube projects below the diaphragm beyond the [id number]. Sable enlargement of the cardiac silhouette. Diffuse airspace opacities within the mid to lower lungs bilaterally appear improved. Bilateral hilar enlargement is redemonstrated consistent with recently seen hilar lymphadenopathy. Small left pleural effusion is again noted. Redemonstrated deformities the humeral heads, again likely due to osteonecrosis and secondary degenerative change. IMPRESSION: - Endotracheal tube tip is approximately 5.5 cm above the luis enrique in unchanged position. Orogastric tube projects below the diaphragm beyond the [id number]. - Slightly slightly improved pulmonary airspace opacities bilaterally. Redemonstrated small left pleural effusion.
[2016-12-10 05:11] LABS: ABSOLUTE BASOPHIL COUNT 0 /CUMM (0.0-0.2); ABSOLUTE EOSINOPHIL COUNT 0.1 /CUMM (0.0-0.7); ABSOLUTE GRANULOCYTE CT 25.6 /CUMM (1.4-6.5); ABSOLUTE MONOCYTE COUNT 0.2 /CUMM (0.10-0.60); BASOPHIL % 0 % (0.0-2.0); EOSINOPHIL % 0.5 % (0-5); GRANULOCYTE % 94.8 % (42.2-75.2); HEMATOCRIT 27.6 % (42-52); MEAN CORPUSCULAR HGB 26.6 PG (27.0-31.0); MEAN CORPUSCULAR HGB CONC 32.5 G/DL (33.0-37.0); MEAN CORPUSCULAR VOLUME 81.6 FL (80.0-94.0); MEAN PLATELET VOLUME 6.6 FL (7.4-10.4); PLATELET COUNT 409 /CUMM (130-400); RBC DISTRIBUTION WIDTH 18.2 % (11.5-14.5); RED BLOOD CELL CT 3.38 /CUMM (4.70-6.10)
--- NOTE | 2016-12-10 07:30 | PN- Resident CRCU ---
Subjective HPI/CRCU Issues: For follow up: #Acute hypoxic respiratory failure secondary to aspiration pneumonia #Septic shock #Status post cardiac arrest and CPR #Anemia of chronic disease #Recently diagnosed esophageal cancer #Acute kidney injury Patient was seen and examined this morning, he responded by opening eyes on painful stimulus, intubated, not sedated, no overnight events reported by the nurse. 24 Hour Events: Temperature 90.8, MAXIMUM TEMPERATURE 100.4 Heart rate lowest 84, highest 112 sinus rhythm Blood pressure lowest 106/63, highest 145/74 Intake 1631, output 1655 IV fluid normal saline running at 50 mL/h AC 500/30/5/35% saturating 95% Objective Vital Signs & I&O Last 8 Hrs of Vitals and I&O: 11 Exam General Appearance: intubated Head: atraumatic, normal appearance Ears, Nose, Throat: normal pharynx, normal ENT inspection Neck: normal inspection, supple, full range of motion Respiratory: chest non-tender Cardiovascular: regular rate/rhythm Gastrointestinal: normal bowel sounds, soft, non-tender Extremities: normal inspection, normal capillary refill, normal range of motion, bilateral LE chronic skin changes, LE pedal +1 pedal edema Cranial Nerves: PERRL Current Medications: Current Medications Sig/Silvana Start time Last Medication Dose Route Stop Time Status Admin Albuterol Sulfate 3 ML BID 12/09 1000 AC 12/10 INH 0828 Artificial Tears 2 GTT TID 12/09 2199 AC 12/10 OPH 0913 Ceftazidime 2,000 MG Q12 12/08 2200 AC 12/10 Dextrose/Water 50 ML IV 0914 Heparin Sodium 5,000 UNIT Q8 12/08 1726 AC 12/10 (Porcine) SC 1400 Lorazepam 2 MG ONE ONE 12/10 1445 DC 12/10 IV 12/10 1446 1444 Magnesium Sulfate 2 GM Q4 HRS NEEDED PRN 12/10 1015 CAN Dextrose/Water 100 ML IV Methylprednisolone 40 MG Q12 12/08 2200 AC 12/10 IV 0913 Morphine Sulfate 2 MG Q4P PRN 12/10 1100 AC 12/10 IV 1100 Pantoprazole Sodium 40 MG DAILY 12/08 1845 AC 12/10 IV 0913 Sodium Chloride 1,000 ML Q20H 12/09 1000 AC 12/10 IV 0918 Vancomycin HCl 1,000 MG 0500,1700 12/09 0500 AC 12/10 Sodium Chloride 250 ML IV 0536 Impression/Plan Impression/Problem List Impression: Mr. Monge is 51-year-old gentleman with past medical history significant for diastolic CHF, hypertension, COPD with 2 L home oxygen dependence, ILD, history of large with prolonged mechanical ventilation, CKD, neuropathy that presented to the emergency room via ambulance after family found him unresponsive. Patient went into cardiac arrest and bradycardia CPR was administered with 2 rounds of epinephrine, subsequently he had return of rhythm and pulses he was intubated and a right femoral central line was placed, Levothroid drip was started. Patient was admitted to ICU for close monitoring. Problem list: #Acute hypoxic respiratory failure secondary to aspiration pneumonia #Septic shock #Status post cardiac arrest and CPR #Anemia of chronic disease #Recently diagnosed esophageal cancer #Acute kidney injury Cardiology -Off Levofed -Blood pressure and heart rate are mildly elevated, patient has history of opioid dependence given chronic pain, on admission opioids was 900. Patient could be withdrawing. We'll start morphine 2 mg every 4 when necessary -Maintain IVF NS 50 cc/h -Monitor strict I&Os -Cardio consultation was placed, waiting for evaluation -Echo 12/08/16 CONCLUSIONS 1. This was a technically difficult study due to the patient's body habitus and clinical status. 2. Minimal to mild aortic sclerosis is present with no valvular stenosis or insufficiency. 3. Mitral leaflet thickeining is present with mild anular calcification and mild mitral insufficiency. 4. A very small pericardial effusion is present. 5. The left ventricular chamber size is normal with an ejection fraction of 55- 60%. Abnormal septal motion is present suggestive of the presence of pulmonary hypertension. 6. The right heart structures were not optimally visualized. Mild tricuspid insufficiency is present but the RV systolic pressure was not accurately assessed. ID -Continue ceftriaxone and vancomycin for aspiration pneumonia, recent history of hospitlization in september -Afubrile -1 set of blood culture and sputum culture are positive for gram positive cocci in pairs and chains, continue to follow Respiratory -Continue Solu-Medrol IV every 12 -Mechanical ventilation, chest x-ray daily -Ventilation bundle Neurology -Neuro consultation was placed -EEG 12/09 Impression: Burst/suppression pattern, often seen in severe anoxic encephalopathy, and usually associiated with a poor prognosis -2 CT scans head did not show acute changes -Guarding prognosis Hematology oncology -Patient was recently diagnosed with esophageal cancer T1N2 -Oncology consultation was obtained, thanks for recommendation Metabolic -Replete electrolytes as needed Alimentary -Nothing by mouth -Nutrition consultation was obtained for tube feeding DVT prophylaxis heparin subcutaneous Code full Consultation cardiology, neuro Problem List: 1. Esophageal cancer 2. Septic shock 3. Shock 4. Aspiration pneumonia Pain Ratin Tomorrow's Labs & Rationales: CBC, ICU bundle Plan DVT/Prophylaxis: mechanical, pharmacological
[2016-12-10 08:00] VITALS: BP 140/70
--- NOTE | 2016-12-10 09:59 | PN- CRCU ---
Subjective HPI/Critical Care Issues: The patient appears to be slightly more responsive today, noting he is opening his eyes to painful stimuli. His pupils are now bilaterally equal and reactive. EEG done yesterday showed severe anoxic encephalopathy. He remains off all sedation. His oxygen requirement has significantly improved, noting he is now down to 35%. He is hemodynamically stable off pressors. Objective Current Medications: Current Medications Sig/Silvana Start time Last Medication Dose Route Stop Time Status Admin Albuterol Sulfate 3 ML BID 12/09 1000 AC 12/10 INH 0828 Artificial Tears 2 GTT TID 12/09 220 AC 12/10 OPH 0913 Ceftazidime 2,000 MG Q12 12/08 2200 AC 12/10 Dextrose/Water 50 ML IV 0914 Heparin Sodium 5,000 UNIT Q8 12/08 1726 AC 12/10 (Porcine) SC 0538 Methylprednisolone 40 MG Q12 12/08 2200 AC 12/10 IV 0913 Norepinephrine 4 MG Q9H 12/09 0200 DC 12/09 Sodium Chloride 250 ML IV 0215 Pantoprazole Sodium 40 MG DAILY 12/08 1845 AC 12/10 IV 0913 Sodium Chloride 1,000 ML Q20H 12/09 1000 AC 12/10 IV 0918 Vancomycin HCl 1,000 MG 0500,1700 12/09 0500 AC 12/10 Sodium Chloride 250 ML IV 0536 Vital Signs & I&O Last 24 Hrs of Vitals and I&O: Vital Signs Date Time Temp Pulse Resp B/P B/P Pulse O2 O2 Flow FiO2 Mean Ox Delivery Rate 12/10 0802 35 12/10 0540 35 12/10 0400 93 Ventilator 35% 12/10 0353 35 12/10 0114 35 12/10 0000 97 Ventilator 35% 12/09 2310 35 12/09 2300 98.2 102 32 132/80 97 Ventilator 35% 12/09 2000 100 Ventilator 35% 12/09 1950 35 12/09 1600 35 12/09 1600 99 Ventilator 35% 12/09 1600 100.4 96 30 110/60 99 Ventilator 40% 12/09 1434 Ventilator 40% 12/09 1420 40 12/09 1231 40 12/09 1200 99 Ventilator 30% Intake & Output 12/10 1600 12/10 0800 12/10 0000 Intake Total 426 763 Output Total 615 490 Balance -189 273 Intake, IV 426 763 Number 0 0 Bowel Movements Output, 125 0 Gastric Drainage Output, Urine 490 490 Physical Exam General Appearance intubated, not purposeful Skin dry skin on bilateral lower extremities Skin Temp/Moisture Exam: Cool/Dry Sepsis Skin Exam (color): Mottled, Pale HEENT Atraumatic Cardiovascular Regular Rate, Normal S1, Normal S2 Lungs b/l ronchii and rales Abdomen Normal Bowel Sounds, Soft, No Tenderness Extremities Clubbing noted Results Last 24 Hrs of Lab Results: Laboratory Tests 12/10/16 0450: pH 7.37, pCO2 29 L, pO2 122 H, HCO3 17 L, ABG O2 Sat (Measured) 98.0, P-50 ( Temp Corrected) Y, Carboxyhemoglobin 0.3 L, O2 Concentration % 35%, Temperature 98.2, Respiration Rate 30, O2 Delivery Method ESPRIT, Vent Mode AC, Expiratory Pressure 5, Tidal Volume 500, Phlebotomy Draw Site RIGHT RADIAL 12/10/16 0355: Anion Gap 7, Estimated GFR > 60, Glucose 115 H, Calcium 6.4 L, Phosphorus 5.3 H, Magnesium 2.2, Total Bilirubin 0.1 L, AST 47, ALT 29, Albumin 1.6 L, CBC w Diff MAN DIFF ORDERED, RBC 3.38 L, MCV 81.6, MCH 26.6 L, RDW 18.2 H, MPV 6.6 L, Gran % 94.8 H, Lymphocytes % 3.9 L, Monocytes % 0.8 L, Eosinophils % 0.5, Basophils % 0 L, Absolute Granulocytes 25.6 H, Segmented Neutrophils 95 H, Band Neutrophils 2, Absolute Lymphocytes 1.0 L, Lymphocytes 2 L, Monocytes 1 L, Absolute Monocytes 0.2, Absolute Eosinophils 0.1, Absolute Basophils 0, Platelet Estimate INCREASED, Polychromasia 1+, Hypochromic-Microcytic 1+, Ovalocytes FEW, [place] Cells FEW, PUBS MCHC 32.5 L, Fld Total RBCs Counted 100 12/09/16 1810: Anion Gap 6, Estimated GFR > 60, Glucose 99, Calcium 6.4 L, Phosphorus 5.7 H, Magnesium 2.2, Total Bilirubin < 0.1 L, AST 48, ALT 35, Albumin 1.5 L 12/09/16 1800: CBC w Diff NO MAN DIFF REQ, RBC 3.20 L, MCV 80.6, MCH 26.6 L, RDW 17.8 H, MPV 6.7 L, Gran % 94.8 H, Lymphocytes % 3.3 L, Monocytes % 1.9, Eosinophils % 0, Basophils % 0 L, Absolute Granulocytes 24.4 H, Absolute Lymphocytes 0.9 L, Absolute Monocytes 0.5, Absolute Eosinophils 0, Absolute Basophils 0, PUBS MCHC 33.0 12/09/16 1200: pH 7.35, pCO2 28 L, pO2 110 H, HCO3 15 L, ABG O2 Sat (Measured) 97.0, P-50 ( Temp Corrected) N, Carboxyhemoglobin 0.9 L, O2 Concentration % 40%, Temperature 97.6, Respiration Rate 30, O2 Delivery Method VENT, Vent Mode VC-AC, Expiratory Pressure 5, Tidal Volume 550, Phlebotomy Draw Site RIGHT RADIAL Diagnostic Data CXR Findings: - Endotracheal tube tip is approximately 5.5 cm above the luis enrique in unchanged position. Orogastric tube projects below the diaphragm beyond the [id number]. - Slightly slightly improved pulmonary airspace opacities bilaterally. Redemonstrated small left pleural effusion. Impression/Plan Impression/Plan Impression/Plan: 1. Respiratory failure and Septic shock due to aspiration pneumonia, blood cultures are positive for GPC's and 1 of 2 sets. The patient continues to have metabolic acidosis on ABG. 2. Leukocytosis with bandemia shift secondary to aspiration pneumonia. 3. Status post cardiac arrest and CPR. 4. Probable anoxic brain injury. 5. Anemia of chronic disease, without active bleeding. 6. Recently diagnosed esophageal cancer - awaiting chemoradiation. 7. DEE - Cr improved. 8. History of nephrotic syndrome. 9. Protein calorie malnutrition. 10. Chronic pain with opiate dependency. 11. History of interstitial lung disease and ARDS secondary to chemical pneumonitis. 12. History of COPD, with 2 L home oxygen dependence. 13. Known diastolic heart failure. 14. Known history of hypertension. Recommendations: * Discontinue TLC catheter after ensuring adequate peripheral access. * Avoid sedating medications. * We will need to restart the patient on low-dose narcotics due to probable withdrawal in the setting of hypertension and tachycardia. We'll start morphine 2 mg every 4 PRN. * Increase tidal volume to 550 ML. Continue to monitor his airway pressures. * Decrease respiratory rate to 26 breaths per minute. * Check an ABG 2 hours after changes made. * Restart IV fluids as requested yesterday. Normal saline at 50 ML per hour. * Continue total respiratory care, and nebulizer treatments. * Continue IV Solu-Medrol every every 12 hours. * Nutrition consult for tube feeds. * Accu-Cheks to be monitored. * Continue vancomycin and ceftazidime pending final culture results. * Continue DVT/GI prophylaxis - ventilator bundle. * Follow up cardiology and neurology's recommendations. Appreciate input. * Continue all supportive care.
--- NOTE | 2016-12-10 10:56 | PN- Oncology ---
Subjective Subjective: He is doing better today. He is off pressors and only on 35% FiO2. He has no new issues. EEG demonstrated signs of sever anoxic encephalopathy. Review of Systems: Intubated and somnolent Objective Vital Signs and I&Os Vital Signs Date Time Temp Pulse Resp B/P B/P Pulse O2 O2 Flow FiO2 Mean Ox Delivery Rate 12/10 0802 35 12/10 0800 99.8 108 30 140/70 94 Ventilator 40% 12/10 0540 35 12/10 0400 93 Ventilator 35% 12/10 0353 35 12/10 0114 35 12/10 0000 97 Ventilator 35% 12/09 2310 35 12/09 2300 98.2 102 32 132/80 97 Ventilator 35% 12/09 2000 100 Ventilator 35% 12/09 1950 35 12/09 1600 35 12/09 1600 99 Ventilator 35% 12/09 1600 100.4 96 30 110/60 99 Ventilator 40% 12/09 1434 Ventilator 40% 12/09 1420 40 12/09 1231 40 12/09 1200 99 Ventilator 30% Intake & Output 12/10 1600 12/10 0800 12/10 0000 12/09 1600 12/09 0800 12/09 0000 Intake Total 426 580 196 9113 680 Output Total 615 490 450 950 930 Balance -189 273 92 127 -250 Intake, Blood 224 126 Product Intake, IV 426 763 442 853 554 Intake, Oral 0 Intake, Other 100 Number 0 0 0 0 0 Bowel Movements Output, 125 0 100 Gastric Drainage Output, Urine 490 490 450 850 930 Patient 83.518 kg 83.518 kg Weight Weight Bed scale Measurement Method Physical Exam: Gen.: in NAD, intubated, eyes open ENT: Sclera anicteric Chest: Decreased breath sounds Cor: RRR, no extra sounds Abdomen: Soft, bowel sounds present, no tenderness, no rebound Extremities: Without clubbing, cyanosis, or asymmetric edema Neurology: Responsive to painful stimuli Current Medications: Current Medications Sig/Silvana Start time Last Medication Dose Route Stop Time Status Admin Albuterol Sulfate 3 ML BID 12/09 1000 AC 12/10 INH 0828 Artificial Tears 2 GTT TID 12/09 2199 AC 12/10 OPH 0913 Ceftazidime 2,000 MG Q12 12/08 2199 AC 12/10 Dextrose/Water 50 ML IV 0914 Heparin Sodium 5,000 UNIT Q8 12/08 1726 12/10 (Porcine) SC 0538 Magnesium Sulfate 2 GM Q4 HRS NEEDED PRN 12/10 1015 UNVr Dextrose/Water 100 ML IV Methylprednisolone 40 MG Q12 12/08 2200 12/10 IV 0913 Norepinephrine 4 MG Q9H 12/09 0200 DC 12/09 Sodium Chloride 250 ML IV 0215 Pantoprazole Sodium 40 MG DAILY 12/08 1845 12/10 IV 0913 Sodium Chloride 1,000 ML Q20H 12/09 1000 AC 12/10 IV 0918 Vancomycin HCl 1,000 MG 0500,1700 12/09 0500 12/10 Sodium Chloride 250 ML IV 0536 Results Last 24 Hours of Lab Results: Laboratory Tests 12/10 12/10 0450 0355 Blood Gas pH (7.35 - 7.45 PH) 7.37 pCO2 (35 - 45 TORR) 29 L pO2 (80 - 100 TORR) 122 H HCO3 (21 - 28 MEQ/L) 17 L ABG O2 Sat (Measured) (>96.0 %) 98.0 P-50 (Temp Corrected) Y Carboxyhemoglobin (1.5 - 5.0 %) 0.3 L O2 Concentration % 35% Temperature (97.0 - 100.0 FARH) 98.2 Respiration Rate (BPM) 30 O2 Delivery Method ESPRIT Vent Mode AC Expiratory Pressure (CMH2O/P) 5 Tidal Volume (CC) 500 Chemistry Sodium (137 - 145 mmol/L) 137 Potassium (3.5 - 5.1 mmol/L) 4.4 Chloride (98 - 107 mmol/L) 112 H Carbon Dioxide (22 - 30 mmol/L) 18 L Anion Gap (5 - 16) 7 BUN (9 - 20 mg/dL) 21 H Creatinine (0.7 - 1.2 mg/dL) 1.1 Estimated GFR (>60 ml/min) > 60 Glucose (65 - 99 mg/dL) 115 H Calcium (8.4 - 10.2 mg/dL) 6.4 L Phosphorus (2.5 - 4.5 mg/dL) 5.3 H Magnesium (1.6 - 2.3 mg/dL) 2.2 Total Bilirubin (0.2 - 1.3 mg/dL) 0.1 L AST (17 - 59 U/L) 47 ALT (21 - 72 U/L) 29 Albumin (3.5 - 5.0 g/dL) 1.6 L Hematology CBC w Diff MAN DIFF ORDERED WBC (4.8 - 10.8 /CUMM) 27.0 H RBC (4.70 - 6.10 /CUMM) 3.38 L Hgb (14.0 - 18.0 G/DL) 9.0 L Hct (42 - 52 %) 27.6 L MCV (80.0 - 94.0 FL) 81.6 MCH (27.0 - 31.0 PG) 26.6 L RDW (11.5 - 14.5 %) 18.2 H Plt Count (130 - 400 /CUMM) 409 H MPV (7.4 - 10.4 FL) 6.6 L Gran % (42.2 - 75.2 %) 94.8 H Lymphocytes % (20.5 - 51.1 %) 3.9 L Monocytes % (1.7 - 9.3 %) 0.8 L Eosinophils % (0 - 5 %) 0.5 Basophils % (0.0 - 2.0 %) 0 L Absolute Granulocytes (1.4 - 6.5 /CUMM) 25.6 H Segmented Neutrophils (42.2 - 75.2 %) 95 H Band Neutrophils (0.0 - 5.0 %) 2 Absolute Lymphocytes (1.2 - 3.4 /CUMM) 1.0 L Lymphocytes (20.5 - 51.1 %) 2 L Monocytes (1.7 - 9.3 %) 1 L Absolute Monocytes (0.10 - 0.60 /CUMM) 0.2 Absolute Eosinophils (0.0 - 0.7 /CUMM) 0.1 Absolute Basophils (0.0 - 0.2 /CUMM) 0 Platelet Estimate (ADEQUATE) INCREASED Polychromasia 1+ Hypochromic-Microcytic 1+ Ovalocytes FEW [place] Cells FEW PUBS MCHC (33.0 - 37.0 G/DL) 32.5 L Miscellaneous Phlebotomy Draw Site RIGHT RADIAL Other Body Source Fld Total RBCs Counted (%) 100 12/09 12/09 1810 1800 Chemistry Sodium (137 - 145 mmol/L) 134 L Potassium (3.5 - 5.1 mmol/L) 4.6 Chloride (98 - 107 mmol/L) 111 H Carbon Dioxide (22 - 30 mmol/L) 16 L Anion Gap (5 - 16) 6 BUN (9 - 20 mg/dL) 18 Creatinine (0.7 - 1.2 mg/dL) 1.2 Estimated GFR (>60 ml/min) > 60 Glucose (65 - 99 mg/dL) 99 Calcium (8.4 - 10.2 mg/dL) 6.4 L Phosphorus (2.5 - 4.5 mg/dL) 5.7 H Magnesium (1.6 - 2.3 mg/dL) 2.2 Total Bilirubin (0.2 - 1.3 mg/dL) < 0.1 L AST (17 - 59 U/L) 48 ALT (21 - 72 U/L) 35 Albumin (3.5 - 5.0 g/dL) 1.5 L Hematology CBC w Diff NO MAN DIFF REQ WBC (4.8 - 10.8 /CUMM) 25.8 H RBC (4.70 - 6.10 /CUMM) 3.20 L Hgb (14.0 - 18.0 G/DL) 8.5 L Hct (42 - 52 %) 25.8 L MCV (80.0 - 94.0 FL) 80.6 MCH (27.0 - 31.0 PG) 26.6 L RDW (11.5 - 14.5 %) 17.8 H Plt Count (130 - 400 /CUMM) 341 MPV (7.4 - 10.4 FL) 6.7 L Gran % (42.2 - 75.2 %) 94.8 H Lymphocytes % (20.5 - 51.1 %) 3.3 L Monocytes % (1.7 - 9.3 %) 1.9 Eosinophils % (0 - 5 %) 0 Basophils % (0.0 - 2.0 %) 0 L Absolute Granulocytes (1.4 - 6.5 /CUMM) 24.4 H Absolute Lymphocytes (1.2 - 3.4 /CUMM) 0.9 L Absolute Monocytes (0.10 - 0.60 /CUMM) 0.5 Absolute Eosinophils (0.0 - 0.7 /CUMM) 0 Absolute Basophils (0.0 - 0.2 /CUMM) 0 PUBS MCHC (33.0 - 37.0 G/DL) 33.0 05/25 1200 Blood Gas pH (7.35 - 7.45 PH) 7.35 pCO2 (35 - 45 TORR) 28 L pO2 (80 - 100 TORR) 110 H HCO3 (21 - 28 MEQ/L) 15 L ABG O2 Sat (Measured) (>96.0 %) 97.0 P-50 (Temp Corrected) N Carboxyhemoglobin (1.5 - 5.0 %) 0.9 L O2 Concentration % 40% Temperature (97.0 - 100.0 FARH) 97.6 Respiration Rate (BPM) 30 O2 Delivery Method VENT Vent Mode VC-AC Expiratory Pressure (CMH2O/P) 5 Tidal Volume (CC) 550 Miscellaneous Phlebotomy Draw Site RIGHT RADIAL Recent Imaging Studies: EEG 12/09/2016: Burst/suppression pattern, often seen in severe anoxic encephalopathy, and usually associated with a poor prognosis Assessment/Plan Assessment/Recommendations: Mr. Monge is a 51-year-old male with T1N2 esophageal cancer pending combined modality therapy who presented to hospital after found to be unresponsive at home and cardiac arrested. He was resuscitated and is now intubated. His condition has improved with decreased oxygen requirement and off pressor support. He is still in critical condition. His esophageal cancer is locally advanced and is currently tentatively planned to undergo therapy for curative intent. Prognosis is poor currently. 1. Respiratory management as per ICU team 2. Antibiotics for presumed aspiration pneumonia Please call [phone] with any new issues or questions. Problem List: 1. Shock 2. Respiratory failure
--- NOTE | 2016-12-10 12:46 | PN- Cardiology ---
Subjective Subjective: The patient remains intubated. Hemodynamically stable off pressors. Opens eyes. No obvious meaningful response. Oxygen requirement improving. Cardiac status unchanged. Objective Vital Signs and I&Os Vital Signs Date Time Temp Pulse Resp B/P B/P Pulse O2 O2 Flow FiO2 Mean Ox Delivery Rate 12/10 1200 94 Ventilator 40% 12/10 1101 35 12/10 0802 35 12/10 0800 94 Ventilator 40% 12/10 0800 99.8 108 30 140/70 94 Ventilator 40% 12/10 0540 35 12/10 0400 93 Ventilator 35% 12/10 0353 35 12/10 0114 35 12/10 0000 97 Ventilator 35% 12/09 2310 35 12/09 2300 98.2 102 32 132/80 97 Ventilator 35% 12/09 2000 100 Ventilator 35% 12/09 1950 35 12/09 1600 35 12/09 1600 99 Ventilator 35% 12/09 1600 100.4 96 30 110/60 99 Ventilator 40% 12/09 1434 Ventilator 40% 12/09 1420 40 Intake & Output 12/10 1600 12/10 0800 12/10 0000 12/09 1600 12/09 0800 12/09 0000 Intake Total 426 959 592 7427 680 Output Total 615 490 450 950 930 Balance -189 273 92 127 -250 Intake, Blood 224 126 Product Intake, IV 426 763 442 853 554 Intake, Oral 0 Intake, Other 100 Number 0 0 0 0 0 Bowel Movements Output, 125 0 100 Gastric Drainage Output, Urine 490 490 450 850 930 Patient 184 lb 184 lb 184 lb Weight Weight Bed scale Measurement Method Physical Exam: General Appearance intubated, no purposeful responses. Vital signs improved. Skin normal HEENT Atraumatic; grossly normal Cardiovascular Regular Rate, Normal S1, Normal S2, 1/6 systolic murmur Lungs b/l ronchii and rales Abdomen Normal Bowel Sounds, Soft, No Tenderness Extremities Clubbing noted, bilateral edema with stasis changes Current Medications: Current Medications Sig/Silvana Start time Last Medication Dose Route Stop Time Status Admin Albuterol Sulfate 3 ML BID 12/09 1000 AC 12/10 INH 0828 Artificial Tears 2 GTT TID 12/09 2199 AC 12/10 OPH 0913 Ceftazidime 2,000 MG Q12 12/08 2199 AC 12/10 Dextrose/Water 50 ML IV 0914 Heparin Sodium 5,000 UNIT Q8 12/08 1726 12/10 (Porcine) SC 0538 Magnesium Sulfate 2 GM Q4 HRS NEEDED PRN 12/10 1015 CAN Dextrose/Water 100 ML IV Methylprednisolone 40 MG Q12 12/08 2200 12/10 IV 0913 Morphine Sulfate 2 MG Q4P PRN 12/10 1100 AC IV Pantoprazole Sodium 40 MG DAILY 12/08 1845 12/10 IV 0913 Sodium Chloride 1,000 ML Q20H 12/09 1000 AC 12/10 IV 0918 Vancomycin HCl 1,000 MG 0500,1700 12/09 0500 12/10 Sodium Chloride 250 ML IV 0536 Results Last 48 Hrs of Labs/Mics: Laboratory Tests 12/10/16 0450: pH 7.37, pCO2 29 L, pO2 122 H, HCO3 17 L, ABG O2 Sat (Measured) 98.0, P-50 ( Temp Corrected) Y, Carboxyhemoglobin 0.3 L, O2 Concentration % 35%, Temperature 98.2, Respiration Rate 30, O2 Delivery Method ESPRIT, Vent Mode AC, Expiratory Pressure 5, Tidal Volume 500, Phlebotomy Draw Site RIGHT RADIAL 12/10/16 0355: Anion Gap 7, Estimated GFR > 60, Glucose 115 H, Calcium 6.4 L, Phosphorus 5.3 H, Magnesium 2.2, Total Bilirubin 0.1 L, AST 47, ALT 29, Albumin 1.6 L, CBC w Diff MAN DIFF ORDERED, RBC 3.38 L, MCV 81.6, MCH 26.6 L, RDW 18.2 H, MPV 6.6 L, Gran % 94.8 H, Lymphocytes % 3.9 L, Monocytes % 0.8 L, Eosinophils % 0.5, Basophils % 0 L, Absolute Granulocytes 25.6 H, Segmented Neutrophils 95 H, Band Neutrophils 2, Absolute Lymphocytes 1.0 L, Lymphocytes 2 L, Monocytes 1 L, Absolute Monocytes 0.2, Absolute Eosinophils 0.1, Absolute Basophils 0, Platelet Estimate INCREASED, Polychromasia 1+, Hypochromic-Microcytic 1+, Ovalocytes FEW, [place] Cells FEW, PUBS MCHC 32.5 L, Fld Total RBCs Counted 100 12/09/16 1810: Anion Gap 6, Estimated GFR > 60, Glucose 99, Calcium 6.4 L, Phosphorus 5.7 H, Magnesium 2.2, Total Bilirubin < 0.1 L, AST 48, ALT 35, Albumin 1.5 L 12/09/16 1800: CBC w Diff NO MAN DIFF REQ, RBC 3.20 L, MCV 80.6, MCH 26.6 L, RDW 17.8 H, MPV 6.7 L, Gran % 94.8 H, Lymphocytes % 3.3 L, Monocytes % 1.9, Eosinophils % 0, Basophils % 0 L, Absolute Granulocytes 24.4 H, Absolute Lymphocytes 0.9 L, Absolute Monocytes 0.5, Absolute Eosinophils 0, Absolute Basophils 0, PUBS MCHC 33.0 12/09/16 1200: pH 7.35, pCO2 28 L, pO2 110 H, HCO3 15 L, ABG O2 Sat (Measured) 97.0, P-50 ( Temp Corrected) N, Carboxyhemoglobin 0.9 L, O2 Concentration % 40%, Temperature 97.6, Respiration Rate 30, O2 Delivery Method VENT, Vent Mode VC-AC, Expiratory Pressure 5, Tidal Volume 550, Phlebotomy Draw Site RIGHT RADIAL 12/09/16 0455: pH 7.29 *L, pCO2 34 L, pO2 101 H, HCO3 16 L, ABG O2 Sat (Measured) 97.0, P-50 (Temp Corrected) Y, Carboxyhemoglobin 0.9 L, O2 Concentration % 40%, Temperature 97.2, Respiration Rate 30, O2 Delivery Method ESPRIT, Vent Mode AC, Expiratory Pressure 5, Tidal Volume 500, Phlebotomy Draw Site RIGHT RADIAL 12/09/16 0446: Anion Gap 7, Estimated GFR 50 L, Glucose 81, Calcium 6.4 L, Phosphorus 5.9 H, Magnesium 2.0, Total Bilirubin 0.3, AST 61 H, ALT 42, Albumin 1.6 L, CBC w Diff MAN DIFF ORDERED, RBC 3.59 L, MCV 81.6, MCH 26.3 L, RDW 17.6 H, MPV 6.3 L, Gran % 95.4 H, Lymphocytes % 1.7 L, Monocytes % 2.9, Eosinophils % 0, Basophils % 0 L, Absolute Granulocytes 24.6 H, Segmented Neutrophils 82 H, Band Neutrophils 16 H, Absolute Lymphocytes 0.4 L, Lymphocytes 1 L, Monocytes 1 L, Absolute Monocytes 0.7 H, Absolute Eosinophils 0, Absolute Basophils 0, Platelet Estimate ADEQUATE, Polychromasia 1+, Hypochromic-Microcytic 1+, Poikilocytosis 1+, Ovalocytes 1+, PUBS MCHC 32.3 L, Fld Total RBCs Counted 100 12/09/16 0048: Anion Gap 6, Estimated GFR 46 L, Glucose 88, Calcium 6.3 L, Phosphorus 5.7 H, Magnesium 1.7, Total Bilirubin 0.5, AST 60 H, ALT 33, Troponin I 0.06, Albumin 1.5 L 12/08/160: pH 7.31 L, pCO2 31 L, pO2 70 L, HCO3 15 L, ABG O2 Sat (Measured) 94.0 L, P- 50 (Temp Corrected) Y, Carboxyhemoglobin 1.5, O2 Concentration % 40%, Temperature 96.0 L, Respiration Rate 30, O2 Delivery Method ESPRIT, Vent Mode AC, Expiratory Pressure 5, Tidal Volume 500, Phlebotomy Draw Site RIGHT RADIAL 12/08/162007: Anion Gap 5, Estimated GFR 43 L, Glucose 81, Calcium 5.7 *L, Phosphorus 5.4 H, Magnesium 1.6, Total Bilirubin < 0.1 L, AST 56, ALT 43, Troponin I 0.06, Albumin 1.5 L, PT 12.2, INR 1.16, CBC w Diff NO MAN DIFF REQ, RBC 3.15 L, MCV 80.6, MCH 25.8 L, RDW 18.2 H, MPV 5.8 L, Gran % 88.2 H, Lymphocytes % 5.2 L , Monocytes % 5.4, Eosinophils % 1.0, Basophils % 0.2, Absolute Granulocytes 11.1 H, Absolute Lymphocytes 0.7 L, Absolute Monocytes 0.7 H, Absolute Eosinophils 0.1, Absolute Basophils 0, PUBS MCHC 32.0 L 12/08/16 1856: Lactic Acid 1.6 12/08/16 1840: pH 7.24 *L, pCO2 37, pO2 92, HCO3 16 L, ABG O2 Sat (Measured) 94.0 L, P-50 ( Temp Corrected) N, Carboxyhemoglobin 2.4, O2 Concentration % 55%, Temperature 97.0, Respiration Rate 30, O2 Delivery Method ESPRIT VENT, Vent Mode AC, Expiratory Pressure 5, Tidal Volume 500, Phlebotomy Draw Site RIGHT RADIAL 12/08/16 170: Urinalysis LIGHT H, Urine Color YEL, Urine Clarity CLEAR, Urine pH 6.0, Ur Specific [place] 1.020, Urine Protein >=300 H, Urine Ketones NEG, Urine Nitrite NEG, Urine Bilirubin NEG, Urine Urobilinogen 0.2, Ur Leukocyte Esterase NEG, Ur Microscopic SEDIMENT EXAMINED, Urine RBC 3-5, Urine WBC 1-3 H, Ur Epithelial Cells FEW, Urine Bacteria MOD H, Hyaline Casts FEW H, Urine Mucus RARE, Urine Hemoglobin MOD H, Urine Glucose 100 H 12/08/16 1550: pH 7.15 *L, pCO2 47 H, pO2 90, HCO3 16 L, ABG O2 Sat (Measured) 91.0 L, P-50 (Temp Corrected) N, Carboxyhemoglobin 4.0, O2 Concentration % 55%, Temperature 97.0, Respiration Rate 24, O2 Delivery Method ESPRIT VENT, Vent Mode AC, Expiratory Pressure 5, Tidal Volume 500, Phlebotomy Draw Site RIGHT RADIAL 12/08/16 1524: Anion Gap 7, Estimated GFR 40 L, BUN/Creatinine Ratio 8.9, Glucose 148 H, Lactic Acid 4.8 H, Calcium 6.4 L, Phosphorus 7.3 H, Magnesium 2.0, Total Bilirubin < 0.1 L, AST 41, ALT 29, Alkaline Phosphatase 163 H, Troponin I 0.04 , Dia-D-Zaruqnuflvi Pept 6150 H, Total Protein 4.2 L, Albumin 1.5 L, Globulin 2.7, Albumin/Globulin Ratio 0.6 L, TSH 2.290, Free T4 0.84, Prolactin 19.0 H, D-Dimer 3199 H, CBC w Diff MAN DIFF ORDERED, RBC 3.15 L, MCV 81.4, MCH 25.9 L , RDW 17.8 H, MPV 6.0 L, Gran % 88.2 H, Lymphocytes % 7.0 L, Monocytes % 2.4 , Eosinophils % 2.3, Basophils % 0.1, Absolute Granulocytes 17.4 H, Segmented Neutrophils 60, Band Neutrophils 25 H, Absolute Lymphocytes 1.4, Lymphocytes 7 L, Monocytes 5, Absolute Monocytes 0.5, Eosinophils 2, Absolute Eosinophils 0.5, Absolute Basophils 0, Metamyelocytes 1, Platelet Estimate VERIFIED BY SMEAR, Normocytic RBCs VERIFIED, Normochromic RBCs VERIFIED, PUBS MCHC 31.8 L, Serum Alcohol < 10.0 12/08/16 1510: Urine Opiates Screen 919.00, Methadone Screen 82, Barbiturate Screen < 60, Ur Phencyclidine Scrn < 6.00, Amphetamines Screen 107, U Benzodiazepines Scrn < 85, Urine Cocaine Screen < 50, Urine Cannabis Screen < 5.00 Microbiology 12/08 1909 UPPER RESP: Surveillance Culture - COMP 12/08 1909 GI: Surveillance Culture - COMP 12/08 1708 URINE ROUT: Legionella Antigen - COMP 12/08 170 URINE ROUT: Streptococcus pneumoniae Antigen (M - COMP 12/08 1524 BLOOD: Blood Culture - COMP BETA STREP GROUP B 12/08 1510 URINE ROUT: Urine Culture - COMP Assessment/Plan Assessment/Plan Assessment: 1. S/P bradycardic cardiac arrest likley related to primary pulmonary event. 2. Acute respiratory failure with possible aspiration pneumonia 3. Shock 4. ILD 5. History of nephrotic syndrome. Recommendations: -For now, continue as per the critical care team. -The patient's heart rate and blood pressure mildly elevated today. Continue as per critical care. -Please note that the patient was on losartan preadmission. For now, I would not start any rate or blood pressure lowering medications view of the patient's clinical status. -Further plans pending Continue telemetry? Yes
[2016-12-10 16:00] VITALS: BP 130/70
[2016-12-10 23:55] VITALS: BP 144/76
[2016-12-11 04:32] LABS: ABSOLUTE BASOPHIL COUNT 0 /CUMM (0.0-0.2); ABSOLUTE EOSINOPHIL COUNT 0 /CUMM (0.0-0.7); ABSOLUTE GRANULOCYTE CT 13.5 /CUMM (1.4-6.5); ABSOLUTE LYMPH COUNT 0.9 /CUMM (1.2-3.4); ABSOLUTE MONOCYTE COUNT 0.3 /CUMM (0.10-0.60); BASOPHIL % 0 % (0.0-2.0); EOSINOPHIL % 0 % (0-5); HEMATOCRIT 26.1 % (42-52); MEAN CORPUSCULAR VOLUME 81.4 FL (80.0-94.0); MEAN PLATELET VOLUME 6.4 FL (7.4-10.4); PLATELET COUNT 377 /CUMM (130-400); RBC DISTRIBUTION WIDTH 18.4 % (11.5-14.5); RED BLOOD CELL CT 3.21 /CUMM (4.70-6.10)
[2016-12-11 05:02] LABS: WHITE BLOOD CELL COUNT 14.7 /CUMM (4.8-10.8)
[2016-12-11 08:00] VITALS: BP 148/80
--- NOTE | 2016-12-11 08:07 | PN- Resident CRCU ---
Subjective HPI/CRCU Issues: 1. Episode of unresponsive at home, possibly after seizure, EEG showing anoxic brain injury 2. Hypoxic respiratory failure possibly secondary to aspiration pneumonia 3. Septic shock 4. Status post cardiac arrest and CPR at home 5. CHF, chronic lower extremity edema 6. Anemia of chronic disease 7. Recently diagnosed esophageal adenocarcinoma 8. Chronic kidney disease, proteinuria Patient is intubated, responds to verbal and tactile stimuli, is able to follow some of the commands including blinking and moving his toes. 24 Hour Events: No overnight events per the night team and on the monitor. Max Temp 99.0 HR 76-92 BP 138/78 to 150/85 vent settings: rate 20/TV 550/ PEEP 5/ FiO2 80% this am (40% overnight) Urine output during the last shift: 60-80cc/hour, total output 600 cc, total intake 1131 cc Objective Vital Signs & I&O Last 8 Hrs of Vitals and I&O: Vital Signs Date Time Temp Pulse Resp B/P B/P Pulse O2 O2 Flow FiO2 Mean Ox Delivery Rate 12/11 0806 30 12/11 0557 30 12/11 0400 95 Ventilator 40% 12/11 0303 30 12/11 0059 30 12/11 0000 96 Ventilator 40% 12/10 2355 98.4 88 20 144/76 96 Ventilator 40% 12/10 2226 30 12/10 2001 30 12/10 2000 98 Ventilator 40% 12/10 1616 30 12/10 1600 96 Ventilator 40% 12/10 1600 98.0 94 18 130/70 96 Ventilator 40% 12/10 1458 30 12/10 1420 30 12/10 1200 94 Ventilator 40% 12/10 1101 35 Intake & Output 12/11 1600 12/11 0800 12/11 0000 Intake Total 1131 782 Output Total 600 550 Balance 531 232 Intake, IV 632 550 Intake, Tube 219 92 Feeding Intake, Tube 280 140 Irrigant Output, Urine 600 550 Exam General Appearance: well developed/nourished, intubated Head: atraumatic Neck: normal inspection Respiratory: breath sounds diminished, bilateral and diffuse wheezing and rhonchi is evident, no crackles. Cardiovascular: regular rate/rhythm Gastrointestinal: soft, non-tender Extremities: 1+ pitting edema in both lower extremities Cranial Nerves: hearing grossly intact, is able to open eyes when we called his name , blinks, moves toes and feet. Skin: warm/dry Current Medications: Current Medications Sig/Silvana Start time Last Medication Dose Route Stop Time Status Admin Albuterol Sulfate 3 ML BID 12/09 1000 AC 12/11 INH 0803 Artificial Tears 2 GTT TID 12/09 2200 AC 12/10 OPH 2125 Ceftazidime 2,000 MG Q12 12/08 2200 AC 12/10 Dextrose/Water 50 ML IV 2125 Furosemide 20 MG ONCE ONE 12/11 0900 UNVr IV PUSH 12/11 0901 Heparin Sodium 5,000 UNIT Q8 12/08 1726 AC 12/11 (Porcine) SC 0527 Lorazepam 2 MG ONE ONE 12/11 0430 DC 12/11 IV 12/11 0431 0428 Lorazepam 2 MG ONE ONE 12/10 1445 DC 12/10 IV 12/10 1446 1444 Magnesium Sulfate 2 GM Q4 HRS NEEDED PRN 12/10 1015 CAN Dextrose/Water 100 ML IV Methylprednisolone 40 MG Q12 12/08 2200 AC 12/10 IV 2125 Morphine Sulfate 2 MG Q4P PRN 12/10 1100 AC 12/10 IV 1100 Pantoprazole Sodium 40 MG DAILY 12/08 1845 AC 12/10 IV 0913 Sodium Chloride 1,000 ML Q20H 12/09 1000 DC 12/11 IV 0429 Vancomycin HCl 1,000 MG 0500,1700 12/09 0500 AC 12/11 Sodium Chloride 250 ML IV 0429 CXR Findings: SERVICE DATE: 12/11/16 EXAM TYPE: RAD - XRY-PORTABLE CHEST XRAY EXAMINATION: XR PORTABLE CHEST CLINICAL INFORMATION: ET tube position COMPARISON: Chest x-ray 12/10/2016 TECHNIQUE: Portable AP view of the chest was obtained. FINDINGS: There is an endotracheal tube which is positioned approximately 3.7 cm above the luis enrique. There is an enteric tube extending to the region of the stomach. The tip is not well delineated. There is hypoexpansion of the lungs. There are diffuse interstitial opacities throughout the lungs, unchanged. There is increasing subsegmental atelectasis/consolidation at the left lung base with probable small left pleural effusion. No other change. There is no pneumothorax. Severe degenerative changes are seen in the left shoulder with avascular necrosis, as previously. IMPRESSION: Endotracheal tube in place. No change in diffuse interstitial opacities throughout the lungs. Increasing atelectasis/consolidation and effusion at the left lung base. DICTATED BY: CARMENCITA LAZO MD DATE/TIME DICTATED:12/11/16803 MANAGER RECOVERY:LAURA DATE/TIME TRANSCRIBED:12/11/16803 Impression/Plan Impression/Problem List Impression: Mr. Monge is 51-year-old gentleman with past medical history significant for diastolic CHF, hypertension, COPD with 2 L home oxygen dependence, ILD, history of large with prolonged mechanical ventilation, CKD, neuropathy that presented to the emergency room via ambulance after family found him unresponsive. Patient went into cardiac arrest and bradycardia CPR was administered with 2 rounds of epinephrine, subsequently he had return of rhythm and pulses he was intubated and a right femoral central line was placed, Levothroid drip was started. Patient was admitted to ICU for close monitoring. Day 4 of being intubated Smith catheter day 4 Problem list: 1. Found unresponsive at home, possibly post seizure, EEG sugegsting severe anoxic encephalopathy 2. Hypoxic respiratory failure possibly secondary to aspiration pneumonia 3. Septic shock 4. Status post cardiac arrest and CPR at home 5. CHF, chronic lower extremity edema 6. Anemia of chronic disease 7. Recently diagnosed esophageal adenocarcinoma 8. Chronic kidney disease, proteinuria Respiratory * Continue Solu-Medrol IV every 12 * Mechanical ventilation, chest x-ray daily * Ventilation bundle ID Afebrile, WBC trending down: 14.7 from 27.0. CXR: No change in diffuse interstitial opacities throughout the lungs. Increasing atelectasis/ consolidation and effusion at the left lung base. * Continue ceftriaxone and vancomycin for aspiration pneumonia, recent history of hospitlization in september * 1 set of blood culture and sputum culture are positive for gram positive cocci in pairs and chains, continue to follow Cardiology Off Levofed, BP 144/76, CO in 70s-90s Removed central line (right femoral) today Monitor strict I&Os Echo 12/08/16: Abnormal septal motion. Normal left ventricular ejection fraction estimated at 55-60% * will follow cardiology recommentations * disconitnued IV fluids this am and gave one dose of IV lasix 20 mg due to edema (patient has CHF but also long standing proteinuria with hypoproteinemia) Neurology * Patient rsponds to verbal stimuli by opening eyes and follows a few commands * Neuro consult was placed and EEG was performed on 12/09 that sugegsted anoxic encephalopathy * 2 CT scans of head did not show acute changes Hematology oncology * Patient was recently diagnosed with esophageal cancer T1N2 (adenocarcinoma) * Oncology consultation was obtained, per Dr. Jung 'his esophageal cancer is locally advanced and is currently tentatively planned to undergo therapy for curative intent'. Metabolic * Repleting electrolytes as needed, today M.5, will monitor electrolytes and replete as needed Alimentary * Nothing by mouth * On tube feeding DVT prophylaxis heparin subcutaneous Code full Consultation cardiology, neuro Problem List: 1. CHF (congestive heart failure) 2. Esophageal cancer 3. Pneumonia 4. Aspiration pneumonia 5. Shock 6. Respiratory failure 7. COPD (chronic obstructive pulmonary disease) 8. Anemia 9. Malnutrition 10. Hyperlipidemia Pain Ratin Tomorrow's Labs & Rationales: CBC, ICU bundle (anemic, monitor electrolytes and kidney funciton) Plan DVT/Prophylaxis: mechanical, pharmacological
--- NOTE | 2016-12-11 08:14 | RADIOLOGY REPORT ---
EXAMINATION: XR PORTABLE CHEST CLINICAL INFORMATION: ET tube position COMPARISON: Chest x-ray 12/10/2016 TECHNIQUE: Portable AP view of the chest was obtained. FINDINGS: There is an endotracheal tube which is positioned approximately 3.7 cm above the luis enrique. There is an enteric tube extending to the region of the stomach. The tip is not well delineated. There is hypoexpansion of the lungs. There are diffuse interstitial opacities throughout the lungs, unchanged. There is increasing subsegmental atelectasis/consolidation at the left lung base with probable small left pleural effusion. No other change. There is no pneumothorax. Severe degenerative changes are seen in the left shoulder with avascular necrosis, as previously. IMPRESSION: Endotracheal tube in place. No change in diffuse interstitial opacities throughout the lungs. Increasing atelectasis/consolidation and effusion at the left lung base.
--- NOTE | 2016-12-11 10:16 | PN- CRCU ---
Subjective HPI/Critical Care Issues: Patient is intubated, responds to verbal and tactile stimuli, is able to follow some of the commands including blinking and moving his toes. 24 Hour Events: No overnight events per the night team and on the monitor. Max Temp 99.0 Objective Current Medications: Current Medications Sig/Silvana Start time Last Medication Dose Route Stop Time Status Admin Albuterol Sulfate 3 ML BID 12/09 1000 AC 12/11 INH 0803 Artificial Tears 2 GTT TID 12/09 220 AC 12/11 OPH 0927 Ceftazidime 2,000 MG Q12 12/08 2200 AC 12/11 Dextrose/Water 50 ML IV 0927 Furosemide 20 MG ONCE ONE 12/11 0900 DC 12/11 IV PUSH 12/11 0901 0927 Heparin Sodium 5,000 UNIT Q8 12/08 1726 AC 12/11 (Porcine) SC 0527 Lorazepam 2 MG ONE ONE 12/11 0430 DC 12/11 IV 12/11 0431 0428 Lorazepam 2 MG ONE ONE 12/10 1445 DC 12/10 IV 12/10 1446 1444 Magnesium Sulfate 2 GM Q4 HRS NEEDED PRN 12/10 1015 CAN Dextrose/Water 100 ML IV Methylprednisolone 40 MG Q12 12/08 2200 AC 12/11 IV 0927 Morphine Sulfate 2 MG Q4P PRN 12/10 1100 AC 12/10 IV 1100 Pantoprazole Sodium 40 MG DAILY 12/08 1845 AC 12/11 IV 0927 Sodium Chloride 1,000 ML Q20H 12/09 1000 DC 12/11 IV 0429 Vancomycin HCl 1,000 MG 0500,1700 12/09 0500 AC 12/11 Sodium Chloride 250 ML IV 0429 Laboratory Tests 12/11 12/11 0550 0355 Blood Gas pH (7.35 - 7.45 PH) 7.38 pCO2 (35 - 45 TORR) 30 L pO2 (80 - 100 TORR) 105 H HCO3 (21 - 28 MEQ/L) 17 L ABG O2 Sat (Measured) (>96.0 %) 97.0 P-50 (Temp Corrected) N Carboxyhemoglobin (1.5 - 5.0 %) 0.2 L O2 Concentration % .30 Respiration Rate (BPM) 20 O2 Delivery Method VENT Vent Mode A/C Expiratory Pressure (CMH2O/P) 5 Tidal Volume (CC) 550 Chemistry Sodium (137 - 145 mmol/L) 139 Potassium (3.5 - 5.1 mmol/L) 4.4 Chloride (98 - 107 mmol/L) 116 H Carbon Dioxide (22 - 30 mmol/L) 18 L Anion Gap (5 - 16) 5 BUN (9 - 20 mg/dL) 26 H Creatinine (0.7 - 1.2 mg/dL) 1.0 Estimated GFR (>60 ml/min) > 60 Glucose (65 - 99 mg/dL) 119 H Calcium (8.4 - 10.2 mg/dL) 6.6 L Phosphorus (2.5 - 4.5 mg/dL) 4.4 Magnesium (1.6 - 2.3 mg/dL) 2.5 H Total Bilirubin (0.2 - 1.3 mg/dL) < 0.1 L AST (17 - 59 U/L) 34 ALT (21 - 72 U/L) 37 Albumin (3.5 - 5.0 g/dL) 1.7 L Hematology CBC w Diff NO MAN DIFF REQ WBC (4.8 - 10.8 /CUMM) 14.7 H RBC (4.70 - 6.10 /CUMM) 3.21 L Hgb (14.0 - 18.0 G/DL) 8.4 L Hct (42 - 52 %) 26.1 L MCV (80.0 - 94.0 FL) 81.4 MCH (27.0 - 31.0 PG) 26.0 L RDW (11.5 - 14.5 %) 18.4 H Plt Count (130 - 400 /CUMM) 377 MPV (7.4 - 10.4 FL) 6.4 L Gran % (42.2 - 75.2 %) 92.0 H Lymphocytes % (20.5 - 51.1 %) 6.1 L Monocytes % (1.7 - 9.3 %) 1.9 Eosinophils % (0 - 5 %) 0 Basophils % (0.0 - 2.0 %) 0 L Absolute Granulocytes (1.4 - 6.5 /CUMM) 13.5 H Absolute Lymphocytes (1.2 - 3.4 /CUMM) 0.9 L Absolute Monocytes (0.10 - 0.60 /CUMM) 0.3 Absolute Eosinophils (0.0 - 0.7 /CUMM) 0 Absolute Basophils (0.0 - 0.2 /CUMM) 0 PUBS MCHC (33.0 - 37.0 G/DL) 32.0 L Miscellaneous Phlebotomy Draw Site RIGHT RADIAL 12/10 12/10 1325 0450 Blood Gas pH (7.35 - 7.45 PH) 7.39 7.37 pCO2 (35 - 45 TORR) 30 L 29 L pO2 (80 - 100 TORR) 130 H 122 H HCO3 (21 - 28 MEQ/L) 18 L 17 L ABG O2 Sat (Measured) (>96.0 %) 98.0 98.0 P-50 (Temp Corrected) N Y Carboxyhemoglobin (1.5 - 5.0 %) 0.3 L 0.3 L O2 Concentration % 35% 35% Temperature (97.0 - 100.0 FARH) 98.2 Respiration Rate (BPM) 26 30 O2 Delivery Method VENT ESPRIT Vent Mode AC AC Expiratory Pressure (CMH2O/P) 5 5 Tidal Volume (CC) 550 500 Pressure Support (CMH2O/P) 0 Miscellaneous Phlebotomy Draw Site RIGHT RADIAL RIGHT RADIAL 12/10 12/09 0355 1810 Chemistry Sodium (137 - 145 mmol/L) 137 134 L Potassium (3.5 - 5.1 mmol/L) 4.4 4.6 Chloride (98 - 107 mmol/L) 112 H 111 H Carbon Dioxide (22 - 30 mmol/L) 18 L 16 L Anion Gap (5 - 16) 7 6 BUN (9 - 20 mg/dL) 21 H 18 Creatinine (0.7 - 1.2 mg/dL) 1.1 1.2 Estimated GFR (>60 ml/min) > 60 > 60 Glucose (65 - 99 mg/dL) 115 H 99 Calcium (8.4 - 10.2 mg/dL) 6.4 L 6.4 L Phosphorus (2.5 - 4.5 mg/dL) 5.3 H 5.7 H Magnesium (1.6 - 2.3 mg/dL) 2.2 2.2 Total Bilirubin (0.2 - 1.3 mg/dL) 0.1 L < 0.1 L AST (17 - 59 U/L) 47 48 ALT (21 - 72 U/L) 29 35 Albumin (3.5 - 5.0 g/dL) 1.6 L 1.5 L Hematology CBC w Diff MAN DIFF ORDERED WBC (4.8 - 10.8 /CUMM) 27.0 H RBC (4.70 - 6.10 /CUMM) 3.38 L Hgb (14.0 - 18.0 G/DL) 9.0 L Hct (42 - 52 %) 27.6 L MCV (80.0 - 94.0 FL) 81.6 MCH (27.0 - 31.0 PG) 26.6 L RDW (11.5 - 14.5 %) 18.2 H Plt Count (130 - 400 /CUMM) 409 H MPV (7.4 - 10.4 FL) 6.6 L Gran % (42.2 - 75.2 %) 94.8 H Lymphocytes % (20.5 - 51.1 %) 3.9 L Monocytes % (1.7 - 9.3 %) 0.8 L Eosinophils % (0 - 5 %) 0.5 Basophils % (0.0 - 2.0 %) 0 L Absolute Granulocytes (1.4 - 6.5 /CUMM) 25.6 H Segmented Neutrophils (42.2 - 75.2 %) 95 H Band Neutrophils (0.0 - 5.0 %) 2 Absolute Lymphocytes (1.2 - 3.4 /CUMM) 1.0 L Lymphocytes (20.5 - 51.1 %) 2 L Monocytes (1.7 - 9.3 %) 1 L Absolute Monocytes (0.10 - 0.60 /CUMM) 0.2 Absolute Eosinophils (0.0 - 0.7 /CUMM) 0.1 Absolute Basophils (0.0 - 0.2 /CUMM) 0 Platelet Estimate (ADEQUATE) INCREASED Polychromasia 1+ Hypochromic-Microcytic 1+ Ovalocytes FEW [place] Cells FEW PUBS MCHC (33.0 - 37.0 G/DL) 32.5 L Other Body Source Fld Total RBCs Counted (%) 100 05/25 05/25 1800 1200 Blood Gas pH (7.35 - 7.45 PH) 7.35 pCO2 (35 - 45 TORR) 28 L pO2 (80 - 100 TORR) 110 H HCO3 (21 - 28 MEQ/L) 15 L ABG O2 Sat (Measured) (>96.0 %) 97.0 P-50 (Temp Corrected) N Carboxyhemoglobin (1.5 - 5.0 %) 0.9 L O2 Concentration % 40% Temperature (97.0 - 100.0 FARH) 97.6 Respiration Rate (BPM) 30 O2 Delivery Method VENT Vent Mode VC-AC Expiratory Pressure (CMH2O/P) 5 Tidal Volume (CC) 550 Hematology CBC w Diff NO MAN DIFF REQ WBC (4.8 - 10.8 /CUMM) 25.8 H RBC (4.70 - 6.10 /CUMM) 3.20 L Hgb (14.0 - 18.0 G/DL) 8.5 L Hct (42 - 52 %) 25.8 L MCV (80.0 - 94.0 FL) 80.6 MCH (27.0 - 31.0 PG) 26.6 L RDW (11.5 - 14.5 %) 17.8 H Plt Count (130 - 400 /CUMM) 341 MPV (7.4 - 10.4 FL) 6.7 L Gran % (42.2 - 75.2 %) 94.8 H Lymphocytes % (20.5 - 51.1 %) 3.3 L Monocytes % (1.7 - 9.3 %) 1.9 Eosinophils % (0 - 5 %) 0 Basophils % (0.0 - 2.0 %) 0 L Absolute Granulocytes (1.4 - 6.5 /CUMM) 24.4 H Absolute Lymphocytes (1.2 - 3.4 /CUMM) 0.9 L Absolute Monocytes (0.10 - 0.60 /CUMM) 0.5 Absolute Eosinophils (0.0 - 0.7 /CUMM) 0 Absolute Basophils (0.0 - 0.2 /CUMM) 0 PUBS MCHC (33.0 - 37.0 G/DL) 33.0 Miscellaneous Phlebotomy Draw Site RIGHT RADIAL Microbiology Date/Time Procedure - Status Source Growth 12/08 1909 Surveillance Culture - COMP UPPER RESP 12/08 1909 Surveillance Culture - COMP GI 12/08 1709 Legionella Antigen - COMP URINE ROUT 12/08 1709 Streptococcus pneumoniae Antigen (M - COMP URINE ROUT 12/08 1616 Blood Culture - RES BLOOD 12/08 1600 Respiratory Culture - RES LOWER RESP BETA STREP GROUP B STAPH AUREUS YEAST 12/08 1600 Gram Stain - RES LOWER RESP 12/08 1524 Blood Culture - COMP BLOOD BETA STREP GROUP B 12/08 1510 Urine Culture - COMP URINE ROUT Vital Signs & I&O Last 24 Hrs of Vitals and I&O: Vital Signs Date Time Temp Pulse Resp B/P B/P Pulse O2 O2 Flow FiO2 Mean Ox Delivery Rate 12/11 0806 30 12/11 0557 30 12/11 0400 95 Ventilator 40% 12/11 0303 30 12/11 0059 30 12/11 0000 96 Ventilator 40% 12/10 2355 98.4 88 20 144/76 96 Ventilator 40% 12/10 2226 30 12/10 2001 12/10 2000 98 Ventilator 40% 12/10 1616 30 12/10 1600 96 Ventilator 40% 12/10 1600 98.0 94 18 130/70 96 Ventilator 40% 12/10 1458 30 12/10 1420 30 12/10 1200 94 Ventilator 40% 12/10 1101 35 Intake & Output 12/11 0800 12/11 0000 Intake Total 1131 782 Output Total 600 550 Balance 531 232 Intake, IV 632 550 Intake, Tube 219 92 Feeding Intake, Tube 280 140 Irrigant Output, Urine 600 550 Impression/Plan Impression/Plan Impression/Plan: Physical Exam General Appearance intubated, not purposeful Skin dry skin on bilateral lower extremities Skin Temp/Moisture Exam: Cool/Dry Sepsis Skin Exam (color): Mottled, Pale HEENT Atraumatic Cardiovascular Regular Rate, Normal S1, Normal S2 Lungs b/l ronchii and rales Abdomen Normal Bowel Sounds, Soft, No Tenderness Extremities Clubbing noted IMPRESSION * Respiratory failure and Septic shock due to aspiration pneumonia, blood cultures are positive for strep b. * Leukocytosis with bandemia shift secondary to aspiration pneumonia with strep and staph * Atx and consolidation of lll * Status post cardiac arrest and CPR. * Probable anoxic brain injury. * Anemia of chronic disease, without active bleeding. * Recently diagnosed esophageal cancer - awaiting chemoradiation. * DEE - Cr improved. * History of nephrotic syndrome. * Protein calorie malnutrition. * Chronic pain with opiate dependency. * History of interstitial lung disease and ARDS secondary to chemical pneumonitis. * History of COPD, with 2 L home oxygen dependence. * Known diastolic heart failure. * Known history of hypertension. REC COnt all meds COnt steroids and abx nebs daily lasix COnt ppi and heparin Avoid sedation Will change abx depending on the culture results in am Pt is critically ill TTS 45 mins
--- NOTE | 2016-12-11 13:16 | PN- Cardiology ---
Subjective Subjective: Clinically about the same. Remains intubated but appears more responsive today. Objective Vital Signs and I&Os Vital Signs Date Time Temp Pulse Resp B/P B/P Pulse O2 O2 Flow FiO2 Mean Ox Delivery Rate 12/11 1200 96 Ventilator 40% 12/11 1118 30 12/11 0806 30 12/11 0800 97 Ventilator 40% 12/11 0800 97.9 77 18 148/80 97 Ventilator 40% 12/11 0557 12/11 0400 95 Ventilator 40% 12/11 0303 30 12/11 0059 30 12/11 0000 96 Ventilator 40% 12/10 2355 98.4 88 20 144/76 96 Ventilator 40% 12/10 2226 30 12/10 2001 12/10 98 Ventilator 40% 12/10 1616 30 12/10 1600 96 Ventilator 40% 12/10 1600 98.0 94 18 130/70 96 Ventilator 40% 12/10 1458 30 12/10 1420 30 Intake & Output 12/11 1600 12/11 0800 12/11 0000 12/10 1600 12/10 0800 12/10 0000 Intake Total 1131 782 450 426 763 Output Total 600 550 450 615 490 Balance 531 232 0 -189 273 Intake, IV 632 550 450 426 763 Intake, Oral 0 Intake, Tube 219 92 Feeding Intake, Tube 280 140 Irrigant Number 0 0 0 Bowel Movements Output, 125 0 Gastric Drainage Output, Urine 600 550 450 490 490 Patient 184 lb Weight Physical Exam: General Appearance intubated, somewhat more alert and responsive. Vital signs improved. Skin normal HEENT Atraumatic; grossly normal Cardiovascular Regular Rate, Normal S1, Normal S2, 1/6 systolic murmur Lungs b/l ronchii and rales Abdomen Normal Bowel Sounds, Soft, No Tenderness Extremities Clubbing noted, bilateral edema with stasis changes Current Medications: Current Medications Sig/Silvana Start time Last Medication Dose Route Stop Time Status Admin Albuterol Sulfate 3 ML BID 12/09 1000 AC 12/11 INH 0803 Artificial Tears 2 GTT TID 12/09 2199 AC 12/11 OPH 0927 Ceftazidime 2,000 MG Q12 12/08 2199 AC 12/11 Dextrose/Water 50 ML IV 0927 Furosemide 20 MG ONCE ONE 12/11 0900 DC 12/11 IV PUSH 12/11 0901 0927 Heparin Sodium 5,000 UNIT Q8 12/08 1726 AC 12/11 (Porcine) SC 05 Lorazepam 2 MG ONE ONE 12/11 0430 DC 12/11 IV 12/11 0431 0428 Lorazepam 2 MG ONE ONE 12/10 1445 DC 12/10 IV 12/10 1446 1444 Methylprednisolone 40 MG Q12 12/08 2200 AC 12/11 IV 0927 Morphine Sulfate 2 MG Q4P PRN 12/10 1100 AC 12/10 IV 1100 Pantoprazole Sodium 40 MG DAILY 12/08 1845 AC 12/11 IV 0927 Sodium Chloride 1,000 ML Q20H 12/09 1000 DC 12/11 IV 0429 Vancomycin HCl 1,000 MG 0500,1700 12/09 0500 AC 12/11 Sodium Chloride 250 ML IV 042 Results Last 48 Hrs of Labs/Mics: Laboratory Tests 12/11/16 0550: pH 7.38, pCO2 30 L, pO2 105 H, HCO3 17 L, ABG O2 Sat (Measured) 97.0, P-50 ( Temp Corrected) N, Carboxyhemoglobin 0.2 L, O2 Concentration % .30, Respiration Rate 20, O2 Delivery Method VENT, Vent Mode A/C, Expiratory Pressure 5, Tidal Volume 550, Phlebotomy Draw Site RIGHT RADIAL 12/11/16 0355: Anion Gap 5, Estimated GFR > 60, Glucose 119 H, Calcium 6.6 L, Phosphorus 4.4, Magnesium 2.5 H, Total Bilirubin < 0.1 L, AST 34, ALT 37, Albumin 1.7 L, CBC w Diff NO MAN DIFF REQ, RBC 3.21 L, MCV 81.4, MCH 26.0 L, RDW 18.4 H, MPV 6.4 L, Gran % 92.0 H, Lymphocytes % 6.1 L, Monocytes % 1.9, Eosinophils % 0, Basophils % 0 L, Absolute Granulocytes 13.5 H, Absolute Lymphocytes 0.9 L, Absolute Monocytes 0.3, Absolute Eosinophils 0, Absolute Basophils 0, PUBS MCHC 32.0 L 12/10/16 1325: pH 7.39, pCO2 30 L, pO2 130 H, HCO3 18 L, ABG O2 Sat (Measured) 98.0, P-50 ( Temp Corrected) N, Carboxyhemoglobin 0.3 L, O2 Concentration % 35%, Respiration Rate 26, O2 Delivery Method VENT, Vent Mode AC, Expiratory Pressure 5, Tidal Volume 550, Pressure Support 0, Phlebotomy Draw Site RIGHT RADIAL 12/10/16 0450: pH 7.37, pCO2 29 L, pO2 122 H, HCO3 17 L, ABG O2 Sat (Measured) 98.0, P-50 ( Temp Corrected) Y, Carboxyhemoglobin 0.3 L, O2 Concentration % 35%, Temperature 98.2, Respiration Rate 30, O2 Delivery Method ESPRIT, Vent Mode AC, Expiratory Pressure 5, Tidal Volume 500, Phlebotomy Draw Site RIGHT RADIAL 12/10/16 0355: Anion Gap 7, Estimated GFR > 60, Glucose 115 H, Calcium 6.4 L, Phosphorus 5.3 H, Magnesium 2.2, Total Bilirubin 0.1 L, AST 47, ALT 29, Albumin 1.6 L, CBC w Diff MAN DIFF ORDERED, RBC 3.38 L, MCV 81.6, MCH 26.6 L, RDW 18.2 H, MPV 6.6 L, Gran % 94.8 H, Lymphocytes % 3.9 L, Monocytes % 0.8 L, Eosinophils % 0.5, Basophils % 0 L, Absolute Granulocytes 25.6 H, Segmented Neutrophils 95 H, Band Neutrophils 2, Absolute Lymphocytes 1.0 L, Lymphocytes 2 L, Monocytes 1 L, Absolute Monocytes 0.2, Absolute Eosinophils 0.1, Absolute Basophils 0, Platelet Estimate INCREASED, Polychromasia 1+, Hypochromic-Microcytic 1+, Ovalocytes FEW, [place] Cells FEW, PUBS MCHC 32.5 L, Fld Total RBCs Counted 100 12/09/16 1810: Anion Gap 6, Estimated GFR > 60, Glucose 99, Calcium 6.4 L, Phosphorus 5.7 H, Magnesium 2.2, Total Bilirubin < 0.1 L, AST 48, ALT 35, Albumin 1.5 L 12/09/16 1800: CBC w Diff NO MAN DIFF REQ, RBC 3.20 L, MCV 80.6, MCH 26.6 L, RDW 17.8 H, MPV 6.7 L, Gran % 94.8 H, Lymphocytes % 3.3 L, Monocytes % 1.9, Eosinophils % 0, Basophils % 0 L, Absolute Granulocytes 24.4 H, Absolute Lymphocytes 0.9 L, Absolute Monocytes 0.5, Absolute Eosinophils 0, Absolute Basophils 0, PUBS MCHC 33.0 Assessment/Plan Assessment/Plan Assessment: 1. S/P bradycardic cardiac arrest juan f related to primary pulmonary event. 2. Acute respiratory failure with possible aspiration pneumonia 3. Shock 4. ILD 5. History of nephrotic syndrome. Recommendations: -For now, continue as per the critical care team. -The patient's heart rate and blood pressure are somewhat better today. Continue as per critical care. -Please note that the patient was on losartan preadmission. For now, I would not start any rate or blood pressure lowering medications view of the patient's clinical status. -Further plans pending Continue telemetry? Yes
[2016-12-11 16:00] VITALS: BP 150/80
[2016-12-12] VITALS: BP 156/80
[2016-12-12 06:21] LABS: ABSOLUTE EOSINOPHIL COUNT 0 /CUMM (0.0-0.7); ABSOLUTE GRANULOCYTE CT 9.5 /CUMM (1.4-6.5); ABSOLUTE LYMPH COUNT 0.9 /CUMM (1.2-3.4); ABSOLUTE MONOCYTE COUNT 0.4 /CUMM (0.10-0.60); BASOPHIL % 0 % (0.0-2.0); EOSINOPHIL % 0 % (0-5); GRANULOCYTE % 87.8 % (42.2-75.2); MEAN CORPUSCULAR HGB 26.4 PG (27.0-31.0); MEAN CORPUSCULAR HGB CONC 32.7 G/DL (33.0-37.0); MEAN CORPUSCULAR VOLUME 80.6 FL (80.0-94.0); MEAN PLATELET VOLUME 6.6 FL (7.4-10.4); PLATELET COUNT 331 /CUMM (130-400); RED BLOOD CELL CT 3.27 /CUMM (4.70-6.10); WHITE BLOOD CELL COUNT 10.8 /CUMM (4.8-10.8)
[2016-12-12 06:55] LABS: HEMATOCRIT 26.4 % (42-52)
--- NOTE | 2016-12-12 07:57 | RADIOLOGY REPORT ---
EXAMINATION: XR PORTABLE CHEST CLINICAL INFORMATION: Intubated with sepsis. COMPARISON: 12/11/2016. TECHNIQUE: Portable frontal view of the chest was obtained. FINDINGS: Tip of endotracheal tube is 7 cm above the luis enrique. Nasogastric tube is below the diaphragm in the stomach. There is diffuse interstitial changes throughout both lungs. There is probable subsegmental atelectasis left lung base retrocardiac region. Suspect small left pleural effusion as well. Heart size is borderline enlarged. Pulmonary vascularity is normal. No gross bony abnormality. IMPRESSION: Support lines and catheters are in satisfactory position. No significant change in diffuse interstitial opacities in both lungs.
--- NOTE | 2016-12-12 08:34 | PN- Resident CRCU ---
Subjective HPI/CRCU Issues: 1. Episode of unresponsive at home, possibly after seizure, EEG showing anoxic brain injury 2. Hypoxic respiratory failure possibly secondary to aspiration pneumonia 3. Septic shock 4. Status post cardiac arrest and CPR at home 5. CHF, chronic lower extremity edema 6. Anemia of chronic disease 7. Recently diagnosed esophageal adenocarcinoma 8. Chronic kidney disease, proteinuria Patient was seen and examined this morning, intubated, not sedated, responding to painful stimuli by left leg flexion. No overnight events reported by the nurse. 24 Hour Events: Temperature 97.2, MAXIMUM TEMPERATURE 99.4 Pulse 64, highest 86 sinus rhythm Blood pressure lowest 143/81, highest 165/87 Intake 3270, output 4835 AC 550/20/5/30% saturating 94% Objective Vital Signs & I&O Last 8 Hrs of Vitals and I&O: Intake & Output 12/12 1600 Intake Total 1160 Output Total 700 Balance 460 Intake, IV 100 Intake, Oral 0 Intake, Tube 720 Feeding Intake, Tube 340 Irrigant Output, Urine 700 Exam General Appearance: intubated Head: atraumatic Ears, Nose, Throat: normal pharynx Neck: normal inspection, supple, full range of motion Respiratory: chest non-tender Cardiovascular: regular rate/rhythm Gastrointestinal: normal bowel sounds, soft, non-tender Extremities: normal capillary refill, BLLE pedal edema Cranial Nerves: PERRL Current Medications: Current Medications Sig/Silvana Start time Last Medication Dose Route Stop Time Status Admin Albuterol Sulfate 3 ML BID 12/09 1000 AC 12/12 INH 0837 Artificial Tears 2 GTT TID 12/09 2200 AC 12/12 OPH 1542 Cefazolin Sodium 1,000 MG IQ8 12/13 0000 AC IV Ceftazidime 2,000 MG Q12 12/08 2200 IN 12/12 Dextrose/Water 50 ML IV 0936 Furosemide 20 MG ONCE ONE 12/12 1645 DC 12/12 IV 12/12 1646 1646 Heparin Sodium 5,000 UNIT Q8 12/08 1726 AC 12/12 (Porcine) SC 1356 Insulin Human Regular 0 Q6 12/12 0838 AC 12/12 SC 1136 Lorazepam 2 MG Q4P PRN 12/12 0845 DC 12/12 IV 0852 Lorazepam 2 MG ONE ONE 12/12 0300 DC 12/12 IV 12/12 0301 0315 Lorazepam 2 MG ONE TIME ONE 12/11 2200 DC IV 12/11 2201 Methylprednisolone 40 MG DAILY 12/13 1000 AC IV Methylprednisolone 40 MG Q12 12/08 2200 DC 12/12 IV 0937 Morphine Sulfate 2 MG Q4P PRN 12/10 1100 AC 12/12 IV 1644 Pantoprazole Sodium 40 MG DAILY 12/08 1845 AC 12/12 IV 0902 Phosphate 250 MG ONCE ONE 12/12 0845 DC 12/12 PO 12/12 0846 0936 Vancomycin HCl 1,000 MG 0500,1700 12/09 0500 DC 12/12 Sodium Chloride 250 ML IV 1632 Impression/Plan Impression/Problem List Impression: Mr. Monge is 51-year-old gentleman with past medical history significant for diastolic CHF, hypertension, COPD with 2 L home oxygen dependence, ILD, history of large with prolonged mechanical ventilation, CKD, neuropathy that presented to the emergency room via ambulance after family found him unresponsive. Patient went into cardiac arrest and bradycardia CPR was administered with 2 rounds of epinephrine, subsequently he had return of rhythm and pulses he was intubated and a right femoral central line was placed, Levothroid drip was started. Patient was admitted to ICU for close monitoring. Problem list: #Acute hypoxic respiratory failure secondary to aspiration pneumonia #Septic shock #Status post cardiac arrest and CPR #Anemia of chronic disease #Recently diagnosed esophageal cancer #Acute kidney injury Cardiology -Off Levofed -Blood pressure and heart rate are stable -Continue morphine 2 mg every 4 when necessary for opioid withdrawl -Cardio consultation was placed, waiting for evaluation -Echo 12/08/16 CONCLUSIONS 1. This was a technically difficult study due to the patient's body habitus and clinical status. 2. Minimal to mild aortic sclerosis is present with no valvular stenosis or insufficiency. 3. Mitral leaflet thickeining is present with mild anular calcification and mild mitral insufficiency. 4. A very small pericardial effusion is present. 5. The left ventricular chamber size is normal with an ejection fraction of 55- 60%. Abnormal septal motion is present suggestive of the presence of pulmonary hypertension. 6. The right heart structures were not optimally visualized. Mild tricuspid insufficiency is present but the RV systolic pressure was not accurately assessed. ID -Switch antibiotic to cefazolin -Discontinue ceftriaxone and vancomycin for aspiration pneumonia, recent history of hospitlization in september -Afubrile -1 set of blood culture and sputum culture are positive for methicillin sensitive staph aureus Respiratory -Decrease Solu-Medrol to 40 IV daily -Mechanical ventilation FiO2 30%, PEEP of 5 saturating well, chest x-ray daily -Ventilation bundle Neurology -Neuro consultation was placed -EEG 12/09 Impression: Burst/suppression pattern, often seen in severe anoxic encephalopathy, and usually associiated with a poor prognosis -2 CT scans head did not show acute changes -Guarding prognosis Hematology oncology -Patient was recently diagnosed with esophageal cancer T1N2 -Oncology consultation was obtained, thanks for recommendation Metabolic -Replete electrolytes as needed Alimentary -Nothing by mouth -Nutrition consultation was obtained for tube feeding DVT prophylaxis heparin subcutaneous Code full Consultation cardiology, neuro Problem List: 1. Esophageal cancer 2. Septic shock Pain Ratin Tomorrow's Labs & Rationales: ICU bundle, CBC Plan DVT/Prophylaxis: mechanical, pharmacological
[2016-12-12 09:03] VITALS: BP 124/70
--- NOTE | 2016-12-12 10:09 | PN- CRCU ---
Subjective HPI/Critical Care Issues: No significant change since yesterday. Has not improved with his mental status No history could be of pain Intubated not on any sedation. Has received occasional morphine. Afebrile Vital signs stable now on 40% FiO2 PEEP of 5 saturating well Tolerating his tube feeding Has had adequate diuresis yesterday was negative by 1.6 L SIGNIFICANT DATA Cultures reviewed BUN/creatinine stable anion gap is 4 white count down to 10 hemoglobin relatively stable at 8.6 platelets are adequate previous ABGs reviewed chest x- ray done showed no significant change in if is interstitial opacities Objective Current Medications: Current Medications Sig/Silvana Start time Last Medication Dose Route Stop Time Status Admin Albuterol Sulfate 3 ML BID 12/09 1000 AC 12/12 INH 0837 Artificial Tears 2 GTT TID 12/09 220 AC 12/12 OPH 0944 Ceftazidime 2,000 MG Q12 12/08 2200 AC 12/12 Dextrose/Water 50 ML IV 0936 Heparin Sodium 5,000 UNIT Q8 12/08 1726 AC 12/12 (Porcine) SC 0600 Insulin Human Regular 0 Q6 12/12 0838 AC SC Lorazepam 2 MG Q4P PRN 12/12 0845 AC 12/12 IV 0852 Lorazepam 2 MG ONE ONE 12/12 0300 DC 12/12 IV 12/12 0301 0315 Lorazepam 2 MG ONE TIME ONE 12/11 2200 DC IV 12/11 2201 Methylprednisolone 40 MG Q12 12/08 2200 AC 12/12 IV 0937 Morphine Sulfate 2 MG Q4P PRN 12/10 1100 AC 12/12 IV 0853 Pantoprazole Sodium 40 MG DAILY 12/08 1845 AC 12/12 IV 0902 Phosphate 250 MG ONCE ONE 12/12 0845 DC 12/12 PO 12/12 0846 0936 Vancomycin HCl 1,000 MG 0500,1700 12/09 0500 AC 12/12 Sodium Chloride 250 ML IV 0557 Laboratory Tests 12/12 12/11 0535 0550 Blood Gas pH (7.35 - 7.45 PH) 7.38 pCO2 (35 - 45 TORR) 30 L pO2 (80 - 100 TORR) 105 H HCO3 (21 - 28 MEQ/L) 17 L ABG O2 Sat (Measured) (>96.0 %) 97.0 P-50 (Temp Corrected) N Carboxyhemoglobin (1.5 - 5.0 %) 0.2 L O2 Concentration % .30 Respiration Rate (BPM) 20 O2 Delivery Method VENT Vent Mode A/C Expiratory Pressure (CMH2O/P) 5 Tidal Volume (CC) 550 Chemistry Sodium (137 - 145 mmol/L) 139 Potassium (3.5 - 5.1 mmol/L) 4.8 Chloride (98 - 107 mmol/L) 116 H Carbon Dioxide (22 - 30 mmol/L) 19 L Anion Gap (5 - 16) 4 L BUN (9 - 20 mg/dL) 32 H Creatinine (0.7 - 1.2 mg/dL) 0.8 Estimated GFR (>60 ml/min) > 60 Glucose (65 - 99 mg/dL) 142 H Calcium (8.4 - 10.2 mg/dL) 7.1 L Phosphorus (2.5 - 4.5 mg/dL) 3.5 Magnesium (1.6 - 2.3 mg/dL) 2.6 H Total Bilirubin (0.2 - 1.3 mg/dL) < 0.1 L AST (17 - 59 U/L) 24 ALT (21 - 72 U/L) 18 L Albumin (3.5 - 5.0 g/dL) 1.7 L Hematology CBC w Diff NO MAN DIFF REQ WBC (4.8 - 10.8 /CUMM) 10.8 RBC (4.70 - 6.10 /CUMM) 3.27 L Hgb (14.0 - 18.0 G/DL) 8.6 L Hct (42 - 52 %) 26.4 L MCV (80.0 - 94.0 FL) 80.6 MCH (27.0 - 31.0 PG) 26.4 L RDW (11.5 - 14.5 %) 19.0 H Plt Count (130 - 400 /CUMM) 331 MPV (7.4 - 10.4 FL) 6.6 L Gran % (42.2 - 75.2 %) 87.8 H Lymphocytes % (20.5 - 51.1 %) 8.1 L Monocytes % (1.7 - 9.3 %) 4.1 Eosinophils % (0 - 5 %) 0 Basophils % (0.0 - 2.0 %) 0 L Absolute Granulocytes (1.4 - 6.5 /CUMM) 9.5 H Absolute Lymphocytes (1.2 - 3.4 /CUMM) 0.9 L Absolute Monocytes (0.10 - 0.60 /CUMM) 0.4 Absolute Eosinophils (0.0 - 0.7 /CUMM) 0 PUBS MCHC (33.0 - 37.0 G/DL) 32.7 L Miscellaneous Phlebotomy Draw Site RIGHT RADIAL 12/11 12/10 6031 7854 Blood Gas pH (7.35 - 7.45 PH) 7.39 pCO2 (35 - 45 TORR) 30 L pO2 (80 - 100 TORR) 130 H HCO3 (21 - 28 MEQ/L) 18 L ABG O2 Sat (Measured) (>96.0 %) 98.0 P-50 (Temp Corrected) N Carboxyhemoglobin (1.5 - 5.0 %) 0.3 L O2 Concentration % 35% Respiration Rate (BPM) 26 O2 Delivery Method VENT Vent Mode AC Expiratory Pressure (CMH2O/P) 5 Tidal Volume (CC) 550 Pressure Support (CMH2O/P) 0 Chemistry Sodium (137 - 145 mmol/L) 139 Potassium (3.5 - 5.1 mmol/L) 4.4 Chloride (98 - 107 mmol/L) 116 H Carbon Dioxide (22 - 30 mmol/L) 18 L Anion Gap (5 - 16) 5 BUN (9 - 20 mg/dL) 26 H Creatinine (0.7 - 1.2 mg/dL) 1.0 Estimated GFR (>60 ml/min) > 60 Glucose (65 - 99 mg/dL) 119 H Calcium (8.4 - 10.2 mg/dL) 6.6 L Phosphorus (2.5 - 4.5 mg/dL) 4.4 Magnesium (1.6 - 2.3 mg/dL) 2.5 H Total Bilirubin (0.2 - 1.3 mg/dL) < 0.1 L AST (17 - 59 U/L) 34 ALT (21 - 72 U/L) 37 Albumin (3.5 - 5.0 g/dL) 1.7 L Hematology CBC w Diff NO MAN DIFF REQ WBC (4.8 - 10.8 /CUMM) 14.7 H RBC (4.70 - 6.10 /CUMM) 3.21 L Hgb (14.0 - 18.0 G/DL) 8.4 L Hct (42 - 52 %) 26.1 L MCV (80.0 - 94.0 FL) 81.4 MCH (27.0 - 31.0 PG) 26.0 L RDW (11.5 - 14.5 %) 18.4 H Plt Count (130 - 400 /CUMM) 377 MPV (7.4 - 10.4 FL) 6.4 L Gran % (42.2 - 75.2 %) 92.0 H Lymphocytes % (20.5 - 51.1 %) 6.1 L Monocytes % (1.7 - 9.3 %) 1.9 Eosinophils % (0 - 5 %) 0 Basophils % (0.0 - 2.0 %) 0 L Absolute Granulocytes (1.4 - 6.5 /CUMM) 13.5 H Absolute Lymphocytes (1.2 - 3.4 /CUMM) 0.9 L Absolute Monocytes (0.10 - 0.60 /CUMM) 0.3 Absolute Eosinophils (0.0 - 0.7 /CUMM) 0 Absolute Basophils (0.0 - 0.2 /CUMM) 0 PUBS MCHC (33.0 - 37.0 G/DL) 32.0 L Miscellaneous Phlebotomy Draw Site RIGHT RADIAL Vital Signs & I&O Last 24 Hrs of Vitals and I&O: Vital Signs Date Time Temp Pulse Resp B/P B/P Pulse O2 O2 Flow FiO2 Mean Ox Delivery Rate 12/12 0903 97.5 61 17 124/70 96 Ventilator 40% 12/12 0825 30 12/12 0800 97 Ventilator 40% 12/12 0600 30 12/12 0400 96 Ventilator 40% 12/12 0352 30 12/12 0024 30 12/12 0000 97 Ventilator 40% 12/12 0000 99.4 75 23 156/80 97 Ventilator 40% 12/11 2029 30 12/11 2000 97 Ventilator 40% 12/11 1605 30 12/11 1600 97 Ventilator 40% 12/11 1600 98.3 74 19 150/80 97 Ventilator 40% 12/11 1342 30 12/11 1200 96 Ventilator 40% 12/11 1118 30 Intake & Output 12/12 1600 12/12 0800 12/12 0000 Intake Total 1000 Output Total 750 Balance 250 Intake, Tube 720 Feeding Intake, Tube 280 Irrigant Number 0 Bowel Movements Output, Urine 750 Patient 186 lb Weight Weight Bed scale Measurement Method Impression/Plan Impression/Plan Impression/Plan: Physical Exam General Appearance intubated, not purposeful movements Skin dry skin on bilateral lower extremities Skin Temp/Moisture Exam: Cool/Dry Sepsis Skin Exam (color): Mottled, Pale HEENT Atraumatic Cardiovascular Regular Rate, Normal S1, Normal S2 Lungs b/l ronchii and rales Abdomen Normal Bowel Sounds, Soft, No Tenderness Extremities Clubbing noted IMPRESSION * Respiratory failure and Septic shock due to aspiration pneumonia, blood cultures are positive for strep b. * Leukocytosis with bandemia shift secondary to aspiration pneumonia with strep and staph * Atx and consolidation of lll * Status post cardiac arrest and CPR. * Probable anoxic brain injury. * Anemia of chronic disease, without active bleeding. * Recently diagnosed esophageal cancer - awaiting chemoradiation. * DEE - Cr improved. * History of nephrotic syndrome. * Protein calorie malnutrition. * Chronic pain with opiate dependency. * History of interstitial lung disease and ARDS secondary to chemical pneumonitis. * History of COPD, with 2 L home oxygen dependence. * Known diastolic heart failure. * Known history of hypertension. REC COnt all meds Reduce Solu-Medrol to 40 mg daily Changes antibiotic to cefazolin, repeat sputum culture if he has worsening fever nebs daily lasix 20 mg 1 dose COnt ppi and heparin Discontinue Ativan only use morphine Pt is critically ill TTS 45 mins
--- NOTE | 2016-12-12 12:37 | RADIOLOGY REPORT ---
EXAMINATION: XR PORTABLE CHEST CLINICAL INFORMATION: Chronic interstitial lung changes are stable and unchanged 2 12/12/2016 exam COMPARISON: None TECHNIQUE: Portable frontal view of the chest was obtained. FINDINGS: Both lungs are fairly well-expanded with increased interstitial markings in both lungs. Heart size and pulmonary vascularity is normal. Endotracheal tube is approximately 4.6 cm above the luis enrique. A nasogastric tube is below the diaphragm in the stomach. IMPRESSION: Support lines and catheters in good position. No change in increased interstitial markings in both lungs.
--- NOTE | 2016-12-12 13:06 | PN- Cardiology ---
Subjective Subjective: Clinically, there does not appear to been any appreciable change since yesterday. Hemodynamically unchanged. No evidence of any recurrent bradycardia arrhythmias or other new cardiac issues. Objective Vital Signs and I&Os Vital Signs Date Time Temp Pulse Resp B/P B/P Pulse O2 O2 Flow FiO2 Mean Ox Delivery Rate 12/12 1206 30 12/12 1200 96 Ventilator 40% 12/12 0903 97.5 61 17 124/70 96 Ventilator 40% 12/12 0825 30 12/12 0800 97 Ventilator 40% 12/12 0600 30 12/12 0400 96 Ventilator 40% 12/12 0352 30 12/12 0024 30 12/12 0000 97 Ventilator 40% 12/12 0000 99.4 75 23 156/80 97 Ventilator 40% 12/11 2029 30 12/11 2000 97 Ventilator 40% 12/11 1605 30 12/11 1600 97 Ventilator 40% 12/11 1600 98.3 74 19 150/80 97 Ventilator 40% 12/11 1342 30 Intake & Output 12/12 1600 12/12 0800 12/12 0000 12/11 1600 12/11 0800 12/11 0000 Intake Total 1062 435 8131 782 Output Total 750 1300 600 550 Balance 250 -360 531 232 Intake, IV 220 632 550 Intake, Oral 0 Intake, Tube 720 480 219 92 Feeding Intake, Tube 280 240 280 140 Irrigant Number 0 0 Bowel Movements Output, Urine 750 1300 600 550 Patient 186 lb Weight Weight Bed scale Measurement Method Physical Exam: General Appearance intubated Skin normal HEENT Atraumatic; grossly normal Cardiovascular Regular Rate, Normal S1, Normal S2, 1/6 systolic murmur Lungs b/l ronchii and rales Abdomen Normal Bowel Sounds, Soft, No Tenderness Extremities Clubbing noted, bilateral edema with stasis changes Current Medications: Current Medications Sig/Silvana Start time Last Medication Dose Route Stop Time Status Admin Albuterol Sulfate 3 ML BID 12/09 1000 12/12 INH 0837 Artificial Tears 2 GTT TID 12/09 OPH 0944 Ceftazidime 2,000 MG Q12 12/08 2199 AC 12/12 Dextrose/Water 50 ML IV 0936 Heparin Sodium 5,000 UNIT Q8 12/08 1726 12/12 (Porcine) SC 0600 Insulin Human Regular 0 Q6 12/12 0838 12/12 SC 1136 Lorazepam 2 MG Q4P PRN 12/12 0845 AC 12/12 IV 0852 Lorazepam 2 MG ONE ONE 12/12 0300 DC 12/12 IV 12/12 0301 0315 Lorazepam 2 MG ONE TIME ONE 12/11 2199 DC IV 12/11 2200 Methylprednisolone 40 MG Q12 12/08 220 AC 12/12 IV 0937 Morphine Sulfate 2 MG Q4P PRN 12/10 1100 AC 12/12 IV 1250 Pantoprazole Sodium 40 MG DAILY 12/08 1845 AC 12/12 IV 0902 Phosphate 250 MG ONCE ONE 12/12 0845 DC 12/12 PO 12/12 0846 0936 Vancomycin HCl 1,000 MG 0500,1700 12/09 0500 AC 12/12 Sodium Chloride 250 ML IV 0557 Results Last 48 Hrs of Labs/Mics: Laboratory Tests 12/12/16 0535: Anion Gap 4 L, Estimated GFR > 60, Glucose 142 H, Calcium 7.1 L, Phosphorus 3.5, Magnesium 2.6 H, Total Bilirubin < 0.1 L, AST 24, ALT 18 L, Albumin 1.7 L, CBC w Diff NO MAN DIFF REQ, RBC 3.27 L, MCV 80.6, MCH 26.4 L, RDW 19.0 H, MPV 6.6 L, Gran % 87.8 H, Lymphocytes % 8.1 L, Monocytes % 4.1, Eosinophils % 0, Basophils % 0 L, Absolute Granulocytes 9.5 H, Absolute Lymphocytes 0.9 L, Absolute Monocytes 0.4, Absolute Eosinophils 0, PUBS MCHC 32.7 L 12/11/16 0550: pH 7.38, pCO2 30 L, pO2 105 H, HCO3 17 L, ABG O2 Sat (Measured) 97.0, P-50 ( Temp Corrected) N, Carboxyhemoglobin 0.2 L, O2 Concentration % .30, Respiration Rate 20, O2 Delivery Method VENT, Vent Mode A/C, Expiratory Pressure 5, Tidal Volume 550, Phlebotomy Draw Site RIGHT RADIAL 12/11/16 0359: Anion Gap 5, Estimated GFR > 60, Glucose 119 H, Calcium 6.6 L, Phosphorus 4.4, Magnesium 2.5 H, Total Bilirubin < 0.1 L, AST 34, ALT 37, Albumin 1.7 L, CBC w Diff NO MAN DIFF REQ, RBC 3.21 L, MCV 81.4, MCH 26.0 L, RDW 18.4 H, MPV 6.4 L, Gran % 92.0 H, Lymphocytes % 6.1 L, Monocytes % 1.9, Eosinophils % 0, Basophils % 0 L, Absolute Granulocytes 13.5 H, Absolute Lymphocytes 0.9 L, Absolute Monocytes 0.3, Absolute Eosinophils 0, Absolute Basophils 0, PUBS MCHC 32.0 L 12/10/16 1325: pH 7.39, pCO2 30 L, pO2 130 H, HCO3 18 L, ABG O2 Sat (Measured) 98.0, P-50 ( Temp Corrected) N, Carboxyhemoglobin 0.3 L, O2 Concentration % 35%, Respiration Rate 26, O2 Delivery Method VENT, Vent Mode AC, Expiratory Pressure 5, Tidal Volume 550, Pressure Support 0, Phlebotomy Draw Site RIGHT RADIAL Assessment/Plan Assessment/Plan Assessment: 1. S/P bradycardic cardiac arrest likley related to primary pulmonary event. 2. Acute respiratory failure with possible aspiration pneumonia 3. Shock 4. ILD 5. History of nephrotic syndrome. 6. Probable anoxic brain injury Recommendations: -For now, continue as per the critical care team. Continue supportive care -The patient's heart rate and blood pressure are stable today. Continue as per critical care. -Further plans pending -Continue all current medical therapy. -Continue antibiotics. -Await follow-up input from neurology and further discussions with the patient's family. Continue telemetry? Yes
[2016-12-12 16:49] VITALS: BP 142/78
[2016-12-13] VITALS: BP 135/67
[2016-12-13 06:07] LABS: ABSOLUTE BASOPHIL COUNT 0.3 /CUMM (0.0-0.2); ABSOLUTE EOSINOPHIL COUNT 0 /CUMM (0.0-0.7); ABSOLUTE GRANULOCYTE CT 14.8 /CUMM (1.4-6.5); ABSOLUTE LYMPH COUNT 3.5 /CUMM (1.2-3.4); ABSOLUTE MONOCYTE COUNT 1.1 /CUMM (0.10-0.60); BASOPHIL % 1.3 % (0.0-2.0); EOSINOPHIL % 0.1 % (0-5); GRANULOCYTE % 75.4 % (42.2-75.2); HEMATOCRIT 28.3 % (42-52); MEAN CORPUSCULAR HGB 26.7 PG (27.0-31.0); MEAN PLATELET VOLUME 7.9 FL (7.4-10.4); PLATELET COUNT 305 /CUMM (130-400); RBC DISTRIBUTION WIDTH 18.2 % (11.5-14.5); RED BLOOD CELL CT 3.49 /CUMM (4.70-6.10)
[2016-12-13 06:13] LABS: WHITE BLOOD CELL COUNT 19.6 /CUMM (4.8-10.8)
[2016-12-13 08:00] VITALS: BP 150/78
--- NOTE | 2016-12-13 08:11 | PN- Resident CRCU ---
Subjective HPI/CRCU Issues: 1. Episode of unresponsive at home, possibly after seizure, EEG showing anoxic brain injury 2. Hypoxic respiratory failure possibly secondary to aspiration pneumonia 3. Septic shock 4. Status post cardiac arrest and CPR at home 5. CHF, chronic lower extremity edema 6. Anemia of chronic disease 7. Recently diagnosed esophageal adenocarcinoma 8. Chronic kidney disease, proteinuria Patient was seen and examined this morning, intubated, not sedated, eyes are open and not responding to painful or verbal stimulus. No overnight events reported by the nurse 24 Hour Events: Temperature 98.6, MAXIMUM TEMPERATURE 98.6 Pulse lowest 53, highest 84 sinus rhythm Blood pressure lowest 124/70, highest 168/84 AC 550/20/5/30 saturating 94% Intake 3001, output 2800 Tolerating tube feeds well Objective Vital Signs & I&O Last 8 Hrs of Vitals and I&O: 11 Exam General Appearance: intubated Head: atraumatic, normal appearance Ears, Nose, Throat: normal pharynx Neck: normal inspection, supple, full range of motion Respiratory: chest non-tender, rhonchi Cardiovascular: regular rate/rhythm Gastrointestinal: normal bowel sounds, soft, non-tender Extremities: normal inspection, normal capillary refill, normal range of motion, Pedal edema +1x4 Cranial Nerves: PERRL Weaning Parameters NIF: 29 Minute Volume: 11 Resp rate: 10 Vt: 705 Heart Rate: 80 Current Medications: Current Medications Sig/Silvana Start time Last Medication Dose Route Stop Time Status Admin Albuterol Sulfate 3 ML BID 12/09 1000 AC 12/13 INH 0756 Artificial Tears 2 GTT TID 12/09 2200 AC 12/13 OPH 0916 Cefazolin Sodium 1,000 MG IQ8 12/13 0000 AC 12/13 IV 0917 Ceftazidime 2,000 MG Q12 12/08 2200 DC 12/12 Dextrose/Water 50 ML IV 0936 Furosemide 20 MG ONCE ONE 12/13 0900 DC 12/13 IV 12/13 0901 0917 Furosemide 20 MG ONCE ONE 12/12 1645 DC 12/12 IV 12/12 1646 1646 Heparin Sodium 5,000 UNIT Q8 12/08 1726 AC 12/13 (Porcine) SC 0700 Insulin Human Regular 0 Q6 12/12 0838 AC 12/12 SC 1136 Lorazepam 2 MG Q6-PRN PRN 12/12 2245 DC 12/13 IV 0453 Lorazepam 2 MG Q4P PRN 12/12 0845 DC 12/12 IV 0852 Losartan Potassium 50 MG DAILY 12/13 1000 AC PO Methylprednisolone 40 MG DAILY 12/13 1000 AC 12/13 IV 0917 Methylprednisolone 40 MG Q12 12/08 2200 DC 12/12 IV 0937 Morphine Sulfate 2 MG Q3P PRN 12/13 0900 AC 12/13 IV 0909 Morphine Sulfate 2 MG Q4P PRN 12/10 1100 DC 12/13 IV 0217 Pantoprazole Sodium 40 MG DAILY 12/08 1845 AC 12/13 IV 0917 Phosphate 250 MG ONCE ONE 12/13 0815 DC 12/13 PO 12/13 0816 0917 Vancomycin HCl 1,000 MG 0500,1700 12/09 0500 DC 12/12 Sodium Chloride 250 ML IV 1632 Impression/Plan Impression/Problem List Impression: Mr. Monge is 51-year-old gentleman with past medical history significant for diastolic CHF, hypertension, COPD with 2 L home oxygen dependence, ILD, history of large with prolonged mechanical ventilation, CKD, neuropathy that presented to the emergency room via ambulance after family found him unresponsive. Patient went into cardiac arrest and bradycardia CPR was administered with 2 rounds of epinephrine, subsequently he had return of rhythm and pulses he was intubated and a right femoral central line was placed, Levothroid drip was started. Patient was admitted to ICU for close monitoring. Problem list: #Acute hypoxic respiratory failure secondary to aspiration pneumonia #Septic shock #Status post cardiac arrest and CPR #Anemia of chronic disease #Recently diagnosed esophageal cancer #Acute kidney injury #Nephrotic syndrome Cardiology -Off Levofed -Blood pressure and heart rate are stable -Continue morphine 2 mg every 4 when necessary for opioid withdrawl -Cardio consultation was placed, waiting for evaluation -Echo 12/08/16 CONCLUSIONS 1. This was a technically difficult study due to the patient's body habitus and clinical status. 2. Minimal to mild aortic sclerosis is present with no valvular stenosis or insufficiency. 3. Mitral leaflet thickeining is present with mild anular calcification and mild mitral insufficiency. 4. A very small pericardial effusion is present. 5. The left ventricular chamber size is normal with an ejection fraction of 55- 60%. Abnormal septal motion is present suggestive of the presence of pulmonary hypertension. 6. The right heart structures were not optimally visualized. Mild tricuspid insufficiency is present but the RV systolic pressure was not accurately assessed. ID -Cefazolin 1000 mg Q8, leukocytosis of 19.6 today without bands, continue to have elevated white blood cell or fever will get sputum culture -Patient was initially on ceftriaxone and vancomycin for aspiration pneumonia, recent history of hospitlization in september -Afubrile -1 set of blood culture and sputum culture are positive for methicillin sensitive staph aureus Respiratory -Continue Solu-Medrol to 40 IV daily -Mechanical ventilation FiO2 30%, PEEP of 5 saturating well, chest x-ray daily -Ventilation bundle Neurology -Neuro consultation was obtained, thanks recommendation -EEG 12/09 Impression: Burst/suppression pattern, often seen in severe anoxic encephalopathy, and usually associiated with a poor prognosis -2 CT scans head did not show acute intracranial changes -Guarding prognosis Hematology oncology -Patient was recently diagnosed with esophageal cancer T1N2 -Oncology consultation was obtained, thanks for recommendation Nephrology -Patient has history of nephrotic syndrome, albumin on admission 1.5, urine albumin more than 300 -Progressing Pickell edema -Positive fluid balance by almost 1 L -Restart losartan 50 mg daily to lower intraglomerular pressure and hence reduce protien excretion Metabolic -Replete electrolytes as needed Alimentary -Nothing by mouth -Nutrition consultation was obtained for tube feeding DVT prophylaxis heparin subcutaneous Code full Consultation cardiology, neuro, nutrition Problem List: 1. Esophageal cancer 2. Septic shock 3. Aspiration pneumonia 4. Proteinuria Pain Ratin Tomorrow's Labs & Rationales: ICU bundle, CBC, Chesy x ray Plan DVT/Prophylaxis: mechanical, pharmacological
--- NOTE | 2016-12-13 08:17 | RADIOLOGY REPORT ---
EXAMINATION: XR PORTABLE CHEST CLINICAL INFORMATION: Mechanical ventilation. ET tube position. COMPARISON: Chest 12/12/2016. TECHNIQUE: Portable frontal view of the chest was obtained. FINDINGS: Again visualized is expanded lungs with increase interstitial changes in both lungs. There is increased hilar densities suggestive of overlying congestion or worsening of interstitial pneumonitis. The heart size is borderline normal. Endotracheal tube is 3.8 cm above the luis enrique. Nasogastric tube tip is below the diaphragm. IMPRESSION: Interval slight prominence of bilateral noel suspicious for vascular congestion superimposed on chronic interstitial opacities. Endotracheal tube and nasogastric tube are in satisfactory position.
--- NOTE | 2016-12-13 08:46 | PN- CRCU ---
Subjective HPI/Critical Care Issues: Doing about the same No further improvement in his neurological status No history could be obtained Does not follow any commands does not respond to painful stimuli Afebrile Vital signs stable and patient's blood pressure was slightly elevated Patient did get some morphine and 2 doses of Ativan Tube feedings ongoing Patient is even with eyes and nose Significant data BUN/creatinine reviewed as noted magnesium is adequate alkaline phosphatase was slightly elevated last TSH was normal White count still elevated at 19 which is much worse than yesterday hemoglobin stable does not have a significant left shift Cultures reviewed Objective Current Medications: Current Medications Sig/Silvana Start time Last Medication Dose Route Stop Time Status Admin Albuterol Sulfate 3 ML BID 12/09 1000 AC 12/13 INH 0756 Artificial Tears 2 GTT TID 12/09 2200 AC 12/12 OPH 2206 Cefazolin Sodium 1,000 MG IQ8 12/13 0000 AC 12/13 IV 0100 Ceftazidime 2,000 MG Q12 12/08 2200 DC 12/12 Dextrose/Water 50 ML IV 0936 Furosemide 20 MG ONCE ONE 12/12 1645 DC 12/12 IV 12/12 1646 1646 Heparin Sodium 5,000 UNIT Q8 12/08 1726 AC 12/13 (Porcine) SC 0700 Insulin Human Regular 0 Q6 12/12 0838 AC 12/12 SC 1136 Lorazepam 2 MG Q6-PRN PRN 12/12 2245 AC 12/13 IV 0453 Lorazepam 2 MG Q4P PRN 12/12 0845 DC 12/12 IV 0852 Methylprednisolone 40 MG DAILY 12/13 1000 AC IV Methylprednisolone 40 MG Q12 12/08 2200 DC 12/12 IV 0937 Morphine Sulfate 2 MG Q4P PRN 12/10 1100 AC 12/13 IV 0217 Pantoprazole Sodium 40 MG DAILY 12/08 1845 AC 12/12 IV 0902 Phosphate 250 MG ONCE ONE 12/13 0815 DC PO 12/13 0816 Phosphate 250 MG ONCE ONE 12/12 0845 DC 12/12 PO 12/12 0846 0936 Vancomycin HCl 1,000 MG 0500,1700 12/09 0500 DC 12/12 Sodium Chloride 250 ML IV 1632 Vital Signs & I&O Last 24 Hrs of Vitals and I&O: Vital Signs Date Time Temp Pulse Resp B/P B/P Pulse O2 O2 Flow FiO2 Mean Ox Delivery Rate 12/13 0745 30 12/13 0603 30 12/13 0347 94 Ventilator 30% 12/13 0318 30 12/13 0127 30 12/13 0000 97.6 64 20 135/67 96 Ventilator 30% 12/13 0000 96 Ventilator 30% 12/12 2206 30 12/12 2020 30 12/12 2000 96 Ventilator 30% 12/12 1649 97.3 65 19 142/78 94 Ventilator 40% 12/12 1640 30 12/12 1600 96 Ventilator 40% 12/12 1444 30 12/12 1206 30 12/12 1200 96 Ventilator 40% 12/12 0903 97.5 61 17 124/70 96 Ventilator 40% Intake & Output 12/13 1600 12/13 0800 12/13 0000 Intake Total 816 1025 Output Total 700 1400 Balance 116 -375 Intake, IV 0 270 Intake, Tube 536 535 Feeding Intake, Tube 280 220 Irrigant Number 0 1 Bowel Movements Output, Urine 700 1400 Impression/Plan Impression/Plan Impression/Plan: Physical Exam General Appearance intubated, not purposeful movements Skin dry skin on bilateral lower extremities Skin Temp/Moisture Exam: Cool/Dry Sepsis Skin Exam (color): Mottled, Pale HEENT Atraumatic Cardiovascular Regular Rate, Normal S1, Normal S2 Lungs b/l ronchii and rales Abdomen Normal Bowel Sounds, Soft, No Tenderness Extremities Clubbing noted IMPRESSION * Respiratory failure and Septic shock due to aspiration pneumonia, blood cultures are positive for strep b. * Leukocytosis with bandemia shift secondary to aspiration pneumonia with strep and staph * Atx and consolidation of lll * Status post cardiac arrest and CPR. * Probable anoxic brain injury. * Anemia of chronic disease, without active bleeding. * Recently diagnosed esophageal cancer - awaiting chemoradiation. * DEE - Cr improved. * History of nephrotic syndrome. * Protein calorie malnutrition. * Chronic pain with opiate dependency. * History of interstitial lung disease and ARDS secondary to chemical pneumonitis. * History of COPD, with 2 L home oxygen dependence. * Known diastolic heart failure. * Known history of hypertension. REC COnt all meds Solu-Medrol to 40 mg daily Cefazolin, repeat sputum culture if he has worsening fever nebs daily lasix 20 mg 1 dose again today COnt ppi and heparin Discontinue Ativan Use morphine or fentanyl for agitation Family meeting held yesterday with patient's sister, mother and other family members. There are eventually leaning towards withdrawal of care however at this time they want him to continue to be full code until they have a meeting of their own, and they will get back to us about their decision Pt is critically ill TTS 45 mins
--- NOTE | 2016-12-13 13:39 | PN- Cardiology ---
Subjective Subjective: Clinically, the patient remains about the same. No significant change in status. Neurologic status without significant change. Cardiac status essentially stable. No significant arrhythmias detected. Objective Vital Signs and I&Os Vital Signs Date Time Temp Pulse Resp B/P B/P Pulse O2 O2 Flow FiO2 Mean Ox Delivery Rate 12/13 1122 30 12/13 1104 79 156/74 12/13 0800 98.8 77 20 150/78 99 Ventilator 30% 12/13 0800 99 Ventilator 30% 12/13 0745 30 12/13 0603 30 12/13 0347 94 Ventilator 30% 12/13 0318 30 12/13 0127 30 12/13 0000 97.6 64 20 135/67 96 Ventilator 30% 12/13 0000 96 Ventilator 30% 12/12 2206 30 12/12 2020 30 12/12 2000 96 Ventilator 30% 12/12 1649 97.3 65 19 142/78 94 Ventilator 40% 12/12 1640 30 12/12 1600 96 Ventilator 40% 12/12 1444 30 Intake & Output 12/13 1600 12/13 0800 12/13 0000 12/12 1600 12/12 0800 12/12 0000 Intake Total 816 1025 1160 1000 Output Total 700 1400 700 750 Balance 116 -375 460 250 Intake, IV 0 270 100 Intake, Oral 0 Intake, Tube 536 535 720 720 Feeding Intake, Tube 280 220 340 280 Irrigant Number 0 1 0 Bowel Movements Output, Urine 700 1400 700 750 Patient 185 lb 186 lb Weight Weight Bed scale Bed scale Measurement Method Physical Exam: General Appearance intubated Skin normal HEENT Atraumatic; grossly normal Cardiovascular Regular Rate, Normal S1, Normal S2, 1/6 systolic murmur Lungs b/l ronchii and rales Abdomen Normal Bowel Sounds, Soft, No Tenderness Extremities Clubbing noted, bilateral edema with stasis changes Neurologic: Unchanged Current Medications: Current Medications Sig/Silvana Start time Last Medication Dose Route Stop Time Status Admin Albuterol Sulfate 3 ML BID 12/09 1000 AC 12/13 INH 0756 Artificial Tears 2 GTT TID 12/09 2199 AC 12/13 OPH 0916 Cefazolin Sodium 1,000 MG IQ8 12/13 0000 AC 12/13 IV 0917 Ceftazidime 2,000 MG Q12 12/08 2199 DC 12/12 Dextrose/Water 50 ML IV 0936 Furosemide 20 MG ONCE ONE 12/13 0900 DC 12/13 IV 12/13 0901 0917 Furosemide 20 MG ONCE ONE 12/12 1645 DC 12/12 IV 12/12 1646 1646 Heparin Sodium 5,000 UNIT Q8 12/08 1726 AC 12/13 (Porcine) SC 1335 Insulin Human Regular 0 Q6 12/12 0838 AC 12/12 SC 1136 Lorazepam 2 MG Q6-PRN PRN 12/12 2245 DC 12/13 IV 0453 Lorazepam 2 MG Q4P PRN 12/12 0845 DC 12/12 IV 0852 Losartan Potassium 50 MG DAILY 12/13 1000 AC 12/13 PO 1104 Methylprednisolone 40 MG DAILY 12/13 1000 AC 12/13 IV 0917 Methylprednisolone 40 MG Q12 12/08 2200 DC 12/12 IV 0937 Morphine Sulfate 2 MG Q3P PRN 12/13 0900 AC 12/13 IV 1336 Morphine Sulfate 2 MG Q4P PRN 12/10 1100 DC 12/13 IV 0217 Pantoprazole Sodium 40 MG DAILY 12/08 1845 AC 12/13 IV 0917 Phosphate 250 MG ONCE ONE 12/13 0815 DC 12/13 PO 12/13 0816 0917 Vancomycin HCl 1,000 MG 0500,1700 12/09 0500 DC 12/12 Sodium Chloride 250 ML IV 1632 Results Last 48 Hrs of Labs/Mics: Laboratory Tests 12/13/16 0525: Anion Gap 3 L, Estimated GFR > 60, Glucose 92, Calcium 7.6 L, Phosphorus 3.2, Magnesium 2.7 H, Total Bilirubin 0.1 L, AST 26, ALT 28, Albumin 1.8 L, CBC w Diff MAN DIFF ORDERED, RBC 3.49 L, MCV 81.0, MCH 26.7 L, RDW 18.2 H, MPV 7.9, Gran % 75.4 H, Lymphocytes % 17.8 L, Monocytes % 5.4, Eosinophils % 0.1, Basophils % 1.3, Absolute Granulocytes 14.8 H, Segmented Neutrophils 81 H, Absolute Lymphocytes 3.5 H, Lymphocytes 12 L, Monocytes 7, Absolute Monocytes 1.1 H, Absolute Eosinophils 0, Absolute Basophils 0.3, Platelet Estimate ADEQUATE, Normochromic RBCs VERIFIED, Poikilocytosis 1+, Ovalocytes 1+, Stomatocytes FEW, Elliptocytes FEW, PUBS MCHC 33.0, Fld Total RBCs Counted 100 12/12/16 0535: Anion Gap 4 L, Estimated GFR > 60, Glucose 142 H, Calcium 7.1 L, Phosphorus 3.5, Magnesium 2.6 H, Total Bilirubin < 0.1 L, AST 24, ALT 18 L, Albumin 1.7 L, CBC w Diff NO MAN DIFF REQ, RBC 3.27 L, MCV 80.6, MCH 26.4 L, RDW 19.0 H, MPV 6.6 L, Gran % 87.8 H, Lymphocytes % 8.1 L, Monocytes % 4.1, Eosinophils % 0, Basophils % 0 L, Absolute Granulocytes 9.5 H, Absolute Lymphocytes 0.9 L, Absolute Monocytes 0.4, Absolute Eosinophils 0, PUBS MCHC 32.7 L Assessment/Plan Assessment/Plan Assessment: 1. S/P bradycardic cardiac arrest likley related to primary pulmonary event. 2. Acute respiratory failure with possible aspiration pneumonia 3. Shock 4. ILD 5. History of nephrotic syndrome. 6. Probable anoxic encephalopathy Recommendations: -For now, continue as per the critical care team. Continue supportive care -The patient's heart rate and blood pressure are stable today. Continue as per critical care. -Further plans pending -Continue all current medical therapy. Losartan re-added to regimen -Await follow-up input from neurology -Await further input from family about long-term goals of care.
[2016-12-13 16:00] VITALS: BP 130/74
--- NOTE | 2016-12-14 04:37 | Event Note ---
Event Note Event Note: Pt had witnessed seizure with posturing, jerking movement, tachycardia, and hypertension noted around 4:30 am. He was given 2mg IV ativan. Had another witnessed episode several hours later. Another 2mg IV ativan given with resolution of signs.
[2016-12-14 05:57] LABS: ABSOLUTE BASOPHIL COUNT 0 /CUMM (0.0-0.2); ABSOLUTE EOSINOPHIL COUNT 0.1 /CUMM (0.0-0.7); ABSOLUTE GRANULOCYTE CT 12.2 /CUMM (1.4-6.5); ABSOLUTE MONOCYTE COUNT 1.4 /CUMM (0.10-0.60); BASOPHIL % 0.1 % (0.0-2.0); EOSINOPHIL % 0.6 % (0-5); GRANULOCYTE % 68.5 % (42.2-75.2); HEMATOCRIT 29.5 % (42-52); MEAN CORPUSCULAR HGB 26.2 PG (27.0-31.0); MEAN CORPUSCULAR HGB CONC 32.5 G/DL (33.0-37.0); MEAN CORPUSCULAR VOLUME 80.8 FL (80.0-94.0); PLATELET COUNT 360 /CUMM (130-400); RED BLOOD CELL CT 3.65 /CUMM (4.70-6.10); WHITE BLOOD CELL COUNT 17.8 /CUMM (4.8-10.8)
--- NOTE | 2016-12-14 07:27 | PN- Resident CRCU ---
Subjective HPI/CRCU Issues: Follow-up for: 1. Episode of unresponsive at home, possibly after seizure, EEG showing anoxic brain injury 2. Hypoxic respiratory failure possibly secondary to aspiration pneumonia 3. Septic shock 4. Status post cardiac arrest and CPR at home 5. CHF, chronic lower extremity edema 6. Anemia of chronic disease 7. Recently diagnosed esophageal adenocarcinoma 8. Chronic kidney disease, proteinuria Patient was seen and examined this morning, responding to verbal stimulus by opening eyes, no purposeful movement. Overnight reports for 2 seizures at 4:30 and 5:30 last for 1-2 minutes each tonic-clonic seizure. 24 Hour Events: Temperature 98.6, MAXIMUM TEMPERATURE 100 Heart rate lowest 77, highest 100 sinus rhythm Blood pressure lowest 155/67, highest 175/97 AC 550/20//30% saturating 91% Intake 3185, output 6725 Tolerating tube feeds well Objective Vital Signs & I&O Last 8 Hrs of Vitals and I&O: 11 Exam General Appearance: intubated Head: atraumatic, normal appearance Ears, Nose, Throat: normal pharynx, normal ENT inspection Neck: normal inspection, supple, full range of motion Respiratory: chest non-tender Cardiovascular: regular rate/rhythm Gastrointestinal: normal bowel sounds, soft, non-tender Extremities: normal inspection, normal capillary refill, edema +1 x4 Cranial Nerves: PERRL Other Physical Findings: Hypertonia, no reflexes could be elected Weaning Parameters NIF: 29 Minute Volume: 11 Resp rate: 10 Vt: 705 Heart Rate: 80 Current Medications: Current Medications Sig/Silvana Start time Last Medication Dose Route Stop Time Status Admin Albuterol Sulfate 3 ML BID 12/09 1000 AC 12/14 INH 0833 Artificial Tears 2 GTT TID 12/09 2200 AC 12/14 OPH 0939 Cefazolin Sodium 1,000 MG IQ8 12/13 0000 AC 12/14 IV 0939 Furosemide 20 MG ONCE ONE 12/13 1715 DC 12/13 IV PUSH 12/13 1716 1723 Heparin Sodium 5,000 UNIT Q8 12/08 1726 AC 12/14 (Porcine) SC 0629 Insulin Human Regular 0 Q6 12/12 0838 AC 12/12 SC 1136 Levetiracetam 500 MG Q12 12/14 1000 AC 12/14 N/A 1 UNIT IV 1047 Lorazepam 2 MG ONCE ONE 12/14 0545 DC 12/14 IV 12/14 0546 0540 Lorazepam 2 MG ONCE ONE 12/14 0445 DC 12/14 IV 12/14 0446 0437 Losartan Potassium 50 MG DAILY 12/13 1000 AC 12/14 PO 0939 Methylprednisolone 40 MG DAILY 12/13 1000 DC 12/13 IV 0917 Morphine Sulfate 2 MG Q3P PRN 12/13 0900 AC 12/14 IV 1219 Pantoprazole Sodium 40 MG DAILY 12/08 1845 AC 12/14 IV 0939 Phosphate 250 MG ONCE ONE 12/14 0745 DC 12/14 PO 12/14 0746 0939 Prednisone 40 MG DAILY 12/14 1000 AC 12/14 PO 0939 Impression/Plan Impression/Problem List Impression: Mr. Monge is 51-year-old gentleman with past medical history significant for diastolic CHF, hypertension, COPD with 2 L home oxygen dependence, ILD, history of large with prolonged mechanical ventilation, CKD, neuropathy that presented to the emergency room via ambulance after family found him unresponsive. Patient went into cardiac arrest and bradycardia CPR was administered with 2 rounds of epinephrine, subsequently he had return of rhythm and pulses he was intubated and a right femoral central line was placed, Levothroid drip was started. Patient was admitted to ICU for close monitoring. Problem list: #Acute hypoxic respiratory failure secondary to aspiration pneumonia #Septic shock #Status post cardiac arrest and CPR #Anemia of chronic disease #Recently diagnosed esophageal cancer #Acute kidney injury #Nephrotic syndrome Cardiology -Off Levofed -Blood pressure and heart rate are stable -Continue morphine 2 mg every 4 when necessary for opioid withdrawl -Cardiac consultation was obtained, thanks recommendation -Echo 12/08/16 CONCLUSIONS 1. This was a technically difficult study due to the patient's body habitus and clinical status. 2. Minimal to mild aortic sclerosis is present with no valvular stenosis or insufficiency. 3. Mitral leaflet thickeining is present with mild anular calcification and mild mitral insufficiency. 4. A very small pericardial effusion is present. 5. The left ventricular chamber size is normal with an ejection fraction of 55- 60%. Abnormal septal motion is present suggestive of the presence of pulmonary hypertension. 6. The right heart structures were not optimally visualized. Mild tricuspid insufficiency is present but the RV systolic pressure was not accurately assessed. ID -Cefazolin 1000 mg Q8, leukocytosis without bands, spike a fever yesterday MAXIMUM TEMPERATURE 100, will obtain ID consultation -Patient was initially on ceftriaxone and vancomycin for aspiration pneumonia, recent history of hospitlization in september -Afubrile -1 set of blood culture and sputum culture are positive for methicillin sensitive staph aureus Respiratory -We will switch to by mouth prednisone with slow tapering 40 mg daily -Mechanical ventilation FiO2 30%, PEEP of 5 saturating well, chest x-ray daily -Ventilation bundle Neurology -Reports for 2 seizure episodes overnight that required Ativan -Neuro consultation was obtained, thanks recommendation -Keppra 500 mg twice a day IV was started today -Will obtain EEG and CT head -EEG 12/09 Impression: Burst/suppression pattern, often seen in severe anoxic encephalopathy, and usually associiated with a poor prognosis -2 CT scans head did not show acute intracranial changes -Guarding prognosis Hematology oncology -Patient was recently diagnosed with esophageal cancer T1N2 -Oncology consultation was obtained, thanks for recommendation Nephrology -Patient has history of nephrotic syndrome, albumin on admission 1.5, urine albumin more than 300 -Progressing pedal edema -Positive fluid balance by almost 1 L -Continue losartan 50 mg daily to lower intraglomerular pressure and hence reduce protien excretion Metabolic -Replete electrolytes as needed Alimentary -Nothing by mouth -Nutrition consultation was obtained for tube feeding *Chext x ray today 12/14 revealed 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 patient is known to have this problem propably related to chronic steroid vs drug use DVT prophylaxis heparin subcutaneous Code full Consultation cardiology, neuro, nutrition, case management social worker Problem List: 1. Neuropathy 2. Esophageal cancer 3. Septic shock 4. Aspiration pneumonia 5. Seizure Pain Ratin Tomorrow's Labs & Rationales: ICU bundle, CBC, CXR Plan DVT/Prophylaxis: mechanical, pharmacological
[2016-12-14 08:00] VITALS: BP 159/70
--- NOTE | 2016-12-14 08:35 | RADIOLOGY REPORT ---
EXAMINATION: XR PORTABLE CHEST CLINICAL INFORMATION: Endotracheal tube placement. COMPARISON: 12/13/2016 TECHNIQUE: Portable frontal view of the chest was obtained. FINDINGS: Endotracheal tube terminates approximately 5 cm above the luis enrique. Nasogastric tube courses into the stomach. Diffuse interstitial abnormality and small pleural effusions likely representing mild pulmonary edema appears similar. Presumed bilateral humeral head avascular necrosis with subchondral collapse on the left. IMPRESSION: Endotracheal tube terminates 5 cm above the luis enrique. Stable pulmonary edema. 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
--- NOTE | 2016-12-14 08:43 | PN- Neurology ---
Subjective Subjective: d/w Dr Adamson. 51 y o M w/ hx chronic interstitial lung dz after inhalational injury, now w anoxic encephalopathy after cardiac-resp arrest. Initial EEG showing burst-suppression. Hd CT 12-08 & 12-09 unremarkable. Subsequent improvement in level of resposonsiveness. Overnight, had 2 gen tc szs, each lasting 1-2 minutes, for which he was given ativan 2 mg x 2. Staff feels there may be some visual tracking at times, and he opens his eyes more readily when family members are present. Review of Systems: Unobtainable. Remains intubated Objective Vital Signs and I&Os Vital Signs Date Time Temp Pulse Resp B/P B/P Pulse O2 O2 Flow FiO2 Mean Ox Delivery Rate 12/14 0609 12/14 0400 96 Ventilator 30% 12/14 0256 30 12/14 0107 30 12/14 0000 95 Ventilator 35% 12/13 2309 30 12/13 2057 30 12/13 2000 94 Ventilator 30% 12/13 1655 30 12/13 1600 93 Ventilator 30% 12/13 1600 98.3 88 25 130/74 93 Ventilator 30% 12/13 1425 30 12/13 1200 96 Ventilator 30% 12/13 1122 30 12/13 1104 79 156/74 Intake & Output 12/14 1600 12/14 0800 12/14 0000 12/13 1600 12/13 0800 12/13 0000 Intake Total 1010 1080 2572 437 0204 Output Total 1150 3325 2250 700 1400 Balance -140 -2245 -1155 116 -375 Intake, IV 0 75 0 270 Intake, Oral 0 Intake, Other 360 120 Intake, Tube 625 540 536 535 Feeding Intake, Tube 385 720 360 280 220 Irrigant Number 1 0 0 1 Bowel Movements Output, Urine 1150 3325 2250 700 1400 Patient 185 lb Weight Weight Bed scale Measurement Method Physical Exam: Opens eyes to voice, but no visual tracking. Ocular alignment intermittently esotropic. Leftward gaze preference. Pupils equal round and reactive to light Grimaces to noxious stimuli applied to upper extremities Decerebrate posturing of the left upper extremity with nailbed pressure Increased tone left upper extremity and both lower extremities Reduced tone right upper extremity Current Medications: Current Medications Sig/Silvana Start time Last Medication Dose Route Stop Time Status Admin Albuterol Sulfate 3 ML BID 12/09 1000 AC 12/14 INH 0833 Artificial Tears 2 GTT TID 12/09 2200 AC 12/13 OPH 2225 Cefazolin Sodium 1,000 MG IQ8 12/13 0000 AC 12/14 IV 0011 Furosemide 20 MG ONCE ONE 12/13 1715 DC 12/13 IV PUSH 12/13 1716 1723 Furosemide 20 MG ONCE ONE 12/13 0900 DC 12/13 IV 12/13 0901 0917 Heparin Sodium 5,000 UNIT Q8 12/08 1726 AC 12/14 (Porcine) SC 0629 Insulin Human Regular 0 Q6 12/12 0838 AC 12/12 SC 1136 Levetiracetam 500 MG Q12 12/14 1000 AC N/A 1 UNIT IV Lorazepam 2 MG ONCE ONE 12/14 0545 DC 12/14 IV 12/14 0546 0540 Lorazepam 2 MG ONCE ONE 12/14 0445 DC 12/14 IV 12/14 0446 0437 Lorazepam 2 MG Q6-PRN PRN 12/12 2245 DC 12/13 IV 0453 Losartan Potassium 50 MG DAILY 12/13 1000 AC 12/13 PO 1104 Methylprednisolone 40 MG DAILY 12/13 1000 AC 12/13 IV 0917 Morphine Sulfate 2 MG Q3P PRN 12/13 0900 AC 12/14 IV 0153 Morphine Sulfate 2 MG Q4P PRN 12/10 1100 DC 12/13 IV 0217 Pantoprazole Sodium 40 MG DAILY 12/08 1845 AC 12/13 IV 0917 Phosphate 250 MG ONCE ONE 12/14 0745 DC PO 12/14 0746 Results Last 24 Hours of Lab Results: Laboratory Tests 12/14 0500 Chemistry Sodium (137 - 145 mmol/L) 139 Potassium (3.5 - 5.1 mmol/L) 4.1 Chloride (98 - 107 mmol/L) 110 H Carbon Dioxide (22 - 30 mmol/L) 25 Anion Gap (5 - 16) 3 L BUN (9 - 20 mg/dL) 29 H Creatinine (0.7 - 1.2 mg/dL) 0.7 Estimated GFR (>60 ml/min) > 60 Glucose (65 - 99 mg/dL) 83 Calcium (8.4 - 10.2 mg/dL) 7.8 L Phosphorus (2.5 - 4.5 mg/dL) 3.3 Magnesium (1.6 - 2.3 mg/dL) 2.1 Total Bilirubin (0.2 - 1.3 mg/dL) 0.1 L AST (17 - 59 U/L) 27 ALT (21 - 72 U/L) 34 Albumin (3.5 - 5.0 g/dL) 1.9 L Hematology CBC w Diff MAN DIFF ORDERED WBC (4.8 - 10.8 /CUMM) 17.8 H RBC (4.70 - 6.10 /CUMM) 3.65 L Hgb (14.0 - 18.0 G/DL) 9.6 L Hct (42 - 52 %) 29.5 L MCV (80.0 - 94.0 FL) 80.8 MCH (27.0 - 31.0 PG) 26.2 L RDW (11.5 - 14.5 %) 18.0 H Plt Count (130 - 400 /CUMM) 360 MPV (7.4 - 10.4 FL) 7.0 L Gran % (42.2 - 75.2 %) 68.5 Lymphocytes % (20.5 - 51.1 %) 22.7 Monocytes % (1.7 - 9.3 %) 8.1 Eosinophils % (0 - 5 %) 0.6 Basophils % (0.0 - 2.0 %) 0.1 Absolute Granulocytes (1.4 - 6.5 /CUMM) 12.2 H Absolute Lymphocytes (1.2 - 3.4 /CUMM) 4.0 H Absolute Monocytes (0.10 - 0.60 /CUMM) 1.4 H Absolute Eosinophils (0.0 - 0.7 /CUMM) 0.1 Absolute Basophils (0.0 - 0.2 /CUMM) 0 Platelet Estimate (ADEQUATE) ADEQUATE Hypochromic-Microcytic 1+ PUBS MCHC (33.0 - 37.0 G/DL) 32.5 L Recent Imaging Studies: Hd CT 12-09 FINDINGS: There is substantial motion on the acquisitions. There is no evidence of acute intracranial hemorrhage or territorial infarction. No abnormal mass effect or midline shift is seen. Ham to white matter differentiation is well preserved. No extra-axial fluid collections are identified. The ventricles are normal in size. There is no gross abnormal attenuation within the brain parenchyma. The cerebellar tonsils appear minimally low-lying and there may be some crowding at the craniocervical junction, not ideally assessed, but unchanged. No acute osseous abnormalities are visualized. There is mucosal thickening in the frontal, ethmoid, sphenoid, and maxillary sinuses in the setting of intubation. Nasogastric tube extends via the left naris. The mastoid air cells and middle ear cavities are clear. No acute soft tissue abnormalities are evident. IMPRESSION: Motion degraded study. No acute intracranial pathology. Inflammatory disease within the paranasal sinuses in the setting of intubation. DICTATED BY: ESTELLA LIRIANO MD DATE/TIME DICTATED:12/09/161418 EEG 5-25 Interpretation: EEG in comatose state Throughout the recording, paroxysmal bursts of sharp and slow complexes, lasting 1 to 1 1/2 seconds are followed by relative loss of cerebral activity for 3-4 seconds in duration Impression: Burst/suppression pattern, often seen in severe anoxic encephalopathy, and usually associiated with a poor prognosis DICTATED BY: MERCEDES WADE MD DATE/TIME DICTATED:12/09/161740 Assessment/Plan Assessment: Day 6 status post anoxic encephalopathy due to cardiac/respiratory arrest and a 51-year-old man with chronic interstitial lung disease Now with new onset seizures Minimally conscious state with 3 limb spasticity and left gaze preference raises possibility of a concomitant focal cerebral ischemic event Plan: Repeat head CT Repeat EEG Keppra 500 mg every 12 hours Will follow Discussed with housestaff and critical care attendings
--- NOTE | 2016-12-14 08:49 | PN- CRCU ---
Subjective HPI/Critical Care Issues: The patient remains intubated, on mechanical ventilation. He reportedly had a seizure and was placed on IV Keppra. The patient does not have meaningful interactions. He was febrile overnight. He remains on Cefazolin. Objective Current Medications: Current Medications Sig/Silvana Start time Last Medication Dose Route Stop Time Status Admin Albuterol Sulfate 3 ML BID 12/09 1000 AC 12/13 INH 2054 Artificial Tears 2 GTT TID 12/09 2200 AC 12/13 OPH 2225 Cefazolin Sodium 1,000 MG IQ8 12/13 0000 AC 12/14 IV 0011 Furosemide 20 MG ONCE ONE 12/13 1715 DC 12/13 IV PUSH 12/13 1716 1723 Furosemide 20 MG ONCE ONE 12/13 0900 DC 12/13 IV 12/13 0901 0917 Heparin Sodium 5,000 UNIT Q8 12/08 1726 AC 12/14 (Porcine) SC 0629 Insulin Human Regular 0 Q6 12/12 0838 AC 12/12 SC 1136 Levetiracetam 500 MG Q12 12/14 1000 AC N/A 1 UNIT IV Lorazepam 2 MG ONCE ONE 12/14 0545 DC 12/14 IV 12/14 0546 0540 Lorazepam 2 MG ONCE ONE 12/14 0445 DC 12/14 IV 12/14 0446 0437 Lorazepam 2 MG Q6-PRN PRN 12/12 2245 DC 12/13 IV 0453 Losartan Potassium 50 MG DAILY 12/13 1000 AC 12/13 PO 1104 Methylprednisolone 40 MG DAILY 12/13 1000 AC 12/13 IV 0917 Morphine Sulfate 2 MG Q3P PRN 12/13 0900 AC 12/14 IV 0153 Morphine Sulfate 2 MG Q4P PRN 12/10 1100 DC 12/13 IV 0217 Pantoprazole Sodium 40 MG DAILY 12/08 1845 AC 12/13 IV 0917 Phosphate 250 MG ONCE ONE 12/14 0745 DC PO 12/14 0746 Vital Signs & I&O Last 24 Hrs of Vitals and I&O: Vital Signs Date Time Temp Pulse Resp B/P B/P Pulse O2 O2 Flow FiO2 Mean Ox Delivery Rate 12/14 0609 30 12/14 0400 96 Ventilator 30% 12/14 0256 30 12/14 0107 30 12/14 0000 95 Ventilator 35% 12/13 2309 30 12/13 2057 30 12/13 2000 94 Ventilator 30% 12/13 1655 30 12/13 1600 93 Ventilator 30% 12/13 1600 98.3 88 25 130/74 93 Ventilator 30% 12/13 1425 30 12/13 1200 96 Ventilator 30% 12/13 1122 30 12/13 1104 79 156/74 Intake & Output 12/14 1600 12/14 0800 12/14 0000 Intake Total 1010 1080 Output Total 1150 3325 Balance -140 -2245 Intake, IV 0 Intake, Other 360 Intake, Tube 625 Feeding Intake, Tube 385 720 Irrigant Number 1 Bowel Movements Output, Urine 1150 3325 Physical Exam General Appearance intubated, opens eyes to external stimuli Skin dry skin on bilateral lower extremities Skin Temp/Moisture Exam: Cool/Dry Sepsis Skin Exam (color): Mottled, Pale HEENT Atraumatic Cardiovascular Regular Rate, Normal S1, Normal S2 Lungs b/l ronchii and rales Abdomen Normal Bowel Sounds, Soft, No Tenderness Extremities Clubbing noted Results Last 24 Hrs of Lab Results: Laboratory Tests 12/14/16 0500: Anion Gap 3 L, Estimated GFR > 60, Glucose 83, Calcium 7.8 L, Phosphorus 3.3, Magnesium 2.1, Total Bilirubin 0.1 L, AST 27, ALT 34, Albumin 1.9 L, CBC w Diff MAN DIFF ORDERED, RBC 3.65 L, MCV 80.8, MCH 26.2 L, RDW 18.0 H, MPV 7.0 L, Gran % 68.5, Lymphocytes % 22.7, Monocytes % 8.1, Eosinophils % 0.6, Basophils % 0.1, Absolute Granulocytes 12.2 H, Absolute Lymphocytes 4.0 H, Absolute Monocytes 1.4 H, Absolute Eosinophils 0.1, Absolute Basophils 0, Platelet Estimate ADEQUATE, Hypochromic-Microcytic 1+, PUBS MCHC 32.5 L Diagnostic Data CXR Findings: Endotracheal tube terminates 5 cm above the luis enrique. Stable pulmonary edema. 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 Impression/Plan Impression/Plan Impression/Plan: 1. Respiratory failure and septic shock due to aspiration pneumonia. Sputum positive for group B strep and staph aureus. BC positive for group B strep. 2. Leukocytosis and fever despite IV antibiotics, r/o new source of infection. 3. Status post cardiac arrest and CPR with anoxic brain injury. 4. History of COPD, ARDS and ILD with 2 L home oxygen dependence. 5. Anemia of chronic disease, without active bleeding. 6. Recently diagnosed esophageal cancer - awaiting chemoradiation. 7. DEE - Cr improved. 8. History of nephrotic syndrome. 9. Protein calorie malnutrition. 10. Chronic pain with opiate dependency. 11. Known diastolic heart failure. 12. Known history of hypertension. Recommendations: * Decrease respiratory rate to 14 breaths per minute. * Begin weaning trials. * Continue tube feeds at goal. * Change to prednisone 40 mg daily, will taper off slowly. * Continue total respiratory care, and nebulizer treatments. * Accu-Cheks to be monitored. * Continue cefazolin, please request an ID consult regarding persistent leukocytosis and fever while on steroids and antibiotic therapy. * Continue DVT/GI prophylaxis - ventilator bundle. * Follow up cardiology and neurology's recommendations. * Continue all supportive care. * I will have a family meeting later today, noting the patient has the potential for a poor prognosis.
--- NOTE | 2016-12-14 12:52 | PN- Cardiology ---
Subjective Subjective: The patient remains intubated and unresponsive. He had a seizure and was started on Keppra. Losartan has been restarted. He is receiving IV antibiotic therapy. Objective Vital Signs and I&Os Vital Signs Date Time Temp Pulse Resp B/P B/P Pulse O2 O2 Flow FiO2 Mean Ox Delivery Rate 12/14 1100 40 12/14 0939 95 158/90 12/14 0830 30 12/14 0800 93 Ventilator 30% 12/14 0800 99.3 93 21 159/70 93 Ventilator 30% 12/14 0609 30 12/14 0400 96 Ventilator 30% 12/14 0256 30 12/14 0107 30 12/14 0000 95 Ventilator 35% 12/13 2309 30 12/13 2057 30 12/13 2000 94 Ventilator 30% 12/13 1655 30 12/13 1600 93 Ventilator 30% 12/13 1600 98.3 88 25 130/74 93 Ventilator 30% 12/13 1425 30 Intake & Output 12/14 1600 12/14 0800 12/14 0000 12/13 1600 12/13 0800 12/13 0000 Intake Total 1010 1080 7537 124 5466 Output Total 1150 3325 2250 700 1400 Balance -140 -2245 -1155 116 -375 Intake, IV 0 75 0 270 Intake, Oral 0 Intake, Other 360 120 Intake, Tube 625 540 536 535 Feeding Intake, Tube 385 720 360 280 220 Irrigant Number 1 0 0 1 Bowel Movements Output, Urine 1150 3325 2250 700 1400 Patient 18 lb 7 oz 185 lb Weight Weight Bed scale Bed scale Measurement Method Physical Exam: Gen: NAD HEENT: normal Lungs: Scattered rhonchi Heart: RRR, S1, S2, 1/6 systolic murmur Abdomen: Soft, nontender, no masses Extremities: Bilateral edema Neuro: Decreased responsiveness Current Medications: Current Medications Sig/Silvana Start time Last Medication Dose Route Stop Time Status Admin Albuterol Sulfate 3 ML BID 12/09 1000 AC 12/14 INH 0833 Artificial Tears 2 GTT TID 12/09 2200 AC 12/14 OPH 0939 Cefazolin Sodium 1,000 MG IQ8 12/13 0000 AC 12/14 IV 0939 Furosemide 20 MG ONCE ONE 12/13 1715 DC 12/13 IV PUSH 12/13 1716 1723 Heparin Sodium 5,000 UNIT Q8 12/08 1726 AC 12/14 (Porcine) SC 0629 Insulin Human Regular 0 Q6 12/12 0838 AC 12/12 MA 1136 Levetiracetam 500 MG Q12 12/14 1000 AC 12/14 N/A 1 UNIT IV 1047 Lorazepam 2 MG ONCE ONE 12/14 0545 DC 12/14 IV 12/14 0546 0540 Lorazepam 2 MG ONCE ONE 12/14 0445 DC 12/14 IV 12/14 0446 0437 Losartan Potassium 50 MG DAILY 12/13 1000 AC 12/14 PO 0939 Methylprednisolone 40 MG DAILY 12/13 1000 DC 12/13 IV 0917 Morphine Sulfate 2 MG Q3P PRN 12/13 0900 AC 12/14 IV 1219 Pantoprazole Sodium 40 MG DAILY 12/08 1845 AC 12/14 IV 0939 Phosphate 250 MG ONCE ONE 12/14 0745 DC 12/14 PO 12/14 0746 0939 Prednisone 40 MG DAILY 12/14 1000 AC 12/14 PO 0939 Results Last 48 Hrs of Labs/Mics: Laboratory Tests 12/14/16 0500: Anion Gap 3 L, Estimated GFR > 60, Glucose 83, Calcium 7.8 L, Phosphorus 3.3, Magnesium 2.1, Total Bilirubin 0.1 L, AST 27, ALT 34, Albumin 1.9 L, CBC w Diff MAN DIFF ORDERED, RBC 3.65 L, MCV 80.8, MCH 26.2 L, RDW 18.0 H, MPV 7.0 L, Gran % 68.5, Lymphocytes % 22.7, Monocytes % 8.1, Eosinophils % 0.6, Basophils % 0.1, Absolute Granulocytes 12.2 H, Absolute Lymphocytes 4.0 H, Absolute Monocytes 1.4 H, Absolute Eosinophils 0.1, Absolute Basophils 0, Platelet Estimate ADEQUATE, Hypochromic-Microcytic 1+, PUBS MCHC 32.5 L 12/13/16 0525: Anion Gap 3 L, Estimated GFR > 60, Glucose 92, Calcium 7.6 L, Phosphorus 3.2, Magnesium 2.7 H, Total Bilirubin 0.1 L, AST 26, ALT 28, Albumin 1.8 L, CBC w Diff MAN DIFF ORDERED, RBC 3.49 L, MCV 81.0, MCH 26.7 L, RDW 18.2 H, MPV 7.9, Gran % 75.4 H, Lymphocytes % 17.8 L, Monocytes % 5.4, Eosinophils % 0.1, Basophils % 1.3, Absolute Granulocytes 14.8 H, Segmented Neutrophils 81 H, Absolute Lymphocytes 3.5 H, Lymphocytes 12 L, Monocytes 7, Absolute Monocytes 1.1 H, Absolute Eosinophils 0, Absolute Basophils 0.3, Platelet Estimate ADEQUATE, Normochromic RBCs VERIFIED, Poikilocytosis 1+, Ovalocytes 1+, Stomatocytes FEW, Elliptocytes FEW, PUBS MCHC 33.0, Fld Total RBCs Counted 100 Recent Imaging Studies: Chest x-ray: Endotracheal tube terminates 5 cm above the luis enrique. Stable pulmonary edema. 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 Assessment/Plan Assessment/Plan Assessment: 1. Status post Canelo pulmonary arrest, likely secondary to primary pulmonary event 2. Respiratory failure with possible aspiration pneumonia 3. Probable anoxic encephalopathy Plan: * Continue supportive care * Continue losartan for hypertension * Family meeting planned to discuss further plans Continue telemetry? Yes
--- NOTE | 2016-12-14 14:18 | CT SCAN REPORT ---
EXAMINATION: CT HEAD WITHOUT CONTRAST CLINICAL INFORMATION: Anoxic brain injury. Prolonged intubation status post CPR. COMPARISON: CT scan of the head dated 12/09/2016, 12/08/2016, and 10/06/2016. TECHNIQUE: Contiguous axial imaging was performed from the skull base to vertex without intravenous administration of contrast. DLP: 701.90 mGy-cm FINDINGS: Evaluation is limited by motion artifact. There is no evidence of acute intracranial hemorrhage or territorial infarction. No abnormal mass effect or midline shift is seen. Ham to white matter differentiation is well preserved. No extra-axial fluid collections are identified. The ventricles are normal in size. There is no abnormal attenuation within the brain parenchyma. The osseous structures and soft tissues are normal. An air-fluid level is seen within the left maxillary sinus. Mucosal thickening in the sphenoid sinuses is noted, right greater than left. The mastoid air cells and remainder of the visualized portions of the paranasal sinuses are well aerated. IMPRESSION: 1. No acute intracranial pathology. 2. Sinus disease. 3. Evaluation limited by motion artifact.
--- NOTE | 2016-12-14 15:45 | Cons- Infect Disease ---
General Information and HPI Consulting Request Date of Consult: 12/14/16 Requested By: Fabio MEZA MD Reason for Consult: Fever/persistent leukocytosis Source of Information: family, old records Exam Limitations: clinical condition History of Present Illness: This is a 51-year-old man with a history of diabetes, with a secondary neuropathy, diastolic CHF, COPD, maintained on 2 L of oxygen, interstitial lung disease, maintained on 10 mg of prednisone daily, chronic kidney disease, chronic pain, maintained on oxycodone, last hospitalized 2 months prior to admission with an opiate overdose, found to have a GI bleed, with an upper endoscopy revealing any esophageal mass, found to be an adenocarcinoma, admitted on December 08 after he was found at home unresponsive with agonal respirations. On admission he was afebrile, bradycardic/pulseless. He was intubated, with thick yellow-green secretions noted from the ET tube, and he suffered a cardiac arrest. Laboratory data revealed a white blood cell count of 20,000, with 25 bands, BUN/creatinine 16 and 1.8, sodium 130, potassium 3.3, alk phosphatase 163. Urinalysis 3-5 RBC/1-3 WBCs. CXR revealed chronic increased interstitial markings. CT of the chest revealed multifocal airspace opacities with the most dense consolidation in the left lower lobe with prominent air bronchograms He was begun on Vancomycin and Ceftazidime and Solumedrol. On December 09 one blood culture was reported positive for gram-positive cocci in pairs and chains, which has been identified as Group B strep. On December 13 he was changed to Cefazolin and this morning he was changed to prednisone. He has been afebrile until overnight last night when he spiked a fever to 100.7. His white blood cell count has been fluctuating, up to 26,000 on December 09, 11,000 on December 12 and 18,000 most recently. He has been evaluated by Neurology, with an EEG on December 09 revealing a burst/ suppression pattern, often seen in severe anoxic encephalopathy, and discussion regarding withdrawal of care is in place, possibly for the a.m. He is unable to provide any history secondary to his condition. Allergies/Medications Allergies: Coded Allergies: Iodinated Contrast Media - Oral and (IODINATED CONTRAST MEDIA - IV DYE) (RED RASH TOLERATES WITH BENADRYL 01/12/16) Home Med List: Albuterol Sulfate (Proair Hfa) 90 MCG HFA.AER.AD 2 PUF INH Q4-6 PRN PRN BREATHING PROBLEMS (Reported) Albuterol Sulfate 2.5 MG/3 ML (0.083 %) VIAL.NEB 1 Vial INH/[place] PRN COPD ( Reported) Alendronate Sodium (Fosamax) 70 MG TABLET 1 TAB PO QW OSTEOPOROSIS (Reported) in the morning, at least 30 minutes before the first food, beverage, or medication of the day Amitriptyline HCl 150 MG TABLET 1 TAB PO QPM SLEEP (Reported) Baclofen 10 MG TABLET 1 TAB PO TID MUSCLE SPASMS (Reported) NO GIVEN IN THE HOSPITAL Fluticasone-Salmeterol (Advair 100-50 Diskus) 100 MCG-50 MCG/DOSE BLST.W.DEV 1 PUF INH BID COPD (Reported) NOT GIVEN IN THE HOSPITAL Furosemide 40 MG TABLET 1 TAB PO BID EDEMA (Reported) Gabapentin (Neurontin) 800 MG TABLET 1 TAB PO 4X PER DAY NEUROPATHY (Reported ) Losartan Potassium (Cozaar) 50 MG TABLET 1 TAB PO DAILY BP (Reported) [METOLAZONE] EDEMA (Reported) Oxycodone HCl 30 MG TABLET 1 TAB PO TIDPRN PAIN (Reported) Oxycodone HCl (Oxycontin) 40 MG TAB.ER.12H 1 TAB PO BID PAIN (Reported) Prednisone 10 MG TABLET 1 TAB PO DAILY LUNGS (Reported) Past History Travel History Traveled to [place] past 21 day No Medical History Blood Transfusion Hx: Yes Neurological: peripheral neuropathy (critical illness neuropathy) EENT: NONE Cardiovascular: CHF, hypertension, hyperlipidemia, right-sided heart failure Respiratory: COPD, 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), ARDS and prolonged mechanical ventilation Gastrointestinal: hx OB+ stool Hepatic: NONE Renal: chronic kidney disease Musculoskeletal: OSTEOPENIA 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 Psychiatric: depression Endocrine: diabetes Blood Disorders: NONE (multifactorial), anemia Cancer(s): NONE 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 Cerebral hemorrhage MOTHER ([employer]). Age 74. BROTHER, Age 49. BROTHER ([employer]). MGF, , Age 80; Cause: Gastric carcinoma. Relation not specified for: gastric cancer Psychosocial History Where Do You Live? Home Who Do You Live With? spouse, child Services at Home: Oxygen Primary Language: Arabic Smoking Status: Unknown If Ever Smoked Living Will? yes Power of Chemical Technician/HCP? no Functional Ability ADLs Independent: dressing, eating, toileting, bathing. Ambulation: cane IADLs Independent: shopping, housework, finances, food prep, telephone, transportation , medication admin. ECHO Results (as available) Date of last Echo 12/08/16 EF% 60 Review of Systems Comments Unobtainable Exam & Diagnostic Data Last 24 Hrs of Vital Signs/I&O Vital Signs Date Time Temp Pulse Resp B/P B/P Pulse O2 O2 Flow FiO2 Mean Ox Delivery Rate 12/14 1200 98 Ventilator 40% 12/14 1100 40 12/14 0939 95 158/90 12/14 0830 30 12/14 0800 93 Ventilator 30% 12/14 0800 99.3 93 21 159/70 93 Ventilator 30% 12/14 0609 30 12/14 0400 96 Ventilator 30% 12/14 0256 30 12/14 0107 30 12/14 0000 95 Ventilator 35% 12/13 2309 30 12/13 2057 30 12/13 2000 94 Ventilator 30% 12/13 1655 30 12/13 1600 93 Ventilator 30% 12/13 1600 98.3 88 25 130/74 93 Ventilator 30% Intake & Output 12/14 1600 12/14 0800 05 0000 Intake Total 1040 1010 1080 Output Total 1050 1150 3325 Balance -10 -140 -2245 Intake, IV 160 0 Intake, Oral 0 Intake, Other 60 360 Intake, Tube 460 625 Feeding Intake, Tube 360 385 720 Irrigant Number 1 1 Bowel Movements Output, Urine 1050 1150 3325 Patient 18 lb 7 oz Weight Weight Bed scale Measurement Method Physical Exam Other Physical Findings: He is unresponsive, with eyes open, on the ventilator. MAXIMUM TEMPERATURE 100.7 on steroids. Skin reveals no rash. HEENT exam is negative. Neck is supple with no adenopathy. Lungs bilateral rhonchi. Heart regular rhythm with no murmur. Abdomen is soft, nontender with positive bowel sounds. Back no CVA tenderness. Extremities chronic changes to both lower extremities, with superficial ulcerations, with no cyanosis, clubbing or edema. Neuro is without focality. Smith catheter is in place. Last 24 Hours of Lab Results: Laboratory Tests 12/14 0500 Chemistry Sodium (137 - 145 mmol/L) 139 Potassium (3.5 - 5.1 mmol/L) 4.1 Chloride (98 - 107 mmol/L) 110 H Carbon Dioxide (22 - 30 mmol/L) 25 Anion Gap (5 - 16) 3 L BUN (9 - 20 mg/dL) 29 H Creatinine (0.7 - 1.2 mg/dL) 0.7 Estimated GFR (>60 ml/min) > 60 Glucose (65 - 99 mg/dL) 83 Calcium (8.4 - 10.2 mg/dL) 7.8 L Phosphorus (2.5 - 4.5 mg/dL) 3.3 Magnesium (1.6 - 2.3 mg/dL) 2.1 Total Bilirubin (0.2 - 1.3 mg/dL) 0.1 L AST (17 - 59 U/L) 27 ALT (21 - 72 U/L) 34 Albumin (3.5 - 5.0 g/dL) 1.9 L Hematology CBC w Diff MAN DIFF ORDERED WBC (4.8 - 10.8 /CUMM) 17.8 H RBC (4.70 - 6.10 /CUMM) 3.65 L Hgb (14.0 - 18.0 G/DL) 9.6 L Hct (42 - 52 %) 29.5 L MCV (80.0 - 94.0 FL) 80.8 MCH (27.0 - 31.0 PG) 26.2 L RDW (11.5 - 14.5 %) 18.0 H Plt Count (130 - 400 /CUMM) 360 MPV (7.4 - 10.4 FL) 7.0 L Gran % (42.2 - 75.2 %) 68.5 Lymphocytes % (20.5 - 51.1 %) 22.7 Monocytes % (1.7 - 9.3 %) 8.1 Eosinophils % (0 - 5 %) 0.6 Basophils % (0.0 - 2.0 %) 0.1 Absolute Granulocytes (1.4 - 6.5 /CUMM) 12.2 H Absolute Lymphocytes (1.2 - 3.4 /CUMM) 4.0 H Absolute Monocytes (0.10 - 0.60 /CUMM) 1.4 H Absolute Eosinophils (0.0 - 0.7 /CUMM) 0.1 Absolute Basophils (0.0 - 0.2 /CUMM) 0 Platelet Estimate (ADEQUATE) ADEQUATE Hypochromic-Microcytic 1+ PUBS MCHC (33.0 - 37.0 G/DL) 32.5 L Last 24 Hours of Alonso Results: Blood cultures December 08 one bottle positive for Group B strep Urine culture December 08 negative Sputum culture December 08 positive for heavy growth of Group B strep, light growth of Staph aureus and scant growth of yeast Urine strep pneumo antigen and Legionella antigen December 08 negative Diagnostic Data Recent Imaging Findings: CT of the head December 14 no evidence of an acute intracranial hemorrhage or infarct ; air-fluid level within the left maxillary sinus Chest x-ray December 14 stable pulmonary edema, with diffuse interstitial densities and small pleural effusions CT of the chest December 08 multifocal airspace opacities with the most dense consolidation in the left lower lobe with prominent air bronchograms Assessment/Plan Assessment/Plan Impression: This is a 51-year-old man with multiple medical problems including diabetes, CHF and COPD, 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 The recent fever is of unclear etiology. He has not been recultured, but a health care associated infection must be considered. Seeding of the Group B strep to another focus, for example his humeral heads, with avascular necrosis noted, or his heart valves could be considered as well. His elevated white blood cell count may be secondary to steroids or, possibly, to a new infection. His prognosis is quite poor and discussion regarding withdrawal of care is noted; therefore further evaluation for his recent fever and leukocytosis will likely not change his overall status. Suggestion: 1. Await decision regarding overall level of care 2. Increase Cefazolin to 2 g IV every 8 hours pending above Consult Acknowledgment - Thank you for your consult request.
[2016-12-14 16:00] VITALS: BP 140/70
--- NOTE | 2016-12-14 19:40 | ELECTROENCEPHALOGRAM REPORT ---
Electroencephalogram Report Electroencephalogram Results Date of service: 12/14/16 Attending MD: Fabio MEZA MD Computer Console Operator: Noel Whittaker EEG Number: [id number] Test Utilizes: 10-20 system, 21 lead 18 channel digital recording Pertinent Hx/Physical/Neuro Findings/Clin Diagnosis: New onset seizures, anoxic-ischemic encephalopathy, prior EEG showed a burst suppression pattern 12/09/16. Inpatient Medications: Current Medications Sig/Silvana Start time Last Medication Dose Route Stop Time Status Admin Albuterol Sulfate 3 ML BID 12/09 1000 AC 12/14 INH 0833 Artificial Tears 2 GTT TID 12/09 2200 AC 12/14 OPH 1555 Cefazolin Sodium 2,000 MG IQ8 12/15 0000 CAN IV Cefazolin Sodium 2 GM IQ8 12/15 0000 AC N/A 1 UNIT IV Cefazolin Sodium 1,000 MG IQ8 12/13 0000 DC 12/14 IV 1555 Heparin Sodium 5,000 UNIT Q8 12/08 1726 AC 12/14 (Porcine) SC 1402 Insulin Human Regular 0 Q6 12/12 0838 AC 12/12 SC 1136 Levetiracetam 500 MG Q12 12/14 1000 AC 12/14 N/A 1 UNIT IV 1047 Lorazepam 2 MG ONCE ONE 12/14 0545 DC 12/14 IV 12/14 0546 0540 Lorazepam 2 MG ONCE ONE 12/14 0445 DC 12/14 IV 12/14 0446 0437 Losartan Potassium 50 MG DAILY 12/13 1000 AC 12/14 PO 0939 Methylprednisolone 40 MG DAILY 12/13 1000 DC 12/13 IV 0917 Morphine Sulfate 2 MG Q3P PRN 12/13 0900 AC 12/14 IV 1800 Pantoprazole Sodium 40 MG DAILY 12/08 1845 AC 12/14 IV 0939 Phosphate 250 MG ONCE ONE 12/14 0745 DC 12/14 PO 12/14 0746 0939 Prednisone 40 MG DAILY 12/14 1000 AC 12/14 PO 0939 Interpretation: The background is now continous with some variability between high amplitude irregular delta and theta activity and more regular 5-7 hertz moderate amplitude theta. At times there appears to be FIRDA (frontal intermittent rythmic delta) suggestive of deep cerebral injury and at other times more random frontal slow movement which may represent eye roving artifact. No epileptiform foci or activity recognized. No evident cerebral reaction to stimuli during the test. Impression: Abnormal with severe generalized slowing but the burst suppression pattern has resolved. No seizure activity recognized.
[2016-12-15] VITALS: BP 137/71
[2016-12-15 05:12] LABS: ABSOLUTE BASOPHIL COUNT 0 /CUMM (0.0-0.2); ABSOLUTE EOSINOPHIL COUNT 0.3 /CUMM (0.0-0.7); ABSOLUTE GRANULOCYTE CT 9.3 /CUMM (1.4-6.5); ABSOLUTE LYMPH COUNT 3.4 /CUMM (1.2-3.4); BASOPHIL % 0.2 % (0.0-2.0); EOSINOPHIL % 2.4 % (0-5); GRANULOCYTE % 66.3 % (42.2-75.2); HEMATOCRIT 27.1 % (42-52); MEAN CORPUSCULAR HGB 26.1 PG (27.0-31.0); MEAN CORPUSCULAR HGB CONC 31.9 G/DL (33.0-37.0); MEAN CORPUSCULAR VOLUME 81.8 FL (80.0-94.0); MEAN PLATELET VOLUME 6.7 FL (7.4-10.4); PLATELET COUNT 297 /CUMM (130-400); RBC DISTRIBUTION WIDTH 18.1 % (11.5-14.5); RED BLOOD CELL CT 3.32 /CUMM (4.70-6.10)
--- NOTE | 2016-12-15 07:15 | PN- Resident CRCU ---
Subjective HPI/CRCU Issues: Follow-up for: 1. Episode of unresponsive at home, possibly after seizure, EEG showing anoxic brain injury 2. Hypoxic respiratory failure possibly secondary to aspiration pneumonia 3. Septic shock 4. Status post cardiac arrest and CPR at home 5. CHF, chronic lower extremity edema 6. Anemia of chronic disease 7. Recently diagnosed esophageal adenocarcinoma 8. Chronic kidney disease, proteinuria Patient was seen and examined this morning, intubated, opens eyes but doesn't follow any command. No overnight events for seizure episodes. Family meeting will be held today for goal of care with Dr. Mckoy. 24 Hour Events: Temperature 97.5, MAXIMUM TEMPERATURE 99.4 Heart rate lowest 73, highest 92 sinus rhythm Blood pressure lowest 125/71, highest 170/85 Intake 3427, output 2950 CPAP pressure 5, FiO2 53% Objective Vital Signs & I&O Last 8 Hrs of Vitals and I&O: Intake & Output 12/15 1600 Intake Total 688 Output Total 1050 Balance -362 Intake, IV 182 Intake, Other 50 Intake, Tube 456 Feeding Number 1 Bowel Movements Output, Urine 1050 Patient 84.623 kg Weight Weight Bed scale Measurement Method Exam General Appearance: intubated Head: atraumatic, normal appearance Ears, Nose, Throat: normal pharynx, normal ENT inspection Neck: normal inspection, supple, full range of motion Respiratory: chest non-tender Cardiovascular: regular rate/rhythm Gastrointestinal: normal bowel sounds, soft, non-tender Extremities: normal inspection, normal capillary refill, normal range of motion, Bilateral LE pedal edema +1 Cranial Nerves: PERRL Weaning Parameters NIF: 29 Minute Volume: 11 Resp rate: 10 Vt: 705 Heart Rate: 80 Current Medications: Current Medications Sig/Silvana Start time Last Medication Dose Route Stop Time Status Admin Albuterol Sulfate 3 ML BID 12/09 1000 DC 12/15 INH 0811 Artificial Tears 2 GTT TID 12/09 2200 DC 12/15 OPH 0943 Cefazolin Sodium 2 GM IQ8 12/15 0000 DC 12/15 N/A 1 UNIT IV 0846 Glycopyrrolate 200 MCG ONE ONE 12/15 1615 DC IV 12/15 1616 Heparin Sodium 5,000 UNIT Q8 12/08 1726 DC 12/15 (Porcine) SC 0545 Insulin Human Regular 0 Q6 12/12 0838 DC 12/12 SC 1136 Levetiracetam 500 MG Q12 12/14 1000 DC 12/15 N/A 1 UNIT IV 0942 Lorazepam 2 MG ONE ONE 12/15 1600 DC 12/15 IV 12/15 1601 1602 Lorazepam 2 MG Q1 NEEDED PRN 12/15 1600 DCD IV Losartan Potassium 50 MG DAILY 12/13 1000 DC 12/15 PO 0944 Morphine Sulfate 100 MG Q24H 12/15 1245 DCD 12/15 Dextrose/Water 100 ML IV 1351 Morphine Sulfate 2 MG Q3P PRN 12/13 0900 DC 12/15 IV 0908 Pantoprazole Sodium 40 MG DAILY 12/08 1845 DC 12/15 IV 0943 Prednisone 30 MG DAILY 12/15 1000 DC 12/15 PO 0943 Prednisone 40 MG DAILY 12/14 1000 DC 12/14 PO 0939 Scopolamine HBr 1 PAT ONE ONE 12/15 1245 DC 12/15 TOP 12/15 1246 1351 Impression/Plan Impression/Problem List Impression: Mr. Monge is 51-year-old gentleman with past medical history significant for diastolic CHF, hypertension, COPD with 2 L home oxygen dependence, ILD, history of large with prolonged mechanical ventilation, CKD, neuropathy that presented to the emergency room via ambulance after family found him unresponsive. Patient went into cardiac arrest and bradycardia CPR was administered with 2 rounds of epinephrine, subsequently he had return of rhythm and pulses he was intubated and a right femoral central line was placed, Levothroid drip was started. Patient was admitted to ICU for close monitoring. Problem list: #Acute hypoxic respiratory failure secondary to aspiration pneumonia #Septic shock #Status post cardiac arrest and CPR #Anemia of chronic disease #Recently diagnosed esophageal cancer #Acute kidney injury #Nephrotic syndrome Cardiology -Off Levofed -Blood pressure and heart rate are stable -Continue morphine 2 mg every 4 when necessary for opioid withdrawl -Cardiac consultation was obtained, thanks recommendation -Echo 12/08/16 CONCLUSIONS 1. This was a technically difficult study due to the patient's body habitus and clinical status. 2. Minimal to mild aortic sclerosis is present with no valvular stenosis or insufficiency. 3. Mitral leaflet thickeining is present with mild anular calcification and mild mitral insufficiency. 4. A very small pericardial effusion is present. 5. The left ventricular chamber size is normal with an ejection fraction of 55- 60%. Abnormal septal motion is present suggestive of the presence of pulmonary hypertension. 6. The right heart structures were not optimally visualized. Mild tricuspid insufficiency is present but the RV systolic pressure was not accurately assessed. ID -Cefazolin 1000 mg Q8, leukocytosis without bands, spike a fever yesterday MAXIMUM TEMPERATURE 100, will obtain ID consultation -Patient was initially on ceftriaxone and vancomycin for aspiration pneumonia, recent history of hospitlization in september -ubri -1 set of blood culture and sputum culture are positive for methicillin sensitive staph aureus Respiratory -We will switch to by mouth prednisone with slow tapering 40 mg daily -Mechanical ventilation FiO2 30%, PEEP of 5 saturating well, chest x-ray daily -Ventilation bundle Neurology -Reports for 2 seizure episodes overnight that required Ativan -Neuro consultation was obtained, thanks recommendation -Keppra 500 mg twice a day IV was started today -Will obtain EEG and CT head -EEG 12/09 Impression: Burst/suppression pattern, often seen in severe anoxic encephalopathy, and usually associiated with a poor prognosis -2 CT scans head did not show acute intracranial changes -Guarding prognosis Hematology oncology -Patient was recently diagnosed with esophageal cancer T1N2 -Oncology consultation was obtained, thanks for recommendation Nephrology -Patient has history of nephrotic syndrome, albumin on admission 1.5, urine albumin more than 300 -Progressing pedal edema -Positive fluid balance by almost 1 L -Continue losartan 50 mg daily to lower intraglomerular pressure and hence reduce protien excretion Metabolic -Replete electrolytes as needed Alimentary -Nothing by mouth -Nutrition consultation was obtained for tube feeding *Chext x ray today 12/14 revealed 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 patient is known to have this problem propably related to chronic steroid vs drug use DVT prophylaxis heparin subcutaneous Code full Consultation cardiology, neuro, nutrition, social media marketing specialist Goal of care meeting was held today, patient will be comfort care only and will be extubated terminally. All medication will be discontinued. We'll start morphine drip at 5 mg per hour and increase as needed, scopolamine patch. Problem List: 1. Seizure 2. Esophageal cancer 3. Septic shock 4. Aspiration pneumonia 5. Acute kidney injury Pain Ratin Tomorrow's Labs & Rationales: NONE Plan DVT/Prophylaxis: mechanical, pharmacological
--- NOTE | 2016-12-15 08:24 | PN- CRCU ---
Subjective HPI/Critical Care Issues: The patient remains on mechanical ventilation. He intermittently appears to be tracking with his eyes. He has no spontaneous purposeful movements. His oxygen requirement remained stable at 35%. The patient is afebrile, noting his Cefazolin has been increased per ID. Objective Current Medications: Current Medications Sig/Silvana Start time Last Medication Dose Route Stop Time Status Admin Albuterol Sulfate 3 ML BID 12/09 1000 AC 12/15 INH 0811 Artificial Tears 2 GTT TID 12/09 2200 AC 12/14 OPH 2122 Cefazolin Sodium 2,000 MG IQ8 12/15 0000 CAN IV Cefazolin Sodium 2 GM IQ8 12/15 0000 AC 12/15 N/A 1 UNIT IV 0032 Cefazolin Sodium 1,000 MG IQ8 12/13 0000 DC 12/14 IV 1555 Heparin Sodium 5,000 UNIT Q8 12/08 1726 AC 12/15 (Porcine) SC 0545 Insulin Human Regular 0 Q6 12/12 0838 AC 12/12 SC 1136 Levetiracetam 500 MG Q12 12/14 1000 AC 12/14 N/A 1 UNIT IV 2107 Losartan Potassium 50 MG DAILY 12/13 1000 AC 12/14 PO 0939 Methylprednisolone 40 MG DAILY 12/13 1000 DC 12/13 IV 0917 Morphine Sulfate 2 MG Q3P PRN 12/13 0900 AC 12/15 IV 0240 Pantoprazole Sodium 40 MG DAILY 12/08 1845 AC 12/14 IV 0939 Prednisone 40 MG DAILY 12/14 1000 AC 12/14 PO 0939 Vital Signs & I&O Last 24 Hrs of Vitals and I&O: Vital Signs Date Time Temp Pulse Resp B/P B/P Pulse O2 O2 Flow FiO2 Mean Ox Delivery Rate 12/15 0552 35 12/15 0400 98 Ventilator 35% 12/15 0325 35 12/15 0055 35 12/15 0000 97.6 82 19 137/71 98 Ventilator 35% 12/15 0000 98 Ventilator 35% 12/14 2240 35 12/14 2000 93 Ventilator 40% 12/14 1910 35 12/14 1620 40 12/14 1600 5 Ventilator 40% 12/14 1600 99.4 82 22 140/70 97 Ventilator 40% 12/14 1200 98 Ventilator 40% 12/14 1100 40 12/14 0939 95 158/90 12/14 0830 30 Intake & Output 12/15 1600 12/15 0800 12/15 0000 Intake Total 1167 1220 Output Total 700 1200 Balance 467 20 Intake, IV 100 100 Intake, Tube 682 760 Feeding Intake, Tube 385 360 Irrigant Number 1 3 Bowel Movements Output, Urine 700 1200 Physical Exam General Appearance intubated, opens eyes to external stimuli Skin dry skin on bilateral lower extremities Skin Temp/Moisture Exam: Cool/Dry Sepsis Skin Exam (color): Mottled, Pale HEENT Atraumatic Cardiovascular Regular Rate, Normal S1, Normal S2 Lungs b/l ronchii and rales Abdomen Normal Bowel Sounds, Soft, No Tenderness Extremities Clubbing noted Results Last 24 Hrs of Lab Results: Laboratory Tests 12/15/16 0435: Anion Gap 1 L, Estimated GFR > 60, Glucose 91, Calcium 7.4 L, Phosphorus 4.3, Magnesium 2.0, Total Bilirubin < 0.1 L, AST 22, ALT 30, Albumin 1.7 L, Prealbumin 19.6, CBC w Diff NO MAN DIFF REQ, RBC 3.32 L, MCV 81.8, MCH 26.1 L, RDW 18.1 H, MPV 6.7 L, Gran % 66.3, Lymphocytes % 24.0, Monocytes % 7.1, Eosinophils % 2.4, Basophils % 0.2, Absolute Granulocytes 9.3 H, Absolute Lymphocytes 3.4, Absolute Monocytes 1.0 H, Absolute Eosinophils 0.3, Absolute Basophils 0, PUBS MCHC 31.9 L Diagnostic Data CXR Findings: CXR pending. Impression/Plan Impression/Plan Impression/Plan: 1. Respiratory failure and septic shock due to aspiration pneumonia. Sputum positive for group B strep and staph aureus. BC positive for group B strep. 2. Leukocytosis, improved fever, on Cefazolin. 3. Status post cardiac arrest and CPR with anoxic brain injury. 4. History of COPD, ARDS and ILD with 2 L home oxygen dependence. 5. Anemia of chronic disease, without active bleeding. 6. Recently diagnosed esophageal cancer - awaiting chemoradiation. 7. History of nephrotic syndrome. 8. Malnutrition. 9. Chronic pain with opiate dependency. 10. Known diastolic heart failure. 11. Known history of hypertension. Recommendations: * Continue current vent settings. * Weaning trials - will attempt CPAP trial today. * Continue tube feeds at goal. * Change to prednisone 30 mg daily, will taper off slowly. * Continue total respiratory care, and nebulizer treatments. * Accu-Cheks to be monitored. * Continue cefazolin, appreciate ID input. * Continue DVT/GI prophylaxis - ventilator bundle. * Follow up cardiology and neurology's recommendations. * Continue all supportive care. * I will have a family meeting later today, noting the patient has the potential for a poor prognosis.
--- NOTE | 2016-12-15 08:47 | RADIOLOGY REPORT ---
EXAMINATION: XR PORTABLE CHEST CLINICAL INFORMATION: Mechanical ventilation ET tube position. COMPARISON: Prior examinations most recent chest 12/15/2016 at 6:14 AM TECHNIQUE: Portable AP 85 degree upright view of the chest was obtained. FINDINGS: Exam is limited as the apex of the lungs is outside the [id number] the examination. The endotracheal tube tip is noted with the tip 4.7 cm above the luis enrique. NG tube tip below diaphragm in the region of the stomach. Lungs and pleural spaces: Persistent but slightly decreased interstitial markings suggestive of slight improvement in the previously suspected pulmonary edema. No focal consolidation. The cardiac silhouette mediastinum pulmonary vascularity are normal. IMPRESSION: Endotracheal tube 4.7 cm above luis enrique. Slight decrease in interstitial markings compatible with slight improvement in the previously suspected pulmonary edema
--- NOTE | 2016-12-15 08:51 | PN- Neurology ---
Subjective Subjective: Not tolerating ventilatory weaning trial per curator of photography and prints Review of Systems: Unobtainable Objective Vital Signs and I&Os Vital Signs Date Time Temp Pulse Resp B/P B/P Pulse O2 O2 Flow FiO2 Mean Ox Delivery Rate 12/15 0552 35 12/15 0400 98 Ventilator 35% 12/15 0325 35 12/15 0055 35 12/15 0000 97.6 82 19 137/71 98 Ventilator 35% 12/15 0000 98 Ventilator 35% 12/14 2240 35 12/14 2000 93 Ventilator 40% 12/14 1910 35 12/14 1620 40 12/14 1600 5 Ventilator 40% 12/14 1600 99.4 82 22 140/70 97 Ventilator 40% 12/14 1200 98 Ventilator 40% 12/14 1100 40 12/14 0939 95 158/90 Intake & Output 12/15 1600 12/15 0800 12/15 0000 12/14 1600 12/14 0800 12/14 0000 Intake Total 1167 1220 1040 1010 1080 Output Total 700 1200 1050 1150 3325 Balance 467 20 10 140 -2245 Intake, IV 100 100 160 0 Intake, Oral 0 Intake, Other 60 360 Intake, Tube 682 760 460 625 Feeding Intake, Tube 385 360 360 385 720 Irrigant Number 1 3 1 1 Bowel Movements Output, Urine 700 1200 1050 1150 3325 Patient 18 lb 7 oz Weight Weight Bed scale Measurement Method Physical Exam: Eyes open, no blink to visual threat, full extraocular motility intact pupillary responses, corneals, gag. Does not follow commands Current Medications: Current Medications Sig/Silvana Start time Last Medication Dose Route Stop Time Status Admin Albuterol Sulfate 3 ML BID 12/09 1000 AC 12/15 INH 0811 Artificial Tears 2 GTT TID 12/09 2200 AC 12/15 OPH 0943 Cefazolin Sodium 2,000 MG IQ8 12/15 0000 CAN IV Cefazolin Sodium 2 GM IQ8 12/15 0000 AC 12/15 N/A 1 UNIT IV 0846 Cefazolin Sodium 1,000 MG IQ8 12/13 0000 DC 12/14 IV 1555 Heparin Sodium 5,000 UNIT Q8 12/08 1726 AC 12/15 (Porcine) MT 0545 Insulin Human Regular 0 Q6 12/12 0838 AC 12/12 SC 1136 Levetiracetam 500 MG Q12 12/14 1000 AC 12/15 N/A 1 UNIT IV 0942 Losartan Potassium 50 MG DAILY 12/13 1000 AC 12/15 PO 0944 Morphine Sulfate 100 MG Q24H 12/15 1245 UNVr Dextrose/Water 100 ML IV Morphine Sulfate 2 MG Q3P PRN 12/13 0900 AC 12/15 IV 0908 Pantoprazole Sodium 40 MG DAILY 12/08 1845 AC 12/15 IV 0943 Prednisone 30 MG DAILY 12/15 1000 AC 12/15 PO 0943 Prednisone 40 MG DAILY 12/14 1000 DC 12/14 PO 0939 Scopolamine HBr 1 PAT ONE ONE 12/15 1245 UNVr TOP 12/15 1246 Results Last 24 Hours of Lab Results: Laboratory Tests 12/15 0435 Chemistry Sodium (137 - 145 mmol/L) 139 Potassium (3.5 - 5.1 mmol/L) 4.0 Chloride (98 - 107 mmol/L) 109 H Carbon Dioxide (22 - 30 mmol/L) 29 Anion Gap (5 - 16) 1 L BUN (9 - 20 mg/dL) 20 Creatinine (0.7 - 1.2 mg/dL) 0.6 L Estimated GFR (>60 ml/min) > 60 Glucose (65 - 99 mg/dL) 91 Calcium (8.4 - 10.2 mg/dL) 7.4 L Phosphorus (2.5 - 4.5 mg/dL) 4.3 Magnesium (1.6 - 2.3 mg/dL) 2.0 Total Bilirubin (0.2 - 1.3 mg/dL) < 0.1 L AST (17 - 59 U/L) 22 ALT (21 - 72 U/L) 30 Albumin (3.5 - 5.0 g/dL) 1.7 L Prealbumin (17.6 - 36.0 mg/dL) 19.6 Hematology CBC w Diff NO MAN DIFF REQ WBC (4.8 - 10.8 /CUMM) 14.0 H RBC (4.70 - 6.10 /CUMM) 3.32 L Hgb (14.0 - 18.0 G/DL) 8.7 L Hct (42 - 52 %) 27.1 L MCV (80.0 - 94.0 FL) 81.8 MCH (27.0 - 31.0 PG) 26.1 L RDW (11.5 - 14.5 %) 18.1 H Plt Count (130 - 400 /CUMM) 297 MPV (7.4 - 10.4 FL) 6.7 L Gran % (42.2 - 75.2 %) 66.3 Lymphocytes % (20.5 - 51.1 %) 24.0 Monocytes % (1.7 - 9.3 %) 7.1 Eosinophils % (0 - 5 %) 2.4 Basophils % (0.0 - 2.0 %) 0.2 Absolute Granulocytes (1.4 - 6.5 /CUMM) 9.3 H Absolute Lymphocytes (1.2 - 3.4 /CUMM) 3.4 Absolute Monocytes (0.10 - 0.60 /CUMM) 1.0 H Absolute Eosinophils (0.0 - 0.7 /CUMM) 0.3 Absolute Basophils (0.0 - 0.2 /CUMM) 0 PUBS MCHC (33.0 - 37.0 G/DL) 31.9 L Recent Imaging Studies: Hd CT -: stable; motion artifact EEG 12-14: Interpretation: The background is now continous with some variability between high amplitude irregular delta and theta activity and more regular 5-7 hertz moderate amplitude theta. At times there appears to be FIRDA (frontal intermittent rythmic delta) suggestive of deep cerebral injury and at other times more random frontal slow movement which may represent eye roving artifact. No epileptiform foci or activity recognized. No evident cerebral reaction to stimuli during the test. Impression: Abnormal with severe generalized slowing but the burst suppression pattern has resolved. No seizure activity recognized. 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
--- NOTE | 2016-12-15 09:42 | RADIOLOGY REPORT ---
EXAMINATION: XR PORTABLE CHEST CLINICAL INFORMATION: ET tube position. Mechanical ventilation. COMPARISON: Chest x-ray 12/14/2016. TECHNIQUE: Portable frontal view of the chest was obtained. FINDINGS: The endotracheal tube is noted with the tip approximately 5.1 cm above the luis enrique. There is an enteric tube extending into the stomach. There are 2 monitor leads overlying the chest. The lung jasso are moderately well expanded. There is mild prominence of the cardiac silhouette and central pulmonary vasculature, slightly decreased compared to the prior study and there has been slight improvement in aeration in the lower zones bilaterally. There are no large pleural effusions. Degenerative changes of both shoulders, left greater than right, is re-demonstrated. IMPRESSION: 1. No interval change in the position of the tubes when compared to the prior study. 2. Slight interval decrease in the mild pulmonary edema.
--- NOTE | 2016-12-15 10:20 | PN- Infect Dx ---
Subjective Subjective: Afebrile on steroids. Objective Last 24 Hrs of Vital Signs/I&O Vital Signs Date Time Temp Pulse Resp B/P B/P Pulse O2 O2 Flow FiO2 Mean Ox Delivery Rate 12/15 0944 97.7 83 30 147/89 12/15 0817 35 12/15 0552 35 12/15 0400 98 Ventilator 35% 12/15 0325 35 12/15 0055 35 12/15 0000 97.6 82 19 137/71 98 Ventilator 35% 12/15 0000 98 Ventilator 35% 12/14 2240 35 12/14 2000 93 Ventilator 40% 12/14 1910 35 12/14 1620 40 12/14 1600 5 Ventilator 40% 12/14 1600 99.4 82 22 140/70 97 Ventilator 40% 12/14 1200 98 Ventilator 40% 12/14 1100 40 Intake & Output 12/15 1600 12/15 0800 12/15 0000 Intake Total 1167 1220 Output Total 700 1200 Balance 467 20 Intake, IV 100 100 Intake, Tube 682 760 Feeding Intake, Tube 385 360 Irrigant Number 1 3 Bowel Movements Output, Urine 700 1200 Physical Exam Other Physical Findings: He is awake and appears to be tracking but is not clearly responsive to pain or voice Lungs bilateral rhonchi Heart regular rhythm with no murmur Abdomen is soft, with no obvious tenderness, positive bowel sounds Extremities no cyanosis, clubbing or edema Smith catheter is in place Results Last 24 Hours of Lab Results: Laboratory Tests 12/15 0435 Chemistry Sodium (137 - 145 mmol/L) 139 Potassium (3.5 - 5.1 mmol/L) 4.0 Chloride (98 - 107 mmol/L) 109 H Carbon Dioxide (22 - 30 mmol/L) 29 Anion Gap (5 - 16) 1 L BUN (9 - 20 mg/dL) 20 Creatinine (0.7 - 1.2 mg/dL) 0.6 L Estimated GFR (>60 ml/min) > 60 Glucose (65 - 99 mg/dL) 91 Calcium (8.4 - 10.2 mg/dL) 7.4 L Phosphorus (2.5 - 4.5 mg/dL) 4.3 Magnesium (1.6 - 2.3 mg/dL) 2.0 Total Bilirubin (0.2 - 1.3 mg/dL) < 0.1 L AST (17 - 59 U/L) 22 ALT (21 - 72 U/L) 30 Albumin (3.5 - 5.0 g/dL) 1.7 L Prealbumin (17.6 - 36.0 mg/dL) 19.6 Hematology CBC w Diff NO MAN DIFF REQ WBC (4.8 - 10.8 /CUMM) 14.0 H RBC (4.70 - 6.10 /CUMM) 3.32 L Hgb (14.0 - 18.0 G/DL) 8.7 L Hct (42 - 52 %) 27.1 L MCV (80.0 - 94.0 FL) 81.8 MCH (27.0 - 31.0 PG) 26.1 L RDW (11.5 - 14.5 %) 18.1 H Plt Count (130 - 400 /CUMM) 297 MPV (7.4 - 10.4 FL) 6.7 L Gran % (42.2 - 75.2 %) 66.3 Lymphocytes % (20.5 - 51.1 %) 24.0 Monocytes % (1.7 - 9.3 %) 7.1 Eosinophils % (0 - 5 %) 2.4 Basophils % (0.0 - 2.0 %) 0.2 Absolute Granulocytes (1.4 - 6.5 /CUMM) 9.3 H Absolute Lymphocytes (1.2 - 3.4 /CUMM) 3.4 Absolute Monocytes (0.10 - 0.60 /CUMM) 1.0 H Absolute Eosinophils (0.0 - 0.7 /CUMM) 0.3 Absolute Basophils (0.0 - 0.2 /CUMM) 0 PUBS MCHC (33.0 - 37.0 G/DL) 31.9 L Last 24 Hours of Alonso Results: No recent cultures Recent Imaging Studies: Chest x-ray December 15, personally reviewed, reveals a slight interval decrease in the mild pulmonary edema Assessment/Plan Impression: Condition remains poor, though EEG reportedly improved, with some suggestion of tracking, though he remains unresponsive secondary to anoxic encephalopathy. He remains afebrile with white blood cell count decreasing on a steroid taper and Cefazolin Day 7 of treatment for Group B strep sepsis presumably secondary to pneumonia, with Group B strep and Staph aureus isolated from the sputum culture. Suggestion: 1. Await decision regarding overall level of care 2. Continue Cefazolin
[2016-12-15 11:00] VITALS: BP 152/84
--- NOTE | 2016-12-15 12:47 | PN- Cardiology ---
Subjective Subjective: The patient remains intubated, alert but without purposeful movements. Neurology input pending Objective Vital Signs and I&Os Vital Signs Date Time Temp Pulse Resp B/P B/P Pulse O2 O2 Flow FiO2 Mean Ox Delivery Rate 12/15 1200 100 Ventilator 35% 12/15 1127 35 12/15 1100 96 Ventilator 35% 12/15 1100 97.7 97 21 152/84 96 Ventilator 35% 12/15 0944 97.7 83 30 147/89 12/15 0817 35 12/15 0552 35 12/15 0400 98 Ventilator 35% 12/15 0325 35 12/15 0055 35 12/15 0000 97.6 82 19 137/71 98 Ventilator 35% 12/15 0000 98 Ventilator 35% 12/14 2240 35 12/14 2000 93 Ventilator 40% 12/14 1910 35 12/14 1620 40 12/14 1600 5 Ventilator 40% 12/14 1600 99.4 82 22 140/70 97 Ventilator 40% Intake & Output 12/15 1600 12/15 0800 12/15 0000 12/14 1600 12/14 0800 12/14 0000 Intake Total 1167 1220 1040 1010 1080 Output Total 700 1200 1050 1150 3325 Balance 467 20 -10 -140 -2245 Intake, IV 100 100 160 0 Intake, Oral 0 Intake, Other 60 360 Intake, Tube 682 760 460 625 Feeding Intake, Tube 385 360 360 385 720 Irrigant Number 1 3 1 1 Bowel Movements Output, Urine 700 1200 1050 1150 3325 Patient 18 lb 7 oz Weight Weight Bed scale Measurement Method Current Medications: Current Medications Sig/Silvana Start time Last Medication Dose Route Stop Time Status Admin Albuterol Sulfate 3 ML BID 12/09 1000 AC 12/15 INH 0811 Artificial Tears 2 GTT TID 12/09 2200 AC 12/15 OPH 0943 Cefazolin Sodium 2,000 MG IQ8 12/15 0000 CAN IV Cefazolin Sodium 2 GM IQ8 12/15 0000 AC 12/15 N/A 1 UNIT IV 0846 Cefazolin Sodium 1,000 MG IQ8 12/13 0000 DC 12/14 IV 1555 Heparin Sodium 5,000 UNIT Q8 12/08 1726 AC 12/15 (Porcine) SC 0545 Insulin Human Regular 0 Q6 12/12 0838 AC 12/12 SC 1136 Levetiracetam 500 MG Q12 12/14 1000 AC 12/15 N/A 1 UNIT IV 0942 Losartan Potassium 50 MG DAILY 12/13 1000 AC 12/15 PO 0944 Morphine Sulfate 100 MG Q24H 12/15 1245 UNVr Dextrose/Water 100 ML IV Morphine Sulfate 2 MG Q3P PRN 12/13 0900 AC 12/15 IV 0908 Pantoprazole Sodium 40 MG DAILY 12/08 1845 AC 12/15 IV 0943 Prednisone 30 MG DAILY 12/15 1000 AC 12/15 PO 0943 Prednisone 40 MG DAILY 12/14 1000 DC 12/14 PO 0939 Scopolamine HBr 1 PAT ONE ONE 12/15 1245 UNVr TOP 12/15 1246 Results Last 48 Hrs of Labs/Mics: Laboratory Tests 12/15/16 0435: Anion Gap 1 L, Estimated GFR > 60, Glucose 91, Calcium 7.4 L, Phosphorus 4.3, Magnesium 2.0, Total Bilirubin < 0.1 L, AST 22, ALT 30, Albumin 1.7 L, Prealbumin 19.6, CBC w Diff NO MAN DIFF REQ, RBC 3.32 L, MCV 81.8, MCH 26.1 L, RDW 18.1 H, MPV 6.7 L, Gran % 66.3, Lymphocytes % 24.0, Monocytes % 7.1, Eosinophils % 2.4, Basophils % 0.2, Absolute Granulocytes 9.3 H, Absolute Lymphocytes 3.4, Absolute Monocytes 1.0 H, Absolute Eosinophils 0.3, Absolute Basophils 0, PUBS MCHC 31.9 L 12/14/16 0500: Anion Gap 3 L, Estimated GFR > 60, Glucose 83, Calcium 7.8 L, Phosphorus 3.3, Magnesium 2.1, Total Bilirubin 0.1 L, AST 27, ALT 34, Albumin 1.9 L, CBC w Diff MAN DIFF ORDERED, RBC 3.65 L, MCV 80.8, MCH 26.2 L, RDW 18.0 H, MPV 7.0 L, Gran % 68.5, Lymphocytes % 22.7, Monocytes % 8.1, Eosinophils % 0.6, Basophils % 0.1, Absolute Granulocytes 12.2 H, Absolute Lymphocytes 4.0 H, Absolute Monocytes 1.4 H, Absolute Eosinophils 0.1, Absolute Basophils 0, Platelet Estimate ADEQUATE, Hypochromic-Microcytic 1+, PUBS MCHC 32.5 L Assessment/Plan Assessment/Plan Assessment: 1. S/P bradycardic cardiac arrest likley related to primary pulmonary event. 2. Acute respiratory failure with possible aspiration pneumonia 3. Shock 4. ILD 5. History of nephrotic syndrome. 6. Probable anoxic encephalopathy Recommendations: -For now, continue as per the critical care team. Continue supportive care -The patient's heart rate and blood pressure are stable today. Continue as per critical care. -Further plans pending -Continue all current medical therapy. Losartan re-added to regimen -Await follow-up input from neurology -Await further input from family about long-term goals of care.
--- NOTE | 2016-12-15 12:52 | Event Note ---
Event Note Event Note: I had a lengthy conversation with the patient's sister, , mother, father and niece. I updated them on the patient's condition. I explained to them the findings as reported by neurology, noting the patient has anoxic brain injury with an overall poor prognosis. The patient's family explained that the patient has stated he would not want to live on mechanical ventilation or in a residential. Given his history of medical issues including diastolic congestive heart failure, hypertension, oxygen dependent COPD, interstitial lung disease, nephrotic syndrome, neuropathy and chronic pain, the patient's family are all in agreement that the patient should be made comfort measures and taken off all life support. Everyone is in agreement that this would be consistent with the patient's wishes if he was able to contribute to the conversation. I discussed the plan of care with housestaff including initiating a morphine drip and terminal extubation. I discussed this with Dr. Willingham who is very familiar with the patient's clinical case as well and all caregivers are in agreement. The patient's family understands the overall poor prognosis and the consequences of terminal extubation. We will continue to follow.
--- NOTE | 2016-12-15 16:42 | Discharge Summary ---
See Addendum Visit Information Visit Dates Admission Date: 12/08/16 Discharge Date: 12/15/16 Hospital Course Course Attending Physician: Fabio MEZA MD Primary Care Physician: YULI FRAZIER MD Hospital Course: Mr. Monge is 51-year-old gentleman with past medical history significant for diastolic CHF, hypertension, COPD with 2 L home oxygen dependence, ILD, history of large with prolonged mechanical ventilation, CKD, neuropathy that presented to the emergency room via ambulance after family found him unresponsive. Patient went into cardiac arrest and bradycardia CPR was administered with 2 rounds of epinephrine, subsequently he had return of rhythm and pulses he was intubated and a right femoral central line was placed, Levothroid drip was started. Patient was admitted to ICU for close monitoring. Problem list: #Acute hypoxic respiratory failure secondary to aspiration pneumonia #Septic shock #Status post cardiac arrest and CPR #Anemia of chronic disease #Recently diagnosed esophageal cancer #Acute kidney injury #Nephrotic syndrome Cardiology -Patient presented with septic shock, received IV fluid and vasopressor, blood pressure improved. Cardiology consultation was obtained, echocardiogram Problem list: #Acute hypoxic respiratory failure secondary to aspiration pneumonia #Septic shock #Status post cardiac arrest and CPR #Anemia of chronic disease #Recently diagnosed esophageal cancer #Acute kidney injury #Nephrotic syndrome Septic shock status post CPR -On admission, patient received IV fluid boluses and was started on Levothroid, blood pressure improved, cardiac consultation was obtained, echocardiogram was obtained that revealed mild aortic sclerosis, mitral leaflet thickening with mild annular calcification and mild mitral insufficiency, very small pericardial effusion, left ventricular ejection fraction 5560 percent, abnormal septal motion that may represent pulmonary hypertension, mitral tricuspid insufficiency Aspiration pneumonia -Patient was initially on ceftriaxone and vancomycin for aspiration pneumonia, recent history of hospitlization in september. Antibiotic was switched later to cefazolin based on blood and sputum culture positive for methicillin sensitive staph aureus , ID consultation was obtained Acute hypoxic respiratory failure -Patient was intubated on admission, mechanical ventilation FiO2 30%, chest x- ray was obtained daily to ensure ET tube position, was started on Solu-Medrol and switched later to via tube feeding prednisone. Based on patient wishes expressed by his sister (CHERYL), terminal extubation was done and hospice evaluation was obtained New onset of seizure and anoxic encephalopathy -Reports of new onset of seizure that required Ativan, neuro consultation was obtained, Keppra 500 mg twice a day IV was started. CT head on admission and later the hospital stay didn't show any intracranial pathology, EKG was obtained as well with poor prognosis -EEG 12/09 Impression: Burst/suppression pattern, often seen in severe anoxic encephalopathy, and usually associiated with a poor prognosis -EEG 12/14 Impression Abnormal with severe generalized slowing but the burst suppression pattern has resolved. No seizure activity recognized. Esophageal cancer -Patient was recently diagnosed with esophageal cancer T1N2, Oncology consultation was obtained, no further recommendation at this point Nephrotic syndrome -Patient has history of nephrotic syndrome, albumin on admission 1.5, urine albumin more than 300, Progressing pedal edema with positive fluid balance, will restart losartan 50 mg daily to lower intraglomerular pressure and hence reduce protien excretion as patient's blood pressure allowed DVT prophylaxis heparin subcutaneous Code full Consultation cardiology, neuro, nutrition, social work administrator Allergies: Coded Allergies: Iodinated Contrast- Oral and IV Dye (IODINATED CONTRAST MEDIA - IV DYE) (RED RASH TOLERATES WITH BENADRYL 01/12/16) Disposition Summary Disposition Principal Diagnosis: Septic shock status post CPR Additional Diagnosis: Anoxia encephalopathy' Discharge Disposition: hospice - medical facilit Discharge Instructions General Discharge Information Code Status: Hospice Patient's Diet: -- Patient's Activity: -- Follow-Up Instructions/Appts: -- Copies To: YULI FRAZIER MD
== END 2016-12-15 16:43 | disposition hospice, home (50) | DRG 870 ==
LOC: ERH 14:44 → ERHI 16:39 → CRI 16:39 → ENRESERV 17:22 → CRI 19:00
PROVIDERS: Emergency Medicine; Internal Medicine; Ophthalmology; Student in an Organized Health Care Education/Training Program; ADMIT Internal Medicine Pulmonary Disease
PROC: 0BH17EZ Insertion of Endotracheal Airway into Trachea, Via Natural or Artificial Opening (ICD-10-PCS; principal; 2016-12-08)
PROC: 5A1955Z Respiratory Ventilation, Greater than 96 Consecutive Hours (ICD-10-PCS; principal; 2016-12-08)
PROC: 30233N1 Transfusion of Nonautologous Red Blood Cells into Peripheral Vein, Percutaneous Approach (ICD-10-PCS; 2016-12-08)
DX: A41.9 Sepsis, unspecified organism (principal); I46.9 Cardiac arrest, cause unspecified; J96.01 Acute respiratory failure with hypoxia; J69.0 Pneumonitis due to inhalation of food and vomit; R65.21 Severe sepsis with septic shock; G93.1 Anoxic brain damage, not elsewhere classified; J15.211 Pneumonia due to Methicillin susceptible Staphylococcus aureus; J15.3 Pneumonia due to streptococcus, group B; E46 Unspecified protein-calorie malnutrition; C15.9 Malignant neoplasm of esophagus, unspecified; I13.0 Hypertensive heart and chronic kidney disease with heart failure and stage 1 through stage 4 chronic kidney disease, or unspecified chronic kidney disease; Z51.5 Encounter for palliative care; J44.9 Chronic obstructive pulmonary disease, unspecified; N17.9 Acute kidney failure, unspecified; E87.2 Acidosis; I50.32 Chronic diastolic (congestive) heart failure; Z99.81 Dependence on supplemental oxygen; G62.9 Polyneuropathy, unspecified; F11.20 Opioid dependence, uncomplicated; E87.1 Hypo-osmolality and hyponatremia; D64.9 Anemia, unspecified; N18.9 Chronic kidney disease, unspecified; E87.6 Hypokalemia; Z68.24 Body mass index [BMI] 24.0-24.9, adult; E11.9 Type 2 diabetes mellitus without complications
CPT/HCPCS: CCU; 36415; 80307; 81001; 82436; 86920; 87040; 87070; 87071; 87086; 87147; 87449; 87450; 93005; 93010; 93306; 94799; 95816; 96374; 96375; 99291; G0480; J0610; J0690; J0713; J1644; J1940; J1953; J2060; J2270; J2310; J2920; J3370; J7040; J7512; P9016

== ENCOUNTER 2016-12-15 16:47 | Inpatient (IN) | payer OTHER ==
--- NOTE | 2016-12-15 17:05 | PN- Att Addend ---
Attending Addendum Attending Brief Note 51 year old male admitted to hospice care in the ICU after terminal extubation. Patient with multiple medical problems including chronic diastolic heart failure , chronic respiratory failure with interstitial lung disease, neuropathy and chronic opiate dependence, recently diagnosed esophageal cancer, malnutrition nephrotic syndrome and other problems. Here status post CPR with anoxic brain damage with acute respiratory failure and septic shock with aspiration pneumonia. After a long meeting with the family, terminal extubation and comfort measures pursued. Patient survived more than one hour after terminal extubation and now is being admitted to inpatient hospice care. Patient is imminently dying.
[2016-12-15 22:26] VITALS: BP 142/70
[2016-12-16 06:18] VITALS: BP 120/70
--- NOTE | 2016-12-16 14:16 | PN- Hospice ---
Subjective Subjective: Family at bedside. Nursing reports significant chest congestion/tracheal secretions even on scheduled Robinul and 1 scopolamine patch. Appears comfortable. Continues on morphine drip 7mg/hr. Responsive to physical touch/ repositioning with LE movement. Objective Last 24 Hrs of Vital Signs/I&O Vital Signs Date Time Temp Pulse Resp B/P B/P Pulse O2 O2 Flow FiO2 Mean Ox Delivery Rate 12/16 08 Nasal 4.0L Cannula 12/16 06 98.1 82 20 120/70 95 Nasal 4.5L Cannula 12/16 0000 Nasal 4.0L Cannula 12/15 2226 98.1 74 18 142/70 100 Nasal 4.0L Cannula 12/15 2150 Nasal 4.0L Cannula Intake & Output 12/16 1600 12/16 0800 12/16 0000 Intake Total 56 0 Output Total 400 Balance -344 0 Intake, IV 56 Intake, Oral 0 0 Number 0 Bowel Movements Output, Urine 400 Physical Exam General Appearance: no apparent distress, eyes closed, comfortable Head: atraumatic Respiratory: rhonchi Cardiovascular: regular rate/rhythm Assessment/Plan Assessment/Recommendations: 51 year old male admitted to hospice care in the ICU after terminal extubation. Pt with recently diagnosed esophageal cancer, was at cancer center receiving treatment and collapsed. Here status post CPR with anoxic brain damage with acute respiratory failure and septic shock with aspiration pneumonia. For congestion, increase scopolamine patch to 3 patches, add Robinul 400mcg every 4 hours as needed, continue with scheduled doses. For seizure prevention, restlessness, add ativan 1mg IV every 6 hours. Add ativan 2mg IV x 1 if has seizure and contact MD. All discussed with family and nursing.
[2016-12-17 07:01] VITALS: BP 112/62
--- NOTE | 2016-12-17 15:57 | PN- Hospice ---
Subjective Subjective: Family at bedside. Pt is unresponsive, with periods of apnea. Appears comfortable, remains on morphine drip at 7mg/hr. Received 1 dose as needed ativan in addition to scheduled dose. Objective Last 24 Hrs of Vital Signs/I&O Vital Signs Date Time Temp Pulse Resp B/P B/P Pulse O2 O2 Flow FiO2 Mean Ox Delivery Rate 12/17 08 Nasal 4.0L Cannula 12/17 07 97.6 89 20 112/62 96 Nasal Cannula 12/16 1600 Nasal 4.0L Cannula Intake & Output 12/17 1600 12/17 0800 12/17 0000 Intake Total 100 100 100 Output Total 1030 400 Balance -930 100 -300 Intake, IV 100 100 100 Intake, Oral 0 0 Output, Urine 1030 400 Physical Exam General Appearance: comfortable, sedated Respiratory: rhonchi (upper airway), RR 10 with periods of apnea Cardiovascular: regular rate/rhythm Abdomen: soft Extremities: no edema, no mottling Current Medications: Current Medications Sig/Silvana Start time Last Medication Dose Route Stop Time Status Admin Acetaminophen 650 MG Q4P PRN 12/15 1700 AC AL Artificial Tears 2 GTT Q2P PRN 12/15 1700 AC OU Bisacodyl 10 MG DAILY NEEDED PRN 12/15 1700 AC AL Glycopyrrolate 400 MCG Q4P PRN 12/16 1400 AC 12/16 IV 2102 Glycopyrrolate 400 MCG Q4 12/15 1800 AC 12/17 IV 1422 Lorazepam 1 MG Q6 12/16 1800 AC 12/17 IV 1204 Lorazepam 2 MG ONE TIME PRN 12/16 1400 AC IV Lorazepam 1 MG Q1 NEEDED PRN 12/15 2145 AC 12/17 IV 0125 Morphine Sulfate 100 MG Q14H 12/15 2200 AC 12/17 Dextrose/Water 100 ML IV 1310 Scopolamine HBr 3 PAT Q72 12/16 1400 AC 12/16 TOP 1547 Assessment/Plan Assessment/Recommendations: 51 year old male admitted to hospice care in the ICU after terminal extubation. Pt with recently diagnosed esophageal cancer, was at cancer center receiving treatment and collapsed. Here status post CPR with anoxic brain damage with acute respiratory failure and septic shock with aspiration pneumonia. For congestion, utilize as needed Robinul in addition to scheduled doses. Turn on side and place in trendelenburg to facilitate gravity drainage. Discussed with family and nursing.
[2016-12-18 06:28] VITALS: BP 96/40
--- NOTE | 2016-12-18 13:29 | PN- Att Addend ---
Attending Addendum Attending Brief Note Patient seen and examined, sounds very congested. Family's present at bedside. Vital Signs Date Time Temp Pulse Resp B/P B/P Pulse O2 O2 Flow FiO2 Mean Ox Delivery Rate 12/18 0804 100.8 12/18 0800 Nasal 4.0L Cannula 12/19 627 101.8 90 14 96/40 90 Room Air 12/18 0600 101.0 12/17 2343 Nasal 4.0L Cannula 12/17 1600 Nasal 4.0L Cannula on exam; patient unresponsive, sounds congested. agonal breathing. A/P; 51 year old male admitted to hospice care in the ICU after terminal extubation. Pt with recently diagnosed esophageal cancer, was at [facility] center receiving treatment and collapsed. Here status post CPR with anoxic brain damage with acute respiratory failure and septic shock with aspiration pneumonia. Patient on scopolamine patch as well as Robinul for the congestion. I spoke with hospice nurse and she recommends increasing the dose of Ativan from every 6 to every 4. Continue all other current medications for comfort and symptom management for hospice care. D/W family at [facility].
--- NOTE | 2016-12-20 12:58 | Discharge Summary ---
Visit Information Visit Dates Admission Date: 12/15/16 Discharge Date: 12/18/16 Hospital Course Course Attending Physician: KHLOE GILL MD. Primary Care Physician: YULI FRAZIER MD Hospital Course: 51 year old male admitted to hospice care in the ICU after terminal extubation. Pt with recently diagnosed esophageal cancer, was at [facility] receiving treatment and collapsed. Here status post CPR with anoxic brain damage with acute respiratory failure and septic shock with aspiration pneumonia. He was kept comfortable with morphine drip, scheduled ativan and medications for secretions, Robinul and scopolamine, until he passed peacefully with family at bedside. Allergies: Coded Allergies: Iodinated Contrast Media - Oral and (IODINATED CONTRAST MEDIA - IV DYE) (RED RASH TOLERATES WITH BENADRYL 01/12/16) Disposition Summary Disposition Principal Diagnosis: Acute hypoxic respiratory failure Septic shock Aspiration pneumonia Anoxic brain injury Cardiac arrest Additional Diagnosis: Esophageal cancer Discharge Disposition: Discharge Instructions General Discharge Information Code Status: Hospice Patient's Diet: N/A Patient's Activity: N/A Follow-Up Instructions/Appts: N/A Copies To: YULI FRAZIER MD
== END 2016-12-18 13:35 | disposition expired | DRG 189 ==
LOC: CRI 16:47 → 2NA 21:45
PROVIDERS: ADMIT Internal Medicine
DX: J96.00 Acute respiratory failure, unspecified whether with hypoxia or hypercapnia (principal); R65.21 Severe sepsis with septic shock; I46.9 Cardiac arrest, cause unspecified; J69.0 Pneumonitis due to inhalation of food and vomit; G93.1 Anoxic brain damage, not elsewhere classified; A41.9 Sepsis, unspecified organism; C15.9 Malignant neoplasm of esophagus, unspecified; Z51.5 Encounter for palliative care
CPT/HCPCS: J2270